=== PATIENT | female | born 1950 | race Caucasian/White ===

== ENCOUNTER 2021-12-11 11:32 | Emergency (ER) | payer MEDICARE, MEDICAID, SELFPAY ==
--- NOTE | ~2021-12-11 | CT_ITS ---
EXAMINATION: CT abdomen pelvis wo con DATE: 12/11/2021 12:40 INDICATION: Lower abdominal pain TECHNIQUE: Computed tomography (CT) of the abdomen and pelvis was performed without intravenous contr ast. Automated exposure control and iterative reconstruction technique were employed. The dose-length product was 558.42 mGy-cm. COMPARISON: 02/03/2015 FINDINGS: Small fat-containing diaphragmatic hernia arising along the posterior dome of the right hemidiaphragm . Lung bases are clear. Heart size is normal. No pericardial or pleural effusion. Small sliding-type hiatal hernia. Cholecystectomy clips the gallbladder fossa. Liver, spleen, pancreas, bilateral adrena l glands and kidneys are normal. Bladder, uterus and bilateral adnexa are unremarkable. Moderate dive rticulosis along the descending and sigmoid colon without adjacent from 3 change to suggest diverticu litis. Small bowel and appendix are normal. No free intraperitoneal gas or fluid. No pathologically e nlarged abdominal or pelvic lymphadenopathy. Chronic appearing superior endplate compression fracture s at T12 and L1 with approximately 20% vertebral body height loss which are new since the prior study . Severe lower lumbar spondylosis. Tiny fat-containing umbilical hernia. IMPRESSION: 1. No acute intra-abdominal/pelvic process. 2. Diverticulosis. 3. Small sliding-type hiatal hernia. Reviewed, dictated and finalized at location A.
[2021-12-11 11:37] VITALS: BP 138/85; PULSE 86; RESP 16; TEMP 36.8; O2SAT 96
[2021-12-11 12:05] LABS: Basophils Absolute Auto 0.1 K/mm3 (0.0-0.1); Basophils Percent Auto 0.7 % (0.2-1.2); Eosinophils Absolute Auto 0.5 K/mm3 (0-0.3); Eosinophils Percent Auto 4.2 % (0-4.4); Hemoglobin 15.5 g/dL (12.0-15.0); Immature Granulocyte Absolute 0.02 K/mm3 (0.00-0.031); Immature Granulocyte Percent A 0.2 % (0-0.5); Lymphocytes Percent Auto 25.1 % (18.3-44.2); Mean Corpuscular Hemoglobin 30.6 pg (26-34); Mean Corpuscular Volume 92.7 fl (80-100); Mean Platelet Volume 9.3 fl (7.4-10.4); Monocytes Absolute Auto 0.7 K/mm3 (0.1-0.6); Monocytes Percent Auto 6.1 % (2.6-8.5); Neutrophils Absolute Auto 6.8 K/mm3 (1.3-6.7); Neutrophils Percent Auto 63.7 % (45.5-73.1); Platelet Count Result 318 k/mm3 (150-375); Red Blood Count 5.07 M/mm3 (4.2-5.4); Red Cell Distribution Width 13.3 % (11.5-14.5); White Blood Count 10.7 K/mm3 (4.5-10.0)
--- NOTE | 2021-12-11 12:18 | ED.GENADULT ---
HPI - General Adult General Chief complaint: Urogenital-Female Stated complaint: UTI Time Seen by Provider: 12/11/21 12:04 Source: RN notes reviewed History of Present Illness HPI narrative: Patient presents to emergency room from home for dysuria. Patient states that she been having dysuria for the past 1 week with urinary frequency as well as some blood in her urine. States associate with some pain in bilateral lower abdomen and some mild right flank pain she denies any fevers or chills chest pain shortness of breath or any other symptoms. States she does have a history of recurrent UTIs patient states she currently takes Percocet for pain last Percocet was at 4 AM this morning Related Data Home Medications Medication Instructions Recorded Confirmed albuterol sulfate 90 mcg/actuation 2 puff inhalation QID PRN Pain 06/22/19 aerosol inhaler (ProAir HFA) (Scale Score 4-6) fluticasone propionate 50 2 spray intranasal DAILY 06/22/19 mcg/actuation nasal spray,suspension (Flonase Allergy Relief) oxycodone-acetaminophen 10 mg-325 1 tablet PO Q6H PRN Pain 06/22/19 mg tablet Allergies Allergy/AdvReac Type Severity Reaction Status Date / Time erythromycin base Allergy Unknown Hives Verified 12/11/21 11:45 tramadol Allergy Unknown Hives Verified 12/11/21 11:45 Review of Systems Review of Systems: Gen.: Denies fevers or chills ENT: Denies congestion Respiratory: Denies shortness of breath or cough CV: Denies chest pain or palpitations GI: See HPI see HPI Musculoskeletal: Denies back pain or muscle pain Neuro: Denies numbness, tingling, weakness or focal weakness Skin: Denies rash Except as documented, all other systems reviewed and negative [facility] Past Medical History Medical History Anxiety Cataract Fibromyalgia Leukemia Social History Social History Smoking status: Former smoker Tobacco type: cigarettes Exam Narrative: APPEARANCE: No acute distress, nontoxic, resting in bed HEENT: Normocephalic, atraumatic, OMM RESPIRATORY: No respiratory distress, clear to auscultation bilaterally with no rhonchi wheezing or rales CARDIOVASCULAR: RRR s murmur ABDOMINAL: Soft nondistended tender palpation right lower quadrant and left lower quadrant no tenderness right upper quadrant left lower quadrant no rebound or guarding, right flank tenderness MUSCULOSKELETAl: Moves all extremities. No clubbing, cyanosis or edema. NEURO: Awake and alert. Following commands, speech normal, no focal deficits SKIN:: Warm, dry. Normal Color PSYCHIATRIC: Normal affect/mood Course Course Emergency Course: Discussed with patient results of workup and diagnosis. Discussed need for follow-up with primary care, proper use of medication, and reasons to return to the emergency department. Patient understands and agrees to current treatment plan Vital Signs Vital signs: Vital Signs Temperature 98.2 F 12/11/21 11:37 Pulse Rate 86 12/11/21 11:37 Respiratory Rate 16 12/11/21 11:37 Blood Pressure 138/85 12/11/21 11:37 Pulse Oximetry 96 12/11/21 11:37 Oxygen Delivery Room Air 12/11/21 11:37 Temperature 98.2 F 12/11/21 11:37 Pulse Rate 86 12/11/21 11:37 Respiratory Rate 16 12/11/21 11:37 Blood Pressure 138/85 12/11/21 11:37 Pulse Oximetry 96 12/11/21 11:37 Oxygen Delivery Room Air 12/11/21 11:37 Medical Decision Making MDM Narrative Medical decision making narrative: Patient's abdomen is soft without significant pain or signs of surgical abdomen on serial exams. Lab and x-ray evaluations are reviewed and patient is felt to be a reasonable candidate for outpatient management. Patient was instructed as to limitations of x-ray and laboratory evaluation and encouraged to return to ED or primary physician for repeat exam in 12 hours if continued or worsening pain Vital Signs
[2021-12-11 12:20] LABS: Add Urine Microscopic? YES; Appearance Urine Clear (Clear); Bilirubin Urine Negative (Negative); Blood Urine 1+ (Negative); Color Urine Yellow (Yellow); Glucose Urine UA Negative (Negative); Ketones Urine Negative (Negative); Leukocyte Esterase Ur 1+ LEU/UL (Negative); Nitrate Urine Negative (Negative); Protein Urine Negative (Negative); Urobilinogen Urine 0.2 mg/dL (<2.0)
[2021-12-11 12:32] LABS: Mucus Urine Rare /lpf; Squamous Epithelial Cell Urine Few /hpf (Few); Transitional Epi Cells Urine Rare /hpf (None Seen)
[2021-12-11] MEDS: SODIUM CHLORIDE 0.9% IV 1,000 ML 999 ML IV CONT (12:56)
[2021-12-11 13:13] LABS: Alanine Aminotransferase 17 U/L (6-35); Albumin Level 4.4 g/dL (3.5-5.1); Alkaline Phosphatase 96 U/L (38-126); Anion Gap 5 mmol/L (8-16); Aspartate Amino Transferase 30 U/L (14-36); Bilirubin,Total 0.3 mg/dL (0.2-1.3); Blood Urea Nitrogen 10 mg/dL (7-17); Calcium 8.9 mg/dL (8.4-10.2); Carbon Dioxide 25 mmol/L (22-30); Chloride 103 mmol/L (98-107); Estimated CRCL calculation 53 ml/min; Estimated Glomerular Filt Rate > 60; Glucose 108 mg/dL (65-110); Potassium 4.2 mmol/L (3.4-5.0); Sodium 133 mmol/L (137-145)
[2021-12-11] MEDS: oxyCODONE/ACETAMINOPHEN (*CRX) 5-325 MG TABLET 1 TABLET PO (13:19)
== END 2021-12-11 14:07 | disposition home or self-care (01) ==
PROVIDERS: Emergency Provider Emergency Medicine; PCP Internal Medicine
DX: N39.0 Urinary tract infection, site not specified (principal); M79.7 Fibromyalgia; Z85.6 Personal history of leukemia; H26.9 Unspecified cataract; Z87.891 Personal history of nicotine dependence; K57.90 Diverticulosis of intestine, part unspecified, without perforation or abscess without bleeding; K44.9 Diaphragmatic hernia without obstruction or gangrene
CPT/HCPCS: 36415; 74176; 80053; 81001; 85025; 87086; 96361; 96365; 99284; A9270; J0696; J7030

== ENCOUNTER 2021-12-29 04:32 | Observation (INO) | payer MEDICARE, MEDICAID, SELFPAY ==
[2021-12-29] VITALS (8 sets, daily range): BP systolic 123–147; BP diastolic 54–86; PULSE 80–110; RESP 16–22; TEMP 35.9–36.2; O2SAT 95–99; BMI 30.8
--- NOTE | ~2021-12-29 | US_ITS ---
US renal BI 12/30/2021 08:21 Procedure: Realtime transabdominal ultrasound of the kidneys and bladder. Indication: Hypercalcemia. Comparison: No prior studies for comparison. Findings: Renal echotexture is normal bilaterally without hydronephrosis, contour deforming mass or r enal calculus. The right kidney measures 11.2 cm and left kidney measures 12.6 cm. Bladder not well d istended for evaluation. Impression: 1: Unremarkable renal ultrasound. No stones, masses or hydronephrosis. Reviewed, dictated and finalized at location A. Impression: 1: Unremarkable renal ultrasound. No stones, masses or hydronephrosis.
--- NOTE | ~2021-12-29 | CT_ITS ---
EXAMINATION: CT brain wo con DATE: 12/29/2021 06:20 INDICATION: Transient alteration of awareness TECHNIQUE: Computed tomography (CT) of the head was performed without intravenous contrast. Sagittal and coronal reconstructions were performed. The mA was adjusted according to patient size. Iterative reconstruction technique was employed. The dose-length product was 1210.67 mGy-cm. COMPARISON: None FINDINGS: No acute intracranial hemorrhage, acute infarction or abnormal extra axial fluid collection. Ventricl es are normal and symmetric. No mass/mass effect. Small bilateral mastoid effusions. Mild mucoperiost eal thickening the bilateral maxillary sinuses. Changes of bilateral intraocular lens replacement. IMPRESSION: 1. No acute intracranial process. Reviewed, dictated and finalized at location A.
--- NOTE | ~2021-12-29 | XR_ITS ---
EXAMINATION: XR chest 1V portable DATE: 12/29/2021 06:20 INDICATION: Altered mental status TECHNIQUE: frontal view of the chest was obtained. COMPARISON: Chest radiograph dated 06/22/19 FINDINGS: The lungs remain clear with no focal airspace opacities, pulmonary edema, pleural effusion or pneumot horax. The cardiomediastinal silhouette is normal. Cholecystectomy clips in right upper quadrant. Mil d to moderate thoracic spondylosis. IMPRESSION: 1. No acute cardiopulmonary disease. Reviewed, dictated and finalized at location A.
--- NOTE | ~2021-12-29 | MR_ITS ---
EXAMINATION: MR brain/brain stem wo con DATE: 12/30/2021 15:54 INDICATION: Altered mental status. TECHNIQUE: Magnetic resonance imaging (MRI) of the brain and brainstem was performed without intraven ous contrast. Sequences included sagittal and axial T1-weighted SE, axial diffusion-weighted FS SE, a xial T2*-weighted GRE, axial 3D SWAN, axial T2-weighted FLAIR, and axial T2-weighted FSE. Apparent di ffusion coefficient (ADC) maps were created. COMPARISON: Head CT dated 12/29/2021 FINDINGS: There are no areas of restricted diffusion to suggest acute infarction. No intracranial hemorrhage or abnormal intracranial mass lesion. There are scattered areas of nonspecific increased T2-weighted si gnal intensity in the cerebral white matter, predominantly involving the deep and periventricular whi te matter which is within normal limits and likely represent sequela from. There are no intraparenchy mal signal abnormalities seen on the other pulse sequences. The ventricles are symmetric and normal i n size. There are no abnormal extra-axial fluid collections. Flow voids are seen in the cerebral bradly sona on the T2-weighted sequences consistent with their expected patency. Left vertebral artery is do minant. The callosal thickening in the bilateral ethmoid and maxillary sinuses. Changes of bilateral intraocular lens replacement. Visualized orbits and soft tissues are unremarkable. IMPRESSION: 1. No acute intracranial process. 2. A few scattered small foci of nonspecific white matter T2 hyperintensity which is within normal li mits for age and likely sequela of chronic small vessel ischemic disease. Reviewed, dictated and finalized at location A. IMPRESSION: 1. No acute intracranial process. 2. A few scattered small foci of nonspecific white matter T2 hyperintensity whi ch is within normal limits for age and likely sequela of chronic small vessel i schemic disease.
--- NOTE | ~2021-12-29 | XR_ITS ---
EXAM: XR foot LT min 3V, XR ankle LT 2V DATE: 12/29/2021 17:03 HISTORY: pain, fall . COMPARISON: None available. FINDINGS: Decreased mineralization. No fracture or dislocation. No lytic or blastic lesion. Mild deg enerative change at multiple midfoot joints and the first MTP. Prominent osteophyte at the cuboid/os cuboidium. No erosion or periosteal change. Mild lateral soft tissue swelling. IMPRESSION: No acute osseous finding in the left ankle or left foot. Reviewed, dictated and finalized at location K. IMPRESSION: No acute osseous finding in the left ankle or left foot.
--- NOTE | ~2021-12-29 | CT_ITS ---
EXAMINATION: CT wrist LT wo con DATE: 12/30/2021 12:41 INDICATION: Distal left radial lesion on radiographs. Left wrist pain post fall. TECHNIQUE: High resolution computed tomography (CT) of the left wrist was performed without intraveno us contrast. Additional sagittal and coronal reconstructions were performed. Automated exposure contr ol and iterative reconstruction technique were employed. The dose-length product was 294.46 mGy-cm. COMPARISON: Left wrist radiographs dated 12/29/2021 FINDINGS: Diffuse osteopenia. No acute fracture. Old healed distal left radial fracture which is healed in near -anatomic alignment. There is mild incongruity <1-2 mm step-off along a likely old healed intra-artic ular fracture plane. There are few lucent screw tracks with corticated margins at the distal left rad ius likely related to previous since removed internal fixation. Small irregular regions of increased attenuation within the distal radius either sclerosis related to changes of healing versus small amou nt of methylmethacrylate. Mild polyarticular osteoarthritis at the distal radioulnar, radiocarpal, tr iscaphe and at the carpometacarpal and metacarpophalangeal joints. Soft tissues are unremarkable. Per ipheral IV at the radial side of the distal forearm. IMPRESSION: 1. Old likely previously internally fixed distal left radial fracture which is healed in near-anatomi c alignment. No acute osseous abnormality. 2. 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 Reviewed, dictated and finalized at location A. IMPRESSION: 1. Old likely previously internally fixed distal left radial fracture which is healed in near-anatomic alignment. No acute osseous abnormality. 2. 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
--- NOTE | ~2021-12-29 | XR_ITS ---
EXAM: XR wrist LT min 3V DATE: 12/29/2021 17:03 HISTORY: pain, fall . COMPARISON: None available. FINDINGS: Decreased mineralization. No fracture or dislocation. Mixed lytic and sclerotic focus in t he distal radius, abutting the joint line, without erosion, periosteal change or endosteal scalloping . Joint spaces are maintained. No erosion or periosteal change. Soft tissues within normal limits. IMPRESSION: No definite fracture, however sensitivity is limited by osteopenia and a nonaggressive ap pearing mixed lytic and sclerotic distal left radial lesion. CT of the wrist may be helpful for furth er characterization and to exclude a subtle acute/pathologic fracture. Reviewed, dictated and finalized at location K. IMPRESSION: No definite fracture, however sensitivity is limited by osteopenia and a nonaggressive appearing mixed lytic and sclerotic distal left radial lesi on. CT of the wrist may be helpful for further characterization and to exclude a subtle acute/pathologic fracture.
--- NOTE | 2021-12-29 04:48 | ED.GENADULT ---
HPI - General Adult General Chief complaint: Altered Mental Status Stated complaint: AMS Time Seen by Provider: 12/29/21 04:34 History of Present Illness HPI narrative: 71-year-old female presented to the emergency department for evaluation of altered mental status. This evening the patient was screaming because she fell from bed. Neighbors called the police and police ultimately called EMS. Upon arrival to the scene by EMS patient was confused. Patient states that she did take her amitriptyline. Patient states she also took a sleeping pill. Patient does admit to marijuana use. Patient states that she did take her amitriptyline and a sleep medication but states she only took 1 of each. Patient knows she is in the hospital but was disorientated to the year. Does have psychomotor agitation. Patient did have a recent treatment in November for a urinary tract infection. Patient does have narcotics prescribed for her. Related Data Home Medications Medication Instructions Recorded Confirmed albuterol sulfate 90 mcg/actuation 2 puff inhalation QID PRN Pain 06/22/19 aerosol inhaler (ProAir HFA) (Scale Score 4-6) fluticasone propionate 50 2 spray intranasal DAILY 06/22/19 mcg/actuation nasal spray,suspension (Flonase Allergy Relief) oxycodone-acetaminophen 10 mg-325 1 tablet PO Q6H PRN Pain 06/22/19 mg tablet Allergies Allergy/AdvReac Type Severity Reaction Status Date / Time erythromycin base Allergy Unknown Hives Verified 12/11/21 11:45 tramadol Allergy Unknown Hives Verified 12/11/21 11:45 Review of Systems Review of Systems: Patient denies any complaint but patient is confused and disoriented ROS unobtainable: Yes unobtainable due to mental status PMFSH Past Medical History Medical History Anxiety Cataract Fibromyalgia Leukemia Social History Social History Smoking status: Former smoker Tobacco type: cigarettes Exam Narrative: APPEARANCE: Somnolent but responsive to voice HEAD: normocephalic, atraumatic. EYES: PERRLA/EOMI, conjunctivae clear. NOSE: Normal no drainage EARS:TMS clear with good light reflex. NECK: Supple. No adenopathy, no masses. RESPIRATORY: Airway patent, respirations nonlabored. Clear to auscultation bilaterally, no rales, rhonchi, wheezing. CARDIOVASCULAR: Regular rate and rhythm without murmurs rubs or gallops. ABDOMINAL: Soft, nontender, nondistended, normal bowel sounds MUSCULOSKELETAL: Moves all extremities. Strength/ROM intact, No edema, No calf tenderness. NEURO: Alert. Cranial nerves II through XII intact. Psychomotor agitation. Grossly intact. SKIN: Abrasions to right elbow and right knee PSYCHIATRIC: Patient disorientated and confabulating Course Course Emergency Course: Patient is afebrile. Patient does have a leukocytosis of 13.4. ABG had no significant abnormalities. Electrolytes are within normal limits. Lactic acid is not elevated. Ammonia is normal. UA shows no evidence of urinary tract infection. Salicylates acetaminophen and ethanol were negative. Patient did test positive for cannabinoids. COVID was negative. Suspect ingestion as the underlying cause of her altered mental status. Chest x-ray shows no acute cardiopulmonary abnormality. Case was discussed with the hospitalist and patient will be admitted to [facility] for altered mental status. Vital Signs Vital signs: Vital Signs Temperature 97.1 F L 12/29/21 05:20 Pulse Rate 92 12/29/21 05:20 Respiratory Rate 22 H 12/29/21 05:20 Blood Pressure 134/86 12/29/21 05:20 Pulse Oximetry 99 12/29/21 05:20 Oxygen Delivery Room Air 12/29/21 05:20 Temperature 97.1 F L 12/29/21 05:20 Pulse Rate 110 H 12/29/21 05:30 Respiratory Rate 20 12/29/21 05:30 Blood Pressure 134/86 12/29/21 05:20 Pulse Oximetry 99 12/29/21 05:20 Oxygen Delivery Room Air
[2021-12-29 05:04] LABS: Device ROOM AIR; Modified Allen's Test Pass; Site Drawn RIGHT RADIAL
[2021-12-29] MEDS: NALOXONE HCL 0.4 MG/ML VIAL IV PUSH (05:17)
[2021-12-29 05:27] LABS: Basophils Absolute Auto 0.1 K/mm3 (0.0-0.1); Basophils Percent Auto 0.5 % (0.2-1.2); Eosinophils Absolute Auto 0.1 K/mm3 (0-0.3); Eosinophils Percent Auto 0.6 % (0-4.4); Hematocrit 42.2 % (37.0-47.0); Hemoglobin 13.8 g/dL (12.0-15.0); Immature Granulocyte Absolute 0.06 K/mm3 (0.00-0.031); Immature Granulocyte Percent A 0.4 % (0-0.5); Lymphocytes Absolute Auto 1.94 K/mm3 (0.9-3.2); Lymphocytes Percent Auto 14.5 % (18.3-44.2); Mean Corpuscular HGB Conc 32.7 g/dl (32-36); Mean Corpuscular Hemoglobin 30.3 pg (26-34); Mean Corpuscular Volume 92.5 fl (80-100); Mean Platelet Volume 9.6 fl (7.4-10.4); Monocytes Absolute Auto 0.7 K/mm3 (0.1-0.6); Monocytes Percent Auto 5.1 % (2.6-8.5); Neutrophils Absolute Auto 10.6 K/mm3 (1.3-6.7); Neutrophils Percent Auto 78.9 % (45.5-73.1); Platelet Count Result 276 k/mm3 (150-375); Red Blood Count 4.56 M/mm3 (4.2-5.4); Red Cell Distribution Width 13.8 % (11.5-14.5); White Blood Count 13.4 K/mm3 (4.5-10.0)
[2021-12-29] MEDS: ALBUTEROL SULFATE NEB 2.5 MG/0.5 ML INH 5 MG (05:35)
[2021-12-29 05:38] LABS: Appearance Urine Clear (Clear); Bilirubin Urine Negative (Negative); Blood Urine Negative (Negative); Color Urine Yellow (Yellow); Glucose Urine UA Negative (Negative); Ketones Urine Negative (Negative); Leukocyte Esterase Ur Trace LEU/UL (Negative); Nitrate Urine Negative (Negative); Protein Urine Negative (Negative); Specific Grav Ur 1.015 (1.001-1.035); Urobilinogen Urine 0.2 mg/dL (<2.0)
[2021-12-29 05:39] LABS: Acetaminophen < 10 ug/mL (10-30); Ammonia < 9 umol/L (9-30); Ethanol < 10 mg/dL (<10); Salicylate < 1.0 mg/dL (2-20)
[2021-12-29 05:40] LABS: Alanine Aminotransferase 21 U/L (6-35); Albumin Level 4.7 g/dL (3.5-5.1); Alkaline Phosphatase 95 U/L (38-126); Anion Gap 5 mmol/L (8-16); Aspartate Amino Transferase 32 U/L (14-36); Bilirubin,Total 0.2 mg/dL (0.2-1.3); Blood Urea Nitrogen 10 mg/dL (7-17); Calcium 10.7 mg/dL (8.4-10.2); Carbon Dioxide 27 mmol/L (22-30); Chloride 105 mmol/L (98-107); Estimated CRCL calculation 48 ml/min; Estimated Glomerular Filt Rate > 60; Glucose 122 mg/dL (65-110); Sodium 137 mmol/L (137-145)
[2021-12-29 05:41] LABS: Lactic Acid Reflex 1.4 mmol/L (0.7-2.0)
[2021-12-29 05:42] LABS: RBC Urine 0-2 /hpf (0-2); Squamous Epithelial Cell Urine Rare /hpf (Few); WBC Urine 0-3 /hpf
[2021-12-29 05:46] LABS: Add Urine Microscopic? YES
[2021-12-29 05:55] LABS: Amphetamine Screen Urine Negative (Negative); Barbiturate Screen Urine Negative (Negative); Benzodiazepines Screen Urine Negative (Negative); Cannabinoid Screen Urine Positive (Negative); Cocaine Screen Urine Negative (Negative); Methadone Screen Urine Negative (Negative); Opiate Screen Urine Negative (Negative); Phencyclidine Screen Urine Negative (Negative)
[2021-12-29 06:17] LABS: Alveolar/Arterial O2 Gradient 29.5 mmHg; Base Excess ABG 2.1 mEq/l (+/-2.0); Fractional Inspired Oxygen 21 %; HCO3 ABG 26.5 mEq/l (22.0-26.0); Oxygen Content ABG 18.8 %vol (16.0-22.0); Oxygen Saturation ABG 94.9 % (95.0-100.0); Oxyhemoglobin 92.9 % THb (90.0-100.0); PCO2 ABG 40.5 mmHg (35.0-45.0); PO2 ABG 71.7 mmHg (80.0-100.0); PO2 FiO2 Ratio Arterial Blood 3.41 %; Total Hemoglobin 14.4 g/dL (12.0-18.0); pH ABG 7.433 (7.350-7.450)
[2021-12-29 06:20] LABS: SARS-CoV-2 RNA PCR Negative
--- NOTE | 2021-12-29 09:49 | PM.IMHP ---
H&P: HPI History of Present Illness Date/Time: 12/29/21 09:49 Chief Complaint: Altered mental status Narrative: Katey Santacruz is a 71 yo female with medical hhistory of anxiety, fibromyalgia and AML in remission. She presented to the ED, from home, via EMS. The patient is confused and does not know why she is in the hospital. Patient history was obtained from medical records. The patient reportedly was found by neighbors on the ground and screaming because she fell from the bed. She reportedly took amitriptyline, a sleeping pill and admits to nightly marijuana use for sleep. The patient states she did take these medications and then a few minutes later states that she did not take them for several days. She reports recently starting amitryptyline, but does endorse taking it in the past. The patient is oriented to self only and demonstrates psychomotor agitation. She is easily distracted. She lives alone and reports her left her in 2018, although her former [id number] reports the patient's in 2018. She does endorse sinus congestion and pain to left wrist and left foot. She denies changes in speech, unilateral extremity weakness, chest pain, SOB, vision changes, SHETTY, abdominal pain, N/V/D, dysuria or flank pain. In the ED, vitals were stable and she was afebrile. Lab work shows mildly elevated WBC 13.4, but otherwise normal CBC, CMP, ammonia, lactic acid, acetaminophen, ethanol, and salicylate levels. ABG was unremarkable. Tox screen was positive for annabinoids. Chest x-ray and CT head were negative for acute abnormalities. She was treated with Narcan IV x1 in the ED. Review of Systems Review of Systems: All systems reviewed & are unremarkable except as noted in HPI and below Gastrointestinal: Gastrointestinal: Reports constipation (chronic, last BM 2 days ago) [facility] Past Medical History Medical History (Updated 12/29/21 @ 16:48 by Marlee Moe APRN) Anxiety Cataract Fibromyalgia Leukemia Family History Family History Other Unknown family medical history Social History Social History (Updated 12/29/21 @ 16:31 by Marlee Moe APRN) Social History: Smoking packs per day: 0.4 Smoking cigarettes per day: 8.0 Years smoked: 10 Smoking pack-years: 4.00 Smoking status: Current every day smoker Tobacco type: cigarettes Alcohol intake: former Alcohol use details: denies recent alcohol use Substance use: current Substance use type: marijuana and painkillers Last use: 12/28/2021 Living arrangements: alone Gender identity (if verbalized by the patient): Female Spiritual care concerns: No Meds Home Medications and Allergies Home Medications Medication Instructions Recorded Confirmed Type albuterol sulfate 90 mcg/actuation 2 puff inhalation QID PRN Pain 06/22/19 12/29/21 History aerosol inhaler (ProAir HFA) (Scale Score 4-6) benzonatate 100 mg capsule 100 mg PO TID PRN cough #10 caps 06/22/19 12/29/21 Rx ([facility]ajardo) fluticasone propionate 50 2 spray intranasal DAILY 06/22/19 12/29/21 History mcg/actuation nasal spray,suspension (Flonase Allergy Relief) oxycodone-acetaminophen 10 mg-325 1 - 2 tablet PO Q4-6H PRN Pain 06/22/19 12/29/21 History mg tablet amitriptyline 75 mg tablet 75 mg PO HS 12/29/21 12/29/21 History Allergies Allergy/AdvReac Type Severity Reaction Status Date / Time erythromycin base Allergy Unknown Hives Verified 12/29/21 09:56 tramadol Allergy Unknown Hives Verified 12/29/21 09:56 Vital Signs Vital Signs - 24 hr 12/29/21 05:20 12/29/21 05:25 12/29/21 05:30 Temperature 97.1 F L Pulse Rate 92 110 H 110 H Respiratory Rate 22 H 20 20 Blood Pressure 134/86 Pulse Oximetry 99 Oxygen Delivery Room Air 12/29/21 07:29 Temperature Pulse Rate 97 Respiratory Rate 16 Blood Pressure 130/71 Pulse Oximetry 95 Oxygen Delivery
[2021-12-29 10:40] LABS: Thyroid Stimulating Hormone Reflex 0.726 uIU/mL (0.465-4.68)
[2021-12-29] MEDS: HALOPERIDOL 1 MG TABLET PO (13:40)
[2021-12-29] MEDS: FLUTICASONE PROPIONATE 0.05% NA SPR 16 GM BTL (*BKC) 2 SPRAY NASAL (14:26)
[2021-12-29] MEDS: oxyCODONE/ACETAMINOPHEN (*CRX) 10-325 MG TABLET 1 TAB PO ×2 (15:45→20:50)
--- NOTE | 2021-12-29 16:08 | ECG_ITS ---
Measurements Intervals [place] Rate: 84 P: 74 RI: 169 QRS: 71 QRSD: 94 T: 76 QT: 381 QTc: 451 Interpretive Statements SINUS RHYTHM INCOMPLETE RIGHT BUNDLE BRANCH BLOCK MINIMAL Q WAVES- INFERIOR LEADS BORDERLINE ECG Electronically Signed On 12-29-2021 20:37:33 CDT by Alexandro Mckeon D.O.
--- NOTE | 2021-12-29 17:18 | PC.NURSE ---
PATIENT DOES NOT HAVE A POWER OF DIRECTOR OF STUDENT FINANCIAL AID
[2021-12-29] MEDS: SODIUM CHLORIDE 0.9% IV 1,000 ML 75 ML IV CONT (17:34)
[2021-12-29] MEDS: MELATONIN 5 MG TABLET PO (20:37)
[2021-12-30] MEDS: oxyCODONE/ACETAMINOPHEN (*CRX) 10-325 MG TABLET 1 TAB PO ×4 (03:25→22:25)
[2021-12-30 05:41] VITALS: BP 132/70; PULSE 75; RESP 16; TEMP 36.1; O2SAT 95
[2021-12-30] MEDS: SODIUM CHLORIDE 0.9% IV 1,000 ML 75 ML IV CONT (06:51)
[2021-12-30 07:26] LABS: Basophils Absolute Auto 0.1 K/mm3 (0.0-0.1); Basophils Percent Auto 0.8 % (0.2-1.2); Eosinophils Absolute Auto 0.4 K/mm3 (0-0.3); Eosinophils Percent Auto 4.7 % (0-4.4); Hematocrit 37.1 % (37.0-47.0); Hemoglobin 12.2 g/dL (12.0-15.0); Immature Granulocyte Absolute 0.02 K/mm3 (0.00-0.031); Immature Granulocyte Percent A 0.3 % (0-0.5); Lymphocytes Absolute Auto 2.76 K/mm3 (0.9-3.2); Mean Corpuscular HGB Conc 32.9 g/dl (32-36); Mean Corpuscular Hemoglobin 30.3 pg (26-34); Mean Corpuscular Volume 92.3 fl (80-100); Mean Platelet Volume 9.8 fl (7.4-10.4); Monocytes Absolute Auto 0.6 K/mm3 (0.1-0.6); Monocytes Percent Auto 7.5 % (2.6-8.5); Neutrophils Absolute Auto 4.1 K/mm3 (1.3-6.7); Neutrophils Percent Auto 51.7 % (45.5-73.1); Platelet Count Result 239 k/mm3 (150-375); Red Blood Count 4.02 M/mm3 (4.2-5.4); Red Cell Distribution Width 13.6 % (11.5-14.5); White Blood Count 7.9 K/mm3 (4.5-10.0)
[2021-12-30 07:34] LABS: Alanine Aminotransferase 15 U/L (6-35); Albumin Level 3.3 g/dL (3.5-5.1); Alkaline Phosphatase 72 U/L (38-126); Anion Gap 3 mmol/L (8-16); Aspartate Amino Transferase 23 U/L (14-36); Bilirubin,Total 0.2 mg/dL (0.2-1.3); Blood Urea Nitrogen 8 mg/dL (7-17); Carbon Dioxide 27 mmol/L (22-30); Chloride 107 mmol/L (98-107); Estimated CRCL calculation 54 ml/min; Estimated Glomerular Filt Rate > 60; Glucose 97 mg/dL (65-110); Potassium 3.4 mmol/L (3.4-5.0); Sodium 137 mmol/L (137-145)
[2021-12-30] MEDS: ENOXAPARIN 40 MG/0.4 ML SYRINGE SUB-Q (08:30)
[2021-12-30] MEDS: FLUTICASONE PROPIONATE 0.05% NA SPR 16 GM BTL (*BKC) 2 SPRAY NASAL (08:30)
[2021-12-30] MEDS: ALBUTEROL SULFATE (*SP) AEROSOL 1 PUFF 2 PUFF INHALATION ×2 (09:05→20:03)
[2021-12-30 09:08] VITALS: O2SAT 96
--- NOTE | 2021-12-30 13:03 | PM.IMPN ---
Progress Note: A&P Assessment and Plan (1) Altered mental status: Code(s): R41.82 - Altered mental status, unspecified Status: Acute Assessment and Plan: ABG, CMP, ammonia, lactic acid, CT head within normal limits on admission. Mildly elevated WBC on admission, but within normal limits today. No s/s acute infection. ?polypharmacy versus adverse drug response to amitriptyline or drug ingestion. Hold amitriptyline. Confusion waxing and waning. Patient more alert and appropriate today, however, still with episodes of confusion. Haldol 2 mg PO Q6 PRN for acute agitation. TSH normal, B12 pending. Calcium 10.7 with normal albumin on admission. Calcium improved with IV hydration. Saline lock IV fluids. Rule out multiple myeloma given AMS, hypercalcemia and h/o leukemia: Renal US within normal limits. Upep & Spep pending. Check MRI brain given persistent confusion. (2) Arthralgia of left wrist: Code(s): M25.532 - Pain in left wrist Status: Acute Assessment and Plan: X-ray left wrist with distal radial lytic lesion. CT wrist shows old healed ORIF. rest, ice pack and elevate PRN. PRN pain medications. Continue PT/OT (3) Left foot pain: Code(s): M79.672 - Pain in left foot Status: Acute Assessment and Plan: X-ray left foot and ankle without fracture or dislocation rest, ice pack and elevate PRN. PRN pain medications. Consult PT/OT (4) Fibromyalgia: Code(s): M79.7 - Fibromyalgia Status: Chronic Assessment and Plan: Hold amitriptyline. Continue percocet 10/325 mg PRN. Plan Diet: Regular diet Activity: Up with assistance, PT/OT consult Disposition: Patient plans to stay with a friend at discharge, she may need home health at discharge. Estimated LOS: 2 days CODE STATUS: FULL CODE Time Spent With Patient Time with patient: 15 - 25 minutes Subjective Date/time seen: 12/30/21 13:03 Exam Narrative: Constitutional:? Moderate distress. Well-developed and well-nourished older adult female. Mental status/Neuro: Restless. Alert. Oriented to self only. Follows intermittent commands. Speech clear, unpressured, easily distracted. Moderately agitated. Full strength all extremities 5/5. No focal deficits. No facial droop. Tongue midline. Does not cooperate with EOM. CN 2, 5, 7, 8, 9-12 grossly intact. HEENT:? Normocephalic. Atraumatic. Pupils equal and round, 2 mm bilaterally. Moist mucous membranes.? No scleral icterus.? No lymphadenopathy. Neck:?Supple. No carotid bruits or JVD noted Lungs:? Lung sounds clear to auscultation bilaterally. RR regular and unlabored.? No accessory muscle use.?Speaking in full sentences Cardiovascular:? Normal S1-S2 regular rate and rhythm. No murmurs, gallops or rubs. Abdomen:? Soft, obese, and nontender.? No palpable masses. Normoactive bowel sounds. Extremities:? Moves all 4 extremities bilaterally with equal strength. Tenderness to palpation left wrist & left ankle. No erythema, edema or ecchymosis. Radial and dorsalis pedis pulses +2 bilaterally. Skin:? Fair, warm & dry, scattered ecchymosis BUE. No open wounds or rashes. Objective Data Vital Signs Vital Signs: Vital Signs - 24 hr 12/29/21 14:00 12/29/21 20:00 12/29/21 21:05 Temperature 96.8 F L 97.0 F L Pulse Rate 80 83 Respiratory Rate 20 16 Blood Pressure 123/54 L 147/66 H Pulse Oximetry 98 95 Oxygen Delivery Room Air 12/30/21 05:41 12/30/21 09:08 Temperature 96.9 F L Pulse Rate 75 Respiratory Rate 16 Blood Pressure 132/70 Pulse Oximetry 95 96 Oxygen Delivery Room Air Intake/Output Intake/Output: Intake & Output 12/27/21 12/28/21 12/29/21 12/30/21 23:59 23:59 23:59 23:59 Intake Total 567 1740 Output Total 525 Balance 567 1215 Meds/Results Medications: Active Medications Generic Name Dose Route Start Last Admin Trade Name Freq PRN Reason Stop Dose Admin Acetaminophen 650 mg 07/0
[2021-12-30] MEDS: HALOPERIDOL 1 MG TABLET 2 MG PO (13:18)
[2021-12-30 14:00] VITALS: BP 124/39; PULSE 74; RESP 20; TEMP 36.1; O2SAT 97
[2021-12-30 20:08] VITALS: O2SAT 97
[2021-12-30] MEDS: MELATONIN 5 MG TABLET PO (20:12)
[2021-12-30 22:00] VITALS: BP 100/85; PULSE 89; RESP 16; TEMP 36.5; O2SAT 98
[2021-12-31] MEDS: MAG HYDROX/AL HYDROX/SIMETH 30 ML UDC PO (00:40)
[2021-12-31] MEDS: oxyCODONE/ACETAMINOPHEN (*CRX) 10-325 MG TABLET 1 TAB PO ×2 (03:36→08:48)
[2021-12-31 06:00] VITALS: BP 119/60; PULSE 81; RESP 16; TEMP 36.3; O2SAT 97
[2021-12-31 08:00] VITALS: O2SAT 97
[2021-12-31] MEDS: ENOXAPARIN 40 MG/0.4 ML SYRINGE SUB-Q (09:24)
[2021-12-31 11:41] VITALS: O2SAT 97
[2021-12-31] MEDS: ALBUTEROL SULFATE (*SP) AEROSOL 1 PUFF 2 PUFF INHALATION (11:41)
--- NOTE | 2021-12-31 12:20 | PM.DS ---
DS: Admitting Diagnosis Discharge Date 12/31/2021 1220 Admitting Diagnosis Altered mental status Arthralgia of left wrist Arthralgia of left foot DS: Discharge Diagnosis Discharge Diagnosis (1) Encephalopathy acute: Code(s): G93.40 - Encephalopathy, unspecified Status: Acute DS: Summary Hospital Course Reason for hospitalization: Altered mental status Hospital Course: Katey Santacruz is a 71 yo female with medical history of anxiety, fibromyalgia and AML in remission. She presented to the ED, from home, via EMS. The patient was confused and does not know why she is in the hospital. Patient history was obtained from medical records. The patient reportedly was found by neighbors on the ground and screaming because she fell from the bed. She reportedly took amitriptyline, a sleeping pill and admits to nightly marijuana use for sleep. The patient states she did take these medications and then a few minutes later states that she did not take them for several days. She reports recently starting amitryptyline, but does endorse taking it in the past. The patient was oriented to self only and demonstrated psychomotor agitation. She was easily distracted. She lives alone and reports her left her in 2018, although her former [id number] reported the patient's in 2018. She endorsed sinus congestion and pain to left wrist and left foot. She denied changes in speech, unilateral extremity weakness, chest pain, SOB, vision changes, SHETTY, abdominal pain, N/V/D, dysuria or flank pain. In the ED, vitals were stable and she was afebrile. Lab work showed mildly elevated WBC 13.4, but otherwise normal CBC, CMP, ammonia, lactic acid, acetaminophen, ethanol, and salicylate levels. ABG was unremarkable. Tox screen was positive for cannabinoids. Chest x-ray and CT head were negative for acute abnormalities. She was treated with Narcan IV x1 in the ED. She was referred for observation and further evaluation of altered mental status. CT head was negative. MRI was obtained and was negative for acute intracranial process. B12 and TSH were normal. MMSE was 23/30 and Geriatric depression scale was 2. She was treated with 2 doses of PO Haldol for acute agitation, initially. Her mental status improved with hydration. Acute encephalopathy was thought to be secondary to ingestion of multiple medications, including sleeping medication, amtriptyline and marijuana. Left wrist was imaged secondary to pain and recent fall. possible subacute fracture was identified and CT wrist was recommended. CT wrist was obtained and showed old healed prior fracture with repair. Left foot and ankle were negative for fracture or dislocation. She was noted to have mildly elevated calcium level. She was treated with IV hydration and her calcium level improved. Given her history of leukemia and concurrent altered mental status with high calcium level, Renal US which was negative. Upep and Spep testing was completed but pending at the time of discharge. PT/OT was consulted and the patient did not need home health services. She was discharged home with a friend in stable condition with baseline cognitive status. She was counseled on medications and not combining sedative medications with recreational drugs. Additionally, she was instructed to hold her amitriptyline until evaluated by her PCP. As stated above her MMSE score was 23/30 and should monitored by her PCP. Status at Discharge Cognitive/behavioral status at discharge: AAOx3, forgetful, pleasant, impulsive. Functional status at discharge: uses cane/walker Overall status at discharge: patient is progressing back to baseline Time Spent with Patient Time attestation: Total time spent providing and/or coordinating discharge services: Time spent: Greater than 30 minutes Exam Narrative: Constitutional:? No distress. Well-developed and well-nourished older adult female. Mental status/Neuro: AAOx3, follows commands
[2021-12-31 19:03] LABS: Albumin 3.8 g/dL (3.8-4.8); Alpha 1 Globulin 0.3 g/dL (0.2-0.3); Alpha 2 Globulin 0.7 g/dL (0.5-0.9); Beta 1 Globulin 0.4 g/dL (0.4-0.6); Gamma Globulin 0.6 g/dL (0.8-1.7); Interpretation Consistent with
== END 2021-12-31 13:40 | disposition home or self-care (01) ==
LOC: ANHED 06:48 → ANH3MEDSUR 09:57
PROVIDERS: Admitting Provider Internal Medicine; Emergency Provider Emergency Medicine; PCP Internal Medicine; Visit Provider Nurse Practitioner Family
DX: G93.40 Encephalopathy, unspecified (principal); M25.532 Pain in left wrist; M79.672 Pain in left foot; R09.81 Nasal congestion; W06.XXXA Fall from bed, initial encounter; M79.7 Fibromyalgia; F41.9 Anxiety disorder, unspecified; C92.01 Acute myeloblastic leukemia, in remission; F12.90 Cannabis use, unspecified, uncomplicated; F17.210 Nicotine dependence, cigarettes, uncomplicated; Z79.51 Long term (current) use of inhaled steroids; Z79.891 Long term (current) use of opiate analgesic; Z20.822 Contact with and (suspected) exposure to COVID-19
CPT/HCPCS: 36415; 36600; 70450; 70551; 71045; 73110; 73200; 73600; 73630; 76775; 80053; 80307; 81001; 82140; 82570; 82607; 82805; 83605; 83735; 84155; 84156; 84165; 84166; 84443; 85025; 93005; 94640; 96361; 96372; 96374; 97161; 97165; 99285; A9270; C9803; G0378; J1650; J2310; J7030; U0003; U0005

== ENCOUNTER 2022-02-20 21:04 | Emergency (ER) | payer MEDICARE, MEDICAID, SELFPAY ==
[2022-02-20 21:11] VITALS: BP 119/59; PULSE 97; RESP 17; TEMP 36.4; O2SAT 99
--- NOTE | 2022-02-20 22:15 | ED.ANIMALBIT ---
HPI - Animal Bite General Chief Complaint: Animal Bite Stated Complaint: Spider Bite with Swelling Time Seen by Provider: 02/20/22 21:21 Source: patient Mode of arrival: ambulatory Limitations: no limitations History of Present Illness HPI narrative: This is a 71 year old female that presents to the ER for a possible insect bite sustained a couple of days ago. Reports some swelling around the area on her hand. Reports she was concerned it may be infected which prompted her to be seen. Denies fever or erythema. Related Data Home Medications Medication Instructions Recorded Confirmed albuterol sulfate 90 mcg/actuation 2 puff inhalation QID PRN Pain 06/22/19 12/29/21 aerosol inhaler (ProAir HFA) (Scale Score 4-6) fluticasone propionate 50 2 spray intranasal DAILY 06/22/19 12/29/21 mcg/actuation nasal spray,suspension (Flonase Allergy Relief) oxycodone-acetaminophen 10 mg-325 1 - 2 tablet PO Q4-6H PRN Pain 06/22/19 12/29/21 mg tablet amitriptyline 75 mg tablet 75 mg PO HS 12/29/21 12/29/21 Allergies Allergy/AdvReac Type Severity Reaction Status Date / Time erythromycin base Allergy Unknown Hives Verified 02/20/22 21:20 tramadol Allergy Unknown Hives Verified 02/20/22 21:20 Review of Systems Review of Systems: CONSTITUTIONAL: Denies fever SKIN: Reports itching. All systems reviewed & are unremarkable except as noted in HPI and below PMFSH Past Medical History Medical History (Updated 02/20/22 @ 22:21 by Martha Hurley PA-C) Anxiety Cataract Fibromyalgia Leukemia Family History Family History Other Unknown family medical history Social History Social History (Updated 12/29/21 @ 16:31 by Marlee Moe APRN) Social History: Smoking packs per day: 0.4 Smoking cigarettes per day: 8.0 Years smoked: 10 Smoking pack-years: 4.00 Smoking status: Current every day smoker Tobacco type: cigarettes Alcohol intake: former Alcohol use details: denies recent alcohol use Substance use: current Substance use type: marijuana and painkillers Last use: 12/28/2021 Gender identity (if verbalized by the patient): Female Spiritual care concerns: No Exam Narrative: GENERAL: Well-appearing, well-nourished, and in no acute distress. HEAD: Normocephalic, atraumatic. EYES: EOMI. EXTREMITIES: Normal range of motion. Small scabbed lesion noted to the right hand dorsal surface with very mild swelling of the fingers. No erythema or warmth SKIN: Warm, dry, no rash. NEURO: No focal deficits. Alert and oriented x3. PSYCH: Normal mood and affect Course Vital Signs Vital signs: Vital Signs Temperature 97.5 F L 02/20/22 21:11 Pulse Rate 97 02/20/22 21:11 Respiratory Rate 17 02/20/22 21:11 Blood Pressure 119/59 L 02/20/22 21:11 Pulse Oximetry 99 02/20/22 21:11 Oxygen Delivery Room Air 02/20/22 21:11 Temperature 97.5 F L 02/20/22 21:11 Pulse Rate 97 02/20/22 21:11 Respiratory Rate 17 02/20/22 21:11 Blood Pressure 119/59 L 02/20/22 21:11 Pulse Oximetry 99 02/20/22 21:11 Oxygen Delivery Room Air 02/20/22 21:11 MDM - Animal Bite MDM Narrative Medical decision making narrative: Patient presents to the emergency department after a possible insect bite a couple of days prior. Reports she is up-to-date on tetanus. She is afebrile and nontoxic-appearing. There is no erythema or warmth of the area. No signs of infection currently. She does have some mild swelling around the area. Was instructed on use of antihistamines. She is to follow-up with primary care doctor. She was given warnings to return to the ER Critical Care Time Critical Care Time Critical Care Time: No Discharge Plan Discharge Clinical Impression: Insect bite Qualifiers: Encounter type: initial encounter Site of insect bite: hand Laterality: right Qualified Code(s): S60.561A - Insect bite (nonvenomous
--- NOTE | 2022-02-20 22:24 | PC.NURSE ---
Pt seen ambulating out of ED with steady gait, in no obvious distress.
== END 2022-02-20 22:26 | disposition home or self-care (01) ==
PROVIDERS: Emergency Provider Emergency Medicine; PCP Internal Medicine
DX: S60.561A Insect bite (nonvenomous) of right hand, initial encounter (principal); M79.7 Fibromyalgia; F41.9 Anxiety disorder, unspecified; F17.210 Nicotine dependence, cigarettes, uncomplicated; H26.9 Unspecified cataract; Z85.6 Personal history of leukemia; W57.XXXA Bitten or stung by nonvenomous insect and other nonvenomous arthropods, initial encounter
CPT/HCPCS: 99282

== ENCOUNTER 2022-10-05 15:22 | Emergency (ER) | payer MEDICARE, MEDICAID, SELFPAY ==
[2022-10-05 15:24] VITALS: BP 101/84; PULSE 99; RESP 17; TEMP 36.7; O2SAT 97
[2022-10-05 16:26] LABS: Basophils Absolute Auto 0.1 K/mm3 (0.0-0.1); Basophils Percent Auto 0.9 % (0.2-1.2); Eosinophils Absolute Auto 0.3 K/mm3 (0-0.3); Eosinophils Percent Auto 3.9 % (0-4.4); Hematocrit 48.3 % (37.0-47.0); Hemoglobin 15.7 g/dL (12.0-15.0); Immature Granulocyte Absolute 0.02 K/mm3 (0.00-0.031); Immature Granulocyte Percent A 0.2 % (0-0.5); Lymphocytes Absolute Auto 2.73 K/mm3 (0.9-3.2); Lymphocytes Percent Auto 30.9 % (18.3-44.2); Mean Corpuscular HGB Conc 32.5 g/dl (32-36); Mean Corpuscular Hemoglobin 31.2 pg (26-34); Mean Platelet Volume 9.5 fl (7.4-10.4); Monocytes Absolute Auto 0.6 K/mm3 (0.1-0.6); Monocytes Percent Auto 6.2 % (2.6-8.5); Neutrophils Absolute Auto 5.1 K/mm3 (1.3-6.7); Neutrophils Percent Auto 57.9 % (45.5-73.1); Platelet Count Result 276 k/mm3 (150-375); Red Blood Count 5.03 M/mm3 (4.2-5.4); Red Cell Distribution Width 13.9 % (11.5-14.5); White Blood Count 8.8 K/mm3 (4.5-10.0)
[2022-10-05 16:33] LABS: Appearance Urine Clear (Clear); Bacteria Urine None Seen /hpf; Bilirubin Urine Negative (Negative); Blood Urine Trace (Negative); Color Urine Yellow (Yellow); Glucose Urine UA Negative (Negative); Ketones Urine Negative (Negative); Leukocyte Esterase Ur Trace LEU/UL (Negative); Nitrate Urine Negative (Negative); Non Pathogenic Casts 0-2; Protein Urine Negative (Negative); RBC Urine 0-2 /hpf (0-2); Specific Grav Ur 1.012 (1.001-1.035); Squamous Epithelial Cell Urine Occasional /hpf (Few); Urobilinogen Urine 0.2 mg/dL (<2.0); WBC Urine 0-5 /hpf; pH Urine 5.5 (5.0-9.0)
[2022-10-05 16:37] LABS: Alanine Aminotransferase 29 U/L (6-35); Albumin Level 4.9 g/dL (3.5-5.1); Alkaline Phosphatase 94 U/L (38-126); Anion Gap 9 mmol/L (8-16); Aspartate Amino Transferase 26 U/L (14-36); Bilirubin,Total 0.4 mg/dL (0.2-1.3); Blood Urea Nitrogen 12 mg/dL (7-17); Calcium 9.6 mg/dL (8.4-10.2); Carbon Dioxide 24 mmol/L (22-30); Chloride 101 mmol/L (98-107); Estimated CRCL calculation 46 ml/min; Estimated Glomerular Filt Rate 54; Glucose 142 mg/dL (65-110); Potassium 4.4 mmol/L (3.4-5.0); Sodium 134 mmol/L (137-145)
[2022-10-05 16:51] LABS: Add Urine Microscopic? YES
--- NOTE | 2022-10-05 17:12 | ED.FEMALEGU ---
HPI - Female Genitourinary General Chief complaint: Urogenital-Female Stated complaint: UTI Time Seen by Provider: 10/05/22 15:51 Source: patient Mode of arrival: ambulatory Limitations: no limitations History of Present Illness HPI Narrative: 71-year-old with a history of anxiety, recurrent UTI here with complaints of urinary symptoms for past few weeks. Patient states that she went to urgent care twice first she was given Macrobid which made her vomit and now she is placed on Bactrim. She denies any fever or chills. She states that she has seen a urologist in the past several years ago and had cystoscopy several years ago. She presently denies any nausea or vomiting fever or chills. No flank pain. MD elicited complaint: dysuria Pertinent past history: recurrent UTIs Onset (ago): week(s) Severity: mild Related Data Home Medications Medication Instructions Recorded Confirmed albuterol sulfate 90 mcg/actuation 2 puff inhalation QID PRN Pain 06/22/19 12/29/21 aerosol inhaler (ProAir HFA) (Scale Score 4-6) fluticasone propionate 50 2 spray intranasal DAILY 06/22/19 12/29/21 mcg/actuation nasal spray,suspension (Flonase Allergy Relief) oxycodone-acetaminophen 10 mg-325 1 - 2 tablet PO Q4-6H PRN Pain 06/22/19 12/29/21 mg tablet amitriptyline 75 mg tablet 75 mg PO HS 12/29/21 12/29/21 Allergies Allergy/AdvReac Type Severity Reaction Status Date / Time erythromycin base Allergy Unknown Hives Verified 02/20/22 21:20 tramadol Allergy Unknown Hives Verified 02/20/22 21:20 Review of Systems Review of Systems: All systems reviewed & are unremarkable except as noted in HPI and below Constitutional: Constitutional: Reports no additional constitutional complaints Eyes: Eyes: Reports no additional eye complaints ENT: Reports system reviewed and no additional complaints, except as documented Cardiovascular: Cardiovascular: Reports no additional cardiovascular complaints Respiratory: Respiratory: Reports no additional respiratory complaints Gastrointestinal: Gastrointestinal: Reports no additional gastrointestinal complaints Genitourinary: Genitourinary: Reports as per HPI Musculoskeletal: Musculoskeletal: Reports no additional musculoskeletal complaints Integumentary/Breasts: Skin/Breast: Reports system reviewed and no additional complaints, except as docu PMFSH Past Medical History Medical History (Updated 10/05/22 @ 17:18 by Dony Borrero MD) Anxiety Cataract Fibromyalgia Leukemia Family History Family History Other Unknown family medical history Social History Social History (Updated 12/29/21 @ 16:31 by Marlee Moe APRN) Social History: Smoking packs per day: 0.4 Smoking cigarettes per day: 8.0 Years smoked: 10 Smoking pack-years: 4.00 Smoking status: Current every day smoker Tobacco type: cigarettes Alcohol intake: former Alcohol use details: denies recent alcohol use Substance use: current Substance use type: marijuana and painkillers Last use: 12/28/2021 Living arrangements: alone Gender identity (if verbalized by the patient): Female Spiritual care concerns: No Exam Narrative: GENERAL: Well-appearing, well-nourished, and in no acute distress. HEAD: Normocephalic, atraumatic. EYES: PERRLA and EOMI. NECK: Supple. CHEST: Clear to auscultation. No respiratory distress. HEART: Regular rate and rhythm. No murmur heard. Normal peripheral pulses. ABDOMEN: Soft, nontender, nondistended, normal active bowel sounds. EXTREMITIES: Normal range of motion. No edema. SKIN: Warm, dry, no rash. NEURO: No focal deficits. Alert and oriented x3. PSYCH: Normal mood and affect. Course Course Emergency Course: Recommended patient to follow-up with urology for repeated urinary tract infections. At this time she does not require any antibiotic Vital Signs Vital signs: Vital Signs T
== END 2022-10-05 17:26 | disposition home or self-care (01) ==
PROVIDERS: Emergency Medicine; Emergency Provider Family Medicine
DX: R30.0 Dysuria (principal); M79.7 Fibromyalgia; F41.9 Anxiety disorder, unspecified; Z85.6 Personal history of leukemia; F17.210 Nicotine dependence, cigarettes, uncomplicated; Z87.442 Personal history of urinary calculi
CPT/HCPCS: 36415; 80053; 81001; 85025; 99283

== ENCOUNTER 2022-12-02 14:44 | Emergency (ER) | payer MEDICARE, MEDICAID, SELFPAY ==
[2022-12-02 14:50] VITALS: BP 133/76; PULSE 87; RESP 16; TEMP 36.1; O2SAT 97
--- NOTE | 2022-12-02 15:51 | ED.NAVMDI ---
HPI - Nausea/Vomiting/Diarrhea General Chief complaint: Nausea/Vomiting/Diarrhea Stated complaint: vomiting Time Seen by Provider: 12/02/22 15:30 History of Present Illness HPI Narrative: 71-year-old female with a history of leukemia reports for evaluation of nausea and vomiting since yesterday. Patient states she went to her PCP yesterday due to having difficulties sleeping, she was given a prescription for tranquilizers . The prescriptions were hydroxyzine 50 mg and paroxetine 20 mg. Patient states after she took 1 dose of each medications, she began projectile vomiting throughout the night. Reports multiple episodes of vomiting, is unable to tell me how many times. Patient endorses feeling lightheaded when she goes from sitting to standing, which she attributes to dehydration she also states she is being treated outpatient for urinary tract infection. She was given a prescription for Bactrim yesterday, however has not taking a dose secondary to nausea. She also is requesting a pain pill. She normally takes oxycodone 10 mg and has been unable to take her pain medication secondary to nausea and vomiting. She states she takes pain for cracks and breaks of her body. She denies chest pain, shortness of breath, fever, body aches or chills, abdominal pain, diarrhea, focal numbness or weakness, vision changes. Related Data Home Medications Medication Instructions Recorded Confirmed albuterol sulfate 90 mcg/actuation 2 puff inhalation QID PRN Pain 06/22/19 12/29/21 aerosol inhaler (ProAir HFA) (Scale Score 4-6) fluticasone propionate 50 2 spray intranasal DAILY 06/22/19 12/29/21 mcg/actuation nasal spray,suspension (Flonase Allergy Relief) oxycodone-acetaminophen 10 mg-325 1 - 2 tablet PO Q4-6H PRN Pain 06/22/19 12/29/21 mg tablet amitriptyline 75 mg tablet 75 mg PO HS 12/29/21 12/29/21 Allergies Allergy/AdvReac Type Severity Reaction Status Date / Time erythromycin base Allergy Unknown Hives Verified 12/02/22 15:49 tramadol Allergy Unknown Hives Verified 12/02/22 15:49 Review of Systems Review of Systems: CONSTITUTIONAL: Denies fever, chills EYES: Denies visual changes, redness, or discharge. ENT: Denies rhinorrhea, congestion, sore throat, or otalgia. CARDIOVASCULAR: Denies chest pain, palpitations, or edema. RESPIRATORY: Denies cough or dyspnea. GASTROINTESTINAL: See HPI GENITOURINARY: Denies dysuria or hematuria. SKIN: Denies rash or itching. MUSCULOSKELETAL: Denies back pain, joint pain, or myalgia. NEUROLOGIC: Denies headache, numbness, dizziness, or weakness. PSYCHIATRIC: Denies anxiety or depression. [facility] Past Medical History Medical History Anxiety Cataract Fibromyalgia Leukemia Family History Family History Other Unknown family medical history Social History Social History Social History: Smoking packs per day: 0.4 Smoking cigarettes per day: 8.0 Years smoked: 10 Smoking pack-years: 4.00 Smoking status: Current every day smoker Tobacco type: cigarettes Alcohol intake: former Alcohol use details: denies recent alcohol use Substance use: current Substance use type: marijuana and painkillers Last use: 12/28/2021 Living arrangements: alone Gender identity (if verbalized by the patient): Female Spiritual care concerns: No Exam Narrative: GENERAL: Well-appearing, in no acute distress. HEAD: Normocephalic EYES: PERRLA ENT: Nares clear. Mucous membranes moist. Oropharynx without tonsillar hypertrophy exudate or other lesions. NECK: Supple. CHEST: No respiratory distress. Clear to auscultation, no adventitious breath sounds. HEART: Regular rate and rhythm. No murmur heard. Normal peripheral pulses. ABDOMEN: Soft, nontender, normal active bowel sounds. EXTREMITIES: Nor
--- NOTE | 2022-12-02 16:10 | PC.NURSE ---
Juany RN attempted IV access on pt and was unsuccessful. pt states that's it Im leaving this is taking too long Reassured pt that this RN can attempt. pt agreed and states just hurry up and shove it in there it shouldn't take this long. successfully started IV access in the R. wrist and began to draw labs. pt states what the hell are you doing? Educated pt. the the provider ordered a lab work due to symptoms she was experiencing. Pt screams at this RN and states Oh hell no! I just had labs done yesterday this is fucking ridiculous and a waste of my time! Take that IV out now, I'm leaving! All I wanted was IV fluids! This RN removed IV with catheter intact and placed gauze over site. bleeding controlled. GLADIS Holguin made aware of situation. pt standing in hallway with walker. GLADIS Holguin and this RN educating pt on the importance of staying in the ED to further investigate why pt is feeling this way. pt refusing and states she just wants IV fluids. GLADIS Holguin states she is willing to do that for pt. Pt states just forget it this is taking too damn long I'm leaving! pt signed AMA paperwork and made aware of benefits of staying in the ED and the risks of leaving. pt verbalized understanding and still wanting to leave. pt ambulated out of ED with walker without difficulty.
== END 2022-12-02 16:15 | disposition left against medical advice (07) ==
PROVIDERS: Emergency Provider Physician Assistant
DX: R11.2 Nausea with vomiting, unspecified (principal); M79.7 Fibromyalgia; F41.9 Anxiety disorder, unspecified; H26.9 Unspecified cataract; F17.210 Nicotine dependence, cigarettes, uncomplicated; Z85.6 Personal history of leukemia
CPT/HCPCS: 99281

== ENCOUNTER 2023-03-22 18:10 | Emergency (ER) | payer MEDICARE, MEDICAID, SELFPAY ==
--- NOTE | ~2023-03-22 | XR_ITS ---
EXAMINATION: XR chest 1V Exam Date/Time: 03/22/2023 18:30 CDT HISTORY: weakness Comparison: 12/29/2021. RESULT: Lines, tubes, and devices: None. Lungs and pleura: Senescent changes. Focal subsegmental airspace opacity in the left lower lung. Cardiomediastinal silhouette: Stable. Other: No acute osseous or upper abdominal finding. IMPRESSION: Focal subsegmental left lower lung airspace disease may represent atelectasis or pneumonia. Reviewed, dictated and finalized at location K. IMPRESSION: Focal subsegmental left lower lung airspace disease may represent atelectasis o r pneumonia.
--- NOTE | ~2023-03-22 | CT_ITS ---
EXAMINATION: CT brain wo con DATE: 03/22/2023 18:33 INDICATION: DIFF SPEAKING, DIZZINESS, HX OF TIA . TECHNIQUE: Computed tomography (CT) of the head was performed without intravenous contrast. The mA wa s adjusted according to patient size. Iterative reconstruction technique was employed. The dose-lengt h product was 605.33 mGy-cm. COMPARISON: None. FINDINGS: No acute intracranial hemorrhage or extra-axial fluid collection. No hydrocephalus, mass, or herniation. No acute ischemic infarct. Unremarkable dural venous sinus attenuation. No acute osseous abnormality. The aerated spaces are clear. Atherosclerotic intracranial calcification. Bilateral lens replacements. IMPRESSION: No acute intracranial process. Reviewed, dictated and finalized at location K.
[2023-03-22 18:15] VITALS: BP 135/66; PULSE 92; RESP 18; TEMP 36.9; O2SAT 96
== END 2023-03-22 22:34 | disposition left against medical advice (07) ==
LOC: ANHED 22:32
PROVIDERS: Emergency Provider General Practice
DX: R42 Dizziness and giddiness (principal); R53.1 Weakness; Z86.73 Personal history of transient ischemic attack (TIA), and cerebral infarction without residual deficits; Z53.21 Procedure and treatment not carried out due to patient leaving prior to being seen by health care provider
CPT/HCPCS: 70450; 71045; 99199

== ENCOUNTER 2023-11-15 12:44 | Inpatient (IN) | payer MEDICARE, MEDICAID, SELFPAY ==
[2023-11-15] VITALS (7 sets, daily range): BP systolic 109–135; BP diastolic 58–108; PULSE 74–96; RESP 16; TEMP 36.1–36.8; O2SAT 94–100; BMI 29.9
--- NOTE | ~2023-11-15 | US_ITS ---
US breast LT limited 11/15/2023 15:02 Indication: History of left breast cancer. Left breast pain and tenderness. Procedure: High-resolution Limited ultrasound of the left breast Comparison: No prior studies for comparison. Findings: The retroareolar tissue of the left breast is heterogeneous with interstitial edema and inc reased vascularity. No discrete drainable fluid collection is identified. No discrete mass. Impression: 1: Heterogeneous hypervascular subareolar soft tissue with interstitial edema, suspicious for phlegmo nous change. No discrete drainable abscess identified. Recommend correlation with diagnostic bilatera l mammogram. Recommend follow-up left breast ultrasound in 3 months following appropriate therapy if there is concern for infection. BI-RADS CATEGORY 0 - INCOMPLETE STUDY, NEED ADDITIONAL IMAGING EVALUATION. Reviewed, dictated and finalized at location A. Impression: 1: Heterogeneous hypervascular subareolar soft tissue with interstitial edema, suspicious for phlegmonous change. No discrete drainable abscess identified. Re commend correlation with diagnostic bilateral mammogram. Recommend follow-up le ft breast ultrasound in 3 months following appropriate therapy if there is conc amanda for infection. BI-RADS CATEGORY 0 - INCOMPLETE STUDY, NEED ADDITIONAL IMAGING EVALUATION.
--- NOTE | 2023-11-15 13:07 | ED.SKABFB ---
HPI - Skin/Abscess/Foreign Bdy General Chief complaint: Skin/Abscess/Foreign Body <Chelsie Fletcher PA-C - Last Filed: 11/15/23 16:53> Stated complaint: breast infection <Chelsie Fletcher PA-C - Last Filed: 11/15/23 16:53> Time Seen by Provider: 11/15/23 12:48 <Chelsie Fletcher PA-C - Last Filed: 11/15/23 16:53> History of Present Illness HPI narrative: 72-year-old female presents emergency department for redness and pain to her left breasts for 2 days. Patient states she went to urgent care yesterday was advised to come to the ED but did not present ill today because it was too late yesterday. She states she has been using some dark blood from her nipple. She endorses a history of breast cancer greater than 10 years ago and prior lumpectomy. States she did not have her undergo chemo or radiation for this. She also has a history of AML states she has been in remission for 6 years. Her oncologist are at [facility]. Denies fever, nausea or vomiting. States many years ago she also had a ?chocolate cyst? to her left breast and had to undergo a surgery to get removed, which presented with bloody nipple discharge at that time. She is not currently on any immunosuppressants. <Chelsie Fletcher PA-C - Last Filed: 11/15/23 16:53> Related Data Home medications: Home Medications Medication Instructions Recorded Confirmed albuterol sulfate 90 mcg/actuation 2 puff inhalation QID PRN 06/22/19 11/15/23 aerosol inhaler (ProAir HFA) Shortness of breath oxycodone-acetaminophen 10 mg-325 1 - 2 tablet PO Q4-6H PRN Pain, 06/22/19 11/15/23 mg tablet Moderate amitriptyline 75 mg tablet 75 mg PO HS 12/29/21 11/15/23 <Chelsie Fletcher PA-C - Last Filed: 11/15/23 16:53> Allergies/Adverse reactions: Allergies Allergy/AdvReac Type Severity Reaction Status Date / Time erythromycin base Allergy Unknown Hives Verified 03/22/23 18:12 tramadol Allergy Unknown Hives Verified 03/22/23 18:12 <Chelsie Fletcher PA-C - Last Filed: 11/15/23 16:53> Review of Systems Review of Systems: CONSTITUTIONAL: Denies fever, chills, or sweats. EYES: Denies visual changes, redness, or discharge. ENT: Denies rhinorrhea, congestion, sore throat, or otalgia. CARDIOVASCULAR: Denies chest pain, palpitations, or edema. RESPIRATORY: Denies cough or dyspnea. GASTROINTESTINAL: Denies abdominal pain, nausea, vomiting, or diarrhea. GENITOURINARY: Denies dysuria or hematuria. SKIN: See HPI MUSCULOSKELETAL: Denies back pain, joint pain, or myalgia. NEUROLOGIC: Denies headache, numbness, or weakness. PSYCHIATRIC: Denies anxiety or depression. <Chelsie Fletcher PA-C - Last Filed: 11/15/23 16:53> PMF Past Medical History Medical History: Medical History (Updated 11/15/23 @ 18:38 by Urszula Lam MD) Acute myeloid leukemia Anxiety Cancer of left breast Chronic obstructive pulmonary disease Chronic pain syndrome On long-term opioid therapy. Dyslipidemia Fibromyalgia Transient ischemic attack (2019) <Chelsie Fletcher PA-C - Last Filed: 11/15/23 16:53> Surgical History Surgical History: Surgical History (Updated 11/15/23 @ 17:07 by Linda Ren PA-C) History of cataract extraction History of cholecystectomy History of tonsillectomy <Chelsie Fletcher PA-C - Last Filed: 11/15/23 16:53> Family History Family History: Family History Other Unknown family medical history <Chelsie Fletcher PA-C - Last Filed: 11/15/23 16:53> Social History Social History: Social History Social History: Surrogate medical decision maker: Code status: Smoking packs per day: 0.4 Smoking cigarettes per day: 8.0 Years smoked: 10 Smoking pack-years: 4.00 Smoking status: Current every day smoker Alcohol intake: former Alcohol use details: denies recent alco
[2023-11-15 13:24] LABS: Basophils Absolute Auto 0.1 K/mm3 (0.0-0.1); Basophils Percent Auto 0.4 % (0.2-1.2); Eosinophils Absolute Auto 0.2 K/mm3 (0-0.3); Eosinophils Percent Auto 1.2 % (0-4.4); Hematocrit 44.9 % (37.0-47.0); Hemoglobin 14.7 g/dL (12.0-15.0); Immature Granulocyte Absolute 0.04 K/mm3 (0.00-0.031); Immature Granulocyte Percent A 0.3 % (0-0.5); Lymphocytes Absolute Auto 1.76 K/mm3 (0.9-3.2); Lymphocytes Percent Auto 12.2 % (18.3-44.2); Mean Corpuscular HGB Conc 32.7 g/dl (32-36); Mean Corpuscular Hemoglobin 30.2 pg (26-34); Mean Corpuscular Volume 92.2 fl (80-100); Mean Platelet Volume 9.8 fl (7.4-10.4); Monocytes Percent Auto 6.6 % (2.6-8.5); Neutrophils Absolute Auto 11.5 K/mm3 (1.3-6.7); Neutrophils Percent Auto 79.3 % (45.5-73.1); Platelet Count Result 195 k/mm3 (150-375); Red Blood Count 4.87 M/mm3 (4.2-5.4); Red Cell Distribution Width 14.3 % (11.5-14.5); White Blood Count 14.5 K/mm3 (4.5-10.0)
[2023-11-15 13:36] LABS: Alanine Aminotransferase 19 U/L (6-35); Albumin Level 4.4 g/dL (3.5-5.1); Alkaline Phosphatase 77 U/L (38-126); Anion Gap 6 mmol/L (4-12); Aspartate Amino Transferase 22 U/L (14-36); Bilirubin,Total 0.6 mg/dL (0.2-1.3); Blood Urea Nitrogen 14 mg/dL (7-17); Calcium 9.3 mg/dL (8.4-10.2); Carbon Dioxide 25 mmol/L (22-30); Chloride 102 mmol/L (98-107); Estimated CRCL calculation 44 ml/min; Estimated Glomerular Filt Rate 54; Glucose 133 mg/dL (65-110); Potassium 4.2 mmol/L (3.4-5.0); Sodium 133 mmol/L (137-145)
[2023-11-15] MEDS: MORPHINE SULFATE (*CRX) 2 MG/ML INJ IV PUSH ×4 (13:48→22:44)
[2023-11-15 14:44] LABS: Erythrocyte Sedimentation Rate 6 mm/hr (0-20)
[2023-11-15] MEDS: VANCOMYCIN 1,500 MG/NS 500 ML 1,500 MG/500 ML BAG 250 MG IVPB (16:43)
--- NOTE | 2023-11-15 16:54 | PM.IMHP ---
H&P: HPI History of Present Illness Date/Time: 11/15/23 16:54 Chief Complaint: Left breast pain and redness. Narrative: This is a 72-year-old female with history of left breast cancer status post lumpectomy, acute myeloid leukemia in remission for over 6 years, dyslipidemia, chronic obstructive pulmonary disease, and chronic pain syndrome on long-term opioid therapy was into the emergency department for evaluation of left breast pain and redness. The patient provides the following history. A couple of days ago she developed pain and swelling of the left breast with small amounts of dark red discharge coming from the nipple. Many years ago she had a cyst in her breast with similar nipple discharge at which time this is was reportedly excised. She denies fever, chills, sweats, nausea, and vomiting. There has been no trauma to the area. In the ED: She was afebrile on arrival with stable vital signs. Labs were significant for a WBC count of 14.5, sodium 133, glucose 133, CRP 5.0. Ultrasound of breath showed heterogeneous hypervascular subareolar soft tissue with interstitial edema suspicious for phlegmonous change though no discrete drainable abscess was noted. She was started on vancomycin is being admitted in this setting for further antibiotics and surgery consultation. Review of Systems Review of Systems: 12 systems were reviewed and are negative except for as per HPI. FORMERLY [facility] Past Medical History Medical History (Updated 11/15/23 @ 22:03 by Linda Ren PA-C) Acute myeloid leukemia Anxiety Cancer of left breast Status post lumpectomy. Chronic obstructive pulmonary disease Chronic pain syndrome On long-term opioid therapy. Dyslipidemia Fibromyalgia Transient ischemic attack (2019) Surgical History Surgical History History of cataract extraction History of cholecystectomy History of tonsillectomy Family History Family History Other Unknown family medical history Social History Social History (Updated 11/16/23 @ 00:06 by Linda Ren PA-C) Social History: Surrogate medical decision maker: Lisa Alvarado, friend. Code status: Full code. Smoking packs per day: 0.4 Smoking cigarettes per day: 8.0 Years smoked: 10 Smoking pack-years: 4.00 Smoking status: Current every day smoker Alcohol intake: former Alcohol use details: No recent alcohol use. Substance use: current Substance use type: marijuana and painkillers Do You Feel Safe in your Home?: Yes Lack of Transportation: No Lack of Food: Never True Current Housing: I Have Housing Concerned About Future Housing: No Difficulty Paying Gas/Electric Bills: No Difficulty Paying for Meds: No Currently Unemployed: No Education: Decline to Answer Difficulty w/ Childcare or Family Care: No Living arrangements: alone Additional living arrangements comments: . Lives in her own apartment in [place] with her Fijian lidya cat who is aptly named Lidya. Spiritual care concerns: No Meds Home Medications and Allergies Home Medications Medication Instructions Recorded Confirmed Type albuterol sulfate 90 mcg/actuation 2 puff inhalation QID PRN 06/22/19 11/15/23 History aerosol inhaler (ProAir HFA) Shortness of breath oxycodone-acetaminophen 10 mg-325 1 - 2 tablet PO Q4-6H PRN Pain, 06/22/19 11/15/23 History mg tablet Moderate amitriptyline 75 mg tablet 75 mg PO HS 12/29/21 11/15/23 History Allergies Allergy/AdvReac Type Severity Reaction Status Date / Time erythromycin base Allergy Unknown Hives Verified 03/22/23 18:12 tramadol Allergy Unknown Hives Verified 03/22/23 18:12 Vital Signs Vital Signs - 24 hr 11/15/23 13:07 11/15/23 13:06 11/15/23 13:47 Temperature 98.3 F 98.3 F Pulse Rate 80 78 80 Respiratory Rate 16 16 16 Blood Pressure 135/98 H 135/108 H 110/80 Pulse Ox
--- NOTE | 2023-11-15 18:23 | ADMGEN ---
This patient, Katey John, was admitted to [facility] Surg Room 328-01. Patient/family oriented to hospital policies and general routines including ID bracelet, bed and alarms, visiting hours, pain management, procedures, bathroom and other care routines, personal items, smoking policy, room service/diet, and visiting hours. Information on how to activate the Rapid Response Team has been discussed. Patient/Family are encouraged to report perceived risks to care and to ask questions if they do not understand what they are told or what they should do.
[2023-11-15] MEDS: SODIUM CHLORIDE 0.9% IV 1,000 ML 100 ML IV CONT (22:43)
[2023-11-15] MEDS: AMITRIPTYLINE HCL 25 MG TABLET 75 MG PO (22:44)
[2023-11-15] MEDS: HYDROmorphone HCL INJ (*CRX) 1 MG/ML SYR IV PUSH (23:44)
[2023-11-16] VITALS (15 sets, daily range): BP systolic 92–138; BP diastolic 44–81; PULSE 70–97; RESP 16–19; TEMP 35.8–37.1; O2SAT 88–100
[2023-11-16] MEDS: ONDANSETRON INJ 4 MG/2 ML VIAL IV PUSH ×3 (00:06→17:32)
[2023-11-16] MEDS: CALCIUM CARBONATE (TUMS) 500 MG (200 MG ELEMENTAL) PO (00:06)
[2023-11-16] MEDS: HYDROmorphone HCL INJ (*CRX) 1 MG/ML SYR IV PUSH ×8 (02:32→23:34)
[2023-11-16 06:27] LABS: Hematocrit 41.4 % (37.0-47.0); Hemoglobin 12.9 g/dL (12.0-15.0); Mean Corpuscular HGB Conc 31.2 g/dl (32-36); Mean Corpuscular Hemoglobin 29.9 pg (26-34); Mean Corpuscular Volume 95.8 fl (80-100); Mean Platelet Volume 9.8 fl (7.4-10.4); Platelet Count Result 170 k/mm3 (150-375); Red Blood Count 4.32 M/mm3 (4.2-5.4); Red Cell Distribution Width 14.3 % (11.5-14.5)
[2023-11-16 06:41] LABS: Anion Gap 2 mmol/L (4-12); Blood Urea Nitrogen 15 mg/dL (7-17); Calcium 8.6 mg/dL (8.4-10.2); Carbon Dioxide 28 mmol/L (22-30); Chloride 105 mmol/L (98-107); Estimated CRCL calculation 50 ml/min; Estimated Glomerular Filt Rate > 60; Glucose 105 mg/dL (65-110); Potassium 4.4 mmol/L (3.4-5.0); Sodium 135 mmol/L (137-145)
[2023-11-16 07:43] LABS: Glucose Point of Care 98 mg/dl (65-105)
--- NOTE | 2023-11-16 09:08 | PM.CNGS ---
Assessment and Plan Assessment and plan (1) Left breast abscess: Code(s): N61.1 - Abscess of the breast and nipple Status: Acute Assessment and Plan: US showed possible left breast phlegmon but no definitive abscess. Clinical suspicion for abscess and her exam appears consistent with a breast abscess. We would recommend continuing IV antibiotics and analgesics for pain control. Discussed the option of proceeding with incision and drainage of left breast abscess in the OR with sedation. Description of the procedure, risks, benefits, alternatives, and postop wound care were discussed with the patient in detail. She agrees with proceeding. Discussed the case with Dr. Bales, who will evaluate the patient separately and plan surgery accordingly. Given her reported history of left-sided breast cancer, she will eventually need further outpatient workup once this acute infection resolves, which we also discussed. (2) Chronic obstructive pulmonary disease: Code(s): J44.9 - Chronic obstructive pulmonary disease, unspecified Status: Acute (3) Chronic pain syndrome: Code(s): G89.4 - Chronic pain syndrome Status: Acute (4) Fibromyalgia: Code(s): M79.7 - Fibromyalgia Status: Chronic (5) Tobacco abuse: Code(s): Z72.0 - Tobacco use Status: Acute Assessment and Plan: Recommended cessation and discussed the impact smoking can have in relation to breast abscesses and healing. Plan I have discussed the patient's case and plan of care with Dr. Bales. Thank you for allowing us to see the patient in consultation and we will continue to follow along with you. History of Present Illness Consult details Consult date: 11/16/23 Reason for consult: other (Breast abscess) Requesting physician: Chelsie Fletcher PA-C Narrative: This is a 72-year-old woman with past medical history significant for tobacco abuse, left breast cancer status post lumpectomy, acute myeloid leukemia in remission for over 6 years, COPD, and chronic pain syndrome with fibromyalgia on long-term opioid therapy. We have been asked to see the patient in surgical consultation for a left breast abscess. Three days ago, she noticed some tenderness to her left breast. Later that evening, she noticed dark bloody nipple discharge discharge. She has not had any more nipple discharge, but her symptoms have continued to worsen over the next few days. She has developed more swelling, redness, and pain in the left breast. This ultimately brought her into the ER for evaluation. In the ED, she was afebrile with vital signs stable. [place] [id number]. Breast ultrasound showed heterogeneous hypervascular subareolar soft tissue with interstitial edema suspicious for phlegmonous change though no discrete drainable abscess was noted. She was admitted and started on IV antibiotics. She is now seen on the medical floor. She denies having any issues with the left breast since her left breast surgery in 2005. She has since had mammograms, but not in the past several years. Review of Systems Review of Systems: All systems reviewed & are unremarkable except as noted in HPI and below PMFSH Past Medical History Medical History (Updated 11/16/23 @ 10:01 by ANIA Castellanos) Acute myeloid leukemia Anxiety Cancer of left breast Status post lumpectomy. Chronic obstructive pulmonary disease Chronic pain syndrome On long-term opioid therapy. Dyslipidemia Fibromyalgia Tobacco abuse Transient ischemic attack (2020) Surgical History Surgical History History of cataract extraction History of cholecystectomy History of lumpectomy of left breast History of tonsillectomy Family History Family History Other Unknown family medical history Social History Social History (Reviewed 11/16/23
[2023-11-16] MEDS: HYDROcodone/acetaminophen (*CRX) 7.5-325 MG TABLET 1 TAB PO (10:09)
[2023-11-16] MEDS: LACTATED RINGERS 1,000 ML 30 ML IV CONT (12:00)
--- NOTE | 2023-11-16 12:08 | WPDHPUPDATE1 ---
History and Physical Update Update Date/Time: 11/16/23 12:08 History and Physical has been reviewed, including an updated exam of the patient. There are NO changes in the patient's condition. Risks, benefits, and alternatives have been discussed and questions answered. Patient agrees to proceed with procedure.
--- NOTE | 2023-11-16 12:26 | WPDANESEPPF ---
Anes - Initial Pre Proc Eval Procedure: Operation Date: 11/16/23 12:30 Proposed Procedures p Incision and Drainage Left Breast - Kevin Bales DO Date/Time: 11/16/23 12:26 Surgeon: Jessy Charles MD Pre Op Diagnosis: Breast Cellulitis Patient Data Age: 72 Gender: F Height: 1.63 m Weight: 81.4 kg Last Vital Signs Temp 36.1 C L 11/16/23 06:00 Pulse 97 11/16/23 08:00 Resp 16 11/16/23 08:00 BP 138/81 11/16/23 06:00 Pulse Ox 92 11/16/23 08:00 O2 Del Method Room Air 11/16/23 08:00 O2 Flow Rate 2 11/15/23 13:07 Allergies Allergy/AdvReac Type Severity Reaction Status Date / Time erythromycin base Allergy Unknown Hives Verified 03/22/23 18:12 tramadol Allergy Unknown Hives Verified 03/22/23 18:12 Home Medications Medication Instructions Recorded Confirmed Type albuterol sulfate 90 mcg/actuation 2 puff inhalation QID PRN 06/22/19 11/15/23 History aerosol inhaler (ProAir HFA) Shortness of breath oxycodone-acetaminophen 10 mg-325 1 - 2 tablet PO Q4-6H PRN Pain, 06/22/19 11/15/23 History mg tablet Moderate amitriptyline 75 mg tablet 75 mg PO HS 12/29/21 11/15/23 History Laboratory Tests 11/15/23 11/16/23 11/16/23 13:18 06:18 07:40 WBC 14.5 H K/mm3 14.0 H K/mm3 (4.5-10.0) (4.5-10.0) RBC 4.87 M/mm3 4.32 M/mm3 (4.2-5.4) (4.2-5.4) Hgb 14.7 g/dL 12.9 g/dL (12.0-15.0) (12.0-15.0) Hct 44.9 % 41.4 % (37.0-47.0) (37.0-47.0) MCV 92.2 fl 95.8 fl (80-100) (80-100) MCH 30.2 pg 29.9 pg (26-34) (26-34) MCHC 32.7 g/dl 31.2 L g/dl (32-36) (32-36) RDW 14.3 % 14.3 % (11.5-14.5) (11.5-14.5) Plt Count 195 k/mm3 170 k/mm3 (150-375) (150-375) MPV 9.8 fl 9.8 fl (7.4-10.4) (7.4-10.4) Immature Gran % (Auto) 0.3 % (0-0.5) Neut % (Auto) 79.3 H % (45.5-73.1) Lymph % (Auto) 12.2 L % (18.3-44.2) [place] % (Auto) 6.6 % (2.6-8.5) Eos % (Auto) 1.2 % (0-4.4) Baso % (Auto) 0.4 % (0.2-1.2) Lymph # (Auto) 1.76 K/mm3 (0.9-3.2) [place] # (Auto) 1.0 H K/mm3 (0.1-0.6) Eos # (Auto) 0.2 K/mm3 (0-0.3) Baso # (Auto) 0.1 K/mm3 (0.0-0.1) Abs Immat Gran (auto) 0.04 H K/mm3 (0.00-0.031) Absolute Neuts (auto) 11.5 H K/mm3 (1.3-6.7) Absolute Nucleated RBC 0.000 K/mm3 (0.0-0.012) Nucleated RBC % 0.0 % (0.0-0.2) ESR 6 mm/hr (0-20) Sodium 133 L mmol/L 135 L mmol/L (137-145) (137-145) Potassium 4.2 mmol/L 4.4 mmol/L (3.4-5.0) (3.4-5.0) Chloride 102 mmol/L 105 mmol/L (98-107) (98-107) Carbon Dioxide 25 mmol/L 28 mmol/L (22-30) (22-30) Anion Gap 6 mmol/L 2 L mmol/L (4-12) (4-12) BUN 14 mg/dL 15 mg/dL (7-17) (7-17) Creatinine 1.00 mg/dL 0.90 mg/dL (0.7-1.0) (0.7-1.0) Estim Creat Clear Calc 44 ml/min 50 ml/min Estimated GFR 54 L > 60 (59 - ) (59 - ) Glucose 133 H mg/dL 105 mg/dL (65-110) (65-110) POC Capillary Glucose 98 mg/dl (65-105) Calcium 9.3 mg/dL 8.6 mg/dL (8.4-10.2) (8.4-10.2) Magnesium 2.0 mg/dL (1.6-2.3) Total Bilirubin 0.6 mg/dL (0.2-1.3) AST 22 U/L (14-36) ALT 19 U/L (6-35) Alkaline Phosphatase 77 U/L (38-126) C-Reactive Protein 5.0 H mg/dL (<1.0) Total Protein 7.0 g/dL (6.3-8.2) Albumin 4.4 g/dL (3.5-5.1) Patient hx anesthesia problems: none Family hx anesthesia problems: none Results Review: All pre-operative results and documents have been reviewed as part of the pre-operative evaluation. FORMERLY [facility] Past Medical History Medical History (Updated 11/16/23 @ 12:27 by Juvencio Garces DO) Acute myeloid leukemia Anxiety Asthma Cancer of left breast Status post lumpectomy. Chronic obs
[2023-11-16] MEDS: BUPivacaine HCL 0.5% 10 ML AMP INFILTRATE (13:09)
--- NOTE | 2023-11-16 13:23 | P.OP_ITS ---
Procedure Note - Detailed Date of Procedure 11/16/23 Pre-op Diagnosis Left breast abscess Post-op Diagnosis Same Procedure Performed Incision and drainage of complex left breast abscess Surgeon Kevin Bales, DO Anesthesia General and Local ( 0.5% bupivacaine) Indications this is 72-year-old woman who presented to the emergency department with left breast swelling, redness, and tenderness. She was also having some occasional nipple discharge. She was found have severe inflammation of the left breast w ith induration and some purulence drainage from the nipple. An ultrasound showed phlegmonous changes but no discrete fluid collection. Discussions were made with the patient about treatment options and decision was made to proceed with incision and drainage of left breast abscess. Findings Incision and drainage of left breast abscess was performed. The patient had some purulence at discharge from her nipple and the lower outer quadrant of the left nipple. An inferior curvilinear incision was made at the edge of the nipple areola complex. There was some significant induration in the area deep to this but no large pockets of purulence fluid. I dissected under the nipple areola complex to the size of the areola region and also dissected deep into the breast tissue where more of the induration was. Loculations were broken up but again no significant purulence drainage was noted. The wound was then packed with half-inch iodoform gauze. Description of Procedure Procedure as well as risks, benefits, and alternatives were discussed with the patient. Written consent was obtained and placed in chart prior to procedure. Patient was brought back to surgical suite. She was placed supine on operating table. Time-out was done to confirm patient and procedure. She was then intu bated by the anesthesia department. Her left breast area was prepped and draped in sterile fashion using chlorhexidine prep. 0.5% bupivacaine was infiltrated locally around the nipple areola complex and the inferior region. A 3 cm curvilinear incision was then made at the edge of the nipple areola complex using a 15 blade scalpel. Electrocautery was used for hemostasis. I then bluntly dissected with a curved hemostat deeper into the breast tissue and within the subareolar region. I expressed the breast trying to release any further areas of fluctuance. I then finger dissected within this space to break up any further loculations. No other significant abnormalities were noted. The wound was then packed with half-inch iodoform gauze. 4 x 4 gauze, ABD pads, and Medipore tape were applied. The patient was then awakened from anesthesia, extubated, and transferred to recovery. Estimated Blood Loss 5 Packing Yes ( Half-inch iodoform gauze) Complications No immediate complications Condition Stable Disposition Floor [facility] Billing Surgery - Charge Forward: Surgery Billing
[2023-11-16] MEDS: LACTATED RINGERS 1,000 ML 100 ML IV CONT (14:44)
--- NOTE | 2023-11-16 15:30 | PM.IMPN ---
Progress Note: A&P Assessment and Plan (1) Infection of left breast: Code(s): N61.0 - Mastitis without abscess Status: Acute Assessment and Plan: Patient presents with left breast pain and redness. There is a small amount of dark red discharge charge coming from the nipple. Imaging showed possible phlegmon but no specific abscess. General surgery consulted and patient went for I and D earlier today was found to have complex left breast abscess. Vancomycin started. No blood cultures collected. No wound cultures. Continue IV antibiotics Monitor white count. (2) Hyponatremia: Code(s): E87.1 - Hypo-osmolality and hyponatremia Status: Acute Assessment and Plan: Sodium mildly low at 133. Better on repeat. Monitor (3) Chronic obstructive pulmonary disease: Code(s): J44.9 - Chronic obstructive pulmonary disease, unspecified Status: Acute Assessment and Plan: Stable. Few scattered rhonchi but no wheezing. She states use albuterol twice a day scheduled which will resume. (4) Chronic pain syndrome: Code(s): G89.4 - Chronic pain syndrome Status: Acute Assessment and Plan: Stable. Pain medications available as needed. Continue Elavil Plan DVT prophylax -Lovenox Code status -full Subjective Date/time seen: 11/16/23 15:30 Interval history: 72yo female with history of left breast cancer status post lumpectomy, AML in remission, COPD and chronic pain here for left breast pain and redness. Assuming care. Chart reviewed. Patient is back from surgery. She denies any left breast pain. She has a good appetite and is tolerating oral intake. No nausea or vomiting. No chest pain or shortness of breath. She does not wear oxygen at home Exam Narrative: AF 97.2 118/60 80 16 96% ra Gen - NARD Chest -scattered rhonchi. Left breast dressing is clean, dry and intact. CV - RRR S1/S2 Abd - Soft, NT/ND, Positive BS Ext - No pedal edema Psych - Nml mood and affect Skin - Warm and dry Objective Data Vital Signs Vital Signs: Vital Signs - 24 hr 11/15/23 15:53 11/15/23 16:31 11/15/23 17:00 Temperature 97.9 F 97.7 F 98.0 F Pulse Rate 78 80 74 Respiratory Rate 16 16 16 Blood Pressure 110/99 H 112/92 H 118/68 Pulse Oximetry 96 100 97 Oxygen Delivery Oxygen Flow Rate 11/15/23 18:42 11/15/23 21:05 11/16/23 06:00 Temperature 97 F L 97 F L Pulse Rate 96 97 Respiratory Rate 16 16 Blood Pressure 109/58 L 138/81 Pulse Oximetry 94 92 Oxygen Delivery Room Air Oxygen Flow Rate 11/16/23 08:00 11/16/23 13:06 11/16/23 13:20 Temperature 98.8 F Pulse Rate 97 70 73 Respiratory Rate 16 16 16 Blood Pressure 111/59 L 92/53 L Pulse Oximetry 92 100 100 Oxygen Delivery Room Air Simple Face Mask Simple Face Mask Oxygen Flow Rate 6 6 11/16/23 13:25 11/16/23 13:35 11/16/23 13:50 Temperature Pulse Rate 76 77 Respiratory Rate 18 16 Blood Pressure 114/57 L 115/52 L Pulse Oximetry 93 92 Oxygen Delivery Room Air Room Air Room Air Oxygen Flow Rate 11/16/23 14:07 11/16/23 14:22 11/16/23 14:52 Temperature 97.1 F L 97.2 F L 97.2 F L Pulse Rate 82 76 80 Respiratory Rate 16 16 16 Blood Pressure 101/44 L 103/49 L 118/61 Pulse Oximetry 88 L 99 96 Oxygen Delivery Oxygen Flow Rate Intake/Output Intake/Output: Intake & Output 11/13/23 11/14/23 11/15/23 11/16/23 23:59 23:59 23:59 23:59 Intake Total 620 1233 Balance 620 1233 Meds/Results Medications: Active Medications Generic Name Dose Route Start Last Admin Trade Name Freq PRN Reason Stop Dose Admin Acetaminophen 650 mg 11/15/23 22:07 Acetaminophen 325 Mg Tablet PO Q6H PRN Mild Pain (1-3) or Fever Albuterol 2 puff 11/15/23 22:08 Albuterol Sulfate (*Sp) Aerosol 1 Puff INHALATION QID PRN Shortness of breath Amitriptyline HCl 75 mg 11/15/23 22:15 11/15/23 22:44 Amitriptyline Hcl
[2023-11-16] MEDS: VANCOMYCIN 1,500 MG/NS 500 ML 1,500 MG/500 ML BAG 250 MG IVPB (16:48)
[2023-11-16] MEDS: oxyCODONE/ACETAMINOPHEN (*CRX) 10-325 MG TABLET 1 TAB PO ×2 (16:50→22:35)
[2023-11-16] MEDS: ALBUTEROL SULFATE (*SP) AEROSOL 1 PUFF 2 PUFF INHALATION (20:23)
[2023-11-16] MEDS: AMITRIPTYLINE HCL 25 MG TABLET 75 MG PO (20:49)
[2023-11-17] VITALS (8 sets, daily range): BP systolic 105–128; BP diastolic 51–65; PULSE 78–86; RESP 16–18; TEMP 35.7–36.7; O2SAT 91–98
[2023-11-17 06:14] LABS: Hematocrit 38.4 % (37.0-47.0); Hemoglobin 12.1 g/dL (12.0-15.0); Mean Corpuscular HGB Conc 31.5 g/dl (32-36); Mean Corpuscular Hemoglobin 30.5 pg (26-34); Mean Corpuscular Volume 96.7 fl (80-100); Mean Platelet Volume 10.2 fl (7.4-10.4); Platelet Count Result 168 k/mm3 (150-375); Red Blood Count 3.97 M/mm3 (4.2-5.4); White Blood Count 16.4 K/mm3 (4.5-10.0)
[2023-11-17 06:29] LABS: Anion Gap 3 mmol/L (4-12); Blood Urea Nitrogen 21 mg/dL (7-17); Calcium 8.4 mg/dL (8.4-10.2); Carbon Dioxide 30 mmol/L (22-30); Chloride 104 mmol/L (98-107); Estimated CRCL calculation 45 ml/min; Estimated Glomerular Filt Rate 54; Glucose 122 mg/dL (65-110); Potassium 4.3 mmol/L (3.4-5.0); Sodium 137 mmol/L (137-145)
[2023-11-17] MEDS: ENOXAPARIN 40 MG/0.4 ML SYRINGE SUB-Q (07:36)
[2023-11-17] MEDS: oxyCODONE/ACETAMINOPHEN (*CRX) 10-325 MG TABLET 1 TAB PO (07:36)
[2023-11-17] MEDS: ALBUTEROL SULFATE (*SP) AEROSOL 1 PUFF 2 PUFF INHALATION ×2 (08:36→20:11)
[2023-11-17] MEDS: HYDROmorphone HCL INJ (*CRX) 1 MG/ML SYR IV PUSH ×2 (12:00→19:42)
--- NOTE | 2023-11-17 12:03 | PM.PNGS ---
Progress Note: A&P Assessment and Plan (1) Left breast abscess: Code(s): N61.1 - Abscess of the breast and nipple Status: Acute Assessment and Plan: Continue IV antibiotics. Continue packing changes. Will reassess wound tomorrow. Possibly home tomorrow if continuing to improve. (2) Tobacco abuse: Code(s): Z72.0 - Tobacco use Status: Acute (3) Chronic obstructive pulmonary disease: Code(s): J44.9 - Chronic obstructive pulmonary disease, unspecified Status: Acute Subjective Subjective Date/Time Seen: 11/17/23 12:03 Interval history: Doing well on POD#1. No fevers. Pain controlled. Exam Chest: Other: Left breast abscess incision healing well. Minimal bloody drainage. Erythema and induration already improved. Objective Data Vital Signs Vital Signs: Vital Signs - 24 hr 11/16/23 13:06 11/16/23 13:20 11/16/23 13:25 Temperature 37.1 C Pulse Rate 70 73 Respiratory Rate 16 16 Blood Pressure 111/59 L 92/53 L Pulse Oximetry 100 100 Oxygen Delivery Simple Face Mask Simple Face Mask Room Air Oxygen Flow Rate 6 6 11/16/23 13:35 11/16/23 13:50 11/16/23 14:07 Temperature 36.2 C L Pulse Rate 76 77 82 Respiratory Rate 18 16 16 Blood Pressure 114/57 L 115/52 L 101/44 L Pulse Oximetry 93 92 88 L Oxygen Delivery Room Air Room Air Oxygen Flow Rate 11/16/23 14:22 11/16/23 14:52 11/16/23 15:52 Temperature 36.2 C L 36.2 C L 36.1 C L Pulse Rate 76 80 95 Respiratory Rate 16 16 18 Blood Pressure 103/49 L 118/61 117/74 Pulse Oximetry 99 96 91 Oxygen Delivery Oxygen Flow Rate 11/16/23 20:34 11/16/23 20:38 11/16/23 19:37 Temperature 35.8 C L Pulse Rate 75 89 Respiratory Rate 19 16 Blood Pressure 118/53 L Pulse Oximetry 91 91 Oxygen Delivery Room Air Oxygen Flow Rate 11/16/23 20:00 11/16/23 23:37 11/17/23 03:37 Temperature 36.3 C L 36.4 C Pulse Rate 75 82 79 Respiratory Rate 19 18 18 Blood Pressure 101/51 L 105/52 L Pulse Oximetry 91 93 91 Oxygen Delivery Room Air Oxygen Flow Rate 11/17/23 07:37 11/17/23 08:36 11/17/23 08:00 Temperature 36.7 C Pulse Rate 86 84 84 Respiratory Rate 18 18 18 Blood Pressure 128/58 L Pulse Oximetry 94 94 Oxygen Delivery Room Air Oxygen Flow Rate Intake/Output Intake/Output: Intake & Output 11/14/23 11/15/23 11/16/23 11/17/23 23:59 23:59 23:59 23:59 Intake Total 878 4713 1979 Balance 620 1542 1979 Meds/Results Medications: Active Medications Generic Name Dose Route Start Last Admin Trade Name Freq PRN Reason Stop Dose Admin Acetaminophen 650 mg 11/15/23 22:07 Acetaminophen 325 Mg Tablet PO Q6H PRN Mild Pain (1-3) or Fever Albuterol 2 puff 11/15/23 22:08 Albuterol Sulfate (*Sp) Aerosol 1 Puff INHALATION QID PRN Shortness of breath Albuterol 2 puff 11/16/23 20:00 11/17/23 08:36 Albuterol Sulfate (*Sp) Aerosol 1 Puff INHALATION 2 puff Q12HRT YOGI Administration Amitriptyline HCl 75 mg 11/15/23 22:15 11/16/23 20:49 Amitriptyline Hcl 25 Mg Tablet PO 75 mg HS YOGI Administration Calcium Carbonate 200 mg 11/15/23 23:54 11/16/23 00:06 Calcium Carbonate (Tums) 500 Mg (200 Mg Elemental) PO 200 mg Q6H PRN Administration Indigestion Enoxaparin Sodium 40 mg 11/17/23 09:00 11/17/23 07:36 Enoxaparin 40 Mg/0.4 Ml Syringe SUB-Q 40 mg DAILY YOGI Administration Hydromorphone HCl 1 mg 11/16/23 13:52 11/16/23 23:34 Hydromorphone Hcl Inj (*Crx) 1 Mg/Ml Syr IV PUSH 1 mg Q2H PRN Administration Breakthrough Pain Rated 7-10 or NPO Hydromorphone HCl 0.5 mg 11/16/23 13:52 Hydromorphone Hcl Inj (*Crx) 1 Mg/Ml Syr IV PUSH Q2H PRN Breakthrough Pain Rated 4-6 or NPO Vancomycin HCl 1,500 mg in 500 mls @ 250 mls/hr 11/15/23 17:00 11/16/23 18:50 Vancomycin 1,500 Mg/Ns 500 Ml IVPB Infused Q24H YOGI Infusion Ibuprofen 800 mg in 200 mls @ 400 mls/hr
[2023-11-17] MEDS: oxyCODONE/ACETAMINOPHEN (*CRX) 10-325 MG TABLET 1.5 TAB PO ×2 (13:30→17:09)
--- NOTE | 2023-11-17 14:07 | PM.IMPN ---
Progress Note: A&P Assessment and Plan (1) Left breast abscess: Code(s): N61.1 - Abscess of the breast and nipple Status: Acute Assessment and Plan: Patient presents with left breast pain and redness. There was a small amount of dark red discharge charge coming from the nipple. Imaging showed possible phlegmon but no specific abscess. General surgery consulted and patient went for I&D 11/15 was found to have complex left breast abscess. Vancomycin started. No blood cultures collected. No wound cultures. WBC higher today felt related to surgery. Continue IV antibiotics Monitor white count. (2) Hyponatremia: Code(s): E87.1 - Hypo-osmolality and hyponatremia Status: Acute Assessment and Plan: Sodium mildly low at 133. Normal on repeat Monitor (3) Chronic obstructive pulmonary disease: Code(s): J44.9 - Chronic obstructive pulmonary disease, unspecified Status: Acute Assessment and Plan: Stable. Few scattered rhonchi but no wheezing. She states use albuterol twice a day scheduled which was resumed (4) Chronic pain syndrome: Code(s): G89.4 - Chronic pain syndrome Status: Acute Assessment and Plan: Stable. Pain medications available as needed. Continue Elavil Plan DVT prophylax -Lovenox Code status -full Subjective Date/time seen: 11/17/23 14:07 Interval history: 72yo female with history of left breast cancer status post lumpectomy, AML in remission, COPD and chronic pain here for left breast pain and redness. Increased pain last night but better today. Increased swelling to the left breast and still feels firm. She was confused last night and wandered into an empty room. Exam Narrative: AF 96.2 116/61 86 18 98% ra Gen - NARD Chest -scattered rhonchi. Left breast dressing is clean, dry and intact. Left breast mildly edematous and firm centrally CV - RRR S1/S2 Abd - Soft, NT/ND, Positive BS Ext - No pedal edema Neuro - AOx4. Psych - Nml mood and affect Skin - Warm and dry Objective Data Vital Signs Vital Signs: Vital Signs - 24 hr 11/16/23 14:22 11/16/23 14:52 11/16/23 15:52 Temperature 97.2 F L 97.2 F L 97.0 F L Pulse Rate 76 80 95 Respiratory Rate 16 16 18 Blood Pressure 103/49 L 118/61 117/74 Pulse Oximetry 99 96 91 Oxygen Delivery 11/16/23 20:34 11/16/23 20:38 11/16/23 19:37 Temperature 96.5 F L Pulse Rate 75 89 Respiratory Rate 19 16 Blood Pressure 118/53 L Pulse Oximetry 91 91 Oxygen Delivery Room Air 11/16/23 20:00 11/16/23 23:37 11/17/23 03:37 Temperature 97.4 F L 97.6 F Pulse Rate 75 82 79 Respiratory Rate 19 18 18 Blood Pressure 101/51 L 105/52 L Pulse Oximetry 91 93 91 Oxygen Delivery Room Air 11/17/23 07:37 11/17/23 08:36 11/17/23 08:00 Temperature 98.0 F Pulse Rate 86 84 84 Respiratory Rate 18 18 18 Blood Pressure 128/58 L Pulse Oximetry 94 94 Oxygen Delivery Room Air 11/17/23 11:37 Temperature 96.2 F L Pulse Rate 86 Respiratory Rate 18 Blood Pressure 116/61 Pulse Oximetry 98 Oxygen Delivery Intake/Output Intake/Output: Intake & Output 11/14/23 11/15/23 11/16/23 11/17/23 23:59 23:59 23:59 23:59 Intake Total 620 2523 2220 Balance 620 2523 2220 Meds/Results Medications: Active Medications Generic Name Dose Route Start Last Admin Trade Name Freq PRN Reason Stop Dose Admin Acetaminophen 650 mg 11/15/23 22:07 Acetaminophen 325 Mg Tablet PO Q6H PRN Mild Pain (1-3) or Fever Albuterol 2 puff 11/15/23 22:08 Albuterol Sulfate (*Sp) Aerosol 1 Puff INHALATION QID PRN Shortness of breath Albuterol 2 puff 11/16/23 20:00 11/17/23 08:36 Albuterol Sulfate (*Sp) Aerosol 1 Puff INHALATION 2 puff Q12HRT YOGI Administration Amitriptyline HCl 75 mg 11/15/23 22:15 11/16/23 20:49 Amitriptyline Hcl 25 Mg Tablet PO 75 mg HS YOGI Administration Calcium Carbonate 200 mg
[2023-11-17] MEDS: VANCOMYCIN 1,500 MG/NS 500 ML 1,500 MG/500 ML BAG 250 MG IVPB (17:09)
[2023-11-17] MEDS: AMITRIPTYLINE HCL 25 MG TABLET 75 MG PO (20:45)
[2023-11-17] MEDS: CALCIUM CARBONATE (TUMS) 500 MG (200 MG ELEMENTAL) PO (22:01)
[2023-11-18] MEDS: HYDROmorphone HCL INJ (*CRX) 1 MG/ML SYR IV PUSH ×2 (01:10→16:50)
[2023-11-18 06:00] VITALS: BP 129/53; PULSE 100; RESP 18; TEMP 35.9; O2SAT 96
[2023-11-18] MEDS: oxyCODONE/ACETAMINOPHEN (*CRX) 10-325 MG TABLET 1 TAB PO ×2 (06:08→20:33)
[2023-11-18 06:14] LABS: Basophils Absolute Auto 0.1 K/mm3 (0.0-0.1); Basophils Percent Auto 0.6 % (0.2-1.2); Eosinophils Absolute Auto 0.4 K/mm3 (0-0.3); Eosinophils Percent Auto 2.8 % (0-4.4); Hematocrit 38.4 % (37.0-47.0); Immature Granulocyte Absolute 0.06 K/mm3 (0.00-0.031); Immature Granulocyte Percent A 0.5 % (0-0.5); Lymphocytes Absolute Auto 3.15 K/mm3 (0.9-3.2); Lymphocytes Percent Auto 24.9 % (18.3-44.2); Mean Corpuscular HGB Conc 31.3 g/dl (32-36); Mean Corpuscular Hemoglobin 30.2 pg (26-34); Mean Corpuscular Volume 96.5 fl (80-100); Mean Platelet Volume 10.5 fl (7.4-10.4); Monocytes Absolute Auto 0.8 K/mm3 (0.1-0.6); Monocytes Percent Auto 6.2 % (2.6-8.5); Neutrophils Absolute Auto 8.2 K/mm3 (1.3-6.7); Platelet Count Result 188 k/mm3 (150-375); Red Blood Count 3.98 M/mm3 (4.2-5.4); Red Cell Distribution Width 14.2 % (11.5-14.5); White Blood Count 12.6 K/mm3 (4.5-10.0)
[2023-11-18 06:20] LABS: Estimated CRCL calculation 50 ml/min; Estimated Glomerular Filt Rate > 60
[2023-11-18] MEDS: ALBUTEROL SULFATE (*SP) AEROSOL 1 PUFF 2 PUFF INHALATION ×2 (08:17→20:56)
[2023-11-18 08:18] VITALS: PULSE 85; RESP 20; O2SAT 92
--- NOTE | 2023-11-18 12:22 | PM.PNGS ---
Progress Note: A&P Assessment and Plan (1) Left breast abscess: Code(s): N61.1 - Abscess of the breast and nipple Status: Acute Assessment and Plan: Patient still having pain control issues and not sure she can tolerate going home today. Surgically stable for discharge. Will have to perform daily packing changes at home. Recommend 7-10 more days or oral antibiotics. Follow up in office in 2 weeks. (2) Tobacco abuse: Code(s): Z72.0 - Tobacco use Status: Acute (3) Chronic obstructive pulmonary disease: Code(s): J44.9 - Chronic obstructive pulmonary disease, unspecified Status: Acute Subjective Subjective Date/Time Seen: 11/18/23 12:22 Interval history: Patient still having a lot of pain, especially with dressing changes. No fevers. Exam Chest: Other: No purulent drainage. Erythema nearly resolved. Residual induration but slowly improving. Objective Data Vital Signs Vital Signs: Vital Signs - 24 hr 11/17/23 15:37 11/17/23 20:12 11/17/23 20:00 Temperature 36.2 C L 36.7 C Pulse Rate 78 79 78 Respiratory Rate 16 18 16 Blood Pressure 120/51 L 119/65 Pulse Oximetry 95 93 Oxygen Delivery 11/17/23 20:45 11/18/23 06:00 11/18/23 08:18 Temperature 35.9 C L Pulse Rate 100 Respiratory Rate 18 Blood Pressure 129/53 L Pulse Oximetry 96 92 Oxygen Delivery Room Air Room Air 11/18/23 08:18 Temperature Pulse Rate 85 Respiratory Rate 20 Blood Pressure Pulse Oximetry Oxygen Delivery Intake/Output Intake/Output: Intake & Output 11/15/23 11/16/23 11/17/23 11/18/23 23:59 23:59 23:59 23:59 Intake Total 025 5963 2580 680 Balance 243 1252 2585 680 Meds/Results Medications: Active Medications Generic Name Dose Route Start Last Admin Trade Name Freq PRN Reason Stop Dose Admin Acetaminophen 650 mg 11/15/23 22:07 Acetaminophen 325 Mg Tablet PO Q6H PRN Mild Pain (1-3) or Fever Albuterol 2 puff 11/15/23 22:08 Albuterol Sulfate (*Sp) Aerosol 1 Puff INHALATION QID PRN Shortness of breath Albuterol 2 puff 11/16/23 20:00 11/18/23 08:17 Albuterol Sulfate (*Sp) Aerosol 1 Puff INHALATION 2 puff Q12HRT YOGI Administration Amitriptyline HCl 75 mg 11/15/23 22:15 11/17/23 20:45 Amitriptyline Hcl 25 Mg Tablet PO 75 mg HS YOGI Administration Calcium Carbonate 200 mg 11/15/23 23:54 11/17/23 22:01 Calcium Carbonate (Tums) 500 Mg (200 Mg Elemental) PO 200 mg Q6H PRN Administration Indigestion Doxycycline Hyclate 100 mg 11/18/23 12:00 Doxycycline Hyclate 100 Mg Tablet PO Q12HR YOGI Enoxaparin Sodium 40 mg 11/17/23 09:00 11/17/23 07:36 Enoxaparin 40 Mg/0.4 Ml Syringe SUB-Q 40 mg DAILY YOGI Administration Hydromorphone HCl 1 mg 11/16/23 13:52 11/18/23 01:10 Hydromorphone Hcl Inj (*Crx) 1 Mg/Ml Syr IV PUSH 1 mg Q2H PRN Administration Breakthrough Pain Rated 7-10 or NPO Hydromorphone HCl 0.5 mg 11/16/23 13:52 Hydromorphone Hcl Inj (*Crx) 1 Mg/Ml Syr IV PUSH Q2H PRN Breakthrough Pain Rated 4-6 or NPO Ibuprofen 800 mg in 200 mls @ 400 mls/hr 11/16/23 13:52 Caldolor 800 Mg/200 Ml IVPB Q6H PRN Breakthrough Pain Rated 1-3 or NPO Naloxone HCl 0.1 mg 11/16/23 13:52 Naloxone Hcl 0.4 Mg/Ml Vial IV PUSH Q2M PRN Opiate Reversal Ondansetron HCl 4 mg 11/15/23 16:53 11/16/23 17:32 Ondansetron Inj 4 Mg/2 Ml Vial IV PUSH 4 mg Q4H PRN Administration Nausea Oxycodone/Acetaminophen 1 tab 11/16/23 13:52 11/18/23 06:08 Oxycodone/Acetaminophen (*Crx) 10-325 Mg Tablet PO 1 tab Q6H PRN Administration Pain Rated 4-6 Oxycodone/Acetaminophen 1.5 tab 11/16/23 13:52 11/17/23 17:09 Oxycodone/Acetaminophen (*Crx) 10-325 Mg Tablet PO 1.5 tab Q4H PRN Administration Pain Rated 7-10 Radiology Results: ITS Impressions Breast Ultrasound 11/15/23 15:10 Impression:
[2023-11-18] MEDS: DOXYCYCLINE HYCLATE 100 MG TABLET PO ×2 (12:47→20:34)
[2023-11-18] MEDS: oxyCODONE/ACETAMINOPHEN (*CRX) 10-325 MG TABLET 1.5 TAB PO (12:52)
[2023-11-18] MEDS: IBUPROFEN IV 800 MG/200 ML 800 MG/200 ML BAG 400 MG IVPB (15:03)
[2023-11-18] MEDS: DOCUSATE SODIUM 100 MG CAPSULE PO ×2 (15:04→20:34)
--- NOTE | 2023-11-18 15:23 | PM.IMPN ---
Progress Note: A&P Assessment and Plan (1) Left breast abscess: Code(s): N61.1 - Abscess of the breast and nipple Status: Acute Assessment and Plan: Patient presents with left breast pain and redness. There was a small amount of dark red discharge charge coming from the nipple. Imaging showed possible phlegmon but no specific abscess. General surgery consulted and patient went for I&D 11/15 was found to have complex left breast abscess. Vancomycin started. No blood cultures collected. No wound cultures. WBC better today. Per surgery: patietn still having pain issues and does not feel she could go home today Continue antibiotics Monitor white count. (2) Hyponatremia: Code(s): E87.1 - Hypo-osmolality and hyponatremia Status: Acute Assessment and Plan: Sodium mildly low at 133. Normal on repeat Monitor (3) Chronic obstructive pulmonary disease: Code(s): J44.9 - Chronic obstructive pulmonary disease, unspecified Status: Acute Assessment and Plan: Stable. Few scattered rhonchi but no wheezing. She states use albuterol twice a day scheduled which was resumed (4) Chronic pain syndrome: Code(s): G89.4 - Chronic pain syndrome Status: Acute Assessment and Plan: Stable. Pain medications available as needed. Continue Elavil Plan DVT prophylax -Lovenox Code status -full Subjective Date/time seen: 11/18/23 15:23 Interval history: 72yo female with history of left breast cancer status post lumpectomy, AML in remission, COPD and chronic pain here for left breast pain and redness. Eating well. Slept well. No change in the breast edema. Pain persistent but tolerable.No flatus or BMs Exam Narrative: AF 96.7 129/53 85 20 92% ra Gen - NARD Chest -scattered rhonchi. Left breast dressing is clean, dry and intact. CV - RRR S1/S2 Abd - Soft, NT/ND, Positive BS Ext - No pedal edema Psych - Nml mood and affect Skin - Warm and dry Objective Data Vital Signs Vital Signs: Vital Signs - 24 hr 11/17/23 15:37 11/17/23 20:12 11/17/23 20:00 Temperature 97.2 F L 98.1 F Pulse Rate 78 79 78 Respiratory Rate 16 18 16 Blood Pressure 120/51 L 119/65 Pulse Oximetry 95 93 Oxygen Delivery 11/17/23 20:45 11/18/23 06:00 11/18/23 08:18 Temperature 96.7 F L Pulse Rate 100 Respiratory Rate 18 Blood Pressure 129/53 L Pulse Oximetry 96 92 Oxygen Delivery Room Air Room Air 11/18/23 08:18 Temperature Pulse Rate 85 Respiratory Rate 20 Blood Pressure Pulse Oximetry Oxygen Delivery Intake/Output Intake/Output: Intake & Output 11/15/23 11/16/23 11/17/23 11/18/23 23:59 23:59 23:59 23:59 Intake Total 620 0493 2580 680 Balance 620 0653 2580 680 Meds/Results Medications: Active Medications Generic Name Dose Route Start Last Admin Trade Name Freq PRN Reason Stop Dose Admin Acetaminophen 650 mg 11/15/23 22:07 Acetaminophen 325 Mg Tablet PO Q6H PRN Mild Pain (1-3) or Fever Albuterol 2 puff 11/15/23 22:08 Albuterol Sulfate (*Sp) Aerosol 1 Puff INHALATION QID PRN Shortness of breath Albuterol 2 puff 11/16/23 20:00 11/18/23 08:17 Albuterol Sulfate (*Sp) Aerosol 1 Puff INHALATION 2 puff Q12HRT YOGI Administration Amitriptyline HCl 75 mg 11/15/23 22:15 11/17/23 20:45 Amitriptyline Hcl 25 Mg Tablet PO 75 mg HS YOGI Administration Calcium Carbonate 200 mg 11/15/23 23:54 11/17/23 22:01 Calcium Carbonate (Tums) 500 Mg (200 Mg Elemental) PO 200 mg Q6H PRN Administration Indigestion Docusate Sodium 100 mg 11/18/23 13:05 11/18/23 15:04 Docusate Sodium 100 Mg Capsule PO 100 mg Q12HR YOGI Administration Doxycycline Hyclate 100 mg 11/18/23 12:00 11/18/23 12:47 Doxycycline Hyclate 100 Mg Tablet PO 100 mg Q12HR YOGI Administration Enoxaparin Sodium 40 mg 11/17/23 09:00 11/18/23 12:52 Enoxaparin 40 Mg/0.4 Ml S
[2023-11-18] MEDS: AMITRIPTYLINE HCL 25 MG TABLET 75 MG PO (20:34)
[2023-11-18 20:56] VITALS: PULSE 86; RESP 20
[2023-11-18 21:40] VITALS: BP 144/72; PULSE 83; RESP 14; TEMP 36.4; O2SAT 94
[2023-11-19] MEDS: HYDROmorphone HCL INJ (*CRX) 1 MG/ML SYR IV PUSH ×3 (00:21→15:40)
[2023-11-19] MEDS: oxyCODONE/ACETAMINOPHEN (*CRX) 10-325 MG TABLET 1.5 TAB PO ×3 (03:47→19:58)
[2023-11-19 05:27] VITALS: BP 122/47; PULSE 75; RESP 12; TEMP 36.4; O2SAT 93
[2023-11-19] MEDS: ALBUTEROL SULFATE (*SP) AEROSOL 1 PUFF 2 PUFF INHALATION ×2 (08:56→20:41)
[2023-11-19 08:57] VITALS: O2SAT 95
[2023-11-19] MEDS: ENOXAPARIN 40 MG/0.4 ML SYRINGE SUB-Q (09:24)
[2023-11-19] MEDS: DOXYCYCLINE HYCLATE 100 MG TABLET PO ×2 (09:24→19:59)
[2023-11-19 15:29] VITALS: BP 158/74; PULSE 77; RESP 13; TEMP 36.1; O2SAT 98
--- NOTE | 2023-11-19 15:34 | PM.IMPN ---
Progress Note: A&P Assessment and Plan (1) Left breast abscess: Code(s): N61.1 - Abscess of the breast and nipple Status: Acute Assessment and Plan: Patient presents with left breast pain and redness. There was a small amount of dark red discharge from the nipple. Imaging showed possible phlegmon but no specific abscess. General surgery consulted and patient went for I&D 11/15 was found to have complex left breast abscess. Vancomycin started. No blood cultures collected. No wound cultures. WBC better. Patient does not feel she can do the dressing changes Vanco changed to Doxycycline. Continue antibiotics. Adjust pain medications. Home healthy to help with dressing changes (2) Hyponatremia: Code(s): E87.1 - Hypo-osmolality and hyponatremia Status: Acute Assessment and Plan: Sodium mildly low at 133. Normal on repeat Monitor periodically (3) Chronic obstructive pulmonary disease: Code(s): J44.9 - Chronic obstructive pulmonary disease, unspecified Status: Acute Assessment and Plan: Stable. Few scattered rhonchi but no wheezing. She states use albuterol twice a day scheduled which was resumed (4) Chronic pain syndrome: Code(s): G89.4 - Chronic pain syndrome Status: Acute Assessment and Plan: Stable. Pain medications available as needed. Continue Elavil Plan DVT prophylax -Lovenox Code status -full Subjective Date/time seen: 11/19/23 15:34 Interval history: 72yo female with history of left breast cancer status post lumpectomy, AML in remission, COPD and chronic pain here for left breast pain and redness. Slept well. She feels she can not do the dressing changes at home by herself. Pain increased with dressing changes. Exam Narrative: AF 97.0 158/74 77 13 98% ra Gen - NARD Chest -scattered rhonchi. Left breast dressing is clean, dry and intact. CV - RRR S1/S2 Abd - Soft, NT/ND, Positive BS Ext - No pedal edema Psych - Nml mood and affect Skin - Warm and dry Objective Data Vital Signs Vital Signs: Vital Signs - 24 hr 11/18/23 20:56 11/18/23 21:40 11/18/23 20:00 Temperature 97.6 F Pulse Rate 86 83 Respiratory Rate 20 14 Blood Pressure 144/72 H Pulse Oximetry 94 Oxygen Delivery Room Air 11/19/23 05:27 11/19/23 08:57 11/19/23 15:29 Temperature 97.5 F L 97 F L Pulse Rate 75 77 Respiratory Rate 12 13 Blood Pressure 122/47 L 158/74 H Pulse Oximetry 93 95 98 Oxygen Delivery Room Air Intake/Output Intake/Output: Intake & Output 11/16/23 11/17/23 11/18/23 11/19/23 23:59 23:59 23:59 23:59 Intake Total 2523 2580 2330 1640 Balance 2523 2580 2330 1640 Meds/Results Medications: Active Medications Generic Name Dose Route Start Last Admin Trade Name Freq PRN Reason Stop Dose Admin Acetaminophen 650 mg 11/15/23 22:07 Acetaminophen 325 Mg Tablet PO Q6H PRN Mild Pain (1-3) or Fever Albuterol 2 puff 11/15/23 22:08 Albuterol Sulfate (*Sp) Aerosol 1 Puff INHALATION QID PRN Shortness of breath Albuterol 2 puff 11/16/23 20:00 11/19/23 08:56 Albuterol Sulfate (*Sp) Aerosol 1 Puff INHALATION 2 puff Q12HRT YOGI Administration Amitriptyline HCl 75 mg 11/15/23 22:15 11/18/23 20:34 Amitriptyline Hcl 25 Mg Tablet PO 75 mg HS YOGI Administration Calcium Carbonate 200 mg 11/15/23 23:54 11/17/23 22:01 Calcium Carbonate (Tums) 500 Mg (200 Mg Elemental) PO 200 mg Q6H PRN Administration Indigestion Docusate Sodium 100 mg 11/18/23 13:05 11/19/23 09:27 Docusate Sodium 100 Mg Capsule PO Not Given Q12HR YOGI Doxycycline Hyclate 100 mg 11/18/23 12:00 11/19/23 09:24 Doxycycline Hyclate 100 Mg Tablet PO 100 mg Q12HR YOGI Administration Enoxaparin Sodium 40 mg 11/17/23 09:00 11/19/23 09:24 Enoxaparin 40 Mg/0.4 Ml Syringe SUB-Q 40 mg DAILY YOGI Administration Hydromorphone HCl 1 mg 0
[2023-11-19] MEDS: AMITRIPTYLINE HCL 25 MG TABLET 75 MG PO (19:58)
[2023-11-19 20:42] VITALS: PULSE 82; RESP 20
[2023-11-19 21:48] VITALS: BP 156/65; PULSE 84; RESP 13; TEMP 36.3; O2SAT 95
[2023-11-20] MEDS: oxyCODONE/ACETAMINOPHEN (*CRX) 10-325 MG TABLET 1.5 TAB PO ×3 (04:40→20:52)
[2023-11-20 05:46] VITALS: BP 141/60; PULSE 77; RESP 14; TEMP 36.7; O2SAT 98
[2023-11-20 07:15] VITALS: PULSE 82; RESP 18; O2SAT 95
[2023-11-20] MEDS: ALBUTEROL SULFATE (*SP) AEROSOL 1 PUFF 2 PUFF INHALATION ×2 (07:16→20:30)
[2023-11-20] MEDS: DOXYCYCLINE HYCLATE 100 MG TABLET PO ×2 (09:16→20:44)
[2023-11-20] MEDS: DOCUSATE SODIUM 100 MG CAPSULE PO ×2 (09:16→20:44)
[2023-11-20] MEDS: ENOXAPARIN 40 MG/0.4 ML SYRINGE SUB-Q (09:23)
--- NOTE | 2023-11-20 14:01 | PC.NURSE ---
RN worked with pt regarding packing the wound under her L breast. Pt was having a hard time getting it packed and cleaned up. Pt was suppose to be discharged today but was not discharged due to having a hard time doing the packing. Pt start home health on Tuesday to get help with wound packing.
[2023-11-20 15:31] VITALS: BP 142/97; PULSE 82; RESP 14; TEMP 36.5; O2SAT 97
--- NOTE | 2023-11-20 16:34 | PM.IMPN ---
Progress Note: A&P Assessment and Plan (1) Left breast abscess: Code(s): N61.1 - Abscess of the breast and nipple Status: Acute Assessment and Plan: Patient presents with left breast pain and redness. There was a small amount of dark red discharge from the nipple. Imaging showed possible phlegmon but no specific abscess. General surgery consulted and patient went for I&D 11/15 was found to have complex left breast abscess. Vancomycin started. No blood cultures collected. No wound cultures. WBC better. Vanco changed to Doxycycline. Continue antibiotics. Adjust pain medications. Patient does not feel she can do the dressing changes despite staff teaching. Home healthy to help with dressing changes but may not be able to get to her house until Tuesday. Home tomorrow after dressing change with plans for dresing change late Tuesday or Tuesday by HH (2) Hyponatremia: Code(s): E87.1 - Hypo-osmolality and hyponatremia Status: Acute Assessment and Plan: Sodium mildly low at 133. Normal on repeat Monitor periodically (3) Chronic obstructive pulmonary disease: Code(s): J44.9 - Chronic obstructive pulmonary disease, unspecified Status: Acute Assessment and Plan: Stable. Few scattered rhonchi but no wheezing. She states use albuterol twice a day scheduled which was resumed (4) Chronic pain syndrome: Code(s): G89.4 - Chronic pain syndrome Status: Acute Assessment and Plan: Stable. Pain medications available as needed. Continue Elavil Plan DVT prophylax -Lovenox Code status -full Subjective Date/time seen: 11/20/23 16:34 Interval history: 72yo female with history of left breast cancer status post lumpectomy, AML in remission, COPD and chronic pain here for left breast pain and redness. No issues overnight. Staff attempting to help patient learn how to change out dressing but she is very anxious about this. Exam Narrative: AF 97.7 142/97 82 14 97% ra Gen - NARD Chest -Cleari. Left breast shallow wound with clean base at the 5 oclock position without surrounding erythema CV - RRR S1/S2 Abd - Soft, NT/ND, Positive BS Ext - No pedal edema Psych - Nml mood and affect Skin - Warm and dry Objective Data Vital Signs Vital Signs: Vital Signs - 24 hr 11/19/23 20:42 11/19/23 21:48 11/19/23 20:00 Temperature 97.4 F L Pulse Rate 82 84 Respiratory Rate 20 13 Blood Pressure 156/65 H Pulse Oximetry 95 Oxygen Delivery Room Air 11/20/23 05:46 11/20/23 07:15 11/20/23 07:15 Temperature 98.1 F Pulse Rate 77 82 82 Respiratory Rate 14 18 18 Blood Pressure 141/60 H Pulse Oximetry 98 95 Oxygen Delivery Room Air 11/20/23 08:00 11/20/23 15:31 Temperature 97.7 F Pulse Rate 82 Respiratory Rate 14 Blood Pressure 142/97 H Pulse Oximetry 97 Oxygen Delivery Room Air Intake/Output Intake/Output: Intake & Output 11/17/23 11/18/23 11/19/23 11/20/23 23:59 23:59 23:59 23:59 Intake Total 2580 2330 1880 1740 Balance 2580 2330 1880 1740 Meds/Results Medications: Active Medications Generic Name Dose Route Start Last Admin Trade Name Freq PRN Reason Stop Dose Admin Acetaminophen 650 mg 11/15/23 22:07 Acetaminophen 325 Mg Tablet PO Q6H PRN Mild Pain (1-3) or Fever Hydrocodone Bitart/Acetaminophen 1 tab 11/19/23 15:43 Hydrocodone/Acetaminophen (*Crx) 5-325 Mg Tablet PO Q6H PRN Pain Rated 4-6 Albuterol 2 puff 11/15/23 22:08 Albuterol Sulfate (*Sp) Aerosol 1 Puff INHALATION QID PRN Shortness of breath Albuterol 2 puff 11/16/23 20:00 11/20/23 07:16 Albuterol Sulfate (*Sp) Aerosol 1 Puff INHALATION 2 puff Q12HRT YOGI Administration Amitriptyline HCl 75 mg 11/15/23 22:15 11/19/23 19:58 Amitriptyline Hcl 25 Mg Tablet PO 75 mg HS YOGI Administration Calcium Carbonate 200 mg 11/15/23 23:54 11/17/23 22:01 Calcium C
[2023-11-20] MEDS: HYDROcodone/acetaminophen (*CRX) 5-325 MG TABLET 1 TAB PO (17:36)
[2023-11-20 20:31] VITALS: PULSE 84; RESP 18
[2023-11-20] MEDS: AMITRIPTYLINE HCL 25 MG TABLET 75 MG PO (20:44)
[2023-11-20 21:45] VITALS: BP 143/74; PULSE 81; RESP 20; TEMP 37.1; O2SAT 96
[2023-11-21] MEDS: HYDROcodone/acetaminophen (*CRX) 5-325 MG TABLET 1 TAB PO (00:54)
[2023-11-21] MEDS: oxyCODONE/ACETAMINOPHEN (*CRX) 10-325 MG TABLET 1.5 TAB PO ×2 (05:32→12:21)
[2023-11-21 05:39] VITALS: BP 134/99; PULSE 74; RESP 18; TEMP 36.5; O2SAT 98
[2023-11-21] MEDS: ALBUTEROL SULFATE (*SP) AEROSOL 1 PUFF 2 PUFF INHALATION (08:24)
[2023-11-21 08:26] VITALS: O2SAT 91
[2023-11-21] MEDS: DOXYCYCLINE HYCLATE 100 MG TABLET PO (08:36)
[2023-11-21] MEDS: ENOXAPARIN 40 MG/0.4 ML SYRINGE SUB-Q (08:36)
[2023-11-21] MEDS: DOCUSATE SODIUM 100 MG CAPSULE PO (08:36)
[2023-11-21 14:00] VITALS: BP 144/85; PULSE 78; RESP 18; TEMP 36.4; O2SAT 95
--- NOTE | 2023-11-21 15:53 | PM.DS ---
DS: Admitting Diagnosis Discharge Date 11/21/23 Admitting Diagnosis left breast pain and swelling DS: Discharge Diagnosis Discharge Diagnosis (1) Left breast abscess: Code(s): N61.1 - Abscess of the breast and nipple Status: Acute (2) Hyponatremia: Code(s): E87.1 - Hypo-osmolality and hyponatremia Status: Acute (3) Chronic obstructive pulmonary disease: Code(s): J44.9 - Chronic obstructive pulmonary disease, unspecified Status: Acute (4) Chronic pain syndrome: Code(s): G89.4 - Chronic pain syndrome Status: Acute DS: Summary Hospital Course Reason for hospitalization: 72yo female with history of left breast cancer status post lumpectomy, AML in remission, COPD and chronic pain here for left breast pain and redness. Please see H&P for details. Hospital Course: Patient presents with left breast pain and redness.? There was a small amount of dark red discharge from the nipple.? Imaging showed possible phlegmon but no specific abscess. General surgery consulted and patient went for I&D 11/15 was found to have complex left breast abscess. Vancomycin started.? No blood cultures collected.? No wound cultures. WBC better. Vanco changed to Doxycycline.? Discharge was delayed due to patient's inability to do dressing changes despite staff teaching. Home healthy to help with dressing changes but she understands that she will need to do dressing changes on the days home health is not available. She overall did well and was able to be discharged home with dressing change material on 11/21/23. Status at Discharge Cognitive/behavioral status at discharge: stable Time Spent with Patient Time attestation: Total time spent providing and/or coordinating discharge services: 35 minutes Time spent: Greater than 30 minutes Exam Narrative: AF 97.5 144/85 78 18 95% ra Gen - NARD Chest -clear bilaterally. Left breast dressing clean and dry CV - RRR S1/S2 Abd - Soft, NT/ND, Positive BS Ext - No pedal edema Psych - Nml mood and affect Skin - Warm and dry Discharge Plan Discharge Attending physician on discharge: Brian Underwood Consulting providers: Chelsie Fletcher; Kevin Bales Discharging Clinician: Brian Underwood Anticipated Discharge Date/Time: 11/21/23 15:58 Patient Disposition: Home Health Service Activity: as tolerated Diet: regular Wound Care Instructions: other - see discharge instructions Discharge Instructions: Wound Care Instructions: May shower daily. Remove bandage and packing prior to showering. Soap and water around wound. Pat dry after showers. Change packing daily with 1/2 iodoform gauze until only 2-3 inches fit in wound. Then may discontinue packing and just apply 4x4 gauze and tape over wound. Call office for increasing redness, fevers, or other problems with wound. Care Coordination: Home Health referral has been faxed to [facility]. Referral remains pending at time of discharge. Care Coordination will contact [facility] on TuesdayNovember 21, due to the holiday on TuesdayNovember 20. Please complete your antibiotic course even if you are starting to feel well. Take precautions to avoid falls. Rise slowly from a lying or sitting position. Pause before standing or walking. Contact your doctor or call 911 and come to the Emergency Room if you have any fever, lightheadedness with standing or other worrisome symptoms. Avoid NSAIDs (ibuprofen, naproxen, Aleve). Tylenol is safe to take. Follow-up with your primary care provider in 1-2 weeks. Please call for appointment. Follow-up with General Surgery in 2 weeks. Please call for an appointment. Thank you for using [facility] for your health care needs. Patient Instructions: Antibiotic Form, How to Stop Smoking (DC) Stand Alone Forms: General Discharge Information Follow-up/Referrals: UNKNOWN,DOCTOR [Primary Care Pro
== END 2023-11-21 17:40 | disposition home health service (06) | DRG 584 ==
LOC: ANHED 13:33 → ANH3MEDSUR 17:13
PROVIDERS: Physician Assistant; Surgery; Admitting Provider General Practice; Emergency Provider Physician Assistant; Visit Provider Internal Medicine
PROC: 0H9 Skin and Breast, Drainage (ICD-10-PCS; principal; 2023-11-16 12:30)
DX: N61.1 Abscess of the breast and nipple (principal); C92.01 Acute myeloblastic leukemia, in remission; E87.1 Hypo-osmolality and hyponatremia; Z85.3 Personal history of malignant neoplasm of breast; E78.5 Hyperlipidemia, unspecified; F41.9 Anxiety disorder, unspecified; F17.210 Nicotine dependence, cigarettes, uncomplicated; G89.4 Chronic pain syndrome; J44.9 Chronic obstructive pulmonary disease, unspecified; Z79.891 Long term (current) use of opiate analgesic; Z86.73 Personal history of transient ischemic attack (TIA), and cerebral infarction without residual deficits; Z90.49 Acquired absence of other specified parts of digestive tract
CPT/HCPCS: 36415; 76642; 80048; 80053; 82565; 82948; 83735; 85025; 85027; 85652; 86140; 94640; 96365; 96366; 96375; 99285; A9270; G0378; J1100; J1170; J1200; J1650; J1741; J2270; J2371; J2405; J2704; J3010; J3370; J7030; J7120

== ENCOUNTER 2024-07-20 01:50 | Emergency (ER) | payer MEDICARE, MEDICAID, SELFPAY ==
--- NOTE | ~2024-07-20 | XR_ITS ---
Left Shoulder Technique: AP and scapular Y views were obtained. Clinical History: Pain Findings: No fracture or dislocation is seen. Osseous alignment is anatomic. The glenohumeral and acr omioclavicular joints demonstrate moderate degenerative change.. Probable small focus of calcific ten dinitis of the distal rotator cuff insertion. Impression: Degenerative changes, as above. Probable small focus of calcific tendinitis at the distal rotator cuff insertion. Reviewed, dictated and finalized at location M. ENTIONAL MACHINIST Impression: Degenerative changes, as above. Probable small focus of calcific tendinitis at the distal rotator cuff insertio n.
--- NOTE | ~2024-07-20 | XR_ITS ---
Left foot Technique: AP, oblique, and lateral views were obtained. Clinical History: Pain Findings: Small acute avulsion fracture present from the dorsal aspect of the talar head. Probable ad ditional chronic avulsion fracture from the dorsal aspect of the navicular. Osseous alignment is marquez omic. Joint spaces are preserved without erosive or degenerative change. Soft tissues are unremarkabl e. Impression: Small acute avulsion fracture from the dorsal aspect of the talar head. Probable chronic avulsion fracture at the dorsal aspect of the navicular, similar to prior exam from 12/29/2021. Reviewed, dictated and finalized at location . GEMENT PROFESSOR Impression: Small acute avulsion fracture from the dorsal aspect of the talar head. Probable chronic avulsion fracture at the dorsal aspect of the navicular, roxi ar to prior exam from 12/29/2021.
[2024-07-20 01:54] VITALS: BP 110/74; PULSE 79; RESP 20; TEMP 36.6; O2SAT 98
--- NOTE | 2024-07-20 04:09 | PC.NURSE ---
patient in waiting room yelling at this nurse with multiple requests such as socks, blankets etc. patient screamed at this nurse that she wanted to be moved to a chair from the wheel chair. This nurse explained to patient that she stated she is not able to bear weight ant it took 2 medics to get her into the wheelchair and this nurse is not able to lift her. Patient called this nurse a lazy bitch
[2024-07-20] MEDS: HYDROcodone/acetaminophen (*CRX) 5-325 MG TABLET 1 TAB PO (05:56)
--- NOTE | 2024-07-20 06:06 | ED_ITS ---
HPI - Fall General Chief Complaint: Fall Stated Complaint: fall Time Seen by Provider: 07/20/24 05:45 History of Present Illness HPI Narrative: Patient is 73-year-old female who presents to the emergency department this morning complaining of left foot and left shoulder pain. Patient states that she slipped on ice this evening at home. Denies hitting her head. No obvious deformity noted to left shoulder and left foot. Denies any additional injuries or symptoms at this time. Related Data Home Medications ?Medication ?Instructions ?Recorded ?Confirmed ?Last Taken ?Type albuterol sulfate 90 mcg/actuation 2 puff inhalation QID PRN 06/22/19 01/06/24 Unknown History aerosol inhaler (ProAir HFA) Shortness of breath oxycodone-acetaminophen 10 mg-325 1 - 2 tablet PO Q4-6H PRN Pain, 06/22/19 01/06/24 11/15/23 06:00 History mg tablet Moderate amitriptyline 75 mg tablet 75 mg PO HS 12/29/21 01/06/24 11/14/23 19:00 History Allergies Allergy/AdvReac Type Severity Reaction Status Date / Time erythromycin base Allergy Unknown Hives Verified 01/06/24 10:31 tramadol Allergy Unknown Hives Verified 01/06/24 10:31 Review of Systems Review of Systems: All systems are reviewed and are negative unless stated otherwise in the HPI. FORMERLY [facility], [facility] Past Medical History Medical History Asthma Tobacco abuse Chronic pain syndrome On long-term opioid therapy. Dyslipidemia Chronic obstructive pulmonary disease Transient ischemic attack (2020) Cancer of left breast Status post lumpectomy. Acute myeloid leukemia Fibromyalgia Anxiety Surgical History Surgical History History of incision and drainage Incision and drainage of complex left breast abscess 11/16/23 History of lumpectomy of left breast History of tonsillectomy History of cholecystectomy History of cataract extraction Family History Family History Other Unknown family medical history Social History Social History Social History: Surrogate medical decision maker: Lisa Alvarado, friend. Code status: Full code. Smoking packs per day: 0.4 Smoking cigarettes per day: 8.0 Years smoked: 10 Smoking pack-years: 4.00 Smoking status: Current every day smoker Alcohol intake: former Alcohol use details: No recent alcohol use. Substance use: current Substance use type: marijuana and painkillers Do You Feel Safe in your Home?: Yes Lack of Transportation: No Lack of Food: Never True Current Housing: I Have Housing Concerned About Future Housing: No Difficulty Paying Gas/Electric Bills: No Difficulty Paying for Meds: No Currently Unemployed: No Education: Decline to Answer Difficulty w/ Childcare or Family Care: No Living arrangements: alone Additional living arrangements comments: . Lives in her own apartment in [place] with her [place] lidya cat who is aptly named Lidya. Spiritual care concerns: No Exam Narrative: General: Alert, awake, afebrile, in no acute distress. HEENT: PERRL, no rhinorrhea, no post nasal drip, oropharynx clear. Neck: Trachea midline, no JVD, no lymphadenopathy. Cardiovascular: Regular rate and rhythm, no murmurs, rubs or gallops, no peripheral edema. Respiratory: Clear to auscultation bilaterally, no tachypnea, no wheezing, no rhonchi, no rubs, no respiratory distress. Abdomen: Soft, nontender, nondistended, no rebound, no guarding, no peritoneal signs. Musculoskeletal: No swelling or deformity noted to the left foot, no tenderness to palpation over the base of the 5th metatarsal or the midfoot, no bruising or ecchymosis noted, left shoulder joint held in adduction, decreased range of motion secondary to pain, however, patient is able to move her left shoulder joint. Skin: No rashes or petechia, no signs of infection. Psychiatric: Alert and oriented, normal behavior and judgment for situation. Neurological: Alert and oriented to person, place, and time. Follows all commands. No focal deficits, speech is clear and fluent. Course Vital Signs Vital signs: Vital Signs Temperature 97.9 F 07/20/24 01:54 Pulse Rate 79 07/20/24 01:54 Respiratory Rate 20 07/20/24 01:54 Blood Pressure 110/74 07/20/24 01:54 Pulse Oximetry 98 07/20/24 01:54 Temperature 97.9 F 07/20/24 01:54 Pulse Rate 79 07/20/24 01:54 Respiratory Rate 20 07/20/24 01:54 Blood Pressure 110/74 07/20/24 01:54 Pulse Oximetry 98 07/20/24 01:54 MDM - Fall MDM Narrative Medical decision making narrative: The patient was evaluated by myself in the emergency department. History is obtained from patient who is an independent historian and physical exam was performed. External medical records were reviewed at this time. Patient was administered 15 mg of IM Toradol and oral Vandemere 5-325 mg. Imaging studies obtained included left shoulder and foot x-rays which was independently interpreted by me revealin. Probable small focus of calcific tendinitis at the distal rotator cuff insertion. 2. Small acute avulsion fracture from the dorsal aspect of the talar head. Patient was informed of these findings at bedside. Placed in a postop shoe. Instructed that she will need to follow up with Podiatry and patient is agreeable. Also instructed to rest, ice and elevate her left foot. Differential diagnosis considerations include fractures, dislocations, musculoskeletal strain. Comorbidities impacting this visit include none. I have evaluated and discussed social determinants of health with the patient that could potentially impact subsequent diagnosis and treatment plans. On repeat assessment of the patient, reevaluation revealed that the patient is doing well and is in no acute distress. Patient symptoms have improved since she arrived to our emergency department. Repeat vital signs were all reviewed and noted to be stable. Differential diagnosis and treatment plan were discussed with the patient at bedside. Patient agrees with discussion and after shared medical decision making agrees with discharge. All questions were answered to the patient's satisfaction. Patient will follow up with Podiatry in 5-7 days. Patient was provided with strict return precautions and instructed to return to the emergency department if any new or worsening symptoms develop. The patient was discharged in stable condition. Discharge Plan Discharge Clinical Impression: Avulsion fracture of left talus Patient Disposition: Home, Self-Care Condition: Improved Instructions: Antibiotic Form, Foot Fracture in Adults (ED), Avulsion Fracture (ED) Additional Instructions: Please follow-up with the inspector cold working/foot surgeon you were provided with today, call and set up a follow-up appointment to be seen within the next 5-7 days. Return to the emergency department if any new or worsening symptoms develop. You will need to rest, ice and elevate her left foot in the meantime, use ibuprofen and Tylenol as needed for pain. Patient Language: Syriac Prescriptions: No Action oxycodone-acetaminophen 10-325 mg Tablet 1 - 2 tablet PO Q4-6H PRN (Reason: Pain, Moderate) Patient Comments: Patient states she took her oxycodone 7/ unknown time albuterol sulfate [ProAir HFA] 90 mcg/actuation Hfa Aerosol Inhaler 2 puff INHALATION QID PRN (Reason: Shortness of breath) doxycycline hyclate 100 mg Tablet 100 mg PO Q12HR Qty: 7 0RF amitriptyline 75 mg Tablet 75 mg PO HS Patient Comments: Patient states she took it this morning. AMS. Patient has had problems with this medication in the past. Follow-up/Referrals: UNKNOWN,DOCTOR [Primary Care Provider] - [place] DPM [Physician] - 1 Week Time of Disposition: 06:00
[2024-07-20] MEDS: KETOROLAC 15 MG/ML VIAL (*BKC) IM (06:11)
[2024-07-20 06:22] VITALS: BP 115/73; PULSE 73; RESP 16; O2SAT 99
[2024-07-20 07:04] VITALS: BP 115/73; PULSE 73; RESP 16; O2SAT 99
== END 2024-07-20 07:06 | disposition home or self-care (01) ==
LOC: ANHED 06:09
PROVIDERS: Emergency Provider Emergency Medicine
DX: S92.152A Displaced avulsion fracture (chip fracture) of left talus, initial encounter for closed fracture (principal); J44.9 Chronic obstructive pulmonary disease, unspecified; E78.5 Hyperlipidemia, unspecified; G89.4 Chronic pain syndrome; M79.7 Fibromyalgia; F41.9 Anxiety disorder, unspecified; F17.210 Nicotine dependence, cigarettes, uncomplicated; Z85.6 Personal history of leukemia; Z86.73 Personal history of transient ischemic attack (TIA), and cerebral infarction without residual deficits; Z85.3 Personal history of malignant neoplasm of breast; Z98.49 Cataract extraction status, unspecified eye; Z90.49 Acquired absence of other specified parts of digestive tract; Z79.899 Other long term (current) drug therapy; W00.0XXA Fall on same level due to ice and snow, initial encounter
CPT/HCPCS: 73030; 73630; 96372; 99284; A9270; J1885

== ENCOUNTER 2024-10-23 16:28 | Emergency (ER) | payer MEDICARE, MEDICAID, SELFPAY ==
[2024-10-23 16:29] VITALS: PULSE 94; RESP 20; O2SAT 95
[2024-10-23 16:33] VITALS: O2SAT 95
--- NOTE | 2024-10-23 16:33 | ECG_ITS ---
Test Date: 2024-10-23 16:40:08 Measurements Intervals Stryker Rate: 87 P: 78 MS: 147 QRS: 60 QRSD: 72 T: 67 QT: 345 QTc: 415 Interpretive Statements SINUS RHYTHM POSSIBLE LEFT ATRIAL ENLARGEMENT MINIMAL Q WAVES- INFERIOR LEADS BASELINE ARTIFACT- I, III, AVR, AVL, AVF, V1-V6 BORDERLINE ECG No previous ECG available for comparison Electronically Signed On 10-23-2024 17:10:26 CDT by Alexandro Mckeon D.O.
[2024-10-23 16:50] LABS: Basophils Absolute Auto 0.1 K/mm3 (0.0-0.1); Basophils Percent Auto 0.7 % (0.2-1.2); Eosinophils Absolute Auto 0.3 K/mm3 (0-0.3); Eosinophils Percent Auto 3.4 % (0-4.4); Hematocrit 45.3 % (37.0-47.0); Hemoglobin 14.9 g/dL (12.0-15.0); Immature Granulocyte Absolute 0.02 K/mm3 (0.00-0.031); Immature Granulocyte Percent A 0.2 % (0-0.5); Immature Platelet Fraction Pct 3.9 % (0.9-11.2); Lymphocytes Absolute Auto 1.49 K/mm3 (0.9-3.2); Lymphocytes Percent Auto 16.8 % (18.3-44.2); Mean Corpuscular HGB Conc 32.9 g/dl (32-36); Mean Corpuscular Hemoglobin 30.2 pg (26-34); Mean Corpuscular Volume 91.7 fl (80-100); Mean Platelet Volume 10.1 fl (7.4-10.4); Monocytes Absolute Auto 0.7 K/mm3 (0.1-0.6); Monocytes Percent Auto 7.4 % (2.6-8.5); Neutrophils Absolute Auto 6.3 K/mm3 (1.3-6.7); Neutrophils Percent Auto 71.5 % (45.5-73.1); Platelet Count Result 184 k/mm3 (150-375); Red Blood Count 4.94 M/mm3 (4.2-5.4); Red Cell Distribution Width 13.6 % (11.5-14.5); White Blood Count 8.9 K/mm3 (4.5-10.0)
--- NOTE | 2024-10-23 17:05 | ED_ITS ---
HPI - SOB/Dyspnea General Chief Complaint: Shortness of Breath/Dyspnea Stated Complaint: SOB Time Seen by Provider: 10/23/24 16:58 Source: patient Mode of arrival: EMS Limitations: no limitations History of Present Illness HPI Narrative: Patient is a 73 y/o female who presents to the ED via EMS with report of SOB. Patient has history of COPD. She has recently been on antibiotics for a sinus infection. She was also recently prescribed an inhaler, but states it was the wrong inhaler. She states her oxygen level was down to 90% at home which prompted her to contact EMS. Upon arrival to the ED, patient declining further workup. Related Data Home Medications ?Medication ?Instructions ?Recorded ?Confirmed ?Last Taken ?Type albuterol sulfate 90 mcg/actuation 2 puff inhalation QID PRN 06/22/19 01/06/24 Unknown History aerosol inhaler (ProAir HFA) Shortness of breath oxycodone-acetaminophen 10 mg-325 1 - 2 tablet PO Q4-6H PRN Pain, 06/22/19 01/06/24 11/15/23 06:00 History mg tablet Moderate amitriptyline 75 mg tablet 75 mg PO HS 12/29/21 01/06/24 11/14/23 19:00 History Allergies Allergy/AdvReac Type Severity Reaction Status Date / Time erythromycin base Allergy Unknown Hives Verified 01/06/24 10:31 tramadol Allergy Unknown Hives Verified 01/06/24 10:31 Review of Systems 2 Review of Systems: All systems reviewed & are unremarkable except as noted in HPI. All systems reviewed & are unremarkable except as noted in HPI and below PMFSH Past Medical History Medical History Asthma Tobacco abuse Chronic pain syndrome On long-term opioid therapy. Dyslipidemia Chronic obstructive pulmonary disease Transient ischemic attack (2020) Cancer of left breast Status post lumpectomy. Acute myeloid leukemia Fibromyalgia Anxiety Surgical History Surgical History History of incision and drainage Incision and drainage of complex left breast abscess 11/16/23 History of lumpectomy of left breast History of tonsillectomy History of cholecystectomy History of cataract extraction Family History Family History Other Unknown family medical history Social History Social History Social History: Surrogate medical decision maker: Lisa Barronak, friend. Code status: Full code. Smoking packs per day: 0.4 Smoking cigarettes per day: 8.0 Years smoked: 10 Smoking pack-years: 4.00 Smoking status: Current every day smoker Alcohol intake: former Alcohol use details: No recent alcohol use. Substance use: current Substance use type: marijuana and painkillers Do You Feel Safe in your Home?: Yes Lack of Transportation: No Lack of Food: Never True Current Housing: I Have Housing Concerned About Future Housing: No Difficulty Paying Gas/Electric Bills: No Difficulty Paying for Meds: No Currently Unemployed: No Education: Decline to Answer Difficulty w/ Childcare or Family Care: No Living arrangements: alone Additional living arrangements comments: . Lives in her own apartment in [place] with her [place] blue cat who is aptly named Ortiz. Spiritual care concerns: No Exam 2 Narrative: GENERAL: Well appearing, obese with BMI of 30.8, non-toxic, in no acute distress. HEAD: Normocephalic, atraumatic. RESPIRATORY: Airway patent, respirations nonlabored. CARDIOVASCULAR: Regular rate and rhythm on telemetry MUSCULOSKELETAL: Moves all extremities. No gross deformities. SKIN: Warm, dry, normal color. NEURO: A&O X3. Speech clear. Steady gait. No ataxic movements. PSYCHIATRIC: Appropriate mood and affect. Normal interaction. Course Vital Signs Vital signs: Vital Signs Pulse Rate 94 10/23/24 16:29 Respiratory Rate 20 10/23/24 16:29 Pulse Oximetry 95 10/23/24 16:29 Oxygen Delivery Room Air 10/23/24 16:29 Pulse Rate 94 10/23/24 16:29 Respiratory Rate 20 10/23/24 16:29 Pulse Oximetry 95 10/23/24 16:33 Oxygen Delivery Room Air 10/23/24 16:33 MDM - SOB/Dyspnea MDM Narrative Medical decision making narrative: Patient presented to ED from home via EMS for shortness of breath. Upon initial arrival to the ED, most of patient's vital signs were stable. Patient refused blood pressure cuff. EKG was obtained which showed sinus rhythm, nonspecific ST changes. No acute STEMI. Patient received an IV by EMS personnel, and initially allowed ED staff here to draw her blood, however 1 of her specimen was hemolyzed and required a redraw. Patient then refused further blood work. States she cannot handle the pain from the tourniquet being placed on her arm. States she wants to go home. I was called to the patient's bedside. Patient declining any further workup by myself, states she does not want me to perform any further testing or work up. States she would like to go home. I advised that she will need to sign out against medical advice if she decided to leave as I cannot rule out life threatening cardiopulmonary abnormalities. Discussed possibility of , disability, hypoxia, pneumonia, cardiac arrest, sepsis, etc. Patient voiced understanding of risks of leaving AMA and is still adamant that she would like to leave the hospital w/o any further w/u. Patient is A&OX4, of sound mind, capable of making her own decisions. She states she will return if her symptoms worsen. AMA paperwork was signed. Patient ambulated out of the facility with a steady gait. Medical Records Attestation: I reviewed the patient's medical records. Lab Data Attestation: I reviewed the patient's lab results. 10/23/24 16:44 10/23/24 16:44 Labs: Lab Results 10/23/24 Range/Units 16:44 WBC 8.9 (4.5-10.0) K/mm3 RBC 4.94 (4.2-5.4) M/mm3 Hgb 14.9 (12.0-15.0) g/dL Hct 45.3 (37.0-47.0) % MCV 91.7 (80-100) fl MCH 30.2 (26-34) pg MCHC 32.9 (32-36) g/dl RDW 13.6 (11.5-14.5) % Plt Count 184 (150-375) k/mm3 MPV 10.1 (7.4-10.4) fl Immature Gran % (Auto) 0.2 (0-0.5) % Neut % (Auto) 71.5 (45.5-73.1) % Lymph % (Auto) 16.8 L (18.3-44.2) % [place] % (Auto) 7.4 (2.6-8.5) % Eos % (Auto) 3.4 (0-4.4) % Baso % (Auto) 0.7 (0.2-1.2) % Lymph # (Auto) 1.49 (0.9-3.2) K/mm3 [place] # (Auto) 0.7 H (0.1-0.6) K/mm3 Eos # (Auto) 0.3 (0-0.3) K/mm3 Baso # (Auto) 0.1 (0.0-0.1) K/mm3 Abs Immat Gran (auto) 0.02 (0.00-0.031) K/mm3 Absolute Neuts (auto) 6.3 (1.3-6.7) K/mm3 Absolute Nucleated RBC 0.000 (0.0-0.012) K/mm3 Nucleated RBC % 0.0 (0.0-0.2) % % Immature Plt Fraction 3.9 (0.9-11.2) % Sodium Cancelled Potassium Cancelled Chloride Cancelled Carbon Dioxide Cancelled Anion Gap Cancelled BUN Cancelled Creatinine Cancelled Estim Creat Clear Calc Cancelled Estimated GFR Cancelled Glucose Cancelled Calcium Cancelled Total Bilirubin Cancelled AST Cancelled ALT Cancelled Alkaline Phosphatase Cancelled Total Protein Cancelled Albumin Cancelled ECG Data EKG #1: Attestation: I personally reviewed and interpreted this ECG as follows: ECG completion date: 10/23/24 ECG completion time: 16:40 EKG Interpretation: normal rate (87), sinus rhythm and no ST changes Discharge Plan Discharge Clinical Impression: Shortness of breath Patient Disposition: Left Against Medical Advice Condition: Guarded Prognosis Patient Language: Setswana Prescriptions: No Action oxycodone-acetaminophen 10-325 mg Tablet 1 - 2 tablet PO Q4-6H PRN (Reason: Pain, Moderate) Patient Comments: Patient states she took her oxycodone 7/4 unknown time albuterol sulfate [ProAir HFA] 90 mcg/actuation Hfa Aerosol Inhaler 2 puff INHALATION QID PRN (Reason: Shortness of breath) doxycycline hyclate 100 mg Tablet 100 mg PO Q12HR Qty: 7 0RF amitriptyline 75 mg Tablet 75 mg PO HS Patient Comments: Patient states she took it this morning. AMS. Patient has had problems with this medication in the past. Follow-up/Referrals: UNKNOWN,DOCTOR [Primary Care Provider] - Time of Disposition: 17:07
--- OUTSIDE RECORDS SUMMARY | 2024-10-23 17:43 | XMS_ITS | Encounter Summary ---
Author Organization [facility] Address [address] [place] [address] Phone Care Team Providers Care Automation Engineer Name Role Phone Marvin Shaikh MD Unavailable [phone] John Paul Sharif MD Unavailable [phone] Joni Manning MD Unavailable Mark Bettencourt DO Unavailable [phone] Joni Ortega MD Primary Care Provider [phone] Gabrielle Jones MD Unavailable Reason for Visit * Reason Comments Medication Refill Encounter Details Date Type Department Care Team (Late st Contact Info) Description 05/20/2023 Refill [facility] - Family Medicine [facility] [address] [place] [address] Joni Ortega MD [address] [address] Medication Refill Social History Tobacco Use Types Packs/Day Years Used Date Smoking Tobacco: Never Smokeless Tobacco: Never Alcohol Use Standard Drinks/Week Comments No 0 (1 standard drink = 0.6 oz pur e alcohol) PHQ-2 Answer Date Recorded Total Score - Questions 1-9 14 12/2022 Sexually Active Control Partners Comments Never Comments No Sex and Gender Information Value Date Recorded Sex Assigned at Not on file Legal Sex Female 9:14 PM CDT Gender Identity Not on file Sexual Orientation Not on file Occupation Industry Job Start Date Job End Date 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 Requested Prescriptions Pending Prescriptions Disp Refills albuterol 108 (90 Base) MCG/ACT Aerosol Solution [Pharmacy Med Name: ALBUTEROL HFA INH (200 PUFFS) 8.5GM] 8.5 g 0 Sig: INHALE 2 PUFFS BY MOUTH EVERY 6 HOURS NEEDED FOR WHEEZING Short Acting Inhaled Beta-Agonists Protocol Passed - 05/20/2023 11:14 AM Passed - Visit with relevant provider in past 12 months or upcoming 90 days Recent Visits Date Type Provider Dept 12/01/22 Office Visit Heather Sosa APRN, [facility] 08/24/22 [facility] Showing recent visits within past 365 days and meeting all other requirements Future Appointments No visits were found meeting these conditions. Showing future appointments within next 90 days and meeting all other requirements ERCIAL LOAN REVIEWER documented in this encounter Plan of Treatment Upcoming Encounters Date Type Department Care Team (Late st Contact Info) Description 10/29/2024 1:30 PM CDT Office Visit [facility] - [facility] - [place] [address] [place] [address] Gabrielle Jones MD [address] [address] documented as of this encounter Visit Diagnoses Not on filedocumented in this encounter Additional Health Concerns Assessment Noted Time PHQ-9 Depression Total Score: 14 023 10:00 AM CDT documented as of this encounter Care Teams Automation Engineer Relationship Specialty Start Date End Date Joni Ortega MD [address] [facility] [address] [place] [address] PCP - General Family Medicine 12/26/20 Marvin Shaikh MD [address] [place] [address] Consulting Physician Oncology 07/22/17 John Paul Sharif MD [address] [facility] [address] [place] [address] Consulting Physician Orthopaedic Surgery 07/22/17 Joni Manning MD 4 [facility] [address] [place] [address] Consulting Physician Neurology 02/15/18 Mark Bettencourt DO 4 [facility] [address] [place] [address] Gastroenterology 06/07/18 Gabrielle Jones MD [address] [facility] [address] [place] [address] Consulting Physician Orthopaedic Surgery 09/17/24 documented as of this encounter
--- OUTSIDE RECORDS SUMMARY | 2024-10-23 17:43 | XMS_ITS | Encounter Summary ---
Author Organization [facility] Address [address] [place] [address] Phone Care Team Providers Care Property Master Name Role Phone Marvin Shaikh MD Unavailable [phone] John Paul Sharif MD Unavailable [phone] Joni Manning MD Unavailable [phone] Mark Bettencourt DO Unavailable [phone] Joni Ortega MD Primary Care Provider [phone] Gabrielle Jones MD Unavailable Reason for Visit * Reason Onset Date Comments Breathing Problem 10/23/2024 Encounter Details Date Type Department Care Team (Late st Contact Info) Description 10/23/2024 [facility] [address] [place] [address] Joni Ortega MD #[address] [address] Breathing Problem Social History Tobacco Use Types Packs/Day Years Used Date Smoking Tobacco: Never Smokeless Tobacco: Never Alcohol Use Standard Drinks/Week Comments No 0 (1 standard drink = 0.6 oz pur e alcohol) PHQ-2 Answer Date Recorded Total Score - Questions 1-9 0 08/26 Sexually Active Control Partners Comments Never Comments [...] encounter Miscellaneous Notes * Telephone Encounter - Haley Bullock RN - 10/23/2024 3:36 PM CDT Situation: short of breath, wheezing Background: Patient contacting PCP office. Assessment: Patient calling relaying she needs a change in her inhaler. Albuterol worked that she was using and it was changed to something else that isnt working at all. She states she is short of breath, coughing, wheezing, having midline chest pain that has been more than 5 minutes now, She coughs and she is worse with feeling short of breath. Used inhaler last 10 minutes ago and doesn't help at all.She doesn't know the name of it Requests albuterol inhaler to be refilled instead of what she has been using. Feels like she is worse than she was after using the current inhaler she has on hand, she is havingdifficulty breathing now. Patient verbalizes she has a friend there with her now. Recommendation: Advised to call 911 to get to ED immediately . Rn able to hear shortness of breath worsen with conversation. Patient verbalize understanding and is agreeable. Patient states she will call to 911. Patient states she will be going to [facility]. Message routed to provider regarding inhaler concerns per patient. Reason for Disposition Chest pain Chest pain lasting longer than 5 minutes and over 44 years old Protocols used: Breathing Vpyfhkaeny-E-RL, Chest Pain-A-OH documented in this encounter Plan of Treatment Upcoming Encounters Date Type Department Care Team (Late st Contact Info) Description 10/29/2024 1:30 PM CDT Office Visit [facility] [address] [place] [address] Gabrielle Jones MD [address] [address] documented as of this encounter Visit Diagnoses Not on filedocumented in this encounter Additional Health Concerns Assessment Noted Time PHQ-9 Depression Total Score: 0 09/14/19 25 2:00 PM CDT documented as of this encounter Care Teams Property Master Relationship Specialty Start Date End Date Joni Ortega MD [address] [facility] [address] [place] [address] PCP - General Family Medicine 12/26/20 Marvin Shaikh MD [address] [place] [address] Consulting Physician Oncology 07/22/17 John Paul Sharif MD [address] [place] [address] Consulting Physician Orthopaedic Surgery 07/22/17 Joni Manning MD [address] [facility] [address] [place] [address] Consulting Physician Neurology 02/15/18 Mark Bettencourt DO [address] [facility] [address] [place] [address] Gastroenterology 06/07/18 Gabrielle Jones MD [address] [facility] [address] [place] [address] Consulting Physician Orthopaedic Surgery 09/17/24 documented as of this encounter
--- OUTSIDE RECORDS SUMMARY | 2024-10-23 17:43 | XMS_ITS | Clinical Summary ---
Author Organization [facility] Address [address], [facility] [address] [place] [address] Phone Care Team Providers Care Funeral Home Makeup Artist Name Role Phone Marvin Shaikh MD Unavailable [phone] John Paul Sharif MD Unavailable [phone] Joni Manning MD Unavailable [phone] Mark Bettencourt DO Unavailable [phone] Joni Ortega MD Primary Care Provider [phone] Gabrielle Jones MD Unavailable Allergies Active Allergy Reactions Criticality Noted Date Comments Bee Venom Anaphylaxis High 03/22/2017 BEE STINGS Duloxetine Hcl Hives,Diarrhea,Vomiting 05/09/20 20 Erythromycin Nausea 05/08/2015 Pregabalin Other (see Comments) 03/24/2018 Per patient suicidal Nitrofurantoin Unknown 08/24/2022 Tramadol Nausea 05/08/2015 Medications oxyCODONE-Acet aminophen (PERCOCET) 10-325 MG Tablet Take 1 Tablet by mouth 4 times daily as needed. 1 Active Albuterol Sulfate (ProAir RespiClick) 108 (90 Base) MCG/ACT AEROSOL POWDER, BREATH ACTIVATED take 2 Puffs by inhalation 4 times daily as needed for Wheezing. 1 Each 12 3 Active amitriptyline (ELAVIL) 10 MG TabletIndicati ons:Fibromyalg ia Take 1 Tablet by mouth nightly. 90 Tablet 3 Active Additional Information Patient not taking.Reported on 09/17/2024 albuterol 108 (90 Base) MCG/ACT Aerosol Solution INHALE 2 PUFFS BY MOUTH EVERY 6 HOURS NEEDED FOR WHEEZING 8.5 g 3 Active tiZANidine (ZANAFLEX) 2 MG TabletIndicati ons:Humeral head fracture, left, closed, initial encounter Take 1 Tablet by mouth 3 times daily. 90 Tablet 5 Active fluticasone-sa lmeterol (ADVAIR) 250-50 MCG/ACT AEROSOL POWDER, BREATH ACTIVATED take 1 Puff by inhalation 2 times daily. 60 Each 6 5 Active Amoxicillin 500 MG Tablet Take 1 Tablet by mouth 3 times daily for 7 days. 21 Tablet 5 025 Active tiZANidine (ZANAFLEX) 2 MG TabletIndicati ons:Humeral head fracture, left, closed, initial encounter Take 1 Tablet by mouth 3 times daily. 90 Tablet 5 025 Discontinu ed(Reorder ) Cholecalcifero l (Vitamin D3) 25 mcg Capsule Take 1 Capsule by mouth daily for 30 days. 90 Capsule 3 5 025 fluticasone-sa lmeterol (ADVAIR) 250-50 MCG/ACT AEROSOL POWDER, BREATH ACTIVATED take 1 Puff by inhalation 2 times daily. 60 Each 6 5 025 Discontinu ed(Reorder ) Active Problems Problem Noted Date Diagnosed Date Hyperglycemia 09/22/2024 Hematuria 09/13/2024 Humeral head fracture, left, closed, initial enc ounter 09/13/2024 Obesity (BMI 30-39.9) 09/13/2024 Diet-controlled diabetes mellitus 09/13/2024 History of colon polyps 09/13/2024 Hemorrhoids 09/13/2024 Dysuria 09/13/2024 Acute foot pain, left 09/13/2024 Pain of left lower extremity 09/13/2024 Drug-induced polyneuropathy 10/04/2018 Acute non-recurrent maxillary sinusitis 06/07/20 18 Screening for cervical cancer 06/06/2018 Chronic midline low back pain without sciatica 1 07/24/2017 Hyponatremia 01/18/2018 Mastoiditis of both sides 01/18/2018 Overview (02/20/2018): Last Assessment & Plan: CT of the head was consistent with bilateral mastoiditis. Also noted to have elevated white cell count. Associated tinnitus and vertigo could be secondary to vestibulitis associated with mastoiditis. The patient also complains of some allergy symptoms with scratchy throat. Will start on Benadryl at bedtime should help with insomnia as well as allergies. 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 07/22/2017 Diverticula of colon 05/08/2015 018 Mastitis 05/08/2015 07/22/2017 Encounters Date Type Department Care Team Description 10/23/2024 Nurse Triage [facility] [address] [place] [address] [phone] Joni Ortega MD Breathing Problem 10/22/2024 [facility] [address] [place] [phone] Joni Ortega MD Sinus Problem 10/18/2024 [facility] [place] [facility] [place] [address] Joni Ortega MD 10/17/2024 Telephone [facility] [address] [place] [phone] Joni Ortega MD Advice Only 10/16/2024 [facility] [place] [facility] [place] [phone] Joni Ortega MD 10/15/2024 [facility] [address] [place] [address] [phone] Joni Ortega MD Follow-up 10/09/2024 [facility] [place] [facility] [place] [phone] Nawaf Mancilla MD Medication Refill 10/09/2024 [facility] [address] [place] [phone] Joni Ortega MD Medication Management 10/02/2024 [facility] [address] [place] [phone] Joni Ortega MD Advice Only 09/28/2024 [facility] [address] [place] [phone] Joni Ortega MD Advice Only; Appointment 09/22/2024 Results Follow-Up [facility] [address] [place] [phone] Nawaf Mancilla MD CULTURE, URINE, HEMOGLOBIN A1C W/ ESTIMATED GLUCOSE, CMP (COMPREHENSIVE METABOLIC PANEL), Additional followed-up results: 5 09/22/2024 Results Follow-Up [facility] [address] [place] [phone] Nawaf Mancilla MD XR FOOT 3 OR MORE VIEWS LEFT 09/21/2024 Results Follow-Up [facility] [address] [place] [phone] Katina Valle RN MRI LEFT SHOULDER WO CONTRAST 09/20/2024 [facility] [place] [facility] [place] [phone] Joni Ortega MD Results; Follow-up 09/18/2024 [facility] [address] [place] [phone] Joni Ortega MD Results 09/17/2024 11:20 AM CDT - 09/17/2024 11:59 PM CDT [facility] [address] [place] [phone] Gabrielle Jones MD Discharge Disposition: Discharged to home or Selfcare 09/17/2024 11:00 AM CDT Office Visit [facility] - Orth[facility] [address] [place] [phone] Gabrielle Jones MD Humeral head fracture, left, closed, initial encounter (Primary Dx) Discharge Disposition: Discharged to home or Selfcare 09/17/2024 [facility] [address] [place] [phone] Joni Ortega MD High Blood Pressure 09/17/2024 Travel 09/17/2024 [facility] [address] [place] [phone] Joni Ortega MD Appointment 09/14/2024 Telephone [facility] [address] [place] [phone] Joni Ortega MD 09/13/2024 3:00 PM CDT - 09/13/2024 11:59 PM CDT [facility] [address] [place] [phone] Nawaf Mancilla MD Discharge Disposition: Discharged to home or Selfcare 09/13/2024 2:15 PM CDT Office Visit [facility] [place] [address] [place] [phone] Nawaf Mancilla MD Humeral head fracture, left, closed, initial encounter (Primary Dx); Dysuria; Hematuria, unspecified type; Obesity (BMI 30-39.9); Diet-controlled diabetes mellitus (HCC); Vitamin D deficiency; History of colon polyps; Hemorrhoids, unspecified hemorrhoid type; Pain of left lower extremity; Acute foot pain, left Discharge Disposition: Discharged to home or Selfcare 09/13/2024 Travel 09/12/2024 Refill [facility] [address] [place] [phone] Joni Ortega MD Medication Refill 08/28/2024 [facility] [address] [place] [phone] Joni Ortega MD Referral 08/24/2024 [facility] [address] [place] [phone] Joni Ortega MD Follow-up; Advice Only 08/13/2024 Telephone [facility] [address] [place] [phone] Joni Ortega MD 08/13/2024 Nurse Triage [facility] [address] [place] [phone] Joni Ortega MD Vaginal Discharge 08/06/2024 [facility] [address] [place] [phone] Joni Ortega MD Care Management 07/25/2024 Telephone [facility] [address] [place] [phone] Joni Ortega MD Advice Only from Last 3 Months Immunizations Immunization Administration Dates Next Due TDAP Vaccine 03/30/2015 Td, Unspecified Formulation 06/27/2010 Tetanus Toxoid, Unspecified Formulation 06/27/19 11 Family History Medical History Relation Name Comments Diabetes Father Cancer Mother LYMPHOMA Cancer Sister paraneoplastic syndrome Relation Name Status Comments Father Mother Sister Social History Tobacco Use Types Packs/Day Years [...] file Not on file Not on file Last Filed Vital Signs Vital Sign Reading Time Taken Comments Blood Pressure 152/82 09/17/2024 10:43 AM CDT Pulse 91 09/17/2024 10:43 AM CDT Temperature 35.9 C (96.6 F) 09/13/2024 1:58 PM CDT Respiratory Rate 14 09/17/2024 10:43 AM CDT Oxygen Saturation 94% 09/17/2024 10:43 AM CDT Inhaled Oxygen Concentration - - Weight 83 kg (183 lb) 09/17/2024 10:43 AM CDT Height 162.6 cm (5' 4 ) 09/17/2024 10:43 AM CDT Body Mass Index 31.41 09/17/2024 10:43 AM CDT Plan of Treatment Upcoming Encounters Date Type Department Care Team (Late st Contact Info) Description 10/29/2024 1:30 PM CDT [facility] [address] [place] [phone] Gabrielle Jones MD [address] [address] Health Maintenance Due Date Last Done Comments DEXA Bone Density 1948 Diabetes: Eye Exam 1948 Diabetes: Foot Exam 1948 SARS-COV-2 Immunization (#1) 1953 Pneumococcal Immunization (50+ years) (1 of 2 - PCV) 12/08/1967 Zoster Immunization (1 of 2) 12/08/1967 Cologuard 1998 Colonoscopy 03/22/2018 03/22/2017, 06/27/2003 Colorectal Cancer Screening 10/05/2018 Immunochemical Fecal Occult Blood 10/05/2019 10/04/2018, 07/24/2015 Discussion re Stopping Mammograms 12/08/2023 Respiratory Syncytial Virus (RSV) Immunization (Adult) (1 - 1-dose 75+ series) 12/08/2023 Influenza Immunization (Season Ended) 2025 Diabetes: Hemoglobin A1c 03/16/2025 09/13/2024 Td Immunization Every 10 Years (Adults With 1 Tdap) 03/30/2025 03/30/2015, 06/27/2010 Mammogram 05/07/2025 11/29/2017 Postponed from 11/29/2018 (Patient Temporarily Declines) Diabetes: Nephropathy Screening 09/13/2025 09/13/2024, 12/01/2022, 10/05/2022, Additional history exists 03/22/2017 Hepatitis C Virus (HCV) Screening Completed 02/23/2022 Hepatitis B Immunization Aged Out No longer eligible based on patient's age to complete this topic Meningococcal Immunization (ACWY) Aged Out No longer eligible b ased on patient's age to complete this topic Rotavirus Immunization Aged Out No lo nger eligible based on patient's age to complete this topic Procedures Procedure Name Priority Date/Time Associated Diagnosis Comments XR SHOULDER COMPLETE LEFT Routine 09/17/2024 11:36 AM CDT Humeral head fracture, left, closed, initial encounter CULTURE, URINE Today 09/14/2024 11:34 AM CDT Dysuria XR FOOT 3 OR MORE VIEWS LEFT Routine 09/13/2024 3:28 PM CDT Pain of left lower extremity Acute foot pain, left CBC WITH AUTO DIFFERENTIAL Routine 09/13/2024 3:06 PM CDT Hematuria, unspecified type LIPID PANEL Routine 09/13/2024 3:06 PM CDT Obesity (BMI 30-39.9) VITAMIN D, 25 HYDROXY TOTAL Routine 09/13/2024 3:06 PM CDT Vitamin D deficiency VITAMIN B12 Routine 09/13/2024 3:06 PM CDT Hematuria, unspecified type THYROID STIMULATING HORMONE (TSH) Routine 09/13/2024 3:06 PM CDT Dysuria Humeral head fracture, left, closed, initial encounter Hematuria, unspecified type Obesity (BMI 30-39.9) Diet-controlled diabetes mellitus (HCC) Vitamin D deficiency History of colon polyps Hemorrhoids, unspecified hemorrhoid type CMP (COMPREHENSIVE METABOLIC PANEL) Routine 09/13/2024 3:06 PM CDT Dysuria Humeral head fracture, left, closed, initial encounter Hematuria, unspecified type Obesity (BMI 30-39.9) Diet-controlled diabetes mellitus (HCC) Vitamin D deficiency COMPLETE BLOOD COUNT (CBC) WITH DIFF Routine 09/13/2024 3:06 PM CDT Hematuria, unspecified type HEMOGLOBIN A1C W/ ESTIMATED GLUCOSE Routine 09/13/2024 3:06 PM CDT Diet-controlled diabetes mellitus (HCC) POCT UA AUTOMATED W/O MICRO Routine 09/13/2024 2:09 PM CDT Dysuria MRI LEFT SHOULDER WO CONTRAST Routine 09/11/2024 12:00 AM CDT Left shoulder pain, unspecified chronicity HEPATITIS PANEL ACUTE (AHP) Routine 02/23/2022 2:36 PM CDT Sweating profusely POCT STOOL, OCCULT BLOOD, DIAGNOSTIC Routine 10/04/2018 8:50 AM CDT Diarrhea in adult patient Bright red stool LIZZETH DIAG BILATERAL DIGITAL W CAD W ARTSI Routine 11/29/2017 10:24 AM CDT Bilateral nipple discharge Breast pain, left from Last 3 Months or Most Recently Relevant to Health Maintenance Results * XR SHOULDER COMPLETE LEFT (09/17/2024 11:36 AM CDT) Anatomical Region Laterality Modality UPPER EXTREMITY, shoulder Left Digita l Radiography 09/21/2024 11:4 9 AM CDT Impressions 09/21/2024 11:52 AM CDT IMPRESSION: 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 Narrative 09/21/2024 11:52 AM CDT EXAM DESCRIPTION: XR SHOULDER COMPLETE LEFT REASON FOR STUDY: 1 month Follow up for humeral head fracture- continued severe pain with numness in hand and limited range of motion since fall 1 month ago FINDINGS: Four views submitted with comparison 12/01/2022. No acute fracture. Alignment is normal. Mild glenohumeral and moderate acromioclavicular joint osteoarthritis. THIS IS AN ELECTRONICALLY VERIFIED FINAL REPORT 09/21/2024 11:49 AM - Electronically signed by Joni Cade M.D. MF: [email or web address] Report ID: [id number] Reading Location: [id number] Procedure Note Joni Cade MD - 09/21/2024 EXAM DESCRIPTION: XR SHOULDER COMPLETE LEFT REASON FOR STUDY: 1 month Follow up for humeral head fracture- continued severe pain with numness in hand and limited range of motion since fall 1 month ago FINDINGS: Four views submitted with comparison 12/01/2022. No acute fracture. Alignment is normal. Mild glenohumeral and moderate acromioclavicular joint osteoarthritis. THIS IS AN ELECTRONICALLY VERIFIED FINAL REPORT 09/21/2024 11:49 AM - Electronically signed by Joni Cade M.D. MF: [email or web address] Report ID: [id number] Reading Location: [id number] IMPRESSION: 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 Gabrielle Jones MD [facility] DIAGNOSTIC ORDERABLES Final Result * CULTURE, URINE (09/14/2024 11:34 AM CDT) CULTURE RESULTS Mixed Growth of One or More Distal Urethral Contaminants 09/15/2024 4:04 PM CDT [facility] Culture URINE SPECIMEN OBTAINED BY CLEAN CATCH PROCEDURE / Unknown Non-Phlebotomy Collection / Unknown 09/14/2024 11:34 AM CDT 09/14/2024 11:34 AM CDT Nawaf Mancilla MD MICROBIOLOGY - GENERAL OR DERABLES Final Result [facility] [address] [place] [address], [place] * XR FOOT 3 OR MORE VIEWS LEFT (09/13/2024 3:28 PM CDT) Anatomical Region Laterality Modality LOWER EXTREMITY, foot Left Digital Ra diography 09/13/2024 4:25 PM CDT Impressions 09/13/2024 4:27 PM CDT IMPRESSION: No acute osseous abnormality. Narrative 09/13/2024 4:27 PM CDT EXAM DESCRIPTION: XR FOOT 3 OR MORE VIEWS LEFT REASON FOR STUDY: Fall 1 month ago, Pain, bruising, swelling to dorsal foot/metatarsals, worse at 4th and 5th metatarsals. Hx previous fracture - unknown location. Hx previous surgery - unknown specific surgery TECHNIQUE: 3 radiographic view(s) of the left foot . COMPARISON: None FINDINGS: No acute fracture is seen. There is osteoarthritis in the midfoot. There is an Achilles calcaneal enthesophyte. THIS IS AN ELECTRONICALLY VERIFIED FINAL REPORT 09/13/2024 4:25 PM - Electronically signed by Eulogio Baugh M.D. JR: Report ID: [id number] Reading Location: [id number] Procedure Note Eulogio Baugh MD - 09/13/2024 EXAM DESCRIPTION: XR FOOT 3 OR MORE VIEWS LEFT REASON FOR STUDY: Fall 1 month ago, Pain, bruising, swelling to dorsal foot/metatarsals, worse at 4th and 5th metatarsals. Hx previous fracture - unknown location. Hx previous surgery - unknown specific surgery TECHNIQUE: 3 radiographic view(s) of the left foot . COMPARISON: None FINDINGS: No acute fracture is seen. There is osteoarthritis in the midfoot. There is an Achilles calcaneal enthesophyte. THIS IS AN ELECTRONICALLY VERIFIED FINAL REPORT 09/13/2024 4:25 PM - Electronically signed by Eulogio Baugh M.D. JR: Report ID: [id number] Reading Location: [place] [address] IMPRESSION: No acute osseous abnormality. Nawaf Mancilla MD [facility] DIAGNOSTIC ORDERABLES Final Result * VITAMIN D, 25 HYDROXY TOTAL (09/13/2024 3:06 PM CDT) VITAMIN D, 25 HYDROX 28.5 ng/mL 09/13/2024 4:35 PM CDT [facility] Blood Venipuncture / Unknown 09/13/2024 3:06 PM CDT 09/13/2024 3:46 PM CDT Narrative [facility] - 09/13/2024 4:35 PM CDT Published reference ranges for Vitamin D vary depending on time and place and method of testing, and on patient's age, sex, ethnicity and levels of other measured analytes such as parathormone, calcium and phosphorus. The result should be evaluated in conjunction with clinical findings and suspicions. [facility] [employer] [facility] Clinical Practice Guidelines: Status Vitamin D levels (ng/mL) Deficient <=20 At risk of inadequacy 21-29 Sufficient 30-100 Centers of Disease Control and Prevention Guidelines: Status Vitamin D levels (ng/mL) Deficient <13 At risk of inadequacy 13-19 Sufficient 20-50 Possibly harmful >50 References: [employer], 2010 Dietary reference intakes for calcium and vitamin D. [place]: The National Academies Press. Peyton M, Tomy N, Aliya-Gaurav SHETTY, et al., Evaluation, treatment, and prevention of Vitamin D deficiency: an Endocrinology Clinical Practice Guideline. JCEM 2011 96: 7 0811-7649. Mc Guzman, Kian C, Ernestina D, et al., Vitamin D Status: [place], 3585-7983, [facility] data brief, no. 59, MD [place]: National Center for Health Statistics. 2011. Nawaf Mancilla MD CHEMISTRY ORDERABLES Amalia l Result Performing Organization Address City/[facility]/ZIP Co de Phone Number [facility] [address] [place] [address] * (ABNORMAL) HEMOGLOBIN A1C W/ ESTIMATED GLUCOSE (09/13/2024 3:06 PM CDT) HGB-A1C 6.4(H) 4.0 - 6.0 % 09/13/2024 4:03 PM CDT [facility] Est Average Glucose 137.0 mg/dL 09/13/2024 4:03 PM CDT [facility] Blood Venipuncture / Unknown 09/13/2024 3:06 PM CDT 09/13/2024 3:46 PM CDT Narrative [facility] - 09/13/2024 4:03 PM CDT HEMOGLOBIN A1C: DIABETIC PATIENTS: WELL-CONTROLLED: 6.2 - 7.0 INTERMEDIATE WELL-CONTROLLED: 7.0 - 9.0 POORLY-CONTROLLED: >9.0 Specimens containing greater than 5% of Hemoglobin F may result in lower than expected % HbA1C results. Nawaf Mancilla MD CHEMISTRY ORDERABLES Amalia l Result Performing Organization Address City/[facility] Co de Phone Number [facility] [address] [place] [address] * (ABNORMAL) CBC WITH AUTO DIFFERENTIAL (09/13/2024 3:06 PM CDT) WBC 9.90 4.00 - 12.00 10(3)/mcL 09/13/2024 3:48 PM CDT [facility] RBC 4.99 3.80 - 5.30 10(6)/mcL 09/13/2024 3:48 PM CDT [facility] HEMOGLOBIN (HGB) 15.4 12.0 - 15.8 g/dL 09/13/2024 3:48 PM CDT [facility] HEMATOCRIT (HCT) 46.8 36.0 - 47.0 % 09/13/2024 3:48 PM CDT [facility] MCV 93.8 82.0 - 96.0 fL 09/13/2024 3:48 PM CDT [facility] MCH 30.9 26.0 - 34.0 pg 09/13/2024 3:48 PM CDT [facility] MCHC 32.9 31.0 - 36.0 g/dL 09/13/2024 3:48 PM CDT [facility] PLATELET COUNT 272 140 - 440 10(3)/mcL 09/13/2024 3:48 PM CDT [facility] RDW 13.8 11.8 - 15.5 % 09/13/2024 3:48 PM CDT [facility] MPV 10.3 9.7 - 12.4 fL 09/13/2024 3:48 PM CDT [facility] NEUTROPHILS 56.2 47.0 - 73.0 % 09/13/2024 3:48 PM CDT [facility] LYMPHOCYTES 33.4 18.0 - 42.0 % 09/13/2024 3:48 PM CDT [facility] MONOCYTES 5.8 4.0 - 12.0 % 09/13/2024 3:48 PM CDT [facility] EOSINOPHILS 3.5 0.0 - 5.0 % 09/13/2024 3:48 PM CDT [facility] BASOPHILS 1.1(H) 0.0 - 1.0 % 09/13/2024 3:48 PM CDT [facility] ABSOLUTE NEUTROPHILS 5.56 1.60 - 7.70 10(3)/mcL 09/13/2024 3:48 PM CDT [facility] ABSOLUTE LYMPHOCYTES 3.31(H) 1.30 - 3.20 10(3)/mcL 09/13/2024 3:48 PM CDT [facility] ABSOLUTE MONOCYTES 0.57 0.20 - 1.00 10(3)/mcL 09/13/2024 3:48 PM CDT [facility] ABSOLUTE EOSINOPHIL 0.35 0.00 - 0.40 10(3)/mcL 09/13/2024 3:48 PM CDT [facility] ABSOLUTE BASOPHILS 0.11(H) 0.00 - 0.10 10(3)/mcL 09/13/2024 3:48 PM CDT [facility] NRBC PER 100 WBC 0 09/14/19 3:48 PM CDT [facility] Blood Venipuncture / Unknown 09/13/2024 3:06 PM CDT 09/13/2024 3:46 PM CDT Nawaf Mancilla MD HEMATOLOGY ORDERABLES Fin al Result Performing Organization Address City/[facility]/ZIP Co de Phone Number [facility] [address] [place] [address] * VITAMIN B12 (09/13/2024 3:06 PM CDT) VITAMIN B12 424 213 - 816 pg/mL 09/13/2024 4:35 PM CDT [facility] Blood Venipuncture / Unknown 09/13/2024 3:06 PM CDT 09/13/2024 3:46 PM CDT Nawaf Mancilla MD CHEMISTRY ORDERABLES Amalia l Result [facility] [address] [place] [address] * THYROID STIMULATING HORMONE (TSH) (09/13/2024 3:06 PM CDT) TSH 1.339 0.300 - 5.000 mIU/L 09/13/2024 4:29 PM CDT [facility] Blood Venipuncture / Unknown 09/13/2024 3:06 PM CDT 09/13/2024 3:46 PM CDT Nawaf Mancilla MD CHEMISTRY ORDERABLES Amalia l Result [facility] [address] [place] [address] * LIPID PANEL (09/13/2024 3:06 PM CDT) CHOLESTEROL 191 <200 mg/dL 09/13/2024 4:12 PM CDT [facility] TRIGLYCERIDES 127 <150 mg/dL 09/13/2024 4:12 PM CDT [facility] HDL CHOLESTEROL 76 >40 mg/dL 4:12 PM CDT [facility] LDL 90 <130 mg/dL 09/13/2024 4:12 PM CDT [facility] VLDL 25 10 - 50 mg/dL 09/13/2024 4:12 PM CDT [facility] CHOL/HDL RATIO 2.5 0.0 - 4.4 09/13/2024 4:12 PM CDT [facility] NON-HDL CHOLESTEROL 115 <130 mg/dL 09/13/2024 4:12 PM CDT [facility] IS THE PATIENT REQUIRED TO BE FASTING? Yes 09/13/2024 4:12 PM CDT [facility] HAS THE PATIENT BEEN FASTING? Yes 09/13/2024 4:12 PM CDT [facility] Blood Venipuncture / Unknown 09/13/2024 3:06 PM CDT 09/13/2024 3:46 PM CDT Nawaf Mancilla MD CHEMISTRY ORDERABLES Amalia l Result Performing Organization Address City/[facility]/ZIP Co de Phone Number [facility] [address] [place] [address] * (ABNORMAL) CMP (COMPREHENSIVE METABOLIC PANEL) (09/13/2024 3:06 PM CDT) SODIUM 133(L) 136 - 145 mmol/L 09/13/2024 4:12 PM CDT [facility] POTASSIUM 4.0 3.5 - 5.1 mmol/L 09/13/2024 4:12 PM CDT [facility] CHLORIDE 101 98 - 107 mmol/L 09/13/2024 4:12 PM CDT [facility] CO2, VENOUS 22 22 - 30 mmol/L 09/13/2024 4:12 PM CDT [facility] ANION GAP 14.0 <18.0 mmol/L 09/13/2024 4:12 PM CDT [facility] GLUCOSE 140(H) 70 - 99 mg/dL 09/13/2024 4:12 PM CDT [facility] BUN 9(L) 10 - 20 mg/dL 09/13/2024 4:12 PM CDT [facility] CREATININE, BLOOD 0.82 0.60 - 1.00 mg/dL 09/13/2024 4:12 PM CDT [facility] BUN/CREATININE RATIO 11(L) 12 - 20 ratio 09/13/2024 4:12 PM CDT [facility] TOTAL PROTEIN 7.2 6.0 - 8.0 g/dL 09/13/2024 4:12 PM CDT [facility] ALBUMIN 4.4 3.5 - 5.0 g/dL 09/13/2024 4:12 PM CDT [facility] A/G RATIO 1.6 1.0 - 2.2 09/13/2024 4:12 PM CDT [facility] CALCIUM 9.6 8.7 - 10.5 mg/dL 09/13/2024 4:12 PM CDT [facility] T BILI 0.2 0.2 - 1.2 mg/dL 09/13/2024 4:12 PM CDT [facility] SGOT (AST) 27 <43 U/L 09/13/2024 4:12 PM CDT [facility] SGPT (ALT) 25 <56 U/L 09/13/2024 4:12 PM CDT [facility] ALKALINE PHOSPHATASE 97 40 - 150 U/L 09/13/2024 4:12 PM CDT [facility] IS THE PATIENT REQUIRED TO BE FASTING? No 09/13/2024 4:12 PM CDT [facility] GFR, ESTIMATED >60 >=60 09/13/2024 4:12 PM CDT [facility] Comment: Creatinine Clearance is the preferred criteria for selecting drug dose adjustments in renally impaired patients. The GFR is provided as additional pertinent clinical information. GFR is reported in mL/min/1.73 sq m. Calculation based on the Chronic Kidney Disease Epidemiology Collaboration (CKD- EPI) equation refit without adjustment for race. GFR, EST. >60 >=60 025 4:12 PM CDT [facility] GFR, EST. NONAFRICAN >60 >=60 09/13/2024 4:12 PM CDT [facility] Blood Venipuncture / Unknown 09/13/2024 3:06 PM CDT 09/13/2024 3:46 PM CDT Nawaf Mancilla MD CHEMISTRY ORDERABLES Amalia l Result [facility] [address] [place] [address] * (ABNORMAL) POCT UA AUTOMATED W/O MICRO (09/13/2024 2:09 PM CDT) POC UA SPECIFIC GRAVITY 1.020 URINE PH 5.0 5.0 - 9.0 POC URINE LEUKOCYTES Negative Negative Raquel/uL POC URINE NITRITE Negative Negative POC URINE PROTEIN Negative Negative mg/dL POC URINE GLUCOSE Norm Negative, Norm mg/dL POC URINE KETONE Negative Negative mg/dL POC URINE UROBILINOGEN Norm Norm, 0.2 E.U./dL (mg/dL), 1 E.U./dL (mg/dL) POC URINE BILIRUBIN Negative Negative mg/dL POC URINE BLOOD INSTRUMENT TR(A) Negative Adithya/uL POC URINE COLOR Yellow POC URINE CLARITY Clear Urine 09/13/2024 2:09 PM CDT Nawaf Mancilla MD POINT OF CARE TESTING (ANTOINETTE BROWN) Final Result * MRI LEFT SHOULDER WO CONTRAST (09/11/2024 12:00 AM CDT) Anatomical Region Laterality Modality UPPER EXTREMITY, shoulder Left Other 09/11/2024 Joni Ortega MD IMG MR ORDERABLES Final Resul t * HEPATITIS PANEL ACUTE (AHP) (02/23/2022 2:36 PM CDT) HEPATITIS A IGM ANTIBODY NON DETECTED NON DETECTED [address] B 02/23/2022 10:26 PM CDT [facility] Comment: IGM Antibodies to HAV not detected. Does not exclude early acute or recovered HAV infection. HEP B CORE AB (IGM) NON DETECTED NON DETECTED [address] B 02/23/2022 10:26 PM CDT [facility] Comment:IGM anti-HBC not det ected. Does not exclude the possibility of exposure to or infection with HBV. HEPATITIS B SURFACE ANTIGEN NON DETECTED NON DETECTED [address] B 02/23/2022 10:26 PM CDT [facility] Comment:A nonreactive test r esult does not exclude the possibility of exposure to or infection with Hepatitis B virus. A nonreactive test result in individuals with prior exposure to hepatitis B may be due to antigen levels below the detection limit of this assay or lack of antigen reactivity to the antibodies in this assay. hepatitis C antibody 0.08 <1 S/CO [facility] ARCH [id number] 02/23/2022 10:26 PM CDT [facility] Comment: Signal/Cutoff ratio < 0.79 is Nondetected Signal/Cutoff ratio 0.80-0.99 is Grayzone Signal/Cutoff ratio > 0.99 is Detected Supplemental assays are recommended if signal/cutoff ratio is >/=1.00. Signal/cutoff ratio result >/= 5.00 is 97% predictive of positivity for recombinant immunoblot assay (RIBA) and will be reported to the [place] Department of Public Health as required. Blood Venipuncture / Unknown 02/23/2022 2:36 PM CDT 02/23/2022 2:36 PM CDT us Joni Ortega MD HEMATOLOGY ORDERABLES Final R esult [facility] [address] [place] [address], * POCT STOOL, OCCULT BLOOD, DIAGNOSTIC (10/04/2018 8:50 AM CDT) OCCULT BLOOD, STOOL Negative Negative, Other POC HEMOCULT CONTROL Pulp Plant Supervisor Pass 10/04/2018 8:50 AM CDT Chantal Case CREW TRUCK DRIVER, WATERMELON INSPECTOR POINT OF CARE TESTIN G (MANUAL) Final Result * LIZZETH DIAG BILATERAL DIGITAL W CAD W ARTIS (11/29/2017 10:24 AM CDT) Anatomical Region Laterality Modality breast Bilateral Mammography 11/29/2017 9:49 AM CDT Narrative 11/29/2017 12:20 PM CDT - LIZZETH DIAG BILATERAL DIGITAL W CAD W ARTIS BILATERAL DIGITAL DIAGNOSTIC MAMMOGRAM 3D/2D WITH CAD WITH MEDIOLATERAL OBLIQUE CRANIOCAUDAL: 11/29/2017 The study was acquired using digital technology and interpreted from soft copy. Current study was also evaluated with ICAD version 7.2. CLINICAL: Diagnostic study. Palpable lumps bilaterally with pain upper outer quadrant. No family history of breast cancer. Patient has history of leukemia diagnosed 2010. Exam performed in chair. Patient unsteady. Chronic green in color bilateral nipple discharge. COMPARISONS: Comparison is made to exams dated: 12/25/2008, 05/29/2013, and 05/01/2008 [facility]. BREAST TISSUE: The tissue of both breasts is heterogeneously dense. This may lower the sensitivity of mammography. FINDINGS: There is no abnormality seen in either breast to correspond with the palpable lump indicated by a triangular marker in each upper outer quadrant. There is stable benign nodulularity in both breasts. There also are benign calcifications in both breasts. No significant masses, calcifications, or other findings are seen in either breast. IMPRESSION: BI-RAD 0 ADDITIONAL IMAGING EVALUATION NEEDED There is no abnormality seen in either breast to correspond with the palpable lump. Ultrasound is performed. Electronically signed by: Chrissy Carter M.D. pw/:11/29/2017 10:52:53 School Boat Driver: Padma Rodriguez(Gil), [facility] Reading location: [facility] BI-RADS: 0 Additional Imaging Evaluation Needed Procedure Note Chrissy Carter MD - 11/29/2017 - LIZZETH DIAG BILATERAL DIGITAL W CAD W ARTIS BILATERAL DIGITAL DIAGNOSTIC MAMMOGRAM 3D/2D WITH CAD WITH MEDIOLATERAL OBLIQUE CRANIOCAUDAL: 11/29/2017 The study was acquired using digital technology and interpreted from soft copy. Current study was also evaluated with ICAD version 7.2. CLINICAL: Diagnostic study. Palpable lumps bilaterally with pain upper outer quadrant. No family history of breast cancer. Patient has history of leukemia diagnosed 2010. Exam performed in chair. Patient unsteady. Chronic green in color bilateral nipple discharge. COMPARISONS: Comparison is made to exams dated: 12/25/2008, 05/29/2013, and 05/01/2008 [facility]. BREAST TISSUE: The tissue of both breasts is heterogeneously dense. This may lower the sensitivity of mammography. FINDINGS: There is no abnormality seen in either breast to correspond with the palpable lump indicated by a triangular marker in each upper outer quadrant. There is stable benign nodulularity in both breasts. There also are benign calcifications in both breasts. No significant masses, calcifications, or other findings are seen in either breast. IMPRESSION: BI-RAD 0 ADDITIONAL IMAGING EVALUATION NEEDED There is no abnormality seen in either breast to correspond with the palpable lump. Ultrasound is performed. Electronically signed by: Chrissy Carter M.D. pw/:11/29/2017 10:52:53 School Boat Driver: Padma Rodriguez(Gil), [facility] Reading location: [facility] BI-RADS: 0 Additional Imaging Evaluation Needed us Hill Montano MD IMG MAMMO ORDERABLES Amalia l Result from Last 3 Months or Most Recently Relevant to Health Maintenance Insurance MEDICARE C [facility] MEDICAID [facility] Advance Directives * Full Code (Latest Code Status on File) Date Activated Date Inactivated Comments 07/04/2016 4:32 PM 07/04/2016 11:21 PM CPR-Full Moriah tment: FULL ARREST: Attempt Resuscitation/CPR wit intubation and mechanical ventilation. PRE-ARREST: Use entire range of life support measures to stabilize the patient. Care Teams Funeral Home Makeup Artist Relationship Specialty Start Date End Date Joni Ortega MD #[address] [address] PCP - General Family Medicine 12/26/20 Marvin Shaikh MD [address] [place] [address] Consulting Physician Oncology 07/22/17 John Paul Sharif MD [address] [place] [address] Consulting Physician Orthopaedic Surgery 07/22/17 Joni Manning MD [address] [facility] [address] [place] [address] Consulting Physician Neurology 02/15/18 Mark Bettencourt DO [address] [facility] [address] [place] [address] Gastroenterology 06/07/18 Gabrielle Jones MD #2 [facility] [address] [place] [address] Consulting Physician Orthopaedic Surgery 09/17/24
--- OUTSIDE RECORDS SUMMARY | 2024-10-23 17:43 | XMS_ITS | Encounter Summary ---
Author Organization [facility] Address [address] [place] [address] Phone Care Team Providers Care Web Site Specialist Name Role Phone Marvin Shaikh MD Unavailable [phone] John Paul Sharif MD Unavailable [phone] Joni Manning MD Unavailable [phone] Mark Bettencourt DO Unavailable [phone] Joni Ortega MD Primary Care Provider [phone] Gabrielle Jones MD Unavailable Reason for Visit * Reason Onset Date Comments Sinus Problem 10/22/2024 Encounter Details Date Type Department Care Team (Late st Contact Info) Description 10/22/2024 [facility] [address] [place] [address] Joni Ortega MD #[address] [address] Sinus Problem Social History Tobacco Use Types Packs/Day [...] encounter Miscellaneous Notes * Telephone Encounter - Shonna Walsh RN - 10/23/2024 9:46 AM CDT Situation: Patient calling back Background: Patient contacting PCP office. Assessment: Patient calling office back. Recommendation: Notified of notes, verbalized understanding. * Telephone Encounter - Katina Valle RN - 10/23/2024 9:39 AM CDT LVM for patient to call back. * Telephone Encounter - Joni Ortega MD - 10/22/2024 4:20 PM CDT Please call. Will call in. If no better in next 1-2 weeks, call or make ov. Call sooner if gets worse. * Telephone Encounter - Jennifer Agee RN - 10/22/2024 3:13 PM CDT SITUATION: sinus pressure BACKGROUND: Patient calling PCP office. Patient states symptoms started 3 days ago. Patient states she gets bad sinus infections, but has not had one for quite a while. ASSESSMENT: Symptom Description / Location as patient states below: Sinus pain around her nose and forehead. Runny nose with clear nasal drainage A lot of snot Back of her throat is sore from drainage Denies any other symptoms at this time. Pain: 7/10, constant, feels miserable and it's a sinus infection Fever: Denies fever. Treatment / Response: sudafed with no relief. RECOMMENDATION: Caller agreeable to disposition: home care, but is requesting antibiotic to be prescribed [place]. Please advise. Patient would like call back with provider response. Care advice provided per triage guideline. Caller verbalized understanding. Discussed utilizing [employer] to: discuss if they would prefer a Chooslyhart message or phone call response - See care advice and disposition for Guideline. First positive answer recorded, all responses to prior questions were negative. If symptoms increase, change or if new symptoms develop, call your health care provider or call back. Recommendations were based on caller information and is not a diagnosis. Verified and reviewed all triage information with caller. Reason for Disposition Sinus congestion as part of a cold, present < 10 days Protocols used: Sinus Pain or [id number] documented in this encounter Plan of Treatment Upcoming Encounters Date Type Department Care Team (Late st Contact Info) Description 10/29/2024 1:30 PM CDT Office [facility] - [place] [address] [place] [address] Gabrilele Jones MD #2 [facility] [address] [place] [address] documented as of this encounter Visit Diagnoses Not on filedocumented in this encounter Additional Health Concerns Assessment Noted Time PHQ-9 Depression Total Score: 0 09/14/19 25 2:00 PM CDT documented as of this encounter Care Teams Web Site Specialist Relationship Specialty Start Date End Date Joni Ortega MD #2 [facility] [address] [place] [address] PCP - General Family Medicine 12/26/20 Marvin Shaikh MD [address] [place] [address] Consulting Physician Oncology 07/22/17 John Paul Sharif MD [address] [place] [address] Consulting Physician Orthopaedic Surgery 07/22/17 Joni Manning MD 4 [facility] [address] [place] [address] Consulting Physician Neurology 02/15/18 Mark Bettencourt DO 4 [facility] [address] [place] [address] Gastroenterology 06/07/18 Gabrielle Jones MD #2 [facility] [address] [address] [place] [address] Consulting Physician Orthopaedic Surgery 09/17/24 documented as of this encounter
--- OUTSIDE RECORDS SUMMARY | 2024-10-23 17:43 | XMS_ITS | Encounter Summary ---
Author Organization [facility] Address [address] [place] [address] Phone Care Team Providers Care Telecommunication Systems Designer Name Role Phone Marvin Shaikh MD Unavailable [phone] John Paul Sharif MD Unavailable [phone] Joni Manning MD Unavailable Mark Bettencourt DO Unavailable [phone] Joni Ortega MD Primary Care Provider Gabrielle Jones MD Unavailable Reason for Visit * Reason Comments Medication Refill Encounter Details Date Type Department Care Team (Late st Contact Info) Description 2021 Refill [facility] - Family Medicine [facility] #[address] [place] [address] Joni Ortega MD #[address] [address] Medication Refill Social History Tobacco Use Types Packs/Day Years Used Date Smoking Tobacco: Never Smokeless Tobacco: Never Alcohol Use Standard Drinks/Week Comments No 0 (1 standard drink = 0.6 oz pur e alcohol) PHQ-2 Answer Date Recorded Total Score - Questions 1-9 0 10/25 Sexually Active Control Partners Comments Never Comments No Sex and Gender Information Value Date Recorded Sex Assigned at Not on file Legal Sex Female 9:14 PM CDT Gender Identity Not on file Sexual Orientation Not on file 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 No / Unsure 11/11/2021 11:57 AM CDT documented as of this encounter Miscellaneous Notes * Telephone Encounter - Alyse Herbert RN - 12/08/2021 2:52 PM CDT Name from pharmacy: AMITRIPTYLINE 25MG TABLETS Will file in chart as: amitriptyline (ELAVIL) 25 MG Tablet The original prescription was discontinued on 11/11/2021 by Joni Ortega MD documented in this encounter Plan of Treatment Upcoming Encounters Date Type Department Care Team (Late st Contact Info) Description 10/29/2024 1:30 PM CDT Office Visit [facility] - Orthopedic Surgery [facility] [address] [place] [address] Gabrielle Jones MD #2 [facility] [address] [place] [address] documented as of this encounter Visit Diagnoses Diagnosis Anxiety Anxiety state, unspecified documented in this encounter Additional Health Concerns Assessment Noted Time PHQ-9 Depression Total Score: 0 11/12/19 22 12:00 PM CDT documented as of this encounter Care Teams Telecommunication Systems Designer Relationship Specialty Start Date End Date Joni Ortega MD #2 [facility] [address] [place] [address] PCP - General Family Medicine 12/26/20 Marvin Shaikh MD [address] [place] [address] Consulting Physician Oncology 07/22/17 John Paul Sahrif MD [address] [place] [address] Consulting Physician Orthopaedic Surgery 07/22/17 Joni Manning MD [address] [facility] [address] [place] [address] Consulting Physician Neurology 02/15/18 Mark Bettencourt DO [address] [facility] [address] [place] [address] Gastroenterology 06/07/18 Gabrielle Jones MD #2 [facility] [address] [place] [address] Consulting Physician Orthopaedic Surgery 09/17/24 documented as of this encounter
--- OUTSIDE RECORDS SUMMARY | 2024-10-23 17:43 | XMS_ITS | Encounter Summary ---
Author Organization [facility] Address [address] [place] [address] Phone Care Team Providers Care Belt And Link Shop Supervisor Name Role Phone Marvin Shaikh MD Unavailable [phone] John Paul Sharif MD Unavailable [phone] Joni Manning MD Unavailable [phone] Mark Bettencourt DO Unavailable [phone] Joni Ortega MD Primary Care Provider [phone] Gabrielle Jones MD Unavailable Reason for Visit * Reason Onset Date Comments Referral 02/11/2021 Encounter Details Date Type Department Care Team (Late st Contact Info) Description 02/11/2021 Telephone [facility] [place] #[address] [place] [address] Joni Ortega MD #[address] [address] Referral Social History Tobacco Use Types Packs/Day Years Used Date Smoking Tobacco: Never Smokeless Tobacco: Never Alcohol Use Standard Drinks/Week Comments No 0 (1 standard drink = 0.6 oz pur e alcohol) PHQ-2 Answer Date Recorded Total Score - Questions 1-9 0 11/2019 Sexually Active Control Partners Comments Never Comments [...] Exposure Response Date Recorded In the last month, have you been in contact with someone who was confirmed or suspected to have Coronavirus / COVID-19? No / Unsure 02/11/2021 11:16 AM CDT documented as of this encounter Miscellaneous Notes * Telephone Encounter - Hill Olson APN, CNP - 02/11/2021 1:10 PM CDT The referral was entered. The referral center will call her. * Telephone Encounter - Albina Brown - 02/11/2021 11:51 AM CDT Patient states that she saw Hill Olson today and she needs a referral to psychiatry but he walked out of the room and she did not get her the referral. Please call patient. [phone] documented in this encounter Plan of Treatment Upcoming Encounters Date Type Department Care Team (Late st Contact Info) Description 10/29/2024 1:30 PM CDT Office Visit [facility] #2 [place] [address] Gabrielle Jones MD #2 [facility] [address] [place] [address] documented as of this encounter Visit Diagnoses Not on filedocumented in this encounter Additional Health Concerns Assessment Noted Time PHQ-9 Depression Total Score: 0 05/02/20 20 10:00 AM GUEST ROOM ATTENDANT documented as of this encounter Care Teams Belt And Link Shop Supervisor Relationship Specialty Start Date End Date Joni Ortega MD #2 [facility] [address] [place] [address] PCP - General Family Medicine 12/26/20 Marvin Shaikh MD [address] [place] [address] Consulting Physician Oncology 07/22/17 John Paul Sharif MD [address] [place] [address] Consulting Physician Orthopaedic Surgery 07/22/17 Joni Manning MD 4 [facility] [address] [place] [address] Consulting Physician Neurology 02/15/18 Mark Bettencourt DO 4 [facility] [address] [place] [address] Gastroenterology 06/07/18 Gabrielle Jones MD #2 [facility] [address] [place] [address] Consulting Physician Orthopaedic Surgery 09/17/24 documented as of this encounter
--- OUTSIDE RECORDS SUMMARY | 2024-10-23 17:43 | XMS_ITS | Encounter Summary ---
Author Organization [facility] Address [address] [place] [address] Phone Care Team Providers Care Contact Center Representative Name Role Phone Marvin Shaikh MD Unavailable [phone] John Paul Sharif MD Unavailable [phone] Joni Manning MD Unavailable [phone] Joni Ortega MD Primary Care Provider [phone] Mark Bettencourt DO Unavailable [phone] Garrison Martinez MD Primary Care Provider [phone] Joni Ortega MD Primary Care Provider [phone] Gabrielle Jones MD Unavailable Reason for Visit * Reason Onset Date Comments Other 07/10/2020 Encounter Details Date Type Department Care Team (Late st Contact Info) Description 07/10/2020 Telephone [facility] [address] [place] [address] Joni Ortega MD #[address] [address] Other Social History Tobacco Use Types Packs/Day Years Used Date Smoking Tobacco: Never Smokeless Tobacco: Never Alcohol Use Standard Drinks/Week Comments No 0 (1 standard drink = 0.6 oz pur e alcohol) PHQ-2 Answer Date Recorded Total Score - Questions 1-9 0 1111/2019 Sexually Active Control Partners Comments Never Comments [...] encounter Miscellaneous Notes * Telephone Encounter - Anna Andres RN - 07/10/2020 11:21 AM BUTTER PRINTER Patient calling stating that she has sinus infections every year and wants to know what medication she normally gets. Per review of chart last year she received Amoxicillin. Gave patient this information. Patient did not want to be triaged just wanted the information. She ended call. ER PRINTER documented in this encounter Plan of Treatment Upcoming Encounters Date Type Department Care Team (Late st Contact Info) Description 10/29/2024 1:30 PM CDT Office Visit [facility] - [facility] #[address] [place] [address] Gabrielle Jones MD #2 [facility] [address] [place] [address] documented as of this encounter Visit Diagnoses Not on filedocumented in this encounter Additional Health Concerns Assessment Noted Time PHQ-9 Depression Total Score: 0 05/02/20 20 10:00 AM BUTTER PRINTER documented as of this encounter Care Teams Contact Center Representative Relationship Specialty Start Date End Date Joni Ortega MD #2 [facility] [address] [place] [address] PCP - General Family Medicine 03/07/18 12/23/20 Garrison Martinez MD #2 [facility] [address] [place] [address] PCP - General Family Medicine 12/24/20 12/25/20 Joni Ortega MD #[address] [facility] [address] [place] [address] PCP - General Family Medicine 12/26/20 Marvin Shaikh MD [address] [place] [address] Consulting Physician Oncology 07/22/17 John Paul Sharif MD [address] [facility] [address] [place] [address] Consulting Physician Orthopaedic Surgery 07/22/17 Joni Manning MD 4 [facility] [address] [place] [address] Consulting Physician Neurology 02/15/18 Mark Bettencourt DO #[address] [facility] [address] [place] [address] Gastroenterology 06/07/18 Gabrielle Jones MD #[address] [facility] [address] [place] [address] Consulting Physician Orthopaedic Surgery 09/17/24 documented as of this encounter
--- OUTSIDE RECORDS SUMMARY | 2024-10-23 17:43 | XMS_ITS | Encounter Summary ---
Author Organization [facility] Address [address] [place] [address] Phone Care Team Providers Care Rack Loader Name Role Phone Marvin Shaikh MD Unavailable [phone] John Paul Sharif MD Unavailable [phone] Joni Manning MD Unavailable [phone] Mark Bettencourt DO Unavailable [phone] Joni Ortega MD Primary Care Provider [phone] Gabrielle Jones MD Unavailable Encounter Details Date Type Department Care Team (Late st Contact Info) Description 09/21/2024 Results Follow-Up [facility] - Family [facility] [address] [place] [id number] Katina Valle RN CO MRI LEFT SHOULDER WO CONTRAST Social History Tobacco Use Types Packs/Day Years [...] encounter Miscellaneous Notes * Telephone Encounter - Katina Valle RN - 09/21/2024 4:04 PM CDT ----- Message from Vonda Ortega sent at 09/13/2024 8:41 AM CDT ----- Okay topend ----- Message ----- From: Elliot, Scan Result Sent: 09/13/2024 8:24 AM CDT To: Joni Ortega MD documented in this encounter Plan of Treatment Upcoming Encounters Date Type Department Care Team (Late st Contact Info) Description 10/29/2024 1:30 PM CDT Office Visit [facility] - Orthopedic Surgery - [place] [address] [place] [address] Gabrielle Jones MD #[address] [address] documented as of this encounter Visit Diagnoses Not on filedocumented in this encounter Additional Health Concerns Assessment Noted Time PHQ-9 Depression Total Score: 0 09/14/19 25 2:00 PM CDT documented as of this encounter Care Teams Rack Loader Relationship Specialty Start Date End Date Joni Ortega MD #2 [facility] [address] [place] [address] PCP - General Family Medicine 12/26/20 Marvin Shaikh MD [address] [place] [address] Consulting Physician Oncology 07/22/17 John Paul Sharif MD [address] [place] [address] [place] [address] Consulting Physician Orthopaedic Surgery 07/22/17 Joni Manning MD [address] [place] [address] Consulting Physician Neurology 02/15/18 Mark Bettencourt DO [address] [place] [address] Gastroenterology 06/07/18 Gabrielle Jones MD #[address] [address] Consulting Physician Orthopaedic Surgery 09/17/24 documented as of this encounter
--- OUTSIDE RECORDS SUMMARY | 2024-10-23 17:43 | XMS_ITS | Encounter Summary ---
Author Organization [facility] Address [address] [place] [address] Phone Care Team Providers Care Strip Mine Supervisor Name Role Phone Marvin Shaikh MD Unavailable John Paul Sharif MD Unavailable [phone] Joni Manning MD Unavailable [phone] Mark Bettencourt DO Unavailable [phone] Joni Ortega MD Primary Care Provider [phone] Gabrielle Jones MD Unavailable Reason for Visit * Reason Onset Date Comments Referral 01/12/2023 External Orthope dic Referral Encounter Details Date Type Department Care Team (Late st Contact Info) Description 01/12/2023 Telephone [facility] [address] [place] [address] Joni Ortega MD #[address] [address] Referral (External Orthopedic Referral) Social History Tobacco Use Types Packs/Day Years [...] encounter Miscellaneous Notes * Telephone Encounter - Nupur Ward - 01/12/2023 8:45 AM CDT SITUATION: [facility] Referral Services is requesting provider review for External Orthopedic Referral. BACKGROUND: Referral unable to be processed. ASSESSMENT: Request for provider review due to the following reason(s): Patient refusal or unable to contact patient. RECOMMENDATION: Based on the above information the provider has the following option(s): Multiple attempts have been made to contact patient about referral with no response. No further attempts will be made. Referral closed. documented in this encounter Plan of Treatment Upcoming Encounters Date Type Department Care Team (Late st Contact Info) Description 10/29/2024 1:30 PM CDT Office Visit [facility] - Orthopedic Surgery [facility] [address] [place] [address] Gabrielle Jones MD #2 [facility] [address] [place] [address] documented as of this encounter Visit Diagnoses Not on filedocumented in this encounter Additional Health Concerns Assessment Noted Time PHQ-9 Depression Total Score: 14 023 10:00 AM CDT documented as of this encounter Care Teams Strip Mine Supervisor Relationship Specialty Start Date End Date Joni Ortega MD #2 [facility] [address] [place] [address] PCP - General Family Medicine 12/26/20 Marvin Shaikh MD [address] [place] [address] Consulting Physician Oncology 07/22/17 John Paul Sharif MD [address] [place] [address] Consulting Physician Orthopaedic Surgery 07/22/17 Joni Manning MD 4 [facility] [address] [place] [address] Consulting Physician Neurology 02/15/18 Mark Bettencourt DO 4 [facility] [address] [place] [address] Gastroenterology 06/07/18 Gabrielle Jones MD #2 [facility] [address] [place] [address] Consulting Physician Orthopaedic Surgery 09/17/24 documented as of this encounter
--- OUTSIDE RECORDS SUMMARY | 2024-10-23 17:43 | XMS_ITS | Encounter Summary ---
Author Organization [facility] Address [address] [place] [address] Phone Care Team Providers Care Painter Decorator Name Role Phone Marvin Shaikh MD Unavailable [phone] John Paul Sharif MD Unavailable [phone] Joni Manning MD Unavailable [phone] Joni Ortega MD Primary Care Provider [phone] Mark Bettencourt DO Unavailable [phone] Garrison Martinez MD Primary Care Provider [phone] Joni Ortega MD Primary Care Provider [phone] Gabrielle Jones MD Unavailable Reason for Visit * Reason Onset Date Comments ED Follow-up 11/03/2020 [place] for right knee pain Results 11/03/2020 knee xray Encounter Details Date Type Department Care Team (Late st Contact Info) Description 11/03/2020 Telephone [facility] - [facility] [place] [address] [place] [address] Joni Ortega MD #[address] [address] ED Follow-up ([place] 11/01/20 for right knee pain); Results (knee xray) Social History Tobacco Use Types Packs/Day Years [...] Miscellaneous Notes * Telephone Encounter - Alyse Hernandes RN - 11/03/2020 1:54 PM CDT Patient calling. Was at [facility] ER on 11/01/20 for right knee pain. Thinks maybe she twisted it. She had an xray done and was told it would be sent to her PCP. Patient was hard to understand as she kept changing the date she was at ED and which xray she was asking about. Very distracted. She is asking for the results and if MRI is going to be ordered. Advised will ask office if they received the right knee xray. Will need f/up in office and patient refused at first, but then agreed, but will only come at certain times. Only time that worked for her is with Ch[facility]al 11/07/20 at 1115. documented in this encounter Plan of Treatment Upcoming Encounters Date Type Department Care Team (Late st Contact Info) Description 10/29/2024 1:30 PM CDT Office Visit [facility] - Orthopedic Surgery - [place] #[address] [place] [address] Gabrielle Jones MD #[address] [address] documented as of this encounter Visit Diagnoses Not on filedocumented in this encounter Additional Health Concerns Assessment Noted Time PHQ-9 Depression Total Score: 0 05/02/20 20 10:00 AM [facility] GIRL documented as of this encounter Care Teams Painter Decorator Relationship Specialty Start Date End Date Joni Ortega MD #[address] [address] PCP - General Family Medicine 03/07/18 12/23/20 Garrison Martinez MD #[address] [address] PCP - General Family Medicine 12/24/20 12/25/20 Joni Ortega MD #[address] [address] PCP - General Family Medicine 12/26/20 Marvin Shaikh MD [address] [place] [address] Consulting Physician Oncology 07/22/17 John Paul Sharif MD [address] [facility] [address] [place] [address] Consulting Physician Orthopaedic Surgery 07/22/17 Joni Manning MD 4 [facility] [address] [place] [address] Consulting Physician Neurology 02/15/18 Mark Bettencourt DO #[address] [address] Gastroenterology 06/07/18 Gabrielle Jones MD #[address] [address] Consulting Physician Orthopaedic Surgery 09/17/24 documented as of this encounter
--- OUTSIDE RECORDS SUMMARY | 2024-10-23 17:43 | XMS_ITS | Data Portability ---
Author Organization [facility], [facility] Address [address] [place] [id number] Assessment Encounter Date Assessment Date Assessment LastModified by Organization Details LastModified Time 12/28/2019 12/28/2019 On 12/28/19 this patient was evaluated via teleconference visit for follow-up on her chronic pain conditions, as well as for medication management and renewal. Osteoporosis: Patient has suffered from multiple fragility fractures with multiple revisions in both hands and feet, which has left her with difficulty in utilizing both hands and as well as ambulating properly. Around 09/2019 patient sustained a fall and a compression fracture of her T12. Thoracic spine MRI (11/08/19) which reports: 20% compression of the superior endplate of T12 with bony edema. Mild degenerative changes throughout the thoracic spine. Osteophyte formation along the anterior right side of the vertebral body and plates. Minimal central or foraminal stenosis. Lumbar spine MRI (11/08/19), which reports: L1-2: compression fracture of the superior endplate of L2. 20% loss of height. Slide retropulsion of the posterior corner. L2-3: mild posterior element hypertrophy. L3-4: slight loss of disc height. Circumferential disc bulging. L4-5: severe loss of disc height. Moderate central canal and foraminal stenosis. Bulging disc. Disc bulging. Moderate facet hypertrophy. L5-S1: mild disc height loss. Lower Back Pain: Patient reports chronic, constant, moderate, radiating right-sided lower back pain to her hip area. She describes the pain as aching and stabbing at times. Provoking factors include any type of physical activity, as well as sitting in one position too long. Relieving factors include pain medication regimen and resting. She utilizes a walker for ambulation assistance. Fibromyalgia: She is currently noticing more generalized muscle aches and pains. She has failed treatment on pregabalin, gabapentin, amitriptyline, and cymbalta. Medication Management: In terms of medication management, the patient continues to utilize oxycodone 10/325 mg up to four times per day which is providing her with tremendous pain relief at this time and no side effects. Plan: 1. Renew oxycodone. 2. Complete DEXA scan as ordered. 3. Continue to monitor her condition. The pain control continues to be fairly good, the activities of daily living are easier and improved, and is not exhibiting any side effects and not showing any aberrant behavior. Based on the above I will renew the pain medication the patient is receiving and I will continue to monitor the patient's condition. Patient continues to manage their pain with prescription opiates/controlled substances and understands the risks and precautions associated. Discussed issues of addiction, tolerance and dependency. PDMP was checked prior to prescribing. Due to the current Coronavirus (COVID-19) epidemic, an emergency order for health care providers to conduct telemedicine services has been approved. [place] law authorizes licensed health care providers to practice telehealth, as long as such methods are used in a manner that is consistent with their profession's acceptable practices and standards of care. Telehealth practice standards can be found in section 456.47(2) of the [place] Statutes. The use of telehealth can be a vital tool to remotely assess a patient's current chronic pain condition, prescribe appropriate medications, discuss procedural interventions and imaging results, and develop a mutual plan of care. This effort is in place to reduce the patient and healthcare provider's risk of harish the COVID-19 virus. The patient was given this option and agreed to complete today's visit using the [employer] telemedicine ok that allows audio and video real-time direct interaction with the healthcare provider. The patient understands that a physical exam will be omitted due to the virtual nature of this interaction. On 11/30/19 this patient was referred to my office for evaluation and treatment of thoracolumbar pain. 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 She is still under oncological care and close surveillance. She continues to be under remission. Along with such condition of years later she developed osteoporosis, all arthritic changes and this provoked the patient to undergo several surgical interventions due to what appeared to be fragility fractures with multiple revisions in both hands and feet, this has left her with difficulty in utilizing both hands and ambulate properly. 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 About 5 years ago she was diagnosed with fibromyalgia syndrome. This patient is originally from [place] and moved to [place] on 06/2019 (sadly she lost her during the transition). Around 09/2019 patient sustained a a provoking her to fall as a consequence she had a compression fracture of her T12 and L2 her. Due to difficulties with her insurance she was never able to get proper treatment in terms of medication or interventions to alleviate her pain. The patient has been in the past under the care of a pain management physician in [place] who did conservative treatment only but help her control her pain in a fair way. She recalls utilizing hydrocodone and oxycodone at some point apparently 10/325 mg strength of this can help control her pain about 60% I can manage it . The patient has tried gabapentin, Lyrica, interview, Cymbalta none of which has help her pain and she has had poor tolerance due to side effects. Currently obtain is was in the lower thoracic and lumbar, is affected vertebrates of the and had a very poor [id number] due to pain. I was able to review the results of recent diagnostic studies. Thoracic spine MRI (11/08/19) which reports: 1. 20% compression of the superior endplate of T12 with bony edema. 2. Mild degenerative changes throughout the thoracic spine. Osteophyte formation along the anterior right side of the vertebral body and plates. Minimal central or foraminal stenosis. Lumbar spine MRI (11/08/19), which reports: L1-2: compression fracture of the superior endplate of L2. 20% loss of height. Slide retropulsion of the posterior corner. L2-3: mild posterior element hypertrophy. L3-4: slight loss of disc height. Circumferential disc bulging. L4-5: severe loss of disc height. Moderate central canal and foraminal stenosis. Bulging disc. Disc bulging. Moderate facet hypertrophy. L5-S1: mild disc height loss. Her physical exam shows some degree of tenderness upon palpation over the spinous processes from L 2-5. There is some tenderness in the lumbar paraspinal muscles at the same levels. Lumbar facet provocative maneuvers are positive. There are no motor or sensory deficits. Reflexes are present bilaterally in both lower extremities yet patellar are less brisk than Achilles. Based on her clinical and radiological findings I believe that the pain the patient is having his more musculoskeletal rather than a neuropathic in origin. The patient has sustained acute thoracolumbar vertebral fractures and she has not been treated to decrease her pain initially nor the patient is receiving any prophylactic treatment through prevent for osteoporosis to progress. I believe the patient ideally should receive and anabolic compound like Forteo or Tymlos in an effort to accomplish this. In addition I will prescribe oxycodone 10/for 35 mg up to 4 times per day as needed in order to try to control the pain as the fractures continue 2 heal. I have explained in detail to the patient the pathophysiology of her condition, potential therapeutic options is needed in the future according to how her clinical condition evolves. This could include thoracolumbar facet diagnostic nerve block can radiofrequency ablation, epidural injections, etc. The patient is contemplating returning to [place], yet she is uncertain on base. Plan: 1. Oxycodone 10/325 mg up to 4 times per day. 2. Potential for the lumbar facet diagnostic nerve blocks. 3. Bloodwork in preparation for potential anabolic treatment for osteoporosis prevention. 4. Recommend DEXA scan as a baseline. 5. Continue to monitor her condition. This patient was notified of non-opioid treatment (physical therapy, massage therapy, chiropractic manipulations, behavioral interventions as well as non-opioid topical and oral medications) availability, as a sole or adjuvant mode of therapy. Advantages and disadvantages of the above approach were discussed with the patient. An educational pamphlet is available in our office at the patient's request. The appropriate use of opioid/controlled medications was explained to the patient. Relevant questioning of the patient revealed nothing to suggest past or potential aberrant behavior or medication abuse or diversion. Emphasis was placed on tolerance, abuse and dependence. The patient was educated on proper storage and safe keeping of controlled medications. The opioid medication use contract was reviewed and signed by the patient. The patient agrees to comply in full. The patient is aware that if there is any evidence of illicit substance or diversion opioid prescriptions will immediately be canceled. This patient has intractable pain with the diagnosis listed above. In view of such, this patient is in need of chronic opioid therapy with supply of controlled substances for more than 72 hours. The patient has failed conservative measures including but not limited to interventional pain management and conservative measures including physical therapy. The patient reports the medication helps reduce the pain intensity. There is no evidence of significant side effects like cognitive impairment, somnolence, dizziness or abnormal behavior. Does not have suicidal thoughts or worrisome depression. No personality red flags are apparent. Doesn't feel addicted and is in control of taking the medication and has no worries. The [place] drug monitoring program was reviewed and shows compliance with schedule substances the patient is being prescribed or previously taking. Urine drug testing will be ordered at 3-6 month intervals. Urine drug screen and/or quantitative testing is required to validate efficacy of current medication regimen versus noncompliance with dosing versus evaluation of adjuvant analgesic's based on unsatisfactory analgesia despite medication usage. It is also required to monitor the use of non-prescribed medications and/or illegal drugs. Pill count will be done PRN in at random intervals. Urine drug tests are indicated to validate efficacy of current medication regimen versus noncompliance with dosing versus need for adjuvant medications based on continued unsatisfactory levels of pain despite medications. Control substance prescriptions still have an inherently risk for abuse, although still patients can be stratified as low, medium or elevated risk. All new patients will undergo an extensive new patient toxicology panel. The ORT score was 2 These categories will be assigned to each patient based on their medical history, compliance with medical therapy, history of aberrant behavior (includes but is not limited to the followin) misusing, abusing and/or developing an addiction to opioids, control substances or illicit drugs; 2) noncompliance with medical therapy; 3) obtaining pain medications from other medical providers or individuals and/or using outdated prescriptions; 4) divergent off prescribed medications), toxicology screen results, prescription drug monitoring program database results, as well as the this creation of their treating physician; the opioid risk category will dictate how compliance monitoring each patient will require, the elements of screening tests and approximately how often they will undergo toxicology testing although additional or less frequent testing may be justified and performed under this creation of the treating provider when unforeseen circumstances arise. A patient's opioid risk category maybe change in the future at the discretion of the treating provider based on improvement or deterioration in the variables described above that are used to determine the risk category. LOW LEVEL RISK This are patients that have been compliant with medical therapy, not having aberrant behavior and their opioid risk test (ORT) score is low (0-3) or SOAPP-R (<10). Urine drug tests we be done at random intervals 1-2 times every 12 months. MEDIUM LEVEL RISK There opioid risk test (ORT) score is medium (4-7)or SOAPP-R (10-21), hence predicted to have a moderate risk for aberrant behavior, and will have more detailed, more frequent urine toxicology tests. HIGH LEVEL RISK There opioid risk test (ORT) score is high (>7)or SOAPP-R (>21), hence predicted to have a higher risk for aberrant behavior, and will have more detailed, more frequent urine toxicology tests. This will be done to try to ensure they are not using non-prescribed scheduled or illicit drugs that could impede the pain management treatments, motor skills or cognition, other side effects of drug interactions as well as non-adherence to the prescribed drug regimen as documented in the patient's medical record. [employer] voice-recognition was used to prepare this written note. Although each note is personally scanned for syntactic or grammatical errors, unintended but conspicuous translation errors can occur. Please contact our office if there are any questions about the contents of this note. Not available 12/28/2019 11:41:17 01/24/2020 01/24/2020 On 01/24/20 I evaluated this patient via teleconference (audio) due to her chronic pain condition as well as for medication management and renewal. Osteoporosis. This patient has suffered multiple/fragility fractures, including most recently a T12 20% endplate fracture. Today I reviewed with the patient the results of her most recent bloodwork in preparation for starting anabolic therapy, unfortunately there has been a mistake in the laboratory, the order for PTH was interpreted as PT so we'll have the value of this hormone which we need to have in order to start her treatment. Low back pain. The patient continues to express low back pain, for which she is scheduled to have a bilateral transforaminal epidural steroid injection at L4-5. She does have disc degeneration and moderate central and foraminal stenosis at L4-5 according to her most recent lumbar spine MRI from 10/2019. Her pain seems to be worse in the right side of her back. Fibromyalgia. She continues to experience generalized muscle achiness and pain. She has failed treatment with Lyrica, gabapentin, amitriptyline and Cymbalta. In terms of medication management she continues to utilize oxycodone 10/325 mg up to 4 times per day and it is helping her condition. Plan: 1. Renew oxycodone. 2. Repeat PTH level. 3. Start process of approval for Forteo or Tymlos. 4. Continue to monitor her condition. Due to the current Coronavirus (COVID-19) epidemic, an emergency order for health care providers to conduct telemedicine services has been approved. [place] law authorizes licensed health care providers to practice telehealth, as long as such methods are used in a manner that is consistent with their profession's acceptable practices and standards of care. Telehealth practice standards can be found in section 456.47(2) of the [place] Statutes. The use of telehealth can be a vital tool to remotely assess a patient's current chronic pain condition, prescribe appropriate medications (non-scheduled), discuss procedural interventions and imaging results, and develop a mutual plan of care. This effort is in place to reduce the patient and healthcare provider's risk of harish the COVID-19 virus. The patient was given this option and agreed to complete today's visit using the telephone that allows audio real-time direct interaction with the healthcare provider. The patient understands that a physical exam will be omitted due to the virtual nature of this interaction. Patient continues to manage their pain with prescription opiates/controlled substances and understands the risks and precautions associated. Discussed issues of addiction, tolerance and dependency. PDMP was checked prior to prescribing. The pain control continues to be fairly good, the activities of daily living are easier and improved, and is not exhibiting any side effects and not showing any aberrant behavior. Based on the above I will renew the pain medication the patient is receiving and I will continue to monitor the patient's condition. [employer] voice-recognition was used to prepare this written note. Although each note is personally scanned for syntactic or grammatical errors, unintended but conspicuous translation errors can occur. Please contact our office if there are any questions about the contents of this note. On 12/28/19 this patient was evaluated via teleconference visit for follow-up on her chronic pain conditions, as well as for medication management and renewal. Osteoporosis: Patient has suffered from multiple fragility fractures with multiple revisions in both hands and feet, which has left her with difficulty in utilizing both hands and as well as ambulating properly. Around 09/2019 patient sustained a fall and a compression fracture of her T12. Thoracic spine MRI (11/08/19) which reports: 20% compression of the superior endplate of T12 with bony edema. Mild degenerative changes throughout the thoracic spine. Osteophyte formation along the anterior right side of the vertebral body and plates. Minimal central or foraminal stenosis. Lumbar spine MRI (11/08/19), which reports: L1-2: compression fracture of the superior endplate of L2. 20% loss of height. Slide retropulsion of the posterior corner. L2-3: mild posterior element hypertrophy. L3-4: slight loss of disc height. Circumferential disc bulging. L4-5: severe loss of disc height. Moderate central canal and foraminal stenosis. Bulging disc. Disc bulging. Moderate facet hypertrophy. L5-S1: mild disc height loss. Lower Back Pain: Patient reports chronic, constant, moderate, radiating right-sided lower back pain to her hip area. She describes the pain as aching and stabbing at times. Provoking factors include any type of physical activity, as well as sitting in one position too long. Relieving factors include pain medication regimen and resting. She utilizes a walker for ambulation assistance. Fibromyalgia: She is currently noticing more generalized muscle aches and pains. She has failed treatment on pregabalin, gabapentin, amitripyline, and cymbalta. Medication Management: In terms of medication management, the patient continues to utilize oxycodone 10/325 mg up to four times per day which is providing her with tremendous pain relief at this time and no side effects. Plan: 1. Renew oxycodone. 2. Complete DEXA scan as ordered. 3. Continue to monitor her condition. The pain control continues to be fairly good, the activities of daily living are easier and improved, and is not exhibiting any side effects and not showing any aberrant behavior. Based on the above I will renew the pain medication the patient is receiving and I will continue to monitor the patient's condition. Patient continues to manage their pain with prescription opiates/controlled substances and understands the risks and precautions associated. Discussed issues of addiction, tolerance and dependency. PDMP was checked prior to prescribing. Due to the current Coronavirus (COVID-19) epidemic, an emergency order for health care providers to conduct telemedicine services has been approved. [place] law authorizes licensed health care providers to practice telehealth, as long as such methods are used in a manner that is consistent with their profession's acceptable practices and standards of care. Telehealth practice standards can be found in section 456.47(2) of the [place] Statutes. The use of telehealth can be a vital tool to remotely assess a patient's current chronic pain condition, prescribe appropriate medications, discuss procedural interventions and imaging results, and develop a mutual plan of care. This effort is in place to reduce the patient and healthcare provider's risk of harish the COVID-19 virus. The patient was given this option and agreed to complete today's visit using the [employer] telemedicine ok that allows audio and video real-time direct interaction with the healthcare provider. The patient understands that a physical exam will be omitted due to the virtual nature of this interaction. On 11/30/19 this patient was referred to my office for evaluation and treatment of thoracolumbar pain. 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 She is still under oncological care and close surveillance. She continues to be under remission. Along with such condition of years later she developed osteoporosis, all arthritic changes and this provoked the patient to undergo several surgical interventions due to what appeared to be fragility fractures with multiple revisions in both hands and feet, this has left her with difficulty in utilizing both hands and ambulate properly. 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 About 5 years ago she was diagnosed with fibromyalgia syndrome. This patient is originally from [place] and moved to [place] on 06/2019 (sadly she lost her during the transition). Around 09/2019 patient sustained a a provoking her to fall as a consequence she had a compression fracture of her T12 and L2 her. Due to difficulties with her insurance she was never able to get proper treatment in terms of medication or interventions to alleviate her pain. The patient has been in the past under the care of a pain management physician in [place] who did conservative treatment only but help her control her pain in a fair way. She recalls utilizing hydrocodone and oxycodone at some point apparently 10/325 mg strength of this can help control her pain about 60% I can manage it . The patient has tried gabapentin, Lyrica, interview, Cymbalta none of which has help her pain and she has had poor tolerance due to side effects. Currently obtain is was in the lower thoracic and lumbar, is affected vertebrates of the and had a very poor [id number] due to pain. I was able to review the results of recent diagnostic studies. Thoracic spine MRI (11/08/19) which reports: 1. 20% compression of the superior endplate of T12 with bony edema. 2. Mild degenerative changes throughout the thoracic spine. Osteophyte formation along the anterior right side of the vertebral body and plates. Minimal central or foraminal stenosis. Lumbar spine MRI (11/08/19), which reports: L1-2: compression fracture of the superior endplate of L2. 20% loss of height. Slide retropulsion of the posterior corner. L2-3: mild posterior element hypertrophy. L3-4: slight loss of disc height. Circumferential disc bulging. L4-5: severe loss of disc height. Moderate central canal and foraminal stenosis. Bulging disc. Disc bulging. Moderate facet hypertrophy. L5-S1: mild disc height loss. Her physical exam shows some degree of tenderness upon palpation over the spinous processes from L 2-5. There is some tenderness in the lumbar paraspinal muscles at the same levels. Lumbar facet provocative maneuvers are positive. There are no motor or sensory deficits. Reflexes are present bilaterally in both lower extremities yet patellar are less brisk than Achilles. Based on her clinical and radiological findings I believe that the pain the patient is having his more musculoskeletal rather than a neuropathic in origin. The patient has sustained acute thoracolumbar vertebral fractures and she has not been treated to decrease her pain initially nor the patient is receiving any prophylactic treatment through prevent for osteoporosis to progress. I believe the patient ideally should receive and anabolic compound like Forteo or Tymlos in an effort to accomplish this. In addition I will prescribe oxycodone 10/for 35 mg up to 4 times per day as needed in order to try to control the pain as the fractures continue 2 heal. I have explained in detail to the patient the pathophysiology of her condition, potential therapeutic options is needed in the future according to how her clinical condition evolves. This could include thoracolumbar facet diagnostic nerve block can radiofrequency ablation, epidural injections, etc. The patient is contemplating returning to [place], yet she is uncertain on base. Plan: 1. Oxycodone 10/325 mg up to 4 times per day. 2. Potential for the lumbar facet diagnostic nerve blocks. 3. Bloodwork in preparation for potential anabolic treatment for osteoporosis prevention. 4. Recommend DEXA scan as a baseline. 5. Continue to monitor her condition. This patient was notified of non-opioid treatment (physical therapy, massage therapy, chiropractic manipulations, behavioral interventions as well as non-opioid topical and oral medications) availability, as a sole or adjuvant mode of therapy. Advantages and disadvantages of the above approach were discussed with the patient. An educational pamphlet is available in our office at the patient's request. The appropriate use of opioid/controlled medications was explained to the patient. Relevant questioning of the patient revealed nothing to suggest past or potential aberrant behavior or medication abuse or diversion. Emphasis was placed on tolerance, abuse and dependence. The patient was educated on proper storage and safe keeping of controlled medications. The opioid medication use contract was reviewed and signed by the patient. The patient agrees to comply in full. The patient is aware that if there is any evidence of illicit substance or diversion opioid prescriptions will immediately be canceled. This patient has intractable pain with the diagnosis listed above. In view of such, this patient is in need of chronic opioid therapy with supply of controlled substances for more than 72 hours. The patient has failed conservative measures including but not limited to interventional pain management and conservative measures including physical therapy. The patient reports the medication helps reduce the pain intensity. There is no evidence of significant side effects like cognitive impairment, somnolence, dizziness or abnormal behavior. Does not have suicidal thoughts or worrisome depression. No personality red flags are apparent. Doesn't feel addicted and is in control of taking the medication and has no worries. The [place] drug monitoring program was reviewed and shows compliance with schedule substances the patient is being prescribed or previously taking. Urine drug testing will be ordered at 3-6 month intervals. Urine drug screen and/or quantitative testing is required to validate efficacy of current medication regimen versus noncompliance with dosing versus evaluation of adjuvant analgesic's based on unsatisfactory analgesia despite medication usage. It is also required to monitor the use of non-prescribed medications and/or illegal drugs. Pill count will be done PRN in at random intervals. Urine drug tests are indicated to validate efficacy of current medication regimen versus noncompliance with dosing versus need for adjuvant medications based on continued unsatisfactory levels of pain despite medications. Control substance prescriptions still have an inherently risk for abuse, although still patients can be stratified as low, medium or elevated risk. All new patients will undergo an extensive new patient toxicology panel. The ORT score was 2 These categories will be assigned to each patient based on their medical history, compliance with medical therapy, history of aberrant behavior (includes but is not limited to the followin) misusing, abusing and/or developing an addiction to opioids, control substances or illicit drugs; 2) noncompliance with medical therapy; 3) obtaining pain medications from other medical providers or individuals and/or using outdated prescriptions; 4) divergent off prescribed medications), toxicology screen results, prescription drug monitoring program database results, as well as the this creation of their treating physician; the opioid risk category will dictate how compliance monitoring each patient will require, the elements of screening tests and approximately how often they will undergo toxicology testing although additional or less frequent testing may be justified and performed under this creation of the treating provider when unforeseen circumstances arise. A patient's opioid risk category maybe change in the future at the discretion of the treating provider based on improvement or deterioration in the variables described above that are used to determine the risk category. LOW LEVEL RISK This are patients that have been compliant with medical therapy, not having aberrant behavior and their opioid risk test (ORT) score is low (0-3) or SOAPP-R (<10). Urine drug tests we be done at random intervals 1-2 times every 12 months. MEDIUM LEVEL RISK There opioid risk test (ORT) score is medium (4-7)or SOAPP-R (10-21), hence predicted to have a moderate risk for aberrant behavior, and will have more detailed, more frequent urine toxicology tests. HIGH LEVEL RISK There opioid risk test (ORT) score is high (>7)or SOAPP-R (>21), hence predicted to have a higher risk for aberrant behavior, and will have more detailed, more frequent urine toxicology tests. This will be done to try to ensure they are not using non-prescribed scheduled or illicit drugs that could impede the pain management treatments, motor skills or cognition, other side effects of drug interactions as well as non-adherence to the prescribed drug regimen as documented in the patient's medical record. [employer] voice-recognition was used to prepare this written note. Although each note is personally scanned for syntactic or grammatical errors, unintended but conspicuous translation errors can occur. Please contact our office if there are any questions about the contents of this note. [email or web address] Not available 01/24/2020 13:55:44 02/21/2020 02/21/2020 On 02/21/20 this patient was evaluated via teleconference (audio) for follow-up on her chronic pain conditions, as well as for medication management and renewal and review of her most recent procedure. Osteoporosis: She has suffered multiple/fragility fractures, including most recently a T12 20% endplate fracture. Today, I reviewed with the patient the results of her most recent bloodwork in preparation for starting anabolic therapy, unfortunately there has been a mistake in the laboratory, the order for PTH was interpreted as PT. Therefore, we will order the PTH. Lower Back Pain: The patient continues to have chronic, moderate to severe, almost constant, lower back pain, for which she had a bilateral transforaminal epidural steroid injection at L4-5 #1 on 01/29/2020. She reports a slight improvement in her pain since having the procedure. Provoking factors include any type of physical activity. Facet loading maneuvers are positive during today's visit. She denies recent falls and injuries, as well as BLE weakness. Imaging: She does have disc degeneration and moderate central and foraminal stenosis at L4-5 according to her most recent lumbar spine MRI from 10/2019. Fibromyalgia: She continues to experience generalized muscle achiness and pain. She has failed treatment with Lyrica, gabapentin, amitriptyline and Cymbalta. She reports that her pain is worsened due to increased stress and inclement weather. Acute Leukemia: She continues to be under the care of Dr. Shaikh. She has completed treatment. Medication Management: In terms of medication management, she continues to utilize oxycodone 10/325 mg up to 4 times per day. PDMP shows last filled 01/28/2020. Plan: 1. Renew oxycodone. 2. Repeat PTH level. 3. Consider Forteo or Tymlos. 4. Continue to monitor her condition. 5. Continue to follow-up with multiple specialists. The pain control continues to be fairly good, the activities of daily living are easier and improved, and is not exhibiting any side effects and not showing any aberrant behavior. Based on the above we will renew the pain medication the patient is receiving and we will continue to monitor the patient's condition. Patient continues to manage their pain with prescription opiates/controlled substances and understands the risks and precautions associated. Discussed issues of addiction, tolerance and dependency. PDMP was checked prior to prescribing. Due to the current Coronavirus (COVID-19) epidemic, an emergency order for health care providers to conduct telemedicine services has been approved. [place] law authorizes licensed health care providers to practice telehealth, as long as such methods are used in a manner that is consistent with their profession's acceptable practices and standards of care. Telehealth practice standards can be found in section 456.47(2) of the [place] Statutes. The use of telehealth can be a vital tool to remotely assess a patient's current chronic pain condition, prescribe appropriate medications, discuss procedural interventions and imaging results, and develop a mutual plan of care. This effort is in place to reduce the patient and healthcare provider's risk of harish the COVID-19 virus. The patient was given this option and agreed to complete today's visit using the [employer] telemedicine ok that allows audio and video real-time direct interaction with the healthcare provider. The patient and we understand the limitations of a telemedicine visit including inability to check reflexes, possibly missing subtle findings on a physical exam. Alternative options were presented to the patient and the patient elected to proceed with the visit. On 01/24/20 this patient was evaluated via teleconference (audio) for follow-up on her chronic pain conditions, as well as for medication management and renewal and review of her most recent procedure. Osteoporosis. This patient has suffered multiple/fragility fractures, including most recently a T12 20% endplate fracture. Today I reviewed with the patient the results of her most recent bloodwork in preparation for starting anabolic therapy, unfortunately there has been a mistake in the laboratory, the order for PTH was interpreted as PT so we'll have the value of this hormone which we need to have in order to start her treatment. Low back pain. The patient continues to express low back pain, for which she had a bilateral transforaminal epidural steroid injection at L4-5 #1 on 01/29/2020. She does have disc degeneration and moderate central and foraminal stenosis at L4-5 according to her most recent lumbar spine MRI from 10/2019. Her pain seems to be worse in the right side of her back. Fibromyalgia. She continues to experience generalized muscle achiness and pain. She has failed treatment with Lyrica, gabapentin, amitriptyline and Cymbalta. In terms of medication management she continues to utilize oxycodone 10/325 mg up to 4 times per day and it is helping her condition. Plan: 1. Renew oxycodone. 2. Repeat PTH level. 3. Start process of approval for Forteo or Tymlos. 4. Continue to monitor her condition. Due to the current Coronavirus (COVID-19) epidemic, an emergency order for health care providers to conduct telemedicine services has been approved. [place] law authorizes licensed health care providers to practice telehealth, as long as such methods are used in a manner that is consistent with their profession's acceptable practices and standards of care. Telehealth practice standards can be found in section 456.47(2) of the [place] Statutes. The use of telehealth can be a vital tool to remotely assess a patient's current chronic pain condition, prescribe appropriate medications (non-scheduled), discuss procedural interventions and imaging results, and develop a mutual plan of care. This effort is in place to reduce the patient and healthcare provider's risk of harish the COVID-19 virus. The patient was given this option and agreed to complete today's visit using the telephone that allows audio real-time direct interaction with the healthcare provider. The patient understands that a physical exam will be omitted due to the virtual nature of this interaction. Patient continues to manage their pain with prescription opiates/controlled substances and understands the risks and precautions associated. Discussed issues of addiction, tolerance and dependency. PDMP was checked prior to prescribing. The pain control continues to be fairly good, the activities of daily living are easier and improved, and is not exhibiting any side effects and not showing any aberrant behavior. Based on the above I will renew the pain medication the patient is receiving and I will continue to monitor the patient's condition. [employer] voice-recognition was used to prepare this written note. Although each note is personally scanned for syntactic or grammatical errors, unintended but conspicuous translation errors can occur. Please contact our office if there are any questions about the contents of this note. On 12/28/19 this patient was evaluated via teleconference visit for follow-up on her chronic pain conditions, as well as for medication management and renewal. Osteoporosis: Patient has suffered from multiple fragility fractures with multiple revisions in both hands and feet, which has left her with difficulty in utilizing both hands and as well as ambulating properly. Around 09/2019 patient sustained a fall and a compression fracture of her T12. Thoracic spine MRI (11/08/19) which reports: 20% compression of the superior endplate of T12 with bony edema. Mild degenerative changes throughout the thoracic spine. Osteophyte formation along the anterior right side of the vertebral body and plates. Minimal central or foraminal stenosis. Lumbar spine MRI (11/08/19), which reports: L1-2: compression fracture of the superior endplate of L2. 20% loss of height. Slide retropulsion of the posterior corner. L2-3: mild posterior element hypertrophy. L3-4: slight loss of disc height. Circumferential disc bulging. L4-5: severe loss of disc height. Moderate central canal and foraminal stenosis. Bulging disc. Disc bulging. Moderate facet hypertrophy. L5-S1: mild disc height loss. Lower Back Pain: Patient reports chronic, constant, moderate, radiating right-sided lower back pain to her hip area. She describes the pain as aching and stabbing at times. Provoking factors include any type of physical activity, as well as sitting in one position too long. Relieving factors include pain medication regimen and resting. She utilizes a walker for ambulation assistance. Fibromyalgia: She is currently noticing more generalized muscle aches and pains. She has failed treatment on pregabalin, gabapentin, amitripyline, and cymbalta. Medication Management: In terms of medication management, the patient continues to utilize oxycodone 10/325 mg up to four times per day which is providing her with tremendous pain relief at this time and no side effects. Plan: 1. Renew oxycodone. 2. Complete DEXA scan as ordered. 3. Continue to monitor her condition. The pain control continues to be fairly good, the activities of daily living are easier and improved, and is not exhibiting any side effects and not showing any aberrant behavior. Based on the above I will renew the pain medication the patient is receiving and I will continue to monitor the patient's condition. Patient continues to manage their pain with prescription opiates/controlled substances and understands the risks and precautions associated. Discussed issues of addiction, tolerance and dependency. PDMP was checked prior to prescribing. Due to the current Coronavirus (COVID-19) epidemic, an emergency order for health care providers to conduct telemedicine services has been approved. [place] law authorizes licensed health care providers to practice telehealth, as long as such methods are used in a manner that is consistent with their profession's acceptable practices and standards of care. Telehealth practice standards can be found in section 456.47(2) of the [place] Statutes. The use of telehealth can be a vital tool to remotely assess a patient's current chronic pain condition, prescribe appropriate medications, discuss procedural interventions and imaging results, and develop a mutual plan of care. This effort is in place to reduce the patient and healthcare provider's risk of harish the COVID-19 virus. The patient was given this option and agreed to complete today's visit using the [employer] telemedicine ok that allows audio and video real-time direct interaction with the healthcare provider. The patient understands that a physical exam will be omitted due to the virtual nature of this interaction. On 11/30/19 this patient was referred to my office for evaluation and treatment of thoracolumbar pain. 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 She is still under oncological care and close surveillance. She continues to be under remission. Along with such condition of years later she developed osteoporosis, all arthritic changes and this provoked the patient to undergo several surgical interventions due to what appeared to be fragility fractures with multiple revisions in both hands and feet, this has left her with difficulty in utilizing both hands and ambulate properly. 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 About 5 years ago she was diagnosed with fibromyalgia syndrome. This patient is originally from [place] and moved to [place] on 06/2019 (sadly she lost her during the transition). Around 09/2019 patient sustained a a provoking her to fall as a consequence she had a compression fracture of her T12 and L2 her. Due to difficulties with her insurance she was never able to get proper treatment in terms of medication or interventions to alleviate her pain. The patient has been in the past under the care of a pain management physician in [place] who did conservative treatment only but help her control her pain in a fair way. She recalls utilizing hydrocodone and oxycodone at some point apparently 10/325 mg strength of this can help control her pain about 60% I can manage it . The patient has tried gabapentin, Lyrica, interview, Cymbalta none of which has help her pain and she has had poor tolerance due to side effects. Currently obtain is was in the lower thoracic and lumbar, is affected vertebrates of the and had a very poor [id number] due to pain. I was able to review the results of recent diagnostic studies. Thoracic spine MRI (11/08/19) which reports: 1. 20% compression of the superior endplate of T12 with bony edema. 2. Mild degenerative changes throughout the thoracic spine. Osteophyte formation along the anterior right side of the vertebral body and plates. Minimal central or foraminal stenosis. Lumbar spine MRI (11/08/19), which reports: L1-2: compression fracture of the superior endplate of L2. 20% loss of height. Slide retropulsion of the posterior corner. L2-3: mild posterior element hypertrophy. L3-4: slight loss of disc height. Circumferential disc bulging. L4-5: severe loss of disc height. Moderate central canal and foraminal stenosis. Bulging disc. Disc bulging. Moderate facet hypertrophy. L5-S1: mild disc height loss. Her physical exam shows some degree of tenderness upon palpation over the spinous processes from L 2-5. There is some tenderness in the lumbar paraspinal muscles at the same levels. Lumbar facet provocative maneuvers are positive. There are no motor or sensory deficits. Reflexes are present bilaterally in both lower extremities yet patellar are less brisk than Achilles. Based on her clinical and radiological findings I believe that the pain the patient is having his more musculoskeletal rather than a neuropathic in origin. The patient has sustained acute thoracolumbar vertebral fractures and she has not been treated to decrease her pain initially nor the patient is receiving any prophylactic treatment through prevent for osteoporosis to progress. I believe the patient ideally should receive and anabolic compound like Forteo or Tymlos in an effort to accomplish this. In addition I will prescribe oxycodone 10/for 35 mg up to 4 times per day as needed in order to try to control the pain as the fractures continue 2 heal. I have explained in detail to the patient the pathophysiology of her condition, potential therapeutic options is needed in the future according to how her clinical condition evolves. This could include thoracolumbar facet diagnostic nerve block can radiofrequency ablation, epidural injections, etc. The patient is contemplating returning to [place], yet she is uncertain on base. Plan: 1. Oxycodone 10/325 mg up to 4 times per day. 2. Potential for the lumbar facet diagnostic nerve blocks. 3. Bloodwork in preparation for potential anabolic treatment for osteoporosis prevention. 4. Recommend DEXA scan as a baseline. 5. Continue to monitor her condition. This patient was notified of non-opioid treatment (physical therapy, massage therapy, chiropractic manipulations, behavioral interventions as well as non-opioid topical and oral medications) availability, as a sole or adjuvant mode of therapy. Advantages and disadvantages of the above approach were discussed with the patient. An educational pamphlet is available in our office at the patient's request. The appropriate use of opioid/controlled medications was explained to the patient. Relevant questioning of the patient revealed nothing to suggest past or potential aberrant behavior or medication abuse or diversion. Emphasis was placed on tolerance, abuse and dependence. The patient was educated on proper storage and safe keeping of controlled medications. The opioid medication use contract was reviewed and signed by the patient. The patient agrees to comply in full. The patient is aware that if there is any evidence of illicit substance or diversion opioid prescriptions will immediately be canceled. This patient has intractable pain with the diagnosis listed above. In view of such, this patient is in need of chronic opioid therapy with supply of controlled substances for more than 72 hours. The patient has failed conservative measures including but not limited to interventional pain management and conservative measures including physical therapy. The patient reports the medication helps reduce the pain intensity. There is no evidence of significant side effects like cognitive impairment, somnolence, dizziness or abnormal behavior. Does not have suicidal thoughts or worrisome depression. No personality red flags are apparent. Doesn't feel addicted and is in control of taking the medication and has no worries. The [place] drug monitoring program was reviewed and shows compliance with schedule substances the patient is being prescribed or previously taking. Urine drug testing will be ordered at 3-6 month intervals. Urine drug screen and/or quantitative testing is required to validate efficacy of current medication regimen versus noncompliance with dosing versus evaluation of adjuvant analgesic's based on unsatisfactory analgesia despite medication usage. It is also required to monitor the use of non-prescribed medications and/or illegal drugs. Pill count will be done PRN in at random intervals. Urine drug tests are indicated to validate efficacy of current medication regimen versus noncompliance with dosing versus need for adjuvant medications based on continued unsatisfactory levels of pain despite medications. Control substance prescriptions still have an inherently risk for abuse, although still patients can be stratified as low, medium or elevated risk. All new patients will undergo an extensive new patient toxicology panel. The ORT score was 2 These categories will be assigned to each patient based on their medical history, compliance with medical therapy, history of aberrant behavior (includes but is not limited to the followin) misusing, abusing and/or developing an addiction to opioids, control substances or illicit drugs; 2) noncompliance with medical therapy; 3) obtaining pain medications from other medical providers or individuals and/or using outdated prescriptions; 4) divergent off prescribed medications), toxicology screen results, prescription drug monitoring program database results, as well as the this creation of their treating physician; the opioid risk category will dictate how compliance monitoring each patient will require, the elements of screening tests and approximately how often they will undergo toxicology testing although additional or less frequent testing may be justified and performed under this creation of the treating provider when unforeseen circumstances arise. A patient's opioid risk category maybe change in the future at the discretion of the treating provider based on improvement or deterioration in the variables described above that are used to determine the risk category. LOW LEVEL RISK This are patients that have been compliant with medical therapy, not having aberrant behavior and their opioid risk test (ORT) score is low (0-3) or SOAPP-R (<10). Urine drug tests we be done at random intervals 1-2 times every 12 months. MEDIUM LEVEL RISK There opioid risk test (ORT) score is medium (4-7)or SOAPP-R (10-21), hence predicted to have a moderate risk for aberrant behavior, and will have more detailed, more frequent urine toxicology tests. HIGH LEVEL RISK There opioid risk test (ORT) score is high (>7)or SOAPP-R (>21), hence predicted to have a higher risk for aberrant behavior, and will have more detailed, more frequent urine toxicology tests. This will be done to try to ensure they are not using non-prescribed scheduled or illicit drugs that could impede the pain management treatments, motor skills or cognition, other side effects of drug interactions as well as non-adherence to the prescribed drug regimen as documented in the patient's medical record. [employer] voice-recognition was used to prepare this written note. Although each note is personally scanned for syntactic or grammatical errors, unintended but conspicuous translation errors can occur. Please contact our office if there are any questions about the contents of this note. [email or web address] Not available 02/21/2020 14:43:29 03/20/2020 03/20/2020 On 03/20/20 this patient was evaluated via teleconference (audio) for follow-up on her chronic pain conditions, as well as for medication management and renewal and review of her most recent procedure. She is currently driving to [place], [place] from [place]. Her [id number] just so she is going to visit her brother. Osteoporosis: She has suffered multiple/fragility fractures, including most recently a T12 20% endplate fracture. Today, I reviewed with the patient the results of her most recent bloodwork in preparation for starting anabolic therapy. Therefore, we can consider it appropriate to start her on Tymlos. Lower Back Pain: The patient continues to have chronic, moderate to severe, almost constant, lower back pain, for which she had a bilateral transforaminal epidural steroid injection at L4-5 #1 on 01/29/2020. Provoking factors include any type of physical activity, as well as prolonged sitting/positions/ riding in a car. Facet loading maneuvers are positive during today's visit. She denies recent falls and injuries, as well as BLE weakness. She ambulates independently. Imaging: She does have disc degeneration and moderate central and foraminal stenosis at L4-5 according to her most recent lumbar spine MRI from 10/2019. Fibromyalgia: She continues to experience generalized muscle achiness and pain that has increased over the last several days due to driving in a car for 6+ hours per day. She has failed treatment with Lyrica, gabapentin, amitriptyline and Cymbalta. She reports that her pain is worsened due to increased stress and inclement weather. Medication Management: In terms of medication management, she continues to utilize oxycodone 10/325 mg up to 4 times per day. PDMP shows last filled 02/27/2020. Patient is currently utilizing the medication regimen as prescribed and has reached a stable therapeutic dose, which helps their overall daily functioning, reduces their pain level, and improves their quality of life. Plan: 1. Do not renew oxycodone per patient. 2. Start Tymlos. 3. Continue to monitor her condition. 4. Continue to follow-up with multiple specialists. 5. No interventions at this time as she is currently out of state. The pain control continues to be fairly good, the activities of daily living are easier and improved, and is not exhibiting any side effects and not showing any aberrant behavior. Based on the above we will renew the pain medication the patient is receiving and we will continue to monitor the patient's condition. Patient continues to manage their pain with prescription opiates/controlled substances and understands the risks and precautions associated. Discussed issues of addiction, tolerance and dependency. PDMP was checked prior to prescribing. Due to the current Coronavirus (COVID-19) epidemic, an emergency order for health care providers to conduct telemedicine services has been approved. [place] law authorizes licensed health care providers to practice telehealth, as long as such methods are used in a manner that is consistent with their profession's acceptable practices and standards of care. Telehealth practice standards can be found in section 456.47(2) of the [place] Statutes. The use of telehealth can be a vital tool to remotely assess a patient's current chronic pain condition, prescribe appropriate medications, discuss procedural interventions and imaging results, and develop a mutual plan of care. This effort is in place to reduce the patient and healthcare provider's risk of harish the COVID-19 virus. The patient was given this option and agreed to complete today's visit using the [employer] telemedicine ok that allows audio and video real-time direct interaction with the healthcare provider. The patient and we understand the limitations of a telemedicine visit including inability to check reflexes, possibly missing subtle findings on a physical exam. Alternative options were presented to the patient and the patient elected to proceed with the visit. On 02/21/20 this patient was evaluated via teleconference (audio) for follow-up on her chronic pain conditions, as well as for medication management and renewal and review of her most recent procedure. Osteoporosis: She has suffered multiple/fragility fractures, including most recently a T12 20% endplate fracture. Today, I reviewed with the patient the results of her most recent bloodwork in preparation for starting anabolic therapy, unfortunately there has been a mistake in the laboratory, the order for PTH was interpreted as PT. Therefore, we will order the PTH. Lower Back Pain: The patient continues to have chronic, moderate to severe, almost constant, lower back pain, for which she had a bilateral transforaminal epidural steroid injection at L4-5 #1 on 01/29/2020. She reports a slight improvement in her pain since having the procedure. Provoking factors include any type of physical activity. Facet loading maneuvers are positive during today's visit. She denies recent falls and injuries, as well as BLE weakness. Imaging: She does have disc degeneration and moderate central and foraminal stenosis at L4-5 according to her most recent lumbar spine MRI from 10/2019. Fibromyalgia: She continues to experience generalized muscle achiness and pain. She has failed treatment with Lyrica, gabapentin, amitriptyline and Cymbalta. She reports that her pain is worsened due to increased stress and inclement weather. Acute Leukemia: She continues to be under the care of Dr. Shaikh. She has completed treatment. Medication Management: In terms of medication management, she continues to utilize oxycodone 10/325 mg up to 4 times per day. PDMP shows last filled 01/28/2020. Plan: 1. Renew oxycodone. 2. Repeat PTH level. 3. Consider Forteo or Tymlos. 4. Continue to monitor her condition. 5. Continue to follow-up with multiple specialists. The pain control continues to be fairly good, the activities of daily living are easier and improved, and is not exhibiting any side effects and not showing any aberrant behavior. Based on the above we will renew the pain medication the patient is receiving and we will continue to monitor the patient's condition. Patient continues to manage their pain with prescription opiates/controlled substances and understands the risks and precautions associated. Discussed issues of addiction, tolerance and dependency. PDMP was checked prior to prescribing. Due to the current Coronavirus (COVID-19) epidemic, an emergency order for health care providers to conduct telemedicine services has been approved. [place] law authorizes licensed health care providers to practice telehealth, as long as such methods are used in a manner that is consistent with their profession's acceptable practices and standards of care. Telehealth practice standards can be found in section 456.47(2) of the [place] Statutes. The use of telehealth can be a vital tool to remotely assess a patient's current chronic pain condition, prescribe appropriate medications, discuss procedural interventions and imaging results, and develop a mutual plan of care. This effort is in place to reduce the patient and healthcare provider's risk of harish the COVID-19 virus. The patient was given this option and agreed to complete today's visit using the [employer] telemedicine ok that allows audio and video real-time direct interaction with the healthcare provider. The patient and we understand the limitations of a telemedicine visit including inability to check reflexes, possibly missing subtle findings on a physical exam. Alternative options were presented to the patient and the patient elected to proceed with the visit. On 01/24/20 this patient was evaluated via teleconference (audio) for follow-up on her chronic pain conditions, as well as for medication management and renewal and review of her most recent procedure. Osteoporosis. This patient has suffered multiple/fragility fractures, including most recently a T12 20% endplate fracture. Today I reviewed with the patient the results of her most recent bloodwork in preparation for starting anabolic therapy, unfortunately there has been a mistake in the laboratory, the order for PTH was interpreted as PT so we'll have the value of this hormone which we need to have in order to start her treatment. Low back pain. The patient continues to express low back pain, for which she had a bilateral transforaminal epidural steroid injection at L4-5 #1 on 01/29/2020. She does have disc degeneration and moderate central and foraminal stenosis at L4-5 according to her most recent lumbar spine MRI from 10/2019. Her pain seems to be worse in the right side of her back. Fibromyalgia. She continues to experience generalized muscle achiness and pain. She has failed treatment with Lyrica, gabapentin, amitriptyline and Cymbalta. In terms of medication management she continues to utilize oxycodone 10/325 mg up to 4 times per day and it is helping her condition. Plan: 1. Renew oxycodone. 2. Repeat PTH level. 3. Start process of approval for Forteo or Tymlos. 4. Continue to monitor her condition. Due to the current Coronavirus (COVID-19) epidemic, an emergency order for health care providers to conduct telemedicine services has been approved. [place] law authorizes licensed health care providers to practice telehealth, as long as such methods are used in a manner that is consistent with their profession's acceptable practices and standards of care. Telehealth practice standards can be found in section 456.47(2) of the [place] Statutes. The use of telehealth can be a vital tool to remotely assess a patient's current chronic pain condition, prescribe appropriate medications (non-scheduled), discuss procedural interventions and imaging results, and develop a mutual plan of care. This effort is in place to reduce the patient and healthcare provider's risk of harish the COVID-19 virus. The patient was given this option and agreed to complete today's visit using the telephone that allows audio real-time direct interaction with the healthcare provider. The patient understands that a physical exam will be omitted due to the virtual nature of this interaction. Patient continues to manage their pain with prescription opiates/controlled substances and understands the risks and precautions associated. Discussed issues of addiction, tolerance and dependency. PDMP was checked prior to prescribing. The pain control continues to be fairly good, the activities of daily living are easier and improved, and is not exhibiting any side effects and not showing any aberrant behavior. Based on the above I will renew the pain medication the patient is receiving and I will continue to monitor the patient's condition. [employer] voice-recognition was used to prepare this written note. Although each note is personally scanned for syntactic or grammatical errors, unintended but conspicuous translation errors can occur. Please contact our office if there are any questions about the contents of this note. On 12/28/19 this patient was evaluated via teleconference visit for follow-up on her chronic pain conditions, as well as for medication management and renewal. Osteoporosis: Patient has suffered from multiple fragility fractures with multiple revisions in both hands and feet, which has left her with difficulty in utilizing both hands and as well as ambulating properly. Around 09/2019 patient sustained a fall and a compression fracture of her T12. Thoracic spine MRI (11/08/19) which reports: 20% compression of the superior endplate of T12 with bony edema. Mild degenerative changes throughout the thoracic spine. Osteophyte formation along the anterior right side of the vertebral body and plates. Minimal central or foraminal stenosis. Lumbar spine MRI (11/08/19), which reports: L1-2: compression fracture of the superior endplate of L2. 20% loss of height. Slide retropulsion of the posterior corner. L2-3: mild posterior element hypertrophy. L3-4: slight loss of disc height. Circumferential disc bulging. L4-5: severe loss of disc height. Moderate central canal and foraminal stenosis. Bulging disc. Disc bulging. Moderate facet hypertrophy. L5-S1: mild disc height loss. Lower Back Pain: Patient reports chronic, constant, moderate, radiating right-sided lower back pain to her hip area. She describes the pain as aching and stabbing at times. Provoking factors include any type of physical activity, as well as sitting in one position too long. Relieving factors include pain medication regimen and resting. She utilizes a walker for ambulation assistance. Fibromyalgia: She is currently noticing more generalized muscle aches and pains. She has failed treatment on pregabalin, gabapentin, amitripyline, and cymbalta. Medication Management: In terms of medication management, the patient continues to utilize oxycodone 10/325 mg up to four times per day which is providing her with tremendous pain relief at this time and no side effects. Plan: 1. Renew oxycodone. 2. Complete DEXA scan as ordered. 3. Continue to monitor her condition. The pain control continues to be fairly good, the activities of daily living are easier and improved, and is not exhibiting any side effects and not showing any aberrant behavior. Based on the above I will renew the pain medication the patient is receiving and I will continue to monitor the patient's condition. Patient continues to manage their pain with prescription opiates/controlled substances and understands the risks and precautions associated. Discussed issues of addiction, tolerance and dependency. PDMP was checked prior to prescribing. Due to the current Coronavirus (COVID-19) epidemic, an emergency order for health care providers to conduct telemedicine services has been approved. [place] law authorizes licensed health care providers to practice telehealth, as long as such methods are used in a manner that is consistent with their profession's acceptable practices and standards of care. Telehealth practice standards can be found in section 456.47(2) of the [place] Statutes. The use of telehealth can be a vital tool to remotely assess a patient's current chronic pain condition, prescribe appropriate medications, discuss procedural interventions and imaging results, and develop a mutual plan of care. This effort is in place to reduce the patient and healthcare provider's risk of harish the COVID-19 virus. The patient was given this option and agreed to complete today's visit using the [employer] telemedicine ok that allows audio and video real-time direct interaction with the healthcare provider. The patient understands that a physical exam will be omitted due to the virtual nature of this interaction. On 11/30/19 this patient was referred to my office for evaluation and treatment of thoracolumbar pain. 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 She is still under oncological care and close surveillance. She continues to be under remission. Along with such condition of years later she developed osteoporosis, all arthritic changes and this provoked the patient to undergo several surgical interventions due to what appeared to be fragility fractures with multiple revisions in both hands and feet, this has left her with difficulty in utilizing both hands and ambulate properly. 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 About 5 years ago she was diagnosed with fibromyalgia syndrome. This patient is originally from [place] and moved to [place] on 06/2019 (sadly she lost her during the transition). Around 09/2019 patient sustained a a provoking her to fall as a consequence she had a compression fracture of her T12 and L2 her. Due to difficulties with her insurance she was never able to get proper treatment in terms of medication or interventions to alleviate her pain. The patient has been in the past under the care of a pain management physician in [place] who did conservative treatment only but help her control her pain in a fair way. She recalls utilizing hydrocodone and oxycodone at some point apparently 10/325 mg strength of this can help control her pain about 60% I can manage it . The patient has tried gabapentin, Lyrica, interview, Cymbalta none of which has help her pain and she has had poor tolerance due to side effects. Currently obtain is was in the lower thoracic and lumbar, is affected vertebrates of the and had a very poor [id number] due to pain. I was able to review the results of recent diagnostic studies. Thoracic spine MRI (11/08/19) which reports: 1. 20% compression of the superior endplate of T12 with bony edema. 2. Mild degenerative changes throughout the thoracic spine. Osteophyte formation along the anterior right side of the vertebral body and plates. Minimal central or foraminal stenosis. Lumbar spine MRI (11/08/19), which reports: L1-2: compression fracture of the superior endplate of L2. 20% loss of height. Slide retropulsion of the posterior corner. L2-3: mild posterior element hypertrophy. L3-4: slight loss of disc height. Circumferential disc bulging. L4-5: severe loss of disc height. Moderate central canal and foraminal stenosis. Bulging disc. Disc bulging. Moderate facet hypertrophy. L5-S1: mild disc height loss. Her physical exam shows some degree of tenderness upon palpation over the spinous processes from L 2-5. There is some tenderness in the lumbar paraspinal muscles at the same levels. Lumbar facet provocative maneuvers are positive. There are no motor or sensory deficits. Reflexes are present bilaterally in both lower extremities yet patellar are less brisk than Achilles. Based on her clinical and radiological findings I believe that the pain the patient is having his more musculoskeletal rather than a neuropathic in origin. The patient has sustained acute thoracolumbar vertebral fractures and she has not been treated to decrease her pain initially nor the patient is receiving any prophylactic treatment through prevent for osteoporosis to progress. I believe the patient ideally should receive and anabolic compound like Forteo or Tymlos in an effort to accomplish this. In addition I will prescribe oxycodone 10/for 35 mg up to 4 times per day as needed in order to try to control the pain as the fractures continue 2 heal. I have explained in detail to the patient the pathophysiology of her condition, potential therapeutic options is needed in the future according to how her clinical condition evolves. This could include thoracolumbar facet diagnostic nerve block can radiofrequency ablation, epidural injections, etc. The patient is contemplating returning to [place], yet she is uncertain on base. Plan: 1. Oxycodone 10/325 mg up to 4 times per day. 2. Potential for the lumbar facet diagnostic nerve blocks. 3. Bloodwork in preparation for potential anabolic treatment for osteoporosis prevention. 4. Recommend DEXA scan as a baseline. 5. Continue to monitor her condition. This patient was notified of non-opioid treatment (physical therapy, massage therapy, chiropractic manipulations, behavioral interventions as well as non-opioid topical and oral medications) availability, as a sole or adjuvant mode of therapy. Advantages and disadvantages of the above approach were discussed with the patient. An educational pamphlet is available in our office at the patient's request. The appropriate use of opioid/controlled medications was explained to the patient. Relevant questioning of the patient revealed nothing to suggest past or potential aberrant behavior or medication abuse or diversion. Emphasis was placed on tolerance, abuse and dependence. The patient was educated on proper storage and safe keeping of controlled medications. The opioid medication use contract was reviewed and signed by the patient. The patient agrees to comply in full. The patient is aware that if there is any evidence of illicit substance or diversion opioid prescriptions will immediately be canceled. This patient has intractable pain with the diagnosis listed above. In view of such, this patient is in need of chronic opioid therapy with supply of controlled substances for more than 72 hours. The patient has failed conservative measures including but not limited to interventional pain management and conservative measures including physical therapy. The patient reports the medication helps reduce the pain intensity. There is no evidence of significant side effects like cognitive impairment, somnolence, dizziness or abnormal behavior. Does not have suicidal thoughts or worrisome depression. No personality red flags are apparent. Doesn't feel addicted and is in control of taking the medication and has no worries. The [place] drug monitoring program was reviewed and shows compliance with schedule substances the patient is being prescribed or previously taking. Urine drug testing will be ordered at 3-6 month intervals. Urine drug screen and/or quantitative testing is required to validate efficacy of current medication regimen versus noncompliance with dosing versus evaluation of adjuvant analgesic's based on unsatisfactory analgesia despite medication usage. It is also required to monitor the use of non-prescribed medications and/or illegal drugs. Pill count will be done PRN in at random intervals. Urine drug tests are indicated to validate efficacy of current medication regimen versus noncompliance with dosing versus need for adjuvant medications based on continued unsatisfactory levels of pain despite medications. Control substance prescriptions still have an inherently risk for abuse, although still patients can be stratified as low, medium or elevated risk. All new patients will undergo an extensive new patient toxicology panel. The ORT score was 2 These categories will be assigned to each patient based on their medical history, compliance with medical therapy, history of aberrant behavior (includes but is not limited to the followin) misusing, abusing and/or developing an addiction to opioids, control substances or illicit drugs; 2) noncompliance with medical therapy; 3) obtaining pain medications from other medical providers or individuals and/or using outdated prescriptions; 4) divergent off prescribed medications), toxicology screen results, prescription drug monitoring program database results, as well as the this creation of their treating physician; the opioid risk category will dictate how compliance monitoring each patient will require, the elements of screening tests and approximately how often they will undergo toxicology testing although additional or less frequent testing may be justified and performed under this creation of the treating provider when unforeseen circumstances arise. A patient's opioid risk category maybe change in the future at the discretion of the treating provider based on improvement or deterioration in the variables described above that are used to determine the risk category. LOW LEVEL RISK This are patients that have been compliant with medical therapy, not having aberrant behavior and their opioid risk test (ORT) score is low (0-3) or SOAPP-R (<10). Urine drug tests we be done at random intervals 1-2 times every 12 months. MEDIUM LEVEL RISK There opioid risk test (ORT) score is medium (4-7)or SOAPP-R (10-21), hence predicted to have a moderate risk for aberrant behavior, and will have more detailed, more frequent urine toxicology tests. HIGH LEVEL RISK There opioid risk test (ORT) score is high (>7)or SOAPP-R (>21), hence predicted to have a higher risk for aberrant behavior, and will have more detailed, more frequent urine toxicology tests. This will be done to try to ensure they are not using non-prescribed scheduled or illicit drugs that could impede the pain management treatments, motor skills or cognition, other side effects of drug interactions as well as non-adherence to the prescribed drug regimen as documented in the patient's medical record. [employer] voice-recognition was used to prepare this written note. Although each note is personally scanned for syntactic or grammatical errors, unintended but conspicuous translation errors can occur. Please contact our office if there are any questions about the contents of this note. Not available 03/20/2020 17:28:54 Plan of Treatment Reminders Order Date Submit Date Provider Last Modified By Organization Details Last Modified Time Details Appointments None recorded. Lab PTH (parathyro id hormone), intact, serum or plasma [facility], [address], [place], [address], 0 20:05:05 Referral None recorded. Procedures None recorded. Surgeries None recorded. Imaging None recorded. Medication Orders Tymlos 80 mcg/dose (3,120 mcg/1.56 mL) subcutaneo us pen injector 2019 INTERFACE [facility] #[id number], [address], [place], [place], [id number], 0 17:29:00 oxycodone- acetaminop hen 10 mg-325 mg tablet 2019 INTERFACE [facility] #[id number], [address], [place], [place], [id number], 0 20:01:49 oxycodone- acetaminop hen 10 mg-325 mg tablet 2019 020 INTERFACE [facility] #[id number], [address], [place], [place], [id number], 0 13:57:53 oxycodone- acetaminop hen 10 mg-325 mg tablet 2019 020 INTERFACE [facility] #[id number], [address], [place], [place], [id number], 0 00:48:09 Patient TargetsNo targets recorded. Patient Instructions Encounter Date Encounter Id Patient Instructions Last Modified By Organization Details Last Modified Time 12/28/2019 [id number] lumbar spinal stenosis: care instructions Not available 12/29/2019 00:48:02 The pain conditi on that this patient suffers from it is best treated with a multidisciplinary approach that involves increasing physical activity to combat deconditioning and worsening of the pain cycle, in psychological counseling to address the psychological effects of pain. This frequently includes the judicious use of pain medications and interventional pain procedures to decrease the pain so that they may participate in physical activities that will produce long lasting pain relief and functional improvements. The goal of our multidisciplinary pain medicine approach is to return the patient to a higher level function and to restore the ability to perform activities of daily living. E/M Code 54703: This follow up visit is a Level 3 Established Office Visit. The patient presents with problem of vos-jf-hpydimel severity. I spent 15 minutes in afti-hk-xiul time with the patient in counseling on their diagnosis, prognosis and treatment options. There is an Expanded Problem Focused History (CC, brief HPI with 1 to 3 HPI elements, plus 1 system ROS) and Expanded Problem Focused Physical Exam (6-11 bullets), and Low Complexity Medical Decision-Making (MDM). Low Complexity MDM requires 2 of 3: 2 Problem points, 2 Data points, and/or Low Risk. In this case there are 2+ Problem points for chronic established problems and Low Risk for stable presenting problems and management options, OTC drugs and therapy. Not available 12/28/2019 11:41:34 01/24/2020 [id number] lumbar spinal stenosis: care instructions Not available 01/24/2020 13:57:44 learning about r reneaef for back pain Not available 01/24/2020 13:57:44 The pain conditi on that this patient suffers from it is best treated with a multidisciplinary approach that involves increasing physical activity to combat deconditioning and worsening of the pain cycle, in psychological counseling to address the psychological effects of pain. This frequently includes the judicious use of pain medications and interventional pain procedures to decrease the pain so that they may participate in physical activities that will produce long lasting pain relief and functional improvements. The goal of our multidisciplinary pain medicine approach is to return the patient to a higher level function and to restore the ability to perform activities of daily living. PDMP shows filled on 12/30/2019 Oxycodone-Acetaminoph en 10-325 #120 Twenty-five minutes was spent with the patient. More than half of this was in direct ynel-cb-ddds discussion of their diagnoses, prognosis, and treatment options. Based on the time spent in counseling, this visit was coded as CPT# 58989. Not available 01/24/2020 13:56:37 01/29/2020 [id number] lumbar spinal stenosis: care instructions Not available 01/29/2020 10:24:22 02/21/2020 [id number] lumbar spinal stenosis: care instructions Not available 02/21/2020 20:01:41 learning about r elief for back pain Not available 02/21/2020 20:01:41 The pain conditi on that this patient suffers from it is best treated with a multidisciplinary approach that involves increasing physical activity to combat deconditioning and worsening of the pain cycle, in psychological counseling to address the psychological effects of pain. This frequently includes the judicious use of pain medications and interventional pain procedures to decrease the pain so that they may participate in physical activities that will produce long lasting pain relief and functional improvements. The goal of our multidisciplinary pain medicine approach is to return the patient to a higher level function and to restore the ability to perform activities of daily living. Twenty-five minutes was spent with the patient. More than half of this was in direct odvo-fr-qert discussion of their chronic pain and other diagnoses, long-term prognosis, and treatment options, including long-term opioid treatment. The patient continues to have chronic pain, found previously to be refractory to a reasonable course of conservative care. The patient continues to need long-term opioid therapy for their non-acute pain. Today we discussed 1) analgesia (pain relief), 2) activities of daily living (psychosocial functioning), 3) adverse effects (side effects), and looked for any 4) aberrant drug taking behavior(addiction-re lated outcomes). Based on the time spent in counseling, this visit was coded as CPT# 03250. [email or web address] Not available 02/21/2020 14:48:48 03/20/2020 [id number] lumbar spinal stenosis: care instructions Not available 03/20/2020 17:28:55 learning about r elief for back pain Not available 03/20/2020 17:28:55 The pain conditi on that this patient suffers from it is best treated with a multidisciplinary approach that involves increasing physical activity to combat deconditioning and worsening of the pain cycle, in psychological counseling to address the psychological effects of pain. This frequently includes the judicious use of pain medications and interventional pain procedures to decrease the pain so that they may participate in physical activities that will produce long lasting pain relief and functional improvements. The goal of our multidisciplinary pain medicine approach is to return the patient to a higher level function and to restore the ability to perform activities of daily living. Twenty-five minutes was spent with the patient. More than half of this was in direct vwjk-ub-luao discussion of their chronic pain and other diagnoses, long-term prognosis, and treatment options, including long-term opioid treatment. The patient continues to have chronic pain, found previously to be refractory to a reasonable course of conservative care. The patient continues to need long-term opioid therapy for their non-acute pain. Today we discussed 1) analgesia (pain relief), 2) activities of daily living (psychosocial functioning), 3) adverse effects (side effects), and looked for any 4) aberrant drug taking behavior(addiction-re lated outcomes). Based on the time spent in counseling, this visit was coded as CPT# 44005. [email or web address] Not available 03/20/2020 12:04:33 Reason for Referral None Reported. Results Created Date Observation Date Name Description Value Unit Range Abnormal Flag Note LastModifiedBy Organization Detail LastModifiedTime 12/14/19 20 12/20/2019 CMP, serum or plasm a glucose 106 mg/dL 65-99 high Fasti ng refer ence inter emeka For someo ne witho ut known diabe ariana, a gluco se value betwe en 100 and 125 mg/dL is consi stent with predi abete s and shoul d be confi rmed with a follo w-up test. Not Available [facility] [address], [place], [address], 12/20/2019 15:44:27 12/14/1912/20/2019 CMP, serum or plasm a urea nitrogen (BUN) 9 mg/dL 7-25 normal Not Available [facility] [address], [place], [address], 12/20/2019 15:44:27 12/14/1912/20/2019 CMP, serum or plasm a creatinine 0.93 mg/dL 0.60-0 .93 normal For patie nts >49 years of age, the refer ence limit for Creat inine is appro ximat sandi 13% highe r for peopl e ident ified as Afric an-Am lynne n. Not Available [facility] [address], [place], [address], 12/20/2019 15:44:27 12/14/19 20 12/20/2019 CMP, serum or plasm a eGFR non-afr. zambian 62 mL/mi n/1.7 3m2 > or = 60 normal Not Available [facility] [address], [place], [address], 12/20/2019 15:44:27 12/14/19 20 12/20/2019 CMP, serum or plasm a eGFR 72 mL/mi n/1.7 3m2 > or = 60 normal Not Available [facility] [address], [place], [address], 12/20/2019 15:44:27 12/14/19 20 12/20/2019 CMP, serum or plasm a BUN/creatini ne ratio NOT APPLIC ABLE (calc ) 6-22 Not Available [facility] [address], [place], [address], 12/20/2019 15:44:27 12/14/19 20 12/20/2019 CMP, serum or plasm a sodium 139 mmol/ L 135-14 6 normal Not Available [facility] [address], [place], [address], 12/20/2019 15:44:27 12/14/19 20 12/20/2019 CMP, serum or plasm a potassium 4.7 mmol/ L 3.5-5. 3 normal Not Available [facility] [address], [place], [address], 12/20/2019 15:44:27 12/14/19 20 12/20/2019 CMP, serum or plasm a chloride 102 mmol/ L 98-110 normal Not Available [facility] [address], [place], [address], 12/20/2019 15:44:27 12/14/19 20 12/20/2019 CMP, serum or plasm a carbon dioxide 29 mmol/ L 20-[address] [facility] [address], [place], [address], 12/20/2019 15:44:27 12/14/19 20 12/20/2019 CMP, serum or plasm a calcium 9.8 mg/dL 8.6-10 .4 normal Not Available [facility] [address], [place], [address], 12/20/2019 15:44:27 12/14/19 20 12/20/2019 CMP, serum or plasm a protein, total 6.7 g/dL 6.1-8. [address] [facility] [address], [place], [address], 12/20/2019 15:44:27 12/14/19 20 12/20/2019 CMP, serum or plasm a albumin 4.3 g/dL 3.6-5. [address] [facility] [address], [place], [address], 12/20/2019 15:44:27 12/14/19 20 12/20/2019 CMP, serum or plasm a globulin 2.4 g/dL_ (calc ) 1.9-3. 7 normal Not Available [facility] [address], [place], [address], 12/20/2019 15:44:27 12/14/19 20 12/20/2019 CMP, serum or plasm a albumin/glob ulin ratio 1.8 (calc ) 1.0-2. 5 normal Not Available [facility] [address], [place], [address], 12/20/2019 15:44:27 12/14/19 20 12/20/2019 CMP, serum or plasm a bilirubin, total 0.3 mg/dL 0.2-1. [address] [facility] [address], [place], [address], 12/20/2019 15:44:27 12/14/19 20 12/20/2019 CMP, serum or plasm a alkaline phosphatase 134 U/L 37-153 normal Not Available [facility] [employer] [facility] [address], [place], [address], 12/20/2019 15:44:27 12/14/19 20 12/20/2019 CMP, serum or plasm a AST 15 U/L 10-35 normal Not Available [facility] [address], [place], [address], 12/20/2019 15:44:27 12/14/19 20 12/20/2019 CMP, serum or plasm a ALT 14 U/L 6-[address] [facility] [address], [place], [address], 12/20/2019 15:44:27 12/14/19 20 12/20/2019 vitam in D, 1,25- dihyd angel luis, serum vitamin D, 1,25 (oh)2, total 45 pg/mL 18-72 Not Available [facility] [address], [place], [address], 12/20/2019 15:44:28 12/14/19 20 12/20/2019 vitam in D, 1,25- dihyd angel luis, serum vitamin D3, 1,25 (oh)2 45 pg/mL Not Available [facility] [employer] [facility] [address], [place], [address], 12/20/2019 15:44:28 12/14/19 20 12/20/2019 vitam in D, 1,25- dihyd angel luis, serum vitamin D2, 1,25 (oh)2 <8 pg/mL Vitam in D3, 1,25( OH)2 indic ates both endog enous produ ction and suppl ement ation . Vitam in D2, 1,25( OH)2 is an indic ator of exoge nous sourc es, such as diet or suppl ement ation . Inter preta tion and thera py are based on measu remen t of Vitam in D,1,2 5(OH) 2, Total . This test was devel oposwaldo and its gregory tical perfo rmanc e brea cteri stics have been deter mined by [facility] Curtisi charanjit, [facility], [place]. It has not been clear ed or appro myron by the FDA. This assay has been valid ated pursu ant to the CLIA regul ation s and is used for clini dipesh purpo ses. Not Available [facility] [address], [place], [address], 12/20/2019 15:44:28 12/14/19 20 12/20/2019 prote in elect ropho resis panel , serum or plasm a protein, total 6.7 g/dL 6.1-8. 1 normal Not Available [facility] [address], [place], [address], 12/20/2019 15:44:28 12/14/19 20 12/20/2019 prote in elect ropho resis panel , serum or plasm a albumin 4.1 g/dL 3.8-4. 8 normal Not Available [facility] [address], [place], [address], 12/20/2019 15:44:28 12/14/19 20 12/20/2019 prote in elect ropho resis panel , serum or plasm a alpha 1 globulin 0.4 g/dL 0.2-0. 3 high Not Available [facility] [address], [place], [address], 12/20/2019 15:44:28 12/14/19 20 12/20/2019 prote in elect ropho resis panel , serum or plasm a alpha 2 globulin 0.8 g/dL 0.5-0. 9 normal Not Available [facility] [address], [place], [address], 12/20/2019 15:44:28 12/14/19 20 12/20/2019 prote in elect ropho resis panel , serum or plasm a beta 1 globulin 0.5 g/dL 0.4-0. 6 normal Not Available [facility] [address], [place], [address], 12/20/2019 15:44:28 12/14/19 20 12/20/2019 prote in elect ropho resis panel , serum or plasm a beta 2 globulin 0.3 g/dL 0.2-0. 5 normal Not Available [facility] [address], [place], [address], 12/20/2019 15:44:28 12/14/19 20 12/20/2019 prote in elect ropho resis panel , serum or plasm a gamma globulin 0.7 g/dL 0.8-1. 7 low Not Available [facility] [address], [place], [address], 12/20/2019 15:44:28 12/14/19 20 12/20/2019 prote in elect ropho resis panel , serum or plasm a interpretati on Alpha -1 globu navya incre ase noted . Consi stent with hypog ammag lobul inemi a. Serum free light chain s or urine immun ofixa tion shoul d be consi dered if plasm a cell dyscr asias are a possi ble clini dipesh diagn osis. Not Available [facility] [address], [place], [address], 12/20/2019 15:44:28 12/14/19 20 12/20/2019 TSH, serum or plasm a TSH w/reflex to FT4 0.55 mIU/L 0.40-4 .50 normal Not Available [facility] [address], [place], [address], 12/20/2019 15:44:29 12/14/19 20 12/20/2019 PT/IN R INR 1.0 normal Refer ence Range 0.9-1 .1 Moder ate-i ntens ity Warfa rin Thera py 2.0-3 .0 Highe r-int ensit y Warfa rin Thera py 3.0-4 .0 Not Available [facility] [address], [place], [address], 12/20/2019 15:44:29 12/14/19 20 12/20/2019 PT/IN R PT 10.1 sec 9.0-11 .5 normal For more infor idalia veliz on this test, go to: http: //[facility] edith veliz.que stdia gnost ics.c om/fa q/FAQ 104 Not Available [facility] [address], [place], [address], 12/20/2019 15:44:29 12/14/19 20 12/20/2019 eryth rocyt e sedim entat ion rate by westjuanito finneyren metho d sed rate by modified westcliffordren 2 mm/h < or = 30 normal Not Available [facility] [address], [place], [address], 12/20/2019 15:44:29 11/30/19 20 11/08/2019 MRI, thora cic spine , w/o contr ast No observ ation record ed. [email or web address] [facility] [address], [place], [address], 11/30/2019 14:53:58 11/30/19 20 11/08/2019 MRI, lumba r spine , w/o contr ast No observ ation record ed. [email or web address] [facility] [address], [place], [address], 11/30/2019 14:54:24 12/28/19 20 12/14/2019 MRI, lumba r spine , w/o contr ast No observ ation record ed. [address], [place], [address], 01/24/2020 13:27:06 01/03/20 20 12/14/2019 MRI, lumba r spine , w/o contr ast No observ ation record ed. [address] [facility] [address], [place], [address], 01/24/2020 13:27:06 Result Notes None recorded. Problems Name Problem SNOMED Code Status Onset Date Resolution Date Notes Provider Name and Address Organization Details Recorded Time Chronic pain 60035857 Active 2019 Lizette Childress [facility] 0 13:51:58 Low back pain 136173592 Active 2019 Finesse Maza MD [address], [place], [address], [facility] [place] 0 16:33:35 History of vertebral fracture 181359597 Active 2019 Finesse Maza MD [address], [place], [address], [facility] [place] 0 16:33:37 History of pathologica l vertebral fracture 3854456637463 05 Active 2019 Finesse Maza MD [address], [place], [address], [facility] [place] 0 16:33:38 Spinal stenosis of lumbar region 74041771 Active 2019 Finesse Maza MD [address], [place], [address], [facility] [place] 0 16:36:28 Arthropathy of lumbar facet joint 307338898 Active 2019 Finesse Maza MD [address], [place], [address], [facility] [place] [facility] 0 16:36:34 Arthropathy of spinal facet joint 871146851 Active 2019 Finesse Maza MD [address], [place], [address], [facility] 0 16:36:36 Lumbar facet joint pain 194496965 Active 2019 Finesse Maza MD [address], [place], [address], [facility] 0 16:36:38 Screening for osteoporosi s Active 2019 Fineses Maza MD [address], [place], [address], [facility] 0 16:36:42 Thoracic spondylosis without myelopathy 930272728 Active 2019 Finesse Maza MD [address], [place], [address], [facility] 0 16:36:43 Problem Notes None recorded. Procedures Surgical History Date Name Laterality Status Provider Name and Address Organization Details Recorded Time 01/29/20 20 ASC Bilateral Transforaminal completed Finesse Maza MD [address], [place], [address], [facility] 01/29/2020 10:24:10 06/27/18 90 Cholecystectomy [facility] [place] 11/30/2019 13:52:35 bilateral extraction of cataracts completed Finesse Maza MD [address], [place], [address], [facility] 11/30/2019 15:10:57 excision of cyst of breast completed Finesse Maza MD [address], [place], [address], [facility] 11/30/2019 15:11:55 Tonsillectomy completed Finesse Maza MD [address], [place], [address], [facility] 11/30/2019 15:20:53 Imaging Results Imaging Date Name Status LastModified by Organiz ation Details LastModified Time 11/08/2019 MRI, thoracic spine, w/o contrast completed [address] [facility] [address], [place], [address], 11/30/2019 14:53:58 11/08/2019 MRI, lumbar spine, w/o contrast completed [id number] [facility] [address], [place], [address], 11/30/2019 14:54:24 12/14/2019 MRI, lumbar spine, w/o contrast completed [address] [facility] [address], [place], [address], 01/24/2020 13:27:06 12/14/2019 MRI, lumbar spine, w/o contrast completed [address] [facility] [address], [place], [address], 01/24/2020 13:27:06 Procedure Notes None recorded. Medical Equipment None Reported. Allergies Allergen ID Allergen Name Allergen Category Reaction Reaction Severity Criticality Documentation Date Start Date Code Code System Note Provider Name and Address Organization Details Recorded Time 6884 erythromy roro medicatio n hives Not available Not available 11/30/2019 4053 RxNorm Finesse Maza MD [address], [place], [address], [facility] 0 13:57:34 Medications Name Sig Start Date Stop Date Status Note LastModified by Organization Details LastModified Time escitalopra m oxalate 10 mg tabs active Not Available Not Available N ot Available diazepam 5 mg tabs 01/06 completed Not Available Not Available Not Available oxycod/apap tab 10-325mg 01/23 completed Not Available Not Available Not Available smz/tmp ds tab 800-160 active Not Available Not Available Not Available hydroco/apa p tab 5-325mg 01/06 completed Not Available Not Available Not Available betamethaso ne dipropionat e 0.05 % lotn 01/06 completed Not Available Not Available Not Available Prescriptio n - Prior Authorizati on Request active Not Available Not Available N ot Available proair hfa 108 mcg/act aers active Not Available Not Available Not Available hydrocodone 5 mg-acetamin ophen 325 mg tablet active Not Available Not Available No t Available prednisone 20 mg tablet TAKE 3 TABLETS BY MOUTH EVERY DAY FOR 5 DAYS 01/06 completed Not Available Not Available Not Available sulfamethox azole 800 mg-trimetho prim 160 mg tablet active Not Available Not Available Not Available oxycodone-a cetaminophe n 10 mg-325 mg tablet Take 1 tablet every 6 hours by oral route for 30 days. active Not Available Not Available No t Available cephalexin 500 mg capsule active Not Available Not Available Not Available albuterol sulfate HFA 90 mcg/actuati on aerosol inhaler active Not Available Not Available Not Available betamethaso ne dipropionat e 0.05 % lotion APPLY A FEW DROPS TO THE AFFECTED AREA(S) BY TOPICAL ROUTE 2 TIMES PER DAY IN THE MORNING AND AT BEDTIME ; RUB IN GENTLY AND COMPLETEL Y active Not Available Not Available No t Available diazepam 5 mg tablet active Not Available Not Available No t Available escitalopra m 10 mg tablet Take 1 tablet every day by oral route. active Not Available Not Available No t Available Tymlos 80 mcg/dose (3,120 mcg/1.56 mL) subcutaneou s pen injector ADMINISTE R 1.56 ML UNDER THE SKIN EVERY NIGHT AT BEDTIME active Not Available Not Available No t Available Vitals Date Recorded Body height Body mass index (BMI) Body weight Provider Name and Address Organization Details Last Updated DateTime 12/28/2019 162.56 cm 29.2 kg/m2 59843.7 g Katie Moeller [facility] 12/28/2019 10:34:50 Date Recorded Body height Body mass index (BMI) Body weight Provider Name and Address Organization Details Last Updated DateTime 01/24/2020 162.56 cm 30.4 kg/m2 16585.85 g Katie Sajan [facility] 01/24/2020 13:12:58 Date Recorded Body height Provider Name an d Address Organization Details Last Updated DateTime 01/29/2020 162.56 cm Tameka Martinez [facility] 01/29/2020 07:43:22 Date Recorded Body height Body mass index (BMI) Body weight Provider Name and Address Organization Details Last Updated DateTime 02/21/2020 162.56 cm 28 kg/m2 93861.56 g Tameka Martinez [facility] 02/21/2020 14:23:16 Date Recorded Body height Body mass index (BMI) Body weight Provider Name and Address Organization Details Last Updated DateTime 03/20/2020 162.56 cm 27.5 kg/m2 69796.78 g Tameka Martinez [facility] 03/20/2020 11:48:51 Social History Question Answer Notes LastModified by Organizat ion Details LastModified Time Tobacco Smoking Status Current Every [facility] 13:54:20 Auto Related Injury? No [email or web address] Information not available 11/30/2019 Are You Currently Employed? No [email or web address] Information not available 11/30/2019 Which Illicit Or Recreational Drugs Have You Used? Denies Any Illicit Drug Use Information not available 11/30/2019 What Is Your Occupation? Disabled Information not available 11/30/2019 Live Alone Or With Others? Alone [email or web address] Information not available 11/30/2019 How Much Tobacco Do You Smoke? 1 PPD Information not available 11/30/2019 How Many Years Have You Smoked Tobacco? 5 Information not available 11/30/2019 Sex: Unknown Functional Status None recorded. Mental Status None recorded. Family History Nothing Reported. Medical History Condition Response Coronary Artery Disease N Gout N Atrial Fibrillation N Hernia N Depression N COPD N Peripheral Arterial Disease N Congestive Heart Failure N Peripheral Neuropathy N Varicose Veins N Anxiety Disorder Y Deep Vein Thrombosis/Blood Clots N Restless Leg Syndrome N Arthritis Y Acid Reflux (GERD) N Cancer Y Stroke N Nephrolithiasis N Vertebral Fracture Y Rheumatoid Arthritis N Fibromyalgia Y Headaches N Irritable Bowel Syndrome N Kidney Disease N Thyroid Problems N Osteoporosis/Osteopenia Y Anemia N Multiple Sclerosis N Chron's disease N Heart Attack (CT) N Diabetes N Gastric Ulcer N Blood Disorder N MIgraines N AIDS/HIV N Asthma N Transitory Ischemic Attack (TIA) Y Lupus N Psoriasis N Epilepsy/Seizures N Bipolar Disorder N Sleep Apnea N Hepatitis N Cirrhosis N Sjogren's Disease N Hypertension N Gynecological HistoryNo gynecological history recorded. Obstetrics History GPAL:G 0 P 0 0 0 0 Past Encounters Encounter ID Performer Location Encounter Start Date Encounter Closed Date Diagnosis/Indication Diagnosis SNOMED-CT Code Diagnosis ICD10 Code Diagnosis Note [id number] Finesse Maza MD [facility]ly [facility] [address] [facility] [address] [place] [address] 11/30/2019 13:14:03 11/30/2019 16:45:37 Low back pain 262356276 M54.5 History of vertebral fracture 621649003 Z87.311 T12 and L2 History of pathological vertebral fracture 4598498656 98945 Z87.311 Spinal neal nosis of lumbar region 46578676 M48.061 Arthropath y of lumbar facet joint 410852527 M46.96 Arthropath y of spinal facet joint 295695275 M12.88 Lumbar fac et joint pain 421925164 M54.5 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 415548485 M47.814 Screening for osteoporosis 497680437 Z13.820 [id number] Finesse Maza MD [facility] [address] [facility] [address] [place] [address] 12/28/2019 10:28:48 12/28/2019 11:46:56 History of pathological vertebral fracture 2836457624 12532 Z87.311 Spinal neal nosis of lumbar region 70192984 M48.061 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 679882266 M47.814 Low back pain 766881904 M54.5 History of vertebral fracture 743628231 Z87.311 T12 and L2 Arthropath y of lumbar facet joint 713710379 M46.96 Arthropath y of spinal facet joint 120795458 M12.88 Lumbar fac et joint pain 010991187 M54.5 Screening for osteoporosis 820488197 Z13.820 [id number] Finesse Maza MD [facility]ly [facility] [address] [facility] [address] [place] [address] 01/24/2020 13:02:09 01/24/2020 14:00:29 History of pathological vertebral fracture 5337204782 60180 Z87.311 Spinal neal nosis of lumbar region 56360159 M48.061 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 920626741 M47.814 Low back pain 280708416 M54.5 History of vertebral fracture 308804703 Z87.311 T12 and L2 Arthropath y of lumbar facet joint 947725992 M46.96 Arthropath y of spinal facet joint 307770957 M12.88 Lumbar fac et joint pain 679305663 M54.5 Screening for osteoporosis 144178912 Z13.820 [id number] Finesse Maza MD [facility] [address] [place] [address] 01/29/2020 00:04:26 01/29/2020 00:04:26 Spinal stenosis of lumbar region 62037167 M48.061 [id number] Finesse Maza MD [facility] [address] [facility] [address] [place] [address] 02/21/2020 14:19:42 02/21/2020 15:19:01 History of pathological vertebral fracture 1837518559 73334 Z87.311 Spinal neal nosis of lumbar region 56572455 M48.061 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 115818599 M47.814 Low back pain 069856836 M54.5 History of vertebral fracture 772975801 Z87.311 T12 and L2 Arthropath y of lumbar facet joint 864169455 M46.96 Arthropath y of spinal facet joint 200191101 M12.88 Lumbar fac et joint pain 464032844 M54.5 Screening for osteoporosis 607944856 Z13.820 [id number] Finesse Maza MD [facility] [address] [facility] [address] [place] [address] 03/20/2020 11:47:24 03/20/2020 12:07:03 History of pathological vertebral fracture 8619844264 45044 Z87.311 Spinal neal nosis of lumbar region 98632935 M48.061 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 769994764 M47.814 Low back pain 470132358 M54.5 History of vertebral fracture 079613128 Z87.311 T12 and L2 Arthropath y of lumbar facet joint 188819164 M46.96 Arthropath y of spinal facet joint 950588978 M12.88 Lumbar fac et joint pain 935574694 M54.5 Screening for osteoporosis 821042030 Z13.820 Health Concerns Section Related Observation LastModified by Organization Detai ls LastModified Time None Recorded Concern Status LastModified by Organization Details LastModified Time None Recorded Advance Directives Directive None Recorded Payers Encounter Date Sequence Insurance Name Policy Number Policy [place] Covered Member ID [place] Member ID Guarantor Name 12/28/2019 1 [facility] [id number] Katey Bernard Edna Alvaro [id number] Katey Gustafsony Alvaro 12/28/2019 2 [place] [employer] Katey Joana Alvaro [id number] Katey Joana Alvaro 01/24/2020 1 [facility] [id number] Katey Bernard Edna Alvaro [id number] Katey Joana Alvaro 01/24/2020 2 [place] [employer] Katey Joana Alvaro [id number] Katey Joana Alvaro 01/29/2020 1 [facility] [id number] Katey Bernard Edna Alvaro [id number] Katey Joana Alvaro 01/29/2020 2 [place] [employer] Katey Joana Alvaro [id number] Katey Joana Alvaro 02/21/2020 1 [facility] [id number] Katey Bernard Edna Alvaro [id number] Katey Gustafsony Alvaro 02/21/2020 2 [place] [employer] Katey Joana Alvaro [id number] Katey Gustafsony Alvaro 03/20/2020 1 [facility] [id number] Katey Bernard Edna Alvaro [id number] Katey John 03/20/2020 2 [place] [facility] [employer] Katey John [id number] Katey John Notes Date Note Type Note Provider Name and Address Organization Details Recorded Time 12/28/2019 text/html Pain Management L-spineReported bypatient.Location :bilateral LE radiation; LBP; left buttock pain; left hip pain; left groin pain; right buttock pain; right hip pain; right groin pain; bone spurs in coccyx Severity:current pain level 10/10;worsening Duration:constant Onset/Timing:chron ic Context:fall Alleviating Factors:medication Aggravating Factors:carrying; twisting; lifting; going from sit to stand; sitting; standing; walking Associated Symptoms:weakness; numbness Radiation:bilatera l LE Prior Imaging:MRI Prior EMG:none Previous Surgery:none Previous Injections:none Previous PT:none Previous Laser Machine Operator:none Finesse Maza MD [address] [place], [address], [facility] 12/29/2019 00:48:14 01/24/2020 text/html Pain Management L-spineReported bypatient.Location :bilateral LE radiation; LBP; left buttock pain; left hip pain; left groin pain; right buttock pain; right hip pain; right groin pain; bone spurs in coccyx Quality:numbness;a blanco Severity:current pain level 10/10;worsening Duration:constant Onset/Timing:chron ic Context:fall Alleviating Factors:medication Aggravating Factors:carrying; twisting; lifting; going from sit to stand; sitting; standing; walking Associated Symptoms:weakness; numbness Radiation:bilatera l LE Prior Imaging:MRI Prior EMG:none Previous Surgery:none Previous Injections:none Previous PT:none Previous Laser Machine Operator:none Finesse Maza MD [address] [place], [address], [facility] 01/24/2020 13:57:49 02/21/2020 text/html Pain Management L-spineReported bypatient.Location :bilateral LE radiation; LBP; left buttock pain; left hip pain; left groin pain; right buttock pain; right hip pain; right groin pain; bone spurs in coccyx Quality:numbness;a blanco Severity:current pain level 9/10;worsening Duration:constant Onset/Timing:chron ic Context:fall Alleviating Factors:medication Aggravating Factors:carrying; twisting; lifting; going from sit to stand; sitting; standing; walking Associated Symptoms:weakness; numbness Radiation:bilatera l LE Prior Imaging:MRI Prior EMG:none Previous Surgery:none Previous Injections:none Previous PT:none Previous Laser Machine Operator:none Finesse Maza MD [address] [place], [address], [facility] 02/21/2020 20:01:45 03/20/2020 text/html Pain Management L-spineReported bypatient.Location :bilateral LE radiation; LBP; left buttock pain; left hip pain; left groin pain; right buttock pain; right hip pain; right groin pain; bone spurs in coccyx Quality:numbness;a blanco Severity:current pain level 9/10;worsening Duration:constant Onset/Timing:chron ic Context:fall Alleviating Factors:medication Aggravating Factors:carrying; twisting; lifting; going from sit to stand; sitting; standing; walking Associated Symptoms:weakness; numbness Radiation:bilatera l LE Prior Imaging:MRI Prior EMG:none Previous Surgery:none Previous Injections:none Previous PT:none Previous Laser Machine Operator:none Finesse Maza MD [address] [place], [address], [facility] 03/21/2020 16:33:11 OBGyn Episode No OBEpisode recorded.
--- OUTSIDE RECORDS SUMMARY | 2024-10-23 17:43 | XMS_ITS | Encounter Summary ---
Author Organization [facility] Address [address] [place] [address] Phone Care Team Providers Care Nuclear Technologist Name Role Phone Marvin Shaikh MD Unavailable [phone] John Paul Sharif MD Unavailable [phone] Joni Manning MD Unavailable [phone] Mark Bettencourt DO Unavailable [phone] Joni Ortega MD Primary Care Provider [phone] Gabrielle Jones MD Unavailable Encounter Details Date Type Department Care Team (Late st Contact Info) Description 08/23/2022 Telephone [facility] [address] [place] [address] Joni Ortega MD #[address] [address] Social History Tobacco Use Types Packs/Day Years [...] Recorded In the last 10 days, have yo u been in contact with someone who was confirmed or suspected to have Coronavirus/COVID-19? No / Unsure 08/24/2022 12:21 PM CLIENT PROFESSIONAL documented as of this encounter Plan of Treatment Upcoming Encounters Date Type Department Care Team (Late st Contact Info) Description 10/29/2024 1:30 PM CDT Office Visit [facility] - [facility] [address] [place] [address] Gabrielle Jones MD #2 [facility] [address] [place] [address] documented as of this encounter Visit Diagnoses Not on filedocumented in this encounter Additional Health Concerns Assessment Noted Time PHQ-9 Depression Total Score: 0 11/12/19 12:00 PM CDT documented as of this encounter Care Teams Nuclear Technologist Relationship Specialty Start Date End Date Joni Ortega MD #2 [facility] [address] [place] [address] PCP - General Family Medicine 12/26/20 Marvin Shaikh MD [address] [place] [address] Consulting Physician Oncology 07/22/17 John Paul Sharif MD [address] [place] [address] Consulting Physician Orthopaedic Surgery 07/22/17 Joni Manning MD [address] [facility] [address] [place] [address] Consulting Physician Neurology 02/15/18 Mark Bettencourt DO [address] [facility] [address] [place] [address] Gastroenterology 06/07/18 Gabrielle Jones MD #[address] [facility] [address] [place] [address] Consulting Physician Orthopaedic Surgery 09/17/24 documented as of this encounter
--- OUTSIDE RECORDS SUMMARY | 2024-10-23 17:43 | XMS_ITS | Encounter Summary ---
Author Organization [facility] Address [address] [place] [address] Phone Care Team Providers Care Abrasive Water Jet Cutter Operator Name Role Phone Marvin Shaikh MD Unavailable [phone] John Paul Sharif MD Unavailable [phone] Joni Manning MD Unavailable [phone] Mark Bettencourt DO Unavailable [phone] Joni Ortega MD Primary Care Provider [phone] Gabrielle Jones MD Unavailable Reason for Visit * Reason Comments Medication Refill Encounter Details Date Type Department Care Team (Late st Contact Info) Description 10/09/2024 Refill [facility] - Family Medicine [facility] #2 [place] [address] Nawaf Mancilla MD #[address] [address] Medication Refill Social History Tobacco Use Types [...] on file documented as of this encounter Plan of Treatment Upcoming Encounters Date Type Department Care Team (Late st Contact Info) Description 10/29/2024 1:30 PM CDT Office Visit [facility] - Orthopedic Surgery [facility]3] [address] [place] [address] Gabrielle Jones MD [address] [facility] [address] [place] [address] documented as of this encounter Visit Diagnoses Diagnosis Humeral head fracture, left, closed, initial encounter documented in this encounter Additional Health Concerns Assessment Noted Time PHQ-9 Depression Total Score: 0 09/14/19 25 2:00 PM CDT documented as of this encounter Care Teams Abrasive Water Jet Cutter Operator Relationship Specialty Start Date End Date Joni Ortega MD [facility] [address] [place] [address] PCP - General Family Medicine 12/26/20 Marvin Shaikh MD [address] [place] [address] Consulting Physician Oncology 07/22/17 John Paul Sharif MD [address] [place] [address] Consulting Physician Orthopaedic Surgery 07/22/17 Joni Manning MD 4 [facility] [address] [place] [address] Consulting Physician Neurology 02/15/18 Mark Bettencourt DO 4 [facility] [address] [place] [address] Gastroenterology 06/07/18 Gabrielle Jones MD #2 [place] [address] Consulting Physician Orthopaedic Surgery 09/17/24 documented as of this encounter
== END 2024-10-23 17:13 | disposition left against medical advice (07) ==
LOC: ANHED 17:10
PROVIDERS: Emergency Medicine; Emergency Provider Physician Assistant
DX: R06.02 Shortness of breath (principal); F17.210 Nicotine dependence, cigarettes, uncomplicated; J45.909 Unspecified asthma, uncomplicated; G89.29 Other chronic pain; E78.5 Hyperlipidemia, unspecified; J44.9 Chronic obstructive pulmonary disease, unspecified; Z86.73 Personal history of transient ischemic attack (TIA), and cerebral infarction without residual deficits; Z85.3 Personal history of malignant neoplasm of breast; M79.7 Fibromyalgia; F41.9 Anxiety disorder, unspecified
CPT/HCPCS: 36415; 85025; 85055; 93005; 99284

== ENCOUNTER 2024-11-14 15:31 | Emergency (ER) | payer MEDICARE, MEDICAID, SELFPAY ==
--- OUTSIDE RECORDS SUMMARY | 2024-11-14 15:35 | XMS_ITS | Encounter Summary ---
Author Organization [facility] Address [address] [place] [address] Phone Care Team Providers Care Chief Medical Officer Name Role Phone Marvin Shaikh MD Unavailable [phone] John Paul Sharif MD Unavailable [phone] Joni Manning MD Unavailable [phone] Joni Ortega MD Primary Care Provider [phone] Mark Bettencourt DO Unavailable [phone] Garrison Martinez MD Primary Care Provider [phone] Joni Ortega MD Primary Care Provider [phone] Gabrielle Jones MD Unavailable Reason for Visit * Reason Onset Date Comments Other 07/10/2020 Encounter Details Date Type Department Care Team (Late st Contact Info) Description 07/10/2020 Telephone [facility] [address] [place] [address] Joni Ortega MD #[address] [address] Other Social History Tobacco Use Types Packs/Day Years Used Date Smoking Tobacco: Never Smokeless Tobacco: Never Alcohol Use Standard Drinks/Week Comments No 0 (1 standard drink = 0.6 oz pur e alcohol) PHQ-2 Answer Date Recorded Total Score - Questions 1-9 0 11/0 11/2019 Sexually Active Control Partners Comments Never [...] Anna Andres RN - 07/10/2020 11:21 AM 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 Per review of chart last year she received Amoxicillin. Gave patient this information. Patient did not want to be triaged just wanted the information. She ended call. SILICON PREPARATION WORKER documented in this encounter Plan of Treatment Not on file documented as of this encounter Visit Diagnoses Not on filedocumented in this encounter Additional Health Concerns Assessment Noted Time PHQ-9 Depression Total Score: 0 05/02/20 20 10:00 AM POLYSILICON PREPARATION WORKER documented as of this encounter Care Teams Chief Medical Officer Relationship Specialty Start Date End Date Joni Ortega MD #[address] [address] PCP - General Family Medicine 03/07/18 12/23/20 Garrison Martinez MD #[address] [address] PCP - General Family Medicine 12/24/20 12/25/20 Joni Ortega MD #[address] [address] PCP - General Family Medicine 12/26/20 Marvin Shaikh MD [address] [place] [address] Consulting Physician Oncology 07/22/17 John Paul Sharif MD [address] [place] [address] Consulting Physician Orthopaedic Surgery 07/22/17 Joni Manning MD [address] [facility] [address] [place] [address] Consulting Physician Neurology 02/15/18 Mark Bettencourt DO #[address] [facility] [address] [place] [address] Gastroenterology 06/07/18 Gabrielle Jones MD #[address] [facility] [address] [place] [address] Consulting Physician Orthopaedic Surgery 09/17/24 documented as of this encounter
--- OUTSIDE RECORDS SUMMARY | 2024-11-14 15:35 | XMS_ITS | Data Portability ---
Author Organization [facility], [facility] Address [address] [place] [id number] Assessment Encounter Date Assessment Date Assessment LastModified [...] to conduct telemedicine services has been approved. [place] law authorizes licensed health care providers to practice telehealth, as long as such methods are used in a manner that is consistent with their profession's acceptable practices and standards of care. Telehealth practice standards can be found in section 456.47(2) of the [place] Statutes. The use of telehealth can be [...] agreed to complete today's visit using the [email or web address] telemedicine ok that allows audio and video [...] fibromyalgia syndrome. This patient is originally from [place] and moved to [place] on 06/2019 (sadly she lost her during [...] care of a pain management physician in [place] who did conservative treatment only but help [...] of the and had a very poor wlgotio-ye-fkmw due to pain. I was able to [...] etc. 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 Plan: [...] as documented in the patient's medical record. [employer] voice-recognition was used to prepare this written [...] to conduct telemedicine services has been approved. [place] law authorizes licensed health care providers to practice telehealth, as long as such methods are used in a manner that is consistent with their profession's acceptable practices and standards of care. Telehealth practice standards can be found in section 456.47(2) of the [place] Statutes. The use of telehealth can be [...] will continue to monitor the patient's condition. [employer] voice-recognition was used to prepare this written [...] to conduct telemedicine services has been approved. [place] law authorizes licensed health care providers to practice telehealth, as long as such methods are used in a manner that is consistent with their profession's acceptable practices and standards of care. Telehealth practice standards can be found in section 456.47(2) of the [place] Statutes. The use of telehealth can be [...] agreed to complete today's visit using the [email or web address] telemedicine ok that allows audio and video [...] fibromyalgia syndrome. This patient is originally from [place] and moved to [place] on 06/2019 (sadly she lost her during [...] care of a pain management physician in [place] who did conservative treatment only but help [...] of the and had a very poor fopzwqy-ir-yczb due to pain. I was able to [...] etc. 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 Plan: [...] as documented in the patient's medical record. [employer] voice-recognition was used to prepare this written [...] to conduct telemedicine services has been approved. [place] law authorizes licensed health care providers to practice telehealth, as long as such methods are used in a manner that is consistent with their profession's acceptable practices and standards of care. Telehealth practice standards can be found in section 456.47(2) of the [place] Statutes. The use of telehealth can be [...] agreed to complete today's visit using the [email or web address] telemedicine ok that allows audio and video [...] to conduct telemedicine services has been approved. [place] law authorizes licensed health care providers to practice telehealth, as long as such methods are used in a manner that is consistent with their profession's acceptable practices and standards of care. Telehealth practice standards can be found in section 456.47(2) of the [place] Statutes. The use of telehealth can be [...] will continue to monitor the patient's condition. [employer] voice-recognition was used to prepare this written [...] to conduct telemedicine services has been approved. [place] law authorizes licensed health care providers to practice telehealth, as long as such methods are used in a manner that is consistent with their profession's acceptable practices and standards of care. Telehealth practice standards can be found in section 456.47(2) of the [place] Statutes. The use of telehealth can be [...] agreed to complete today's visit using the [email or web address] telemedicine ok that allows audio and video [...] fibromyalgia syndrome. This patient is originally from [place] and moved to [place] on 06/2019 (sadly she lost her during [...] care of a pain management physician in [place] who did conservative treatment only but help [...] of the and had a very poor oksjpko-fq-pppk due to pain. I was able to [...] etc. 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 Plan: [...] as documented in the patient's medical record. [employer] voice-recognition was used to prepare this written [...] recent procedure. She is currently driving to [place], [place] from [place]. Her qilzax-sb-jzy just so she is going to visit [...] to conduct telemedicine services has been approved. [place] law authorizes licensed health care providers to practice telehealth, as long as such methods are used in a manner that is consistent with their profession's acceptable practices and standards of care. Telehealth practice standards can be found in section 456.47(2) of the [place]. The use of telehealth can be [...] agreed to complete today's visit using the [email or web address] telemedicine ok that allows audio and video [...] to conduct telemedicine services has been approved. [place] law authorizes licensed health care providers to practice telehealth, as long as such methods are used in a manner that is consistent with their profession's acceptable practices and standards of care. Telehealth practice standards can be found in section 456.47(2) of the [place]. The use of telehealth can be [...] agreed to complete today's visit using the [email or web address] telemedicine ok that allows audio and video [...] to conduct telemedicine services has been approved. [place] law authorizes licensed health care providers to practice telehealth, as long as such methods are used in a manner that is consistent with their profession's acceptable practices and standards of care. Telehealth practice standards can be found in section 456.47(2) of the [place] Statutes. The use of telehealth can be [...] will continue to monitor the patient's condition. [employer] voice-recognition was used to prepare this written [...] to conduct telemedicine services has been approved. [place] law authorizes licensed health care providers to [...] agreed to complete today's visit using the [email or web address] telemedicine ok that allows audio and video [...] fibromyalgia syndrome. This patient is originally from [place] and moved to [place] on 06/2019 (sadly she lost her during [...] care of a pain management physician in [place] who did conservative treatment only but help [...] of the and had a very poor bzshnij-nh-xkrq due to pain. I was able to [...] etc. 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 Plan: [...] as documented in the patient's medical record. [employer] voice-recognition was used to prepare this written [...] id hormone), intact, serum or plasma 2019 [employer] [facility], [address], [place], [address], 0 20:05:05 Referral None recorded. Procedures None recorded. Surgeries None recorded. Imaging None recorded. Medication Orders Tymlos 80 mcg/dose (3,120 mcg/1.56 mL) subcutaneo us pen injector 2019 INTERFACE [id number], [address], [place], [place], [id number], 0 17:29:00 oxycodone- acetaminop hen 10 mg-325 mg tablet 2019 [id number], [address], [place], [place], [id number], 0 20:01:49 oxycodone- acetaminop hen 10 mg-325 mg tablet 2019 020 INTERFACE [facility][id number], [address], [place], [place], [id number], 0 13:57:53 oxycodone- acetaminop hen 10 mg-325 mg tablet 2019 020 INTERFACE [facility] #[id number], [address], [place], [place], [id number], 0 00:48:09 Patient TargetsNo targets recorded. Patient Instructions Encounter Date Encounter Id Patient Instructions Last Modified By Organization Details Last Modified Time 12/28/2019 [id number] lumbar spinal stenosis: care instructions Not available [...] perform activities of daily living. E/M Code 48322: This follow up visit is a Level 3 Established Office Visit. The patient presents with problem of hos-oc-ocfjlamy severity. I spent 15 minutes in nmqp-ao-znnb time with the patient in counseling on [...] and therapy. Not available 12/28/2019 11:41:34 01/24/2020 [id number] lumbar spinal stenosis: care instructions Not available [...] than half of this was in direct gnzl-mc-fcum discussion of their diagnoses, prognosis, and treatment options. Based on the time spent in counseling, this visit was coded as CPT# 48225. Not available 01/24/2020 13:56:37 01/29/2020 [id number] lumbar spinal stenosis: care instructions Not available 01/29/2020 10:24:22 02/21/2020 [id number] lumbar spinal stenosis: care instructions Not available [...] than half of this was in direct papa-im-vwhr discussion of their chronic pain and other [...] counseling, this visit was coded as CPT# 93998. [email or web address] Not available 02/21/2020 14:48:48 03/20/2020 [id number] lumbar spinal stenosis: care instructions Not available [...] than half of this was in direct wxwv-ze-vxbm discussion of their chronic pain and other [...] counseling, this visit was coded as CPT# 85348. [email or web address] Not available 03/20/2020 12:04:33 Reason for [...] with a follo w-up test. Not Available [facility] [address], [place], [address], 12/20/2019 15:44:27 12/14/1912/20/2019 CMP, serum or plasm a urea nitrogen (BUN) 9 mg/dL 7-25 normal Not Available [facility] [address], [place], [address], 12/20/2019 15:44:27 12/14/1912/20/2019 CMP, serum or plasm a creatinine 0.93 mg/dL 0.60-0 .93 normal For patie nts >49 years of age, the refer ence limit for Creat inine is appro ximat sandi 13% highe r for peopl e ident ified as Afric an-Am lynne n. Not Available [facility] [address], [place], [address], 12/20/2019 15:44:27 12/14/19 20 12/20/2019 CMP, serum or plasm a eGFR non-afr. gibraltarian 62 mL/mi n/1.7 3m2 > or = 60 normal Not Available [facility] [address], [place], [address], 12/20/2019 15:44:27 12/14/19 20 12/20/2019 CMP, serum or plasm a eGFR 72 mL/mi n/1.7 3m2 > or = 60 normal Not Available [facility] [address], [place], [address], 12/20/2019 15:44:27 12/14/19 20 12/20/2019 CMP, serum or plasm a BUN/creatini ne ratio NOT APPLIC ABLE (calc ) 6-22 Not Available [facility] [address], [place], [address], 12/20/2019 15:44:27 12/14/19 20 12/20/2019 CMP, serum or plasm a sodium 139 mmol/ L 135-14 6 normal Not Available [facility] [address], [place], [address], 12/20/2019 15:44:27 12/14/19 20 12/20/2019 CMP, serum or plasm a potassium 4.7 mmol/ L 3.5-5. 3 normal Not Available [facility] [address], [place], [address], 12/20/2019 15:44:27 12/14/19 20 12/20/2019 CMP, serum or plasm a chloride 102 mmol/ L 98-110 normal Not Available [facility] [address], [place], [address], 12/20/2019 15:44:27 12/14/19 20 12/20/2019 CMP, serum or plasm a carbon dioxide 29 mmol/ L 20-[address] [facility] [address], [place], [address], 12/20/2019 15:44:27 12/14/19 20 12/20/2019 CMP, serum or plasm a calcium 9.8 mg/dL 8.6-10 .4 normal Not Available [facility] [address], [place], [address], 12/20/2019 15:44:27 12/14/19 20 12/20/2019 CMP, serum or plasm a protein, total 6.7 g/dL 6.1-8. [address] [facility] [address], [place], [address], 12/20/2019 15:44:27 12/14/19 20 12/20/2019 CMP, serum or plasm a albumin 4.3 g/dL 3.6-5. [address] [facility] [address], [place], [address], 12/20/2019 15:44:27 12/14/19 20 12/20/2019 CMP, serum or plasm a globulin 2.4 g/dL_ (calc ) 1.9-3. 7 normal Not Available [facility] [address], [place], [address], 12/20/2019 15:44:27 12/14/19 20 12/20/2019 CMP, serum or plasm a albumin/glob ulin ratio 1.8 (calc ) 1.0-2. 5 normal Not Available [facility] [address], [place], [address], 12/20/2019 15:44:27 12/14/19 20 12/20/2019 CMP, serum or plasm a bilirubin, total 0.3 mg/dL 0.2-1. [address] [facility] [address], [place], [address], 12/20/2019 15:44:27 12/14/19 20 12/20/2019 CMP, serum or plasm a alkaline phosphatase 134 U/L 37-153 normal Not Available [facility] [address], [place], [address], 12/20/2019 15:44:27 12/14/19 20 12/20/2019 CMP, serum or plasm a AST 15 U/L 10-35 normal Not Available [facility] [address], [place], [address], 12/20/2019 15:44:27 12/14/19 20 12/20/2019 CMP, serum or plasm a ALT 14 U/L 6-[address] [facility] [address], [place], [address], 12/20/2019 15:44:27 12/14/19 20 12/20/2019 vitam in D, 1,25- dihyd angel luis, serum vitamin D, 1,25 (oh)2, total 45 pg/mL 18-72 Not Available [facility] [address], [place], [address], 12/20/2019 15:44:28 12/14/19 20 12/20/2019 vitam in D, 1,25- dihyd angel luis, serum vitamin D3, 1,25 (oh)2 45 pg/mL Not Available [facility] [address], [place], [address], 12/20/2019 15:44:28 12/14/19 20 12/20/2019 vitam in [...] mined by [facility] Curtisi charanjit, [facility], [place]. It has not been clear ed or appro myron by the FDA. This assay has been valid ated pursu ant to the CLIA regul ation s and is used for clini dipesh purpo ses. Not Available [facility] [address], [place], [address], 12/20/2019 15:44:28 12/14/19 20 12/20/2019 prote in elect ropho resis panel , serum or plasm a protein, total 6.7 g/dL 6.1-8. 1 normal Not Available [facility] [address], [place], [address], 12/20/2019 15:44:28 12/14/19 20 12/20/2019 prote in elect ropho resis panel , serum or plasm a albumin 4.1 g/dL 3.8-4. 8 normal Not Available [facility] [address], [place], [address], 12/20/2019 15:44:28 12/14/19 20 12/20/2019 prote in elect ropho resis panel , serum or plasm a alpha 1 globulin 0.4 g/dL 0.2-0. 3 high Not Available [facility] [address], [place], [address], 12/20/2019 15:44:28 12/14/19 20 12/20/2019 prote in elect ropho resis panel , serum or plasm a alpha 2 globulin 0.8 g/dL 0.5-0. 9 normal Not Available [facility] [address], [place], [address], 12/20/2019 15:44:28 12/14/19 20 12/20/2019 prote in elect ropho resis panel , serum or plasm a beta 1 globulin 0.5 g/dL 0.4-0. 6 normal Not Available [facility] [address], [place], [address], 12/20/2019 15:44:28 12/14/19 20 12/20/2019 prote in elect ropho resis panel , serum or plasm a beta 2 globulin 0.3 g/dL 0.2-0. 5 normal Not Available [facility] [address], [place], [address], 12/20/2019 15:44:28 12/14/19 20 12/20/2019 prote in elect ropho resis panel , serum or plasm a gamma globulin 0.7 g/dL 0.8-1. 7 low Not Available [facility] [address], [place], [address], 12/20/2019 15:44:28 12/14/19 20 12/20/2019 prote in [...] diagn osis. Not Available [facility] [address], [place], [address], 12/20/2019 15:44:28 12/14/19 20 12/20/2019 TSH, serum or plasm a TSH w/reflex to FT4 0.55 mIU/L 0.40-4 .50 normal Not Available [facility] [address], [place], [address], 12/20/2019 15:44:29 12/14/19 20 12/20/2019 PT/IN R INR 1.0 normal Refer ence Range 0.9-1 .1 Moder ate-i ntens ity Warfa rin Thera py 2.0-3 .0 Highe r-int ensit y Warfa rin Thera py 3.0-4 .0 Not Available [facility] [address], [place], [address], 12/20/2019 15:44:29 12/14/19 20 12/20/2019 PT/IN R PT 10.1 sec 9.0-11 .5 normal For more infor idalia veliz on this test, go to: http: //[facility] edith veliz.que stdia gnost [employer].c om/fa q/FAQ 104 Not Available [facility] [address], [place], [address], 12/20/2019 15:44:29 12/14/19 20 12/20/2019 eryth rocyt e sedim entat ion rate by westjuanito finneyren metho d sed rate by modified westcliffordren 2 mm/h < or = 30 normal Not Available [facility] [address], [place], [address], 12/20/2019 15:44:29 11/30/19 20 11/08/2019 MRI, thora cic spine , w/o contr ast No observ ation record ed. [facility] [address], [place], [address], 11/30/2019 14:53:58 11/30/19 20 11/08/2019 MRI, lumba r spine , w/o contr ast No observ ation record ed. [email or web address] [facility] [address], [place], [address], 11/30/2019 14:54:24 12/28/19 20 12/14/2019 MRI, lumba r spine , w/o contr ast No observ ation record ed. [address], [place], [address], 01/24/2020 13:27:06 01/03/20 20 12/14/2019 MRI, lumba r spine , w/o contr ast No observ ation record ed. [address] [facility] [address], [place], [address], 01/24/2020 13:27:06 Result Notes None recorded. Problems Name Problem SNOMED Code Status Onset Date Resolution Date Notes Provider Name and Address Organization Details Recorded Time Chronic pain 19254639 Active 2019 Lizette Childress [facility] 0 13:51:58 Low back pain 306658920 Active 2019 Finesse Maza MD [address], [place], [address], [facility] 0 16:33:35 History of vertebral fracture 849663993 Active 2019 Finesse Maza MD [address], [place], [address], [facility] 0 16:33:37 History of pathologica l vertebral fracture 8275439032410 05 Active 2019 Finesse Maza MD [address], [place], [address], [facility] 0 16:33:38 Spinal stenosis of lumbar region 30990891 Active 2019 Finesse Maza MD [address], [place], [address], [facility] 0 16:36:28 Arthropathy of lumbar facet joint 541910593 Active 2019 Finesse Maza MD [address], [place], [address], [facility] [place] [facility] 0 16:36:34 Arthropathy of spinal facet joint 334176283 Active 2019 Finesse Maza MD [address], [place], [address], [facility] 0 16:36:36 Lumbar facet joint pain 073738949 Active 2019 Finesse Maza MD [address], [place], [address], [facility] 0 16:36:38 Screening for osteoporosi s Active 2019 Finesse Maza MD [address], [place], [address], [facility] 0 16:36:42 Thoracic spondylosis without myelopathy 930147917 Active 2019 Finesse Maza MD [address], [place], [address], [facility] 0 16:36:43 Problem Notes None recorded. Procedures Surgical History Date Name Laterality Status Provider Name and Address Organization Details Recorded Time 01/29/20 20 ASC Bilateral Transforaminal completed Finesse Maza MD [address], [place], [address], [facility] 01/29/2020 10:24:10 06/27/18 90 Cholecystectomy [facility]ress [facility] 11/30/2019 13:52:35 bilateral extraction of cataracts completed Finesse Maza MD [address], [place], [address], [facility] 11/30/2019 15:10:57 excision of cyst of breast completed Finesse Maza MD [address], [place], [address], [facility] 11/30/2019 15:11:55 Tonsillectomy completed Finesse Maza MD [address], [place], [address], [facility] 11/30/2019 15:20:53 Imaging Results Imaging Date Name Status LastModified by Organiz ation Details LastModified Time 11/08/2019 MRI, thoracic spine, w/o contrast completed [address] [facility] [address], [place], [address], 11/30/2019 14:53:58 11/08/2019 MRI, lumbar spine, w/o contrast completed [email or web address] [facility] [address], [place], [address], 11/30/2019 14:54:24 12/14/2019 MRI, lumbar spine, w/o contrast completed [address] [facility] [address], [place], [address], 01/24/2020 13:27:06 12/14/2019 MRI, lumbar spine, w/o contrast completed [address] [facility] [address], [place], [address], 01/24/2020 13:27:06 Procedure Notes None recorded. Medical Equipment None Reported. Allergies Allergen ID Allergen Name Allergen Category Reaction Reaction Severity Criticality Documentation Date Start Date Code Code System Note Provider Name and Address Organization Details Recorded Time 6884 erythromy roro medicatio n hives Not available Not available 11/30/2019 4053 RxNorm Finesse Maza MD [address], [place], [address], [facility] 0 13:57:34 Medications Name Sig Start Date Stop Date Status Note LastModified by Organization Details LastModified Time oxycod/apap tab 10-325mg 01/23 completed Not Available Not Available Not Available escitalopra m oxalate 10 mg tabs active [...] Updated DateTime 12/28/2019 162.56 cm 29.2 kg/m2 59594.7 g Katie Moeller [facility] 12/28/2019 10:34:50 Date Recorded Body height Body mass index (BMI) Body weight Provider Name and Address Organization Details Last Updated DateTime 01/24/2020 162.56 cm 30.4 kg/m2 51458.85 g Katie Sajan [facility] 01/24/2020 13:12:58 Date Recorded Body height Provider Name an d Address Organization Details Last Updated DateTime 01/29/2020 162.56 cm Tameka Martinez [facility] 01/29/2020 07:43:22 Date Recorded Body height Body mass index (BMI) Body weight Provider Name and Address Organization Details Last Updated DateTime 02/21/2020 162.56 cm 28 kg/m2 87193.56 g Tameka Martinez [facility] 02/21/2020 14:23:16 Date Recorded Body height Body mass index (BMI) Body weight Provider Name and Address Organization Details Last Updated DateTime 03/20/2020 162.56 cm 27.5 kg/m2 14508.78 g Tameka Martinez [facility] 03/20/2020 11:48:51 Social History Question Answer Notes LastModified by Organizat ion Details LastModified Time Tobacco Smoking Status Current Every Day [facility]/30/2019 13:54:20 Auto Related Injury? No [email or web address] Information not available 11/30/2019 Which Illicit Or Recreational Drugs Have You Used? Denies Any Illicit Drug Use Information not available 11/30/2019 Live Alone Or With Others? Alone Information not available 11/30/2019 How Much Tobacco Do You Smoke? 1 PPD [email or web address] Information not available 11/30/2019 How Many Years Have You Smoked Tobacco? 5 [email or web address] Information not available 11/30/2019 Sex: Unknown Functional Status Question Answer Note LastModified by Organization D etails LastModified Time Are you currently employed? No [email or web address] Information not available 11/30/2019 What is your occupation? Disabled Information not available 11/30/2019 Mental Status None recorded. Family History Nothing [...] Sclerosis N Chron's disease N Heart Attack ([place]) N Diabetes N Gastric Ulcer N Blood [...] SNOMED-CT Code Diagnosis ICD10 Code Diagnosis Note [id number] Finesse Maza MD [facility] [address] [employer] [facility] [place] [address] 11/30/2019 13:14:03 11/30/2019 16:45:37 Low back pain 773192519 M54.5 History of vertebral fracture 629864751 Z87.311 T12 and L2 History of pathological vertebral fracture [id number] 81254 Z87.311 Spinal neal nosis of lumbar region 48065334 M48.061 Arthropath y of lumbar facet joint 034891683 M46.96 Arthropath y of spinal facet joint 159407635 M12.88 Lumbar fac et joint pain 798414843 M54.5 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 403217030 M47.814 Screening for osteoporosis 114024290 Z13.820 [id number] SARAH RESENDIZ NP [facility] [address] [facility],[address] [place] [address] 12/28/2019 10:28:48 12/28/2019 11:46:56 History of pathological vertebral fracture [id number] 96675 Z87.311 Spinal neal nosis of lumbar region 59368861 M48.061 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 985542610 M47.814 Low back pain 745546949 M54.5 History of vertebral fracture 437139873 Z87.311 T12 and L2 Arthropath y of lumbar facet joint 419728204 M46.96 Arthropath y of spinal facet joint 171435374 M12.88 Lumbar fac et joint pain 409555651 M54.5 Screening for osteoporosis 086633036 Z13.820 [id number] Finesse Maza MD [facility] [address] [facility] [address] [place] [address] 01/24/2020 13:02:09 01/24/2020 14:00:29 History of pathological vertebral fracture 5623600788 12820 Z87.311 Spinal neal nosis of lumbar region 59471212 M48.061 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 356377637 M47.814 Low back pain 953312040 M54.5 History of vertebral fracture 697995703 Z87.311 T12 and L2 Arthropath y of lumbar facet joint 731233549 M46.96 Arthropath y of spinal facet joint 032501695 M12.88 Lumbar fac et joint pain 100613598 M54.5 Screening for osteoporosis 714389804 Z13.820 [id number] Finesse Maza MD [facility] [address] [place] [address] 01/29/2020 00:04:26 01/29/2020 00:04:26 Spinal stenosis of lumbar region 21674452 M48.061 27351 ANTHONY PRADO 2000 [facility] [address] [place] [address] 02/21/2020 14:19:42 02/21/2020 15:19:01 History of pathological vertebral fracture 2149644094 23157 Z87.311 Spinal neal nosis of lumbar region 57417240 M48.061 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 558081878 M47.814 Low back pain 999845598 M54.5 History of vertebral fracture 886042238 Z87.311 T12 and L2 Arthropath y of lumbar facet joint 527279004 M46.96 Arthropath y of spinal facet joint 090288612 M12.88 Lumbar fac et joint pain 808792360 M54.5 Screening for osteoporosis 441046324 Z13.820 [id number] [facility]ONY [facility] [address] [place] [address] 03/20/2020 11:47:24 03/20/2020 12:07:03 History of pathological vertebral fracture 7489088822 39957 Z87.311 Spinal neal nosis of lumbar region 32649933 M48.061 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 873028701 M47.814 Low back pain 966857522 M54.5 History of vertebral fracture 432702078 Z87.311 T12 and L2 Arthropath y of lumbar facet joint 473730317 M46.96 Arthropath y of spinal facet joint 058264216 M12.88 Lumbar fac et joint pain 228587513 M54.5 Screening for osteoporosis 879412420 Z13.820 Health Concerns Section Related Observation LastModified by Organization Detai ls LastModified Time None Recorded Concern Status LastModified by Organization Details LastModified Time None Recorded Advance Directives Directive None Recorded Payers Encounter Date Sequence Insurance Name Policy Number Policy L[place] Covered Member ID Latham Member ID Guarantor Name 12/28/2019 1 [facility] [id number] Katey Bernard Edna Alvaro [id number] Katey Bernard Alvaro 12/28/2019 2 [place] [employer] Katey Joana Alvaro [id number] Katey Gustafsony Alvaro 01/24/2020 1 [facility] [id number] Katey Bernard Edna Alvaro [id number] Aktey Joana Alvaro 01/24/2020 2 [place] [employer] Katey Joana Alvaro [id number] Katey Gustafsony Alvaro 01/29/2020 1 [facility] [id number] Katey Bernard Edna Alvaro [id number] Katey Joana Alvaro 01/29/2020 2 [place] [employer] Katey Joana Alvaro [id number] Katey Gustafsony Alvaro 02/21/2020 1 [facility] [id number] Katey Bernard Edna Alvaro [id number] Katey Gustafsony Alvaro 02/21/2020 2 [place] [employer] Katey Joana Alvaro [id number] Katey Gustafsony Alvaro 03/20/2020 1 [facility] [id number] Katey Bernard Edna Alvaro [id number] Katey John 03/20/2020 2 [place] [facility] [employer] Katey John [id number] Katey John Notes Date Note Type Note [...] Previous Surgery:none Previous Injections:none Previous PT:none Previous Business Executive:none Finesse Maza MD [address] [place], [address], [facility] 12/29/2019 00:48:14 01/24/2020 text/html Pain Management L-spineReported [...] Previous Surgery:none Previous Injections:none Previous PT:none Previous Business Executive:none Finesse Maza MD [address] [place], [address], [facility] 01/24/2020 13:57:49 02/21/2020 text/html Pain Management L-spineReported [...] Previous Surgery:none Previous Injections:none Previous PT:none Previous Business Executive:none Finesse Maza MD [address] [place], [address], [facility] [place] 02/21/2020 20:01:45 03/20/2020 text/html Pain Management L-spineReported [...] Previous Surgery:none Previous Injections:none Previous PT:none Previous Business Executive:none Finesse Maza MD [address] [place], [address], [facility] 03/21/2020 16:33:11 OBGyn Episode No OBEpisode recorded.
--- OUTSIDE RECORDS SUMMARY | 2024-11-14 15:35 | XMS_ITS | Encounter Summary ---
Author Organization [facility] Address [address] [place] [address] Phone Care Team Providers Care Machine Joiner Cementer Name Role Phone Marvin Shaikh MD Unavailable [phone] John Paul Sharif MD Unavailable [phone] Joni Manning MD Unavailable [phone] Mark Bettencourt DO Unavailable [phone] Joni Ortega MD Primary Care Provider [phone] Gabrielle Jones MD Unavailable Encounter Details Date Type Department Care Team (Late st Contact Info) Description 09/21/2024 Results Follow-Up [facility] - Family [facility] [address] [place] [id number] Katina Valle RN [place] MRI LEFT SHOULDER WO CONTRAST Social History [...] Job Start Date Job End Date retired maria elen[employer] Not on file Not on file Not [...] documented as of this encounter Care Teams Machine Joiner Cementer Relationship Specialty Start Date End Date Joni Ortega MD [address] [facility] [address] [place] [address] PCP - General Family Medicine 12/26/20 Marvin Shaikh MD [address] [place] [address] Consulting Physician Oncology 07/22/17 Joh nPaul Sharif MD [address] [place] [address] Consulting Physician Orthopaedic Surgery 07/22/17 Joni Manning MD 4 [facility] [address] [place] [address] Consulting Physician Neurology 02/15/18 Mark Bettencourt DO 4 [facility] [address] [place] [address] Gastroenterology 06/07/18 Gabrielle Jones MD [address] [address] Consulting Physician Orthopaedic Surgery 09/17/24 documented as of this encounter
--- OUTSIDE RECORDS SUMMARY | 2024-11-14 15:35 | XMS_ITS | Patient Health Record ---
Author Organization [facility] Billing Info Address [address] [place], [place] [address] [place] [address] Care Team Providers Care Exhaust Tender Name Role Phone URI HA [phone] Allergies Allergen (clinical drug ingredient) Drug/Non Drug Allergy documented on EMR Reaction Allergy Type Onset Date Status tramadol Tramadol HCl Unknown Drug Allergy Acti ve BEE Unknown Drug Allergy Active Reason For Referral No Information Medications Medication SIG (Take, Route, Frequency, Duration) Notes Start Date End Date Status Betamethasone Dipropionate Aug 0.05 % 1 application Externally BID for 14 day(s) 08/20/2019 Not-Taking Hydrocodone-Acetaminophen Active Levaquin 750 MG 1 tablet Orally Once a day for 5 day(s) 08/20/2019 Not-Taking MethylPREDNISolone 4 MG as directed Orally 020 Not-Taking Albuterol Sulfate HFA 108 (90 Base) MCG/ACT 1 puff as needed Inhalation every 6 hrs for 10 day(s) 07/12/2019 Not-Taking Amoxicillin-Pot Clavulanate 875-125 MG 1 tablet Orally every 12 hrs for 7 day(s) 07/07/2019 Not-Taking Oxycodone-Acetaminophen 10-325 MG 1 tablet as needed Orally every 6 hrs Not-Taking Fluticasone Propionate 50 MCG/ACT 1 spray in each nostril Nasally Once a day for 30 day(s) Not-Taking ProAir HFA 108 (90 Base) MCG/ACT Inhalation for 32 Not-Taking Social History Tobacco Status: Question Answer Notes Patient is a non tobacco user Plan Of Treatment Pending Test Test Name Order Date URINALYSIS, DIP STICK/TABLET REAGENT; AU TOMATED, W/O MICROSCOPY (83741) IH 08/20/2019 Insurance Providers Payer Name Payer Address Payer Phone Subscriber Number Group Number Insured Name Patient Relationship to Insured Coverage Start Date Coverage End Date A[employer] MEDICARE COMPLETE [facility] [address] [address] [facility] [place] [place] [id number] Katey Kim Self - patient is the insured 0 0 Medical (General) History Medical History History ICD Code breast cancer Arthritis fibromyalgia nerve damage Surgical History Surgery Date(Month/Year) gall bladder surgery wrist surgery foot surgery
--- OUTSIDE RECORDS SUMMARY | 2024-11-14 15:35 | XMS_ITS | Referral Summary ---
Author Organization [facility] Address [address] [place] [address] Care Team Providers Care Second Time Worker Name Role Phone Joni Ortega MD Primary Care Provider [phone] Encounters Date Type Department Care Team Description 09/11/2024 8:12 AM CDT - 09/11/2024 11:59 PM CDT Hospital Encounter [facility] [address] [place] [address] Left shoulder pain, unspecified chronicity Discharge Disposition: Discharge to home or self care 09/06/2024 ACO Quality [facility] Accountable Care Organization [address] [place] [id number] [place] Perez [place] 08/27/2024 Telephone [facility] [address] [place] [address] Palak Mcdonnell PA from Last 3 Months Allergies Active Allergy Reactions Criticality Noted Date Comments Aspirin Stomach upset Low 05/09/2023 ulcers Hydromorphone Hallucinations Medium 12/22/2023 Duloxetine Hcl Diarrhea,Hives,Vomiting Medium 05/09/20 20 Erythromycin Nausea only,Hives Medium 05/08/2015 Pregabalin Other (See comments) Low 03/24/2018 Per patient suicidal Nitrofurantoin Unknown 08/24/2022 No Known Allergies Other (See comments) Low 019 Reaction: Other Anaphylaxis High 03/22/2017 BEE STINGS Paroxetine Vomiting Low 01/20/2023 Rosuvastatin Other (See comments) Low 06/30/2023 Leg cramping Tramadol Nausea only Low 05/08/2015 Unclassified Drug Unknown 03/02/2019 Venom-Honey Bee Anaphylaxis High 03/22/2017 BEE STINGS Medications oxyCODONE-acetam inophen (PERCOCET) 10-325 mg per tabletIndication s:Pain Take 1 tablet by mouth every 8 (eight) hours as needed for pain. 30 tablet 8 Active Additional Information Patient not taking.Reported on 05/23/2024 ezetimibe (ZETIA) 10 mg tabletIndication s:Cerebral atherosclerosis, High cholesterol,Athe rosclerosis of abdominal aorta Take 1 tablet (10 mg total) by mouth daily 90 tablet 4 4 Active amitriptyline (ELAVIL) 50 mg tabletIndication s:Fibromyalgia,I nsomnia Take 1-2 tablets at bedtime as needed for sleep 180 tablet 3 4 Active albuterol HFA (PROVENTIL HFA,VENTOLIN HFA,PROAIR HFA) 90 mcg/actuation inhalerIndicatio ns:Pulmonary emphysema, unspecified emphysema type (HCC) Inhale 2 puffs every 6 (six) hours as needed for wheezing 3 each 4 4 Active budesonide-glyco pyr-formoterol (Breztri Aerosphere) 160-9-4.8 mcg/actuation inhalerIndicatio ns:Pulmonary emphysema, unspecified emphysema type (HCC) Inhale 2 puffs 2 (two) times a day 3 each 3 4 Active rosuvastatin (CRESTOR) 10 mg tabletIndication s:Cerebral atherosclerosis, High cholesterol,Athe rosclerosis of abdominal aorta Take 1 tablet (10 mg total) by mouth daily 90 tablet 3 4 Active Additional Information Patient not taking.Reported on 05/23/2024 triamcinolone (KENALOG) 0.1 % lotion APPLY TO AFFECTED AREAS OF LEGS ONE TO TWO TIMES DAILY FOR UP TO TWO WEEKS AT A TIME. 4 Active Jardiance 10 mg tablet TAKE 1 TABLET BY MOUTH EVERY DAY 90 tablet 1 4 Active Active Problems Problem Noted Date Diagnosed Date Primary osteoarthritis of left shoulder 12/22/19 24 Assessment & Plan (12/22/2023 4:47 PM CDT): Does not tolerate NSAIDs, refer back to orthopedics. Was seen in 2022, but pain and ROM is worsening. Elevated blood-pressure read ing, without diagnosis of hypertension 12/22/2023 Assessment & Plan (12/22/2023 4:48 PM CDT): Blood pressure was elevated upon 1st arriving to office and was repeated manually and was still elevated at 213/80. Patient denied smoking a cigarette prior to arrival although we did smell cigarette smoke.. At end of office visit we did recheck blood pressure and had considerably dropped to near normal at 132/78. High cholesterol 06/30/2023 Assessment & Plan (12/22/2023 4:47 PM CDT): Lipid abnormalities are stable, reviewed previous lipid levels in the medical center. Patient has stain intolerance. Crestor (rosuvastatin)- she has not currently taking this medication Order for lipid panel was given today to be obtained. Pt voiced understanding of lab drawn and continuation of current medication regimen. Assessment & Plan (09/29/2023 5:34 PM CDT): Chronic. Well-controlled. Continue ezetimibe and rosuvastatin given signs of cerebrovascular disease on prior imaging. Assessment & Plan (06/30/2023 7:52 PM TRIMMER OPERATOR): Chronic. Was intolerant of rosuvastatin 10 mg daily. Discussed option to try 5 mg dose or try Zetia. Also discussed option to consider a PCSK9 inhibitor like Repatha. Patient after discussion agree to trial of Zetia. Discussed side effects and use. We counseled her in length on dietary modifications, exercise and weight loss to help decrease cholesterol levels. We also discussed recommendation to stop smoking given the significantly increases the risk of cardiovascular events due to cholesterol Atherosclerosis of abdominal aorta 06/30/2023 Assessment & Plan (09/29/2023 5:34 PM CDT): Chronic. Asymptomatic. Continue risk factor modification with Zetia and rosuvastatin. LDL is at goal of less than 55. Continue aspirin Assessment & Plan (06/30/2023 7:52 PM TRIMMER OPERATOR): Chronic. Continue to work on risk factor modification. Intolerant of rosuvastatin 10 mg dose. Will try Zetia. Could benefit from PCSK9 inhibitor but patient is refusing. Counseled on importance of patient to stop smoking. Cerebral atherosclerosis 06/30/2023 Assessment & Plan (09/29/2023 5:35 PM CDT): Chronic. Continue with risk factor modification with Zetia and rosuvastatin. Continue aspirin. Assessment & Plan (06/30/2023 7:53 PM TRIMMER OPERATOR): Previously noted on imaging. Continue risk factor modification. Encouraged to stop smoking. Trial of Zetia given statin intolerance Fatty liver disease, nonalcoholic 06/30/2023 Assessment & Plan (09/29/2023 5:37 PM CDT): Liver ultrasound was previously ordered to assess. Still needs to be completed. Her upper abdominal symptoms have improved some. Monitor. Encouraged healthy diet and exercise Assessment & Plan (06/30/2023 7:53 PM TRIMMER OPERATOR): Patient reported diagnosis. Counseled on healthy diet, exercise and weight loss. Needs to obtain previously ordered labs. Will obtain liver ultrasound per patient request Pulmonary emphysema 01/21/2023 Assessment & Plan (12/08/2023 6:04 PM CDT): Chronic. Controlled. Continue breast tree and p.r.n. albuterol. Monitor Assessment & Plan (09/29/2023 5:34 PM CDT): Chronic. Was improving with Advair but does not like how it it feels when she takes it. Will try changing to Breztri. Continue p.r.n. albuterol. Strongly encouraged patient to stop smoking Assessment & Plan (06/30/2023 7:51 PM TRIMMER OPERATOR): Chronic. Breathing has improved since we started her on a controller medication previously. She reports fair compliance. Discussed use of medication. Continue Advair. If struggles long-term then could always consider changing to something like Trelegy or Breztri Assessment & Plan (01/21/2023 3:18 PM CDT): Chronic COPD. Refuses PFTs to assess degree of lung disease. Patient currently with signs of exacerbation. Five day course of prednisone. Continue p.r.n. albuterol. Likely will need daily controller inhalers. Monitor Tobacco use 01/21/2023 Assessment & Plan (09/29/2023 5:38 PM CDT): Chronic. Uncontrolled. Needs to quit smoking. Brief supportive counseling was provided. Patient is not interested. Assessment & Plan (06/30/2023 7:50 PM TRIMMER OPERATOR): Patient is currently smoking. This is posing significant health risk to her. She strongly advised to quit. Greater than 3 minutes were spent on smoking cessation counseling Assessment & Plan (01/21/2023 3:19 PM CDT): Reviewed health risks. Counseled patient to quit Rotator cuff syndrome of left shoulder Assessment & Plan (12/22/2023 4:46 PM CDT): Worsening. Refer to orthopedics Assessment & Plan (01/21/2023 3:21 PM CDT): Recent onset of left shoulder pain. Has intact shoulder range of motion relatively intact rotator cuff testing on examination. It is doubtful that there is a large rotator cuff tear. She may be dealing with a degree of shoulder arthritis flare versus mild rotator cuff tendinosis. Recommended physical therapy to treat her shoulder but she refuses. Given exam findings there is no current indication for MRI given patient is unlikely to warrant surgical intervention until fails potential course of physical therapy Bilateral chronic knee pain 01/21/2023 Assessment & Plan (01/21/2023 3:42 PM CDT): Chronic. Working with Orthopedics, Dr. Velazquez. Defer care to them Primary osteoarthritis of right knee 01/21/2023 Assessment & Plan (01/21/2023 3:41 PM CDT): Chronic. Working with Orthopedics, Dr. Velazquez. Defer care to them Arthropathy of lumbar facet joint 11/30/2019 Spinal stenosis of lumbar region 11/30/2019 Thoracic spondylosis without myelopathy 11/30/19 20 Chronic pain 01/18/2018 Assessment & Plan (06/30/2023 7:51 PM TRIMMER OPERATOR): Chronic. Medication care per pain management Assessment & Plan (01/21/2023 3:15 PM CDT): Chronic. Patient has some limited insight. Continue care per pain management Assessment & Plan (01/18/2018 2:51 AM CDT): Patient with history of chronic pain syndrome, reportedly pain involving bilateral knees ankles and hips back and neck Patient states that also has been diagnosed with fibromyalgia. Currently on Percocet 10 mg twice a day. I had extensive discussion regarding indications of opiate treatment, explained to her in extent that opiate medications are not indicated for chronic treatment of fibromyalgia. Advised slow tapering of the opiate medications. Will decrease the dose of Percocet to 5 mg/325 mg 1 tablet 3 times a day as needed. Patient already started on amitriptyline by Neurology for dizziness, should also help with the fibromyalgia and neuropathic pain. Generalized anxiety disorder 01/18/2018 Assessment & Plan (09/29/2023 5:35 PM CDT): Patient has a degree of hypochondriasis. Only mild anxiety. Monitor. Prior intolerance to duloxetine and Paxil. Encouraged to work on stress reduction and coping strategies. On amitriptyline to help with sleep and fibromyalgia Assessment & Plan (01/21/2023 3:16 PM CDT): Patient has a degree of hypochondriasis. Only mild anxiety. Monitor. Prior intolerance to duloxetine and Paxil. Encouraged to work on stress reduction and coping strategies. Continue p.r.n. hydroxyzine Assessment & Plan (01/18/2018 2:53 AM CDT): Patient had been taking Xanax 1 mg tablet p.o. b.i.d. as needed for severe anxiety episodes. Discussed with the patient potential side effects including dizziness and potential dependency. Patient verbalized understand Mild recurrent major depression 07/04/2016 Assessment & Plan (06/30/2023 7:50 PM TRIMMER OPERATOR): Currently denies significant mental health symptoms. Patient does have possible component of hypochondriasis however noted on repetitive interactions in office Assessment & Plan (01/21/2023 3:17 PM CDT): Chronic. Doing okay. Denies significant depression today Fibromyalgia 05/08/2015 Assessment & Plan (09/29/2023 5:36 PM CDT): Chronic. Continue pain meds per pain management. Patient is aware that we will not provide the narcotics. We will continue on the amitriptyline Assessment & Plan (06/30/2023 7:51 PM TRIMMER OPERATOR): Chronic. Continue pain meds per pain management. Patient is aware that we will not provide the narcotics. We will manage the amitriptyline Assessment & Plan (01/21/2023 3:15 PM CDT): Chronic. Continue care per pain management. Needs to do regular physical activity and stretch. Will restart amitriptyline Chronic pain of left wrist 09/03/2014 Overview (01/21/2023): History of prior fracture with ORIF. Has chronic pain in this area. She is not interested in any additional therapy or surgery on this Assessment & Plan (01/21/2023 3:13 PM CDT): History of prior fracture with ORIF. Has chronic pain in this area. She is not interested in any additional therapy or surgery on this. Patient was requesting an MRI. Discussed with patient that MRIs are going to typically be done for surgical planning. Before considering evaluation for potential surgical pathology I would have her do another course of occupational therapy. Patient defers any of this after discussion Acute myeloid leukemia in remission 07/16/2013 Overview (01/21/2023): Diagnosed in 2010. Treated at [facility]. Patient had prior bone marrow transplant. Last saw her oncologist in 2016 and has been released from care. Remains in remission Assessment & Plan (09/29/2023 5:33 PM CDT): History of AML. Remains in remission. No signs of recurrence. Monitor blood counts yearly Assessment & Plan (06/30/2023 7:50 PM TRIMMER OPERATOR): Remote history of leukemia. Has been in remission for over a decade. Denies symptoms Assessment & Plan (01/21/2023 3:15 PM CDT): Tightness and 2011 status post bone marrow transplant. [place] to be in sustained remission. No longer sees Oncology Assessment & Plan (01/18/2018 2:45 AM CDT): Per patient's report had been in remission for several years. Last office visit with Hematology Oncology was 3 years ago Resolved Problems Problem Noted Date Diagnosed Date Resolved Date Trigger middle finger of right hand 09/29/2023 12/22/2023 Assessment & Plan (09/29/2023 5:37 PM CDT): New diagnosis. Discussed diagnosis and treatment. Discussed option for a period of relative rest and possible bracing. Discussed option to consider a corticosteroid injection or seek more definitive evaluation from hand surgery for possible released. Patient will consider option but is not currently interested in surgery or injection Dysuria 01/21/2023 05/09/2023 Assessment & Plan (01/21/2023 3:46 PM CDT): May have a degree of interstitial cystitis given chronic nature. UA borderline for UTI. Urine culture sent. If positive we will start antibiotics. Otherwise plan to monitor for now. Likely would benefit from seeing Urology for further evaluation given chronic nature History of hematuria 01/21/2023 024 Assessment & Plan (01/21/2023 3:20 PM CDT): Patient reports history of chronic microscopic hematuria on urinalysis. Reports remote urology evaluation but not in over 5 years. Discussed with patient risk for a diagnosis bladder or renal cancer. If persistent on labs then really does need to see Urology for repeat assessment Excessive sweating 01/21/2023 Assessment & Plan (01/21/2023 3:23 PM CDT): Prior evaluation with lab work by her previous physician was negative. Could be side effect of her chronic opioid use. Patient notes symptoms have persisted despite being off amitriptyline recently so less likely related to TCA. Will monitor. Lumbar facet joint pain 11/30/2019 04/0 09/2023 Low back pain 05/24/2018 12/22/2023 Assessment & Plan (06/30/2023 7:51 PM TRIMMER OPERATOR): Care per pain management. Medications per specialist. Chronic Assessment & Plan (01/21/2023 3:15 PM CDT): Chronic. Struggles with pain. Continue medication and care per pain management. Back pain issues are deferred her managing specialists Dizziness 01/18/2018 01/21/2023 Assessment & Plan (01/18/2018 2:55 AM CDT): Neuro exam exam is pretty reassuring. Dr. Manning consulted for dizziness MRI of brain is pending -will follow up with Neurology recommendations. Patient started on amitriptyline per Neurology. Mastoiditis of both sides 01/18/2018 Assessment & Plan (01/18/2018 2:57 AM CDT): CT of the head was consistent with bilateral mastoiditis. Also noted to have elevated white cell count. Associated tinnitus and vertigo could be secondary to vestibulitis associated with mastoiditis. The patient also complains of some allergy symptoms with scratchy throat. Will start on Benadryl at bedtime should help with insomnia as well as allergies. Start on Rocephin, trend CBC Hyponatremia 01/18/2018 01/21/2023 Arthralgia of wrist 11/13/2013 01/22/20 23 Immunizations Immunization Administration Dates Next Due Influenza, Unspecified 06/27/2023(Deferr ed: Patient Refused),06/27/2022(Deferred: Patient Refused) Td, Unspecified 06/27/2010 Tdap 03/30/2015 Social History Tobacco Use Types Packs/Day Years Used Date Smoking Tobacco: Every Day Cigarettes Smokeless Tobacco: Never Tobacco Cessation:Ready to Q uit: Not Asked; Counseling Given: Not Answered Alcohol Use Standard Drinks/Week Comments No 0 (1 standard drink = 0.6 oz pur e alcohol) AUDIT-C Answer Date Recorded Q1: How often do you have a drink containing alcohol? Never 12/08/2023 Q2: How many drinks containi ng alcohol do you have on a typical day when you are drinking? Patient does not drink Q3: How often do you have si x or more drinks on one occasion? Never 12/08/2023 PHQ-2 Answer Date Recorded PHQ-2 Total Score (If total score is 3 or more points, staff should administer the PHQ-9) 0 12/22/2023 Comments No Sex and Gender Information Value Date Recorded Sex Assigned at Not on file Legal Sex Female 11:53 PM TRIMMER OPERATOR Gender Identity Not on file Sexual Orientation Not on file Last Filed Vital Signs Vital Sign Reading Time Taken Comments Blood Pressure 123/77 05/23/2024 11:43 AM TRIMMER OPERATOR Pulse 80 05/23/2024 11:43 AM TRIMMER OPERATOR Temperature 36.6 C (97.8 F) 05/23/2024 11:43 AM TRIMMER OPERATOR Respiratory Rate 12 05/23/2024 11:43 AM TRIMMER OPERATOR Oxygen Saturation 97% 05/23/2024 11:43 AM TRIMMER OPERATOR Inhaled Oxygen Concentration - - Weight 84.8 kg (187 lb) 05/23/2024 11:43 AM TRIMMER OPERATOR Height 162.6 cm (5' 4 ) 05/23/2024 11:43 AM TRIMMER OPERATOR Body Mass Index 32.1 05/23/2024 11:43 AM TRIMMER OPERATOR Plan of Treatment Not on file Procedures Procedure Name Priority Date/Time Associated Diagnosis Comments MRI SHOULDER LEFT WO CONTRAST Schedule Routine, Read Routine (OP Routine) 09/11/2024 9:05 AM CDT Left shoulder pain, unspecified chronicity HEPATITIS C SCREENING Routine 02/23/2022 from Last 3 Months or Most Recently Relevant to Health Maintenance Results * MRI Shoulder Left WO Contrast (09/11/2024 9:05 AM CDT) Anatomical Region Laterality Modality Upper Extremities Left Magnetic Reson ance 09/11/2024 10:4 8 AM CDT Narrative 09/11/2024 5:39 PM CDT EXAM DESCRIPTION: MRI SHOULDER LEFT WO CONTRAST REASON FOR STUDY: Left shoulder pain Shoulder pain after fall about 1 month ago TECHNIQUE: Multiplanar, multisequence MRI of the left shoulder was performed without contrast. COMPARISON: X-rays 03/06/2024. Older MRI 09/30/2020. FINDINGS: Bones: There is a mildly comminuted and displaced impacted fracture along the anteromedial aspect of the humeral head involving the lesser tuberosity. There is prominent surrounding contusion/reactive marrow change extending from this area well into the humeral neck. The subscapularis demonstrates moderate tendinosis of the superolateral aspect extending toward the humeral attachments. Tendon appears to attach to a portion of the involved fracture fragments without displacement/retraction of the tendon. The long head of the biceps tendon is poorly seen in this area and is not well seen at the level of the more proximal bicipital groove. Tear is favored. Rotator Cuff: The remainder of the rotator cuff demonstrates mild to moderate tendinosis of the lateral supraspinatus with mild interstitial tearing. There is mild tendinosis of the anterior infraspinatus. Teres minor demonstrates normal signal. Overall, there is normal muscle bulk and signal of rotator musculature itself. Labrum: No discrete tear is seen of the labrum. Acromion and AC Joint: The coracoacromial and coracoclavicular ligaments are intact. Moderate to severe osteoarthritis AC joint. Mild type 2 acromion. Glenohumeral Articulation: Mild chondrosis. Joint and bursae: Mild joint effusion of the glenohumeral joint. No significant fluid of the subacromial subdeltoid bursa. Soft Tissues: The scapular notch, and quadrilateral space are unremarkable. There is no axillary lymphadenopathy. IMPRESSION: There is a mildly comminuted and displaced impacted fracture along the anteromedial aspect of the humeral head involving the lesser tuberosity. Prominent surrounding contusion/reactive marrow change extending from this area well into the humeral neck. Recommend plain films at this time for baseline to follow healing. The subscapularis demonstrates moderate tendinosis of the superolateral aspect extending toward the humeral attachments. Tendon appears to attach to a portion of the involved fracture fragments without displacement/retraction of the tendon. Long head biceps tendon is poorly seen in this area and is not well seen at the level of the more proximal bicipital groove. Tear is favored. [id number] tendinosis lateral supraspinatus with mild interstitial tearing. Mild tendinosis anterior infraspinatus. Moderate to severe osteoarthritis AC joint. Mild chondrosis glenohumeral joint. Mild joint effusion. THIS IS AN ELECTRONICALLY VERIFIED FINAL REPORT 09/11/2024 5:39 PM - Electronically signed by Joni Munoz M.D. MJ: MIKE Report ID: [id number] Reading Location: [id number] Procedure Note Joni Munoz MD - 09/11/2024 EXAM DESCRIPTION: MRI SHOULDER LEFT WO CONTRAST REASON FOR STUDY: Left shoulder pain Shoulder pain after fall about 1 month ago TECHNIQUE: Multiplanar, multisequence MRI of the left shoulder wasperformed without contrast. COMPARISON: X-rays 03/06/2024. Older MRI 09/30/2020. FINDINGS: Bones: There is a mildly comminuted and displaced impacted fracture alongthe anteromedial aspect of the humeral head involving the lesser tuberosity. There is prominent surrounding contusion/reactive marrow change extendingfrom this area well into the humeral neck. The subscapularis demonstrates moderate tendinosis of the superolateralaspect extending toward the humeral attachments. Tendon appears to attach to a portion of the involved fracture fragments without displacement/retractionof the tendon. The long head of the biceps tendon is poorly seen in this area and is notwell seen at the level of the more proximal bicipital groove. Tear is favored. Rotator Cuff: The remainder of the rotator cuff demonstrates mild tomoderate tendinosis of the lateral supraspinatus with mild interstitial tearing.There is mild tendinosis of the anterior infraspinatus. Teres minordemonstrates normal signal. Overall, there is normal muscle bulk and signal of rotator musculatureitself. Labrum: No discrete tear is seen of the labrum. Acromion and AC Joint: The coracoacromial and coracoclavicular ligamentsare intact. Moderate to severe osteoarthritis AC joint. Mild type 2acromion. Glenohumeral Articulation: Mild chondrosis. Joint and bursae: Mild joint effusion of the glenohumeral joint. No significant fluid of the subacromial subdeltoid bursa. Soft Tissues: The scapular notch, and quadrilateral space areunremarkable. There is no axillary lymphadenopathy. IMPRESSION: There is a mildly comminuted and displaced impacted fracture along the anteromedial aspect of the humeral head involving the lesser tuberosity. Prominent surrounding contusion/reactive marrow change extending from this area well into the humeral neck. Recommend plain films at this time for baseline to follow healing. The subscapularis demonstrates moderate tendinosis of the superolateral aspect extending toward the humeral attachments. Tendon appears to attachto a portion of the involved fracture fragments without displacement/retractionof the tendon. Long head biceps tendon is poorly seen in this area and is not well seenat the level of the more proximal bicipital groove. Tear is favored. [id number] tendinosis lateral supraspinatus with mild interstitial tearing. Mild tendinosis anterior infraspinatus. Moderate to severe osteoarthritis AC joint. Mild chondrosis glenohumeral joint. Mild joint effusion. THIS IS AN ELECTRONICALLY VERIFIED FINAL REPORT 09/11/2024 5:39 PM - Electronically signed by Joni Munoz M.D. MJ: MIKE Report ID: [id number] Reading Location: [place] [address] Joni Ortega MD IMG MRI PROCEDURES Final Res ult * HEPATITIS C SCREENING (02/23/2022) SCRIBED HCV ab negative Comment:care everywhere [facility] Historical Provider HEALTH MAINTENANCE Final Result from Last 3 Months or Most Recently Relevant to Health Maintenance Insurance [id number] [facility] IDPA Advance Directives For more information, please contact: [phone] * Full Code (Latest Code Status on File) Date Activated Date Inactivated Comments 01/17/2018 8:25 PM 01/18/2018 6:25 PM * Full Code Date Activated Date Inactivated Comments 01/17/2018 11:55 AM 01/17/2018 8:25 PM Care Teams Second Time Worker Relationship Specialty Start Date End Date Joni Ortega MD [address] [address] PCP - General Family Medicine 08/28/24
--- OUTSIDE RECORDS SUMMARY | 2024-11-14 15:35 | XMS_ITS | Clinical Summary ---
Author Organization [facility] Address [address] [place] [address] Care Team Providers Care Automotive Warranty Administrator Name Role Phone Joni Ortega MD Primary Care Provider Allergies Active Allergy Reactions Criticality Noted Date [...] UP TO TWO WEEKS AT A TIME. Active Jardiance 10 mg tablet TAKE 1 [...] are stable, reviewed previous lipid levels in [facility]. Patient has stain intolerance. Crestor (rosuvastatin)- she has not currently taking this medication Order for lipid panel was given today to be obtained. Pt voiced understanding of lab drawn and continuation of current medication regimen. Assessment & Plan (09/29/2023 5:34 PM CDT): Chronic. Well-controlled. Continue ezetimibe and rosuvastatin given signs of cerebrovascular disease on prior imaging. Assessment & Plan (06/30/2023 7:52 PM RADIO STATION OPERATOR): Chronic. Was intolerant of rosuvastatin 10 [...] aspirin Assessment & Plan (06/30/2023 7:52 PM RADIO STATION OPERATOR): Chronic. Continue to work on risk factor modification. Intolerant of rosuvastatin 10 mg dose. Will try Zetia. Could benefit from PCSK9 inhibitor but patient is refusing. Counseled on importance of patient to stop smoking. Cerebral atherosclerosis 06/30/2023 Assessment & Plan (09/29/2023 5:35 PM CDT): Chronic. Continue with risk factor modification with Zetia and rosuvastatin. Continue aspirin. Assessment & Plan (06/30/2023 7:53 PM RADIO STATION OPERATOR): Previously noted on imaging. Continue risk factor modification. Encouraged to stop smoking. Trial of Zetia given statin intolerance Fatty liver disease, nonalcoholic 06/30/2023 Assessment & Plan (09/29/2023 5:37 PM CDT): Liver ultrasound was previously ordered to assess. Still needs to be completed. Her upper abdominal symptoms have improved some. Monitor. Encouraged healthy diet and exercise Assessment & Plan (06/30/2023 7:53 PM RADIO STATION OPERATOR): Patient reported diagnosis. Counseled on healthy [...] smoking Assessment & Plan (06/30/2023 7:51 PM RADIO STATION OPERATOR): Chronic. Breathing has improved since we [...] interested. Assessment & Plan (06/30/2023 7:50 PM RADIO STATION OPERATOR): Patient is currently smoking. This is [...] 01/18/2018 Assessment & Plan (06/30/2023 7:51 PM RADIO STATION OPERATOR): Chronic. Medication care per pain management [...] 07/04/2016 Assessment & Plan (06/30/2023 7:50 PM RADIO STATION OPERATOR): Currently denies significant mental health symptoms. [...] amitriptyline Assessment & Plan (06/30/2023 7:51 PM RADIO STATION OPERATOR): Chronic. Continue pain meds per pain [...] Overview (01/21/2023): Diagnosed in 2010. Treated at [facility]. Patient had prior bone marrow transplant. Last saw her oncologist in 2016 and has been released from care. Remains in remission Assessment & Plan (09/29/2023 5:33 PM CDT): History of AML. Remains in remission. No signs of recurrence. Monitor blood counts yearly Assessment & Plan (06/30/2023 7:50 PM RADIO STATION OPERATOR): Remote history of leukemia. Has been in remission for over a decade. Denies symptoms Assessment & Plan (01/21/2023 3:15 PM CDT): Tightness and 2011 status post bone marrow transplant. Tendoy to be in sustained remission. No longer [...] 12/22/2023 Assessment & Plan (06/30/2023 7:51 PM RADIO STATION OPERATOR): Care per pain management. Medications per [...] 01/21/2023 Arthralgia of wrist 11/13/2013 01/22/20 23 Encounters Date Type Department Care Team Description 09/11/2024 8:12 AM CDT - 09/11/2024 11:59 PM CDT Hospital Encounter [facility] [address] [place] [address] Left shoulder pain, unspecified chronicity Discharge Disposition: Discharge to home or self care 09/06/[address] [facility] Accountable Care Organization [address] [place] [address] Soco Perez MA 08/27/[address] [facility] Orthopedics and Sports Medicine [address] [facility] [address] [place] [address] Palak Mcdonnell PA from Last 3 Months Immunizations Immunization Administration Dates Next Due Influenza, Unspecified 06/27/2023(Deferr ed: Patient Refused),06/27/2022(Deferred: Patient Refused) Td, Unspecified 06/27/2010 Tdap 03/30/2015 Surgical History Surgery Date Site/Laterality Comments CATARACT EXTRACTION Cataract surgery OTHER SURGICAL HISTORY left breast surgery FOOT SURGERY left foot surgery FINGER SURGERY finger surgery TOE SURGERY toe surgery CHOLECYSTECTOMY Cholecystectomy WRIST SURGERY Left x2 Medical History Medical History Date Comments Hx Other Medical back pain; Comm ents: APO 05/03/2014 - Leukemia (HCC) Cancer, leukemia ; Comments: APO 05/03/2014 - Osteoporosis Osteoporosis Hx Other Medical Left wrist surg steve x 2; Comments: APO 05/03/2014 - Hx Other Medical Left foot surge ry x 2; Comments: APO 05/03/2014 - Hx Other Medical Eye surgery x 4 ; Comments: APO 05/03/2014 - Hx Other Medical Breast biopsy- x 2; Comments: APO 05/03/2014 - Hx Other Medical Removal of hard johnson left dorsal radius.10-02-14.; Comments: NICOLASA 10/14/2014 - COPD (chronic obstructive pu lmonary disease) (HCC) Fibromyalgia Mastoiditis of both sides 01/18/2018 Chickenpox Family History Medical History Relation Name Comments Other Father diabetes cause of ; Lymphoma Mother Cancer; Cause o f : Cancer Cancer Other 1 Family history of Cancer, unknown; Diabetes type II Other 2 Family hist ory of Diabetes mellitus type 2; Arthritis Other 3 Family history of Arthritis; Alcohol abuse Other 4 Family history of Alcoholism; Relation Name Status Comments Father Mother Other 1 Other 2 Other 3 Other 4 Social History Tobacco Use Types Packs/Day Years [...] on file Legal Sex Female 11:53 PM RADIO STATION OPERATOR Gender Identity Not on file Sexual Orientation Not on file Obstetrics History Para Term AB IAB SAB Ectopic Multiple Livin g Live Births 2 2 Date Outcome GA Total Labor Labor/2nd/3rd Weight Sex Type Anes PTL Nargis A1 A5 Name Clin Para Para Last Filed Vital Signs Vital Sign Reading Time Taken Comments Blood Pressure 123/77 05/23/2024 11:43 AM RADIO STATION OPERATOR Pulse 80 05/23/2024 11:43 AM RADIO STATION OPERATOR Temperature 36.6 C (97.8 F) 05/23/2024 11:43 AM RADIO STATION OPERATOR Respiratory Rate 12 05/23/2024 11:43 AM RADIO STATION OPERATOR Oxygen Saturation 97% 05/23/2024 11:43 AM RADIO STATION OPERATOR Inhaled Oxygen Concentration - - Weight 84.8 kg (187 lb) 05/23/2024 11:43 AM RADIO STATION OPERATOR Height 162.6 cm (5' 4 ) 05/23/2024 11:43 AM RADIO STATION OPERATOR Body Mass Index 32.1 05/23/2024 11:43 AM RADIO STATION OPERATOR Plan of Treatment Health Maintenance Due Date Last Done Comments Osteoporosis Screening-Bone Density Scan 1948 Hepatitis B Screening 1966 Pneumococcal vaccine 65+ (1 of 2 - PCV) 12/08/1967 Zoster Vaccine (1 of 2) 12/08/1967 Well Visit 65+ 2013 Colon Cancer Screening-Colonoscopy 03/22/20222016 Depression Screening 12/21/2024 12/22/2023, 01/21/20 23 Fall Risk Assessment 12/21/2024 12/22/2023, 01/21/20 23 Influenza Vaccine (Season Ended) 2025 DTaP/Tdap/Td Vaccine (2 - Td or Tdap) 03/30/202509/2014, 06/27/2010 Breast Cancer Screening-Mammogram Discontinued 018, 11/29/2017 Hepatitis C Screening Completed 02/23/2022 Procedures Procedure Name Priority Date/Time Associated Diagnosis [...] more proximal bicipital groove. Tear is favored. Bglv-ks-tdweomis tendinosis lateral supraspinatus with mild interstitial tearing. Mild tendinosis anterior infraspinatus. Moderate to severe osteoarthritis AC joint. Mild chondrosis glenohumeral joint. Mild joint effusion. THIS IS AN ELECTRONICALLY VERIFIED FINAL REPORT 09/11/2024 5:39 PM - Electronically signed by Joni Munoz M.D. MJ: [email or web address] Report ID: [id number] Reading Location: [id number] Procedure Note Joni Munoz MD - 09/11/2024 [...] more proximal bicipital groove. Tear is favored. Aebv-ks-xahccvgx tendinosis lateral supraspinatus with mild interstitial tearing. Mild tendinosis anterior infraspinatus. Moderate to severe osteoarthritis AC joint. Mild chondrosis glenohumeral joint. Mild joint effusion. THIS IS AN ELECTRONICALLY VERIFIED FINAL REPORT 09/11/2024 5:39 PM - Electronically signed by Joni Munoz M.D. MJ: MIKE Report ID: [id number] Reading Location: [place] [address] Joni Ortega MD IMG MRI PROCEDURES Final Res ult * HM HEPATITIS C SCREENING (02/23/2022) SCRIBED HCV ab negative Comment:care everywhere [facility] Historical Provider HEALTH MAINTENANCE Final Result from Last 3 Months or Most Recently Relevant to Health Maintenance Insurance [id number] [place] [id number] [facility] MEDICARE ADVANTAGE IDPA [id number] [place] [id number] [facility] MEDICARE ADVANTAGE [facility] MEDICARE ADVANTAGE [facility] MEDICARE Address: [facility] [address] [place] [address] IDPA Advance Directives For more information, please contact: [phone] * Full Code (Latest Code Status on File) Date Activated Date Inactivated Comments 01/17/2018 8:25 PM 01/18/2018 6:25 PM * Full Code Date Activated Date Inactivated Comments 01/17/2018 11:55 AM 01/17/2018 8:25 PM Care Teams Automotive Warranty Administrator Relationship Specialty Start Date End Date Joni Ortega MD 2 [place] [address] PCP - General Family Medicine 08/28/24
--- OUTSIDE RECORDS SUMMARY | 2024-11-14 15:35 | XMS_ITS | Encounter Summary ---
Author Organization [facility] Address [address] [place] [address] Phone Care Team Providers Care Process Artist Name Role Phone Marvin Shaikh MD Unavailable [phone] John Paul Sharif MD Unavailable [phone] Joni Manning MD Unavailable [phone] Mark Bettencourt DO Unavailable [phone] Joni Ortega MD Primary Care Provider [phone] Gabrielle Jones MD Unavailable Reason for Visit * Reason Onset Date Comments Referral 01/12/2023 External Orthope dic Referral Encounter Details Date Type Department Care Team (Late st Contact Info) Description 01/12/2023 Telephone [facility] [address] [place] [address] Joni Ortega MD #[address] [address] Referral (External Orthopedic Referral) Social History Tobacco [...] Ward - 01/12/2023 8:45 AM CDT SITUATION: [facility] Referral Services is requesting provider review for [...] documented as of this encounter Care Teams Process Artist Relationship Specialty Start Date End Date Joni Ortega MD #2 [facility] [address] [place] [address] PCP - General Family Medicine 12/26/20 Marvin Shaikh MD [address] [place] [address] Consulting Physician Oncology 07/22/17 John Paul Sharif MD [address] [place] [address] Consulting Physician Orthopaedic Surgery 07/22/17 Joni Manning MD [address] [facility] [address] [place] [address] Consulting Physician Neurology 02/15/18 Mark Bettencourt DO [address] [facility] [address] [place] [address] Gastroenterology 06/07/18 Gabrielle Jones MD #2 [facility] [address] [place] [address] Consulting Physician Orthopaedic Surgery 09/17/24 documented as of this encounter
--- OUTSIDE RECORDS SUMMARY | 2024-11-14 15:35 | XMS_ITS | Encounter Summary ---
Author Organization [facility] Address [address] [place] [address] Phone Care Team Providers Care Records Section Supervisor Name Role Phone Marvin Shaikh MD Unavailable [phone] John Paul Sharif MD Unavailable [phone] Joni Manning MD Unavailable Mark Bettencourt DO Unavailable [phone] Joni Ortega MD Primary Care Provider [phone] Gabrielle Jones MD Unavailable Encounter Details Date Type Department Care Team (Late st Contact Info) Description 08/23/2022 Telephone [facility] [address] [place] [id number] Joni Ortega MD #[address] [address] Social History Tobacco Use Types Packs/Day Years [...] Coronavirus/COVID-19? No / Unsure 08/24/2022 12:21 PM BOARD DESIGN ENGINEER documented as of this encounter Plan of Treatment Not on file documented as of this encounter Visit Diagnoses Not on filedocumented in this encounter Additional Health Concerns Assessment Noted Time PHQ-9 Depression Total Score: 0 11/12/19 22 12:00 PM CDT documented as of this encounter Care Teams Records Section Supervisor Relationship Specialty Start Date End Date Joni Ortega MD #[address] [place] [address] [place] [address] PCP - General Family Medicine 12/26/20 Marvin Shaikh MD [address] [place] [address] Consulting Physician Oncology 07/22/17 John Paul Sharif MD [address] [place] [address] Consulting Physician Orthopaedic Surgery 07/22/17 Joni Manning MD 4 [facility] [address] [place] [address] Consulting Physician Neurology 02/15/18 Mark Bettencourt DO 4 [facility] [address] [place] [address] Gastroenterology 06/07/18 Gabrielle Jones MD #2 [facility] [address] [place] [address] Consulting Physician Orthopaedic Surgery 09/17/24 documented as of this encounter
--- OUTSIDE RECORDS SUMMARY | 2024-11-14 15:35 | XMS_ITS | Encounter Summary ---
Author Organization [facility] Address [address] [place] [address] Phone Care Team Providers Care Cream Beater Name Role Phone Marvin Shaikh MD Unavailable [phone] John Paul Sharif MD Unavailable [phone] Joni Manning MD Unavailable [phone] Mark Bettencourt DO Unavailable [phone] Joni Ortega MD Primary Care Provider [phone] Gabrielle Jones MD Unavailable Reason for Visit * Reason Onset Date Comments Abdominal Pain 11/14/2024 Encounter Details Date Type Department Care Team (Late st Contact Info) Description 11/14/[address] [facility] - [facility] [address] [place] [address] Joni Ortega MD #[address] [address] Abdominal Pain Social History Tobacco Use Types Packs/Day Years Used Date Smoking Tobacco: Never Smokeless Tobacco: Never Alcohol Use Standard Drinks/Week Comments No 0 (1 standard drink = 0.6 oz pur e alcohol) PHQ-2 Answer Date Recorded Total Score - Questions 1-9 0 10/26 Sexually Active Control Partners Comments Never Comments [...] encounter Miscellaneous Notes * Telephone Encounter - Joni Ortega MD - 11/14/2024 3:18 PM CDT Go to ed * Telephone Encounter - Zayra Gallego RN - 11/14/2024 2:55 PM CDT Situation: returning phone call Background: Patient contacting PCP office. Per chart review patient triaged today 11/14/24 at 2:37pm. Assessment: Patient returning phone call and states that she had called earlier. She states that she is now agreeable to going to the ED and is going to be on her way and wanted to notify provider. Recommendation: No further needs. Encounter routed to provider to notify. * Telephone Encounter - Dorothy Jimenez RN - 11/14/2024 2:20 PM CDT SITUATION: abdominal pain BACKGROUND: Patient contacting PCP office. Complains of worsened LLQ abdominal; seeking order for ultrasound. Patient seen 11/13/24 for follow up. States she forgot to mention abdominal pain. Being treated for UTI; picked up new antibiotic ASSESSMENT: Symptom Description / Location: Below belly button to left Hurts to palpate Constant pain Nauseated Slightly bloated Soft abdomen Feels like something is in there a tight ball Questions if it is her ovary Feeling cold/clammy Initially felt symptoms were from Denies: diarrhea, vomiting, constipation, blood in stool, hematuria, hernia, flank pain Pain: 8/10 Fever: Chills. Treatment / Response: No reported treatment. RECOMMENDATION: Patient/caller refuses disposition of: GO to ED now Reiterated the importance of following recommendation as symptoms could indicate a serious or life-threatening situation Patient response:Caller verbalized understanding of recommendations, but continues to refuse emergent disposition and requests provider recommendations. Caller notified that provider will review encounter for further recommendations Unable to provide care advice as caller disconnected. States ask Dr. Ortega for an ultrasound and call me back. Encounter routed to provider high priority to notify. See care advice and disposition for Guideline. First positive answer recorded, all responses to prior questions were negative. If symptoms increase, change or if new symptoms develop, call your health care provider or call back. Recommendations were based on caller information and is not a diagnosis. Verified and reviewed all triage information with caller. Reason for Disposition MILD TO MODERATE constant pain lasting > 2 hours Protocols used: Abdominal Pain - Female-A-[place] * Telephone Encounter - Joni Ortega MD - 11/14/2024 9:54 AM CDT Please call. Different abx called in documented in this encounter Plan of Treatment Not on file documented as of this encounter Visit Diagnoses Not on filedocumented in this encounter Additional Health Concerns Assessment Noted Time PHQ-9 Depression Total Score: 0 11/14/19 25 6:12 PM CDT documented as of this encounter Care Teams Cream Beater Relationship Specialty Start Date End Date Joni Ortega MD #[address] [address] PCP - General Family Medicine 12/26/20 Marvin Shaikh MD [address] [place] [address] Consulting Physician Oncology 07/22/17 John Paul Sharif MD [address] [place] [address] Consulting Physician Orthopaedic Surgery 07/22/17 Joni Manning MD 4 [facility] [address] [place] [address] Consulting Physician Neurology 02/15/18 Mark Bettencourt DO 4 [facility] [address] [place] [address] Gastroenterology 06/07/18 Gabrielle Jones MD #2 [facility] [address] [place] [address] Consulting Physician Orthopaedic Surgery 09/17/24 documented as of this encounter
--- OUTSIDE RECORDS SUMMARY | 2024-11-14 15:35 | XMS_ITS | Encounter Summary ---
Author Organization [facility] Address [address] [place] [address] Phone Care Team Providers Care Environmental Technician Name Role Phone Marvin Shaikh MD Unavailable [phone] John Paul Sharif MD Unavailable [phone] Joni Manning MD Unavailable [phone] Joni Ortega MD Primary Care Provider [phone] Mark Bettencourt DO Unavailable [phone] Garrison Martinez MD Primary Care Provider [phone] Joni Ortega MD Primary Care Provider [phone] Gabrielle Jones MD Unavailable Reason for Visit * Reason Onset Date Comments ED Follow-up 11/03/2020 [facility] for right knee pain Results 11/03/2020 knee xray Encounter Details Date Type Department Care Team (Late st Contact Info) Description 11/03/2020 Telephone [facility] #[address] [place] [address] Joni Ortega MD #[address] [address] ED Follow-up ([facility] 11/01/20 for right knee pain); Results (knee [...] 1:54 PM CDT Patient calling. Was at [facility] ER on 11/01/20 for right knee pain. [...] Total Score: 0 05/02/20 20 10:00 AM ENVIRONMENTAL SPECIALIST documented as of this encounter Care Teams Environmental Technician Relationship Specialty Start Date End Date Joni Ortega MD #[address] [facility] [place] [address] PCP - General Family Medicine 03/07/18 12/23/20 Garrison Martinez MD #[address] [facility] [place] [address] PCP - General Family Medicine 12/24/20 12/25/20 Joni Ortega MD #[address] [facility] [address] [place] [address] PCP - General Family Medicine 12/26/20 Marvin Shaikh MD [address] [place] [address] Consulting Physician Oncology 07/22/17 John Paul Sharif MD [address] [facility] [address] [place] [address] Consulting Physician Orthopaedic Surgery 07/22/17 Joni Manning MD 4 [facility] [address] [place] [address] Consulting Physician Neurology 02/15/18 Mark Bettencourt DO #[address] [address] Gastroenterology 06/07/18 Gabrielle Jones MD [address] [address] Consulting Physician Orthopaedic Surgery 09/17/24 documented as of this encounter
--- OUTSIDE RECORDS SUMMARY | 2024-11-14 15:35 | XMS_ITS | Encounter Summary ---
Author Organization [facility] Address [address] [place] [address] Phone Care Team Providers Care Health Promotion Manager Name Role Phone Marvin Shaikh MD Unavailable [phone] John Paul Sharif MD Unavailable [phone] Joni Manning MD Unavailable Mark Bettencourt DO Unavailable [phone] Joni Ortega MD Primary Care Provider [phone] Gabrielle Jones MD Unavailable Reason for Referral * Radiology Services (Routine) - Closed Specialty Diagnoses / Procedures Referred By Briseida meier Referred To Contact Radiology Diagnoses Chronic cough Weight loss Procedures XR CHEST 2 VIEWS Joni Ortega MD #[address] [address] Phone: tel: fax: Referral ID Status Reason Start Date Expiration Date Visits Re quested Visits Authorized [id number] Closed 11/13/2024 1 1 Reason for Visit * Radiology Services (Routine) - Closed Specialty Diagnoses / Procedures Referred By Briseida meier Referred To Contact Radiology Diagnoses Chronic cough Weight loss Procedures XR CHEST 2 VIEWS Joni Ortega MD #2 [facility] [place] [address] Phone: tel: fax: Referral ID Status Reason Start Date Expiration Date Visits Re quested Visits Authorized [id number] Closed 11/13/2024 1 1 Encounter Details Date Type Department Care Team (Latest Contact Info) Description 11/13/2024 3:59 PM CDT - 11/13/2024 11:59 PM CDT Hospital Encounter [facility] Diagnostic Radiology [address] [place] [address] Joni Ortega MD [address] [address] Arrived Discharge Disposition: Discharged to home or Selfcare Social History Tobacco Use Types Packs/Day Years [...] on file documented as of this encounter Functional Status * Question Answer Date of Assessment Author Little interest or pleasure in doing things Not at all 11/13/2024 6:12 PM CDT Maricruz Chamorro RMA Feeling down, depressed, or hopeless Not at all 11/13/2024 6:12 PM CDT Maricruz Chamorro RMA * Over the past 2 weeks, how often have you been bothered by any of the following problems? Question Answer Date of Assessment Author Patient Health Questionnaire -2 Score 0 11/13/2024 6:12 PM CDT Maricruz Chamorro RMA documented as of this encounter Medications at Time of Discharge albuterol 108 (90 Base) MCG/ACT Aerosol Solution take 2 Puffs by inhalation every 6 hours as needed for Wheezing. 8.5 g 10/30/2024 Albuterol Sulfate (ProAir RespiClick) 108 (90 Base) MCG/ACT AEROSOL POWDER, BREATH ACTIVATED take 2 Puffs by inhalation 4 times daily as needed for Wheezing. 1 Each 12 11/18/2022 tiZANidine (ZANAFLEX) 2 MG TabletIndication s:Humeral head fracture, left, closed, initial encounter Take 1 Tablet by mouth 3 times daily. 90 Tablet 10/30/2024 zolpidem (AMBIEN) 5 MG TabletIndication s:Primary insomnia Take 1 Tablet by mouth nightly as needed for Sleep. 30 Tablet 11/13/2024 ciprofloxacin (CIPRO) 500 MG Tablet Take 1 Tablet by mouth 2 times daily for 5 days. 10 Tablet 11/13/2024 documented as of this encounter Plan of Treatment Pending Results Name Type Priority Associated Diagnoses Date /Time XR CHEST 2 VIEWS Imaging Routine Chronic cough Weight loss 11/13/2024 4:13 PM CDT Scheduled Orders Name Type Priority Associated Diagnoses Orde r Schedule XR CHEST 2 VIEWS Imaging Routine Chronic cough Weight loss 1 Occurrences starting 11/13/2024 until 11/13/2024 documented as of this encounter Visit Diagnoses Diagnosis Chronic cough Cough Weight loss Loss of weight documented in this encounter Additional Health Concerns Assessment Noted Time PHQ-9 Depression Total Score: 0 11/14/19 6:12 PM CDT documented as of this encounter Care Teams Health Promotion Manager Relationship Specialty Start Date End Date Joni Ortega MD #2 [facility] [address] [place] [address] PCP - General Family Medicine 12/26/20 Marvin Shaikh MD [address] [place] [address] Consulting Physician Oncology 07/22/17 John Paul Sharif MD [address] [place] [address] Consulting Physician Orthopaedic Surgery 07/22/17 Joni Manning MD 4 [facility] [address] [place] [address] Consulting Physician Neurology 02/15/18 Mark Bettencourt DO [address] [place] [address] [address] [place] [address] Gastroenterology 06/07/18 Gabrielle Jones MD #2 [facility] [address] [place] [address] Consulting Physician Orthopaedic Surgery 09/17/24 documented as of this encounter
--- OUTSIDE RECORDS SUMMARY | 2024-11-14 15:35 | XMS_ITS | Encounter Summary ---
Author Organization [facility] Address [address] [place] [address] Phone Care Team Providers Care Hemodialysis Lab Technician Name Role Phone Marvin Shaikh MD Unavailable John Paul Sharif MD Unavailable [phone] Joni Manning MD Unavailable [phone] Mark Bettencourt DO Unavailable [phone] Joni Ortega MD Primary Care Provider [phone] Gabrielle Jones MD Unavailable Reason for Visit * Reason Comments Medication Refill Encounter Details Date Type Department Care Team (Late st Contact Info) Description 05/20/2023 Refill [facility] [address] [place] [address] Joni Ortega MD #[address] [address] Medication Refill Social History Tobacco Use Types [...] Saadia Lan RN - 05/20/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 documented in this encounter Plan of Treatment Not on file documented as of this encounter Visit Diagnoses Not on filedocumented in this encounter Additional Health Concerns Assessment Noted Time PHQ-9 Depression Total Score: 14 023 10:00 AM CDT documented as of this encounter Care Teams Hemodialysis Lab Technician Relationship Specialty Start Date End Date Joni Ortega MD #[address] [address] PCP - General Family Medicine 12/26/20 Marvin Shaikh MD [address] [place] [address] Consulting Physician Oncology 07/22/17 John Paul Sharif MD [address] [place] [address] Consulting Physician Orthopaedic Surgery 07/22/17 Joni Manning MD [address] [facility] [address] [place] [address] Consulting Physician Neurology 02/15/18 Mark Bettencourt DO [address] [facility] [address] [place] [address] Gastroenterology 06/07/18 Gabrielle Jones MD #2 [facility] [address] [place] [address] Consulting Physician Orthopaedic Surgery 09/17/24 documented as of this encounter
--- OUTSIDE RECORDS SUMMARY | 2024-11-14 15:35 | XMS_ITS | Encounter Summary ---
Author Organization [facility] Address [address] [place] [address] Phone Care Team Providers Care Language Teacher Name Role Phone Marvin Shaikh MD Unavailable [phone] John Paul Sharif MD Unavailable [phone] Joni Manning MD Unavailable Mark Bettencourt DO Unavailable [phone] Joni Ortega MD Primary Care Provider [phone] Gabrielle Jones MD Unavailable Reason for Visit * Reason Onset Date Comments Medication Management 11/14/2024 Encounter Details Date Type Department Care Team (Late st Contact Info) Description 11/14/2024 Telephone [facility] [address] [place] [address] Joni Ortega MD #[address] [address] Medication Management Social History Tobacco Use Types Packs/Day Years [...] encounter Miscellaneous Notes * Telephone Encounter - Thao Fields MA - 11/14/2024 8:35 AM CDT Patient can not corn picker her antibiotic because she takes muscle relaxer's pharmacy needs pcp approval to dispense antibiotic. * Telephone Encounter - Tanika Blair RN - 11/14/2024 8:28 AM CDT Situation: Medication management Background: Patient contacting PCP office. Assessment: Calling to request assistance with medication corn picker. Pharmacy won't release ciprofloxacin to patient due to interaction with tizanidine. Recommendation: Transferred to medication management line. documented in this encounter Plan of Treatment Not on file documented as of this encounter Visit Diagnoses Not on filedocumented in this encounter Additional Health Concerns Assessment Noted Time PHQ-9 Depression Total Score: 0 11/14/19 25 6:12 PM CDT documented as of this encounter Care Teams Language Teacher Relationship Specialty Start Date End Date Joni Ortega MD #[address] [address] PCP - General Family Medicine 12/26/20 Marvin Shaikh MD [address] [place] [address] Consulting Physician Oncology 07/22/17 John Paul Sharif MD [address] [place] [address] Consulting Physician Orthopaedic Surgery 07/22/17 Joni Manning MD [address] [facility] [address] [place] [address] Consulting Physician Neurology 02/15/18 Mark Bettencourt DO 4 [facility] [address] [place] [address] Gastroenterology 06/07/18 Gabrielle Jones MD #[address] [address] Consulting Physician Orthopaedic Surgery 09/17/24 documented as of this encounter
--- OUTSIDE RECORDS SUMMARY | 2024-11-14 15:35 | XMS_ITS | Clinical Summary ---
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 Phone Marvin Shaikh MD Unavailable [phone] John Paul Sharif MD Unavailable [phone] Joni Manning MD Unavailable [phone] Mark Bettencourt DO Unavailable [phone] Joni Ortega MD Primary Care Provider [phone] Gabrielle Jones MD Unavailable Allergies Active Allergy Reactions Criticality Noted Date Comments Bee Venom Anaphylaxis High 03/22/2017 BEE STINGS Duloxetine Hcl Hives,Diarrhea,Vomiting 05/09/20 20 Erythromycin Nausea 05/08/2015 Pregabalin Other (see Comments) 03/24/2018 Per patient suicidal Nitrofurantoin Unknown 08/24/2022 Sulfa Antibiotics Nausea 11/13/2024 Tramadol Nausea 05/08/2015 Medications Albuterol Sulfate (ProAir RespiClick) 108 (90 Base) MCG/ACT AEROSOL POWDER, BREATH ACTIVATED take 2 Puffs by inhalation 4 times daily as needed for Wheezing. 1 Each 12 3 Active albuterol 108 (90 Base) MCG/ACT Aerosol Solution take 2 Puffs by inhalation every 6 hours as needed for Wheezing. 8.5 g 5 Active tiZANidine (ZANAFLEX) 2 MG TabletIndicati ons:Humeral head fracture, left, closed, initial encounter Take 1 Tablet by mouth 3 times daily. 90 Tablet 5 Active zolpidem (AMBIEN) 5 MG TabletIndicati ons:Primary insomnia Take 1 Tablet by mouth nightly as needed for Sleep. 30 Tablet 5 Active cephALEXin (KEFLEX) 500 MG Capsule Take 1 Capsule by mouth 3 times daily for 7 days. 21 Capsule 5 11/22/19 25 Active oxyCODONE-Acet aminophen (PERCOCET) 10-325 MG Tablet Take 1 Tablet by mouth 4 times daily as needed. 1 11/08/19 25 Discontinu ed(Error) amitriptyline (ELAVIL) 10 MG TabletIndicati ons:Fibromyalg ia Take 1 Tablet by mouth nightly. 90 Tablet 3 11/08/19 25 Discontinu ed(Error) albuterol 108 (90 Base) MCG/ACT Aerosol Solution INHALE 2 PUFFS BY MOUTH EVERY 6 HOURS NEEDED FOR WHEEZING 8.5 g 3 10/25/19 25 Discontinu ed(Reorder ) Cholecalcifero l (Vitamin D3) 25 mcg Capsule Take 1 Capsule by mouth daily for 30 days. 90 Capsule 3 5 10/23/19 25 tiZANidine (ZANAFLEX) 2 MG TabletIndicati ons:Humeral head fracture, left, closed, initial encounter Take 1 Tablet by mouth 3 times daily. 90 Tablet 5 10/30/19 25 Discontinu ed(Reorder ) fluticasone-sa lmeterol (ADVAIR) 250-50 MCG/ACT AEROSOL POWDER, BREATH ACTIVATED take 1 Puff by inhalation 2 times daily. 60 Each 6 5 10/19/19 25 Discontinu ed(Reorder ) fluticasone-sa lmeterol (ADVAIR) 250-50 MCG/ACT AEROSOL POWDER, BREATH ACTIVATED take 1 Puff by inhalation 2 times daily. 60 Each 6 5 11/08/19 25 Discontinu ed(Error) Amoxicillin 500 MG Tablet Take 1 Tablet by mouth 3 times daily for 7 days. 21 Tablet 5 10/30/19 25 albuterol 108 (90 Base) MCG/ACT Aerosol Solution take 2 Puffs by inhalation every 6 hours as needed for Wheezing. 8.5 g 5 10/30/19 Discontinu ed(Reorder ) amitriptyline (ELAVIL) 25 MG Tablet Take 1 Tablet by mouth nightly. 90 Tablet 5 11/14/19 Discontinu ed(Error) sulfamethoxazo le-trimethopri m DS (BACTRIM DS, SEPTRA DS) 800-160 MG Tablet Take 1 Tablet by mouth 2 times daily for 5 days. 10 Tablet 5 11/14/19 Discontinu ed(Error) ciprofloxacin (CIPRO) 500 MG Tablet Take 1 Tablet by mouth 2 times daily for 5 days. 10 Tablet 5 11/15/19 Discontinu ed(Error) Active Problems Problem Noted Date Diagnosed Date [...] Encounters Date Type Department Care Team Description 11/14/2024 Nurse Triage [facility] [place] [address] Joni Ortega MD Abdominal Pain 11/14/2024 Telephone [facility] [address] [place] [address] [phone] Joni Ortega MD Medication Management 11/13/2024 3:59 PM CDT - 11/13/2024 11:59 PM CDT [facility] [address] [place] [phone] Joni Ortega MD Arrived Discharge Disposition: Discharged to home or Selfcare 11/13/2024 3:30 PM CDT Office Visit [facility] [place] [address] Joni Ortega MD Dysuria (Primary Dx); Chronic cough; Weight loss; Chronic fatigue; Primary insomnia Discharge Disposition: Discharged to home or Selfcare 11/12/2024 11:15 AM CDT Office Visit [facility] [place] [phone] Gabrielle Jones MD Primary osteoarthritis of left shoulder (Primary Dx); Nondisplaced fracture of lesser tuberosity of left humerus, subsequent encounter for fracture with routine healing Discharge Disposition: Discharged to home or Selfcare 11/12/2024 10:15 AM CDT - 11/12/2024 11:59 PM CDT Hospital Encounter [facility] [address] [place] [address] Gabrielle Jones MD Discharge Disposition: Discharged to home or Selfcare 11/12/2024 Travel 11/08/2024 Telephone [facility] [address] [place] [address] [phone] Joni Ortega MD Results 11/08/2024 [facility] [place] [address] Joni Ortega MD Results 11/07/2024 [facility] [place] [address] Joni Ortega MD 11/06/2024 Nurse Triage [facility] [address] [place] [address] [phone] Joni Ortega MD Insomnia 11/06/2024 [facility] [place] [address] Joni Ortega MD Medication Refill 11/05/2024 Nurse Triage [facility] [address] [place] [address] [phone] Joni Ortega MD Urinary Problem 10/29/2024 [facility] [place] [phone] Joni Ortega MD Medication Refill 10/29/2024 Nurse Triage [facility] [address] [place] [address] [phone] Joni Ortega MD Anxiety 10/28/2024 Telephone [facility] [place] [address] Joni Ortega MD Need Order 10/26/2024 Telephone [facility] [address] [place] [phone] Joni Ortega MD Need Order 10/26/2024 Telephone [facility] [phone] Gabrielle Jones MD 10/24/2024 Refill [facility] [address] [place] [phone] Joni Ortega MD Medication Refill 10/24/2024 Telephone [facility] [address] [place] [address] [phone] Joni Ortega MD Advice Only 10/24/2024 Telephone [facility] [place] [phone] Joni Ortega MD Medication Management 10/23/2024 Nurse Triage [facility] [address] [place] [phone] Joni Ortega MD Breathing Problem; Medication Management 10/22/2024 Nurse Triage [facility] [address] [place] [phone] Joni Ortega MD Sinus Problem 10/18/2024 Telephone [facility] [place] [phone] Joni Ortega MD 10/17/2024 Telephone [facility] [address] [place] [address] [phone] Joni Ortega MD Advice Only 10/16/2024 Telephone [facility] [place] [phone] Joni Ortega MD 10/15/2024 Telephone [facility] [address] [place] [phone] Joni Ortega MD Follow-up 10/09/2024 Refill [facility] [place] [phone] Nawaf Mancilla MD Medication Refill 10/09/2024 Refill [facility] [address] [place] [address] [phone] Joni Ortega MD Medication Management 10/02/2024 Telephone [facility] [address] [place] [phone] Joni Ortega MD Advice Only 09/28/2024 Telephone [facility] [address] [place] [phone] Joni Ortega MD Advice Only; Appointment 09/22/2024 Results Follow-Up [facility] [place] [phone] Nawaf Mancilla MD CULTURE, URINE, HEMOGLOBIN A1C W/ ESTIMATED GLUCOSE, CMP (COMPREHENSIVE METABOLIC PANEL), Additional followed-up results: 5 09/22/2024 Results Follow-Up [facility] [place] [phone] Nawaf Mancilla MD XR FOOT 3 OR MORE VIEWS LEFT 09/21/2024 Results Follow-Up [facility] [place] [phone] Katina Valle RN MRI LEFT SHOULDER WO CONTRAST 09/20/2024 Telephone [facility] [place] [phone] Joni Ortega MD Results; Follow-up 09/18/2024 Telephone [facility] [address] [place] [phone] Joni Ortega MD Results 09/17/2024 11:20 AM CDT - 09/17/2024 11:59 PM CDT Hospital [facility] [address] [place] [phone] Gabrielle Jones MD Discharge Disposition: Discharged to home or Selfcare 09/17/2024 11:00 AM CDT Office Visit [facility] [place] [phone] Gabrielle Jones MD Humeral head fracture, left, closed, initial encounter (Primary Dx); Dysuria Discharge Disposition: Discharged to home or Selfcare 09/17/2024 Nurse Triage [facility] [address] [place] [phone] Joni Ortega MD High Blood Pressure 09/17/2024 Travel 09/17/2024 Telephone [facility] [address] [place] [phone] Joni Ortega MD Appointment 09/14/2024 Telephone [facility] [address] [place] [phone] Joni Ortega MD 09/13/2024 3:00 PM CDT - 09/13/2024 11:59 PM CDT Hospital [facility] [address] [place] [phone] Nawaf Mancilla MD Discharge Disposition: Discharged to home or Selfcare 09/13/2024 2:15 PM CDT Office Visit [facility] [address] [place] [phone] Nawaf Mancilla MD Humeral head fracture, left, closed, initial encounter (Primary Dx); Dysuria; Hematuria, unspecified type; Obesity (BMI 30-39.9); Diet-controlled diabetes mellitus (HCC); Vitamin D deficiency; History of colon polyps; Hemorrhoids, unspecified hemorrhoid type; Pain of left lower extremity; Acute foot pain, left Discharge Disposition: Discharged to home or Selfcare 09/13/2024 Travel 09/12/2024 Refill [facility] [address] [place] [phone] Joni Ortega MD Medication Refill 08/28/2024 Telephone [facility] [address] [place] [address] [phone] Joni Ortega MD Referral 08/24/2024 Telephone [facility] [address] [place] [phone] Joni Ortega MD Follow-up; Advice Only from Last 3 Months Immunizations Immunization Administration Dates Next Due TDAP Vaccine 03/30/2015 Td, Unspecified Formulation 06/27/2010 Tetanus Toxoid, Unspecified Formulation 06/27/19 11 Family History Medical History Relation Name Comments Diabetes Father Cancer Mother LYMPHOMA Cancer Sister paraneoplastic syndrome Relation Name Status Comments Father Mother Sister Social History Tobacco Use Types Packs/Day Years Used Date Smoking Tobacco: Never Smokeless Tobacco: Never Tobacco Cessation:Counseling Given: No Alcohol Use Standard Drinks/Week Comments No 0 [...] Sign Reading Time Taken Comments Blood Pressure 128/62 11/13/2024 3:06 PM CDT Pulse 93 11/13/2024 3:06 PM CDT Temperature 36.2 C (97.2 F) 11/13/2024 3:06 PM CDT Respiratory Rate 20 11/13/2024 3:06 PM CDT Oxygen Saturation 96% 11/13/2024 3:06 PM CDT Inhaled Oxygen Concentration - - Weight 76.4 kg (168 lb 8 oz) 11/13/2024 3:06 PM CDT Height 162.6 cm (5' 4 ) 11/13/2024 3:06 PM CDT Body Mass Index 28.92 11/13/2024 3:06 PM CDT Plan of Treatment Health Maintenance Due Date [...] 11/29/2018 (Patient Temporarily Declines) Diabetes: Nephropathy Screening 11/13/2025 11/13/2024, 09/13/2024, 12/01/2022, Additional history exists 03/22/2017 Hepatitis C Virus (HCV) Screening Completed 02/23/2022 Hepatitis B Immunization Aged Out No longer eligible based on patient's age to complete this topic Human Papillomavirus (HPV) Immunization Aged Out No longer eligible b ased on patient's age to complete this topic Meningococcal Immunization (ACWY) Aged Out No longer eligible b ased on patient's age to complete this topic Rotavirus Immunization Aged Out No lo nger eligible based on patient's age to complete this topic Procedures Procedure Name Priority Date/Time Associated Diagnosis Comments CBC WITH AUTO DIFFERENTIAL Today 11/13/2024 3:59 PM CDT Chronic cough Weight loss THYROID STIMULATING HORMONE (TSH) Today 11/13/2024 3:59 PM CDT Dysuria Chronic cough Weight loss Chronic fatigue CMP (COMPREHENSIVE METABOLIC PANEL) Today 11/13/2024 3:59 PM CDT Chronic cough Weight loss COMPLETE BLOOD COUNT (CBC) WITH DIFF Today 11/13/2024 3:59 PM CDT Chronic cough Weight loss URINALYSIS REFLEX IF INDICATED BY ABNORMAL RESULTS Routine 11/08/2024 11:12 AM CDT Dysuria CULTURE, URINE Routine 11/08/2024 11:12 AM CDT Dysuria XR SHOULDER COMPLETE LEFT Routine 09/17/2024 11:36 [...] DIAG BILATERAL DIGITAL W CAD W ARTIS Routine 11/29/2017 10:24 AM CDT Bilateral nipple discharge Breast pain, left from Last 3 Months or Most Recently Relevant to Health Maintenance Results * CBC WITH AUTO DIFFERENTIAL (11/13/2024 3:59 PM CDT) Only the most recent of2 resultswithin the time period is included. WBC 7.76 4.00 - 12.00 10(3)/mcL 11/13/2024 4:18 PM CDT [facility] RBC 4.96 3.80 - 5.30 10(6)/mcL 11/13/2024 4:18 PM CDT [facility] HEMOGLOBIN (HGB) 15.1 12.0 - 15.8 g/dL 11/13/2024 4:18 PM CDT [facility] HEMATOCRIT (HCT) 45.6 36.0 - 47.0 % 11/13/2024 4:18 PM CDT [facility] MCV 91.9 82.0 - 96.0 fL 11/13/2024 4:18 PM CDT [facility] MCH 30.4 26.0 - 34.0 pg 11/13/2024 4:18 PM CDT [facility] MCHC 33.1 31.0 - 36.0 g/dL 11/13/2024 4:18 PM CDT [facility] PLATELET COUNT 279 140 - 440 10(3)/mcL 11/13/2024 4:18 PM CDT [facility] RDW 13.4 11.8 - 15.5 % 11/13/2024 4:18 PM CDT [facility] MPV 10.1 9.7 - 12.4 fL 11/13/2024 4:18 PM CDT [facility] NEUTROPHILS 58.4 47.0 - 73.0 % 11/13/2024 4:18 PM CDT [facility] LYMPHOCYTES 29.9 18.0 - 42.0 % 11/13/2024 4:18 PM CDT [facility] MONOCYTES 8.0 4.0 - 12.0 % 11/13/2024 4:18 PM CDT [facility] EOSINOPHILS 2.7 0.0 - 5.0 % 11/13/2024 4:18 PM CDT [facility] BASOPHILS 1.0 0.0 - 1.0 % 11/13/2024 4:18 PM CDT [facility] ABSOLUTE NEUTROPHILS 4.53 1.60 - 7.70 10(3)/mcL 11/13/2024 4:18 PM CDT [facility] ABSOLUTE LYMPHOCYTES 2.32 1.30 - 3.20 10(3)/mcL 11/13/2024 4:18 PM CDT [facility] ABSOLUTE MONOCYTES 0.62 0.20 - 1.00 10(3)/mcL 11/13/2024 4:18 PM CDT [facility] ABSOLUTE EOSINOPHIL 0.21 0.00 - 0.40 10(3)/mcL 11/13/2024 4:18 PM CDT [facility] ABSOLUTE BASOPHILS 0.08 0.00 - 0.10 10(3)/mcL 11/13/2024 4:18 PM CDT [facility] NRBC PER 100 WBC 0 11/14/19 4:18 PM CDT [facility] Blood Venipuncture / Unknown 11/13/2024 3:59 PM CDT 11/13/2024 4:15 PM CDT Joni Ortega MD HEMATOLOGY ORDERABLES Final R esult Performing Organization Address City/[facility]/ZIP Co de Phone Number [facility] [place] [address] * THYROID STIMULATING HORMONE (TSH) (11/13/2024 3:59 PM CDT) Only the most recent of2 resultswithin the time period is included. TSH 0.512 0.300 - 5.000 mIU/L 11/13/2024 4:53 PM CDT [facility] Blood Venipuncture / Unknown 11/13/2024 3:59 PM CDT 11/13/2024 4:15 PM CDT us Joni Ortega MD CHEMISTRY ORDERABLES Final Re sult Performing Organization Address City/[facility]/ZIP Co de Phone Number [facility] [place] [address] * (ABNORMAL) CMP (COMPREHENSIVE METABOLIC PANEL) (11/13/2024 3:59 PM CDT) Only the most recent of2 resultswithin the time period is included. SODIUM 136 136 - 145 mmol/L 11/13/2024 4:35 PM CDT [facility] POTASSIUM 4.1 3.5 - 5.1 mmol/L 11/13/2024 4:35 PM CDT [facility] CHLORIDE 103 98 - 107 mmol/L 11/13/2024 4:35 PM CDT [facility] CO2, VENOUS 24 22 - 30 mmol/L 11/13/2024 4:35 PM CDT [facility] ANION GAP 13.1 <18.0 mmol/L 11/13/2024 4:35 PM CDT [facility] GLUCOSE 121(H) 70 - 99 mg/dL 11/13/2024 4:35 PM CDT [facility] BUN 9(L) 10 - 20 mg/dL 11/13/2024 4:35 PM CDT [facility] CREATININE, BLOOD 1.00 0.60 - 1.00 mg/dL 11/13/2024 4:35 PM CDT [facility] BUN/CREATININE RATIO 9(L) 12 - 20 ratio 11/13/2024 4:35 PM CDT [facility] TOTAL PROTEIN 7.3 6.0 - 8.0 g/dL 11/13/2024 4:35 PM CDT [facility] ALBUMIN 4.6 3.5 - 5.0 g/dL 11/13/2024 4:35 PM CDT [facility] A/G RATIO 1.7 1.0 - 2.2 11/13/2024 4:35 PM CDT [facility] CALCIUM 9.9 8.7 - 10.5 mg/dL 11/13/2024 4:35 PM CDT [facility] T BILI 0.3 0.2 - 1.2 mg/dL 11/13/2024 4:35 PM CDT [facility] SGOT (AST) 22 <43 U/L 11/13/2024 4:35 PM CDT [facility] SGPT (ALT) 24 <56 U/L 11/13/2024 4:35 PM CDT [facility] ALKALINE PHOSPHATASE 99 40 - 150 U/L 11/13/2024 4:35 PM CDT [facility] IS THE PATIENT REQUIRED TO BE FASTING? No 11/13/2024 4:35 PM CDT [facility] GFR, ESTIMATED 59(L) >=60 11/13/2024 4:35 PM CDT [facility] Comment: Creatinine Clearance is the preferred criteria for selecting drug dose adjustments in renally impaired patients. The GFR is provided as additional pertinent clinical information. GFR is reported in mL/min/1.73 sq m. Calculation based on the Chronic Kidney Disease Epidemiology Collaboration (CKD- EPI) equation refit without adjustment for race. GFR, EST. >60 >=60 025 4:35 PM CDT [facility] GFR, EST. NONAFRICAN 54(L) >=60 11/13/2024 4:35 PM CDT [facility] Blood Venipuncture / Unknown 11/13/2024 3:59 PM CDT 11/13/2024 4:15 PM CDT Joni Ortega MD CHEMISTRY ORDERABLES Final Re sult [facility] [place] [address] * (ABNORMAL) URINALYSIS REFLEX IF INDICATED BY ABNORMAL RESULTS (11/08/2024 11:12 AM CDT) SPECIFIC GRAVITY 1.030 1.003 - 1.030 11/08/2024 12:42 PM CDT [facility] URINE PH 5.0 5.0 - 9.0 11/08/2024 12:42 PM CDT [facility] WBC ESTERASE 100 /uL(A) Negative 11/08/2024 12:42 PM CDT [facility] NITRITE Negative Negative 11/08/2024 12:42 PM CDT [facility] PROTEIN, RANDOM URINE 30 mg/dL(A) Negative 11/08/2024 12:42 PM CDT [facility] URINE GLUCOSE, QUAL 50 mg/dL(A) Negative 11/08/2024 12:42 PM CDT [facility] URINE KETONES Negative Negative 11/08/2024 12:42 PM CDT [facility] UROBILINOGEN Normal Normal mg/dL 11/08/2024 12:42 PM CDT [facility] URINE BLOOD 10 /uL(A) Negative adithya/ul 11/08/2024 12:42 PM CDT [facility] URINALYSIS COLOR Yellow 11/09/19 12:42 PM CDT [facility] URINALYSIS CLARITY Very Cloudy 11/08/2024 12:42 PM CDT [facility] WBC (Urine) 6-10(A) Negative, 0-5 /hpf 11/08/2024 12:42 PM CDT [facility] URINE RBC'S 0-2 Negative, 0-2 /hpf 11/08/2024 12:42 PM CDT [facility] EPITHELIAL CELLS Moderate amount /lpf 11/08/2024 12:42 PM CDT [facility] BACTERIA, URINE Moderate(A) Negative /hpf 11/08/2024 12:42 PM CDT [facility] CRYSTALS Calcium oxalate 11/08/2024 12:42 PM CDT [facility] Urine URINE SPECIMEN OBTAINED BY CLEAN CATCH PROCEDURE / Unknown Non-Phlebotomy Collection / Unknown 11/08/2024 11:12 AM CDT 11/08/2024 11:12 AM CDT Narrative [facility] - 11/08/2024 12:42 PM CDT Amorphous sediment present Joni Ortega MD URINE ORDERABLES Final Result [facility] [place] [address] * CULTURE, URINE (11/08/2024 11:12 AM CDT) Only the most recent of2 resultswithin the time period is included. CULTURE RESULTS Mixed Growth of One or More Distal Urethral Contaminants 11/09/2024 10:47 PM CDT [facility] Urine URINE SPECIMEN OBTAINED BY CLEAN CATCH PROCEDURE / Unknown Non-Phlebotomy Collection / Unknown 11/08/2024 11:12 AM CDT 11/08/2024 11:12 AM CDT us Joni Ortega MD MICROBIOLOGY - GENERAL ORDERA BLES Final Result [facility] [address] [place] [address], [place] * XR SHOULDER COMPLETE LEFT (09/17/2024 11:36 [...] Joni Cade M.D. MF: LORI Report ID: [id number] Reading Location: [id number] Procedure Note Joni Cade MD - 09/21/2024 [...] Joni Cade M.D. MF: LORI Report ID: [id number] Reading Location: [id number] IMPRESSION: 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 Gabrielle Jones MD IMG DIAGNOSTIC ORDERABLES Final Result * XR FOOT 3 OR MORE VIEWS [...] by Eulogio Baugh M.D. JR: Report ID: [id number] Reading Location: [id number] Procedure Note Eulogio Baugh MD - 09/13/2024 [...] by Eulogio Baugh M.D. JR: Report ID: [id number] Reading Location: [place] [address] IMPRESSION: No acute osseous abnormality. Nawaf Mancilla MD IM DIAGNOSTIC ORDERABLES Final Result * VITAMIN D, 25 HYDROXY TOTAL (09/13/2024 3:06 PM CDT) VITAMIN D, 25 HYDROX 28.5 ng/mL 09/13/2024 4:35 PM CDT [facility] Blood Venipuncture / Unknown 09/13/2024 3:06 PM CDT 09/13/2024 3:46 PM CDT Narrative [facility] - 09/13/2024 4:35 PM CDT Published reference ranges for Vitamin D vary depending on time and place and method of testing, and on patient's age, sex, ethnicity and levels of other measured analytes such as parathormone, calcium and phosphorus. The result should be evaluated in conjunction with clinical findings and suspicions. [employer] and Endocrine Clinical Practice Guidelines: Status Vitamin D levels (ng/mL) Deficient <=20 At risk of inadequacy 21-29 Sufficient 30-100 Centers of Disease Control and Prevention Guidelines: Status Vitamin D levels (ng/mL) Deficient <13 At risk of inadequacy 13-19 Sufficient 20-50 Possibly harmful >50 References: [employer], 2010 Dietary reference intakes for calcium and vitamin D. [place]: The National Academies Press. Peyton M, Tomy N, Adilene SHETTY, et al., Evaluation, treatment, and prevention of Vitamin D deficiency: an Endocrinology Clinical Practice Guideline. JCEM 2011 96: 7 9436-5718. Mc A, Kian C, Ernestina D, et al., Vitamin D Status: [place], , [facility] data brief, no. 59, MD Kellee: [facility] for [facility] Statistics. 2011. Nawaf Mancilla MD CHEMISTRY ORDERABLES Amalia l Result Performing Organization Address City/[facility]/ZIP Co de Phone Number [facility] [place] [address] * (ABNORMAL) HEMOGLOBIN A1C W/ ESTIMATED GLUCOSE (09/13/2024 3:06 PM CDT) HGB-A1C 6.4(H) 4.0 - 6.0 % 09/13/2024 4:03 PM CDT [facility] Est Average Glucose 137.0 mg/dL 09/13/2024 4:03 PM CDT [facility] Blood Venipuncture / Unknown 09/13/2024 3:06 PM CDT 09/13/2024 3:46 PM CDT Narrative [facility] - 09/13/2024 4:03 PM CDT HEMOGLOBIN A1C: DIABETIC PATIENTS: WELL-CONTROLLED: 6.2 - 7.0 INTERMEDIATE WELL-CONTROLLED: 7.0 - 9.0 POORLY-CONTROLLED: >9.0 Specimens containing greater than 5% of Hemoglobin F may result in lower than expected % HbA1C results. Result [facility] Nawaf Mancilla MD CHEMISTRY ORDERABLES Amalia l Result Performing Organization Address [facility] Co de Phone Number [facility] [address] [place] [address] * VITAMIN [id number] (09/13/2024 3:06 PM CDT) VITAMIN B12 424 213 - 816 pg/mL 09/13/2024 4:35 PM CDT [facility] Blood Venipuncture / Unknown 09/13/2024 3:06 PM CDT 09/13/2024 3:46 PM CDT Nawaf Mancilla MD CHEMISTRY ORDERABLES Amalia l Result [facility] [address] [place] [address] * LIPID PANEL (09/13/2024 3:06 PM CDT) [facility] CHOLESTEROL 191 <200 mg/dL 09/13/2024 4:12 PM CDT [facility] TRIGLYCERIDES 127 <150 mg/dL 09/13/2024 4:12 PM CDT [facility] HDL CHOLESTEROL 76 >40 mg/dL 4:12 PM CDT [facility] LDL 90 <130 mg/dL 09/13/2024 4:12 PM CDT [facility] VLDL 25 10 - 50 mg/dL 09/13/2024 4:12 PM CDT [facility] CHOL/HDL RATIO 2.5 0.0 - 4.4 09/13/2024 4:12 PM CDT [facility] NON-HDL CHOLESTEROL 115 <130 mg/dL 09/13/2024 4:12 PM CDT [facility] IS THE PATIENT REQUIRED TO BE FASTING? Yes 09/13/2024 4:12 PM CDT [facility] HAS THE PATIENT BEEN FASTING? Yes 09/13/2024 4:12 PM CDT [facility] Blood Venipuncture / Unknown 09/13/2024 3:06 PM CDT 09/13/2024 3:46 PM CDT Nawaf Mancilla MD CHEMISTRY ORDERABLES Amalia l Result [facility] [address] [place] [address] * (ABNORMAL) POCT UA AUTOMATED W/O MICRO (09/13/2024 2:09 PM CDT) [facility] POC UA SPECIFIC GRAVITY 1.020 URINE PH [...] Nawaf Mancilla MD POINT OF CARE TESTING ([facility]) Final Result * MRI LEFT SHOULDER WO CONTRAST (09/11/2024 12:00 AM CDT) Anatomical Region Laterality Modality UPPER EXTREMITY, shoulder Left Other 09/11/2024 Joni Ortega MD IMG MR ORDERABLES Final Resul t * HEPATITIS PANEL ACUTE (AHP) (02/23/2022 2:36 PM CDT) HEPATITIS A IGM ANTIBODY NON DETECTED NON DETECTED [address] B 02/23/2022 10:26 PM CDT [facility] Comment: IGM Antibodies to HAV not detected. Does not exclude early acute or recovered HAV infection. HEP B CORE AB (IGM) NON DETECTED NON DETECTED [address] B 02/23/2022 10:26 PM CDT [facility] Comment:IGM anti-HBC not det ected. Does not exclude the possibility of exposure to or infection with HBV. HEPATITIS B SURFACE ANTIGEN NON DETECTED NON DETECTED [place] [id number] B 02/23/2022 10:26 PM CDT [facility] Comment:A nonreactive test r esult does not exclude the possibility of exposure to or infection with Hepatitis B virus. A nonreactive test result in individuals with prior exposure to hepatitis B may be due to antigen levels below the detection limit of this assay or lack of antigen reactivity to the antibodies in this assay. hepatitis C antibody 0.08 <1 S/CO [facility] ARCH [id number] 02/23/2022 10:26 PM CDT [facility] Comment: Signal/Cutoff ratio < 0.79 is Nondetected Signal/Cutoff ratio 0.80-0.99 is Grayzone Signal/Cutoff ratio > 0.99 is Detected Supplemental assays are recommended if signal/cutoff ratio is >/=1.00. Signal/cutoff ratio result >/= 5.00 is 97% predictive of positivity for recombinant immunoblot assay (RIBA) and will be reported to the [place] Department of Public Health as required. Blood Venipuncture / Unknown 02/23/2022 2:36 PM CDT 02/23/2022 2:36 PM CDT us Joni Ortega MD HEMATOLOGY ORDERABLES Final R esult [facility] [address] [place] [address], * POCT STOOL, OCCULT BLOOD, DIAGNOSTIC (10/04/2018 8:50 AM CDT) OCCULT BLOOD, STOOL Negative Negative, Other POC HEMOCULT CONTROL [place] 10/04/2018 8:50 AM CDT Chantal Case APRN, JAYE POINT OF CARE TESTIN G (MANUAL) Final [...] to exams dated: 12/25/2008, 05/29/2013, and 05/01/2008 [facility]. BREAST TISSUE: The tissue of both breasts [...] lump. Ultrasound is performed. Electronically signed by: Chrisys Carter M.D. pw/:11/29/2017 10:52:53 Relocation Manager: Padma Rodriguez(Gil), [facility] Reading location: [facility] BI-RADS: 0 Additional Imaging Evaluation Needed [...] to exams dated: 12/25/2008, 05/29/2013, and 05/01/2008 [facility]. BREAST TISSUE: The tissue of both breasts [...] signed by: Chrissy Carter M.D. pw/:11/29/2017 10:52:53 Relocation Manager: Padma Rodriguez(R), [facility] Reading location: [facility] BI-RADS: 0 Additional Imaging Evaluation Needed us Hill Montano MD IMG MAMMO ORDERABLES Amalia l Result from Last 3 Months or Most Recently Relevant to Health Maintenance Insurance MEDICAID [place] MEDICARE C [facility] Advance Directives * Full Code (Latest Code Status on File) Date Activated Date Inactivated Comments 07/04/2016 4:32 PM 07/04/2016 11:21 PM CPR-Full Moriah tment: FULL ARREST: Attempt Resuscitation/CPR wit intubation and mechanical ventilation. PRE-ARREST: Use entire range of life support measures to stabilize the patient. Care Teams Dry Mill Operator Relationship Specialty Start Date End Date Joni Ortega MD [address] [place] [address] PCP - General Family Medicine 12/26/20 Marvin Shaikh MD [address] [place] [address] Consulting Physician Oncology 07/22/17 John Paul Sharif MD [address] [place] [address] Consulting Physician Orthopaedic Surgery 07/22/17 Joni Manning MD [address] [facility] [address] [place] [address] Consulting Physician Neurology 02/15/18 Mark Bettencourt DO [address] [facility] [address] [place] [address] Gastroenterology 06/07/18 Gabrielle Jones MD [address] [facility] [address] [place] [address] Consulting Physician Orthopaedic Surgery 09/17/24
--- OUTSIDE RECORDS SUMMARY | 2024-11-14 15:36 | XMS_ITS | Encounter Summary ---
Author Organization [facility] Address [address] [place] [address] Phone Care Team Providers Care Tafe Teacher Name Role Phone Marvin Shaikh MD Unavailable [phone] John Paul Sharif MD Unavailable [phone] Joni Manning MD Unavailable [phone] Mark Bettencourt DO Unavailable [phone] Joni Ortega MD Primary Care Provider Gabrielle Jones MD Unavailable Reason for Visit * Reason Comments Medication Refill Encounter Details Date Type Department Care Team (Late st Contact Info) Description 10/09/2024 Refill [facility] - [facility] [address] [place] [address] Nawaf Mancilla MD #[address] [address] Medication Refill Social History Tobacco Use Types [...] documented as of this encounter Care Teams Tafe Teacher Relationship Specialty Start Date End Date Joni Ortega MD [address] [facility] [address] [place] [address] PCP - General Family Medicine 12/26/20 Marvin Shaikh MD [address] [place] [address] Consulting Physician Oncology 07/22/17 John Paul Sharif MD [address] [place] [address] Consulting Physician Orthopaedic Surgery 07/22/17 Joni Manning MD 4 [facility] [address] [place] [address] Consulting Physician Neurology 02/15/18 Mark Bettencourt DO 4 [facility] [address] [place] [address] Gastroenterology 06/07/18 Gabrielle Jones MD [address] [facility] [address] [place] [address] Consulting Physician Orthopaedic Surgery 09/17/24 documented as of this encounter
--- OUTSIDE RECORDS SUMMARY | 2024-11-14 15:36 | XMS_ITS | Encounter Summary ---
Author Organization [facility] Address [address] [place] [address] Phone Care Team Providers Care Hospital Aides And Assistants Teacher Name Role Phone Marvin Shaikh MD Unavailable [phone] John Paul Sharif MD Unavailable Joni Manning MD Unavailable [phone] Mark Bettencourt DO Unavailable [phone] Joni Ortega MD Primary Care Provider [phone] Gabrielle Jones MD Unavailable Reason for Visit * Reason Onset Date Comments Referral 02/11/2021 Encounter Details Date Type Department Care Team (Late st Contact Info) Description 02/11/2021 Telephone [facility] [address] [place] [address] Joni Ortega MD #[address] [address] Referral Social History Tobacco Use Types Packs/Day [...] get her the referral. Please call patient. [phone] documented in this encounter Plan of Treatment Not on file documented as of this encounter Visit Diagnoses Not on filedocumented in this encounter Additional Health Concerns Assessment Noted Time PHQ-9 Depression Total Score: 0 05/02/20 20 10:00 AM GED INSTRUCTOR documented as of this encounter Care Teams Hospital Aides And Assistants Teacher Relationship Specialty Start Date End Date Joni Ortega MD [address]2 [facility] [address] [place] [address] PCP - General Family Medicine 12/26/20 Marvin Shaikh MD [address] [place] [address] Consulting Physician Oncology 07/22/17 John Paul Sharif MD [address] [place] [address] Consulting Physician Orthopaedic Surgery 07/22/17 Joni Manning MD [address] [facility] [address] [place] [id number] Consulting Physician Neurology 02/15/18 Mark Bettencourt DO 4 [facility] [address] [place] [id number] Gastroenterology 06/07/18 Gabrielle Jones MD [address] [place] [address] [place] [id number] Consulting Physician Orthopaedic Surgery 09/17/24 documented as of this encounter
--- OUTSIDE RECORDS SUMMARY | 2024-11-14 15:36 | XMS_ITS | Encounter Summary ---
Author Organization [facility] Address [address] [place] [address] Phone Care Team Providers Care Gender Studies Professor Name Role Phone Marvin Shaikh MD Unavailable John Paul Sharif MD Unavailable [phone] Joni Manning MD Unavailable Mark Bettencourt DO Unavailable [phone] Joni Ortega MD Primary Care Provider Gabrielle Jones MD Unavailable Reason for Visit * Reason Comments Medication Refill Encounter Details Date Type Department Care Team (Late st Contact Info) Description 2021 Refill [facility] - [facility] [address] [place] [address] Joni Ortega MD #[address] [address] Medication Refill Social History Tobacco Use Types [...] In the last 10 days, have keshawn viveros been in contact with someone who was [...] documented as of this encounter Care Teams Gender Studies Professor Relationship Specialty Start Date End Date Joni Ortega MD #2 [facility] [address] [place] [address] PCP - General Family Medicine 12/26/20 Marvin Shaikh MD [address] [place] [address] Consulting Physician Oncology 07/22/17 John Paul Sharif MD [address] [place] [address] Consulting Physician Orthopaedic Surgery 07/22/17 Joni Manning MD 4 [facility] [address] [place] [address] Consulting Physician Neurology 02/15/18 Mark Bettencourt DO 4 [facility] [address] [place] [address] Gastroenterology 06/07/18 Gabrielle Jones MD #2 [facility] [address] [place] [address] Consulting Physician Orthopaedic Surgery 09/17/24 documented as of this encounter
--- OUTSIDE RECORDS SUMMARY | 2024-11-14 15:36 | XMS_ITS | Encounter Summary ---
Author Organization [facility] Address [address] [place] [address] Phone Care Team Providers Care Printing Estimator Name Role Phone Marvin Shaikh MD Unavailable [phone] John Paul Sharif MD Unavailable [phone] Joni Manning MD Unavailable Mark Bettencourt DO Unavailable [phone] Joni Ortega MD Primary Care Provider [phone] Gabrielle Jones MD Unavailable Reason for Referral * Radiology Services (Routine) - Closed Specialty Diagnoses / Procedures Referred By Contac t Referred To Contact Radiology Diagnoses Humeral head fracture, left, closed, initial encounter Procedures XR SHOULDER COMPLETE LEFT Gabrielle Jones MD [address] [address] Phone: tel: fax: Referral ID Status Reason Start Date Expiration Date Visits Re quested Visits Authorized [id number] Closed 10/26/2024 1 1 Reason for Visit * Radiology Services (Routine) - Closed Specialty Diagnoses / Procedures Referred By Contac t Referred To Contact Radiology Diagnoses Humeral head fracture, left, closed, initial encounter Procedures XR SHOULDER COMPLETE LEFT Gabrielle Jones MD #2 [facility] [address] [place] [address] Phone: tel: fax: Referral ID Status Reason Start Date Expiration Date Visits Re quested Visits Authorized [id number] Closed 10/26/2024 1 1 Encounter Details Date Type Department Care Team (Latest Contact Info) Description 11/12/2024 10:15 AM CDT - 11/12/2024 11:59 PM CDT Hospital Encounter [facility] [address] [place] [address] Gabrielle Jones MD #[address] [address] Discharge Disposition: Discharged to home or Selfcare [...] on file documented as of this encounter Medications at [...] mouth 3 times daily. 90 Tablet 10/30/2024 amitriptyline (ELAVIL) 25 MG Tablet Take 1 Tablet by mouth nightly. 90 Tablet 11/07/2024 sulfamethoxazole -trimethoprim DS (BACTRIM DS, SEPTRA DS) 800-160 MG Tablet Take 1 Tablet by mouth 2 times daily for 5 days. 10 Tablet 11/08/2024 documented as of this encounter Plan of Treatment Pending Results Name Type Priority Associated Diagnoses Date /Time XR SHOULDER COMPLETE LEFT Imaging Routine Humeral head fracture, left, closed, initial encounter 11/12/2024 10:32 AM CDT Scheduled Orders Name Type Priority Associated Diagnoses Orde r Schedule XR SHOULDER COMPLETE LEFT Imaging Routine Humeral head fracture, left, closed, initial encounter 1 Occurrences starting 11/12/2024 until 11/12/2024 documented as of this encounter Visit Diagnoses Diagnosis Humeral head fracture, left, closed, initial encounter documented in this encounter Additional Health Concerns Assessment Noted Time PHQ-9 Depression Total Score: 0 09/14/19 25 2:00 PM CDT documented as of this encounter Care Teams Printing Estimator Relationship Specialty Start Date End Date Joni Ortega MD #2 [facility] [address] [place] [address] PCP - General Family Medicine 12/26/20 Marvin Shaikh MD [address] [place] [address] Consulting Physician Oncology 07/22/17 John Paul Sharif MD [address] [place] [address] Consulting Physician Orthopaedic Surgery 07/22/17 Joni Manning MD 4 [facility] [address] [place] [address] Consulting Physician Neurology 02/15/18 Mark Bettencourt DO 4 [facility] [address] [place] [address] Gastroenterology 06/07/18 Gabrielle Jones MD [address] [address] Consulting Physician Orthopaedic Surgery 09/17/24 documented as of this encounter
--- OUTSIDE RECORDS SUMMARY | 2024-11-14 15:36 | XMS_ITS | Encounter Summary ---
Author Organization [facility] Address [address] [place] [address] Phone Care Team Providers Care Battery Starter Name Role Phone Marvin Shaikh MD Unavailable John Paul Sharif MD Unavailable [phone] Joni Manning MD Unavailable [phone] Mark Bettencourt DO Unavailable Joni Ortega MD Primary Care Provider [phone] Gabrielle Jones MD Unavailable Reason for Referral * Radiology Services (Routine) - Closed Specialty Diagnoses / Procedures Referred By Briseida meier Referred To Contact Radiology Diagnoses Chronic cough Weight loss Procedures XR CHEST 2 VIEWS Joni Ortega MD #[address] [address] Phone: tel: fax: Referral ID Status Reason Start Date Expiration Date Visits Re quested Visits Authorized [id number] Closed 11/13/2024 1 1 Reason for Visit * Reason Comments Weight Loss Encounter Details Date Type Department Care Team (Late st Contact Info) Description 11/13/2024 3:30 PM CDT Office Visit [facility] - [facility] [address] [place] [id number] Joni Ortega MD #[address] [address] Dysuria (Primary Dx); Chronic cough; Weight loss; [...] on file documented as of this encounter Last Filed Vital Signs Vital Sign Reading [...] Mass Index 28.92 11/13/2024 3:06 PM CDT documented in this encounter Functional Status * Question Answer [...] Chamorro RMA documented as of this encounter Progress Notes * Maricruz Chamorro RMA - 11/13/2024 3:30 PM CDT Katey John, 73 y.o., female is here for Weight Loss Medication Refills: Patient reports/denies need for medication refills. Orders Pended: no Requested Prescriptions No prescriptions requested or ordered in this encounter Home Medications Medication Sig Start Date End Date Taking? Authorizing Provider albuterol 108 (90 Base) MCG/ACT Aerosol Solution take 2 Puffs by inhalation every 6 hours as neededfor Wheezing. 10/30/24 Yes Joni Ortega MD Albuterol Sulfate (ProAir RespiClick) 108 (90 Base) MCG/ACT AEROSOL POWDER, BREATH ACTIVATED take 2Puffs by inhalation 4 times daily as needed for Wheezing. 11/18/22 Yes Joni Ortega MD amitriptyline (ELAVIL) 25 MG Tablet Take 1 Tablet by mouth nightly. 11/07/24 Yes Joni Ortega MD sulfamethoxazole-trimethoprim DS (BACTRIM DS, SEPTRA DS) 800-160 MG Tablet Take 1 Tablet by mouth 2times daily for 5 days. 11/08/24 11/13/24 Yes Joni Ortega MD tiZANidine (ZANAFLEX) 2 MG Tablet Take 1 Tablet by mouth 3 times daily. 10/30/24 Yes Joni Ortega MD There are no discontinued medications. I have reviewed the home medication list with the patient and have reconciled discrepancies. The list is accurate to the best of my knowledge. Smoking Status: Social History Tobacco Use Smoking status: Never Smokeless tobacco: Never Vaping Use Vaping status: Never Used Substance Use Topics Alcohol use: No Alcohol/week: 0.0 oz Drug use: Yes Types: Marijuana Smoking Cessation Counseling Given: no Health Care Maintenance: Health Maintenance Due Topic Date Due Diabetes: Eye Exam Never done DEXA Bone Density Never done Diabetes: Foot Exam Never done SARS-COV-2 Immunization (1) Never done Zoster Immunization (1 of 2) Never done Pneumococcal Immunization (50+ years) (1 of 2 - PCV) Never done Colorectal Cancer Screening 10/05/2018 Discussion re Stopping Mammograms Never done Respiratory Syncytial Virus (RSV) Immunization (Adult) (1 - 1-dose 75+ series) Never done Td Immunization Every 10 Years (Adults With 1 Tdap) 03/30/2025 Orders Pended: no The following BPA's have been addressed with the patient today: Depression and Advanced Care Planning * Joni Ortega MD - 11/13/2024 3:30 PM CDT SUBJECTIVE: Katey John is here to follow-up/ evaluation on her 1. Dysuria 2. Chronic cough 3. Weight loss 4. Chronic fatigue 5. Primary insomnia Past Medical History Positives Diagnosis Date Adenomatous colon polyp Breast cancer (HCC) 2006 Chronic pain neuropathy CML (chronic myelocytic leukemia) (HCC) [facility] Concussion 2018 Diverticula, colon Fibromyalgia Mastitis Neuropathy, arm, left LEFT SIDE, STATES FROM FALL 2012 ERIC (obstructive sleep apnea) Personal history of chemotherapy Scoliosis Scoliosis of thoracic spine 10/29/2016 Past Surgical History: Procedure Laterality Date BREAST LUMPECTOMY Left 2007 X2 CHOLECYSTECTOMY COLONOSCOPY Left 03/22/2017 Procedure: COLONOSCOPY, DISTAL ASCENDING COLON POLYPS X 2, MULTIPLE RECTAL POLYPS, DIVERTICULOSIS, HEMORRHOIDS; Surgeon: Mark Bettencourt DO; Location: [facility]; Service: Gastroenterology CYST REMOVAL left foot FINGER AMPUTATION FINGER SURGERY Left FOOT SURGERY FOREARM SURGERY Left X3 HAND/WRIST TOE AMPUTATION Right TONSILLECTOMY Social History Tobacco Use Smoking status: Never Smokeless tobacco: Never Substance Use Topics Alcohol use: No Alcohol/week: 0.0 oz Exercise: no ROS: She denies chest pain, dyspnea, claudication, visual symptoms. She denies symptoms of transient ischemic attacks. No lightheadedness, palpitations, or syncope. No edema. She is compliant in taking her medication and denies medication side effects. Still having bladder issues Dysuria yes Has odd smell No f/c Reports poor energy Has lost 23 lbs since 10/19 per patient Fell 08/20/2024 No new diets Broke humerus. Seeing ortho dr jones Poor sleep Amitriptyline no help with sleep Cough. 6 weeks Had productive cough. Green phlegm Got abx. They helped but came back Cough got better with abx but never went away Not coughing up green phelgm Reports sweats. Few months Appetite: not there per patient over a month Outpatient Medications Marked as Taking for the 11/13/24 encounter (Office Visit) with Joni Ortega MD Medication Sig Dispense Refill albuterol 108 (90 Base) MCG/ACT Aerosol Solution take 2 Puffs by inhalation every 6 hours as neededfor Wheezing. 8.5 g 0 Albuterol Sulfate (ProAir RespiClick) 108 (90 Base) MCG/ACT AEROSOL POWDER, BREATH ACTIVATED take 2Puffs by inhalation 4 times daily as needed for Wheezing. 1 Each 12 tiZANidine (ZANAFLEX) 2 MG Tablet Take 1 Tablet by mouth 3 times daily. 90 Tablet 0 Allergies Allergen Reactions Bee Venom Anaphylaxis BEE STINGS Cymbalta [Duloxetine Hcl] Hives, Diarrhea and Vomiting Erythromycin Nausea Lyrica [Pregabalin] Other (see Comments) Per patient suicidal Macrobid [Nitrofurantoin] Unknown Sulfa Antibiotics Nausea Tramadol Nausea LABS Lab Results Component Value Date WBC 9.90 09/13/2024 HEMOGLOBIN 15.4 09/13/2024 PLATELETCNT 272 09/13/2024 CHOLESTEROL 191 09/13/2024 TRIGLYCRIDES 127 09/13/2024 TRIGLYCRIDES 122 12/01/2022 HDLCHOLESTE 76 09/13/2024 HDLCHOLESTE 77.4 12/01/2022 LDL 90 09/13/2024 LDL 124 12/01/2022 INR 1.0 08/29/2018 HGBA1C 6.4 (H) 09/13/2024 [id number] 424 09/13/2024 Lab Results Component Value Date SODIUM 133 (L) 09/13/2024 POTASSIUM 4.0 09/13/2024 CHLORIDE 101 09/13/2024 CO2VEN 22 09/13/2024 ANIONGAP 14.0 09/13/2024 GLUCOSE 140 (H) 09/13/2024 BUN 9 (L) 09/13/2024 CREATININE 0.82 09/13/2024 BCRATIO8 11 (L) 09/13/2024 TOTALPROTEIN 7.2 09/13/2024 ALBUMIN 4.4 09/13/2024 CALCIUM 9.6 09/13/2024 TBIL 0.2 09/13/2024 SGOTAST 27 09/13/2024 SGPTALT 25 09/13/2024 ALKALINEPHO 97 09/13/2024 GFRNA >60 09/13/2024 GFRA >60 09/13/2024 VTMD 28.5 09/13/2024 TSH 1.339 09/13/2024 T4FREE 1.4 12/01/2022 OBJECTIVE Well-nourished, well-developed, pleasant, cooperative 73 y.o. female in no acute distress. Vitals: 11/13/24 1506 BP: 128/62 Pulse: 93 Resp: 20 Temp: 97.2 ??F (36.2 ??C) TempSrc: Temporal SpO2: 96% Weight: 168 lb 8 oz (76.4 kg) Height: 5' 4 (1.626 m) Body mass index is 28.92 kg/m??. BP Readings from Last 3 Encounters: 11/13/24 128/62 11/12/24 130/80 09/17/24 152/82 Wt Readings from Last 3 Encounters: 11/13/24 168 lb 8 oz (76.4 kg) 11/12/24 168 lb 12.8 oz (76.6 kg) 09/17/24 183 lb (83 kg) SKIN: Warm and dry. EYES: Sclerae are clear. NECK: Supple. No thyromegaly or adenopathy, no bruits.BACK: No spine or costovertebral angle tenderness. LUNGS: not Clear to auscultation and percussion.HEART:normal rate, regular rhythm, normal S1, S2, no murmurs, rubs, clicks or gallops. ABDOMEN: Bowel sounds are active. No masses. No organomegaly, no tenderness. No bruits. EXTREMITIES: No edema. Coarse bs with inspiration. Bilaterally ASSESSMENT AND PLAN Diagnoses and all orders for this visit: Dysuria - THYROID STIMULATING HORMONE (TSH); Future - CULTURE, URINE; Future Chronic cough - XR CHEST 2 VIEWS; Future - COMPLETE BLOOD COUNT (CBC) WITH DIFF; Future - CMP (COMPREHENSIVE METABOLIC PANEL); Future - THYROID STIMULATING HORMONE (TSH); Future - ELECTROPHORESIS W/ TOTAL PROTEIN SERUM; Future Weight loss - XR CHEST 2 VIEWS; Future - COMPLETE BLOOD COUNT (CBC) WITH DIFF; Future - CMP (COMPREHENSIVE METABOLIC PANEL); Future - THYROID STIMULATING HORMONE (TSH); Future - ELECTROPHORESIS W/ TOTAL PROTEIN SERUM; Future Chronic fatigue - THYROID STIMULATING HORMONE (TSH); Future - ELECTROPHORESIS W/ TOTAL PROTEIN SERUM; Future Primary insomnia - zolpidem (AMBIEN) 5 MG Tablet; Take 1 Tablet by mouth nightly as needed for Sleep. Other orders - ciprofloxacin (CIPRO) 500 MG Tablet; Take 1 Tablet by mouth 2 times daily for 5 days. Medications Discontinued During This Encounter Medication Reason sulfamethoxazole-trimethoprim DS (BACTRIM DS, SEPTRA DS) 800-160 MG Tablet Error amitriptyline (ELAVIL) 25 MG Tablet Error No follow-ups on file. After visit summary discussed with patient. Documentation for this visit on 11/13/2024 was completed using a template. I have seen and examined the patient. Everything documented was personally performed at this visit with the necessary additions, deletions and changes made as appropriate. Left humerus fracture; seeing ortho. No surgery needed. Defer to ortho Cough/weight loss/sweats: broad diffenrential. Cbc, cmp. Chest x ray. Vitals look good afebrile. Tsh. Oxygen sats okay ;labs done two months ago looks okay overall. Dysuria: can't tolerate sufla abx. Took ost of the sugfa. I guess will give few more days of different antibiotic. Still has some dysuria and odor to urine. Ua shows trace blood. Will send urine culture Insomnia; can't fall asleep. Can't stay asleep. Chronic issue. Has tried tricyclic. Try melatonin, and other otc meds. Says in past xanax worked well. Will do ambien low dose documented in this encounter Plan of Treatment Pending Results Name Type Priority Associated Diagnoses Date /Time XR CHEST 2 VIEWS Imaging Routine Chronic cough Weight loss 11/13/2024 4:13 PM CDT ELECTROPHORESIS W/ TOTAL PROTEIN SERUM Lab Routine Chronic cough Weight loss Chronic fatigue 11/13/2024 3:59 PM CDT CULTURE, URINE Microbiology Routine Dysuria 11/13/2024 3:59 PM CDT Scheduled Orders Name Type Priority Associated Diagnoses Orde r Schedule XR CHEST 2 VIEWS Imaging Routine Chronic cough Weight loss Expected: 11/13/2024, Expires: 11/20/2024 ELECTROPHORESIS W/ TOTAL PROTEIN SERUM Lab Routine Chronic cough Weight loss Chronic fatigue Expected: 11/13/2024, Expires: 03/16/2025 CULTURE, URINE Microbiology Routine Dysuria Expected: 11/13/2024, Expires: 03/16/2025 documented as of this encounter Results * THYROID STIMULATING HORMONE (TSH) (11/13/2024 3:59 PM CDT) TSH 0.512 0.300 - 5.000 mIU/L 11/13/2024 4:53 PM CDT [facility] Blood Venipuncture / Unknown 11/13/2024 3:59 PM CDT 11/13/2024 4:15 PM CDT Joni Ortega MD CHEMISTRY ORDERABLES Final Re sult [facility] [address] [place] [address] * (ABNORMAL) CMP (COMPREHENSIVE METABOLIC PANEL) (11/13/2024 3:59 PM CDT) Pathologist [facility] SODIUM 136 136 - 145 mmol/L 11/13/2024 4:35 PM CDT [facility] POTASSIUM 4.1 3.5 - 5.1 mmol/L 11/13/2024 4:35 PM CDT [facility] CHLORIDE 103 98 - 107 mmol/L 11/13/2024 4:35 PM CDT [facility] CO2, VENOUS 24 22 - 30 mmol/L 11/13/2024 4:35 PM CDT [facility] ANION GAP 13.1 <18.0 mmol/L 11/13/2024 4:35 PM CDT [facility] GLUCOSE 121(H) 70 - 99 mg/dL 11/13/2024 4:35 PM CDT [facility] BUN 9(L) 10 - 20 mg/dL 11/13/2024 4:35 PM CDT [facility] CREATININE, BLOOD 1.00 0.60 - 1.00 mg/dL 11/13/2024 4:35 PM CDT [facility] BUN/CREATININE RATIO 9(L) 12 - 20 ratio 11/13/2024 4:35 PM CDT [facility] TOTAL PROTEIN 7.3 6.0 - 8.0 g/dL 11/13/2024 4:35 PM T [facility] ALBUMIN 4.6 3.5 - 5.0 g/dL 11/13/2024 4:35 PM [facility] A/G RATIO 1.7 1.0 - 2.2 11/13/2024 4:35 PM T [facility] CALCIUM 9.9 8.7 - 10.5 mg/dL 11/13/2024 4:35 PM [facility] T BILI 0.3 0.2 - 1.2 mg/dL 11/13/2024 4:35 PM [facility] SGOT (AST) 22 <43 U/L 11/13/2024 4:35 PM [facility] SGPT (ALT) 24 <56 U/L 11/13/2024 4:35 PM [facility] ALKALINE PHOSPHATASE 99 40 - 150 U/L 11/13/2024 4:35 PM [facility] IS THE PATIENT REQUIRED TO BE FASTING? No 11/13/2024 4:35 PM [facility] GFR, ESTIMATED 59(L) >=60 11/13/2024 4:35 PM [facility] Comment: Creatinine Clearance is the preferred criteria for selecting drug dose adjustments in renally impaired patients. The GFR is provided as additional pertinent clinical information. GFR is reported in mL/min/1.73 sq m. Calculation based on the Chronic Kidney Disease Epidemiology Collaboration (CKD- EPI) equation refit without adjustment for race. GFR, EST. >60 >=60 025 4:35 PM [facility] GFR, EST. NONAFRICAN 54(L) >=60 11/13/2024 4:35 PM [facility] Blood Venipuncture / Unknown 11/13/2024 3:59 PM CDT 11/13/2024 4:15 PM CDT Joni Ortega MD CHEMISTRY ORDERABLES Final Re sult [facility] [address] [place] [address] documented in this encounter Visit Diagnoses Diagnosis Dysuria- Primary Chronic cough Cough Weight loss Loss of weight Chronic fatigue Other malaise and fatigue Primary insomnia Persistent disorder of initiating or maintaining sleep documented in this encounter Additional Health Concerns Assessment Noted Time PHQ-9 Depression Total Score: 0 11/14/19 25 6:12 PM CDT documented as of this encounter Care Teams Battery Starter Relationship Specialty Start Date End Date Joni Ortega MD [address]2 [facility] [address] [place] [address] PCP - General Family Medicine 12/26/20 Marvin Shaikh MD [address] [facility] [address] [place] [address] Consulting Physician Oncology 07/22/17 John Paul Sharif MD [address] [facility] [address] [place] [address] Consulting Physician Orthopaedic Surgery 07/22/17 Joni Manning MD 4 [facility] [address] [place] [address] Consulting Physician Neurology 02/15/18 Mark Bettencourt DO 4 [facility] [address] [place] [address] Gastroenterology 06/07/18 Gabrielle Jones MD #2 [facility] [address] [place] [address] Consulting Physician Orthopaedic Surgery 09/17/24 documented as of this encounter
--- NOTE | 2024-11-14 16:10 | PC.NURSE ---
PT ASKED ABOUT THE WAIT AND WAS INFORMED THAT WE WOULD GET HER BACK TO A ROOM SOON POSSIBLE. PT THEN GOT UP FROM THE WHEELCHAIR AND WALKED OUT OF THE ED WITH A STEADY GAIT.
--- OUTSIDE RECORDS SUMMARY | 2024-11-14 16:17 | XMS_ITS | Encounter Summary ---
Author Organization [facility] Address [address] [place] [address] Phone Care Team Providers Care Accounts Collector Name Role Phone Marvin Shaikh MD Unavailable [phone] John Paul Sharif MD Unavailable [phone] Joni Manning MD Unavailable Mark Bettencourt DO Unavailable [phone] Joni Ortega MD Primary Care Provider Gabrielle Jones MD Unavailable Reason for Visit * Reason Comments Medication Refill Encounter Details Date Type Department Care Team (Late st Contact Info) Description 05/20/2023 Refill [facility] Medical [facility] - Family [facility] [address] [place] [address] Joni Ortega MD #[address] [address] Medication Refill Social History Tobacco Use Types [...] Saadia Lan RN - 05/20/2023 1:34 PM CLINIC ADMINISTRATOR Override warning for duplicate therapy Per nursing [...] 08/24/22 Office Visit [facility] Showing recent visits within past 365 days and meeting all other requirements Future Appointments No visits were found meeting these conditions. Showing future appointments within next 90 days and meeting all other requirements IC ADMINISTRATOR documented in this encounter Plan of Treatment Not on file documented as of this encounter Visit Diagnoses Not on filedocumented in this encounter Additional Health Concerns Assessment Noted Time PHQ-9 Depression Total Score: 14 023 10:00 AM CDT documented as of this encounter Care Teams Accounts Collector Relationship Specialty Start Date End Date Joni Ortega MD #[address] [address] PCP - General Family Medicine 12/26/20 Marvin Shaikh MD [address] [place] [address] Consulting Physician Oncology 07/22/17 John Paul Sharif MD [address] [place] [address] Consulting Physician Orthopaedic Surgery 07/22/17 Joni Manning MD [address] [facility] [address] [place] [address] Consulting Physician Neurology 02/15/18 Mark Bettencourt DO [address] [facility] [address] [place] [address] Gastroenterology 06/07/18 Gabrielle Jones MD #2 [facility] [address] [place] [address] Consulting Physician Orthopaedic Surgery 09/17/24 documented as of this encounter
--- OUTSIDE RECORDS SUMMARY | 2024-11-14 16:17 | XMS_ITS | Clinical Summary ---
Author Organization [facility] Address [address], [address] [address] Phone Care Team Providers Care Clinical Services Director Name Role Phone Marvin Shaikh MD Unavailable [phone] John Paul Sharif MD Unavailable [phone] Joni Manning MD Unavailable [phone] Mark Bettencourt DO Unavailable [phone] Joni Ortega MD Primary Care Provider [phone] Gabrielle Jones MD Unavailable Allergies Active Allergy [...] Department Care Team Description 11/14/2024 Nurse Triage [facility] [place] [address] Joni Ortega MD Abdominal Pain 11/14/2024 [facility]phone [facility] [address] [place] [address] [phone] Joni Ortega MD Medication Management 11/13/2024 3:59 PM CDT - 11/13/2024 11:59 PM CDT [facility] [address] [place] [phone] Joni Ortega MD Arrived Discharge Disposition: Discharged to home or Selfcare 11/13/2024 3:30 PM CDT Office Visit [facility] [place] [address] Joni Ortega MD Dysuria (Primary Dx); Chronic cough; Weight loss; Chronic fatigue; Primary insomnia Discharge Disposition: Discharged to home or Selfcare 11/12/2024 11:15 AM CDT Office Visit [facility] Orthopedic [facility] [address] [place] [phone] Gabrielle Jones MD Primary osteoarthritis of left shoulder (Primary Dx); Nondisplaced fracture of lesser tuberosity of left humerus, subsequent encounter for fracture with routine healing Discharge Disposition: Discharged to home or Selfcare 11/12/2024 10:15 AM CDT - 11/12/2024 11:59 PM CDT Hospital Encounter [facility] Diagnostic Radiology [address] [place] [address] Gabrielle Jones MD Discharge Disposition: Discharged to home or Selfcare 11/12/2024 Travel 11/08/2024 [facility]phone [facility] [address] [place] [address] [phone] Joni Ortega MD Results 11/08/2024 [facility] [place] [address] Joni Ortega MD Results 11/07/2024 [facility] [place] [address] Joni Ortega MD 11/06/2024 [facility] [address] [place] [address] [phone] Joni Ortega MD Insomnia 11/06/2024 [facility] [place] [address] Joni Ortega MD Medication Refill 11/05/2024 [facility] [address] [place] [address] [phone] Joni Ortega MD Urinary Problem 10/29/2024 [facility] [place] [phone] Joni Ortega MD Medication Refill 10/29/2024 Nurse [facility] [address] [place] [address] [phone] Joni Ortega MD Anxiety 10/28/2024 [facility] [place] [address] Joni Ortega MD Need Order 10/26/2024 Telephone [facility] [address] [place] [phone] Joni Ortega MD Need Order 10/26/2024 Telephone [facility] [address] [phone] Gabrielle Jones MD 10/24/2024 Refill [facility] [address] [place] [phone] Joni Ortega MD Medication Refill 10/24/2024 Telephone [facility] [address] [place] [phone] Joni Ortega MD Advice Only 10/24/2024 [facility]phone [facility] [place] [phone] Joni Ortega MD Medication Management 10/23/2024 Nurse [facility] [address] [place] [phone] Joni Ortega MD Breathing Problem; Medication Management 10/22/2024 Nurse Triage [facility] [address] [place] [phone] Joni Ortega MD Sinus Problem 10/18/2024 [facility] [place] [phone] Joni Ortega MD 10/17/2024 Telephone [facility] [address] [place] [phone] Joni Ortega MD Advice Only 10/16/2024 [facility] [place] [address] Joni Ortega MD 10/15/2024 Telephone [facility] [address] [place] [address] [phone] Joni Ortega MD Follow-up 10/09/2024 Refill [facility] [place] [phone] Nawaf Mancilla MD Medication Refill 10/09/2024 Refill [facility] [address] [place] [address] [phone] Joni Ortega MD Medication Management 10/02/2024 Telephone [facility] [address] [place] [phone] Joni Ortega MD Advice Only 09/28/2024 Telephone [facility] [address] [place] [phone] Joni Ortega MD Advice Only; Appointment 09/22/2024 Results Follow-Up [facility] [place] [phone] Nawaf Mancilla MD CULTURE, URINE, HEMOGLOBIN A1C W/ ESTIMATED GLUCOSE, CMP (COMPREHENSIVE METABOLIC PANEL), Additional followed-up results: 5 09/22/2024 Results Follow-Up [facility] [place] [phone] Nawaf Mancilla MD XR FOOT 3 OR MORE VIEWS LEFT 09/21/2024 Results Follow-Up [facility] [place] [phone] Katina Valle RN MRI LEFT SHOULDER WO CONTRAST 09/20/2024 Telephone [facility] [place] [phone] Joni Ortega MD Results; Follow-up 09/18/2024 Telephone [facility] [address] [place] [phone] Joni Ortega MD Results 09/17/2024 11:20 AM CDT - 09/17/2024 11:59 PM CDT [facility] [address] [place] [address] Gabrielle Jones MD Discharge Disposition: Discharged to home or Selfcare 09/17/2024 11:00 AM CDT [facility] [address] [place] [address] Gabrielle Jones MD Humeral head fracture, left, closed, initial encounter (Primary Dx); Dysuria Discharge Disposition: Discharged to home or Selfcare 09/17/2024 Nurse [facility]riage [facility] [address] [place] [phone] Joni Ortega MD High Blood Pressure 09/17/2024 Travel 09/17/2024 Telephone [facility] [address] [place] [phone] Joni Ortega MD Appointment 09/14/2024 Telephone [facility] [address] [place] [phone] Joni Ortega MD 09/13/2024 3:00 PM CDT - 09/13/2024 11:59 PM CDT [facility] [address] [place] [address] Nawaf Mancilla MD Discharge Disposition: Discharged to home or Selfcare 09/13/2024 2:15 PM CDT [facility] [address] [place] [address] Nawaf Mancilla MD Humeral head fracture, left, closed, initial encounter (Primary Dx); Dysuria; Hematuria, unspecified type; Obesity (BMI 30-39.9); Diet-controlled diabetes mellitus (HCC); Vitamin D deficiency; History of colon polyps; Hemorrhoids, unspecified hemorrhoid type; Pain of left lower extremity; Acute foot pain, left Discharge Disposition: Discharged to home or Selfcare 09/13/2024 Travel 09/12/2024 Refill [facility] [address] [place] [phone] Joni Ortega MD Medication Refill 08/28/2024 Telephone [facility] [address] [place] [address] [phone] Joni Ortega MD Referral 08/24/2024 Telephone [facility] [address] [place] [phone] Joni Ortega MD Follow-up; Advice Only [...] 12.00 10(3)/mcL 11/13/2024 4:[address] [facility] RBC 4.96 3.80 - 5.30 10(6)/mcL 11/13/2024 4:[address] [facility] HEMOGLOBIN (HGB) 15.1 12.0 - 15.8 g/dL 11/13/2024 4:[address] [facility] HEMATOCRIT (HCT) 45.6 36.0 - 47.0 % 11/13/2024 4:18 PM CDT [facility] MCV 91.9 82.0 - 96.0 fL 11/13/2024 4:18 PM CDT [facility] MCH 30.4 26.0 - 34.0 pg 11/13/2024 4:18 PM CDT [facility] MCHC 33.1 31.0 - 36.0 g/dL 11/13/2024 4:18 PM CDT [facility] PLATELET COUNT 279 140 - 440 10(3)/mcL 11/13/2024 4:18 PM CDT [facility] RDW 13.4 11.8 - 15.5 % 11/13/2024 4:18 PM CDT [facility] MPV 10.1 9.7 - 12.4 fL 11/13/2024 4:18 PM CDT [facility] NEUTROPHILS 58.4 47.0 - 73.0 % 11/13/2024 4:18 PM CDT [facility] LYMPHOCYTES 29.9 18.0 - 42.0 % 11/13/2024 4:18 PM CDT [facility] MONOCYTES 8.0 4.0 - 12.0 % 11/13/2024 4:18 PM CDT [facility] EOSINOPHILS 2.7 0.0 - 5.0 % 11/13/2024 4:18 PM CDT [facility] BASOPHILS 1.0 0.0 - 1.0 % 11/13/2024 4:18 PM CDT [facility] ABSOLUTE NEUTROPHILS 4.53 1.60 - 7.70 10(3)/mcL 11/13/2024 4:18 PM CDT [facility] ABSOLUTE LYMPHOCYTES 2.32 1.30 - 3.20 10(3)/mcL 11/13/2024 4:18 PM CDT [facility] ABSOLUTE MONOCYTES 0.62 0.20 - 1.00 10(3)/mcL 11/13/2024 4:18 PM CDT [facility] ABSOLUTE EOSINOPHIL 0.21 0.00 - 0.40 10(3)/mcL 11/13/2024 4:18 PM CDT [facility] ABSOLUTE BASOPHILS 0.08 0.00 - 0.10 10(3)/mcL 11/13/2024 4:18 PM CDT [facility] NRBC PER 100 WBC 0 11/14/19 4:18 PM CDT [facility] Blood Venipuncture / Unknown 11/13/2024 3:59 PM CDT 11/13/2024 4:15 PM CDT Joni Ortega MD HEMATOLOGY ORDERABLES Final R esult Performing Organization Address City/[facility]/ZIP Co de Phone Number [facility] [address] [place] [address] * THYROID STIMULATING HORMONE (TSH) (11/13/2024 3:59 PM CDT) Only the most recent of2 resultswithin the time period is included. TSH 0.512 0.300 - 5.000 mIU/L 11/13/2024 4:53 PM CDT [facility] Blood Venipuncture / Unknown 11/13/2024 3:59 PM CDT 11/13/2024 4:15 PM CDT us Joni Ortgea MD CHEMISTRY ORDERABLES Final Re sult Performing Organization Address City/[facility]/ZIP Co de Phone Number [facility] [address] [place] [address] * (ABNORMAL) CMP (COMPREHENSIVE METABOLIC PANEL) (11/13/2024 3:59 PM CDT) Only the most recent of2 resultswithin the time period is included. SODIUM 136 136 - 145 mmol/L 11/13/2024 4:35 PM CDT [facility] POTASSIUM 4.1 3.5 - 5.1 mmol/L 11/13/2024 4:35 PM CDT [facility] CHLORIDE 103 98 - 107 mmol/L 11/13/2024 4:35 PM CDT [facility] CO2, VENOUS 24 22 - 30 mmol/L 11/13/2024 4:35 PM CDT [facility] ANION GAP 13.1 <18.0 mmol/L 11/13/2024 4:35 PM CDT [facility] GLUCOSE 121(H) 70 - 99 mg/dL 11/13/2024 4:35 PM CDT [facility] BUN 9(L) 10 - 20 mg/dL 11/13/2024 4:35 PM CDT [facility] CREATININE, BLOOD 1.00 0.60 - 1.00 mg/dL 11/13/2024 4:35 PM CDT [facility] BUN/CREATININE RATIO 9(L) 12 - 20 ratio 11/13/2024 4:35 PM CDT [facility] TOTAL PROTEIN 7.3 6.0 - 8.0 g/dL 11/13/2024 4:35 PM CDT [facility] ALBUMIN 4.6 3.5 - 5.0 g/dL 11/13/2024 4:35 PM CDT [facility] A/G RATIO 1.7 1.0 - 2.2 11/13/2024 4:35 PM CDT [facility] CALCIUM 9.9 8.7 - 10.5 mg/dL 11/13/2024 4:35 PM CDT [facility] T BILI 0.3 0.2 - 1.2 mg/dL 11/13/2024 4:35 PM CDT [facility] SGOT (AST) 22 <43 U/L 11/13/2024 4:35 PM CDT [facility] SGPT (ALT) 24 <56 U/L 11/13/2024 4:35 PM CDT [facility] ALKALINE PHOSPHATASE 99 40 - 150 U/L 11/13/2024 4:35 PM CDT [facility] IS THE PATIENT REQUIRED TO BE FASTING? No 11/13/2024 4:35 PM CDT [facility] GFR, ESTIMATED 59(L) >=60 11/13/2024 4:35 PM CDT [facility] Comment: Creatinine Clearance is the preferred criteria for selecting drug dose adjustments in renally impaired patients. The GFR is provided as additional pertinent clinical information. GFR is reported in mL/min/1.73 sq m. Calculation based on the Chronic Kidney Disease Epidemiology Collaboration (CKD- EPI) equation refit without adjustment for race. GFR, EST. >60 >=60 025 4:35 PM CDT [facility] GFR, EST. NONAFRICAN 54(L) >=60 11/13/2024 4:35 PM CDT [facility] Blood Venipuncture / Unknown 11/13/2024 3:59 PM CDT 11/13/2024 4:15 PM CDT Joni Ortega MD CHEMISTRY ORDERABLES Final Re sult [facility] [address] [place] [address] * (ABNORMAL) URINALYSIS REFLEX IF INDICATED BY ABNORMAL RESULTS (11/08/2024 11:12 AM CDT) SPECIFIC GRAVITY 1.030 1.003 - 1.030 11/08/2024 12:42 PM CDT [facility] URINE PH 5.0 5.0 - 9.0 11/08/2024 12:42 PM CDT [facility] WBC ESTERASE 100 /uL(A) Negative 11/08/2024 12:42 PM CDT [facility] NITRITE Negative Negative 11/08/2024 12:42 PM CDT [facility] PROTEIN, RANDOM URINE 30 mg/dL(A) Negative 11/08/2024 12:42 PM CDT [facility] URINE GLUCOSE, QUAL 50 mg/dL(A) Negative 11/08/2024 12:42 PM CDT [facility] URINE KETONES Negative Negative 11/08/2024 12:42 PM CDT [facility] UROBILINOGEN Normal Normal mg/dL 11/08/2024 12:42 PM CDT [facility] URINE BLOOD 10 /uL(A) Negative adithya/ul 11/08/2024 12:42 PM CDT [facility] URINALYSIS COLOR Yellow 11/09/19 12:42 PM CDT [facility] URINALYSIS CLARITY Very Cloudy 11/08/2024 12:42 PM CDT [facility] WBC (Urine) 6-10(A) Negative, 0-5 /hpf 11/08/2024 12:42 PM CDT [facility] URINE RBC'S 0-2 Negative, 0-2 /hpf 11/08/2024 12:42 PM CDT [facility] EPITHELIAL CELLS Moderate amount /lpf 11/08/2024 12:42 PM CDT [facility] BACTERIA, URINE Moderate(A) Negative /hpf 11/08/2024 12:42 PM CDT [facility] CRYSTALS Calcium oxalate 11/08/2024 12:42 PM CDT [facility] Urine URINE SPECIMEN OBTAINED BY CLEAN CATCH PROCEDURE / Unknown Non-Phlebotomy Collection / Unknown 11/08/2024 11:12 AM CDT 11/08/2024 11:12 AM CDT Narrative [facility] - 11/08/2024 12:42 PM CDT Amorphous sediment present Joni Ortega MD URINE ORDERABLES Final Result [facility] [address] [place] [address] * CULTURE, URINE (11/08/2024 11:12 AM CDT) Only the most recent of2 resultswithin the time period is included. CULTURE RESULTS Mixed Growth of One or More Distal Urethral Contaminants 11/09/2024 10:47 PM CDT [facility] Urine URINE SPECIMEN OBTAINED BY CLEAN CATCH PROCEDURE / Unknown Non-Phlebotomy Collection / Unknown 11/08/2024 11:12 AM CDT 11/08/2024 11:12 AM CDT us Joni Ortega MD MICROBIOLOGY - GENERAL ORDERA BLES Final Result [facility] [address] [place] [address], [place] * XR SHOULDER COMPLETE LEFT (09/17/2024 [...] Joni Cade M.D. MF: [id number] Report ID: [id number] Reading Location: [id number] Procedure Note Joni Cade MD - 09/21/2024 [...] Joni Cade M.D. MF: [email or web address] Report ID: [id number] Reading Location: [id number] IMPRESSION: Mild left glenohumeral and moderate acromioclavicular [...] by Eulogio Baugh M.D. JR: Report ID: [id number] Reading Location: [id number] Procedure Note Eulogio Buagh MD - 09/13/2024 EXAM DESCRIPTION: XR FOOT [...] by Eulogio Baugh M.D. JR: Report ID: [id number] Reading Location: [place] [address] IMPRESSION: No acute osseous abnormality. Nawaf Mancilla MD IM DIAGNOSTIC ORDERABLES Final Result * VITAMIN D, 25 HYDROXY TOTAL (09/13/2024 3:06 PM CDT) VITAMIN D, 25 HYDROX 28.5 ng/mL 09/13/2024 4:35 PM CDT [facility] Blood Venipuncture / Unknown 09/13/2024 3:06 PM CDT 09/13/2024 3:46 PM CDT Narrative [facility] - 09/13/2024 4:35 PM CDT Published reference ranges for Vitamin D vary depending on time and place and method of testing, and on patient's age, sex, ethnicity and levels of other measured analytes such as parathormone, calcium and phosphorus. The result should be evaluated in conjunction with clinical findings and suspicions. [employer] [facility] [employer] Clinical Practice Guidelines: Status Vitamin D levels (ng/mL) Deficient <=20 At risk of inadequacy 21-29 Sufficient 30-100 Centers of Disease Control and Prevention Guidelines: Status Vitamin D levels (ng/mL) Deficient <13 At risk of inadequacy 13-19 Sufficient 20-50 Possibly harmful >50 References: [employer], 2010 Dietary reference intakes for calcium and vitamin D. [place]: The National Academies Press. Peyton M, Tomy N, Adilene SHETTY, et al., Evaluation, treatment, and prevention of Vitamin D deficiency: an Endocrinology Clinical Practice Guideline. JCEM 2011 96: 7 4805-5329. Mc A, Kian C, Ernestina D, et al., Vitamin D Status: [place], , [facility] data brief, no. 59, MD Kellee: [facility] Ed for [facility] Statistics. 2011. Nawaf Mancilla MD CHEMISTRY ORDERABLES Amalia l Result Performing Organization Address City/[facility]/ZIP Co de Phone Number [facility] [address] [place] [address] * (ABNORMAL) HEMOGLOBIN A1C W/ ESTIMATED GLUCOSE (09/13/2024 3:06 PM CDT) HGB-A1C 6.4(H) 4.0 - 6.0 % 09/13/2024 4:03 PM CDT [facility] Est Average Glucose 137.0 mg/dL 09/13/2024 4:03 PM CDT [facility] Blood Venipuncture / Unknown 09/13/2024 3:06 PM CDT 09/13/2024 3:46 PM CDT Narrative [facility] - 09/13/2024 4:03 PM CDT HEMOGLOBIN A1C: DIABETIC PATIENTS: WELL-CONTROLLED: 6.2 - 7.0 INTERMEDIATE WELL-CONTROLLED: 7.0 - 9.0 POORLY-CONTROLLED: >9.0 Specimens containing greater than 5% of Hemoglobin F may result in lower than expected % HbA1C results. Result [facility] Nawaf Mancilla MD CHEMISTRY ORDERABLES Amalia l Result Performing Organization Address [facility] Co de Phone Number [facility] [address] [place] [address] * VITAMIN B12 (09/13/2024 3:06 PM CDT) VITAMIN B12 424 213 - 816 pg/mL 09/13/2024 4:35 PM CDT [facility] Blood Venipuncture / Unknown 09/13/2024 3:06 PM CDT 09/13/2024 3:46 PM CDT Nawaf Mancilla MD CHEMISTRY ORDERABLES Amalia l Result [facility] [address] [place] [address] * LIPID PANEL (09/13/2024 3:06 PM CDT) [facility] CHOLESTEROL 191 <200 mg/dL 09/13/2024 4:12 PM CDT [facility] TRIGLYCERIDES 127 <150 mg/dL 09/13/2024 4:12 PM CDT [facility] HDL CHOLESTEROL 76 >40 mg/dL 4:12 PM CDT [facility] LDL 90 <130 mg/dL 09/13/2024 4:12 PM CDT [facility] VLDL 25 10 - 50 mg/dL 09/13/2024 4:12 PM CDT [facility] CHOL/HDL RATIO 2.5 0.0 - 4.4 09/13/2024 4:12 PM CDT [facility] NON-HDL CHOLESTEROL 115 <130 mg/dL 09/13/2024 4:12 PM CDT [facility] IS THE PATIENT REQUIRED TO BE FASTING? Yes 09/13/2024 4:12 PM CDT [facility] HAS THE PATIENT BEEN FASTING? Yes 09/13/2024 4:12 PM CDT [facility] Blood Venipuncture / Unknown 09/13/2024 3:06 PM CDT 09/13/2024 3:46 PM CDT Nawaf Mancilla MD CHEMISTRY ORDERABLES Amalia l Result [facility] [address] [place] [address] * (ABNORMAL) POCT UA AUTOMATED W/O MICRO (09/13/2024 2:09 PM CDT) [facility] POC UA SPECIFIC GRAVITY 1.020 URINE [...] Nawaf Mancilla MD POINT OF CARE TESTING ([facility]) Final Result * MRI LEFT SHOULDER WO CONTRAST (09/11/2024 12:00 AM CDT) Anatomical Region Laterality Modality UPPER EXTREMITY, shoulder Left Other 09/11/2024 Joni Ortega MD IMG MR ORDERABLES Final Resul t * HEPATITIS PANEL ACUTE (AHP) (02/23/2022 2:36 PM CDT) HEPATITIS A IGM ANTIBODY NON DETECTED NON DETECTED [address] B 02/23/2022 10:26 PM CDT [facility] Comment: IGM Antibodies to HAV not detected. Does not exclude early acute or recovered HAV infection. HEP B CORE AB (IGM) NON DETECTED NON DETECTED [address] B 02/23/2022 10:26 PM CDT [facility] Comment:IGM anti-HBC not det ected. Does not exclude the possibility of exposure to or infection with HBV. HEPATITIS B SURFACE ANTIGEN NON DETECTED NON DETECTED [place] [id number] B 02/23/2022 10:26 PM CDT [facility] Comment:A nonreactive test r esult does not exclude the possibility of exposure to or infection with Hepatitis B virus. A nonreactive test result in individuals with prior exposure to hepatitis B may be due to antigen levels below the detection limit of this assay or lack of antigen reactivity to the antibodies in this assay. hepatitis C antibody 0.08 <1 S/CO [facility] ARCH [id number] B 02/23/2022 10:26 PM CDT [facility] Comment: Signal/Cutoff ratio < 0.79 is Nondetected Signal/Cutoff ratio 0.80-0.99 is Grayzone Signal/Cutoff ratio > 0.99 is Detected Supplemental assays are recommended if signal/cutoff ratio is >/=1.00. Signal/cutoff ratio result >/= 5.00 is 97% predictive of positivity for recombinant immunoblot assay (RIBA) and will be reported to the [place] Department of Public Health as required. Blood Venipuncture / Unknown 02/23/2022 2:36 PM CDT 02/23/2022 2:36 PM CDT us Joni Ortega MD HEMATOLOGY ORDERABLES Final R esult [facility] [address] [place] [address], * POCT STOOL, OCCULT BLOOD, DIAGNOSTIC (10/04/2018 8:50 AM CDT) OCCULT BLOOD, STOOL Negative Negative, Other POC HEMOCULT CONTROL [employer] Pass 10/04/2018 8:50 AM CDT Chantal Case [...] to exams dated: 12/25/2008, 05/29/2013, and 05/01/2008 [facility]. BREAST TISSUE: The tissue of both [...] signed by: Chrissy Carter M.D. pw/:11/29/2017 10:52:53 Sulfur Chloride Operator: Padma Rodriguez(Gil), [facility] Reading location: [facility] BI-RADS: 0 Additional Imaging Evaluation Needed [...] to exams dated: 12/25/2008, 05/29/2013, and 05/01/2008 [facility]. BREAST TISSUE: The tissue of both [...] signed by: Chrissy Carter M.D. pw/:11/29/2017 10:52:53 Sulfur Chloride Operator: Padma Rodriguez(R), [facility] Reading location: [facility] BI-RADS: 0 Additional Imaging Evaluation Needed us iHll Montano MD IMG MAMMO ORDERABLES Amalia l Result from Last 3 Months or Most Recently Relevant to Health Maintenance Insurance MEDICAID [place] MEDICARE C [facility] Advance Directives * Full Code (Latest Code Status on File) Date Activated Date Inactivated Comments 07/04/2016 4:32 PM 07/04/2016 11:21 PM CPR-Full [place] tment: FULL ARREST: Attempt Resuscitation/CPR wit intubation and mechanical ventilation. PRE-ARREST: Use entire range of life support measures to stabilize the patient. Care Teams Clinical Services Director Relationship Specialty Start Date End Date Joni Ortega MD #2 [place] [address] PCP - General Family Medicine 12/26/20 Marvin Shaikh MD [address] [place] [address] Consulting Physician Oncology 07/22/17 John Paul Sharif MD [address] [place] [address] Consulting Physician Orthopaedic Surgery 07/22/17 oJni Manning MD 4 [facility] [address] [place] [address] Consulting Physician Neurology 02/15/18 Mark Bettencourt DO 4 [facility] [address] [place] [address] Gastroenterology 06/07/18 Gabrielle Jones MD [address] [facility] [address] [place] [address] Consulting Physician Orthopaedic Surgery 09/17/24
--- OUTSIDE RECORDS SUMMARY | 2024-11-14 16:17 | XMS_ITS | Encounter Summary ---
Author Organization [facility] Address [address] [place] [address] Phone Care Team Providers Care Coding Coordinator Name Role Phone Marvin Shaikh MD Unavailable [phone] John Paul Sharif MD Unavailable [phone] Joni Manning MD Unavailable [phone] Joni Ortega MD Primary Care Provider [phone] Mark Bettencourt DO Unavailable [phone] Garrison Martinez MD Primary Care Provider [phone] Joni Ortega MD Primary Care Provider [phone] Gabrielle Jones MD Unavailable Reason for Visit * Reason Onset Date Comments ED Follow-up 11/03/2020 [facility] right knee pain Results 11/03/2020 knee xray Encounter Details Date Type Department Care Team (Late st Contact Info) Description 11/03/2020 Telephone [facility] #[address] [place] [address] Joni Ortega MD #[address] [address] ED Follow-up ([facility] 11/01[facility]20 for right knee pain); Results (knee [...] 1:54 PM CDT Patient calling. Was at [facility] ER on 11/01/20 for right [...] Total Score: 0 05/02/20 20 10:00 AM WEIGHING STATION OPERATOR documented as of this encounter Care Teams Coding Coordinator Relationship Specialty Start Date End Date Joni Ortega MD #[address] [facility] [place] [address] PCP - General Family Medicine 03/07/18 12/23/20 Garrison Martinez MD #[address] [facility] [place] [address] PCP - General Family Medicine 12/24/20 12/25/20 Joni Ortega MD #[address] [facility] [address] [place] [address] PCP - General Family Medicine 12/26/20 Marvin Shaikh MD [address] [place] [address] Consulting Physician Oncology 07/22/17 John Paul Sharif MD [address] [facility] [address] [place] [address] Consulting Physician Orthopaedic Surgery 07/22/17 Joni Manning MD 4 [facility] [address] [place] [address] Consulting Physician Neurology 02/15/18 Mark Bettencourt DO #[address] [address] Gastroenterology 06/07/18 Gabrielle Jones MD [address] [address] Consulting Physician Orthopaedic Surgery 09/17/24 documented as of this encounter
--- OUTSIDE RECORDS SUMMARY | 2024-11-14 16:17 | XMS_ITS | Encounter Summary ---
Author Organization [facility] Address [address] [place] [address] Phone Care Team Providers Care Interlibrary Loan Services Librarian Name Role Phone Marvin Shaikh MD Unavailable [phone] John Paul Sharif MD Unavailable [phone] Joni Manning MD Unavailable [phone] Joni Ortega MD Primary Care Provider [phone] Mark Bettencourt DO Unavailable [phone] Garrison Martinez MD Primary Care Provider [phone] Joni Ortega MD Primary Care Provider [phone] Gabrielle Jones MD Unavailable Reason for Visit * Reason Onset Date Comments Other 07/10/2020 Encounter Details Date Type Department Care Team (Late st Contact Info) Description 07/10/2020 Telephone [facility] [address] [place] [address] Joni Ortega MD #[address] [address] Other Social History Tobacco Use [...] Anna Andres RN - 07/10/2020 11:21 AM STATISTICIAN Patient calling stating that she has sinus infections every year and wants to know what medication she normally gets. Per review of chart last year she received Amoxicillin. Gave patient this information. Patient did not want to be triaged just wanted the information. She ended call. ISTICIAN documented in this encounter Plan of Treatment Not on file documented as of this encounter Visit Diagnoses Not on filedocumented in this encounter Additional Health Concerns Assessment Noted Time PHQ-9 Depression Total Score: 0 05/02/20 20 10:00 AM STATISTICIAN documented as of this encounter Care Teams Interlibrary Loan Services Librarian Relationship Specialty Start Date End Date Joni Ortega MD #[address] [address] PCP - General Family Medicine 03/07/18 12/23/20 Garrison Martinez MD #[address] [address] PCP - General Family Medicine 12/24/20 12/25/20 Joni Ortega MD #[address] [address] PCP - General Family Medicine 12/26/20 Marvin Shaikh MD [address] [place] [address] Consulting Physician Oncology 07/22/17 John Paul Sharif MD [address] [place] [address] Consulting Physician Orthopaedic Surgery 07/22/17 Joni Manning MD 4 [facility] [address] [place] [address] Consulting Physician Neurology 02/15/18 Mark Bettencourt DO #[address] [facility] [address] [place] [address] Gastroenterology 06/07/18 Gabrielle Jones MD #[address] [facility] [address] [place] [address] Consulting Physician Orthopaedic Surgery 09/17/24 documented as of this encounter
--- OUTSIDE RECORDS SUMMARY | 2024-11-14 16:17 | XMS_ITS | Encounter Summary ---
Author Organization [facility] Address [address] [place] [address] Phone Care Team Providers Care Nut Threader Name Role Phone Marvin Shaikh MD Unavailable [phone] John Paul Sharif MD Unavailable [phone] Joni Manning MD Unavailable [phone] Mark Bettencourt DO Unavailable [phone] Joni Ortega MD Primary Care Provider [phone] Gabrielle Jones MD Unavailable Reason for Visit * Reason Onset Date Comments Referral 01/12/2023 External Orthope dic Referral Encounter Details Date Type Department Care Team (Late st Contact Info) Description 01/12/2023 Telephone [facility] [address] [place] [address] Joni Ortega MD #[address] [address] Referral (External Orthopedic Referral) Social History Tobacco [...] - 01/12/2023 8:45 AM CDT SITUATION: [facility] Referral Services is requesting provider review for [...] documented as of this encounter Care Teams Nut Threader Relationship Specialty Start Date End Date Joni Ortega MD #2 [facility] [address] [place] [address] PCP - General Family Medicine 12/26/20 Marvin Shaikh MD [address] [place] [address] Consulting Physician Oncology 07/22/17 John Paul Sharif MD [address] [place] [address] Consulting Physician Orthopaedic Surgery 07/22/17 Joni Manning MD 4 [facility] [address] [place] [address] Consulting Physician Neurology 02/15/18 Mark Bettencourt DO [address] [facility] [address] [place] [address] Gastroenterology 06/07/18 Gabrielle Jones MD #2 [facility] [address] [place] [address] Consulting Physician Orthopaedic Surgery 09/17/24 documented as of this encounter
--- OUTSIDE RECORDS SUMMARY | 2024-11-14 16:18 | XMS_ITS | Encounter Summary ---
Author Organization [facility] Address [address] [place] [address] Phone Care Team Providers Care Anesthesiology Physician Assistant Name Role Phone Marvin Shaikh MD Unavailable John Paul Sharif MD Unavailable [phone] Joni Manning MD Unavailable [phone] Mark Bettencourt DO Unavailable [phone] Joni Ortega MD Primary Care Provider [phone] Gabrielle Jones MD Unavailable Encounter Details Date Type Department Care Team (Late st Contact Info) Description 09/21/2024 Results Follow-Up [facility] - Family [facility] #2 [place] [id number] Katina Valle RN [place] MRI LEFT SHOULDER WO CONTRAST Social History [...] documented as of this encounter Care Teams Anesthesiology Physician Assistant Relationship Specialty Start Date End Date Joni Ortega MD #2 [facility] [address] [place] [address] PCP - General Family Medicine 12/26/20 Marvin Shaikh MD [address] [place] [address] Consulting Physician Oncology 07/22/17 John Paul Sharif MD [address] [place] [address] Consulting Physician Orthopaedic Surgery 07/22/17 Joni Manning MD 4 [facility] # [address] [place] [address] Consulting Physician Neurology 02/15/18 Mark Bettencourt DO 4 [facility] # [address] [place] [address] Gastroenterology 06/07/18 Gabrielle Jones MD #[address] [address] Consulting Physician Orthopaedic Surgery 09/17/24 documented as of this encounter
--- OUTSIDE RECORDS SUMMARY | 2024-11-14 16:18 | XMS_ITS | Referral Summary ---
Author Organization [facility] Address [address] [place] [address] Care Team Providers Care Brood Hatchery Manager Name Role Phone Joni Ortega MD Primary Care Provider Encounters Date Type Department Care Team Description 09/11/2024 8:12 AM CDT - 09/11/2024 11:59 PM CDT Hospital Encounter [facility] 1 [place] [address] Left shoulder pain, unspecified chronicity Discharge Disposition: Discharge to home or self care 09/06/2024 ACO Quality [facility] Accountable Care Organization [address] [place] [address] Soco Perez MA 08/27/2024 Telephone [facility] Medical Group Orthopedics and Sports Medicine [address] [facility] [address] [place] [address] Palak Mcdonnell PA from Last [...] are stable, reviewed previous lipid levels in [facility]. Patient has stain intolerance. Crestor (rosuvastatin)- she has not currently taking this medication Order for lipid panel was given today to be obtained. Pt voiced understanding of lab drawn and continuation of current medication regimen. Assessment & Plan (09/29/2023 5:34 PM CDT): Chronic. Well-controlled. Continue ezetimibe and rosuvastatin given signs of cerebrovascular disease on prior imaging. Assessment & Plan (06/30/2023 7:52 PM RELATIONSHIP MANAGEMENT LEAD): Chronic. Was intolerant of rosuvastatin 10 mg [...] aspirin Assessment & Plan (06/30/2023 7:52 PM RELATIONSHIP MANAGEMENT LEAD): Chronic. Continue to work on risk factor modification. Intolerant of rosuvastatin 10 mg dose. Will try Zetia. Could benefit from PCSK9 inhibitor but patient is refusing. Counseled on importance of patient to stop smoking. Cerebral atherosclerosis 06/30/2023 Assessment & Plan (09/29/2023 5:35 PM CDT): Chronic. Continue with risk factor modification with Zetia and rosuvastatin. Continue aspirin. Assessment & Plan (06/30/2023 7:53 PM RELATIONSHIP MANAGEMENT LEAD): Previously noted on imaging. Continue risk factor modification. Encouraged to stop smoking. Trial of Zetia given statin intolerance Fatty liver disease, nonalcoholic 06/30/2023 Assessment & Plan (09/29/2023 5:37 PM CDT): Liver ultrasound was previously ordered to assess. Still needs to be completed. Her upper abdominal symptoms have improved some. Monitor. Encouraged healthy diet and exercise Assessment & Plan (06/30/2023 7:53 PM RELATIONSHIP MANAGEMENT LEAD): Patient reported diagnosis. Counseled on healthy diet, [...] smoking Assessment & Plan (06/30/2023 7:51 PM RELATIONSHIP MANAGEMENT LEAD): Chronic. Breathing has improved since we started [...] interested. Assessment & Plan (06/30/2023 7:50 PM RELATIONSHIP MANAGEMENT LEAD): Patient is currently smoking. This is posing [...] 01/18/2018 Assessment & Plan (06/30/2023 7:51 PM RELATIONSHIP MANAGEMENT LEAD): Chronic. Medication care per pain management Assessment [...] 07/04/2016 Assessment & Plan (06/30/2023 7:50 PM RELATIONSHIP MANAGEMENT LEAD): Currently denies significant mental health symptoms. Patient [...] amitriptyline Assessment & Plan (06/30/2023 7:51 PM RELATIONSHIP MANAGEMENT LEAD): Chronic. Continue pain meds per pain management. [...] Overview (01/21/2023): Diagnosed in 2010. Treated at [facility]. Patient had prior bone marrow transplant. Last saw her oncologist in 2016 and has been released from care. Remains in remission Assessment & Plan (09/29/2023 5:33 PM CDT): History of AML. Remains in remission. No signs of recurrence. Monitor blood counts yearly Assessment & Plan (06/30/2023 7:50 PM RELATIONSHIP MANAGEMENT LEAD): Remote history of leukemia. Has been in remission for over a decade. Denies symptoms Assessment & Plan (01/21/2023 3:15 PM CDT): Tightness and 2011 status post bone marrow transplant. [place] to be in sustained remission. No longer [...] 12/22/2023 Assessment & Plan (06/30/2023 7:51 PM RELATIONSHIP MANAGEMENT LEAD): Care per pain management. Medications per specialist. [...] on file Legal Sex Female 11:53 PM RELATIONSHIP MANAGEMENT LEAD Gender Identity Not on file Sexual Orientation Not on file Last Filed Vital Signs Vital Sign Reading Time Taken Comments Blood Pressure 123/77 05/23/2024 11:43 AM RELATIONSHIP MANAGEMENT LEAD Pulse 80 05/23/2024 11:43 AM RELATIONSHIP MANAGEMENT LEAD Temperature 36.6 C (97.8 F) 05/23/2024 11:43 AM RELATIONSHIP MANAGEMENT LEAD Respiratory Rate 12 05/23/2024 11:43 AM RELATIONSHIP MANAGEMENT LEAD Oxygen Saturation 97% 05/23/2024 11:43 AM RELATIONSHIP MANAGEMENT LEAD Inhaled Oxygen Concentration - - Weight 84.8 kg (187 lb) 05/23/2024 11:43 AM RELATIONSHIP MANAGEMENT LEAD Height 162.6 cm (5' 4 ) 05/23/2024 11:43 AM RELATIONSHIP MANAGEMENT LEAD Body Mass Index 32.1 05/23/2024 11:43 AM RELATIONSHIP MANAGEMENT LEAD Plan of Treatment Not on file Procedures [...] more proximal bicipital groove. Tear is favored. Zidg-gx-ddghabaq tendinosis lateral supraspinatus with mild interstitial tearing. Mild tendinosis anterior infraspinatus. Moderate to severe osteoarthritis AC joint. Mild chondrosis glenohumeral joint. Mild joint effusion. THIS IS AN ELECTRONICALLY VERIFIED FINAL REPORT 09/11/2024 5:39 PM - Electronically signed by Joni Munoz M.D. MJ: MIKE Report ID: [id number] Reading Location: [id number] Procedure Note Joni Munoz MD - 09/11/2024 [...] more proximal bicipital groove. Tear is favored. Ixjj-dv-[id number] tendinosis lateral supraspinatus with mild interstitial tearing. Mild tendinosis anterior infraspinatus. Moderate to severe osteoarthritis AC joint. Mild chondrosis glenohumeral joint. Mild joint effusion. THIS IS AN ELECTRONICALLY VERIFIED FINAL REPORT 09/11/2024 5:39 PM - Electronically signed by Joni Munoz M.D. MJ: MIKE Report ID: [id number] Reading Location: [place] [address] Joni Ortega MD IMG MRI PROCEDURES Final Res ult * HEPATITIS C SCREENING (02/23/2022) SCRIBED HCV ab negative Comment:care everywhere [facility] Historical Provider HEALTH MAINTENANCE Final Result from Last 3 Months or Most Recently Relevant to Health Maintenance Insurance IDPA [facility] MEDICARE ADVANTAGE IDPA Advance Directives For more information, please contact: [phone] * Full Code (Latest Code Status on File) Date Activated Date Inactivated Comments 01/17/2018 8:25 PM 01/18/2018 6:25 PM * Full Code Date Activated Date Inactivated Comments 01/17/2018 11:55 AM 01/17/2018 8:25 PM Care Teams Brood Hatchery Manager Relationship Specialty Start Date End Date Joni Ortega MD [address] [address] PCP - General Family Medicine 08/28/24
--- OUTSIDE RECORDS SUMMARY | 2024-11-14 16:18 | XMS_ITS | Clinical Summary ---
Author Organization [facility] Address 1 [place] [address] Care Team Providers Care Furniture Designer Name Role Phone Joni Ortega MD Primary [...] are stable, reviewed previous lipid levels in [facility]. Patient has stain intolerance. Crestor [...] imaging. Assessment & Plan (06/30/2023 7:52 PM LAN SUPPORT SPECIALIST): Chronic. Was intolerant of rosuvastatin 10 mg [...] aspirin Assessment & Plan (06/30/2023 7:52 PM LAN SUPPORT SPECIALIST): Chronic. Continue to work on risk factor modification. Intolerant of rosuvastatin 10 mg dose. Will try Zetia. Could benefit from PCSK9 inhibitor but patient is refusing. Counseled on importance of patient to stop smoking. Cerebral atherosclerosis 06/30/2023 Assessment & Plan (09/29/2023 5:35 PM CDT): Chronic. Continue with risk factor modification with Zetia and rosuvastatin. Continue aspirin. Assessment & Plan (06/30/2023 7:53 PM LAN SUPPORT SPECIALIST): Previously noted on imaging. Continue risk factor modification. Encouraged to stop smoking. Trial of Zetia given statin intolerance Fatty liver disease, nonalcoholic 06/30/2023 Assessment & Plan (09/29/2023 5:37 PM CDT): Liver ultrasound was previously ordered to assess. Still needs to be completed. Her upper abdominal symptoms have improved some. Monitor. Encouraged healthy diet and exercise Assessment & Plan (06/30/2023 7:53 PM LAN SUPPORT SPECIALIST): Patient reported diagnosis. Counseled on healthy diet, [...] smoking Assessment & Plan (06/30/2023 7:51 PM LAN SUPPORT SPECIALIST): Chronic. Breathing has improved since we started [...] interested. Assessment & Plan (06/30/2023 7:50 PM LAN SUPPORT SPECIALIST): Patient is currently smoking. This is posing [...] 01/18/2018 Assessment & Plan (06/30/2023 7:51 PM LAN SUPPORT SPECIALIST): Chronic. Medication care per pain management Assessment [...] 07/04/2016 Assessment & Plan (06/30/2023 7:50 PM LAN SUPPORT SPECIALIST): Currently denies significant mental health symptoms. Patient [...] amitriptyline Assessment & Plan (06/30/2023 7:51 PM LAN SUPPORT SPECIALIST): Chronic. Continue pain meds per pain management. [...] Overview (01/21/2023): Diagnosed in 2010. Treated at [facility]. Patient had prior bone marrow transplant. Last saw her oncologist in 2016 and has been released from care. Remains in remission Assessment & Plan (09/29/2023 5:33 PM CDT): History of AML. Remains in remission. No signs of recurrence. Monitor blood counts yearly Assessment & Plan (06/30/2023 7:50 PM LAN SUPPORT SPECIALIST): Remote history of leukemia. Has been in remission for over a decade. Denies symptoms Assessment & Plan (01/21/2023 3:15 PM CDT): Tightness and 2011 status post bone marrow transplant. [place] to be in sustained remission. No longer [...] 12/22/2023 Assessment & Plan (06/30/2023 7:51 PM LAN SUPPORT SPECIALIST): Care per pain management. Medications per specialist. [...] - 09/11/2024 11:59 PM CDT Hospital Encounter [facility] 1 [place] [address] Left shoulder pain, unspecified chronicity Discharge Disposition: Discharge to home or self care 09/06/2024 ACO Quality [facility] Accountable Care Organization [address] [place] [address] Soco Perez MA 08/27/2024 Telephone [facility] Medical Group Orthopedics and Sports Medicine 4 [facility] [address] [place] [address] Palak Mcdonnell PA from Last [...] on file Legal Sex Female 11:53 PM LAN SUPPORT SPECIALIST Gender Identity Not on file Sexual Orientation Not on file Obstetrics History Para Term AB IAB SAB Ectopic Multiple Livin g Live Births 2 2 Date Outcome GA Total Labor Labor/2nd/3rd Weight Sex Type Anes PTL Nargis A1 A5 Name Clin Para Para Last Filed Vital Signs Vital Sign Reading Time Taken Comments Blood Pressure 123/77 05/23/2024 11:43 AM LAN SUPPORT SPECIALIST Pulse 80 05/23/2024 11:43 AM LAN SUPPORT SPECIALIST Temperature 36.6 C (97.8 F) 05/23/2024 11:43 AM LAN SUPPORT SPECIALIST Respiratory Rate 12 05/23/2024 11:43 AM LAN SUPPORT SPECIALIST Oxygen Saturation 97% 05/23/2024 11:43 AM LAN SUPPORT SPECIALIST Inhaled Oxygen Concentration - - Weight 84.8 kg (187 lb) 05/23/2024 11:43 AM LAN SUPPORT SPECIALIST Height 162.6 cm (5' 4 ) 05/23/2024 11:43 AM LAN SUPPORT SPECIALIST Body Mass Index 32.1 05/23/2024 11:43 AM LAN SUPPORT SPECIALIST Plan of Treatment Health Maintenance Due Date [...] more proximal bicipital groove. Tear is favored. Fqhl-ih-kkqvymck tendinosis lateral supraspinatus with mild interstitial tearing. Mild tendinosis anterior infraspinatus. Moderate to severe osteoarthritis AC joint. Mild chondrosis glenohumeral joint. Mild joint effusion. THIS IS AN ELECTRONICALLY VERIFIED FINAL REPORT 09/11/2024 5:39 PM - Electronically signed by Joni Munoz M.D. MJ: MIKE Report ID: [id number] Reading Location: [id number] Procedure Note Joni Munoz MD - 09/11/2024 [...] more proximal bicipital groove. Tear is favored. Pfsh-gc-efunceie tendinosis lateral supraspinatus with mild interstitial tearing. Mild tendinosis anterior infraspinatus. Moderate to severe osteoarthritis AC joint. Mild chondrosis glenohumeral joint. Mild joint effusion. THIS IS AN ELECTRONICALLY VERIFIED FINAL REPORT 09/11/2024 5:39 PM - Electronically signed by Joni Munoz M.D. MJ: MIKE Report ID: [id number] Reading Location: [place] [address] Joni Ortega MD IMG MRI PROCEDURES Final Res ult * HM HEPATITIS C SCREENING (02/23/2022) SCRIBED HCV ab negative Comment:care everywhere [facility] Historical Provider HEALTH MAINTENANCE Final Result from Last 3 Months or Most Recently Relevant to Health Maintenance Insurance IDPA [facility] [place] [address] [place] [address] Advance Directives For more information, please contact: [phone] * Full Code (Latest Code Status on File) Date Activated Date Inactivated Comments 01/17/2018 8:25 PM 01/18/2018 6:25 PM * Full Code Date Activated Date Inactivated Comments 01/17/2018 11:55 AM 01/17/2018 8:25 PM Care Teams Furniture Designer Relationship Specialty Start Date End Date Joni Ortega MD 2 [place] [address] PCP - General Family Medicine 08/28/24
--- OUTSIDE RECORDS SUMMARY | 2024-11-14 16:18 | XMS_ITS | Encounter Summary ---
Author Organization [facility] Address [address] [place] [address] Phone Care Team Providers Care Operations Specialists Name Role Phone Marvin Shaikh MD Unavailable [phone] John Paul Sharif MD Unavailable [phone] Joni Manning MD Unavailable [phone] Mark Bettencourt DO Unavailable [phone] Joni Ortega MD Primary Care Provider [phone] Gabrielle Jones MD Unavailable Reason for Visit * Reason Onset Date Comments Abdominal Pain 11/14/2024 Encounter Details Date Type Department Care Team (Late st Contact Info) Description 11/14/2024 Nurse Triage [facility] [place] [address] Joni Ortega MD #[address] [address] Abdominal Pain Social History Tobacco Use Types [...] documented as of this encounter Care Teams Operations Specialists Relationship Specialty Start Date End Date Joni Ortega MD #[address] [address] PCP - General Family Medicine 12/26/20 Marvin Shaikh MD [address] [place] [address] Consulting Physician Oncology 07/22/17 John Paul Sharif MD [address] [place] [address] Consulting Physician Orthopaedic Surgery 07/22/17 Joni Manning MD 4 [facility] # [address] [place] [address] Consulting Physician Neurology 02/15/18 Mark Bettencourt DO 4 [facility] # [address] [place] [address] Gastroenterology 06/07/18 Gabrielle Jones MD #2 [facility] [address] [place] [address] Consulting Physician Orthopaedic Surgery 09/17/24 documented as of this encounter
--- OUTSIDE RECORDS SUMMARY | 2024-11-14 16:18 | XMS_ITS | Encounter Summary ---
Author Organization [facility] Address [address] [place] [address] Phone Care Team Providers Care Straddle Truck Operator Name Role Phone Marvin Shaikh MD Unavailable [phone] John Paul Sharif MD Unavailable Joni Manning MD Unavailable Mark Bettencourt DO Unavailable [phone] Joni Ortega MD Primary Care Provider Gabrielle Jones MD Unavailable Reason for Visit * Reason Comments Medication Refill Encounter Details Date Type Department Care Team (Late st Contact Info) Description 10/09/2024 Refill [facility] #2 [place] [address] Nawaf Mancilla MD #[address] [address] Medication Refill Social History Tobacco Use Types [...] documented as of this encounter Care Teams Straddle Truck Operator Relationship Specialty Start Date End Date Joni Ortega MD [facility] [place] [address] PCP - General Family Medicine 12/26/20 Marvin Shaikh MD [address] [place] [address] Consulting Physician Oncology 07/22/17 John Paul Sharif MD [address] [place] [address] Consulting Physician Orthopaedic Surgery 07/22/17 Joni Manning MD 4 [facility] # [address] [place] [address] Consulting Physician Neurology 02/15/18 Mark Bettencourt DO 4 [facility] [address] [place] [address] Gastroenterology 06/07/18 Gabrielle Jones MD #2 [facility] [address] [place] [address] Consulting Physician Orthopaedic Surgery 09/17/24 documented as of this encounter
--- OUTSIDE RECORDS SUMMARY | 2024-11-14 16:18 | XMS_ITS | Encounter Summary ---
Author Organization [facility] Address [address] [place] [address] Phone Care Team Providers Care Camp Program Director Name Role Phone Marvin Shaikh MD Unavailable [phone] John Paul Sharif MD Unavailable Joni Manning MD Unavailable Mark Bettencourt DO Unavailable [phone] Joni Ortega MD Primary Care Provider [phone] Gabrielle Jones MD Unavailable Reason for Visit * Reason Onset Date Comments Referral 02/11/2021 Encounter Details Date Type Department Care Team (Late st Contact Info) Description 02/11/2021 Telephone [facility] - [facility] #2 [place] [address] Joni Ortega MD #[address] [address] Referral Social History Tobacco Use Types Packs/Day [...] get her the referral. Please call patient. [phone] documented in this encounter Plan of Treatment Not on file documented as of this encounter Visit Diagnoses Not on filedocumented in this encounter Additional Health Concerns Assessment Noted Time PHQ-9 Depression Total Score: 0 05/02/20 20 10:00 AM GLUED WOOD TESTER documented as of this encounter Care Teams Camp Program Director Relationship Specialty Start Date End Date Joni Ortega MD #2 [facility] [address] [place] [address] PCP - General Family Medicine 12/26/20 Marvin Shaikh MD [address] [place] [address] Consulting Physician Oncology 07/22/17 John Paul Sharif MD [address] [place] [address] Consulting Physician Orthopaedic Surgery 07/22/17 Joni Manning MD [address] [facility] [address] [place] [address] Consulting Physician Neurology 02/15/18 Mark Bettencourt DO 4 [facility] [address] [place] [address] Gastroenterology 06/07/18 Gabrielle Jones MD #2 [place] [address] [place] [address] Consulting Physician Orthopaedic Surgery 09/17/24 documented as of this encounter
--- OUTSIDE RECORDS SUMMARY | 2024-11-14 16:18 | XMS_ITS | Encounter Summary ---
Author Organization [facility] Address [address] [place] [address] Phone Care Team Providers Care Civil Engineer'S Aide Name Role Phone Marvin Shaikh MD Unavailable John Paul Sharif MD Unavailable [phone] Joni Manning MD Unavailable Mark Bettencourt DO Unavailable [phone] Joni Ortega MD Primary Care Provider [phone] Gabrielle Jones MD Unavailable Reason for Visit * Reason Comments Medication Refill Encounter Details Date Type Department Care Team (Late st Contact Info) Description 2021 Refill [facility] - Family [facility] #2 [place] [address] Joni Ortega MD #[address] [address] Medication Refill Social History Tobacco Use Types [...] documented as of this encounter Care Teams Civil Engineer'S Aide Relationship Specialty Start Date End Date Joni Ortega MD #2 [facility] [address] [place] [address] PCP - General Family Medicine 12/26/20 Marvin Shaikh MD [address] [place] [address] Consulting Physician Oncology 07/22/17 John Paul Sharif MD [address] [place] [address] Consulting Physician Orthopaedic Surgery 07/22/17 Joni Manning MD 4 [facility] # [address] [place] [address] Consulting Physician Neurology 02/15/18 Mark Bettencourt DO 4 [facility] # [address] [place] [address] Gastroenterology 06/07/18 Gabrielle Jones MD #[address] [facility] [address] [place] [address] Consulting Physician Orthopaedic Surgery 09/17/24 documented as of this encounter
--- OUTSIDE RECORDS SUMMARY | 2024-11-14 16:18 | XMS_ITS | Encounter Summary ---
Author Organization [facility] Address [address] [place] [address] Phone Care Team Providers Care Trampoline Team Coach Name Role Phone Marvin Shaikh MD Unavailable [phone] John Paul Sharif MD Unavailable [phone] Joni Manning MD Unavailable [phone] Mark Bettencourt DO Unavailable [phone] Joni Ortega MD Primary Care Provider [phone] Gabrielle Jones MD Unavailable Reason for Referral * Radiology Services (Routine) - Closed Specialty Diagnoses / Procedures Referred By Briseida meier Referred To Contact Radiology Diagnoses Chronic cough Weight loss Procedures XR CHEST 2 VIEWS Joni Ortega MD #[address] [address] Phone: tel: fax: Referral ID Status Reason Start Date Expiration Date Visits Re quested Visits Authorized [id number] Closed 11/13/2024 1 1 Reason for Visit * Reason Comments Weight Loss Encounter Details Date Type Department Care Team (Late st Contact Info) Description 11/13/2024 3:30 PM CDT Office Visit [facility] - [facility] #2 [place] [address] Joni Ortega MD #[address] [address] Dysuria (Primary Dx); Chronic cough; Weight loss; [...] pain neuropathy CML (chronic myelocytic leukemia) (HCC) [facility] Concussion 2018 Diverticula, colon Fibromyalgia Mastitis Neuropathy, arm, left LEFT SIDE, STATES FROM FALL 2012 ERIC (obstructive sleep apnea) Personal history of chemotherapy Scoliosis Scoliosis of thoracic spine 10/29/2016 Past Surgical History: Procedure Laterality Date BREAST LUMPECTOMY Left 2007 X2 CHOLECYSTECTOMY COLONOSCOPY Left 03/22/2017 Procedure: COLONOSCOPY, DISTAL ASCENDING COLON POLYPS X 2, MULTIPLE RECTAL POLYPS, DIVERTICULOSIS, HEMORRHOIDS; Surgeon: Mark Bettencourt DO; Location: [facility]; Service: Gastroenterology CYST REMOVAL left [...] INR 1.0 08/29/2018 HGBA1C 6.4 (H) 09/13/2024 [id number] 09/13/2024 Lab Results Component Value Date [...] - 5.000 mIU/L 11/13/2024 4:53 PM CDT [facility] Blood Venipuncture / Unknown 11/13/2024 3:59 PM CDT 11/13/2024 4:15 PM CDT Joni Ortega MD CHEMISTRY ORDERABLES Final Re sult [facility] #1 [place] [address] * (ABNORMAL) CMP (COMPREHENSIVE METABOLIC PANEL) (11/13/2024 3:59 PM CDT) Pathologist [facility] SODIUM 136 136 - 145 mmol/L 11/13/2024 4:35 PM CDT [facility] POTASSIUM 4.1 3.5 - 5.1 mmol/L 11/13/2024 4:35 PM CDT [facility] CHLORIDE 103 98 - 107 mmol/L 11/13/2024 4:35 PM CDT [facility] CO2, VENOUS 24 22 - 30 mmol/L 11/13/2024 4:35 PM CDT [facility] ANION GAP 13.1 <18.0 mmol/L 11/13/2024 4:35 PM CDT [facility] GLUCOSE 121(H) 70 - 99 mg/dL 11/13/2024 4:35 PM CDT [facility] BUN 9(L) 10 - 20 mg/dL 11/13/2024 4:35 PM CDT [facility] CREATININE, BLOOD 1.00 0.60 - 1.00 mg/dL 11/13/2024 4:35 PM CDT [facility] BUN/CREATININE RATIO 9(L) 12 - 20 ratio 11/13/2024 4:35 PM CDT [facility] TOTAL PROTEIN 7.3 6.0 - 8.0 g/dL 11/13/2024 4:35 PM T [facility] ALBUMIN 4.6 3.5 - 5.0 g/dL 11/13/2024 4:35 PM [facility] A/G RATIO 1.7 1.0 - 2.2 11/13/2024 4:35 PM T [facility] CALCIUM 9.9 8.7 - 10.5 mg/dL 11/13/2024 4:35 PM [facility] T BILI 0.3 0.2 - 1.2 mg/dL 11/13/2024 4:35 PM [facility] SGOT (AST) 22 <43 U/L 11/13/2024 4:35 PM [facility] SGPT (ALT) 24 <56 U/L 11/13/2024 4:35 PM [facility] ALKALINE PHOSPHATASE 99 40 - 150 U/L 11/13/2024 4:35 PM [facility] IS THE PATIENT REQUIRED TO BE FASTING? No 11/13/2024 4:35 PM [facility] GFR, ESTIMATED 59(L) >=60 11/13/2024 4:35 PM [facility] Comment: Creatinine Clearance is the preferred criteria for selecting drug dose adjustments in renally impaired patients. The GFR is provided as additional pertinent clinical information. GFR is reported in mL/min/1.73 sq m. Calculation based on the Chronic Kidney Disease Epidemiology Collaboration (CKD- EPI) equation refit without adjustment for race. GFR, EST. >60 >=60 025 4:35 PM [facility] GFR, EST. NONAFRICAN 54(L) >=60 11/13/2024 4:35 PM [facility] Blood Venipuncture / Unknown 11/13/2024 3:59 PM CDT 11/13/2024 4:15 PM CDT Joni Ortega MD CHEMISTRY ORDERABLES Final Re sult [facility]1 [place] [address] documented in this encounter Visit Diagnoses Diagnosis Dysuria- Primary Chronic cough Cough Weight loss Loss of weight Chronic fatigue Other malaise and fatigue Primary insomnia Persistent disorder of initiating or maintaining sleep documented in this encounter Additional Health Concerns Assessment Noted Time PHQ-9 Depression Total Score: 0 11/14/19 25 6:12 PM CDT documented as of this encounter Care Teams Trampoline Team Coach Relationship Specialty Start Date End Date Joni Ortega MD #2 [facility] [address] [place] [address] PCP - General Family Medicine 12/26/20 Marvin Shaikh MD [address] [facility] [address] [place] [address] Consulting Physician Oncology 07/22/17 John Paul Sharif MD 1 [address] [facility] [address] [place] [address] Consulting Physician Orthopaedic Surgery 07/22/17 Joni Manning MD 4 [facility] # [address] [place] [address] Consulting Physician Neurology 02/15/18 Mark Bettencourt DO 4 [facility] # [address] [place] [address] Gastroenterology 06/07/18 Gabrielle Jones MD #2 [facility] [address] [place] [address] Consulting Physician Orthopaedic Surgery 09/17/24 documented as of this encounter
--- OUTSIDE RECORDS SUMMARY | 2024-11-14 16:18 | XMS_ITS | Encounter Summary ---
Author Organization [facility] Address [address] [place] [address] Phone Care Team Providers Care Code And Test Clerk Name Role Phone Marvin Shaikh MD Unavailable [phone] John Paul Sharif MD Unavailable [phone] Joni Manning MD Unavailable Mark Bettencourt DO Unavailable [phone] Joni Ortega MD Primary Care Provider Gabrielle Jones MD Unavailable Encounter Details Date Type Department Care Team (Late st Contact Info) Description 08/23/2022 Telephone [facility] [address] [place] [address] Joni Ortega MD #[address] [address] Social History Tobacco Use Types Packs/Day Years [...] Coronavirus/COVID-19? No / Unsure 08/24/2022 12:21 PM CAR WASH MANAGER documented as of this encounter Plan of Treatment Not on file documented as of this encounter Visit Diagnoses Not on filedocumented in this encounter Additional Health Concerns Assessment Noted Time PHQ-9 Depression Total Score: 0 11/12/19 22 12:00 PM CDT documented as of this encounter Care Teams Code And Test Clerk Relationship Specialty Start Date End Date Joni Ortega MD #2 [facility] 205 [place] [address] PCP - General Family Medicine 12/26/20 Marvin Shaikh MD [address] [place] [address] Consulting Physician Oncology 07/22/17 John Paul Sharif MD [address] [place] [address] Consulting Physician Orthopaedic Surgery 07/22/17 Joni Manning MD [address] [facility] [address] [place] [address] Consulting Physician Neurology 02/15/18 Mark Bettencourt DO 4 [facility] # [address] [place] [address] Gastroenterology 06/07/18 Gabrielle Jones MD #2 [facility] [address] [place] [address] Consulting Physician Orthopaedic Surgery 09/17/24 documented as of this encounter
--- OUTSIDE RECORDS SUMMARY | 2024-11-14 16:18 | XMS_ITS | Encounter Summary ---
Author Organization [facility] Address [address] [place] [address] Phone Care Team Providers Care Enrober Name Role Phone Marvin Shaikh MD Unavailable [phone] John Paul Sharif MD Unavailable [phone] Joni Manning MD Unavailable [phone] Mark Bettencourt DO Unavailable [phone] Joni Ortega MD Primary Care Provider [phone] Gabrielle Jones MD Unavailable Reason for Referral * Radiology Services (Routine) - Closed Specialty Diagnoses / Procedures Referred By Contac t Referred To Contact Radiology Diagnoses Humeral head fracture, left, closed, initial encounter Procedures XR SHOULDER COMPLETE LEFT Gabrielle Jones MD #[address] [address] Phone: tel: fax: Referral ID Status Reason Start Date Expiration Date Visits Re quested Visits Authorized [id number] Closed 10/26/2024 1 1 Reason for Visit * Radiology Services (Routine) - Closed Specialty Diagnoses / Procedures Referred By Contac t Referred To Contact Radiology Diagnoses Humeral head fracture, left, closed, initial encounter Procedures XR SHOULDER COMPLETE LEFT Gabrielle Jones MD #2 [facility] [address] [place] [address] Phone: tel: fax: Referral ID Status Reason Start Date Expiration Date Visits Re quested Visits Authorized [id number] Closed 10/26/2024 1 1 Encounter Details Date Type Department Care Team (Latest Contact Info) Description 11/12/2024 10:15 AM CDT - 11/12/2024 11:59 PM CDT Hospital Encounter [facility] Diagnostic Radiology 1 [place] [address] Gabrielle Jones MD #[address] [address] Discharge Disposition: Discharged to home or Selfcare [...] documented as of this encounter Care Teams Enrober Relationship Specialty Start Date End Date Joni Ortega MD #2 [facility] [address] [place] [address] PCP - General Family Medicine 12/26/20 Marvin Shaikh MD [address] [place] [address] Consulting Physician Oncology 07/22/17 John Paul Sharif MD [address] [place] [address] Consulting Physician Orthopaedic Surgery 07/22/17 Joni Manning MD 4 [facility] # [address] [place] [address] Consulting Physician Neurology 02/15/18 Mark Bettencourt DO 4 [facility] # [address] [place] [address] Gastroenterology 06/07/18 Gabrielle Jones MD #[address] [address] Consulting Physician Orthopaedic Surgery 09/17/24 documented as of this encounter
--- OUTSIDE RECORDS SUMMARY | 2024-11-14 16:18 | XMS_ITS | Encounter Summary ---
Author Organization [facility] Address [address] [place] [address] Phone Care Team Providers Care Patrol Judge Name Role Phone Marvin Shaikh MD Unavailable [phone] John Paul Sharif MD Unavailable Joni Manning MD Unavailable [phone] Mark Bettencourt DO Unavailable [phone] Joni Ortega MD Primary Care Provider [phone] Gabrielle Jones MD Unavailable Reason for Referral * Radiology Services (Routine) - Closed Specialty Diagnoses / Procedures Referred By Briseida meier Referred To Contact Radiology Diagnoses Chronic cough Weight loss Procedures XR CHEST 2 VIEWS Joni Ortega MD #[address] [address] Phone: tel: fax: Referral ID Status Reason Start Date Expiration Date Visits Re quested Visits Authorized [id number] Closed 11/13/2024 1 1 Reason for Visit * Radiology Services (Routine) - Closed Specialty Diagnoses / Procedures Referred By Briseida meier Referred To Contact Radiology Diagnoses Chronic cough Weight loss Procedures XR CHEST 2 VIEWS Joni Ortega MD #2 [facility] [place] [address] Phone: tel: fax: Referral ID Status Reason Start Date Expiration Date Visits Re quested Visits Authorized [id number] Closed 11/13/2024 1 1 Encounter Details Date Type Department Care Team (Latest Contact Info) Description 11/13/2024 3:59 PM CDT - 11/13/2024 11:59 PM CDT Hospital Encounter [facility] Diagnostic Radiology 1 [place] [address] Joni Ortega MD #[address] [address] Arrived Discharge Disposition: Discharged to home or [...] documented as of this encounter Care Teams Patrol Judge Relationship Specialty Start Date End Date Joni Ortega MD #2 [facility] [address] [place] [address] PCP - General Family Medicine 12/26/20 Marvin Shaikh MD [address] [place] [address] Consulting Physician Oncology 07/22/17 John Paul Sharif MD [address] [place] [address] Consulting Physician Orthopaedic Surgery 07/22/17 Joni Manning MD 4 [facility] # [address] [place] [address] Consulting Physician Neurology 02/15/18 Mark Bettencourt DO [address] [place] [address] # [address] [place] [address] Gastroenterology 06/07/18 Gabrielle Jones MD #2 [facility] [address] [place] [address] Consulting Physician Orthopaedic Surgery 09/17/24 documented as of this encounter
--- OUTSIDE RECORDS SUMMARY | 2024-11-14 16:18 | XMS_ITS | Encounter Summary ---
Author Organization [facility] Address [address] [place] [address] Phone Care Team Providers Care Medical Insurance Clerk Name Role Phone Marvin Shaikh MD Unavailable [phone] John Paul Sharif MD Unavailable [phone] Joni Manning MD Unavailable Mark Bettencourt DO Unavailable [phone] Joni Ortega MD Primary Care Provider [phone] Gabrielle Jones MD Unavailable Reason for Visit * Reason Onset Date Comments Medication Management 11/14/2024 Encounter Details Date Type Department Care Team (Late st Contact Info) Description 11/14/2024 Telephone [facility] [address] [place] [address] Joni Ortega MD #[address] [address] Medication Management Social History Tobacco Use Types [...] 11/14/2024 8:35 AM CDT Patient can not citrus picker her antibiotic because she takes muscle relaxer's pharmacy needs pcp approval to dispense antibiotic. * Telephone Encounter - Tanika Blair RN - 11/14/2024 8:28 AM CDT Situation: Medication management Background: Patient contacting PCP office. Assessment: Calling to request assistance with medication citrus picker. Pharmacy won't release ciprofloxacin to patient [...] documented as of this encounter Care Teams Medical Insurance Clerk Relationship Specialty Start Date End Date Joni Ortega MD #[address] [address] PCP - General Family Medicine 12/26/20 Marvin Shaikh MD [address] [place] [address] Consulting Physician Oncology 07/22/17 John Paul Sharif MD [address] [place] [address] Consulting Physician Orthopaedic Surgery 07/22/17 Joni Manning MD [address] [facility] [address] [place] [address] Consulting Physician Neurology 02/15/18 Mark Bettencourt DO 4 [facility] [address] [place] [address] Gastroenterology 06/07/18 Gabrielle Jones MD #[address] [address] Consulting Physician Orthopaedic Surgery 09/17/24 documented as of this encounter
== END 2024-11-14 16:58 | disposition left against medical advice (07) ==
LOC: ANHED 16:16
PROVIDERS: PCP Internal Medicine
DX: R19.04 Left lower quadrant abdominal swelling, mass and lump (principal)
CPT/HCPCS: 99199

== ENCOUNTER 2025-01-24 08:15 | Emergency (ER) | payer MEDICARE, MEDICAID, SELFPAY ==
--- OUTSIDE RECORDS SUMMARY | 2025-01-24 08:17 | XMS_ITS | Encounter Summary ---
Author Organization [facility] Address [address] [place] [address] Phone Care Team Providers Care Note Keeper Name Role Phone Marvin Shaikh MD Unavailable John Paul Sharif MD Unavailable [phone] Joni Manning MD Unavailable [phone] Mark Bettencourt DO Unavailable [phone] Joni Ortega MD Primary Care Provider Gabrielle Jones MD Unavailable Reason for Visit * Reason Comments Medication Refill Encounter Details Date Type Department Care Team (Late st Contact Info) Description 10/09/2024 Refill [facility] #2 [place] [address] Nawaf Mancilla MD #[address] [address] Medication Refill Social History Tobacco Use Types [...] Care Team (Late st Contact Info) Description 01/30/2025 10:30 AM CDT Office Visit [facility] - General Surgery [facility] #2 [facility] [address] [place] [address] Joni Ortega MD #2 [facility] [address] [place] [address] Toni Wood MD #2 [facility] [address] [place] [address] documented as of this encounter Visit Diagnoses Diagnosis Humeral head fracture, left, closed, initial encounter documented in this encounter Additional Health Concerns Assessment Noted Time PHQ-9 Depression Total Score: 0 09/14/19 25 2:00 PM CDT documented as of this encounter Care Teams Note Keeper Relationship Specialty Start Date End Date Joni Ortega MD #2 [facility] 205 [place] [address] PCP - General Family Medicine 12/26/20 Marvin Shaikh MD [facility] [address] [place] [address] Consulting Physician Oncology 07/22/17 John Paul Sharif MD [address] [place] [address] Consulting Physician Orthopaedic Surgery 07/22/17 Joni Manning MD 4 [facility] # [address] [place] [address] Consulting Physician Neurology 02/15/18 Mark Bettencourt DO 4 [facility] # [address] [place] [address] Gastroenterology 06/07/18 Gabrielle Jones MD #2 [facility] [address] [place] [address] Consulting Physician Orthopaedic Surgery 09/17/24 documented as of this encounter
--- OUTSIDE RECORDS SUMMARY | 2025-01-24 08:18 | XMS_ITS | Encounter Summary ---
Author Organization [facility] Address [address] [place] [address] Phone Care Team Providers Care Cocoa Mill Operator Name Role Phone Marvin Shaikh MD Unavailable John Paul Sharif MD Unavailable [phone] Joni Manning MD Unavailable [phone] Mark Bettencourt DO Unavailable [phone] Joni Ortega MD Primary Care Provider Gabrielle Jones MD Unavailable Reason for Visit * Reason Comments Medication Refill Encounter Details Date Type Department Care Team (Late st Contact Info) Description 05/20/2023 Refill [facility] - [facility] [address] [place] [address] Joni Ortega MD [address] [address] Medication Refill Social History Tobacco Use Types [...] Saadia Lan RN - 05/20/2023 1:34 PM FLEET MAINTENANCE MANAGER Override warning for duplicate therapy Per nursing [...] Dept 12/01/22 Office Visit Heather Sosa APRN, [facility] 08/24/22 Office Visit Heather Sosa APRN, [facility] Showing recent visits within past 365 days and meeting all other requirements Future Appointments No visits were found meeting these conditions. Showing future appointments within next 90 days and meeting all other requirements T MAINTENANCE MANAGER documented in this encounter Plan of Treatment Upcoming Encounters Date Type Department Care Team (Late st Contact Info) Description 01/30/2025 10:30 AM CDT Office Visit [facility] - General [facility] - [place] [address] [facility] [address] [place] [address] Joni Ortega MD #2 [facility] [address] [place] [address] Toni Wodo MD #2 [facility] [address] [place] [address] documented as of this encounter Visit Diagnoses Not on filedocumented in this encounter Additional Health Concerns Assessment Noted Time PHQ-9 Depression Total Score: 14 023 10:00 AM CDT documented as of this encounter Care Teams Cocoa Mill Operator Relationship Specialty Start Date End Date Joni Ortega MD [address] [facility] [address] [place] [address] PCP - General Family Medicine 12/26/20 Marvin Shaikh MD [address] [place] [address] Consulting Physician Oncology 07/22/17 John Paul Sharif MD 1 [facility] [address] [place] [address] Consulting Physician Orthopaedic Surgery 07/22/17 Joni Manning MD 4 [facility] [address] [place] [address] Consulting Physician Neurology 02/15/18 Mark Bettencourt DO [address] [place] [address] [address] [place] [address] Gastroenterology 06/07/18 Gabrielle Jones MD [address] [facility] [address] [place] [address] Consulting Physician Orthopaedic Surgery 09/17/24 documented as of this encounter
--- OUTSIDE RECORDS SUMMARY | 2025-01-24 08:18 | XMS_ITS | Clinical Summary ---
Author Organization [facility] Address [address], [address] [address] Phone Care Team Providers Care Ict Development Manager Name Role Phone Marvin Shaikh MD Unavailable [phone] John Paul Sharif MD Unavailable [phone] Joni Manning MD Unavailable [phone] Mark Bettencourt DO Unavailable [phone] Joni Ortega MD Primary Care Provider [phone] Gabrielle Jones MD Unavailable Allergies Active Allergy [...] as needed for Wheezing. 1 Each 12 11/19/19 23 Active Additional Information Patient not taking.Reported on 12/24/2024 albuterol 108 (90 Base) MCG/ACT Aerosol Solution take 2 Puffs by inhalation every 6 hours as needed for Wheezing. 8.5 g 10/31/19 25 Active tiZANidine (ZANAFLEX) 2 MG TabletIndicat ions:Humeral head fracture, left, closed, initial encounter Take 1 Tablet by mouth 3 times daily. 90 Tablet 11/28/19 25 Active Additional Information Patient not taking.Reported on 12/24/2024 oxyCODONE-Dhaval taminophen (PERCOCET) 10-325 MG Tablet TAKE 1 TO 2 TABLETS BY MOUTH EVERY 4 TO 6 HOURS NEEDED FOR PAIN, MAX DAILY DOSE: 4 12/06/19 25 Active amoxicillin (AMOXIL) 875 MG Tablet Take 875 mg by mouth 2 times daily. Active Multiple Vitamin (MULTIVITAMIN S PO) Take by mouth. Activ e zolpidem (AMBIEN) 10 MG TabletIndicat ions:Primary insomnia Take 1 Tablet by mouth nightly as needed for Sleep. 30 Tablet 01/10/20 25 Active ipratropium-a lbuterol (DUO-NEB) 0.5-2.5 (3) MG/3ML Solution INHALE 3 ML BY NEBULIZATION ROUTE 4 TIMES DAILY 360 mL 01/18/20 25 Active zolpidem (AMBIEN) 10 MG TabletIndicat ions:Primary insomnia Take 1 Tablet by mouth nightly as needed for Sleep. 30 Tablet 12/08/19 25 025 Discontinued(R caner) ipratropium-a lbuterol (DUO-NEB) 0.5-2.5 (3) MG/3ML Solution 3 mL by Nebulization route 4 times daily for 30 days. 360 mL 12/12/19 25 025 Discontinued predniSONE (DELTASONE) 20 MG Tablet Take 1 Tablet by mouth 2 times daily for 5 days. 10 Tablet 01/09/20 25 025 cyclobenzapri ne (FLEXERIL) 5 MG TabletIndicat ions:Muscle Spasm Take 1 Tablet by mouth 3 times daily as needed for Muscle spasms for up to 5 days. Indications: Muscle Spasm 15 Tablet 01/09/20 25 025 cephALEXin (KEFLEX) 500 MG Capsule Take 1 Capsule by mouth 4 times daily for 5 days. 20 Capsule 01/09/20 25 025 Active Problems Problem Noted Date Diagnosed Date [...] Encounters Date Type Department Care Team Description 01/23/2025 Telephone [facility] [place] [address] [place] [address] Joni Ortega MD 01/23/2025 Telephone [facility] [place] [address] [place] [address] Joni Ortega MD Follow-up 01/18/2025 Telephone [facility] [address] [place] [phone] Joni Ortega MD Referral 01/17/2025 [facility] [place] [facility] [place] [address] Joni Ortega MD Medication Refill 01/14/2025 [facility] [address] [place] [phone] Joni Ortega MD Medication Management 01/11/2025 [facility]phone [facility] [address] [place] [phone] Joni Ortega MD Need Order 01/09/2025 Nurse T[facility] [address] [place] [phone] Joni Ortega MD Medication Problem 01/08/2025 10:30 AM CDT - 01/08/2025 1:05 PM CDT Emergency [facility] [address] [place] [address] Gavin Sims PAC Chronic low back pain Discharge Disposition: Discharged to home or Selfcare 01/08/2025 Travel 01/08/2025 [facility] [address] [place] [phone] Joni Ortega MD Back Pain; Need Order 01/07/2025 Refill [facility] [place] [address] [place] [address] Joni Ortega MD Medication Refill 01/03/2025 [facility] [address] [place] [phone] Joni Ortega MD Advice Only; Nasal Congestion 01/02/2025 Telephone [facility] [address] [place] [phone] Joni Ortega MD Referral; Follow-up 01/01/2025 [facility]riage [facility] [address] [place] [phone] Joni Ortega MD Yeast Infection; Follow-up 12/31/2024 Refill [facility] [address] [place] [phone] Joni Ortega MD Medication Refill 12/25/2024 Telephone [facility] [address] [place] [phone] Joni Ortega MD Referral (ortho) 12/24/2024 [facility] [address] [place] [phone] Joni Ortega MD Yeast Infection 12/24/2024 Telephone [facility] [address] [place] [phone] Joni Ortega MD Advice Only 12/20/2024 Telephone [facility] [address] [place] [phone] Joni Ortega MD Post-Hospital Follow-up 12/13/2024 Nurse Triage [facility] [place] [address] [place] [address] Joni Ortega MD Advice Only 12/11/2024 1:15 PM CDT Office Visit [facility] [place] [address] [place] [address] Joni Ortega MD Uncomplicated opioid dependence (HCC) (Primary Dx); Chronic cough; Chronic midline thoracic back pain; Mild intermittent asthma without complication Discharge Disposition: Discharged to home or Selfcare 12/11/2024 Travel 12/10/2024 Telephone [facility] [address] [place] [phone] Joni Ortega MD Advice Only 12/10/2024 [facility]phone [facility] [address] [place] [phone] Joni Ortega MD Care Management; Appointment 2024 [facility]ill [facility] [address] [place] [phone] Joni Ortega MD Medication Refill 11/27/2024 [facility] [place] [phone] Joni Ortega MD Medication Refill 11/27/2024 Telephone [facility] [address] [place] [phone] Joni Ortega MD Discuss Test Result 11/27/2024 Telephone [facility] [address] [place] [phone] Joni Ortega MD Follow-up 11/23/2024 Telephone [facility] [address] [place] [phone] Joni Ortega MD Follow-up; Referral 11/22/2024 Telephone [facility] [address] [place] [phone] Joni Ortega MD Advice Only 11/16/2024 Telephone [facility] [place] [address] [place] [phone] Joni Ortega MD 11/16/2024 Results Follow-Up [facility] [place] [address] [place] [phone] Joni Ortega MD CMP (COMPREHENSIVE METABOLIC PANEL), THYROID STIMULATING HORMONE (TSH), ELECTROPHORESIS W/ TOTAL PROTEIN SERUM, Additional followed-up results: 2 11/15/2024 Telephone [facility] [place] [address] [place] [address] Joni Ortega MD Results 11/15/2024 Telephone [facility] [address] [place] [phone] Joni Ortega MD Results 11/14/2024 Nurse Triage [facility] [place] [address] [place] [address] Joni Ortega MD Abdominal Pain 11/14/2024 [facility]phone [facility] [address] [place] [address] Joni Ortega MD Medication Management 11/13/2024 3:59 PM CDT - 11/13/2024 11:59 PM CDT [facility] [address] [place] [address] Joni Ortega MD Discharge Disposition: Discharged to home or Selfcare 11/13/2024 3:30 PM CDT Office Visit [facility] [place] [address] [place] [address] Joni Ortega MD Dysuria (Primary Dx); Chronic cough; Weight loss; Chronic fatigue; Primary insomnia Discharge Disposition: Discharged to home or Selfcare 11/12/2024 11:15 AM CDT Office Visit [facility] [address] [place] [address] Gabrielle Jones MD Primary osteoarthritis of left shoulder (Primary Dx); Nondisplaced fracture of lesser tuberosity of left humerus, subsequent encounter for fracture with routine healing Discharge Disposition: Discharged to home or Selfcare 11/12/2024 10:15 AM CDT - 11/12/2024 11:59 PM CDT [facility] [address] [place] [address] Gabrielle Jones MD Discharge Disposition: Discharged to home or Selfcare 11/12/2024 Travel 11/08/2024 Telephone [facility] [address] [place] [phone] Joni Ortega MD Results 11/08/2024 Telephone [facility] [place] [facility] [place] [phone] Joni Ortega MD Results 11/07/2024 Telephone [facility] [place] [place] [phone] Joni Ortega MD 11/06/2024 Nurse [facility] [address] [place] [phone] Joni Ortega MD Insomnia 11/06/2024 [facility]ill [facility] [place] [phone] Joni Ortega MD Medication Refill 11/05/2024 Nurse [facility] [address] [place] [phone] Joni Ortega MD Urinary Problem 10/29/2024 [facility] [place] [phone] Joni Ortega MD Medication Refill 10/29/2024 Nurse Triage [facility] [address] [place] [phone] Joni Ortega MD Anxiety 10/28/2024 Telephone [facility] [place] [phone] Joni Ortega MD Need Order 10/26/2024 [facility]phone [facility] [address] [place] [phone] Joni Ortega MD Need Order 10/26/2024 [facility] [place] [address] [phone] Gabrielle Jones MD 10/24/2024 Refill [facility] [address] [place] [phone] Joni Ortega MD Medication Refill 10/24/2024 Telephone [facility] [address] [place] [phone] Joni Ortega MD Advice Only 10/24/2024 Telephone [facility] [place] [address] [phone] Joni Ortega MD Medication Management from Last 3 Months Immunizations Immunization Administration [...] Sign Reading Time Taken Comments Blood Pressure 146/74 01/08/2025 10:33 AM CDT Pulse 94 01/08/2025 10:33 AM CDT Temperature 36.2 C (97.1 F) 01/08/2025 10:33 AM CDT Respiratory Rate 16 01/08/2025 10:33 AM CDT Oxygen Saturation 96% 01/08/2025 10:33 AM CDT Inhaled Oxygen Concentration - - Weight 72.2 kg (159 lb 2.8 oz) 01/08/2025 10:33 AM CDT Height 162.6 cm (5' 4) 01/08/2025 10:33 AM CDT Body Mass Index 27.32 01/08/2025 10:33 AM CDT Plan of Treatment Upcoming Encounters Date Type Department Care Team (Late st Contact Info) Description 01/30/2025 10:30 AM CDT [facility] Visit [facility] - [place] [address] [facility] [address] [place] [phone] Joni Ortega MD [address] [facility] [address] [place] [address] Toni Wood MD [facility] [address] [place] [address] Health Maintenance Due Date Last Done Comments DEXA Bone Density 1948 Diabetes: Eye Exam 1948 Diabetes: Foot Exam 1948 SARS-COV-2 Immunization (#1) 1953 Pneumococcal Immunization (50+ years) (1 of 2 - PCV) 12/08/1967 Zoster Immunization (1 of 2) 12/08/1967 Discussion re Stopping Mammograms 12/08/2023 Respiratory Syncytial Virus (RSV) Immunization (Adult) (1 - 1-dose 75+ series) 12/08/2023 Influenza Immunization (#1) 2025 Td Immunization Every 10 Years (Adults With 1 Tdap) 03/30/2025 03/30/2015, 06/27/2010 Mammogram 05/07/2025 11/29/2017 Postponed from 11/29/2018 (Patient Temporarily Declines) Diabetes: Hemoglobin A1c 06/16/2025 12/15/2024, 03/ Diabetes: Nephropathy Screening 11/13/2025 11/13/2024, 09/13/2024, 12/01/2022, Additional history exists Colonoscopy Discontinued 03/22/2017, 06/27/2003 Colorectal Cancer Screening Discontinued Immunochemical Fecal Occult Blood Discontinued 10/04/2018, 07/24/2015 Hepatitis C Virus (HCV) Screening Completed 02/23/2022 Cologuard Discontinued Hepatitis B Immunization Aged Out No longer eligible based on patient's age to complete this topic Human Papillomavirus (HPV) Immunization Aged Out No longer eligible based on patient's age to complete this topic Meningococcal Immunization (ACWY) Aged Out No longer eligible based on patient's age to complete this topic Rotavirus Immunization Aged Out No lo nger eligible based on patient's age to complete this topic Procedures Procedure Name Priority Date/Time Associated Diagnosis Comments URINALYSIS REFLEX IF INDICATED BY ABNORMAL RESULTS STAT 01/08/2025 11:[address] LUMBAR SPINE WO CONTRAST Stat with Interpretation 01/08/2025 11:13 AM CDT XR CHEST 2 VIEWS Routine 11/13/2024 4:13 PM CDT Chronic cough Weight loss CBC WITH AUTO DIFFERENTIAL Today 11/13/2024 3:59 PM CDT Chronic cough Weight loss ELECTROPHORESIS W/ TOTAL PROTEIN SERUM Routine 11/13/2024 3:59 PM CDT Chronic cough Weight loss Chronic fatigue THYROID STIMULATING HORMONE (TSH) Today 11/13/2024 3:59 PM CDT Dysuria Chronic cough Weight loss Chronic fatigue CMP (COMPREHENSIVE METABOLIC PANEL) Today 11/13/2024 3:59 PM CDT Chronic cough Weight loss COMPLETE BLOOD COUNT (CBC) WITH DIFF Today 11/13/2024 3:59 PM CDT Chronic cough Weight loss CULTURE, URINE Routine 11/13/2024 3:59 PM CDT Dysuria XR SHOULDER COMPLETE LEFT Routine 11/12/2024 10:32 AM CDT Humeral head fracture, left, closed, initial encounter URINALYSIS REFLEX IF INDICATED BY ABNORMAL RESULTS Routine 11/08/2024 11:12 AM CDT Dysuria CULTURE, URINE Routine 11/08/2024 11:12 AM CDT Dysuria HEMOGLOBIN A1C W/ ESTIMATED GLUCOSE Routine 09/13/2024 3:06 PM CDT Diet-controlled diabetes mellitus (HCC) HEPATITIS PANEL ACUTE (AHP) Routine 02/23/2022 2:36 PM CDT Sweating profusely POCT STOOL, OCCULT BLOOD, DIAGNOSTIC Routine 10/04/2018 8:50 AM CDT Diarrhea in adult patient Bright red stool LIZZETH DIAG BILATERAL DIGITAL W CAD W ARTIS Routine 11/29/2017 10:24 AM CDT Bilateral nipple discharge Breast pain, left from Last 3 Months or Most Recently Relevant to Health Maintenance Results * (ABNORMAL) Urinalysis w/ Reflex (01/08/2025 11:50 AM CDT) Only the most recent of2 resultswithin the time period is included. SPECIFIC GRAVITY 1.015 1.003 - 1.030 01/08/2025 12:54 PM CDT [facility] URINE PH 6.0 5.0 - 9.0 01/08/2025 12:54 PM CDT [facility] WBC ESTERASE 100 /uL(A) Negative 01/08/2025 12:54 PM CDT [facility] NITRITE Negative Negative 01/08/2025 12:54 PM CDT [facility] PROTEIN, RANDOM URINE 30 mg/dL(A) Negative 01/08/2025 12:54 PM CDT [facility] URINE GLUCOSE, QUAL Negative Negative 01/08/2025 12:54 PM CDT [facility] URINE KETONES Negative Negative 01/08/2025 12:54 PM CDT [facility] UROBILINOGEN Normal Normal mg/dL 01/08/2025 12:54 PM CDT [facility] URINE BLOOD 25 /uL(A) Negative steve/ul 01/08/2025 12:54 PM CDT [facility] URINALYSIS COLOR Yellow 01/09/20 12:54 PM CDT [facility] URINALYSIS CLARITY Slightly Cloudy 01/08/2025 12:54 PM CDT [facility] WBC (Urine) 0-5 Negative, 0-5 /hpf 01/08/2025 12:54 PM CDT [facility] URINE RBC'S 0-2 Negative, 0-2 /hpf 01/08/2025 12:54 PM CDT [facility] EPITHELIAL CELLS Large amount squamous /lpf 01/08/2025 12:54 PM CDT [facility] BACTERIA, URINE Moderate(A) Negative /hpf 01/08/2025 12:54 PM CDT [facility] Urine URINE SPECIMEN / Unknown Non-Phlebotomy Collection / Unknown 01/08/2025 11:50 AM CDT 01/08/2025 12:12 PM CDT Gavin Sims PAC URINE ORDERABLES Fin al Result [facility] [place] [address] * CT LUMBAR SPINE WO CONTRAST (01/08/2025 11:13 AM CDT) Anatomical Region Laterality Modality Spine N/A Computed Tomogra phy 01/08/2025 11:3 1 AM CDT Impressions 01/08/2025 11:34 AM CDT IMPRESSION: 1. Mild osteopenia with minimal to mild compression deformity involving T12 and mild compression deformity involving L2, which are technically age indeterminate, however favored to be likely chronic. The necessity of further evaluation with MRI can be determined clinically. 2. Multilevel lumbar spondylosis as described above. 3. Circumferential mucosal thickening of the urinary bladder, which may be related to underdistention versus cystitis. Clinical correlation with urinary analysis is recommended as clinically indicated. 4. Scattered colonic diverticula without definite evidence of diverticulitis involving the visualized colon. 5. Punctate bilateral nonobstructing renal calculi. Narrative 01/08/2025 11:34 AM CDT EXAM DESCRIPTION: CT LUMBAR SPINE WO CONTRAST REASON FOR STUDY: Acute on chronic low back/tailbone pain for 5 months after a fall in July. Hx of bone spurs and chronic pain. TECHNIQUE: Axial images acquired through the lumbar spine without intravenous contrast. Reconstructed coronal and sagittal MPR images reviewed. All images stored on PACS. Automated exposure control was used as a dose optimization technique for this examination. COMPARISON: 04/17/2019 FINDINGS: There is mild osteopenia. There is a minimal to mild compression deformity involving T12 and mild compression deformity involving L2, which are technically age indeterminate, however favored to be likely chronic. There is a mild levoscoliotic curvature of the thoracolumbar spine centered at L3. There are multilevel degenerative changes of the lumbar spine with disc space narrowing and endplate osteophytosis. There are degenerative changes bilateral sacroiliac joints with joint space narrowing and mild sclerosis. There are atherosclerotic changes of the aorta and vasculature. There are few punctate nonobstructing calculi in the bilateral kidneys with the largest measuring 0.2 cm on the right and 0.2 cm on the left. There are scattered colonic diverticula noted without definite evidence of diverticulitis involving the visualized colon. There is circumferential mucosal thickening of the urinary bladder. T11-T12: There is no significant disc bulge or spinal canal stenosis. There is mild ligamentum flavum hypertrophy. There is facet arthropathy with [id number] right neural foraminal narrowing and moderate to severe left neural foraminal narrowing. T12-L1: There is no significant disc bulge or spinal canal stenosis. There is facet arthropathy with moderate bilateral neural foraminal narrowing. L1-L2: There is a circumferential disc bulge with mild ligamentum flavum hypertrophy causing mass effect on thecal sac with minimal spinal canal stenosis. There is facet arthropathy with severe right neural foraminal narrowing and moderate left neural foraminal narrowing. L2-L3: There is small circumferential disc bulge with ligamentum flavum hypertrophy causing mass effect on thecal sac without significant spinal canal stenosis. There is facet arthropathy with ulig-[id number] bilateral neural foraminal narrowing. L3-L4: There is a circumferential disc bulge with shortened pedicles and ligamentum flavum hypertrophy causing mass effect on thecal sac with moderate spinal canal stenosis. There is facet arthropathy with moderate to severe right neural foraminal narrowing and moderate left neural foraminal narrowing. L4-L5: There is circumferential disc bulge with shortened pedicles and ligamentum flavum hypertrophy causing mass effect on thecal sac with severe spinal canal stenosis. There is facet arthropathy with moderate to severe right neural foraminal narrowing and severe left neural foraminal narrowing. L5-S1: There is circumferential disc bulge with shortened pedicles and ligamentum flavum hypertrophy causing mass effect on thecal sac with mild spinal canal stenosis. There is facet arthropathy with severe bilateral neural foraminal narrowing. THIS IS AN ELECTRONICALLY VERIFIED FINAL REPORT 01/08/2025 11:31 AM - Electronically signed by Daniel Bowen D.O. PS: PS Report ID: [id number] Reading Location: [id number] Procedure Note Daniel Bowen DO - 01/08/2025 EXAM DESCRIPTION: CT LUMBAR SPINE WO CONTRAST REASON FOR STUDY: Acute on chronic low back/tailbone pain for 5 months after a fall in July. Hx of bone spurs and chronic pain. TECHNIQUE: Axial images acquired through the lumbar spine without intravenous contrast. Reconstructed coronal and sagittal MPR images reviewed. All images stored on PACS. Automated exposure control was used as a dose optimization technique for this examination. COMPARISON: 04/17/2019 FINDINGS: There is mild osteopenia. There is a minimal to mild compression deformity involving T12 and mild compression deformity involving L2, which are technically age indeterminate, however favored to be likely chronic. There is a mild levoscoliotic curvature of the thoracolumbar spine centered at L3. There are multilevel degenerative changes of the lumbar spine with disc space narrowing and endplate osteophytosis. There are degenerative changes bilateral sacroiliac joints with joint space narrowing and mild sclerosis. There are atherosclerotic changes of the aorta and vasculature. There are few punctate nonobstructing calculi in the bilateral kidneys with the largest measuring 0.2 cm on the right and 0.2 cm on the left. There are scattered colonic diverticula noted without definite evidence of diverticulitis involving the visualized colon. There is circumferential mucosal thickening of the urinary bladder. T11-T12: There is no significant disc bulge or spinal canal stenosis. There is mild ligamentum flavum hypertrophy. There is facet arthropathy with udqs-[id number]-hkuxhsuz right neural foraminal narrowing and moderate to severe left neural foraminal narrowing. T12-L1: There is no significant disc bulge or spinal canal stenosis. There is facet arthropathy with moderate bilateral neural foraminal narrowing. L1-L2: There is a circumferential disc bulge with mild ligamentum flavum hypertrophy causing mass effect on thecal sac with minimal spinal canal stenosis. There is facet arthropathy with severe right neural foraminal narrowing and moderate left neural foraminal narrowing. L2-L3: There is small circumferential disc bulge with ligamentum flavum hypertrophy causing mass effect on thecal sac without significant spinal canal stenosis. There is facet arthropathy with fllx-bh-yyajaryy bilateral neural foraminal narrowing. L3-L4: There is a circumferential disc bulge with shortened pedicles and ligamentum flavum hypertrophy causing mass effect on thecal sac with moderate spinal canal stenosis. There is facet arthropathy with moderate to severe right neural foraminal narrowing and moderate left neural foraminal narrowing. L4-L5: There is circumferential disc bulge with shortened pedicles and ligamentum flavum hypertrophy causing mass effect on thecal sac with severe spinal canal stenosis. There is facet arthropathy with moderate to severe right neural foraminal narrowing and severe left neural foraminal narrowing. L5-S1: There is circumferential disc bulge with shortened pedicles and ligamentum flavum hypertrophy causing mass effect on thecal sac with mild spinal canal stenosis. There is facet arthropathy with severe bilateral neural foraminal narrowing. THIS IS AN ELECTRONICALLY VERIFIED FINAL REPORT 01/08/2025 11:31 AM - Electronically signed by Daniel Bowen D.O. PS: MAGDI Report ID: [id number] Reading Location: [id number] IMPRESSION: 1. Mild osteopenia with minimal to mild compression deformity involving T12 and mild compression deformity involving L2, which are technically age indeterminate, however favored to be likely chronic. The necessity of further evaluation with MRI can be determined clinically. 2. Multilevel lumbar spondylosis as described above. 3. Circumferential mucosal thickening of the urinary bladder, which may be related to underdistention versus cystitis. Clinical correlation with urinary analysis is recommended as clinically indicated. 4. Scattered colonic diverticula without definite evidence of diverticulitis involving the visualized colon. 5. Punctate bilateral nonobstructing renal calculi. Gavin Sims PAC IMG CT ORDERABLES Fi nal Result * XR CHEST 2 VIEWS (11/13/2024 4:13 PM CDT) Anatomical Region Laterality Modality Chest N/A Digital Radiogra phy 11/14/2024 9:30 PM CDT Impressions 11/14/2024 9:32 PM CDT IMPRESSION: No acute cardiopulmonary abnormality. Narrative 11/14/2024 9:32 PM CDT EXAM DESCRIPTION: XR CHEST 2 VIEWS REASON FOR STUDY: pt c/o chronic cough and unexplained weight loss. hx of breast cancer and pulmonary emphysema. TECHNIQUE: 2 radiographic view(s) of the chest. COMPARISON: 03/11/2019 FINDINGS: LUNGS: No focal opacity, pleural effusion, or pneumothorax. HEART/MEDIASTINUM: Cardiac silhouette normal in size. Mediastinal and hilar contours appear normal. LINES/TUBES: None. BONES: No acute osseous abnormality. THIS IS AN ELECTRONICALLY VERIFIED FINAL REPORT 11/14/2024 9:30 PM - Electronically signed by Елена Fernandez M.D. AB: AB Report ID: [id number] Reading Location: [id number] Procedure Note Елена Fernandez MD - 11/14/2024 EXAM DESCRIPTION: XR CHEST 2 VIEWS REASON FOR STUDY: pt c/o chronic cough and unexplained weight loss. hx of breast cancer and pulmonary emphysema. TECHNIQUE: 2 radiographic view(s) of the chest. COMPARISON: 03/11/2019 FINDINGS: LUNGS: No focal opacity, pleural effusion, or pneumothorax. HEART/MEDIASTINUM: Cardiac silhouette normal in size. Mediastinal and hilar contours appear normal. LINES/TUBES: None. BONES: No acute osseous abnormality. THIS IS AN ELECTRONICALLY VERIFIED FINAL REPORT 11/14/2024 9:30 PM - Electronically signed by Елена Fernandez M.D. AB: AB Report ID: [id number] Reading Location: [id number] IMPRESSION: No acute cardiopulmonary abnormality. Joni Ortega MD [facility] DIAGNOSTIC ORDERABLES Fin al Result * CBC WITH AUTO DIFFERENTIAL (11/13/2024 3:59 PM CDT) WBC 7.76 4.00 - 12.00 10(3)/mcL 11/13/2024 4:18 PM CDT [facility] RBC 4.96 3.80 - 5.30 10(6)/mcL 11/13/2024 4:18 PM CDT [facility] HEMOGLOBIN (HGB) 15.1 12.0 - 15.8 g/dL 11/13/2024 4:18 PM CDT [facility] HEMATOCRIT (HCT) 45.6 36.0 - 47.0 % 11/13/2024 4:18 PM CDT [facility] MCV 91.9 82.0 - 96.0 fL 11/13/2024 4:18 PM CDT [facility] MCH 30.4 26.0 - 34.0 pg 11/13/2024 4:18 PM CDT [facility] MCHC 33.1 31.0 - 36.0 g/dL 11/13/2024 4:18 PM CDT [facility] PLATELET COUNT 279 140 - 440 10(3)/mcL 11/13/2024 4:18 PM CDT [facility] RDW 13.4 11.8 - 15.5 % 11/13/2024 4:18 PM CDT [facility] MPV 10.1 9.7 - 12.4 fL 11/13/2024 4:18 PM CDT [facility] NEUTROPHILS 58.4 47.0 - 73.0 % 11/13/2024 4:18 PM CDT [facility] LYMPHOCYTES 29.9 18.0 - 42.0 % 11/13/2024 4:18 PM CDT [facility] MONOCYTES 8.0 4.0 - 12.0 % 11/13/2024 4:18 PM CDT [facility] EOSINOPHILS 2.7 0.0 - 5.0 % 11/13/2024 4:18 PM CDT [facility] BASOPHILS 1.0 0.0 - 1.0 % 11/13/2024 4:18 PM CDT [facility] ABSOLUTE NEUTROPHILS 4.53 1.60 - 7.70 10(3)/mcL 11/13/2024 4:18 PM CDT [facility] ABSOLUTE LYMPHOCYTES 2.32 1.30 - 3.20 10(3)/[facility] 11/13/2024 4:18 PM CDT [facility] ABSOLUTE MONOCYTES 0.62 0.20 - 1.00 10(3)/[facility] 11/13/2024 4:18 PM CDT [facility] ABSOLUTE EOSINOPHIL 0.21 0.00 - 0.40 10(3)/[facility] 11/13/2024 4:18 PM CDT [facility] ABSOLUTE BASOPHILS 0.08 0.00 - 0.10 10(3)/[facility] 11/13/2024 4:18 PM CDT [facility] NRBC PER 100 WBC 0 11/14/19 4:18 PM CDT [facility] Blood Venipuncture / Unknown 11/13/2024 3:59 PM CDT 11/13/2024 4:15 PM CDT Joni Ortega MD HEMATOLOGY ORDERABLES Final R esult [facility] [address] [place] [address] * THYROID STIMULATING HORMONE (TSH) (11/13/2024 3:59 PM CDT) TSH 0.512 0.300 - 5.000 mIU/L 11/13/2024 4:53 PM CDT [facility] Blood Venipuncture / Unknown 11/13/2024 3:59 PM CDT 11/13/2024 4:15 PM CDT us Joni Ortega MD CHEMISTRY ORDERABLES Final Re sult [facility] [address] [place] [address] * (ABNORMAL) ELECTROPHORESIS W/ TOTAL PROTEIN SERUM (11/13/2024 3:59 PM CDT) TOTAL PROTEIN 6.8 6.0 - 8.0 g/dL 11/15/2024 11:27 AM CDT [facility] % ALBUMIN 57.2 55.8 - 66.7 % 11/15/2024 11:27 AM CDT [facility] ALBUMIN SERUM 3.9 2.5 - 5.4 g/dL 11/15/2024 11:27 AM CDT [facility] % ALPHA 1 GLOBULIN 4.3 2.9 - 4.9 % 11/15/2024 11:27 AM CDT [facility] ALPHA 1 0.3 0.2 - 0.4 g/dL 11/15/2024 11:27 AM CDT [facility] % ALPHA 2 GLOBULIN 13.0(H) 7.1 - 11.8 % 11/15/2024 11:27 AM CDT [facility] ALPHA 2 0.9 0.5 - 1.0 g/dL 11/15/2024 11:27 AM CDT [facility] % BETA 14.3(H) 8.4 - 13.1 % 11/15/2024 11:27 AM CDT [facility] BETA-GLOBULIN 1.0 0.5 - 1.1 g/dL 11/15/2024 11:27 AM CDT [facility] % GAMMA GLOBULIN 11.2 11.1 - 18.8 % 11/15/2024 11:27 AM CDT [facility] GAMMA 0.8 0.7 - 1.5 g/dL 11/15/2024 11:27 AM CDT [facility] SPE INTERPRETATION No abnormal protein band is detected by serum protein electrophore sis. Reviewed by Stefani Perez, Ph.D. [facility] 11/15/2024 11:27 AM CDT [facility] A/G RATIO, SERUM 1.3 11/16/19 11:27 AM CDT [facility] Blood Venipuncture / Unknown 11/13/2024 3:59 PM CDT 11/13/2024 4:14 PM CDT Narrative [facility] - 11/15/2024 11:27 AM CDT Reviewed by Abel Robin M.D. Joni Ortega MD CHEMISTRY ORDERABLES Final Re sult Performing Organization Address City/[facility]/ZIP Co de Phone Number [facility] [address] [place] [address], [place] * CULTURE, URINE (11/13/2024 3:59 PM CDT) Only the most recent of2 resultswithin the time period is included. CULTURE RESULTS Mixed Growth of One or More Distal Urethral Contaminants 11/14/2024 10:11 PM CDT [facility] Culture URINE SPECIMEN OBTAINED BY CLEAN CATCH PROCEDURE / Unknown Non-Phlebotomy Collection / Unknown 11/13/2024 3:59 PM CDT 11/13/2024 4:15 PM CDT Joni Ortega MD MICROBIOLOGY - GENERAL ORDERA BLES Final Result Performing Organization Address City/[facility]/ZIP Co de Phone Number [facility] [address] [place] [address], [place] * (ABNORMAL) CMP (COMPREHENSIVE METABOLIC PANEL) (11/13/2024 3:59 PM CDT) SODIUM 136 136 - 145 mmol/L 11/13/2024 4:35 PM CDT [facility] POTASSIUM 4.1 3.5 - 5.1 mmol/L 11/13/2024 4:35 PM CDT [facility] CHLORIDE 103 98 - 107 mmol/L 11/13/2024 4:35 PM CDT [facility] CO2, VENOUS 24 22 - 30 mmol/L 11/13/2024 4:35 PM CDT [facility] ANION GAP 13.1 <18.0 mmol/L 11/13/2024 4:35 PM CDT [facility] GLUCOSE 121(H) 70 - 99 mg/dL 11/13/2024 4:35 PM CDT [facility] BUN 9(L) 10 - 20 mg/dL 11/13/2024 4:35 PM CDT [facility] CREATININE, BLOOD 1.00 0.60 - 1.00 mg/dL 11/13/2024 4:35 PM CDT [facility] BUN/CREATININE RATIO 9(L) 12 - 20 ratio 11/13/2024 4:35 PM CDT [facility] TOTAL PROTEIN 7.3 6.0 - 8.0 g/dL 11/13/2024 4:35 PM CDT [facility] ALBUMIN 4.6 3.5 - 5.0 g/dL 11/13/2024 4:35 PM CDT [facility] A/G RATIO 1.7 1.0 - 2.2 11/13/2024 4:35 PM CDT [facility] CALCIUM 9.9 8.7 - 10.5 mg/dL 11/13/2024 4:35 PM CDT [facility] T BILI 0.3 0.2 - 1.2 mg/dL 11/13/2024 4:35 PM CDT [facility] SGOT (AST) 22 <43 U/L 11/13/2024 4:35 PM CDT [facility] SGPT (ALT) 24 <56 U/L 11/13/2024 4:35 PM CDT [facility] ALKALINE PHOSPHATASE 99 40 - 150 U/L 11/13/2024 4:35 PM CDT [facility] IS THE PATIENT REQUIRED TO BE FASTING? No 11/13/2024 4:35 PM CDT [facility] GFR, ESTIMATED 59(L) >=60 11/13/2024 4:35 PM CDT [facility] Comment: Creatinine Clearance is the preferred criteria for selecting drug dose adjustments in renally impaired patients. The GFR is provided as additional pertinent clinical information. GFR is reported in mL/min/1.73 sq m. Calculation based on the Chronic Kidney Disease Epidemiology Collaboration (CKD- EPI) equation refit without adjustment for race. GFR, EST. >60 >=60 025 4:35 PM CDT [facility] GFR, EST. NONAFRICAN 54(L) >=60 11/13/2024 4:35 PM CDT [facility] Blood Venipuncture / Unknown 11/13/2024 3:59 PM CDT 11/13/2024 4:15 PM CDT us Joni Ortega MD CHEMISTRY ORDERABLES Final Re sult [facility] [address] [place] [address] * XR SHOULDER COMPLETE LEFT (11/12/2024 10:32 AM CDT) Anatomical Region Laterality Modality UPPER EXTREMITY, shoulder Left Digita l Radiography 11/14/2024 9:29 PM CDT Impressions 11/14/2024 9:31 PM CDT IMPRESSION: Degenerative changes without definite evidence of acute fracture. Narrative 11/14/2024 9:31 PM CDT EXAM DESCRIPTION: XR SHOULDER COMPLETE LEFT REASON FOR STUDY: Humeral head fracture, left, on jul TECHNIQUE: 3 view(s) of the left shoulder COMPARISON: 09/17/2024 FINDINGS: There is no definite evidence of acute fracture. There is glenohumeral joint space narrowing and osteophyte production identified. 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 Visualized ribs are intact. THIS IS AN ELECTRONICALLY VERIFIED FINAL REPORT 11/14/2024 9:29 PM - Electronically signed by Елена Fernandez M.D. AB: Report ID: [id number] Reading Location: [id number] Procedure Note Елена Fernandez MD - 11/14/2024 EXAM DESCRIPTION: XR SHOULDER COMPLETE LEFT REASON FOR STUDY: Humeral head fracture, left, on jul TECHNIQUE: 3 view(s) of the left shoulder COMPARISON: 09/17/2024 FINDINGS: There is no definite evidence of acute fracture. There is glenohumeral joint space narrowing and osteophyte production identified. 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 Visualized ribs are intact. THIS IS AN ELECTRONICALLY VERIFIED FINAL REPORT 11/14/2024 9:29 PM - Electronically signed by Елена Fernandez M.D. AB: Report ID: [id number] Reading Location: [id number] IMPRESSION: Degenerative changes without definite evidence of acute fracture. Gabrielle Jones MD IMG DIAGNOSTIC ORDERABLES Final Result * (ABNORMAL) HEMOGLOBIN A1C W/ ESTIMATED GLUCOSE (09/13/2024 3:06 PM CDT) HGB-A1C 6.4(H) 4.0 - 6.0 % 09/13/2024 4:03 PM CDT [facility] Est Average Glucose 137.0 mg/dL 09/13/2024 4:03 PM CDT [facility] Blood Venipuncture / Unknown 09/13/2024 3:06 PM CDT 09/13/2024 3:46 PM CDT Narrative [facility] - 09/13/2024 4:03 PM CDT HEMOGLOBIN A1C: DIABETIC PATIENTS: WELL-CONTROLLED: 6.2 - 7.0 INTERMEDIATE WELL-CONTROLLED: 7.0 - 9.0 POORLY-CONTROLLED: >9.0 Specimens containing greater than 5% of Hemoglobin F may result in lower than expected % HbA1C results. Nawaf Mancilla MD CHEMISTRY ORDERABLES Amalia l Result [facility] [address] [place] [address] * HEPATITIS PANEL ACUTE (AHP) (02/23/2022 2:36 PM CDT) HEPATITIS A IGM ANTIBODY NON DETECTED NON DETECTED [facility] [id number] B 02/23/2022 10:26 PM CDT [facility] Comment: IGM Antibodies to HAV not detected. Does not exclude early acute or recovered HAV infection. HEP B CORE AB (IGM) NON DETECTED NON DETECTED [place] [id number] B 02/23/2022 10:26 PM CDT [facility] Comment:IGM anti-HBC not det ected. Does not exclude the possibility of exposure to or infection with HBV. HEPATITIS B SURFACE ANTIGEN NON DETECTED NON DETECTED [address] 02/23/2022 10:26 PM CDT [facility] Comment:A nonreactive test r esult does not exclude the possibility of exposure to or infection with Hepatitis B virus. A nonreactive test result in individuals with prior exposure to hepatitis B may be due to antigen levels below the detection limit of this assay or lack of antigen reactivity to the antibodies in this assay. hepatitis C antibody 0.08 <1 S/CO [facility] [id number] B 02/23/2022 10:26 PM CDT [facility] Comment: Signal/Cutoff ratio < 0.79 is Nondetected Signal/Cutoff ratio 0.80-0.99 is Grayzone Signal/Cutoff ratio > 0.99 is Detected Supplemental assays are recommended if signal/cutoff ratio is >/=1.00. Signal/cutoff ratio result >/= 5.00 is 97% predictive of positivity for recombinant immunoblot assay (RIBA) and will be reported to the [place] Department of Public [facility] as required. Blood Venipuncture / Unknown 02/23/2022 2:36 PM CDT 02/23/2022 2:36 PM CDT us Joni Ortega MD HEMATOLOGY ORDERABLES Final R esult [facility] [address] [place] [address], [place] * POCT STOOL, OCCULT BLOOD, DIAGNOSTIC (10/04/2018 8:50 AM CDT) OCCULT BLOOD, STOOL Negative Negative, Other POC HEMOCULT CONTROL Ppap Coordinator Pass 10/04/2018 8:50 AM CDT us Chantal Rowellnikki ARTIST'S MANAGER, AUDIO VISUAL PRODUCTION SPECIALIST POINT OF CARE TESTIN G (MANUAL) Final [...] to exams dated: 12/25/2008, 05/29/2013, and 05/01/2008 [facility]. BREAST TISSUE: The tissue of both [...] signed by: Chrissy Carter M.D. pw/:11/29/2017 10:52:53 Development And Planning Engineer: Padma Rodriguez(R), [facility] Reading location: [facility] BI-RADS: 0 Additional Imaging Evaluation Needed Procedure [...] to exams dated: 12/25/2008, 05/29/2013, and 05/01/2008 [facility]. BREAST TISSUE: The tissue of both [...] signed by: Chrissy Carter M.D. pw/:11/29/2017 10:52:53 Development And Planning Engineer: Padma Rodriguez(R), [facility] Reading location: [facility] BI-RADS: 0 Additional Imaging Evaluation Needed us Hill Montano MD IMG MAMMO ORDERABLES Amalia l Result from Last 3 Months or Most Recently Relevant to Health Maintenance Insurance MEDICAID [place] MEDICARE C [facility] Advance Directives * Full Code (Latest Code Status on File) Date Activated Date Inactivated Comments 07/04/2016 4:32 PM 07/04/2016 11:21 PM CPR-Full Moriah tment: FULL ARREST: Attempt Resuscitation/CPR wit intubation and mechanical ventilation. PRE-ARREST: Use entire range of life support measures to stabilize the patient. Care Teams Ict Development Manager Relationship Specialty Start Date End Date Joni Ortega MD [address] [facility] [address] [place] [address] PCP - General Family Medicine 12/26/20 Marvin Shaikh MD [address] [place] [address] Consulting Physician Oncology 07/22/17 John Paul Sharif MD [address] [place] [address] Consulting Physician Orthopaedic Surgery 07/22/17 Joni Manning MD [address] [facility] [address] [place] [address] Consulting Physician Neurology 02/15/18 Mark Bettencourt DO 4 [facility] [address] [place] [address] Gastroenterology 06/07/18 Gabrielle Jones MD #2 [facility] [address] [place] [address] Consulting Physician Orthopaedic Surgery 09/17/24
--- OUTSIDE RECORDS SUMMARY | 2025-01-24 08:18 | XMS_ITS ---
Author Organization [facility] Address [address] [place] [address] Care Team Providers Care Drop Wire Hanger Name Role Phone Vel Parra Primary Care Provider REASON FOR VISIT Detox Encounters Encounter Location Date Provider Diagnosis [address] [place] [address] 12/18/2024 Vel Parra Plan Of Treatment No Information Progress Notes * Katey GOMESDOB: [birth year] (74 yo F)Acc No.[id number]:12/18/2024 UNLOCKED PROGRESS NOTE Patient: Katey MTZ Provider: Lily Prara, MSN, LIME PULLER, ONLINE ADVERTISING DIRECTOR-C :1950 A ge:74 Y S ex:Female Date:12/18/2024 Address:[address], [facility] Subjective: * Chief Complaints: * 1 . Detox. * Medical History: Objective: * Vitals: Assessment: Plan: * Treatment: * * Electronic signature of Cheryle Parra APRN, [id number] on 01/24/2025 at 08:17 AM CDT Sign off status: Pending * Provider: Lily Parra, MSN, LIME PULLER, ONLINE ADVERTISING DIRECTOR-C Date: 0 12/18/2024 Generated for Printi ng/Faxing/eTransmitting on: 0 01/24/2025 08:17 AM CDT
--- OUTSIDE RECORDS SUMMARY | 2025-01-24 08:18 | XMS_ITS | Encounter Summary ---
Author Organization [facility] Address [address] [place] [address] Phone Care Team Providers Care Riveting Machine Operator Tape Control Name Role Phone Marvin Shaikh MD Unavailable [phone] John Paul Sharif MD Unavailable [phone] Joni Manning MD Unavailable [phone] Joni Ortega MD Primary Care Provider [phone] Mark Bettencourt DO Unavailable [phone] Garrison Martinez MD Primary Care Provider [phone] Joni Ortega MD Primary Care Provider [phone] Gabrielle Jones MD Unavailable Reason for Visit * Reason Onset Date Comments ED Follow-up 11/03/2020 [facility] for right knee pain Results 11/03/2020 knee xray Encounter Details Date Type Department Care Team (Late st Contact Info) Description 11/03/2020 Telephone [facility] [place] [address] [place] [address] Joni Ortega MD [address] [address] ED Follow-up ([facility] 11/01/20 for right knee pain); Results (knee [...] 1:54 PM CDT Patient calling. Was at [facility] on 11/01/20 for right knee pain. [...] [facility] General [facility] - [place] #[address] [facility] [address] [place] [address] Joni Ortega MD [address] [facility] [address] [place] [address] Toni Wood MD #2 [facility] [address] [place] [address] documented as of this encounter Visit Diagnoses Not on filedocumented in this encounter Additional Health Concerns Assessment Noted Time PHQ-9 Depression Total Score: 0 05/02/20 20 10:00 AM GREY GOODS MARKER documented as of this encounter Care Teams Riveting Machine Operator Tape Control Relationship Specialty Start Date End Date Joni Ortega MD #[address] [address] PCP - General Family Medicine 03/07/18 12/23/20 Garrison Martinez MD #[address] [address] PCP - General Family Medicine 12/24/20 12/25/20 Joni Ortega MD #[address] [address] PCP - General Family Medicine 12/26/20 Marvin Shaikh MD [address] [place] [address] Consulting Physician Oncology 07/22/17 John Paul Sharif MD [address] [place] [address] Consulting Physician Orthopaedic Surgery 07/22/17 Joni Manning MD 4 [facility] [address] [place] [address] Consulting Physician Neurology 02/15/18 Mark Bettencourt DO #[address] [address] Gastroenterology 06/07/18 Gabrielle Jones MD #[address] [address] Consulting Physician Orthopaedic Surgery 09/17/24 documented as of this encounter
--- OUTSIDE RECORDS SUMMARY | 2025-01-24 08:18 | XMS_ITS | Encounter Summary ---
Author Organization [facility] Address [address] [place] [address] Phone Care Team Providers Care Stock Driver Name Role Phone Marvin Shaikh MD Unavailable [phone] John Paul Sharif MD Unavailable [phone] Joni Manning MD Unavailable [phone] Mark Bettencourt DO Unavailable [phone] Joni Ortega MD Primary Care Provider [phone] Gabrielle Jones MD Unavailable Reason for Visit * Reason Onset Date Comments Follow-up 01/23/2025 Encounter Details Date Type Department Care Team (Late st Contact Info) Description 01/23/2025 Telephone [facility] Medical Group - Family [facility] #2 [place] [address] Joni Ortega MD #[address] [address] Follow-up Social History Tobacco Use Types Packs/Day Years [...] Telephone Encounter - Katina Valle RN - 01/23/2025 12:46 PM CDT Lvm for patient to call back * Telephone Encounter - Deisy Brooks RN - 01/23/2025 10:16 AM CDT Patient is very upset and frustrated and only wants to speak to MAIKEL Cazares. Patient states she is supposed to come in for a UA today, 01/23/2025, but someone called and told her that the nurses are not available today for a nurse visit to do this and she has already had this set up for 2 days so isnot sure why they are telling her she can't come in. Patient states she is just going to come into the office today anyway because it was already set up with MAIKEL Cazares. RN saw below message from MAIKEL Zee and attempted to call patient back to let her know that she must got to hospital to have UA done. Patient did not answer. * Telephone Encounter - Saadia Lan RN - 01/23/2025 10:13 AM CDT LVM for patient informing her that UA has been ordered to be completed at hospital. Nurse clinic isclosed today. If pt returns call she can be routed to nurse line as pt got confrontational with Emileigh at front counter attendant. * Telephone Encounter - Zo Apple RN - 01/23/2025 9:36 AM CDT Images from the original note were not included. Situation: Returning call Background: Patient contacting PCP office. Assessment: Advised of note stating: Joni Ortega MD 01/23/25 8:23 AM Note Please call. Ua ordered Katey stating she previously had appointment at 1:00pm for today, planning to come for appointmentat same time now that testing has been ordered. Recommendation: Call placed to front counter attendant, spoke with Martha. Martha to reach out to patient for scheduling of testing * Telephone Encounter - Katina Valle RN - 01/23/2025 9:14 AM CDT LVM for to call back * Telephone Encounter - Joni Ortega MD - 01/23/2025 8:23 AM CDT Please call. Ua ordered * Telephone Encounter - Jennifer Duffy MA - 01/23/2025 7:25 AM CDT Contacted Katey to reschedule her nurse visit she had scheduled for UTI symptoms, our nurse clinicnurses have called off today. She is not happy that I let her know we would have to reschedule, and states she is just needing tested for a UTI which is simple and I tried explaining to her that Medical Assistants cannot order the test, and she stated Dr. Ortega would order it for her. Dr. Ortega will you order the Urine without seeing patient? documented in this encounter Plan of Treatment Upcoming Encounters Date Type Department Care Team (Late st Contact Info) Description 01/30/2025 10:30 AM CDT Office Visit [facility] - [place] #2 [facility] [address] [place] [address] Joni Ortega MD [facility]2 [facility] [address] [place] [address] Toni Wood MD #2 [facility] [address] [place] [address] Scheduled Orders Name Type Priority Associated Diagnoses Orde r Schedule URINALYSIS REFLEX IF INDICATED BY ABNORMAL RESULTS Lab Routine Dysuria Expected: 01/23/2025, Expires: 01/30/2025 documented as of this encounter Visit Diagnoses Diagnosis Dysuria- Primary documented in this encounter Additional Health Concerns Assessment Noted Time PHQ-9 Depression Total Score: 0 11/14/19 25 6:12 PM CDT documented as of this encounter Care Teams Stock Driver Relationship Specialty Start Date End Date Joni Ortega MD #2 [facility] [address] [place] [address] PCP - General Family Medicine 12/26/20 Marvin Shaikh MD [address] [place] [address] Consulting Physician Oncology 07/22/17 John Paul Sharif MD 1 [facility] [address] [place] [address] Consulting Physician Orthopaedic Surgery 07/22/17 Joni Manning MD 4 [facility] # [address] [place] [address] Consulting Physician Neurology 02/15/18 Mark Bettencourt DO 4 [facility] # [address] [place] [address] Gastroenterology 06/07/18 Gabrielle Jones MD #[address] [address] Consulting Physician Orthopaedic Surgery 09/17/24 documented as of this encounter
--- OUTSIDE RECORDS SUMMARY | 2025-01-24 08:18 | XMS_ITS | Encounter Summary ---
Author Organization [facility] Address [address] [place] [address] Phone Care Team Providers Care Web Press Operator Name Role Phone Marvin Shaikh MD Unavailable John Paul Sharif MD Unavailable [phone] Joni Manning MD Unavailable Mark Bettencourt DO Unavailable [phone] Joni Ortega MD Primary Care Provider Gabrielle Jones MD Unavailable Encounter Details Date Type Department Care Team (Late st Contact Info) Description 01/23/2025 Telephone [facility] #2 [place] [address] Joni Ortega MD #[address] [address] Social History Tobacco Use Types Packs/Day Years [...] encounter Miscellaneous Notes * Telephone Encounter - Afshan Naygiselle Nguyen - 01/23/2025 10:29 AM CDT Talked with pt to explain her appointment with the nurse clinic was cancelled.Pt became very agitated and began raising her voice. I explained to pt that we can schedule her for tomorrow and she got louder and yelled at me stating she would be here at 1:00 PM today 01/24 for her appt. I tried explaining once again that she did not have an appt today and that it was cancelled and she once again star joel to yell at me. I then hung up. documented in this encounter Plan of Treatment Upcoming Encounters Date Type Department Care Team (Late st Contact Info) Description 01/30/2025 10:30 AM CDT Office Visit [facility] - [facility] #[address] [address] Joni Ortega MD #[address] [address] Toni Wood MD #[address] [place] [address] documented as of this encounter Visit Diagnoses Not on filedocumented in this encounter Additional Health Concerns Assessment Noted Time PHQ-9 Depression Total Score: 0 11/14/19 25 6:12 PM CDT documented as of this encounter Care Teams Web Press Operator Relationship Specialty Start Date End Date Joni Ortega MD #2 [facility] 205 [place] [address] PCP - General Family Medicine 12/26/20 Marvin Shaikh MD [address] [place] [address] Consulting Physician Oncology 07/22/17 John Paul Sharif MD 1 [address] [place] [address] Consulting Physician Orthopaedic Surgery 07/22/17 Joni Manning MD [address] [facility] [address] [place] [address] Consulting Physician Neurology 02/15/18 Mark Bettencourt DO 4 [facility] # [address] [place] [address] Gastroenterology 06/07/18 Gabrielle Jones MD #2 [facility] [address] [place] [address] Consulting Physician Orthopaedic Surgery 09/17/24 documented as of this encounter
--- OUTSIDE RECORDS SUMMARY | 2025-01-24 08:18 | XMS_ITS | Encounter Summary ---
Author Organization [facility] Address [address] [place] [address] Phone Care Team Providers Care Diagrammer Name Role Phone Marvin Shaikh MD Unavailable [phone] John Paul Sharif MD Unavailable [phone] Joni Manning MD Unavailable [phone] Mark Bettencourt DO Unavailable [phone] Joni Ortega MD Primary Care Provider [phone] Gabrielle Jones MD Unavailable Reason for Visit * Reason Onset Date Comments Referral 01/12/2023 External Orthope dic Referral Encounter Details Date Type Department Care Team (Late st Contact Info) Description 01/12/2023 Telephone [facility] [address] [place] [address] Joni Ortega MD #[address] [address] Referral (External Orthopedic Referral) Social History Tobacco [...] Visit [facility] #[address] [address] Joni Ortega MD #[address] [address] Toni Wood MD #[address] [address] documented as of this encounter Visit Diagnoses Not on filedocumented in this encounter Additional Health Concerns Assessment Noted Time PHQ-9 Depression Total Score: 14 023 10:00 AM CDT documented as of this encounter Care Teams Diagrammer Relationship Specialty Start Date End Date Joni Ortega MD #[address] [address] PCP - General Family Medicine 12/26/20 Marvin Shaikh MD [address] [place] [address] Consulting Physician Oncology 07/22/17 John Paul Sharif MD [address] [place] [address] Consulting Physician Orthopaedic Surgery 07/22/17 Joni Manning MD 4 [facility] # [address] [place] [address] Consulting Physician Neurology 02/15/18 Mark Bettencourt DO 4 [facility] # [address] [place] [address] Gastroenterology 06/07/18 Gabrielle Jones MD #[address] [facility] [address] [place] [address] Consulting Physician Orthopaedic Surgery 09/17/24 documented as of this encounter
--- OUTSIDE RECORDS SUMMARY | 2025-01-24 08:18 | XMS_ITS | Encounter Summary ---
Author Organization [facility] Address [address] [place] [address] Phone Care Team Providers Care Military Lawyer Name Role Phone Marvin Shaikh MD Unavailable [phone] John Paul Sharif MD Unavailable Joni Manning MD Unavailable Mark Bettencourt DO Unavailable [phone] Joni Ortega MD Primary Care Provider Gabrielle Jones MD Unavailable Encounter Details Date Type Department Care Team (Late st Contact Info) Description 08/23/2022 Telephone [facility] [address] [place] [address] Joni Ortega MD #[address] [address] Social History Tobacco Use Types Packs/Day Years [...] Coronavirus/COVID-19? No / Unsure 08/24/2022 12:21 PM SITE CONTROLLER documented as of this encounter Plan of Treatment Upcoming Encounters Date Type Department Care Team (Late st Contact Info) Description 01/30/2025 10:30 AM CDT Office Visit [facility] #2 [facility] [address] [place] [address] Joni Ortega MD #2 [facility] [address] [place] [address] Toni Wood MD #2 [facility] [address] [place] [address] documented as of this encounter Visit Diagnoses Not on filedocumented in this encounter Additional Health Concerns Assessment Noted Time PHQ-9 Depression Total Score: 0 11/12/19 22 12:00 PM CDT documented as of this encounter Care Teams Military Lawyer Relationship Specialty Start Date End Date Joni Ortega MD #2 [facility] [address] [place] [address] PCP - General Family Medicine 12/26/20 Marvin Shaikh MD [address] [place] [address] Consulting Physician Oncology 07/22/17 John Paul Sharif MD [address] [place] [address] Consulting Physician Orthopaedic Surgery 07/22/17 Joni Manning MD 4 [facility] # [address] [place] [address] Consulting Physician Neurology 02/15/18 Mark Bettencourt DO [address] [place] [address] # [address] [place] [address] Gastroenterology 06/07/18 Gabrielle Jones MD #2 [facility] [address] [place] [address] Consulting Physician Orthopaedic Surgery 09/17/24 documented as of this encounter
--- OUTSIDE RECORDS SUMMARY | 2025-01-24 08:18 | XMS_ITS | Encounter Summary ---
Author Organization [facility] Address [address] [place] [address] Phone Care Team Providers Care Station Usher Name Role Phone Marvin Shaikh MD Unavailable [phone] John Paul Sharif MD Unavailable [phone] Joni Manning MD Unavailable [phone] Joni Ortega MD Primary Care Provider [phone] Mark Bettencourt DO Unavailable [phone] Garrison Martinez MD Primary Care Provider [phone] Joni Ortega MD Primary Care Provider [phone] Gabrielle Jones MD Unavailable Reason for Visit * Reason Onset Date Comments Other 07/10/2020 Encounter Details Date Type Department Care Team (Late st Contact Info) Description 07/10/2020 Telephone [facility] [address] [place] [address] Joni Ortega MD #[address] [address] Other Social History Tobacco Use [...] Anna Andres RN - 07/10/2020 11:21 AM BASTING PULLER Patient calling stating that she has sinus infections every year and wants to know what medication she normally gets. Per review of chart last year she received Amoxicillin. Gave patient this information. Patient did not want to be triaged just wanted the information. She ended call. ING PULLER documented in this encounter Plan of Treatment Upcoming Encounters Date Type Department Care Team (Late st Contact Info) Description 01/30/2025 10:30 AM CDT Office Visit [facility] #[address] [address] Joni Ortega MD #[address] [place] [address] Toni Wood MD #[address] [place] [address] documented as of this encounter Visit Diagnoses Not on filedocumented in this encounter Additional Health Concerns Assessment Noted Time PHQ-9 Depression Total Score: 0 05/02/20 20 10:00 AM BASTING PULLER documented as of this encounter Care Teams Station Usher Relationship Specialty Start Date End Date Joni Ortega MD #2 [facility] [address] [place] [address] PCP - General Family Medicine 03/07/18 12/23/20 Garrison Martinez MD #2 [facility] [address] [place] [address] PCP - General Family Medicine 12/24/20 12/25/20 Joni Ortega MD #2 [facility] [address] [place] [address] PCP - General Family Medicine 12/26/20 Marvin Shaikh MD [address] [place] [address] Consulting Physician Oncology 07/22/17 John Paul Sharif MD 1 [facility] [address] [place] [address] Consulting Physician Orthopaedic Surgery 07/22/17 Joni Manning MD 4 [facility] # [address] [place] [address] Consulting Physician Neurology 02/15/18 Mark Bettencourt DO #2 [facility] [address] [place] [address] Gastroenterology 06/07/18 Gabrielle Jones MD #2 [facility] [address] [place] [address] Consulting Physician Orthopaedic Surgery 09/17/24 documented as of this encounter
--- OUTSIDE RECORDS SUMMARY | 2025-01-24 08:18 | XMS_ITS | Patient Health Record ---
Author Organization [employer] Address [address] [place] [address] Care Team Providers Care Phonograph Needle Tip Maker Name Role Phone ARIANNEANDRESSA WORTHY Primary Care Provider Allergies Allergen (clinical drug ingredient) Drug/Non Drug Allergy documented on EMR Reaction Allergy Type Onset Date Status tramadol tramadol (uncoded) hives Allergy A ctive erythromycin erythromycin base Unknown Drug Allergy Active Reason For Referral No Information Medications Medication SIG (Take, Route, Frequency, Duration) Notes Start Date End Date Status Escitalopram Oxalate 10 MG TAKE 1 TABLET(10 MG) BY MOUTH EVERY DAY Oral escitalopram oxalate 10 mg oral tablet 12/10/2019 Not-Taking Albuterol Sulfate HFA 108 (90 Base) MCG/ACT 1 puff as needed Inhalation every 4 hrs; Duration: 30 days 01/24/2020 Active Betamethasone Dipropionate 0.05 % apply a few drops to the affected area(s) by topical route 2 times per day in the morning and at bedtime ; rub in gently and completely External betamethasone dipropionate 0.05 % Topical Lotion 11/20/2019 Active diazePAM 5 MG take 1 tablet (5 mg) by oral route 3 times per day as needed Oral Three times daily; Duration: 30 days diazePAM 5 mg oral tablet Active oxyCODONE-Acetamino phen 10-325 MG take 1 tablet by oral route every 4 hours as needed for pain Oral oxyCODONE-acetamino phen 10-325 mg oral tablet 12/06/2019 Active Social History Tobacco Use: Social History Observation Description Date Details (start date - stop date) Current Smoker NA - NA Alcohol Screen (Audit-C) Question Answer Notes Did you have a drink containing alcohol in the p ast year? No Points 0 Interpretation Negative Smoking Question Answer Notes Are you a: current smoker How often do you smoke cigarettes? every day How many cigarettes a day do you smoke? 6-10 Problems Problem Type SNOMED Code ICD Code Onset Dates Problem Status W/U Status Risk Notes Problem Major depressive disorder, recurrent, moderate (F33.1) Active confirmed Problem Chronic pain (23351921) Other chronic pain (G89.29) Active confirmed Problem Fibromyalgia (976559613) Fibromyalgia (M79.7) Active confirmed Plan Of Treatment Pending Test Test Name Order Date X ray : Knee, right 01/17/2020 Urinalysis, Routine 12/31/2019 Insurance Providers Payer Name Payer Address Payer Phone Subscriber Number Group Number Insured Name Patient Relationship to Insured Coverage Start Date Coverage End Date [facility] [address] [address] [place] [address] [id number] ROBIN DOSS Self - patient is the insured 0 Medical (General) History Medical History History ICD Code Sleep Apnea: presumptive kwesi gnosis based on symptoms; Diverticulosis Fibromyalgia: dx'd in 2009; Fracture(s): left wrist; Scoliosis,Bone spurs tail bone Kusum Vesicolor AML CURRENT MEDICAL PROVIDERS:Oncologist[facility] degenerative [facility] disease Surgical History Surgery Date(Month/Year) Cholecystectomy: laparoscopic; uncomplic ated;
--- OUTSIDE RECORDS SUMMARY | 2025-01-24 08:18 | XMS_ITS | Encounter Summary ---
Author Organization [facility] Address [address] [place] [address] Phone Care Team Providers Care Pickling Drum Operator Name Role Phone Marvin Shaikh MD Unavailable [phone] John Paul Sharif MD Unavailable Joni Manning MD Unavailable Mark Bettencourt DO Unavailable [phone] Joni Ortega MD Primary Care Provider [phone] Gabrielle Jones MD Unavailable Reason for Visit * Reason Onset Date Comments Referral 02/11/2021 Encounter Details Date Type Department Care Team (Late st Contact Info) Description 02/11/2021 Telephone [facility] - [facility] #2 [place] [address] Joni Ortega MD #[address] [address] Referral Social History Tobacco Use Types Packs/Day [...] get her the referral. Please call patient. [phone] documented in this encounter Plan of Treatment Upcoming Encounters Date Type Department Care Team (Late st Contact Info) Description 01/30/2025 10:30 AM CDT Office Visit [facility] General [facility] #2 [facility] [address] [place] [address] Joni Ortega MD #2 [facility] [address] [place] [address] Toni Wood MD #2 [facility] [address] [place] [address] documented as of this encounter Visit Diagnoses Not on filedocumented in this encounter Additional Health Concerns Assessment Noted Time PHQ-9 Depression Total Score: 0 05/02/20 20 10:00 AM MILLING MACHINE OPERATOR documented as of this encounter Care Teams Pickling Drum Operator Relationship Specialty Start Date End Date Joni Ortega MD #2 [facility] [address] [place] [address] PCP - General Family Medicine 12/26/20 Marvin Shaikh MD [address] [place] [address] Consulting Physician Oncology 07/22/17 John Paul Sharif MD 1 [facility] [address] [place] [address] Consulting Physician Orthopaedic Surgery 07/22/17 Joni Manning MD 4 [facility] [address] [place] [address] Consulting Physician Neurology 02/15/18 Mark Bettencourt DO 4 [facility] [address] [place] [address] Gastroenterology 06/07/18 Gabrielle Jones MD #2 [facility] [address] [place] [address] Consulting Physician Orthopaedic Surgery 09/17/24 documented as of this encounter
--- OUTSIDE RECORDS SUMMARY | 2025-01-24 08:18 | XMS_ITS | Patient Health Record ---
Author Organization [facility] Address [address] [place] [address] Care Team Providers Care Salesperson Automobiles Name Role Phone Vel Parra Primary Care Provider Reason For Referral No Information Encounters Encounter Location Date Provider Diagnosis [address] [place] [address] 12/13/2024 Vel Parra Plan Of Treatment No Information
--- OUTSIDE RECORDS SUMMARY | 2025-01-24 08:18 | XMS_ITS | Encounter Summary ---
Author Organization [facility] Address [address] [place] [address] Phone Care Team Providers Care Rn Unit Manager Name Role Phone Marvin Shaikh MD Unavailable John Paul Sharif MD Unavailable [phone] Joni Manning MD Unavailable [phone] Mark Bettencourt DO Unavailable [phone] Joni Ortega MD Primary Care Provider Gabrielle Jones MD Unavailable Reason for Visit * Reason Comments Medication Refill Encounter Details Date Type Department Care Team (Late st Contact Info) Description 2021 Refill [facility] - Family [facility] #2 [place] [address] Joni Ortega MD #[address] [address] Medication Refill Social History Tobacco Use Types [...] Visit [facility] #[address] [address] Joni Ortega MD #[address] [address] Toni Wood MD #[address] [place] [address] documented as of this encounter Visit Diagnoses Diagnosis Anxiety Anxiety state, unspecified documented in this encounter Additional Health Concerns Assessment Noted Time PHQ-9 Depression Total Score: 0 11/12/19 22 12:00 PM CDT documented as of this encounter Care Teams Rn Unit Manager Relationship Specialty Start Date End Date Joni Ortega MD #[address] [place] [address] PCP - General Family Medicine 12/26/20 Marvin Shaikh MD [address] [place] [address] Consulting Physician Oncology 07/22/17 John Paul Sharif MD [address] [place] [address] Consulting Physician Orthopaedic Surgery 07/22/17 Joni Manning MD [address] [facility] [address] [place] [address] Consulting Physician Neurology 02/15/18 Mark Bettencourt DO [address] [facility] [address] [place] [address] Gastroenterology 06/07/18 Gabrielle Jones MD #2 [facility] [address] [place] [address] Consulting Physician Orthopaedic Surgery 09/17/24 documented as of this encounter
--- OUTSIDE RECORDS SUMMARY | 2025-01-24 08:18 | XMS_ITS | Patient Health Record ---
Author Organization [facility] Farooq cunningham Billing Info Address [address] [place] [address] [place] [address] Care Team Providers Care Trim Operator Name Role Phone URI HA [phone] Allergies Allergen (clinical drug ingredient) Drug/Non Drug [...] DIP STICK/TABLET REAGENT; AU TOMATED, W/O MICROSCOPY ([id number]) IH 08/20/2019 Insurance Providers Payer Name Payer Address Payer Phone Subscriber Number Group Number Insured Name Patient Relationship to Insured Coverage Start Date Coverage End Date AARP MEDICARE COMPLETE [facility] [address] [address] [facility] [place] [id number] Katey Kim Self - patient is the insured 0 0 Medical (General) History Medical History History ICD Code breast cancer Arthritis fibromyalgia nerve damage Surgical History Surgery Date(Month/Year) gall bladder surgery wrist surgery foot surgery
--- OUTSIDE RECORDS SUMMARY | 2025-01-24 08:18 | XMS_ITS | Encounter Summary ---
Author Organization [facility] Address [address] [place] [address] Phone Care Team Providers Care Crystal Growing Technician Name Role Phone Marvin Shaikh MD Unavailable [phone] John Paul Sharif MD Unavailable [phone] Joni Manning MD Unavailable [phone] Mark Bettencourt DO Unavailable [phone] Joni Ortega MD Primary Care Provider [phone] Gabrielle Jones MD Unavailable Reason for Visit * Reason Onset Date Comments Referral 01/18/2025 Encounter Details Date Type Department Care Team (Late st Contact Info) Description 01/18/2025 Telephone [facility] [address] [place] [address] Joni Ortega MD #[address] [address] Referral Social History Tobacco Use Types Packs/Day [...] Encounter - Katina Valle RN - 01/23/2025 9:15 AM CDT Lvm for patient to call back * Telephone Encounter - Joni Ortega MD - 01/22/2025 1:50 PM CDT Please call. Ask pain doctor for back brace. I dont know anyone in the area that does backs * Telephone Encounter - Joni Ortega MD - 01/22/2025 12:00 PM CDT Please call. Try dr drake * Telephone Encounter - Katina Valle RN - 01/22/2025 10:31 AM CDT Patient called back and stated that she needs a new referral for her back. Dr. Robert Panchal does not do backs? Do you want her to see a neurosurgeon? * Telephone Encounter - Nilsa Jackson RN - 01/21/2025 2:48 PM CDT Situation: Patient call back Background: Patient contacting PCP office. Assessment: Patient calling stating she just missed a phone call. Recommendation: Advised unable to see update on recommendations. Please call patient back. * Telephone Encounter - Jennifer Agee RN - 01/21/2025 1:42 PM CDT Situation: Patient calling to check on previous messages sent below. Background: See notes below. Patient states she has seen a provider for back pain, but that was when she lived in [place]. Assessment: Patient notified of provider message below, but patient states that she already sees a pain specialist tomorrow. Patient has first appointment tomorrow with Dr. Karl Calzada at [facility]. Patient states she has been calling for this office for weeks to try to get names of back doctors, but that she has not heard back from the office. Patient states she is just trying to get a backbrace to help her back pain. Patient would like a name of orthopedic provider that she should call to schedule with. Patient states that her insurance does not require a referral and that she can go anywhere, but just does not know who to go to. Offered to see if Dr. Ortega has any recommendations, but she states she does not want provider recommendations, but is adamant that she just wants a name of provider to see in [place] or [facility] that can get her a brace. Recommendations: Please advise with list of orthopedic providers that will see her for back pain. Patient would like call back. * Telephone Encounter - Joni Ortega MD - 01/21/2025 9:12 AM CDT Please call. Can I send you to a pain specialist? Sounds liek you have a lot of issues * Telephone Encounter - Katina Valle RN - 01/18/2025 11:35 AM CDT Called and spoke with patient and she stated that she has pain all over, She stated that she wants to see a specialist about her back pain, shoulder and wrist. This has been going on for years. She stated that she has been constipated more lately. Does not really go down her legs. She has all kinds of pain and very tearful because of all the pain and anxiety. * Telephone Encounter - Joni Ortega MD - 01/18/2025 10:31 AM CDT Please call. I need to know more about your issues prior to sending you to a specialist How long have you had the pain? Where is the pain exactly? Does it shoot into your legs? Any issues with moving your bladder or bowels? * Telephone Encounter - Aileen Neff RN - 01/18/2025 10:04 AM CDT Situation: Patient calling about external orthopedic referral. Background: Patient states she does not want to go to Dr. Drake or Dr. Morris due to a previous issues. Would like new referral to a different orthopedic doctor. Assessment: N/A Recommendation: Please advise if new referral can be submitted. Thank you. Please call patient once referral has been submitted. documented in this encounter Plan of Treatment Upcoming Encounters Date Type Department Care Team (Late st Contact Info) Description 01/30/2025 10:30 AM CDT Office Visit [facility] - General Surgery [facility] #[address] [phone] Joni Ortega MD [address] [place] [address] Toni Wood MD #[address] [place] [phone] documented as of this encounter Visit Diagnoses Not on filedocumented in this encounter Additional Health Concerns Assessment Noted Time PHQ-9 Depression Total Score: 0 11/14/19 6:12 PM CDT documented as of this encounter Care Teams Crystal Growing Technician Relationship Specialty Start Date End Date Joni Ortega MD #[address] [facility] [address] [place] [address] PCP - General Family Medicine 12/26/20 Marvin Shaikh MD [address] [place] [address] Consulting Physician Oncology 07/22/17 John Paul Sharif MD [address] [facility] [address] [place] [address] Consulting Physician Orthopaedic Surgery 07/22/17 Joni Manning MD 4 [facility] [address] [place] [address] Consulting Physician Neurology 02/15/18 Mark Bettencourt DO 4 [facility] [address] [place] [address] Gastroenterology 06/07/18 Gabrielle Jones MD #[address] [facility] [address] [place] [address] Consulting Physician Orthopaedic Surgery 09/17/24 documented as of this encounter
[2025-01-24 08:25] VITALS: BP 155/87; PULSE 83; RESP 16; TEMP 36.9; O2SAT 98
[2025-01-24 08:49] LABS: Add Urine Microscopic? NO; Appearance Urine Clear (Clear); Glucose Urine UA Negative (Negative); Leukocyte Esterase Ur Negative LEU/UL (Negative); Nitrate Urine Negative (Negative); Specific Grav Ur 1.014 (1.001-1.035)
--- NOTE | 2025-01-24 08:50 | ED.GENADULT ---
HPI - General Adult General Chief complaint: Urogenital-Female Stated complaint: ?UTI Time Seen by Provider: 01/24/25 08:20 History of Present Illness HPI narrative: Patient is a 74-year-old female who presents ER with concerns for UTI. She is having discomfort in her suprapubic region. Had recently been treated for UTI in last month and finished antibiotics 2 weeks ago. No fevers or chills or sweats. No urinary frequency urgency or dysuria. No foul-smelling urine. No vaginal discharge. No diarrhea/nausea/vomiting. Related Data Home Medications ?Medication ?Instructions ?Recorded ?Confirmed ?Last Taken ?Type albuterol sulfate 90 mcg/actuation 2 puff inhalation QID PRN 06/22/19 01/06/24 Unknown History aerosol inhaler (ProAir HFA) Shortness of breath oxycodone-acetaminophen 10 mg-325 1 - 2 tablet PO Q4-6H PRN Pain, 06/22/19 01/06/24 11/15/23 06:00 History mg tablet Moderate amitriptyline 75 mg tablet 75 mg PO HS 12/29/21 01/06/24 11/14/23 19:00 History Allergies Allergy/AdvReac Type Severity Reaction Status Date / Time erythromycin base Allergy Unknown Hives Verified 01/24/25 08:16 tramadol Allergy Unknown Hives Verified 01/24/25 08:16 Sulfa (Sulfonamide AdvReac Nausea Verified 01/24/25 08:16 Antibiotics) Review of Systems Review of Systems: All systems reviewed & are unremarkable except as noted in HPI and below Constitutional: Constitutional: Reports no additional constitutional complaints Cardiovascular: Cardiovascular: Reports no additional cardiovascular complaints Respiratory: Respiratory: Reports no additional respiratory complaints Gastrointestinal: Gastrointestinal: Reports no additional gastrointestinal complaints [facility] Past Medical History Medical History Asthma Tobacco abuse Chronic pain syndrome On long-term opioid therapy. Dyslipidemia Chronic obstructive pulmonary disease Transient ischemic attack (2020) Cancer of left breast Status post lumpectomy. Acute myeloid leukemia Fibromyalgia Anxiety Surgical History Surgical History History of incision and drainage Incision and drainage of complex left breast abscess 11/16/23 History of lumpectomy of left breast History of tonsillectomy History of cholecystectomy History of cataract extraction Family History Family History Other Unknown family medical history Social History Social History Social History: Surrogate medical decision maker: Lisa Barronak, friend. Code status: Full code. Smoking packs per day: 0.4 Smoking cigarettes per day: 8.0 Years smoked: 10 Smoking pack-years: 4.00 Smoking status: Current every day smoker Alcohol intake: former Alcohol use details: No recent alcohol use. Substance use: current Substance use type: marijuana and painkillers Do You Feel Safe in your Home?: Yes Lack of Transportation: No Lack of Food: Never True Current Housing: I Have Housing Concerned About Future Housing: No Difficulty Paying Gas/Electric Bills: No Difficulty Paying for Meds: No Currently Unemployed: No Education: Decline to Answer Difficulty w/ Childcare or Family Care: No Living arrangements: alone Additional living arrangements comments: . Lives in her own apartment in [place] with her Burkinan blue cat who is aptly named Ortiz. Spiritual care concerns: No Exam Narrative: GENERAL: Well-appearing, well-nourished, and in no acute distress. HEAD: Normocephalic, atraumatic. ENT: Mucous membranes moist. CHEST: Clear to auscultation. No respiratory distress. HEART: Regular rate and rhythm. Normal peripheral pulses. ABDOMEN: Soft, nontender, nondistended. EXTREMITIES: Normal range of motion. No edema. SKIN: Warm, dry, no rash. NEURO: Alert and oriented x3. PSYCH: Normal mood and affect. Course Course Emergency Course: Patient resting comfortably. Urine clean. Patient not interested in blood work. Abdomen soft nontender. Patient reports she has been suffering from constipation uses Dulcolax regularly. Will provide some magnesium citrate issues still having trouble using the restroom. Likely causing her pressure. Vital Signs Vital signs: Vital Signs Temperature 98.4 F 01/24/25 08:25 Pulse Rate 83 01/24/25 08:25 Respiratory Rate 16 01/24/25 08:25 Blood Pressure 155/87 H 01/24/25 08:25 Pulse Oximetry 98 01/24/25 08:25 Oxygen Delivery Room Air 01/24/25 08:25 Temperature 98.4 F 01/24/25 08:25 Pulse Rate 83 01/24/25 08:25 Respiratory Rate 16 01/24/25 08:25 Blood Pressure 155/87 H 01/24/25 08:25 Pulse Oximetry 98 01/24/25 08:25 Oxygen Delivery Room Air 01/24/25 08:25 Medical Decision Making Vital Signs Vital Signs: Vital Signs Temperature 98.4 F 01/24/25 08:25 Pulse Rate 83 01/24/25 08:25 Respiratory Rate 16 01/24/25 08:25 Blood Pressure 155/87 H 01/24/25 08:25 Pulse Oximetry 98 01/24/25 08:25 Oxygen Delivery Room Air 01/24/25 08:25 Temperature 98.4 F 01/24/25 08:25 Pulse Rate 83 01/24/25 08:25 Respiratory Rate 16 01/24/25 08:25 Blood Pressure 155/87 H 01/24/25 08:25 Pulse Oximetry 98 01/24/25 08:25 Oxygen Delivery Room Air 01/24/25 08:25 Lab Data Labs: Lab Results 01/24/25 Range/Units 08:33 Urine Color Yellow (Yellow) Urine Appearance Clear (Clear) Urine pH 5.5 (5.0-9.0) Ur Specific [place] 1.014 (1.001-1.035) Urine Protein Negative (Negative) mg/dL Urine Glucose (UA) Negative (Negative) mg/dL Urine Ketones Negative (Negative) mg/dL Ur Blood (Man) Negative (Negative) Urine Nitrate Negative (Negative) Urine Bilirubin Negative (Negative) Urine Urobilinogen 0.2 (<2.0) mg/dL Leukocyte Esterase Rfl Negative (Negative) DIMAS/UL Discharge Plan Discharge Clinical Impression: Constipation Patient Disposition: Home Condition: Stable Instructions: Constipation (ED) Additional Instructions: Return to the emergency department if you develop severe abdominal pain, severe nausea and vomiting to the point where you are unable to keep down fluids, if you develop chest pain or difficulty breathing, blood in your stool, dizziness or fainting, or if you develop any other new or concerning symptoms as these could be signs of more serious medical illness. Try to stay well hydrated. Patient Language: South African Prescriptions: No Action oxycodone-acetaminophen 10-325 mg Tablet 1 - 2 tablet PO Q4-6H PRN (Reason: Pain, Moderate) Patient Comments: Patient states she took her oxycodone 7/4 unknown time albuterol sulfate [ProAir HFA] 90 mcg/actuation Hfa Aerosol Inhaler 2 puff INHALATION QID PRN (Reason: Shortness of breath) doxycycline hyclate 100 mg Tablet 100 mg PO Q12HR Qty: 7 0RF amitriptyline 75 mg Tablet 75 mg PO HS Patient Comments: Patient states she took it this morning. AMS. Patient has had problems with this medication in the past. Follow-up/Referrals: Shannon,Joni Stewart MD [Primary Care Provider] - 1 Week
[2025-01-24] MEDS: MAGNESIUM CITRATE 300 ML BTL PO (09:50)
[2025-01-24 09:55] VITALS: BP 134/90; PULSE 78; RESP 16; TEMP 36.6; O2SAT 99
== END 2025-01-24 09:58 | disposition home or self-care (01) ==
PROVIDERS: Emergency Provider Emergency Medicine; PCP Internal Medicine
DX: K59.00 Constipation, unspecified (principal); J44.9 Chronic obstructive pulmonary disease, unspecified; E78.5 Hyperlipidemia, unspecified; M79.7 Fibromyalgia; G89.4 Chronic pain syndrome; F41.9 Anxiety disorder, unspecified; F17.210 Nicotine dependence, cigarettes, uncomplicated; Z85.6 Personal history of leukemia; Z86.73 Personal history of transient ischemic attack (TIA), and cerebral infarction without residual deficits; Z85.3 Personal history of malignant neoplasm of breast; Z90.49 Acquired absence of other specified parts of digestive tract; Z98.49 Cataract extraction status, unspecified eye
CPT/HCPCS: 81003; 99282; A9270

== ENCOUNTER 2025-02-01 16:25 | Emergency (ER) | payer MEDICARE, MEDICAID, SELFPAY ==
--- NOTE | ~2025-02-01 | XR_ITS ---
HISTORY: lateral joint line pain COMPARISON: None TECHNIQUE: 3 views of the right knee were performed FINDINGS: No acute or subacute fracture. Medial and lateral tibiofemoral joint space narrowing with sclerosis is identified. 12 mm extra-articular osseous body detected adjacent to the lateral femoral condyle of the femur, wit h lateral collateral ligament thickening, possibly the source of pain. Suprapatellar joint effusion is identified. The infrapatellar joint space is clear. Osseous insertion of the quadriceps tendon IMPRESSION: . Significant degenerative disease, with tendinosis of the lateral collateral ligament, as detailed above. No acute fracture. Reviewed, dictated and finalized at location A.
--- OUTSIDE RECORDS SUMMARY | 2025-02-01 16:27 | XMS_ITS ---
Author Organization [facility] Address [address] [place] [address] Care Team Providers Care Cigar Head Holer Name Role Phone Vel Parra Primary Care Provider REASON FOR VISIT Detox Encounters Encounter Location Date Provider Diagnosis [address] [place] [address] 12/18/2024 Vel Parra Plan Of Treatment No Information Progress Notes * Katey GOMESDOB: [birth year] (74 yo F)Acc No.[id number]:12/18/2024 UNLOCKED PROGRESS NOTE Patient: Katey MTZ Provider: Lily Parra, MSN, COTTON BALL MACHINE TENDER, WEDGER MACHINE-C :1950 A ge:74 Y S ex:Female Date:12/18/2024 Address:[address], [id number] Subjective: * Chief Complaints: * 1 . Detox. * Medical History: Objective: * Vitals: Assessment: Plan: * Treatment: * * Electronic signature of Cheryle Parra APRN, [id number] on 02/01/2025 at 04:27 PM CDT Sign off status: Pending * Provider: Lily Parra, MSN, COTTON BALL MACHINE TENDER, WEDGER MACHINE-C Date: 12/18/2024 Generated for Printi ng/Faxing/eTransmitting on: 02/01/2025 04:27 PM CDT
--- OUTSIDE RECORDS SUMMARY | 2025-02-01 16:27 | XMS_ITS | Encounter Summary ---
Author Organization [facility] Address [address] [place] [address] Phone Care Team Providers Care Boat Canvas Maker And Installer Name Role Phone Marvin Shaikh MD Unavailable John Paul Sharif MD Unavailable Joni Manning MD Unavailable [phone] Mark Bettencourt DO Unavailable [phone] Joni Ortega MD Primary Care Provider [phone] Gabrielle Jones MD Unavailable Toni Wood MD Unavailable Reason for Visit * Reason Comments Medication Refill Encounter Details Date Type Department Care Team (Late st Contact Info) Description 10/09/2024 [facility]ill [facility] #2 [place] [address] Nawaf Mancilla MD #[address] [address] Medication Refill Social History Tobacco Use Types [...] Care Team (Late st Contact Info) Description 02/04/2025 1:00 PM CDT Office Visit [facility] - Family [facility] #[address] [address] Marlee Moe, COMPOUNDER [employer] [address] [place] [address] documented as of this encounter Visit Diagnoses Diagnosis Humeral head fracture, left, closed, initial encounter documented in this encounter Additional Health Concerns Assessment Noted Time PHQ-9 Depression Total Score: 0 09/14/19 25 2:00 PM CDT documented as of this encounter Care Teams Boat Canvas Maker And Installer Relationship Specialty Start Date End Date Joni Ortega MD #[address] [facility] [address] [place] [address] PCP - General Family Medicine 12/26/20 Marvin Shaikh MD [address] [place] [address] Consulting Physician Oncology 07/22/17 John Paul Sharif MD [address] [place] [address] Consulting Physician Orthopaedic Surgery 07/22/17 Joni Manning MD 4 [facility] [address] [place] [address] Consulting Physician Neurology 02/15/18 Mark Bettencourt DO 4 [facility] [address] [place] [address] Gastroenterology 06/07/18 Gabrielle Jones MD [address] [address] Consulting Physician Orthopaedic Surgery 09/17/24 Toni Wood MD #[address] [address] Consulting Physician General Surgery 01/25/25 documented as of this encounter
--- OUTSIDE RECORDS SUMMARY | 2025-02-01 16:28 | XMS_ITS | Clinical Summary ---
Author Organization [facility] Address [address], [address] [address] Phone Care Team Providers Care Landscape Contractor Name Role Phone Marvin Shaikh MD Unavailable [phone] John Paul Sharif MD Unavailable [phone] Joni Manning MD Unavailable Mark Bettencourt DO Unavailable [phone] Joni Ortega MD Primary Care Provider [phone] Gabrielle Jones MD Unavailable Toni Wood MD Unavailable Allergies Active Allergy Reactions Criticality [...] Sleep. 30 Tablet 12/08/19 25 025 Discontinued(R eorder) ipratropium-a lbuterol (DUO-NEB) 0.5-2.5 (3) MG/3ML Solution [...] Encounters Date Type Department Care Team Description 01/24/2025 Telephone [facility] [address] [place] [phone] Joni Ortega MD Appointment 01/23/2025 [facility] [place] [address] Joni Ortega MD 01/23/2025 [facility]phone [facility] [place] [address] Joni Ortega MD Follow-up 01/18/2025 [facility] [address] [place] [phone] Joni Ortega MD Referral 01/17/2025 [facility] [place] [address] Joni Ortega MD Medication Refill 01/14/2025 [facility] [address] [place] [phone] Joni Ortega MD Medication Management 01/11/2025 [facility]phone [facility] [address] [place] [phone] Joni Ortega MD Need Order 01/09/2025 Nurse Triage [facility] [address] [place] [phone] Joni Ortega MD Medication Problem 01/08/2025 10:30 AM CDT - 01/08/2025 1:05 PM CDT [facility] [address] [place] [address] Gavin Sims PAC Chronic low back pain Discharge Disposition: Discharged to home or Selfcare 01/08/2025 Travel 01/08/2025 Nurse Triage [facility] [address] [place] [phone] Joni Ortega MD Back Pain; Need Order 01/07/2025 [facility] [place] [phone] Joni Ortega MD Medication Refill 01/03/2025 [facility] [address] [place] [phone] Joni Ortega MD Advice Only; Nasal Congestion 01/02/2025 [facility]phone [facility] [address] [place] [phone] Joni Ortega MD Referral; Follow-up 01/01/2025 [facility] [address] [place] [phone] Joni Ortega MD Yeast Infection; Follow-up 12/31/2024 [facility]ill [facility] [address] [place] [phone] Joni Ortega MD Medication Refill 12/25/2024 [facility]phone [facility] [address] [place] [phone] Joni Ortega MD Referral (ortho) 12/24/2024 [facility] [address] [place] [phone] Joni Ortega MD Yeast Infection 12/24/2024 [facility]phone [facility] [address] [place] [phone] Joni Ortega MD Advice Only 12/20/2024 [facility]phone [facility] [address] [place] [phone] Joni Ortega MD Post-Hospital Follow-up 12/13/2024 [facility] [place] [phone] Joni Ortega MD Advice Only 12/11/2024 1:15 PM CDT [facility] [place] [phone] Joni Ortega MD Uncomplicated opioid dependence (HCC) (Primary Dx); Chronic cough; Chronic midline thoracic back pain; Mild intermittent asthma without complication Discharge Disposition: Discharged to home or Selfcare 12/11/2024 Travel 12/10/2024 [facility] [address] [place] [phone] Joni Ortega MD Advice Only 12/10/2024 [facility]phone [facility] [address] [place] [phone] Joni Ortega MD Care Management; Appointment 2024 [facility] [address] [place] [phone] Joni Ortega MD Medication Refill 11/27/2024 [facility] [place] [phone] Joni Ortega MD Medication Refill 11/27/2024 [facility]phone [facility] [address] [place] [phone] Joni Ortega MD Discuss Test Result 11/27/2024 Telephone [facility] [address] [place] [phone] Joni Ortega MD Follow-up 11/23/2024 [facility]phone [facility] [address] [place] [phone] Joni Ortega MD Follow-up; Referral 11/22/2024 [facility]phone [facility] [address] [place] [phone] Joni Ortega MD Advice Only 11/16/2024 Telephone [facility] [place] [phone] Joni Ortega MD 11/16/2024 Results Follow-Up [facility] [place] [phone] Joni Ortega MD CMP (COMPREHENSIVE METABOLIC PANEL), THYROID STIMULATING HORMONE (TSH), ELECTROPHORESIS W/ TOTAL PROTEIN SERUM, Additional followed-up results: 2 11/15/2024 Telephone [facility] [place] [address] Joni Ortega MD Results 11/15/2024 [facility] [address] [place] [address] Joni Ortega MD Results 11/14/2024 Nurse Triage [facility] [place] [address] Joni Ortega MD Abdominal Pain 11/14/2024 Telephone [facility] [address] [place] [phone] Joni Ortega MD Medication Management 11/13/2024 3:59 PM CDT - 11/13/2024 11:59 PM CDT [facility] [address] [place] [address] Joni Ortega MD Discharge Disposition: Discharged to home or Selfcare 11/13/2024 3:30 PM CDT [facility] [place] [address] Joni Ortega MD Dysuria (Primary Dx); Chronic cough; Weight loss; Chronic fatigue; Primary insomnia Discharge Disposition: Discharged to home or Selfcare 11/12/2024 11:15 AM CDT Office Visit [facility] [address] [place] [phone] Gabrielle Jones MD Primary osteoarthritis of left shoulder (Primary Dx); Nondisplaced fracture of lesser tuberosity of left humerus, subsequent encounter for fracture with routine healing Discharge Disposition: Discharged to home or Selfcare 11/12/2024 10:15 AM CDT - 11/12/2024 11:59 PM CDT Hospital Encounter [facility] [address] [place] [address] Gabrielle Jones MD Discharge Disposition: Discharged to home or Selfcare 11/12/2024 Travel 11/08/2024 [facility]phone [facility] [address] [place] [address] Joni Ortega MD Results 11/08/2024 Telephone [facility] [place] [phone] Joni Ortega MD Results 11/07/2024 Telephone [facility] [place] [phone] Joni Ortega MD 11/06/2024 [facility] [address] [place] [phone] Joni Ortega MD Insomnia 11/06/2024 [facility] [place] [phone] Joni Ortega MD Medication Refill 11/05/2024 [facility] [address] [place] [address] Joni Ortega MD Urinary Problem from Last 3 Months Immunizations Immunization Administration [...] Office Visit [facility] [address] [place] [phone] Marlee Moe, LUBE MAN, DATA ANALYTICS SPECIALIST [address] [place] [address] Health Maintenance Due Date Last Done Comments [...] Temporarily Declines) Diabetes: Hemoglobin A1c 06/16/2025 12/15/2024, 03 Diabetes: Nephropathy Screening 11/13/2025 11/13/2024, 09/13/2024, 12/01/2022, [...] 1.003 - 1.030 01/08/2025 12:54 PM CDT [facility] URINE PH 6.0 5.0 - 9.0 01/08/2025 12:54 PM CDT [facility] WBC ESTERASE 100 /uL(A) Negative 01/08/2025 12:54 PM CDT [facility] NITRITE Negative Negative 01/08/2025 12:54 PM CDT [facility] PROTEIN, RANDOM URINE 30 mg/dL(A) Negative 01/08/2025 12:54 PM CDT [facility] URINE GLUCOSE, QUAL Negative Negative 01/08/2025 12:54 PM CDT [facility] URINE KETONES Negative Negative 01/08/2025 12:54 PM CDT [facility] UROBILINOGEN Normal Normal mg/dL 01/08/2025 12:54 PM CDT [facility] URINE BLOOD 25 /uL(A) Negative steve/ul 01/08/2025 12:54 PM CDT [facility] URINALYSIS COLOR Yellow 01/09/20 12:54 PM CDT [facility] URINALYSIS CLARITY Slightly Cloudy 01/08/2025 12:54 PM CDT [facility] WBC (Urine) 0-5 Negative, 0-5 /hpf 01/08/2025 12:54 PM CDT [facility] URINE RBC'S 0-2 Negative, 0-2 /hpf 01/08/2025 12:54 PM CDT [facility] EPITHELIAL CELLS Large amount squamous /lpf 01/08/2025 12:54 PM CDT [facility] BACTERIA, URINE Moderate(A) Negative /hpf 01/08/2025 12:54 PM CDT [facility] Urine URINE SPECIMEN / Unknown Non-Phlebotomy Collection / Unknown 01/08/2025 11:50 AM CDT 01/08/2025 12:12 PM CDT us Gavin Sims PAC URINE ORDERABLES Fin al Result [facility] [place] [address] * CT LUMBAR SPINE WO CONTRAST (01/08/2025 [...] flavum hypertrophy. There is facet arthropathy with mawm-ff-onmhzdhr right neural foraminal narrowing and moderate to [...] canal stenosis. There is facet arthropathy with sglz-qh-tftdyhuo bilateral neural foraminal narrowing. L3-L4: There is [...] Daniel Bowen D.O. PS: MAGDI Report ID: [id number] Reading Location: [id number] Procedure Note Daniel Bowen DO - 01/08/2025 [...] flavum hypertrophy. There is facet arthropathy with lnbk-mu-vacfnlnh right neural foraminal narrowing and moderate to [...] canal stenosis. There is facet arthropathy with dmga-ie-ezzmfhfr bilateral neural foraminal narrowing. L3-L4: There is [...] Daniel Bowen D.O. PS: MAGDI Report ID: [id number] Reading Location: [id number] IMPRESSION: 1. Mild osteopenia with minimal to [...] 5. Punctate bilateral nonobstructing renal calculi. Gavin Chenn PAC IMG CT ORDERABLES Fi nal Result [...] by Елена Fernandez M.D. AB: Report ID: [id number] Reading Location: [id number] Procedure Note Елена Fernandez MD - 11/14/2024 [...] by Елена Fernandez M.D. AB: Report ID: [id number] Reading Location: [id number] IMPRESSION: No acute cardiopulmonary abnormality. Joni Ortega MD IMG DIAGNOSTIC ORDERABLES Fin al Result * CBC WITH AUTO DIFFERENTIAL (11/13/2024 3:59 PM CDT) WBC 7.76 4.00 - 12.00 10(3)/mcL 11/13/2024 4:18 PM CDT [facility] RBC 4.96 3.80 - 5.30 10(6)/mcL 11/13/2024 4:18 PM CDT [facility] HEMOGLOBIN (HGB) 15.1 12.0 - 15.8 g/dL 11/13/2024 4:18 PM CDT [facility] HEMATOCRIT (HCT) 45.6 36.0 - 47.0 % 11/13/2024 4:18 PM CDT [facility] MCV 91.9 82.0 - 96.0 fL 11/13/2024 4:18 PM CDT [facility] MCH 30.4 26.0 - 34.0 pg 11/13/2024 4:18 PM CDT [facility] MCHC 33.1 31.0 - 36.0 g/dL 11/13/2024 4:18 PM CDT [facility] PLATELET COUNT 279 140 - 440 10(3)/mcL 11/13/2024 4:18 PM CDT [facility] RDW 13.4 11.8 - 15.5 % 11/13/2024 4:18 PM CDT [facility] MPV 10.1 9.7 - 12.4 fL 11/13/2024 4:18 PM CDT [facility] NEUTROPHILS 58.4 47.0 - 73.0 % 11/13/2024 4:18 PM CDT [facility] LYMPHOCYTES 29.9 18.0 - 42.0 % 11/13/2024 4:18 PM CDT [facility] MONOCYTES 8.0 4.0 - 12.0 % 11/13/2024 4:18 PM CDT [facility] EOSINOPHILS 2.7 0.0 - 5.0 % 11/13/2024 4:18 PM CDT [facility] BASOPHILS 1.0 0.0 - 1.0 % 11/13/2024 4:18 PM CDT [facility] ABSOLUTE NEUTROPHILS 4.53 1.60 - 7.70 10(3)/mcL 11/13/2024 4:18 PM CDT [facility] ABSOLUTE LYMPHOCYTES 2.32 1.30 - 3.20 10(3)/mcL 11/13/2024 4:18 PM CDT [facility] ABSOLUTE MONOCYTES 0.62 0.20 - 1.00 10(3)/mcL 11/13/2024 4:18 PM CDT [facility] ABSOLUTE EOSINOPHIL 0.21 0.00 - 0.40 10(3)/[facility] 11/13/2024 4:18 PM CDT [facility] ABSOLUTE BASOPHILS 0.08 0.00 - 0.10 10(3)/[facility] 11/13/2024 4:18 PM CDT [facility] NRBC PER 100 WBC 0 11/14/19 4:18 PM CDT [facility] Blood Venipuncture / Unknown 11/13/2024 3:59 PM CDT 11/13/2024 4:15 PM CDT Joni Ortega MD HEMATOLOGY ORDERABLES Final R esult Performing Organization Address [facility]/ZIP Co de Phone Number [facility] [address] [place] [address] * THYROID STIMULATING HORMONE (TSH) (11/13/2024 3:59 PM CDT) Pathologist [facility] TSH 0.512 0.300 - 5.000 mIU/L 11/13/2024 4:53 PM CDT [facility] Blood Venipuncture / Unknown 11/13/2024 3:59 PM CDT 11/13/2024 4:15 PM CDT Joni Ortega MD CHEMISTRY ORDERABLES Final Re sult Performing Organization Address [facility] Co de Phone Number [facility] [address] [place] [address] * (ABNORMAL) ELECTROPHORESIS W/ TOTAL PROTEIN SERUM (11/13/2024 3:59 PM CDT) [facility] TOTAL PROTEIN 6.8 6.0 - 8.0 g/dL 11/15/2024 11:27 AM CDT [facility] % ALBUMIN 57.2 55.8 - 66.7 % 11/15/2024 11:27 AM CDT [facility] ALBUMIN SERUM 3.9 2.5 - 5.4 g/dL 11/15/2024 11:27 AM CDT [facility] % ALPHA 1 GLOBULIN 4.3 2.9 - 4.9 % 11/15/2024 11:27 AM CDT [facility] ALPHA 1 0.3 0.2 - 0.4 g/dL 11/15/2024 11:27 AM CDT [facility] % ALPHA 2 GLOBULIN 13.0(H) 7.1 - 11.8 % 11/15/2024 11:27 AM CDT [facility] ALPHA 2 0.9 0.5 - 1.0 g/dL 11/15/2024 11:27 AM CDT [facility] % BETA 14.3(H) 8.4 - 13.1 % 11/15/2024 11:27 AM CDT [facility] BETA-GLOBULIN 1.0 0.5 - 1.1 g/dL 11/15/2024 11:27 AM CDT [facility] % GAMMA GLOBULIN 11.2 11.1 - 18.8 % 11/15/2024 11:27 AM CDT [facility] GAMMA 0.8 0.7 - 1.5 g/dL 11/15/2024 11:27 AM CDT [facility] SPE INTERPRETATION No abnormal protein band is detected by serum protein electrophore sis. Reviewed by Stefani Perez, Ph.D. [facility] BRYAN TRACK 11/15/2024 11:27 AM CDT [facility] A/G RATIO, SERUM 1.3 11/16/19 11:27 AM CDT [facility] Blood Venipuncture / Unknown 11/13/2024 3:59 PM CDT 11/13/2024 4:14 PM CDT Narrative [facility] - 11/15/2024 11:27 AM CDT Reviewed by Abel Robin M.D. us Joni Ortega MD CHEMISTRY ORDERABLES Final Re sult Performing Organization Address [facility]/ZIP Co de Phone Number [facility] [address] [place] [address], [place] * CULTURE, URINE (11/13/2024 3:59 PM CDT) Only the most recent of2 resultswithin the time period is included. CULTURE RESULTS Mixed Growth of One or More Distal Urethral Contaminants 11/14/2024 10:11 PM CDT [facility] Culture URINE SPECIMEN OBTAINED BY CLEAN CATCH PROCEDURE / Unknown Non-Phlebotomy Collection / Unknown 11/13/2024 3:59 PM CDT 11/13/2024 4:15 PM CDT us Joni Ortega MD MICROBIOLOGY - GENERAL ORDERA BLES Final Result Performing Organization Address City/[facility]/ZIP Co de Phone Number [facility] [address] [place] [address], * (ABNORMAL) CMP (COMPREHENSIVE METABOLIC PANEL) (11/13/2024 3:59 PM CDT) SODIUM 136 136 - 145 mmol/L 11/13/2024 4:35 PM CDT [facility] POTASSIUM 4.1 3.5 - 5.1 mmol/L 11/13/2024 4:35 PM CDT [facility] CHLORIDE 103 98 - 107 mmol/L 11/13/2024 4:35 PM CDT [facility] CO2, VENOUS 24 22 - 30 mmol/L 11/13/2024 4:35 PM CDT [facility] ANION GAP 13.1 <18.0 mmol/L 11/13/2024 4:35 PM CDT [facility] GLUCOSE 121(H) 70 - 99 mg/dL 11/13/2024 4:35 PM CDT [facility] BUN 9(L) 10 - 20 mg/dL 11/13/2024 4:35 PM CDT [facility] CREATININE, BLOOD 1.00 0.60 - 1.00 mg/dL 11/13/2024 4:35 PM CDT [facility] BUN/CREATININE RATIO 9(L) 12 - 20 ratio 11/13/2024 4:35 PM CDT [facility] TOTAL PROTEIN 7.3 6.0 - 8.0 g/dL 11/13/2024 4:35 PM CDT [facility] ALBUMIN 4.6 3.5 - 5.0 g/dL 11/13/2024 4:35 PM CDT [facility] A/G RATIO 1.7 1.0 - 2.2 11/13/2024 4:35 PM CDT [facility] CALCIUM 9.9 8.7 - 10.5 mg/dL 11/13/2024 4:35 PM CDT [facility] T BILI 0.3 0.2 - 1.2 mg/dL 11/13/2024 4:35 PM CDT [facility] SGOT (AST) 22 <43 U/L 11/13/2024 4:35 PM CDT [facility] SGPT (ALT) 24 <56 U/L 11/13/2024 4:35 PM CDT [facility] ALKALINE PHOSPHATASE 99 40 - 150 U/L 11/13/2024 4:35 PM CDT [facility] IS THE PATIENT REQUIRED TO BE FASTING? No 11/13/2024 4:35 PM CDT [facility] GFR, ESTIMATED 59(L) >=60 11/13/2024 4:35 PM CDT [facility] Comment: Creatinine Clearance is the preferred criteria for selecting drug dose adjustments in renally impaired patients. The GFR is provided as additional pertinent clinical information. GFR is reported in mL/min/1.73 sq m. Calculation based on the Chronic Kidney Disease Epidemiology Collaboration (CKD- EPI) equation refit without adjustment for race. GFR, EST. >60 >=60 025 4:35 PM CDT [facility] GFR, EST. NONAFRICAN 54(L) >=60 11/13/2024 4:35 PM CDT [facility] Blood Venipuncture / Unknown 11/13/2024 3:59 PM CDT 11/13/2024 4:15 PM CDT Joni Ortega MD CHEMISTRY ORDERABLES Final Re sult [facility] [address] [place] [address] * XR SHOULDER COMPLETE LEFT (11/12/2024 10:32 [...] Елена Fernandez M.D. AB: AB Report ID: [id number] Reading Location: [id number] Procedure Note Елена Fernandez MD - 11/14/2024 [...] Елена Fernandez M.D. AB: AB Report ID: [id number] Reading Location: [id number] IMPRESSION: Degenerative changes without definite evidence of acute fracture. Gabrielle Jones MD IM DIAGNOSTIC ORDERABLES Final Result * (ABNORMAL) HEMOGLOBIN A1C W/ ESTIMATED GLUCOSE (09/13/2024 3:06 PM CDT) HGB-A1C 6.4(H) 4.0 - 6.0 % 09/13/2024 4:03 PM CDT [facility] Est Average Glucose 137.0 mg/dL 09/13/2024 4:03 PM CDT [facility] Blood Venipuncture / Unknown 09/13/2024 3:06 PM CDT 09/13/2024 3:46 PM CDT Narrative [facility] - 09/13/2024 4:03 PM CDT HEMOGLOBIN A1C: DIABETIC PATIENTS: WELL-CONTROLLED: 6.2 - 7.0 INTERMEDIATE WELL-CONTROLLED: 7.0 - 9.0 POORLY-CONTROLLED: >9.0 Specimens containing greater than 5% of Hemoglobin F may result in lower than expected % HbA1C results. Nawaf Mancilla MD CHEMISTRY ORDERABLES Amalia mccurdy Result [facility] [address] [place] [address] * HEPATITIS PANEL ACUTE (AHP) (02/23/2022 2:36 PM CDT) HEPATITIS A IGM ANTIBODY NON DETECTED NON DETECTED [facility] [id number] 02/23/2022 10:26 PM CDT [facility] Comment: IGM Antibodies to HAV not detected. Does not exclude early acute or recovered HAV infection. HEP B CORE AB (IGM) NON DETECTED NON DETECTED [place] [id number] B 02/23/2022 10:26 PM CDT [facility] Comment:IGM anti-HBC not det ected. Does not exclude the possibility of exposure to or infection with HBV. HEPATITIS B SURFACE ANTIGEN NON DETECTED NON DETECTED [place] [id number] B 02/23/2022 10:26 PM CDT [facility] Comment:A nonreactive test r esult does not exclude the possibility of exposure to or infection with Hepatitis B virus. A nonreactive test result in individuals with prior exposure to hepatitis B may be due to antigen levels below the detection limit of this assay or lack of antigen reactivity to the antibodies in this assay. hepatitis C antibody 0.08 <1 S/CO [facility] ARCH [id number] 02/23/2022 10:26 PM CDT [facility] Comment: Signal/Cutoff ratio < 0.79 is Nondetected Signal/Cutoff ratio 0.80-0.99 is Grayzone Signal/Cutoff ratio > 0.99 is Detected Supplemental assays are recommended if signal/cutoff ratio is >/=1.00. Signal/cutoff ratio result >/= 5.00 is 97% predictive of positivity for recombinant immunoblot assay (RIBA) and will be reported to the [place] Department of Public Health as required. Blood Venipuncture / Unknown 02/23/2022 2:36 PM CDT 02/23/2022 2:36 PM CDT Joni Ortega MD HEMATOLOGY ORDERABLES Final R esult [facility] [address] [place] [address], * POCT STOOL, OCCULT BLOOD, DIAGNOSTIC (10/04/2018 8:50 AM CDT) OCCULT BLOOD, STOOL Negative Negative, Other POC HEMOCULT CONTROL Supervisor [employer] Pass 10/04/2018 8:50 AM CDT Chantal Case APRN, DATA ANALYTICS SPECIALIST POINT OF CARE TESTIN G (MANUAL) [...] to exams dated: 12/25/2008, 05/29/2013, and 05/01/2008 [facility]. BREAST TISSUE: The tissue of both breasts [...] signed by: Chrissy Carter M.D. pw/:11/29/2017 10:52:53 Ug Designer: Padma Rodriguez(Gil), [facility] Reading location: [facility] BI-RADS: 0 Additional Imaging Evaluation Needed Procedure [...] to exams dated: 12/25/2008, 05/29/2013, and 05/01/2008 [facility]. BREAST TISSUE: The tissue of both breasts [...] signed by: Chrissy Carter M.D. pw/:11/29/2017 10:52:53 Ug Designer: Padma Rodriguez(Gil), [facility] Reading location: [facility] BI-RADS: 0 Additional Imaging Evaluation Needed us Hill Montano MD IMG MAMMO ORDERABLES Amalia l Result from Last 3 Months or Most Recently Relevant to Health Maintenance Insurance [place] MEDICARE C [facility] Advance Directives * Full Code (Latest Code Status on File) Date Activated Date Inactivated Comments 07/04/2016 4:32 PM 07/04/2016 11:21 PM CPR-Full Moriah tment: FULL ARREST: Attempt Resuscitation/CPR wit intubation and mechanical ventilation. PRE-ARREST: Use entire range of life support measures to stabilize the patient. Care Teams Landscape Contractor Relationship Specialty Start Date End Date Joni Ortega MD #[address] [id number] PCP - General Family Medicine 12/26/20 Marvin Shaikh MD [address] [place] [address] Consulting Physician Oncology 07/22/17 John Paul Sharif MD 1 [facility] [address] [place] [address] Consulting Physician Orthopaedic Surgery 07/22/17 Joni Manning MD 4 [facility] [address] [place] [address] Consulting Physician Neurology 02/15/18 Mark Bettencourt DO 4 [facility] [address] [place] [address] Gastroenterology 06/07/18 Gabrielle Jones MD #[address] [facility] [facility] [address] [place] [address] Consulting Physician Orthopaedic Surgery 09/17/24 Toni Wood MD #[address] [facility] [address] [place] [address] Consulting Physician General Surgery 01/25/25
--- OUTSIDE RECORDS SUMMARY | 2025-02-01 16:28 | XMS_ITS | Encounter Summary ---
Author Organization [facility] Address [address] [place] [address] Phone Care Team Providers Care Reference Data Expert Name Role Phone Marvin Shaikh MD Unavailable [phone] John Paul Sharif MD Unavailable Joni Manning MD Unavailable [phone] Mark Bettencourt DO Unavailable [phone] Joni Ortega MD Primary Care Provider Gabrielle Jones MD Unavailable Toni Wood MD Unavailable Encounter Details Date Type Department Care Team (Late st Contact Info) Description 08/23/2022 Telephone [facility] [address] [place] [address] Joni Ortega MD #[address] [address] Social History Tobacco Use Types Packs/Day Years [...] Coronavirus/COVID-19? No / Unsure 08/24/2022 12:21 PM DRAINMAN documented as of this encounter Plan of Treatment Upcoming Encounters Date Type Department Care Team (Late st Contact Info) Description 02/04/2025 1:00 PM CDT Office Visit [facility] - Family Medicine [facility] #[address] [place] [address] Marlee Moe, AGRONOMY ADVISOR, SPORTS CENTRE MANAGER 2 [place] [address] documented as of this encounter Visit Diagnoses Not on filedocumented in this encounter Additional Health Concerns Assessment Noted Time PHQ-9 Depression Total Score: 0 11/12/19 22 12:00 PM CDT documented as of this encounter Care Teams Reference Data Expert Relationship Specialty Start Date End Date Joni Ortega MD #2 [facility] [address] [place] [address] PCP - General Family Medicine 12/26/20 Marvin Shaikh MD [address] [place] [address] Consulting Physician Oncology 07/22/17 John Paul Sharif MD 1 [facility] [address] [place] [address] Consulting Physician Orthopaedic Surgery 07/22/17 Joni Manning MD 4 [facility] [address] [place] [address] Consulting Physician Neurology 02/15/18 Mark Bettencourt DO [address] [place] [address] # [address] [place] [address] Gastroenterology 06/07/18 Gabrielle Jones MD #[address] [address] Consulting Physician Orthopaedic Surgery 09/17/24 Toni Wood MD #[address] [address] Consulting Physician General Surgery 01/25/25 documented as of this encounter
--- OUTSIDE RECORDS SUMMARY | 2025-02-01 16:28 | XMS_ITS | Encounter Summary ---
Author Organization [facility] Address [address] [place] [address] Phone Care Team Providers Care Steel Floor Pan Placing Supervisor Name Role Phone Marvin Shaikh MD Unavailable John Paul Sharif MD Unavailable Joni Manning MD Unavailable [phone] Mark Bettencourt DO Unavailable [phone] Joni Ortega MD Primary Care Provider Gabrielle Jones MD Unavailable Toni Wood MD Unavailable [phone] Reason for Visit * Reason Comments Medication Refill Encounter Details Date Type Department Care Team (Late st Contact Info) Description 2021 Refill [facility] #[address] [place] [address] Joni Ortega MD #[address] [address] Medication Refill Social History Tobacco Use Types [...] Office Visit [facility] - Family [facility] #2 [place] [address] Marlee Moe, MERCHANDISING TEAM LEAD, MINE PRODUCTION ENGINEER 2 [place] [address] documented as of this encounter Visit Diagnoses Diagnosis Anxiety Anxiety state, unspecified documented in this encounter Additional Health Concerns Assessment Noted Time PHQ-9 Depression Total Score: 0 11/12/19 22 12:00 PM CDT documented as of this encounter Care Teams Steel Floor Pan Placing Supervisor Relationship Specialty Start Date End Date Joni Ortega MD #[address] [address] PCP - General Family Medicine 12/26/20 Marvin Shaikh MD [address] [place] [address] Consulting Physician Oncology 07/22/17 John Paul Sharif MD 1 [facility] [address] [place] [address] Consulting Physician Orthopaedic Surgery 07/22/17 Joni Manning MD 4 [facility] [address] [place] [address] Consulting Physician Neurology 02/15/18 Mark Bettencourt DO 4 [facility] # [address] [place] [address] Gastroenterology 06/07/18 Gabrielle Jones MD #2 [address] [facility] [address] [place] [address] Consulting Physician Orthopaedic Surgery 09/17/24 Toni Wood MD #[address] [facility] [address] [place] [address] Consulting Physician General Surgery 01/25/25 documented as of this encounter
--- OUTSIDE RECORDS SUMMARY | 2025-02-01 16:28 | XMS_ITS | Patient Health Record ---
Author Organization [employer] Address [address] [place] [address] Care Team Providers Care Dentistry Teacher Name Role Phone ARIANNEANDRESSA WORTHY Primary Care [...] moderate (F33.1) Active confirmed Problem Chronic pain (82147781) Other chronic pain (G89.29) Active confirmed Problem Fibromyalgia (041511249) Fibromyalgia (M79.7) Active confirmed Plan Of Treatment Pending Test Test Name Order Date X ray : Knee, right 01/17/2020 Urinalysis, Routine 12/31/2019 Insurance Providers Payer Name Payer Address Payer Phone Subscriber Number Group Number Insured Name Patient Relationship to Insured Coverage Start Date Coverage End Date [facility] [address] [address] [place] [address] [id number] ROBIN DOSS Self - patient is the [...]
--- OUTSIDE RECORDS SUMMARY | 2025-02-01 16:28 | XMS_ITS | Patient Health Record ---
Author Organization [facility] Farooq cunningham Billing Info Address [address] [place], [place] [address] [place] [address] Care Team Providers Care Substation Operator Automatic Name Role Phone URI HA [phone] Allergies Allergen (clinical drug ingredient) Drug/Non Drug [...] DIP STICK/TABLET REAGENT; AU TOMATED, W/O MICROSCOPY (34092) IH 08/20/2019 Insurance Providers Payer Name Payer Address Payer Phone Subscriber Number Group Number Insured Name Patient Relationship to Insured Coverage Start Date Coverage End Date A[employer] MEDICARE COMPLETE [facility] [address] [facility] [place] [phone] [id number] Katey Kim Self - patient is the insured 0 0 Medical (General) History Medical History History ICD Code breast cancer Arthritis fibromyalgia nerve damage Surgical History Surgery Date(Month/Year) gall bladder surgery wrist surgery foot surgery
--- OUTSIDE RECORDS SUMMARY | 2025-02-01 16:28 | XMS_ITS | Encounter Summary ---
Author Organization [facility] Address [address] [place] [address] Phone Care Team Providers Care Stone Sandblaster Name Role Phone Marvin Shaikh MD Unavailable John Paul Sharif MD Unavailable [phone] Joni Manning MD Unavailable Mark Bettencourt DO Unavailable [phone] Joni Ortega MD Primary Care Provider [phone] Gabrielle Jones MD Unavailable Toni Wood MD Unavailable Reason for Visit * Reason Comments Medication Refill Encounter Details Date Type Department Care Team (Late st Contact Info) Description 05/20/2023 Refill [facility] #[address] [place] [address] Joni Ortega MD #[address] [address] Medication Refill Social History Tobacco Use Types [...] Saadia Lan RN - 05/20/2023 1:34 PM NURSE EMERGENCY ROOM Override warning for duplicate therapy Per nursing [...] 12/01/22 Office Visit Heather Sosa APRN, JAYE [facility] 08/24/22 [facility] Showing recent visits within past 365 days and meeting all other requirements Future Appointments No visits were found meeting these conditions. Showing future appointments within next 90 days and meeting all other requirements E EMERGENCY ROOM documented in this encounter Plan of Treatment Upcoming Encounters Date Type Department Care Team (Late st Contact Info) Description 02/04/2025 1:00 PM CDT Office Visit [facility] Family Medicine - [place] #2 [place] [address] Marlee Moe APRN, BLOOD BANK SPECIALIST 2 [facility] [place] [address] documented as of this encounter Visit Diagnoses Not on filedocumented in this encounter Additional Health Concerns Assessment Noted Time PHQ-9 Depression Total Score: 14 023 10:00 AM CDT documented as of this encounter Care Teams Stone Sandblaster Relationship Specialty Start Date End Date Joni Ortega MD #[address] [facility] 205 [place] [address] PCP - General Family Medicine 12/26/20 Marvin Shaikh MD [address] [place] [address] Consulting Physician Oncology 07/22/17 John Paul Sharif MD 1 [facility] [address] [place] [address] Consulting Physician Orthopaedic Surgery 07/22/17 Joni Manning MD 4 [facility] [address] [place] [address] Consulting Physician Neurology 02/15/18 Mark Bettencourt DO 4 [facility] [address] [place] [address] Gastroenterology 06/07/18 Gabrielle Jones MD #[address] [facility] [address] [place] [address] Consulting Physician Orthopaedic Surgery 09/17/24 Toni Wood MD #2 [facility] [address] [place] [address] Consulting Physician General Surgery 01/25/25 documented as of this encounter
--- OUTSIDE RECORDS SUMMARY | 2025-02-01 16:28 | XMS_ITS | Encounter Summary ---
Author Organization [facility] Address [address] [place] [address] Phone Care Team Providers Care Novelty Twister Tender Name Role Phone Marvin Shaikh MD Unavailable John Paul Sharif MD Unavailable [phone] Joni Manning MD Unavailable Mark Bettencourt DO Unavailable [phone] Joni Ortega MD Primary Care Provider [phone] Gabrielle Jones MD Unavailable Toni Wood MD Unavailable Reason for Visit * Reason Onset Date Comments Referral 01/12/2023 External Orthope dic Referral Encounter Details Date Type Department Care Team (Late st Contact Info) Description 01/12/2023 Telephone [facility] [address] [place] [address] Joni Ortega MD #[address] [address] Referral (External Orthopedic Referral) Social History Tobacco [...] Ward - 01/12/2023 8:45 AM CDT SITUATION: [facility] Referral Services is requesting provider review [...] Visit [facility] Family Medicine [facility] #2 [place] [address] Marlee Moe, WELDING MACHINE OPERATOR HELPER [employer], GLEASON GEAR GENERATOR 2 [place] [address] documented as of this encounter Visit Diagnoses Not on filedocumented in this encounter Additional Health Concerns Assessment Noted Time PHQ-9 Depression Total Score: 14 023 10:00 AM CDT documented as of this encounter Care Teams Novelty Twister Tender Relationship Specialty Start Date End Date Joni Ortega MD #[address] [address] PCP - General Family Medicine 12/26/20 Marvin Shaikh MD [address] [place] [address] Consulting Physician Oncology 07/22/17 John Paul Sharif MD 1 [address] [place] [address] Consulting Physician Orthopaedic Surgery 07/22/17 Joni Manning MD 4 [facility] [address] [place] [address] Consulting Physician Neurology 02/15/18 Mark Bettencourt DO 4 [facility] [address] [place] [address] Gastroenterology 06/07/18 Gabrielle Jones MD #2 [address] [facility] [address] [place] [address] Consulting Physician Orthopaedic Surgery 09/17/24 Toni Wood MD #[address] [facility] [facility] [address] [place] [address] Consulting Physician General Surgery 01/25/25 documented as of this encounter
--- OUTSIDE RECORDS SUMMARY | 2025-02-01 16:28 | XMS_ITS | Encounter Summary ---
Author Organization [facility] Address [address] [place] [address] Phone Care Team Providers Care Diesel Inspector Name Role Phone Marvin Shaikh MD Unavailable John Paul Sharif MD Unavailable Joni Manning MD Unavailable Mark Bettencourt DO Unavailable [phone] Joni Ortega MD Primary Care Provider Gabrielle Jones MD Unavailable Toni Wood MD Unavailable Reason for Visit * Reason Onset Date Comments Referral 02/11/2021 Encounter Details Date Type Department Care Team (Late st Contact Info) Description 02/11/2021 Telephone [facility] [place] [facility] [place] [place] [address] Joni Ortega MD #[address] [address] Referral Social History Tobacco Use Types Packs/Day [...] get her the referral. Please call patient. [phone] documented in this encounter Plan of Treatment Upcoming Encounters Date Type Department Care Team (Late st Contact Info) Description 02/04/2025 1:00 PM CDT Office Visit [facility] - Family Medicine [facility] #2 [place] [address] Marlee Moe APRN, ASSISTANT ASSOCIATE FULL PROFESSOR 2 [place] [address] documented as of this encounter Visit Diagnoses Not on filedocumented in this encounter Additional Health Concerns Assessment Noted Time PHQ-9 Depression Total Score: 0 05/02/20 20 10:00 AM MAIL CENSOR documented as of this encounter Care Teams Diesel Inspector Relationship Specialty Start Date End Date Joni Ortega MD #2 [facility] 205 [place] [address] PCP - General Family Medicine 12/26/20 Marvin Shaikh MD [address] [place] [address] Consulting Physician Oncology 07/22/17 John Paul Sharif MD 1 [facility] 120 [place] [address] Consulting Physician Orthopaedic Surgery 07/22/17 Joni Manning MD [address] [facility] [address] [place] [address] Consulting Physician Neurology 02/15/18 Mark Bettencourt DO [address] [facility] [address] [place] [address] Gastroenterology 06/07/18 Gabrielle Jones MD #[address] [facility] [address] [place] [address] Consulting Physician Orthopaedic Surgery 09/17/24 Toni Wood MD #2 [facility] [address] [place] [address] Consulting Physician General Surgery 01/25/25 documented as of this encounter
--- OUTSIDE RECORDS SUMMARY | 2025-02-01 16:28 | XMS_ITS | Encounter Summary ---
Author Organization [facility] Address [address] [place] [address] Phone Care Team Providers Care Electronic Warfare Linguist Name Role Phone Marvin Shaikh MD Unavailable John Paul Sharif MD Unavailable [phone] Joni Manning MD Unavailable Joni Ortega MD Primary Care Provider Mark Bettencourt DO Unavailable [phone] Garrison Martinez MD Primary Care Provider Joni Ortega MD Primary Care Provider Gabrielle Jones MD Unavailable Toni Wood MD Unavailable Reason for Visit * Reason Onset Date Comments Other 07/10/2020 Encounter Details Date Type Department Care Team (Late st Contact Info) Description 07/10/2020 Telephone [facility] [address] [place] [address] Joni Ortega MD #[address] [address] Other Social History Tobacco Use Types Packs/Day [...] Anna Andres RN - 07/10/2020 11:21 AM HOG TRADER Patient calling stating that she has sinus infections every year and wants to know what medication she normally gets. Per review of chart last year she received Amoxicillin. Gave patient this information. Patient did not want to be triaged just wanted the information. She ended call. TRADER documented in this encounter Plan of Treatment Upcoming Encounters Date Type Department Care Team (Late st Contact Info) Description 02/04/2025 1:00 PM CDT Office Visit [facility] - Family [facility] #2 [place] [address] Marlee Moe, LABORATORY MECHANICAL TECHNICIAN, GROCERY STORE ASSOCIATE 2 [place] [address] documented as of this encounter Visit Diagnoses Not on filedocumented in this encounter Additional Health Concerns Assessment Noted Time PHQ-9 Depression Total Score: 0 05/02/20 20 10:00 AM HOG TRADER documented as of this encounter Care Teams Electronic Warfare Linguist Relationship Specialty Start Date End Date Joni Ortega MD #[address] [address] PCP - General Family Medicine 03/07/18 12/23/20 Garrison Martinez MD #[address] [address] PCP - General Family Medicine 12/24/20 12/25/20 Joni Ortega MD #[address] [facility] [address] [place] [address] PCP - General Family Medicine 12/26/20 Marvin Shaikh MD [address] [place] [address] Consulting Physician Oncology 07/22/17 John Paul Sharif MD 1 [facility] [address] [place] [address] Consulting Physician Orthopaedic Surgery 07/22/17 Joni Manning MD 4 [facility] # [address] [place] [address] Consulting Physician Neurology 02/15/18 Mark Bettencourt DO #[address] [address] Gastroenterology 06/07/18 Gabrielel Jones MD #2 [address] [address] Consulting Physician Orthopaedic Surgery 09/17/24 Toni Wood MD #[address] [address] Consulting Physician General Surgery 01/25/25 documented as of this encounter
--- OUTSIDE RECORDS SUMMARY | 2025-02-01 16:28 | XMS_ITS | Patient Health Record ---
Author Organization [facility] Address [address] [place] [address] Care Team Providers Care Wagon Driver Name Role Phone Vel Parra Primary Care Provider Reason For Referral No Information Encounters Encounter Location Date Provider Diagnosis [address] [place] [address] 12/13/2024 Vel Parra Plan Of Treatment No Information
--- OUTSIDE RECORDS SUMMARY | 2025-02-01 16:28 | XMS_ITS | Encounter Summary ---
Author Organization [facility] Address [address] [place] [address] Phone Care Team Providers Care Collections Rep Name Role Phone Marvin Shaikh MD Unavailable John Paul Sharif MD Unavailable Joni Manning MD Unavailable [phone] Joni Ortega MD Primary Care Provider Mark Bettencourt DO Unavailable [phone] Garrison Martinez MD Primary Care Provider Joni Ortega MD Primary Care Provider [phone] Gabrielle Jones MD Unavailable Toni Wood MD Unavailable Reason for Visit * Reason Onset Date Comments ED Follow-up 11/03/2020 [place] for right knee pain Results 11/03/2020 knee xray Encounter Details Date Type Department Care Team (Late st Contact Info) Description 11/03/2020 Telephone [facility] #[address] [address] Joni Ortega MD #[address] [address] ED Follow-up ([place] 11/01/20 for right knee pain); Results (knee [...] 1:54 PM CDT Patient calling. Was at [facility] ER on 11/01/20 for right [...] Visit [facility] - Family Medicine [facility] #2 [place] [address] Marlee Moe, CANCER GENETIC COUNSELOR, CEMETERY WARDEN 2 [place] [address] documented as of this encounter Visit Diagnoses Not on filedocumented in this encounter Additional Health Concerns Assessment Noted Time PHQ-9 Depression Total Score: 0 05/02/20 20 10:00 AM SHOVEL OPERATOR documented as of this encounter Care Teams Collections Rep Relationship Specialty Start Date End Date Joni Ortega MD #[address] [address] PCP - General Family Medicine 03/07/18 12/23/20 Garrison Martinez MD #[address] [address] PCP - General Family Medicine 12/24/20 12/25/20 Joni Ortega MD #[address] [address] PCP - General Family Medicine 12/26/20 Marvin Shaikh MD [address] [place] [address] Consulting Physician Oncology 07/22/17 John Paul Sharif MD 1 [address] [place] [address] Consulting Physician Orthopaedic Surgery 07/22/17 Joni Manning MD 4 [facility] # [address] [place] [address] Consulting Physician Neurology 02/15/18 Mark Bettencourt DO #[address] [address] Gastroenterology 06/07/18 Gabrielle Jones MD #[address] [address] Consulting Physician Orthopaedic Surgery 09/17/24 Toni Wood MD #[address] [facility] [address] [place] [address] Consulting Physician General Surgery 01/25/25 documented as of this encounter
[2025-02-01 16:31] VITALS: BP 147/79; PULSE 93; RESP 16; TEMP 36.6; O2SAT 98
--- OUTSIDE RECORDS SUMMARY | 2025-02-01 16:56 | XMS_ITS | Encounter Summary ---
Author Organization [facility] Address [address] [place] [address] Phone Care Team Providers Care Engineering Group Manager Name Role Phone Marvin Shaikh MD Unavailable John Paul Sharif MD Unavailable Joni Manning MD Unavailable [phone] Joni Ortega MD Primary Care Provider [phone] Mark Bettencourt DO Unavailable [phone] Garrison Martinez MD Primary Care Provider [phone] Joni Ortega MD Primary Care Provider Gabrielle Jnoes MD Unavailable Toni Wood MD Unavailable Reason for Visit * Reason Onset Date Comments Other 07/10/2020 Encounter Details Date Type Department Care Team (Late st Contact Info) Description 07/10/2020 Telephone [facility] [address] [place] [address] Joni Ortega MD #[address] [address] Other Social History Tobacco Use Types Packs/Day [...] Anna Andres RN - 07/10/2020 11:21 AM REMOTELY PILOTED VEHICLE CONTROLLER Patient calling stating that she has sinus infections every year and wants to know what medication she normally gets. Per review of chart last year she received Amoxicillin. Gave patient this information. Patient did not want to be triaged just wanted the information. She ended call. TELY PILOTED VEHICLE CONTROLLER documented in this encounter Plan of Treatment Upcoming Encounters Date Type Department Care Team (Late st Contact Info) Description 02/04/2025 1:00 PM CDT Office Visit [facility] - Family [facility] #2 [place] [address] Marlee Moe, OSTOMY RN, SENIOR INFORMATION DEVELOPER 2 [place] [address] documented as of this encounter Visit Diagnoses Not on filedocumented in this encounter Additional Health Concerns Assessment Noted Time PHQ-9 Depression Total Score: 0 05/02/20 20 10:00 AM REMOTELY PILOTED VEHICLE CONTROLLER documented as of this encounter Care Teams Engineering Group Manager Relationship Specialty Start Date End Date Joni Ortega MD #[address] [address] PCP - General Family Medicine 03/07/18 12/23/20 Garrison Martinez MD #[address] [address] PCP - General Family Medicine 12/24/20 12/25/20 Joni Ortega MD #[address] [facility] [address] [place] [address] PCP - General Family Medicine 12/26/20 Marvin Shaikh MD [address] [place] [address] Consulting Physician Oncology 07/22/17 John Paul Sharif MD 1 PROFESSIONAL [facility] [address] [place] [address] Consulting Physician Orthopaedic Surgery 07/22/17 Joni Manning MD 4 [facility] # [address] [place] [address] Consulting Physician Neurology 02/15/18 Mark Bettencourt DO #[address] [address] Gastroenterology 06/07/18 Gabrielle Jones MD #2 [address] [address] Consulting Physician Orthopaedic Surgery 09/17/24 Toni Wood MD #2 [address] [address] Consulting Physician General Surgery 01/25/25 documented as of this encounter
--- OUTSIDE RECORDS SUMMARY | 2025-02-01 16:56 | XMS_ITS | Encounter Summary ---
Author Organization [facility] Address [address] [place] [address] Phone Care Team Providers Care Paper Cutting Machine Operator Name Role Phone Marvin Shaikh MD Unavailable John Paul Sharif MD Unavailable Joni Manning MD Unavailable Mark Bettencourt DO Unavailable [phone] Joni Ortega MD Primary Care Provider [phone] Gabrielle Jones MD Unavailable Toni Wood MD Unavailable Reason for Visit * Reason Comments Medication Refill Encounter Details Date Type Department Care Team (Late st Contact Info) Description 2021 Refill [facility] [address] [place] [address] Joni Ortega MD #[address] [address] Medication Refill Social History Tobacco Use Types [...] Visit [facility] - Family [facility] [address] [place] [address] Marlee Moe, MANAGER REAL ESTATE, [employer]ODUCTION [employer] [address] [place] [address] documented as of this encounter Visit Diagnoses Diagnosis Anxiety Anxiety state, unspecified documented in this encounter Additional Health Concerns Assessment Noted Time PHQ-9 Depression Total Score: 0 11/12/19 22 12:00 PM CDT documented as of this encounter Care Teams Paper Cutting Machine Operator Relationship Specialty Start Date End Date Joni Ortega MD [address] [address] PCP - General Family Medicine 12/26/20 Marvin Shaikh MD [address] [place] [address] Consulting Physician Oncology 07/22/17 John Paul Sharif MD [address] [facility] [address] [place] [address] Consulting Physician Orthopaedic Surgery 07/22/17 Joni Manning MD [address] [facility] [address] [place] [address] Consulting Physician Neurology 02/15/18 Mark Bettencourt DO [address] [facility] [address] [place] [address] Gastroenterology 06/07/18 Gabrielle Jones MD #[address] [facility] [address] [place] [address] Consulting Physician Orthopaedic Surgery 09/17/24 Toni Wood MD #[address] [facility] [address] [place] [address] Consulting Physician General Surgery 01/25/25 documented as of this encounter
--- OUTSIDE RECORDS SUMMARY | 2025-02-01 16:56 | XMS_ITS | Encounter Summary ---
Author Organization [facility] Address [address] [place] [address] Phone Care Team Providers Care Utility Mechanic Supervisor Name Role Phone Marvin Shaikh MD Unavailable John Paul Sharif MD Unavailable Joni Manning MD Unavailable Mark Bettencourt DO Unavailable [phone] Joni Ortega MD Primary Care Provider Gabrielle Jones MD Unavailable Toni Wood MD Unavailable Encounter Details Date Type Department Care Team (Late st Contact Info) Description 08/23/2022 Telephone [facility] [address] [place] [address] Joni Ortega MD #[address] [address] Social History Tobacco Use Types Packs/Day Years [...] Coronavirus/COVID-19? No / Unsure 08/24/2022 12:21 PM AGRONOMY INSTRUCTOR documented as of this encounter Plan of Treatment Upcoming Encounters Date Type Department Care Team (Late st Contact Info) Description 02/04/2025 1:00 PM CDT Office Visit [facility] - Family Medicine [facility] [address] [place] [address] Marlee Moe, MARINE ENGINEERING TEACHER, CRUSHER SUPERVISOR [address] [facility] [place] [address] documented as of this encounter Visit Diagnoses Not on filedocumented in this encounter Additional Health Concerns Assessment Noted Time PHQ-9 Depression Total Score: 0 11/12/19 22 12:00 PM CDT documented as of this encounter Care Teams Utility Mechanic Supervisor Relationship Specialty Start Date End Date Joni Ortega MD [address] [facility] [address] [place] [address] PCP - General Family Medicine 12/26/20 Marvin Shaikh MD [address] [place] [address] Consulting Physician Oncology 07/22/17 John Paul Sharif MD [address] [place] [address] Consulting Physician Orthopaedic Surgery 07/22/17 Joni Manning MD 4 [facility] [address] [place] [address] Consulting Physician Neurology 02/15/18 Mark Bettencourt DO [address] [place] [address] [address] [place] [address] Gastroenterology 06/07/18 Gabrielle Jones MD #[address] [address] Consulting Physician Orthopaedic Surgery 09/17/24 Toni Wood MD #[address] [address] Consulting Physician General Surgery 01/25/25 documented as of this encounter
--- OUTSIDE RECORDS SUMMARY | 2025-02-01 16:56 | XMS_ITS | Clinical Summary ---
Author Organization [facility] Address [address], [address] [address] Phone Care Team Providers Care Senior Cost Estimator Name Role Phone Marvin Shaikh MD Unavailable [phone] John Paul Sharif MD Unavailable [phone] Joni Manning MD Unavailable Mark Bettencourt DO Unavailable [phone] Join Ortega MD Primary Care Provider [phone] Gabrielle Jones MD Unavailable Toni Wood MD Unavailable [phone] Allergies Active Allergy Reactions Criticality Noted Date [...] 01/24/2025 Telephone [facility] [address] [place] [phone] Joni Ortega MD Appointment 01/23/2025 Telephone [facility] [place] [address] Joni Ortega MD 01/23/2025 Telephone [facility] [place] [address] Joni Ortega MD Follow-up 01/18/2025 Telephone [facility] [address] [place] [phone] Joni Ortega MD Referral 01/17/2025 Refill [facility] [place] [address] Joni Ortega MD Medication Refill 01/14/2025 Telephone [facility] [address] [place] [phone] Joni Ortega MD Medication Management 01/11/2025 Telephone [facility] [address] [place] [phone] Joni Ortega MD Need Order 01/09/2025 Nurse Triage [facility] [address] [place] [phone] Joni Ortega MD Medication Problem 01/08/2025 10:30 AM CDT - 01/08/2025 1:05 PM CDT Emergency [facility] [address] [place] [address] Gavin Sims PAC Chronic low back pain Discharge Disposition: Discharged to home or Selfcare 01/08/2025 Travel 01/08/2025 Nurse Triage [facility] [address] [place] [phone] Joni Ortega MD Back Pain; Need Order 01/07/2025 Refill [facility] [place] [phone] Joni Ortega MD Medication Refill 01/03/2025 Nurse Triage [facility] [address] [place] [phone] Joni Ortega MD Advice Only; Nasal Congestion 01/02/2025 Telephone [facility] [address] [place] [phone] Joni Ortega MD Referral; Follow-up 01/01/2025 Nurse Triage [facility] [address] [place] [phone] Joni Ortega MD Yeast Infection; Follow-up 12/31/2024 Refill [facility] [address] [place] [phone] Joni Ortega MD Medication Refill 12/25/2024 Telephone [facility] [address] [place] [phone] Joni Ortega MD Referral (ortho) 12/24/2024 Nurse Triage [facility] [address] [place] [phone] Joni Ortega MD Yeast Infection 12/24/2024 Telephone [facility] [address] [place] [phone] Joni Ortega MD Advice Only 12/20/2024 Telephone [facility] [address] [place] [phone] Joni Ortega MD Post-Hospital Follow-up 12/13/2024 [facility] [place] [phone] Joni Ortega MD Advice Only 12/11/2024 1:15 PM CDT [facility] [place] [phone] Joni Ortega MD Uncomplicated opioid dependence (HCC) (Primary Dx); Chronic cough; Chronic midline thoracic back pain; Mild intermittent asthma without complication Discharge Disposition: Discharged to home or Selfcare 12/11/2024 Travel 12/10/2024 Telephone [facility] [address] [place] [phone] Joni Ortega MD Advice Only 12/10/2024 Telephone [facility] [address] [place] [phone] Joni Ortega MD Care Management; Appointment 2024 Refill [facility] [address] [place] [phone] Joni Ortega MD Medication Refill 11/27/2024 Refill [facility] [place] [phone] Joni Ortega MD Medication Refill 11/27/2024 Telephone [facility] [address] [place] [phone] Joni Ortega MD Discuss Test Result 11/27/2024 Telephone [facility] [address] [place] [phone] Joni Ortega MD Follow-up 11/23/2024 Telephone [facility] [address] [place] [phone] Joni Ortega MD Follow-up; Referral 11/22/2024 Telephone [facility] [address] [place] [phone] Joni Ortega MD Advice Only 11/16/2024 Telephone [facility] [place] [phone] Joni Ortega MD 11/16/2024 Results Follow-Up [facility] [place] [phone] Joni Ortega MD CMP (COMPREHENSIVE METABOLIC PANEL), THYROID STIMULATING HORMONE (TSH), ELECTROPHORESIS W/ TOTAL PROTEIN SERUM, Additional followed-up results: 2 11/15/2024 Telephone [facility] [place] [address] Joni Ortega MD Results 11/15/2024 Telephone [facility] [address] [place] [address] Joni Ortega MD Results 11/14/2024 Nurse Triage [facility] [place] [address] Joni Ortega MD Abdominal Pain 11/14/2024 Telephone [facility] [address] [place] [phone] Joni Ortega MD Medication Management 11/13/2024 3:59 PM CDT - 11/13/2024 11:59 PM CDT Hospital [facility] [address] [place] [address] Joni Ortega MD Discharge Disposition: Discharged to home or Selfcare 11/13/2024 3:30 PM CDT [facility] [place] [phone] Joni Ortega MD Dysuria (Primary Dx); Chronic cough; Weight loss; Chronic fatigue; Primary insomnia Discharge Disposition: Discharged to home or Selfcare 11/12/2024 11:15 AM CDT Office Visit [facility] Orthopedic Surgery [facility] [address] [place] [phone] Gabrielle Jones MD Primary osteoarthritis of left shoulder (Primary Dx); Nondisplaced fracture of lesser tuberosity of left humerus, subsequent encounter for fracture with routine healing Discharge Disposition: Discharged to home or Selfcare 11/12/2024 10:15 AM CDT - 11/12/2024 11:59 PM CDT Hospital Encounter [facility] Radiology [address] [place] [address] Gabrielle Jones MD Discharge Disposition: Discharged to home or Selfcare 11/12/2024 Travel 11/08/2024 Telephone [facility] [address] [place] [phone] Joni Ortega MD Results 11/08/2024 Telephone [facility] [place] [phone] Joni Ortega MD Results 11/07/2024 Telephone [facility] [place] [phone] Joni Ortega MD 11/06/2024 Nurse Triage [facility] [address] [place] [phone] Joni Ortega MD Insomnia 11/06/2024 Refill [facility] [place] [phone] Joni Ortega MD Medication Refill 11/05/2024 Nurse Triage [facility] [address] [place] [phone] Joni Ortega MD Urinary Problem from Last [...] Visit [facility] [address] [place] [phone] Marlee Moe, WATER TEAM LEADER, TRACK AND FIELD COACH [address] [place] [address] Health Maintenance Due Date Last Done Comments [...] - 1.030 01/08/2025 12:54 PM CDT [facility] URINE PH 6.0 5.0 - 9.0 01/08/2025 12:54 PM CDT [facility] WBC ESTERASE 100 /uL(A) Negative 01/08/2025 12:54 PM CDT [facility] NITRITE Negative Negative 01/08/2025 12:54 PM CDT [facility] PROTEIN, RANDOM URINE 30 mg/dL(A) Negative 01/08/2025 12:54 PM CDT [facility] URINE GLUCO[facility], QUAL Negative Negative 01/08/2025 12:54 PM CDT [facility] URINE KETONES Negative Negative 01/08/2025 12:54 PM CDT [facility] UROBILINOGEN Normal Normal mg/dL 01/08/2025 12:54 PM CDT [facility] URINE BLOOD 25 /uL(A) Negative steve/ul 01/08/2025 12:54 PM CDT [facility] URINALYSIS COLOR Yellow 01/09/20 12:54 PM CDT [facility] URINALYSIS CLARITY Slightly Cloudy 01/08/2025 12:54 PM CDT [facility] WBC (Urine) 0-5 Negative, 0-5 /hpf 01/08/2025 12:54 PM CDT [facility] URINE RBC'S 0-2 Negative, 0-2 /hpf 01/08/2025 12:54 PM CDT [facility] EPITHELIAL CELLS Large amount squamous /lpf 01/08/2025 12:54 PM CDT [facility] BACTERIA, URINE Moderate(A) Negative /hpf 01/08/2025 12:54 PM CDT [facility] Urine URINE SPECIMEN / Unknown Non-Phlebotomy Collection / Unknown 01/08/2025 11:50 AM CDT 01/08/2025 12:12 PM CDT us Gavin Sims PAC URINE ORDERABLES Fin al Result [facility] [place] [address] * CT LUMBAR SPINE WO CONTRAST (01/08/2025 [...] flavum hypertrophy. There is facet arthropathy with siux-aj-klrhomub right neural foraminal narrowing and moderate to [...] canal stenosis. There is facet arthropathy with mtkl-kv-pwxvsewy bilateral neural foraminal narrowing. L3-L4: There is [...] Daniel Bowen D.O. PS: MAGDI Report ID: [id number] Reading Location: [id number] Procedure Note Daniel Bowen DO - 01/08/2025 [...] flavum hypertrophy. There is facet arthropathy with wjyl-sm-osurutij right neural foraminal narrowing and moderate to [...] canal stenosis. There is facet arthropathy with oedb-sj-zgcwjjvx bilateral neural foraminal narrowing. L3-L4: There is [...] Daniel Bowen D.O. PS: MAGDI Report ID: [id number] Reading Location: [id number] IMPRESSION: 1. Mild osteopenia with minimal to [...] by Елена Fernandez M.D. AB: Report ID: [id number] Reading Location: [id number] Procedure Note Елена Fernandez MD - 11/14/2024 [...] by Елена Fernandez M.D. AB: Report ID: [id number] Reading Location: [id number] IMPRESSION: No acute cardiopulmonary abnormality. Joni Ortega MD IMG DIAGNOSTIC ORDERABLES Fin al Result * CBC WITH AUTO DIFFERENTIAL (11/13/2024 3:59 PM CDT) WBC 7.76 4.00 - 12.00 10(3)/mcL 11/13/2024 4:18 PM CDT [facility] RBC 4.96 3.80 - 5.30 10(6)/mcL 11/13/2024 4:18 PM CDT [facility] HEMOGLOBIN (HGB) 15.1 12.0 - 15.8 g/dL 11/13/2024 4:18 PM CDT [facility] HEMATOCRIT (HCT) 45.6 36.0 - 47.0 % 11/13/2024 4:18 PM CDT [facility] MCV 91.9 82.0 - 96.0 fL 11/13/2024 4:18 PM CDT [facility] MCH 30.4 26.0 - 34.0 pg 11/13/2024 4:18 PM CDT [facility] MCHC 33.1 31.0 - 36.0 g/dL 11/13/2024 4:18 PM CDT [facility] PLATELET COUNT 279 140 - 440 10(3)/mcL 11/13/2024 4:18 PM CDT [facility] RDW 13.4 11.8 - 15.5 % 11/13/2024 4:18 PM CDT [facility] MPV 10.1 9.7 - 12.4 fL 11/13/2024 4:18 PM CDT [facility] NEUTROPHILS 58.4 47.0 - 73.0 % 11/13/2024 4:18 PM CDT [facility] LYMPHOCYTES 29.9 18.0 - 42.0 % 11/13/2024 4:18 PM CDT [facility] MONOCYTES 8.0 4.0 - 12.0 % 11/13/2024 4:18 PM CDT [facility] EOSINOPHILS 2.7 0.0 - 5.0 % 11/13/2024 4:18 PM CDT [facility] BASOPHILS 1.0 0.0 - 1.0 % 11/13/2024 4:18 PM CDT [facility] ABSOLUTE NEUTROPHILS 4.53 1.60 - 7.70 10(3)/mcL 11/13/2024 4:18 PM CDT [facility] ABSOLUTE LYMPHOCYTES 2.32 1.30 - 3.20 10(3)/mcL 11/13/2024 4:18 PM CDT [facility] ABSOLUTE MONOCYTES 0.62 0.20 - 1.00 10(3)/mcL 11/13/2024 4:18 PM CDT [facility] ABSOLUTE EOSINOPHIL 0.21 0.00 - 0.40 10(3)/[facility] 11/13/2024 4:18 PM CDT [facility] ABSOLUTE BASOPHILS 0.08 0.00 - 0.10 10(3)/[facility] 11/13/2024 4:18 PM CDT [facility] NRBC PER 100 WBC 0 11/14/19 4:18 PM CDT [facility] Blood Venipuncture / Unknown 11/13/2024 3:59 PM CDT 11/13/2024 4:15 PM CDT Joni Ortega MD HEMATOLOGY ORDERABLES Final R esult Performing Organization Address [facility]/ZIP Co de Phone Number [facility] [address] [place] [address] * THYROID STIMULATING HORMONE (TSH) (11/13/2024 3:59 PM CDT) Pathologist [facility] TSH 0.512 0.300 - 5.000 mIU/L 11/13/2024 4:53 PM CDT [facility] Blood Venipuncture / Unknown 11/13/2024 3:59 PM CDT 11/13/2024 4:15 PM CDT Joni Ortega MD CHEMISTRY ORDERABLES Final Re sult Performing Organization Address [facility] Co de Phone Number [facility] [address] [place] [address] * (ABNORMAL) ELECTROPHORESIS W/ TOTAL PROTEIN SERUM (11/13/2024 3:59 PM CDT) [facility] TOTAL PROTEIN 6.8 6.0 - 8.0 g/dL 11/15/2024 11:[address] [facility] % ALBUMIN 57.2 55.8 - 66.7 % 11/15/2024 11:[address] [facility] ALBUMIN SERUM 3.9 2.5 - 5.4 g/dL 11/15/2024 11:[address] [facility] % ALPHA 1 GLOBULIN 4.3 2.9 - 4.9 % 11/15/2024 11:27 AM CDT [facility] ALPHA 1 0.3 0.2 - 0.4 g/dL 11/15/2024 11:[address] [facility] % ALPHA 2 GLOBULIN 13.0(H) 7.1 - 11.8 % 11/15/2024 11:27 AM CDT [facility] ALPHA 2 0.9 0.5 - 1.0 g/dL 11/15/2024 11:[address] [facility] % BETA 14.3(H) 8.4 - 13.1 % 11/15/2024 11:[address] [facility] BETA-GLOBULIN 1.0 0.5 - 1.1 g/dL 11/15/2024 11:[address] [facility] % GAMMA GLOBULIN 11.2 11.1 - 18.8 % 11/15/2024 11:[address] [facility] GAMMA 0.8 0.7 - 1.5 g/dL 11/15/2024 11:[address] [facility] SPE INTERPRETATION No abnormal protein band is detected by serum protein electrophore sis. Reviewed by Stefani Perez, Ph.D. [facility] 11/15/2024 11:[address] [facility] A/G RATIO, SERUM 1.3 11/16/19 11:[address] [facility] Blood Venipuncture / Unknown 11/13/2024 3:59 PM CDT 11/13/2024 4:[address] [facility] - 11/15/2024 11:27 AM CDT Reviewed by Abel Robin M.D. us Joni Ortega MD CHEMISTRY ORDERABLES Final Re sult Performing Organization Address [facility]/ZIP Co de Phone Number [facility] [address] [place] [address], [place] * CULTURE, URINE (11/13/2024 3:59 PM CDT) Only the most recent of2 resultswithin the time period is included. CULTURE RESULTS Mixed Growth of One or More Distal Urethral Contaminants 11/14/2024 10:[address] [facility] Culture URINE SPECIMEN OBTAINED BY CLEAN CATCH PROCEDURE / Unknown Non-Phlebotomy Collection / Unknown 11/13/2024 3:59 PM CDT 11/13/2024 4:15 PM CDT us Joni Ortega MD MICROBIOLOGY - GENERAL ORDERA BLES Final Result Performing Organization Address City/[facility]/ZIP Co de Phone Number [facility] [address] [place] [address], * (ABNORMAL) CMP (COMPREHENSIVE METABOLIC PANEL) (11/13/2024 3:59 PM CDT) SODIUM 136 136 - 145 mmol/L 11/13/2024 4:35 PM CDT [facility] POTASSIUM 4.1 3.5 - 5.1 mmol/L 11/13/2024 4:35 PM CDT [facility] CHLORIDE 103 98 - 107 mmol/L 11/13/2024 4:35 PM CDT [facility] CO2, VENOUS 24 22 - 30 mmol/L 11/13/2024 4:35 PM CDT [facility] ANION GAP 13.1 <18.0 mmol/L 11/13/2024 4:35 PM CDT [facility] GLUCOSE 121(H) 70 - 99 mg/dL 11/13/2024 4:35 PM CDT [facility] BUN 9(L) 10 - 20 mg/dL 11/13/2024 4:35 PM CDT [facility] CREATININE, BLOOD 1.00 0.60 - 1.00 mg/dL 11/13/2024 4:35 PM CDT [facility] BUN/CREATININE RATIO 9(L) 12 - 20 ratio 11/13/2024 4:35 PM CDT [facility] TOTAL PROTEIN 7.3 6.0 - 8.0 g/dL 11/13/2024 4:35 PM CDT [facility] ALBUMIN 4.6 3.5 - 5.0 g/dL 11/13/2024 4:35 PM CDT [facility] A/G RATIO 1.7 1.0 - 2.2 11/13/2024 4:35 PM CDT [facility] CALCIUM 9.9 8.7 - 10.5 mg/dL 11/13/2024 4:35 PM CDT [facility] T BILI 0.3 0.2 - 1.2 mg/dL 11/13/2024 4:35 PM CDT [facility] SGOT (AST) 22 <43 U/L 11/13/2024 4:35 PM CDT [facility] SGPT (ALT) 24 <56 U/L 11/13/2024 4:35 PM CDT [facility] ALKALINE PHOSPHATASE 99 40 - 150 U/L 11/13/2024 4:35 PM CDT [facility] IS THE PATIENT REQUIRED TO BE FASTING? No 11/13/2024 4:35 PM CDT [facility] GFR, ESTIMATED 59(L) >=60 11/13/2024 4:35 PM CDT [facility] Comment: Creatinine Clearance is the preferred criteria for selecting drug dose adjustments in renally impaired patients. The GFR is provided as additional pertinent clinical information. GFR is reported in mL/min/1.73 sq m. Calculation based on the Chronic Kidney Disease Epidemiology Collaboration (CKD- EPI) equation refit without adjustment for race. GFR, EST. >60 >=60 025 4:35 PM CDT [facility] GFR, EST. NONAFRICAN 54(L) >=60 11/13/2024 4:35 PM CDT [facility] Blood Venipuncture / Unknown 11/13/2024 3:59 PM CDT 11/13/2024 4:15 PM CDT Joni Ortega MD CHEMISTRY ORDERABLES Final Re sult [facility] [address] [place] [address] * XR SHOULDER COMPLETE LEFT (11/12/2024 10:32 [...] Елена Fernandez M.D. AB: AB Report ID: [id number] Reading Location: [id number] Procedure Note Елена Fernandez MD - 11/14/2024 [...] Елена Fernandez M.D. AB: AB Report ID: [id number] Reading Location: [id number] IMPRESSION: Degenerative changes without definite evidence of acute fracture. Gabrielle Jones MD IM DIAGNOSTIC ORDERABLES Final Result * (ABNORMAL) HEMOGLOBIN A1C W/ ESTIMATED GLUCOSE (09/13/2024 3:06 PM CDT) HGB-A1C 6.4(H) 4.0 - 6.0 % 09/13/2024 4:03 PM CDT [facility] Est Average Glucose 137.0 mg/dL 09/13/2024 4:03 PM CDT [facility] Blood Venipuncture / Unknown 09/13/2024 3:06 PM CDT 09/13/2024 3:46 PM CDT Narrative [facility] - 09/13/2024 4:03 PM CDT HEMOGLOBIN A1C: DIABETIC PATIENTS: WELL-CONTROLLED: 6.2 - 7.0 INTERMEDIATE WELL-CONTROLLED: 7.0 - 9.0 POORLY-CONTROLLED: >9.0 Specimens containing greater than 5% of Hemoglobin F may result in lower than expected % HbA1C results. Nawaf Mancilla MD CHEMISTRY ORDERABLES Amalia mccurdy Result [facility] [address] [place] [address] * HEPATITIS PANEL ACUTE (AHP) (02/23/2022 2:36 PM CDT) HEPATITIS A IGM ANTIBODY NON DETECTED NON DETECTED [facility] [id number] B 02/23/2022 10:[address] [facility] Comment: IGM Antibodies to HAV not detected. Does not exclude early acute or recovered HAV infection. HEP B CORE AB (IGM) NON DETECTED NON DETECTED [place] [id number] 02/23/2022 10:[address] [facility] Comment:IGM anti-HBC not det ected. Does not exclude the possibility of exposure to or infection with HBV. HEPATITIS B SURFACE ANTIGEN NON DETECTED NON DETECTED [place] [id number] 02/23/2022 10:[address] [facility] Comment:A nonreactive test r esult does not exclude the possibility of exposure to or infection with Hepatitis B virus. A nonreactive test result in individuals with prior exposure to hepatitis B may be due to antigen levels below the detection limit of this assay or lack of antigen reactivity to the antibodies in this assay. hepatitis C antibody 0.08 <1 S/CO [facility] [id number] 02/23/2022 10:[address] [facility] Comment: Signal/Cutoff ratio < 0.79 [...] Ortega MD HEMATOLOGY ORDERABLES Final R esult [facility] [address] [place] [address], * POCT STOOL, OCCULT BLOOD, DIAGNOSTIC (10/04/2018 8:50 AM CDT) OCCULT BLOOD, STOOL Negative Negative, Other POC HEMOCULT CONTROL Broach Operator Pass 10/04/2018 8:50 AM CDT Chantal Case APRN, TRACK AND FIELD COACH POINT OF CARE TESTIN G (MANUAL) Final [...] to exams dated: 12/25/2008, 05/29/2013, and 05/01/2008 [facility]. BREAST TISSUE: The tissue of both [...] signed by: Chrissy Carter M.D. pw/:11/29/2017 10:52:53 Mechanical Equipment Sales Engineer: Padma Rodriguez(Gil), [facility] Reading location: [facility] BI-RADS: 0 Additional Imaging Evaluation Needed [...] to exams dated: 12/25/2008, 05/29/2013, and 05/01/2008 [facility]. BREAST TISSUE: The tissue of both [...] signed by: Chrissy Carter M.D. pw/:11/29/2017 10:52:53 Mechanical Equipment Sales Engineer: Padma Rodriguez(Gil), [facility] Reading location: [facility] BI-RADS: 0 Additional Imaging Evaluation Needed us Hill Montano MD IMG MAMMO ORDERABLES Amalia l Result from Last 3 Months or Most Recently Relevant to Health Maintenance Insurance MEDICAID [place] MEDICARE C [facility] Advance Directives * Full Code (Latest Code Status on File) Date Activated Date Inactivated Comments 07/04/2016 4:32 PM 07/04/2016 11:21 PM CPR-Full Moriah tment: FULL ARREST: Attempt Resuscitation/CPR wit intubation and mechanical ventilation. PRE-ARREST: Use entire range of life support measures to stabilize the patient. Care Teams Senior Cost Estimator Relationship Specialty Start Date End Date Joni Ortega MD [address] [address] PCP - General Family Medicine 12/26/20 Marvin Shaikh MD [address] [place] [address] Consulting Physician Oncology 07/22/17 John Paul Sharif MD [address] [facility] [address] [place] [address] Consulting Physician Orthopaedic Surgery 07/22/17 Joni Manning MD [address] [facility] [address] [place] [address] Consulting Physician Neurology 02/15/18 Mark Bettencourt DO 4 [facility] [address] [place] [address] Gastroenterology 06/07/18 Gabrielle Jones MD [address] [facility] [address] [place] [address] Consulting Physician Orthopaedic Surgery 09/17/24 Toni Wood MD [address] [facility] [address] [place] [address] Consulting Physician General Surgery 01/25/25
--- OUTSIDE RECORDS SUMMARY | 2025-02-01 16:56 | XMS_ITS | Encounter Summary ---
Author Organization [facility] Address [address] [place] [address] Phone Care Team Providers Care Quality Control Director Name Role Phone Marvin Shaikh MD Unavailable [phone] John Paul Sharif MD Unavailable Joni Manning MD Unavailable [phone] Mark Bettencourt DO Unavailable [phone] Joni Ortega MD Primary Care Provider Gabrielle Jones MD Unavailable Toni Wood MD Unavailable [phone] Reason for Visit * Reason Comments Medication Refill Encounter Details Date Type Department Care Team (Late st Contact Info) Description 10/09/2024 Refill [facility] #2 [place] [address] Nawaf Mancilla MD #[address] [address] Medication Refill Social History Tobacco Use Types [...] Office Visit [facility] - Family [facility] [address] [address] Marlee Moe, ENDS BREAKAGE CLERK, COAL MINER [address] [place] [address] documented as of this encounter Visit Diagnoses Diagnosis Humeral head fracture, left, closed, initial encounter documented in this encounter Additional Health Concerns Assessment Noted Time PHQ-9 Depression Total Score: 0 09/14/19 25 2:00 PM CDT documented as of this encounter Care Teams Quality Control Director Relationship Specialty Start Date End Date Joni Ortega MD #[address] [facility] [address] [place] [address] PCP - General Family Medicine 12/26/20 Marvin Shaikh MD [address] [place] [address] Consulting Physician Oncology 07/22/17 John Paul Sharif MD [address] [place] [address] Consulting Physician Orthopaedic Surgery 07/22/17 Joni Manning MD 4 [facility] [address] [place] [address] Consulting Physician Neurology 02/15/18 Mark Bettencourt DO 4 [facility] [address] [place] [address] Gastroenterology 06/07/18 Gabrielle Jones MD [address] [address] Consulting Physician Orthopaedic Surgery 09/17/24 Toni Wood MD #[address] [address] Consulting Physician General Surgery 01/25/25 documented as of this encounter
--- OUTSIDE RECORDS SUMMARY | 2025-02-01 16:56 | XMS_ITS | Encounter Summary ---
Author Organization [facility] Address [address] [place] [address] Phone Care Team Providers Care Mobility Specialist Name Role Phone Marvin Shaikh MD Unavailable John Paul Sharif MD Unavailable Joni Manning MD Unavailable Mark Bettencourt DO Unavailable [phone] Joni Ortega MD Primary Care Provider Gabrielle Jones MD Unavailable Toni Wood MD Unavailable [phone] Reason for Visit * Reason Onset Date Comments Referral 02/11/2021 Encounter Details Date Type Department Care Team (Late st Contact Info) Description 02/11/2021 Telephone [facility] - [facility] [address] [place] [address] Joni Ortega MD [address] [address] Referral Social History Tobacco Use Types Packs/Day [...] get her the referral. Please call patient. [phone] documented in this encounter Plan of Treatment Upcoming Encounters Date Type Department Care Team (Late st Contact Info) Description 02/04/2025 1:00 PM CDT Office Visit [facility] - [facility] Medicine [facility] #2 [place] [address] Marlee Moe APRN, SUPERVISOR STAGE CARPENTRY 2 [place] [address] documented as of this encounter Visit Diagnoses Not on filedocumented in this encounter Additional Health Concerns Assessment Noted Time PHQ-9 Depression Total Score: 0 05/02/20 20 10:00 AM CHILD AND FAMILY THERAPIST documented as of this encounter Care Teams Mobility Specialist Relationship Specialty Start Date End Date Joni Ortega MD #2 [facility] [address] [place] [address] PCP - General Family Medicine 12/26/20 Marvin Shaikh MD [address] [place] [address] Consulting Physician Oncology 07/22/17 John Paul Sharif MD 1 [address] [facility] [address] [place] [address] Consulting Physician Orthopaedic Surgery 07/22/17 Joni Manning MD 4 [facility] [address] [place] [address] Consulting Physician Neurology 02/15/18 Mark Bettencourt DO 4 [facility] [address] [place] [address] Gastroenterology 06/07/18 Gabrielle Jones MD [address] [facility] [address] [place] [address] Consulting Physician Orthopaedic Surgery 09/17/24 Toni Wood MD [address] [facility] [address] [place] [address] Consulting Physician General Surgery 01/25/25 documented as of this encounter
--- OUTSIDE RECORDS SUMMARY | 2025-02-01 16:56 | XMS_ITS | Encounter Summary ---
Author Organization [facility] Address [address] [place] [address] Phone Care Team Providers Care Him Manager Name Role Phone Marvin Shaikh MD Unavailable John Paul Sharif MD Unavailable [phone] Joni Manning MD Unavailable [phone] Mark Bettencourt DO Unavailable [phone] Joni Ortega MD Primary Care Provider [phone] Gabrielle Jones MD Unavailable Toni Wood MD Unavailable Reason for Visit * Reason Comments Medication Refill Encounter Details Date Type Department Care Team (Late st Contact Info) Description 05/20/2023 Refill [facility] #[address] [place] [address] Joni Ortega MD #[address] [address] Medication Refill Social History Tobacco Use Types [...] Saadia Lan RN - 05/20/2023 1:34 PM LAMINATION OPERATOR Override warning for duplicate therapy Per [...] 08/24/22 Office Visit Heather Sosa APRN, [facility] Showing recent visits within past 365 days and meeting all other requirements Future Appointments No visits were found meeting these conditions. Showing future appointments within next 90 days and meeting all other requirements NATION OPERATOR documented in this encounter Plan of Treatment Upcoming Encounters Date Type Department Care Team (Late st Contact Info) Description 02/04/2025 1:00 PM CDT Office Visit [facility] - [place] #2 [place] [address] Marlee Moe APRN, ENGINEERING WRITER 2 [facility] [place] [address] documented as of this encounter Visit Diagnoses Not on filedocumented in this encounter Additional Health Concerns Assessment Noted Time PHQ-9 Depression Total Score: 14 023 10:00 AM CDT documented as of this encounter Care Teams Him Manager Relationship Specialty Start Date End Date Joni Ortega MD #[address] [facility] [address] [place] [address] PCP - General Family Medicine 12/26/20 Marvin Shaikh MD [address] [place] [address] Consulting Physician Oncology 07/22/17 John Paul Sharif MD [address] [facility] [address] [place] [address] Consulting Physician Orthopaedic Surgery 07/22/17 Joni Manning MD 4 [facility] [address] [place] [address] Consulting Physician Neurology 02/15/18 Mark Bettencourt DO 4 [facility] [address] [place] [address] Gastroenterology 06/07/18 Gabrielle Jones MD #[address] [facility] [address] [place] [address] Consulting Physician Orthopaedic Surgery 09/17/24 Toni Wood MD #[address] [facility] [address] [place] [address] Consulting Physician General Surgery 01/25/25 documented as of this encounter
--- OUTSIDE RECORDS SUMMARY | 2025-02-01 16:56 | XMS_ITS | Encounter Summary ---
Author Organization [facility] Address [address] [place] [address] Phone Care Team Providers Care Swing Driver Name Role Phone Marvin Shaikh MD Unavailable [phone] John Paul Sharif MD Unavailable Joni Manning MD Unavailable Joni Ortega MD Primary Care Provider Mark Bettencourt DO Unavailable [phone] Garrison Martinez MD Primary Care Provider Joni Ortega MD Primary Care Provider [phone] Gabrielle Jones MD Unavailable Toni Wood MD Unavailable Reason for Visit * Reason Onset Date Comments ED Follow-up 11/03/2020 inlet for right knee pain Results 11/03/2020 knee xray Encounter Details Date Type Department Care Team (Late st Contact Info) Description 11/03/2020 Telephone [facility] #[address] [address] Joni Ortega MD #[address] [address] ED Follow-up (inlet 11/01/20 for right knee pain); Results (knee [...] CDT Patient calling. Was at [facility] on 11/01/20 for right knee pain. [...] Visit [facility] - Family Medicine [facility] #2 [place] [address] Marlee Moe, CEMETERY WORKERS SUPERVISOR, GLASS FORMING ENGINEER 2 [place] [address] documented as of this encounter Visit Diagnoses Not on filedocumented in this encounter Additional Health Concerns Assessment Noted Time PHQ-9 Depression Total Score: 0 05/02/20 20 10:00 AM SALES ENABLEMENT LEAD documented as of this encounter Care Teams Swing Driver Relationship Specialty Start Date End Date Joni Ortega MD #[address] [address] PCP - General Family Medicine 03/07/18 12/23/20 Garrison Martinez MD #[address] [address] PCP - General Family Medicine 12/24/20 12/25/20 Joni Ortega MD #[address] [address] PCP - General Family Medicine 12/26/20 Marvin Shaikh MD [address] [place] [address] Consulting Physician Oncology 07/22/17 John Paul Sharif MD [address] [place] [address] Consulting Physician Orthopaedic Surgery 07/22/17 Joni Manning MD 4 [facility] [address] [place] [address] Consulting Physician Neurology 02/15/18 Mark Bettencourt DO #[address] [address] Gastroenterology 06/07/18 Gabrielle Jones MD #[address] [address] Consulting Physician Orthopaedic Surgery 09/17/24 Toni Wood MD #[address] [facility] [address] [place] [address] Consulting Physician General Surgery 01/25/25 documented as of this encounter
--- OUTSIDE RECORDS SUMMARY | 2025-02-01 16:56 | XMS_ITS | Encounter Summary ---
Author Organization [facility] Address [address] [place] [address] Phone Care Team Providers Care Tandem Mill Sticker Name Role Phone Marvin Shaikh MD Unavailable John Paul Sharif MD Unavailable [phone] Joni Manning MD Unavailable Mark Bettencourt DO Unavailable [phone] Joni Ortega MD Primary Care Provider Gabrielle Jones MD Unavailable Toni Wood MD Unavailable Reason for Visit * Reason Onset Date Comments Referral 01/12/2023 External Orthope dic Referral Encounter Details Date Type Department Care Team (Late st Contact Info) Description 01/12/2023 Telephone [facility] [address] [place] [address] Joni Ortega MD #[address] [address] Referral (External Orthopedic Referral) Social History Tobacco [...] Ward - 01/12/2023 8:45 AM CDT SITUATION: [facility] Referral Services is requesting provider review [...] Visit [facility] #2 [place] [address] Marlee Moe, SENIOR SVP, CABIN MAN 2 [place] [address] documented as of this encounter Visit Diagnoses Not on filedocumented in this encounter Additional Health Concerns Assessment Noted Time PHQ-9 Depression Total Score: 14 023 10:00 AM CDT documented as of this encounter Care Teams Tandem Mill Sticker Relationship Specialty Start Date End Date Joni Ortega MD #[address] [address] PCP - General Family Medicine 12/26/20 Marvin Shaikh MD [address] [place] [address] Consulting Physician Oncology 07/22/17 John Paul Sharif MD [address] [place] [address] Consulting Physician Orthopaedic Surgery 07/22/17 Joni Manning MD 4 [facility] [address] [place] [address] Consulting Physician Neurology 02/15/18 Mark Bettencourt DO 4 [facility] [address] [place] [address] Gastroenterology 06/07/18 Gabrielle Jones MD #[address] [facility] [address] [place] [address] Consulting Physician Orthopaedic Surgery 09/17/24 Toni Wood MD #[address] [facility] [address] [place] [address] Consulting Physician General Surgery 01/25/25 documented as of this encounter
--- NOTE | 2025-02-01 17:23 | ED_ITS ---
HPI - Extremity Injury (Lower) General Chief Complaint: Extremity Injury, Lower Stated Complaint: right knee pain Time Seen by Provider: 02/01/25 16:42 History of Present Illness HPI Narrative: Patient is a 74-year-old female who presents ER with right knee pain. She had a knee injection at orthopedics office couple months ago. She thinks they had her bone and she has developed infection. No swelling or fever redness. She continues to have pain or knee laterally. Related Data Home Medications ?Medication ?Instructions ?Recorded ?Confirmed ?Last Taken ?Type albuterol sulfate 90 mcg/actuation 2 puff inhalation QID PRN 06/22/19 01/06/24 Unknown History aerosol inhaler (ProAir HFA) Shortness of breath oxycodone-acetaminophen 10 mg-325 1 - 2 tablet PO Q4-6H PRN Pain, 06/22/19 01/06/24 11/15/23 06:00 History mg tablet Moderate amitriptyline 75 mg tablet 75 mg PO HS 12/29/21 01/06/24 11/14/23 19:00 History Allergies Allergy/AdvReac Type Severity Reaction Status Date / Time erythromycin base Allergy Unknown Hives Verified 02/01/25 16:35 tramadol Allergy Unknown Hives Verified 02/01/25 16:35 Sulfa (Sulfonamide AdvReac Nausea Verified 02/01/25 16:35 Antibiotics) Review of Systems Constitutional: Constitutional: Reports no additional constitutional comp laints Musculoskeletal: Musculoskeletal: Reports no additional musculoskeletal complaints PMFSH Past Medical History Medical History Asthma Tobacco abuse Chronic pain syndrome On long-term opioid therapy. Dyslipidemia Chronic obstructive pulmonary disease Transient ischemic attack (2020) Cancer of left breast Status post lumpectomy. Acute myeloid leukemia Fibromyalgia Anxiety Surgical History Surgical History History of incision and drainage Incision and drainage of complex left breast abscess 11/16/23 History of lumpectomy of left breast History of tonsillectomy History of cholecystectomy History of cataract extraction Family History Family History Other Unknown family medical history Social History Social History Social History: Surrogate medical decision maker: Lisa Barronak, friend. Code status: Full code. Smoking packs per day: 0.4 Smoking cigarettes per day: 8.0 Years smoked: 10 Smoking pack-years: 4.00 Smoking status: Current every day smoker Alcohol intake: former Alcohol use details: No recent alcohol use. Substance use: current Substance use type: marijuana and painkillers Do You Feel Safe in your Home?: Yes Lack of Transportation: No Lack of Food: Never True Current Housing: I Have Housing Concerned About Future Housing: No Difficulty Paying Gas/Electric Bills: No Difficulty Paying for Meds: No Currently Unemployed: No Education: Decline to Answer Difficulty w/ Childcare or Family Care: No Living arrangements: alone Additional living arrangements comments: . Lives in her own apartment in [place] with her [place] blue cat who is aptly named Blue. Spiritual care concerns: No Exam Narrative: GENERAL: Well-appearing, well-nourished, and in no acute distress. HEAD: Normocephalic, atraumatic. EXTREMITIES: Mild discomfort lateral joint line of the right knee but normal range of motion without effusion or erythema. Normal strength. SKIN: Warm, dry, no rash. NEURO: Alert and oriented x3. PSYCH: Normal mood and affect. Course Vital Signs Vital signs: Vital Signs Temperature 98 F 02/01/25 16:31 Pulse Rate 93 02/01/25 16:31 Respiratory Rate 16 02/01/25 16:31 Blood Pressure 147/79 H 02/01/25 16:31 Pulse Oximetry 98 02/01/25 16:31 Oxygen Delivery Room Air 02/01/25 16:31 Temperature 98 F 02/01/25 16:31 Pulse Rate 93 02/01/25 16:31 Respiratory Rate 16 02/01/25 16:31 Blood Pressure 147/79 H 02/01/25 16:31 Pulse Oximetry 98 02/01/25 16:31 Oxygen Delivery Room Air 02/01/25 16:31 MDM - Extremity Injury (Lower) Imaging Data Radiologist's impression: ITS Impressions Knee X-Ray 02/01/25 17:55 IMPRESSION: . Significant degenerative disease, with tendinosis of the lateral collateral ligament, as detailed above. No acute fracture. Discharge Plan Discharge Clinical Impression: Knee pain Patient Disposition: Home Condition: Stable Instructions: Antibiotic Form, Knee Pain (ED) Additional Instructions: Take Tylenol or ibuprofen as needed for pain. You may benefit from wearing a compressive knee brace for your discomfort. Follow-up with your orthopedic surgeon. Patient Language: German Prescriptions: No Action oxycodone-acetaminophen 10-325 mg Tablet 1 - 2 tablet PO Q4-6H PRN (Reason: Pain, Moderate) Patient Comments: Patient states she took her oxycodone / unknown time albuterol sulfate [ProAir HFA] 90 mcg/actuation Hfa Aerosol Inhaler 2 puff INHALATION QID PRN (Reason: Shortness of breath) doxycycline hyclate 100 mg Tablet 100 mg PO Q12HR Qty: 7 0RF amitriptyline 75 mg Tablet 75 mg PO HS Patient Comments: Patient states she took it this morning. AMS. Patient has had problems with this medication in the past. Follow-up/Referrals: Shannon,Joni Stewart MD [Primary Care Provider] - 1 Week
[2025-02-01] MEDS: HYDROcodone/acetaminophen (*CRX) 5-325 MG TABLET 1 TAB PO (18:06)
== END 2025-02-01 18:11 | disposition home or self-care (01) ==
PROVIDERS: Emergency Provider Emergency Medicine; PCP Internal Medicine
DX: M25.561 Pain in right knee (principal); E78.49 Other hyperlipidemia; J44.9 Chronic obstructive pulmonary disease, unspecified; Z86.73 Personal history of transient ischemic attack (TIA), and cerebral infarction without residual deficits; Z85.3 Personal history of malignant neoplasm of breast; Z85.6 Personal history of leukemia; F41.9 Anxiety disorder, unspecified; G89.29 Other chronic pain; Z79.891 Long term (current) use of opiate analgesic; F17.210 Nicotine dependence, cigarettes, uncomplicated
CPT/HCPCS: 73562; 99283; A9270

== ENCOUNTER 2025-02-14 10:05 | Emergency (ER) | payer MEDICARE, MEDICAID, SELFPAY ==
--- OUTSIDE RECORDS SUMMARY | 2024-12-18 04:00 | XMS_ITS ---
Author Organization [facility] Address [address] [place] [address] Care Team Providers Care Stump Blower Name Role Phone Vel Parra Primary Care Provider REASON FOR VISIT Detox Encounters Encounter Location Date Provider Diagnosis [address] [place] [address] 12/18/2024 Vel Parra Plan Of Treatment No Information Progress Notes * Katey GOMESDOB: [birth year] (74 yo F)Acc No.[id number]:12/18/2024 UNLOCKED PROGRESS NOTE Patient: Katey MTZ Provider: Lily Parra, MSN, SECURITY ESCORT, SENIOR LINUX ENGINEER-C :1950 A ge:74 Y S ex:Female Date:12/18/2024 Address:[address], [address], [facility] Subjective: * Chief Complaints: * 1 . Detox. * Medical History: Objective: * Vitals: Assessment: Plan: * Treatment: * * Electronic signature of Cheryle Parra APRN, [id number] on 02/14/2025 at 10:42 AM CDT Sign off status: Pending * Provider: Lily Parra, MSN, SECURITY ESCORT, SENIOR LINUX ENGINEER-C Date: 0 12/18/2024 Generated for Printi ng/Faxing/eTransmitting on: 0 02/14/2025 10:42 AM CDT
[2025-02-14 10:11] VITALS: BP 139/84; PULSE 82; RESP 17; TEMP 36.4; O2SAT 98
--- NOTE | 2025-02-14 10:20 | PC.NURSE ---
Pt declines wearing gown.
--- NOTE | 2025-02-14 10:37 | ED.ALLEREA ---
HPI - Allergic Reaction General Chief complaint: Allergic Reaction Stated complaint: bee sting not feeling well Time Seen by Provider: 02/14/25 10:36 Source: patient Mode of arrival: ambulatory Limitations: no limitations History of Present Illness HPI narrative: patient came to the ED complaining of her neck bite and sting to left breast and left neck prior to arrival more than 1 hour ago. Complaining of severe burning sensation and itching at the site of bites. She denies any trouble breathing or swallowing or hives or lightheadedness or headache. Related Data Home Medications ?Medication ?Instructions ?Recorded ?Confirmed ?Last Taken ?Type albuterol sulfate 90 mcg/actuation 2 puff inhalation QID PRN 06/22/19 01/06/24 Unknown History aerosol inhaler (ProAir HFA) Shortness of breath oxycodone-acetaminophen 10 mg-325 1 - 2 tablet PO Q4-6H PRN Pain, 06/22/19 01/06/24 11/15/23 06:00 History mg tablet Moderate amitriptyline 75 mg tablet 75 mg PO HS 12/29/21 01/06/24 11/14/23 19:00 History Allergies Allergy/AdvReac Type Severity Reaction Status Date / Time erythromycin base Allergy Unknown Hives Verified 02/14/25 10:18 tramadol Allergy Unknown Hives Verified 02/14/25 10:18 Sulfa (Sulfonamide AdvReac Nausea Verified 02/14/25 10:18 Antibiotics) Review of Systems Review of Systems: All systems reviewed & are unremarkable except as noted in HPI and below PMFSH Past Medical History Medical History Asthma Tobacco abuse Chronic pain syndrome On long-term opioid therapy. Dyslipidemia Chronic obstructive pulmonary disease Transient ischemic attack (2020) Cancer of left breast Status post lumpectomy. Acute myeloid leukemia Fibromyalgia Anxiety Surgical History Surgical History History of incision and drainage Incision and drainage of complex left breast abscess 11/16/23 History of lumpectomy of left breast History of tonsillectomy History of cholecystectomy History of cataract extraction Family History Family History Other Unknown family medical history Social History Social History Social History: Surrogate medical decision maker: Lisa Alvarado, friend. Code status: Full code. Smoking packs per day: 0.4 Smoking cigarettes per day: 8.0 Years smoked: 10 Smoking pack-years: 4.00 Smoking status: Current every day smoker Alcohol intake: former Alcohol use details: No recent alcohol use. Substance use: current Substance use type: marijuana and painkillers Do You Feel Safe in your Home?: Yes Lack of Transportation: No Lack of Food: Never True Current Housing: I Have Housing Concerned About Future Housing: No Difficulty Paying Gas/Electric Bills: No Difficulty Paying for Meds: No Currently Unemployed: No Education: Decline to Answer Difficulty w/ Childcare or Family Care: No Living arrangements: alone Additional living arrangements comments: . Lives in her own apartment in [place] with her Citizen Of [place] blue cat who is aptly named Blue. Spiritual care concerns: No Exam Narrative: General appearance: Well-developed, well-nourished Skin: Normal color , insect bite at left breast, no hives, no discharge, no blisters, no swelling Head: Normocephalic, nontraumatic Eyes: Clear conjunctiva ENT: Oropharynx normal, ears normal, nose normal Neck: Supple, nontender Chest and respiratory: Airway patent, no respiratory distress, no accessory muscle use Heart: Regular rate/rhythm Abdomen: Soft, nontender, no organomegaly, quiet bowel sounds Vascular: Normal peripheral pulses, normal capillary refill. Musculoskeletal: Normal range of motion, nontender back Neurologic: Alert and oriented ?3, PHYSICIAN ASSISTANT CERTIFIED is normal as tested, no gross motor deficit Course Vital Signs Vital signs: Vital Signs Temperature 36.4 C L 02/14/25 10:11 Pulse Rate 82 02/14/25 10:11 Respiratory Rate 17 02/14/25 10:11 Blood Pressure 139/84 02/14/25 10:11 Pulse Oximetry 98 02/14/25 10:11 Oxygen Delivery Room Air 02/14/25 10:11 Temperature 36.4 C L 02/14/25 10:11 Pulse Rate 82 02/14/25 10:11 Respiratory Rate 17 02/14/25 10:11 Blood Pressure 139/84 02/14/25 10:11 Pulse Oximetry 98 02/14/25 10:11 Oxygen Delivery Room Air 02/14/25 10:20 MDM - Allergic Reaction MDM Narrative Medical decision making narrative: insect bite with localized allergic reaction Patient received prednisone 60 mg p.o. and Zyrtec 10 mg p.o. prior to discharge Differential Diagnosis Differential diagnosis: Likely other ( as above) Critical Care Time Critical Care Time Critical Care Time: No Discharge Plan Discharge Clinical Impression: Insect bite Patient Disposition: Home Condition: Stable Instructions: Insect Bite or Sting (ED) Additional Instructions: Return if symptoms are worsening , call your family physician for appointment, take Tylenol as as needed for aches and pain, continue home medications. Patient Language: Cook Islander Prescriptions: New prednisone 20 mg tablet 40 mg PO BID Qty: 10 0RF cetirizine [Zyrtec] 10 mg tablet 10 mg PO DAILY PRN (Reason: allergy symptoms) Qty: 10 0RF No Action oxycodone-acetaminophen 10-325 mg Tablet 1 - 2 tablet PO Q4-6H PRN (Reason: Pain, Moderate) Patient Comments: Patient states she took her oxycodone 7/4 unknown time albuterol sulfate [ProAir HFA] 90 mcg/actuation Hfa Aerosol Inhaler 2 puff INHALATION QID PRN (Reason: Shortness of breath) doxycycline hyclate 100 mg Tablet 100 mg PO Q12HR Qty: 7 0RF amitriptyline 75 mg Tablet 75 mg PO HS Patient Comments: Patient states she took it this morning. AMS. Patient has had problems with this medication in the past. Follow-up/Referrals: Abdon Grant DO [Physician, Internal Medicine]
--- OUTSIDE RECORDS SUMMARY | 2025-02-14 10:43 | XMS_ITS | Patient Health Record ---
Author Organization [employer] Address [address] [place] [address] Care Team Providers Care Lead Slot Technician Name Role Phone ARIANNEANDRESSA WORTHY Primary Care [...] moderate (F33.1) Active confirmed Problem Chronic pain (01525863) Other chronic pain (G89.29) Active confirmed Problem Fibromyalgia (020534652) Fibromyalgia (M79.7) Active confirmed Plan Of Treatment Pending Test Test Name Order Date X ray : Knee, right 01/17/2020 Urinalysis, Routine 12/31/2019 Insurance Providers Payer Name Payer Address Payer Phone Subscriber Number Group Number Insured Name Patient Relationship to Insured Coverage Start Date Coverage End Date [facility] [address] [address] [place] [phone] [id number] ROBIN ODSS Self - patient is the insured 0 Medical (General) History Medical History History ICD Code Sleep Apnea: presumptive kwesi gnosis based on symptoms; Diverticulosis Fibromyalgia: dx'd in 2009; Fracture(s): left wrist; Scoliosis,Bone spurs tail bone Kusum Vesicolor AML CURRENT MEDICAL PROVIDERS:Onc[facility] degenerative [facility] disease Surgical History Surgery Date(Month/Year) Cholecystectomy: laparoscopic; uncomplic ated;
--- OUTSIDE RECORDS SUMMARY | 2025-02-14 10:43 | XMS_ITS | Patient Health Record ---
Author Organization [facility] Farooq cunningham Billing Info Address [address] [place], [place] [address] [place] [address] Care Team Providers Care Electric Meter Installer Name Role Phone URI HA [phone] Allergies Allergen (clinical drug ingredient) Drug/Non Drug [...] DIP STICK/TABLET REAGENT; AU TOMATED, W/O MICROSCOPY (04584) IH 08/20/2019 Insurance Providers Payer Name Payer Address Payer Phone Subscriber Number Group Number Insured Name Patient Relationship to Insured Coverage Start Date Coverage End Date A[employer] MEDICARE COMPLETE [facility] [address] [address] [facility] [place] [phone] [id number] Katey Kim Self - patient is the insured 0 0 Medical (General) History Medical History History ICD Code breast cancer Arthritis fibromyalgia nerve damage Surgical History Surgery Date(Month/Year) gall bladder surgery wrist surgery foot surgery
--- OUTSIDE RECORDS SUMMARY | 2025-02-14 10:43 | XMS_ITS | Encounter Summary ---
Author Organization [facility] Address [address] [place] [address] Phone Care Team Providers Care On Site Coordinator Name Role Phone Marvin Shaikh MD Unavailable [phone] John Paul Sharif MD Unavailable Joni Manning MD Unavailable [phone] Mark Bettencourt DO Unavailable [phone] Joni Ortega MD Primary Care Provider Gabrielle Jones MD Unavailable Toni Wood MD Unavailable Reason for Visit * Reason Comments Medication Refill Encounter Details Date Type Department Care Team (Late st Contact Info) Description 05/20/2023 Refill [facility] - Family Medicine [facility] [address] [place] [address] Joni Ortega MD #[address] [address] Medication Refill Social History Tobacco Use Types [...] Saadia Lan RN - 05/20/2023 1:34 PM DIRECTOR FINANCIAL PLANNING Override warning for duplicate therapy Per nursing [...] 12/01/22 Office Visit Heather Sosa APRN, JAYE Richardsoncristian Quintero 08/24/22 Office Visit [facility] Showing recent visits within past 365 days and meeting all other requirements Future Appointments No visits were found meeting these conditions. Showing future appointments within next 90 days and meeting all other requirements CTOR FINANCIAL PLANNING documented in this encounter Plan of Treatment Upcoming Encounters Date Type Department Care Team (Late st Contact Info) Description 05/15/2025 11:00 AM DIRECTOR FINANCIAL PLANNING [facility] Visit [facility] - [place] [address] [place] [address] Joni Ortega MD [address] [address] documented as of this encounter Visit Diagnoses Not on filedocumented in this encounter Additional Health Concerns Assessment Noted Time PHQ-9 Depression Total Score: 14 023 10:00 AM CDT documented as of this encounter Care Teams On Site Coordinator Relationship Specialty Start Date End Date Joni Ortega MD [address] [facility] [address] [place] [address] PCP - General Family Medicine 12/26/20 Marvin Shaikh MD [address] [place] [address] Consulting Physician Oncology 07/22/17 John Paul Sharif MD [address] [facility] [address] [place] [address] Consulting Physician Orthopaedic Surgery 07/22/17 Joni Manning MD [address] [facility] [address] [place] [address] Consulting Physician Neurology 02/15/18 Mark Bettencourt DO [address] [facility] [address] [place] [address] Gastroenterology 06/07/18 Gabrielle Jones MD #[address] [facility] [address] [place] [address] Consulting Physician Orthopaedic Surgery 09/17/24 Toni Wood MD #[address] [facility] [address] [place] [phone] Consulting Physician General Surgery 01/25/25 documented as of this encounter
--- OUTSIDE RECORDS SUMMARY | 2025-02-14 10:43 | XMS_ITS | Encounter Summary ---
Author Organization [facility] Address [address] [place] [address] Phone Care Team Providers Care Spring Coverer Name Role Phone Marvin Shaikh MD Unavailable John Paul Sharif MD Unavailable [phone] Joni Manning MD Unavailable Mark Bettencourt DO Unavailable [phone] Joni Ortega MD Primary Care Provider Gabrielle Jones MD Unavailable Toni Wodo MD Unavailable Encounter Details Date Type Department Care Team (Late st Contact Info) Description 08/23/2022 Telephone [facility] [address] [place] [address] Joni Ortega MD #[address] [address] Social History Tobacco Use Types Packs/Day Years [...] Coronavirus/COVID-19? 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 documented as of this encounter Plan of Treatment Upcoming Encounters Date Type Department Care Team (Late st Contact Info) Description 05/15/2025 11:00 AM POUNCING LATHE OPERATOR [facility] Visit [facility] [address] [place] [address] Joni Ortega MD #2 [facility] [place] [address] documented as of this encounter Visit Diagnoses Not on filedocumented in this encounter Additional Health Concerns Assessment Noted Time PHQ-9 Depression Total Score: 0 11/12/19 22 12:00 PM CDT documented as of this encounter Care Teams Spring Coverer Relationship Specialty Start Date End Date Joni Ortega MD #[address] [address] PCP - General Family Medicine 12/26/20 Marvin Shaikh MD [address] [place] [address] Consulting Physician Oncology 07/22/17 John Paul Sharif MD [address] [place] [address] Consulting Physician Orthopaedic Surgery 07/22/17 Joni Manning MD 4 [facility] [address] [place] [address] Consulting Physician Neurology 02/15/18 Mark Bettencourt DO [address] [place] [address] [address] [place] [address] Gastroenterology 06/07/18 Gabrielle Jones MD #[address] [address] Consulting Physician Orthopaedic Surgery 09/17/24 Toni Wood MD #[address] [id number] Consulting Physician General Surgery 01/25/25 documented as of this encounter
--- OUTSIDE RECORDS SUMMARY | 2025-02-14 10:43 | XMS_ITS | Encounter Summary ---
Author Organization [facility] Address [address] [place] [address] Phone Care Team Providers Care Youth Teacher Name Role Phone Marvin Shaikh MD Unavailable [phone] John Paul Sharif MD Unavailable Joni Manning MD Unavailable Mark Bettencourt DO Unavailable [phone] Joni Ortega MD Primary Care Provider [phone] Gabrielle Jones MD Unavailable Toni Wood MD Unavailable Reason for Visit * Reason Onset Date Comments Referral 02/11/2021 Encounter Details Date Type Department Care Team (Late st Contact Info) Description 02/11/2021 Telephone [facility] - [facility] #[address] [place] [address] Joni Ortega MD #[address] [address] Referral Social History Tobacco Use Types Packs/Day [...] get her the referral. Please call patient. [phone] documented in this encounter Plan of Treatment Upcoming Encounters Date Type Department Care Team (Late st Contact Info) Description 05/15/2025 11:00 AM LABEL DESIGNER Office Visit [facility] - Family Medicine [facility] [address] [place] [address] Joni Ortega MD [address] [address] documented as of this encounter Visit Diagnoses Not on filedocumented in this encounter Additional Health Concerns Assessment Noted Time PHQ-9 Depression Total Score: 0 05/02/20 20 10:00 AM LABEL DESIGNER documented as of this encounter Care Teams Youth Teacher Relationship Specialty Start Date End Date Joni Ortega MD #[address] [place] [address] PCP - General Family Medicine 12/26/20 Marvin Shaikh MD [address] [place] [address] Consulting Physician Oncology 07/22/17 John Paul Sharif MD [address] [facility] [address] [place] [address] Consulting Physician Orthopaedic Surgery 07/22/17 Joni Manning MD [address] [facility] [address] [place] [address] Consulting Physician Neurology 02/15/18 Mark Bettencourt DO 4 [facility] [address] [place] [address] Gastroenterology 06/07/18 Gabrielle Jones MD #[address] [facility] [address] [place] [address] Consulting Physician Orthopaedic Surgery 09/17/24 Toni Wood MD [address] [facility] [address] [place] [address] Consulting Physician General Surgery 01/25/25 documented as of this encounter
--- OUTSIDE RECORDS SUMMARY | 2025-02-14 10:43 | XMS_ITS | Encounter Summary ---
Author Organization [facility] Address [address] [place] [address] Phone Care Team Providers Care Valve Repairer Reclamation Name Role Phone Marvin Shaikh MD Unavailable John Paul Sharif MD Unavailable Joni Manning MD Unavailable Mark Bettencourt DO Unavailable [phone] Joni Ortega MD Primary Care Provider Gabrielle Jones MD Unavailable Toni Wood MD Unavailable [phone] Reason for Visit * Reason Comments Medication Refill Encounter Details Date Type Department Care Team (Late st Contact Info) Description 10/09/2024 Refill [facility] #2 [place] [address] Nawaf Mancilla MD #[address] [address] Medication Refill Social History Tobacco Use Types [...] st Contact Info) Description 05/15/2025 11:00 AM VOCATIONAL AIDE Office Visit [facility] - Family Medicine [facility] [address] [place] [address] Joni Ortega MD [facility]2 [facility] [place] [address] documented as of this encounter Visit Diagnoses Diagnosis Humeral head fracture, left, closed, initial encounter documented in this encounter Additional Health Concerns Assessment Noted Time PHQ-9 Depression Total Score: 0 09/14/19 25 2:00 PM CDT documented as of this encounter Care Teams Valve Repairer Reclamation Relationship Specialty Start Date End Date Joni Ortega MD [address] [facility] [place] [address] PCP - General Family Medicine 12/26/20 Marvin Shaikh MD [address] [place] [address] Consulting Physician Oncology 07/22/17 John Paul Sharif MD [address] [place] [address] Consulting Physician Orthopaedic Surgery 07/22/17 Joni Manning MD 4 [facility] [place] [address] [place] [address] Consulting Physician Neurology 02/15/18 Mark Bettencourt DO [address] [facility] [address] [place] [address] Gastroenterology 06/07/18 Gabrielle Jones MD [address] [address] Consulting Physician Orthopaedic Surgery 09/17/24 Toni Wood MD [address] [address] Consulting Physician General Surgery 01/25/25 documented as of this encounter
--- OUTSIDE RECORDS SUMMARY | 2025-02-14 10:43 | XMS_ITS | Clinical Summary ---
Author Organization [facility] Address [address], [address] [address] Phone Care Team Providers Care [employer] News Anchor Name Role Phone Marvin Shaikh MD Unavailable [phone] John Paul Sharif MD Unavailable [phone] Joni Manning MD Unavailable Mark Bettencourt DO Unavailable [phone] Joni Ortega MD Primary Care Provider [phone] Gabrielle Jones MD Unavailable Toni Wood MD Unavailable Allergies Active Allergy Reactions Criticality Noted Date Comments Bee Venom Anaphylaxis High 03/22/2017 BEE STINGS Duloxetine Hcl Hives,Diarrhea,Vomiting 05/09/20 20 Erythromycin Nausea 05/08/2015 Pregabalin Other (see Comments) 03/24/2018 Per patient suicidal Nitrofurantoin Unknown 08/24/2022 Sulfa Antibiotics Nausea 11/13/2024 Tramadol Nausea 05/08/2015 Medications albuterol 108 (90 Base) MCG/ACT Aerosol Solution take 2 Puffs by inhalation every 6 hours as needed for Wheezing. 8.5 g 10/31/19 25 Active Multiple Vitamin (MULTIVITAMIN S PO) Take by mouth. Activ e zolpidem (AMBIEN) 10 MG TabletIndicat ions:Primary insomnia Take 1 Tablet by mouth nightly as needed for Sleep. 30 Tablet 02/10/20 25 Active celecoxib (CeleBREX) 100 MG Capsule Take 100 mg by mouth 2 times daily. Active venlafaxine (EFFEXOR-XR) 37.5 MG CAPSULE SR 24 HRIndications :Anxiety,Survival Specialist srinath pain syndrome Take 1 Capsule by mouth daily. 90 Capsule 02/07/20 25 Active hydrOXYzine (ATARAX) 10 MG TabletIndicat ions:Anxiety Take 1 Tablet by mouth every 6 hours as needed for Anxiety for up to 30 days. 30 Tablet 02/07/20 25 025 Active Albuterol Sulfate (ProAir RespiClick) 108 (90 Base) MCG/ACT AEROSOL POWDER, BREATH ACTIVATED take 2 Puffs by inhalation 4 times daily as needed for Wheezing. 1 Each 12 11/19/19 23 025 Discontinued(M ed List Clean Up) tiZANidine (ZANAFLEX) 2 MG TabletIndicat ions:Humeral head fracture, left, closed, initial encounter Take 1 Tablet by mouth 3 times daily. 90 Tablet 11/28/19 025 Discontinued(M ed List Clean Up) oxyCODONE-Dhaval taminophen (PERCOCET) 10-325 MG Tablet TAKE 1 TO 2 TABLETS BY MOUTH EVERY 4 TO 6 HOURS NEEDED FOR PAIN, MAX DAILY DOSE: 4 12/06/19 25 025 Discontinued(M ed List Clean Up) ipratropium-a lbuterol (DUO-NEB) 0.5-2.5 (3) MG/3ML Solution 3 mL by Nebulization route 4 times daily for 30 days. 360 mL 12/12/19 25 025 Discontinued amoxicillin (AMOXIL) 875 MG Tablet Take 875 mg by mouth 2 times daily. 025 Discontinued(M ed List Clean Up) zolpidem (AMBIEN) 10 MG TabletIndicat ions:Primary insomnia Take 1 Tablet by mouth nightly as needed for Sleep. 30 Tablet 01/10/20 25 025 Discontinued(R eorder) ipratropium-a lbuterol (DUO-NEB) 0.5-2.5 (3) MG/3ML Solution INHALE 3 ML BY NEBULIZATION ROUTE 4 TIMES DAILY 360 mL 01/18/20 025 Discontinued(M ed List Clean Up) Active Problems Problem Noted Date Diagnosed Date COPD (chronic obstructive pu lmonary disease) with acute bronchitis 02/06/2025 Hyperglycemia 09/22/2024 Hematuria 09/13/2024 Humeral head fracture, [...] myeloid leukemia in remission 07/04/2016 Fibromyalgia 05/08/2015 Overview (02/06/2025): Patient states she has never been diagnosed with this. 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 07/22/2017 Diverticula of colon 05/08/2015 018 Mastitis 05/08/2015 07/22/2017 Encounters Date Type Department Care Team Description 02/07/2025 Telephone [facility] [address] [place] [phone] Joni Ortega MD Referral; Follow-up 02/06/2025 11:40 AM CDT Office Visit [facility] [address] [place] [address] Marlee Moe, PATTERN ATTENDANT, MUD ANALYSIS SUPERVISOR Anxiety (Primary Dx); Primary insomnia; Diet-controlled diabetes mellitus (HCC); Chronic pain syndrome; Arthritis; Chronic midline low back pain without sciatica; Other constipation; COPD (chronic obstructive pulmonary disease) with acute bronchitis (HCC) Discharge Disposition: Discharged to home or Selfcare 02/06/2025 Results Follow-Up [facility] [address] [place] [address] Marlee Moe, PATTERN ATTENDANT, MUD ANALYSIS SUPERVISOR POCT GLYCOSYLATED HEMOGLOBIN 02/06/2025 Travel 02/04/2025 Telephone [facility] [address] [place] [phone] Joni Ortega MD Appointment 01/24/2025 Telephone [facility] [address] [place] [phone] Joni Ortega MD Appointment 01/23/2025 [facility] [place] [address] Joni Ortega MD 01/23/2025 Telephone [facility] [address] [place] [address] Joni Orteag MD Follow-up 01/18/2025 Telephone [facility] [address] [place] [phone] Joni Ortega MD Referral 01/17/2025 Refill [facility] [address] [place] [address] Joni Ortega MD Medication Refill 01/14/2025 Telephone [facility] [address] [place] [phone] Joni Ortega MD Medication Management 01/11/2025 Telephone [facility] [address] [place] [phone] Joni Ortega MD Need Order 01/09/2025 Nurse Triage [facility] [address] [place] [phone] Joni Ortega MD Medication Problem 01/08/2025 10:30 AM CDT - 01/08/2025 1:05 PM CDT Emergency [facility] Emergency [address] [place] [address] Gavin Sims PAC Chronic low back pain Discharge Disposition: Discharged to home or Selfcare 01/08/2025 Travel 01/08/2025 Nurse Triage [facility] [address] [place] [phone] Joni Ortega MD Back Pain; Need Order 01/07/2025 Refill [facility] [address] [place] [address] Joni Ortega MD Medication Refill 01/03/2025 Nurse Triage [facility] [address] [place] [phone] Joni Ortega MD Advice Only; Nasal Congestion 01/02/2025 Telephone [facility] [address] [place] [phone] Joni Ortega MD Referral; Follow-up 01/01/2025 Nurse Triage [facility] [address] [place] [address] [phone] Joni Ortega MD Yeast Infection; Follow-up 12/31/2024 Refill [facility] [address] [place] [phone] Joni Ortega MD Medication Refill 12/25/2024 Telephone [facility] [address] [place] [phone] Joni Ortega MD Referral (ortho) 12/24/2024 [facility] Triage [facility] [address] [place] [address] [phone] Joni Ortega MD Yeast Infection 12/24/2024 Telephone [facility] [address] [place] [address] [phone] Joni Ortega MD Advice Only 12/20/2024 Telephone [facility] [address] [place] [address] [phone] Joni Ortega MD Post-Hospital Follow-up 12/13/2024 Nurse Triage [facility] [address] [place] [phone] Joni Ortega MD Advice Only 12/11/2024 1:15 PM CDT Office Visit [facility] [address] [place] [address] Joni Ortega MD Uncomplicated opioid dependence (HCC) (Primary Dx); Chronic cough; Chronic midline thoracic back pain; Mild intermittent asthma without complication Discharge Disposition: Discharged to home or Selfcare 12/11/2024 Travel 12/10/2024 Telephone [facility] [address] [place] [phone] Joni Ortega MD Advice Only 12/10/2024 Telephone [facility] [address] [place] [address] [phone] Joni Ortega MD Care Management; Appointment 2024 Refill [facility] [address] [place] [address] [phone] Joni Ortega MD Medication Refill 11/27/2024 Refill [facility] [address] [place] [phone] Joni Ortega MD Medication Refill 11/27/2024 Telephone [facility] [address] [place] [address] [phone] Joni Ortega MD Discuss Test Result 11/27/2024 Telephone [facility] [address] [place] [address] [phone] Joni Ortega MD Follow-up 11/23/2024 Telephone [facility] [address] [place] [address] [phone] Joni Ortega MD Follow-up; Referral 11/22/2024 Telephone [facility] [address] [place] [phone] Joni Ortega MD Advice Only 11/16/2024 Telephone [facility] [address] [place] [address] Joni Ortega MD 11/16/2024 Results Follow-Up [facility] [address] [place] [phone] Joni Ortega MD CMP (COMPREHENSIVE METABOLIC PANEL), THYROID STIMULATING HORMONE (TSH), ELECTROPHORESIS W/ TOTAL PROTEIN SERUM, Additional followed-up results: 2 11/15/2024 Telephone [facility] [address] [place] [phone] Joni Ortega MD Results 11/15/2024 Telephone [facility] [address] [place] [address] [phone] Joni Ortega MD Results 11/14/2024 Nurse Triage [facility] [address] [place] [address] Joni Ortega MD Abdominal Pain 11/14/2024 Telephone [facility] [address] [place] [address] [phone] Joni Ortega MD Medication Management from Last [...] Job Start Date Job End Date retired [employer] Not on file Not on file Not on file Last Filed Vital Signs Vital Sign Reading Time Taken Comments Blood Pressure 120/76 02/06/2025 11:00 AM CDT Pulse 70 02/06/2025 11:00 AM CDT Temperature 35.9 C (96.7 F) 02/06/2025 11:00 AM CDT Respiratory Rate 12 02/06/2025 11:00 AM CDT Oxygen Saturation 97% 02/06/2025 11:00 AM CDT Inhaled Oxygen Concentration - - Weight 72.2 kg (159 lb 1.6 oz) 02/06/2025 11:00 AM CDT Height 162.6 cm (5' 4) 02/06/2025 11:00 AM CDT Body Mass Index 27.31 02/06/2025 11:00 AM CDT Plan of Treatment Upcoming Encounters Date Type Department Care Team (Late st Contact Info) Description 05/15/2025 11:00 AM WOOD TURNING LATHE OPERATOR Office Visit [facility] [address] [place] [address] Joni Ortega MD [address] [address] Health Maintenance Due Date Last Done Comments [...] 11/29/2018 (Patient Temporarily Declines) Diabetes: Hemoglobin A1c 08/09/2025 025, 12/15/2024, 09/13/2024 Diabetes: Nephropathy Screening 11/13/2025 11/13/2024, 09/13/2024, 12/01/2022, [...] Procedure Name Priority Date/Time Associated Diagnosis Comments POCT GLYCOSYLATED HEMOGLOBIN Routine 02/06/2025 12:05 PM CDT Diet-controlled diabetes mellitus (HCC) XR - LOWER EXTREMITY 02/01/2025 12:00 AM CDT URINALYSIS (UA) RANDOM 01/24/2025 12:00 AM CDT URINALYSIS REFLEX IF INDICATED BY ABNORMAL RESULTS STAT 01/08/2025 11:[address] LUMBAR SPINE WO CONTRAST Stat with Interpretation 01/08/2025 11:13 AM CDT CMP (COMPREHENSIVE METABOLIC PANEL) Today 11/13/2024 3:59 PM CDT Chronic cough Weight loss HEPATITIS PANEL ACUTE (AHP) Routine 02/23/2022 2:36 PM CDT Sweating profusely POCT STOOL, OCCULT BLOOD, DIAGNOSTIC Routine 10/04/2018 8:50 AM CDT Diarrhea in adult patient Bright red stool LIZZETH DIAG BILATERAL DIGITAL W CAD W ARTIS Routine 11/29/2017 10:24 AM CDT Bilateral nipple discharge Breast pain, left from Last 3 Months or Most Recently Relevant to Health Maintenance Results * (ABNORMAL) POCT GLYCOSYLATED HEMOGLOBIN (02/06/2025 12:05 PM CDT) HGB-A1C 6.5(A) 4 - 6 % 02/06/2025 12:0 5 PM CDT us Marlee Moe APRN, MUD ANALYSIS SUPERVISOR POINT OF CARE TESTING (MANUAL) Final Result * XR - LOWER EXTREMITY (02/01/2025 12:00 AM CDT) 02/01/2025 us Provider Scan IMG DIAGNOSTIC ORDERABLES Final Result SCAN * URINALYSIS (UA) RANDOM (01/24/2025 12:00 AM CDT) 01/24/2025 us Provider Scan URINE ORDERABLES Final Result SCAN * (ABNORMAL) Urinalysis w/ Reflex (01/08/2025 11:50 AM CDT) SPECIFIC GRAVITY 1.015 1.003 - 1.030 01/08/2025 12:54 PM CDT [facility] URINE PH 6.0 5.0 - 9.0 01/08/2025 12:54 PM CDT [facility] WBC ESTERASE 100 /uL(A) Negative 01/08/2025 12:54 PM CDT [facility] NITRITE Negative Negative 01/08/2025 12:54 PM CDT [facility] PROTEIN, RANDOM URINE 30 mg/dL(A) Negative 01/08/2025 12:54 PM CDT [facility] URINE GLUCOSE, QUAL Negative Negative 01/08/2025 12:54 PM CDT [facility] URINE KETONES Negative Negative 01/08/2025 12:54 PM CDT [facility] UROBILINOGEN Normal Normal mg/dL 01/08/2025 12:54 PM CDT [facility] URINE BLOOD 25 /uL(A) Negative steve/ul 01/08/2025 12:54 PM CDT [facility] URINALYSIS COLOR Yellow 01/09/20 25 12:54 PM CDT [facility] URINALYSIS CLARITY Slightly Cloudy 01/08/2025 12:54 PM CDT [facility] WBC (Urine) 0-5 Negative, 0-5 /hpf 01/08/2025 12:54 PM CDT [facility] URINE RBC'S 0-2 Negative, 0-2 /hpf 01/08/2025 12:54 PM CDT [facility] EPITHELIAL CELLS Large amount squamous /lpf 01/08/2025 12:54 PM CDT [facility] BACTERIA, URINE Moderate(A) Negative /hpf 01/08/2025 12:54 PM CDT [facility] Urine URINE SPECIMEN / Unknown Non-Phlebotomy Collection / Unknown 01/08/2025 11:50 AM CDT 01/08/2025 12:12 PM CDT us Gavin Sims PAC URINE ORDERABLES Fin al Result [facility] [address] [place] [address] * CT LUMBAR SPINE WO CONTRAST (01/08/2025 [...] flavum hypertrophy. There is facet arthropathy with wsbh-fl-bssqbvac right neural foraminal narrowing and moderate to [...] canal stenosis. There is facet arthropathy with ywqa-lf-amyderox bilateral neural foraminal narrowing. L3-L4: There is [...] Daniel Bowen D.O. PS: MAGDI Report ID: [id number] Reading Location: [id number] Procedure Note Daniel Bowen, DO - 01/08/2025 EXAM DESCRIPTION: CT LUMBAR [...] flavum hypertrophy. There is facet arthropathy with auvp-ny-rmlmjcav right neural foraminal narrowing and moderate to [...] canal stenosis. There is facet arthropathy with asbv-my-zqoagbtz bilateral neural foraminal narrowing. L3-L4: There is [...] Daniel Bowen D.O. PS: PS Report ID: [id number] Reading Location: [place] [address] IMPRESSION: 1. Mild osteopenia with minimal to [...] Punctate bilateral nonobstructing renal calculi. Gavin Sims [facility] IMG CT ORDERABLES Fi nal Result * (ABNORMAL) CMP (COMPREHENSIVE METABOLIC PANEL) (11/13/2024 3:59 PM CDT) SODIUM 136 136 - 145 mmol/L 11/13/2024 4:35 PM CDT [facility] POTASSIUM 4.1 3.5 - 5.1 mmol/L 11/13/2024 4:35 PM CDT [facility] CHLORIDE 103 98 - 107 mmol/L 11/13/2024 4:35 PM CDT [facility] CO2, VENOUS 24 22 - 30 mmol/L 11/13/2024 4:35 PM CDT [facility] ANION GAP 13.1 <18.0 mmol/L 11/13/2024 4:35 PM CDT [facility] GLUCOSE 121(H) 70 - 99 mg/dL 11/13/2024 4:35 PM CDT [facility] BUN 9(L) 10 - 20 mg/dL 11/13/2024 4:35 PM CDT [facility] CREATININE, BLOOD 1.00 0.60 - 1.00 mg/dL 11/13/2024 4:35 PM CDT [facility] BUN/CREATININE RATIO 9(L) 12 - 20 ratio 11/13/2024 4:35 PM CDT [facility] TOTAL PROTEIN 7.3 6.0 - 8.0 g/dL 11/13/2024 4:35 PM CDT [facility] ALBUMIN 4.6 3.5 - 5.0 g/dL 11/13/2024 4:35 PM CDT [facility] A/G RATIO 1.7 1.0 - 2.2 11/13/2024 4:35 PM CDT [facility] CALCIUM 9.9 8.7 - 10.5 mg/dL 11/13/2024 4:35 PM CDT [facility] T BILI 0.3 0.2 - 1.2 mg/dL 11/13/2024 4:35 PM CDT [facility] SGOT (AST) 22 <43 U/L 11/13/2024 4:35 PM CDT [facility] SGPT (ALT) 24 <56 U/L 11/13/2024 4:35 PM CDT [facility] ALKALINE PHOSPHATASE 99 40 - 150 U/L 11/13/2024 4:35 PM CDT [facility] IS THE PATIENT REQUIRED TO BE FASTING? No 11/13/2024 4:35 PM CDT [facility] GFR, ESTIMATED 59(L) >=60 11/13/2024 4:35 PM CDT [facility] Comment: Creatinine Clearance is the preferred criteria for selecting drug dose adjustments in renally impaired patients. The GFR is provided as additional pertinent clinical information. GFR is reported in mL/min/1.73 sq m. Calculation based on the Chronic Kidney Disease Epidemiology Collaboration (CKD- EPI) equation refit without adjustment for race. GFR, EST. >60 >=60 025 4:35 PM CDT [facility] GFR, EST. NONAFRICAN 54(L) >=60 11/13/2024 4:35 PM CDT [facility] Blood Venipuncture / Unknown 11/13/2024 3:59 PM CDT 11/13/2024 4:15 PM CDT us Joni Ortega MD CHEMISTRY ORDERABLES Final Re sult [facility] [address] [place] [address] * HEPATITIS PANEL ACUTE (AHP) (02/23/2022 2:36 PM CDT) HEPATITIS A IGM ANTIBODY NON DETECTED NON DETECTED [facility] ARCH [id number] 02/23/2022 10:26 PM CDT [facility] Comment: IGM Antibodies to HAV not detected. Does not exclude early acute or recovered HAV infection. HEP B CORE AB (IGM) NON DETECTED NON DETECTED [facility] ARCH [id number] B 02/23/2022 10:26 PM CDT [facility] Comment:IGM anti-HBC not det ected. Does not exclude the possibility of exposure to or infection with HBV. HEPATITIS B SURFACE ANTIGEN NON DETECTED NON DETECTED [facility] ARCH [id number] B 02/23/2022 10:26 PM CDT [facility] Comment:A nonreactive test r esult does not exclude the possibility of exposure to or infection with Hepatitis B virus. A nonreactive test result in individuals with prior exposure to hepatitis B may be due to antigen levels below the detection limit of this assay or lack of antigen reactivity to the antibodies in this assay. hepatitis C antibody 0.08 <1 S/[facility] [id number] B 02/23/2022 10:26 PM CDT [facility] Comment: Signal/Cutoff ratio < 0.79 is Nondetected Signal/Cutoff ratio 0.80-0.99 is Grayzone Signal/Cutoff ratio > 0.99 is Detected Supplemental assays are recommended if signal/cutoff ratio is >/=1.00. Signal/cutoff ratio result >/= 5.00 is 97% predictive of positivity for recombinant immunoblot assay (RIBA) and will be reported to the [place] Department of Public Health as required. Blood Venipuncture / Unknown 02/23/2022 2:36 PM CDT 02/23/2022 2:36 PM CDT us Joni Ortega MD HEMATOLOGY ORDERABLES Final R esult [facility] [address] [place] [address], [place] * POCT STOOL, OCCULT BLOOD, DIAGNOSTIC (10/04/2018 8:50 AM CDT) OCCULT BLOOD, STOOL Negative Negative, Other POC HEMOCULT CONTROL Envelope Adjuster Pass 10/04/2018 8:50 AM CDT Chantal Case APRN, MUD ANALYSIS SUPERVISOR POINT OF CARE TESTIN G (MANUAL) Final [...] to exams dated: 12/25/2008, 05/29/2013, and 05/01/2008 [facility]. BREAST TISSUE: The tissue of both breasts [...] signed by: Chrissy Carter M.D. pw/:11/29/2017 10:52:53 Assistant Passenger Locomotive Engineer: Padma Rodriguez(Gil), [facility] Reading location: [facility] BI-RADS: 0 Additional Imaging Evaluation Needed [...] to exams dated: 12/25/2008, 05/29/2013, and 05/01/2008 [facility]. BREAST TISSUE: The tissue of both breasts [...] signed by: Chrissy Carter M.D. pw/:11/29/2017 10:52:53 Assistant Passenger Locomotive Engineer: Padma Rodriguez(R), [facility] Reading location: [facility] BI-RADS: 0 Additional Imaging Evaluation Needed us Hill Montano MD IMG MAMMO ORDERABLES Amalia l Result from Last 3 Months or Most Recently Relevant to Health Maintenance Insurance MEDICAID [place] MEDICARE C [employer] Advance Directives * Full Code (Latest Code Status on File) Date Activated Date Inactivated Comments 07/04/2016 4:32 PM 07/04/2016 11:21 PM CPR-Full Moriah tment: FULL ARREST: Attempt Resuscitation/CPR wit intubation and mechanical ventilation. PRE-ARREST: Use entire range of life support measures to stabilize the patient. Care Teams [employer] Anchor Relationship Specialty Start Date End Date Joni Ortega MD [address] [facility] [address] [place] [address] PCP - General Family Medicine 12/26/20 Marvin Shaikh MD [address] [place] [address] Consulting Physician Oncology 07/22/17 John Paul Sharif MD [address] [facility] [address] [place] [address] Consulting Physician Orthopaedic Surgery 07/22/17 Joni Manning MD [address] [facility] [address] [place] [address] Consulting Physician Neurology 02/15/18 Mark Bettencourt DO [address] [place] [address] [address] [place] [address] Gastroenterology 06/07/18 Gabrielle Jones MD [address] [facility] [address] [place] [address] Consulting Physician Orthopaedic Surgery 09/17/24 Toni Wood MD [address] [facility] [address] [place] [address] Consulting Physician General Surgery 01/25/25
--- OUTSIDE RECORDS SUMMARY | 2025-02-14 10:43 | XMS_ITS | Encounter Summary ---
Author Organization [facility] Address [address] [place] [address] Phone Care Team Providers Care Principal Developer Name Role Phone Marvin Shaikh MD Unavailable [phone] John Paul Sharif MD Unavailable Joni Manning MD Unavailable [phone] Joni Ortega MD Primary Care Provider [phone] Mark Bettencourt DO Unavailable [phone] Garrison Martinez MD Primary Care Provider [phone] Joni Ortega MD Primary Care Provider Gabrielle Jones MD Unavailable Toni Wood MD Unavailable Reason for Visit * Reason Onset Date Comments Other 07/10/2020 Encounter Details Date Type Department Care Team (Late st Contact Info) Description 07/10/2020 Telephone [facility] [address] [place] [address] Joni Ortega MD #[address] [address] Other Social History Tobacco Use Types Packs/Day [...] Anna Andres RN - 07/10/2020 11:21 AM HALAL BUTCHER Patient calling stating that she has sinus infections every year and wants to know what medication she normally gets. Per review of chart last year she received Amoxicillin. Gave patient this information. Patient did not want to be triaged just wanted the information. She ended call. L BUTCHER documented in this encounter Plan of Treatment Upcoming Encounters Date Type Department Care Team (Late st Contact Info) Description 05/15/2025 11:00 AM HALAL BUTCHER Office Visit [facility] #2 [place] [address] Joni Ortega MD #[address] [address] documented as of this encounter Visit Diagnoses Not on filedocumented in this encounter Additional Health Concerns Assessment Noted Time PHQ-9 Depression Total Score: 0 05/02/20 20 10:00 AM HALAL BUTCHER documented as of this encounter Care Teams Principal Developer Relationship Specialty Start Date End Date Joni Ortega MD #[address] [address] PCP - General Family Medicine 03/07/18 12/23/20 Garrison Martinez MD #[address] [address] PCP - General Family Medicine 12/24/20 12/25/20 Joni Ortega MD #[address] [facility] [address] [place] [address] PCP - General Family Medicine 12/26/20 Marvin Shaikh MD [address] [place] [address] Consulting Physician Oncology 07/22/17 John Paul Sharif MD 1 [facility] [address] [place] [address] Consulting Physician Orthopaedic Surgery 07/22/17 Joni Manning MD 4 [facility] # [address] [place] [address] Consulting Physician Neurology 02/15/18 Mark Bettencourt DO #2 [address] [address] Gastroenterology 06/07/18 Gabrielle Jones MD #2 [address] [facility] [address] [place] [address] Consulting Physician Orthopaedic Surgery 09/17/24 Toni Wood MD #2 [address] [facility] [address] [place] [address] Consulting Physician General Surgery 01/25/25 documented as of this encounter
--- OUTSIDE RECORDS SUMMARY | 2025-02-14 10:43 | XMS_ITS | Encounter Summary ---
Author Organization [facility] Address [address] [place] [address] Phone Care Team Providers Care Desktop Analyst Name Role Phone Marvin Shaikh MD Unavailable John Paul Sharif MD Unavailable [phone] Joni Manning MD Unavailable [phone] Mark Bettencourt DO Unavailable [phone] Joni Ortega MD Primary Care Provider Gabrielle Jones MD Unavailable Toni Wood MD Unavailable Encounter Details Date Type Department Care Team (Late st Contact Info) Description 02/06/2025 Results Follow-Up [facility] Medical Group - Family Medicine [facility] #2 [place] [address] Marlee Moe, STEAM PLANT CONTROL ROOM OPERATOR, DIRECTOR OF CARDIOPULMONARY SERVICES 2 [place] [address] POCT GLYCOSYLATED HEMOGLOBIN Social History Tobacco Use Types Packs/Day Years Used Date Smoking Tobacco: Never Smokeless Tobacco: Never Alcohol Use Standard Drinks/Week Comments No 0 (1 standard drink = 0.6 oz pur e alcohol) PHQ-2 Answer Date Recorded Total Score - Questions 1-9 0 05/2 Sexually Active Control Partners Comments Never Comments [...] st Contact Info) Description 05/15/2025 11:00 AM ACCOUNTS RECEIVABLE BOOKKEEPER Office Visit [facility] - Family Medicine - [place] #[address] [place] [address] Joni Ortega MD #[address] [address] documented as of this encounter Visit Diagnoses Not on filedocumented in this encounter Additional Health Concerns Assessment Noted Time PHQ-9 Depression Total Score: 0 11/14/19 25 6:12 PM CDT documented as of this encounter Care Teams Desktop Analyst Relationship Specialty Start Date End Date Joni Ortega MD #[address] [address] PCP - General Family Medicine 12/26/20 Marvin Shaikh MD [address] [place] [address] Consulting Physician Oncology 07/22/17 John Paul Sharif MD [address] [place] [address] Consulting Physician Orthopaedic Surgery 07/22/17 Joni Manning MD 4 [facility] # [address] [place] [address] Consulting Physician Neurology 02/15/18 Mark Bettencourt DO 4 [facility] # [address] [place] [address] Gastroenterology 06/07/18 Gabrielle Jones MD #[address] [address] Consulting Physician Orthopaedic Surgery 09/17/24 Toni Wood MD #[address] [address] Consulting Physician General Surgery 01/25/25 documented as of this encounter
--- OUTSIDE RECORDS SUMMARY | 2025-02-14 10:43 | XMS_ITS | Patient Health Record ---
Author Organization [facility] Address [address] [place] [address] Care Team Providers Care Tub Tender Name Role Phone Vel Parra Primary Care Provider Reason For Referral No Information Encounters Encounter Location Date Provider Diagnosis [address] [place] [address] 12/13/2024 Vel Parra Plan Of Treatment No Information
--- OUTSIDE RECORDS SUMMARY | 2025-02-14 10:43 | XMS_ITS | Encounter Summary ---
Author Organization [facility] Address [address] [place] [address] Phone Care Team Providers Care Principal Technical Writer Name Role Phone Marvin Shaikh MD Unavailable John Paul Sharif MD Unavailable [phone] Joni Manning MD Unavailable Mark Bettencourt DO Unavailable [phone] Joni Ortega MD Primary Care Provider Gabrielle Jones MD Unavailable Toni Wood MD Unavailable [phone] Reason for Visit * Reason Onset Date Comments Referral 01/12/2023 External Orthope dic Referral Encounter Details Date Type Department Care Team (Late st Contact Info) Description 01/12/2023 Telephone [facility] [address] [place] [address] Joni Ortega MD #[address] [address] Referral (External Orthopedic Referral) Social History Tobacco [...] st Contact Info) Description 05/15/2025 11:00 AM TANK CARPENTER Office Visit [facility] Medical Group - Family Medicine [facility] #2 [place] [address] Joni Ortega MD #[address] [address] documented as of this encounter Visit Diagnoses Not on filedocumented in this encounter Additional Health Concerns Assessment Noted Time PHQ-9 Depression Total Score: 14 023 10:00 AM CDT documented as of this encounter Care Teams Principal Technical Writer Relationship Specialty Start Date End Date Joni Ortega MD #[address] [address] PCP - General Family Medicine 12/26/20 Marvin Shaikh MD [address] [place] [address] Consulting Physician Oncology 07/22/17 John Paul Sharif MD [address] [place] [address] Consulting Physician Orthopaedic Surgery 07/22/17 Joni Manning MD 4 [facility] [address] [place] [address] Consulting Physician Neurology 02/15/18 Mark Bettencourt DO 4 [facility] [address] [place] [address] Gastroenterology 06/07/18 Gabrielle Jones MD #2 [address] [facility] [address] [place] [address] Consulting Physician Orthopaedic Surgery 09/17/24 Toni Wood MD #[address] [facility] [address] [place] [address] Consulting Physician General Surgery 01/25/25 documented as of this encounter
--- OUTSIDE RECORDS SUMMARY | 2025-02-14 10:43 | XMS_ITS | Encounter Summary ---
Author Organization [facility] Address [address] [place] [address] Phone Care Team Providers Care Division Service Manager Name Role Phone Marvin Shaikh MD Unavailable John Paul Sharif MD Unavailable [phone] Joni Manning MD Unavailable Mark Bettencourt DO Unavailable [phone] Joni Ortega MD Primary Care Provider Gabrielle Jones MD Unavailable Toni Wood MD Unavailable [phone] Reason for Visit * Reason Comments Medication Refill Encounter Details Date Type Department Care Team (Late st Contact Info) Description 2021 Refill [facility] #[address] [place] [address] Joni Ortega MD #[address] [address] Medication Refill Social History Tobacco Use Types [...] st Contact Info) Description 05/15/2025 11:00 AM FORMULATION TECHNICIAN Office Visit [facility] - Family [facility] #2 [place] [address] Joni Ortega MD #[address] [address] documented as of this encounter Visit Diagnoses Diagnosis Anxiety Anxiety state, unspecified documented in this encounter Additional Health Concerns Assessment Noted Time PHQ-9 Depression Total Score: 0 11/12/19 22 12:00 PM CDT documented as of this encounter Care Teams Division Service Manager Relationship Specialty Start Date End Date Joni Ortega MD #[address] [address] PCP - General Family Medicine 12/26/20 Marvin Shaikh MD [address] [place] [address] Consulting Physician Oncology 07/22/17 John Paul Sharif MD [address] [place] [address] Consulting Physician Orthopaedic Surgery 07/22/17 Joni Manning MD [address] [facility] [address] [place] [address] Consulting Physician Neurology 02/15/18 Mark Bettencourt DO [address] [facility] [address] [place] [address] Gastroenterology 06/07/18 Gabrielle Jones MD #[address] [facility] [address] [place] [address] Consulting Physician Orthopaedic Surgery 09/17/24 Toni Wood MD #[address] [facility] [address] [place] [address] Consulting Physician General Surgery 01/25/25 documented as of this encounter
--- OUTSIDE RECORDS SUMMARY | 2025-02-14 10:43 | XMS_ITS | Encounter Summary ---
Author Organization [facility] Address [address] [place] [address] Phone Care Team Providers Care Burr Bench Hand Name Role Phone Marvin Shaikh MD Unavailable John Paul Sharif MD Unavailable Joni Manning MD Unavailable [phone] Joni Ortega MD Primary Care Provider Mark Bettencourt DO Unavailable [phone] Garrison Martinez MD Primary Care Provider Joni Ortega MD Primary Care Provider Gabrielle Jones MD Unavailable Toni Wood MD Unavailable Reason for Visit * Reason Onset Date Comments ED Follow-up 11/03/2020 [place] for right knee pain Results 11/03/2020 knee xray Encounter Details Date Type Department Care Team (Late st Contact Info) Description 11/03/2020 Telephone [facility] #[address] [address] Joni Ortega MD #[address] [address] ED Follow-up ([place] 11/01/20 for right knee pain); Results (knee [...] 1:54 PM CDT Patient calling. Was at [facility] ER on 11/01/20 for right [...] st Contact Info) Description 05/15/2025 11:00 AM SOLDERING MACHINE OPERATOR HELPER Office Visit [facility] - Family Medicine - [place] #[address] [place] [address] Joni Ortega MD #[address] [address] documented as of this encounter Visit Diagnoses Not on filedocumented in this encounter Additional Health Concerns Assessment Noted Time PHQ-9 Depression Total Score: 0 05/02/20 20 10:00 AM SOLDERING MACHINE OPERATOR HELPER documented as of this encounter Care Teams Burr Bench Hand Relationship Specialty Start Date End Date Joni Ortega MD #[address] [address] PCP - General Family Medicine 03/07/18 12/23/20 Garrison Martinez MD #[address] [address] PCP - General Family Medicine 12/24/20 12/25/20 Joni Ortega MD #[address] [address] PCP - General Family Medicine 12/26/20 Marvin Shaikh MD [address] [place] [address] Consulting Physician Oncology 07/22/17 John Paul Sharif MD 1 PROFESSIONAL [email or web address] [address] [place] [address] Consulting Physician Orthopaedic Surgery 07/22/17 Joni Manning MD 4 [facility] # [address] [place] [address] Consulting Physician Neurology 02/15/18 Mark Bettencourt DO #[address] [address] Gastroenterology 06/07/18 Gabrielle Jones MD #[address] [address] Consulting Physician Orthopaedic Surgery 09/17/24 Toni Wood MD #[address] [address] Consulting Physician General Surgery 01/25/25 documented as of this encounter
[2025-02-14] MEDS: LORATADINE 10 MG TABLET PO (10:53)
--- NOTE | 2025-02-14 10:55 | PC.NURSE ---
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 States she does not want the epi and does not want to stay here any longer MD made aware.
--- OUTSIDE RECORDS SUMMARY | 2025-02-14 11:46 | XMS_ITS | Encounter Summary ---
Author Organization [facility] Address [address] [place] [address] Phone Care Team Providers Care General Education Professor Name Role Phone Marvin Shaikh MD Unavailable [phone] John Paul Sharif MD Unavailable Joni Manning MD Unavailable [phone] Mark Bettencourt DO Unavailable [phone] Joni Ortega MD Primary Care Provider Gabrielle Jones MD Unavailable Toni Wood MD Unavailable Encounter Details Date Type Department Care Team (Late st Contact Info) Description 02/06/2025 Results Follow-Up [facility] Medical Group - Family Medicine [facility] #2 [place] [address] Marlee Moe, BILLING COORDINATOR, LEI SELLER 2 [place] [address] POCT GLYCOSYLATED HEMOGLOBIN Social History Tobacco Use [...] st Contact Info) Description 05/15/2025 11:00 AM CENTRIFUGAL DRIER OPERATOR Office Visit [facility] - Family Medicine - [place] #[address] [place] [address] Joni Ortega MD #[address] [address] documented as of this encounter Visit Diagnoses Not on filedocumented in this encounter Additional Health Concerns Assessment Noted Time PHQ-9 Depression Total Score: 0 11/14/19 25 6:12 PM CDT documented as of this encounter Care Teams General Education Professor Relationship Specialty Start Date End Date Joni Ortega MD #[address] [address] PCP - General Family Medicine 12/26/20 Marvin Shaikh MD [address] [place] [address] Consulting Physician Oncology 07/22/17 John Paul Sharif MD [address] [place] [address] Consulting Physician Orthopaedic Surgery 07/22/17 Joni Manning MD 4 [facility] # [address] [place] [address] Consulting Physician Neurology 02/15/18 Mark Bettencourt DO 4 [facility] # [address] [place] [address] Gastroenterology 06/07/18 Gabrielle Jones MD #[address] [address] Consulting Physician Orthopaedic Surgery 09/17/24 Toni Wood MD #[address] [address] Consulting Physician General Surgery 01/25/25 documented as of this encounter
--- OUTSIDE RECORDS SUMMARY | 2025-02-14 11:46 | XMS_ITS | Encounter Summary ---
Author Organization [facility] Address [address] [place] [address] Phone Care Team Providers Care Qa Architect Name Role Phone Marvin Shaikh MD Unavailable [phone] John Paul Sharif MD Unavailable Joni Manning MD Unavailable [phone] Joni Ortega MD Primary Care Provider Mark Bettencourt DO Unavailable [phone] Garrison Martinez MD Primary Care Provider Joni Ortega MD Primary Care Provider Gabrielle Jones MD Unavailable Toni Wood MD Unavailable [phone] Reason for Visit * Reason Onset Date Comments Other 07/10/2020 Encounter Details Date Type Department Care Team (Late st Contact Info) Description 07/10/2020 Telephone [facility] [address] [place] [address] Joni Ortega MD #[address] [address] Other Social History Tobacco Use Types Packs/Day [...] Anna Andres RN - 07/10/2020 11:21 AM INTERPRETIVE NATURALIST Patient calling stating that she has sinus infections every year and wants to know what medication she normally gets. Per review of chart last year she received Amoxicillin. Gave patient this information. Patient did not want to be triaged just wanted the information. She ended call. RPRETIVE NATURALIST documented in this encounter Plan of Treatment Upcoming Encounters Date Type Department Care Team (Late st Contact Info) Description 05/15/2025 11:00 AM INTERPRETIVE NATURALIST Office Visit [facility] #2 [place] [address] Joni Ortega MD #[address] [address] documented as of this encounter Visit Diagnoses Not on filedocumented in this encounter Additional Health Concerns Assessment Noted Time PHQ-9 Depression Total Score: 0 05/02/20 20 10:00 AM INTERPRETIVE NATURALIST documented as of this encounter Care Teams Qa Architect Relationship Specialty Start Date End Date Joni Ortega MD #[address] [address] PCP - General Family Medicine 03/07/18 12/23/20 Garrison Martinez MD #[address] [address] PCP - General Family Medicine 12/24/20 12/25/20 Joni Ortega MD #[address] [facility] [address] [place] [address] PCP - General Family Medicine 12/26/20 Marvin Shaikh MD [address] [place] [address] Consulting Physician Oncology 07/22/17 John Paul Sharif MD 1 [facility] [address] [place] [address] Consulting Physician Orthopaedic Surgery 07/22/17 Joni Manning MD 4 [facility] # [address] [place] [address] Consulting Physician Neurology 02/15/18 Mark Bettencourt DO #[address] [address] Gastroenterology 06/07/18 Gabrielle oJnes MD #2 [address] [facility] [address] [place] [address] Consulting Physician Orthopaedic Surgery 09/17/24 Toni Wood MD #2 [address] [facility] [address] [place] [address] Consulting Physician General Surgery 01/25/25 documented as of this encounter
--- OUTSIDE RECORDS SUMMARY | 2025-02-14 11:46 | XMS_ITS | Encounter Summary ---
Author Organization [facility] Address [address] [place] [address] Phone Care Team Providers Care All Round Logger Name Role Phone Marvin Shaikh MD Unavailable John Paul Sharif MD Unavailable Joni Manning MD Unavailable Joni Ortega MD Primary Care Provider [phone] Mark Bettencourt DO Unavailable [phone] Garrison Martinez MD Primary Care Provider [phone] Joni Ortega MD Primary Care Provider Gabrielle Jones MD Unavailable Toni Wood MD Unavailable Reason for Visit * Reason Onset Date Comments ED Follow-up 11/03/2020 [place] for right knee pain Results 11/03/2020 knee xray Encounter Details Date Type Department Care Team (Late st Contact Info) Description 11/03/2020 Telephone [facility] #[address] [address] Joni Ortega MD #[address] [address] ED Follow-up ([place] 11/01/20 for right knee pain); Results (knee [...] 1:54 PM CDT Patient calling. Was at [facility] ER on 11/01/20 for right knee [...] st Contact Info) Description 05/15/2025 11:00 AM DIE CASTING MACHINE SETTER Office Visit [facility] - Family Medicine - [place] #[address] [place] [address] Joni Ortega MD #[address] [address] documented as of this encounter Visit Diagnoses Not on filedocumented in this encounter Additional Health Concerns Assessment Noted Time PHQ-9 Depression Total Score: 0 05/02/20 20 10:00 AM DIE CASTING MACHINE SETTER documented as of this encounter Care Teams All Round Logger Relationship Specialty Start Date End Date Joni Ortega MD #[address] [address] PCP - General Family Medicine 03/07/18 12/23/20 Garrison Martinez MD #[address] [address] PCP - General Family Medicine 12/24/20 12/25/20 Joni Ortega MD #[address] [address] PCP - General Family Medicine 12/26/20 Marvin Shaikh MD [address] [place] [address] Consulting Physician Oncology 07/22/17 John Paul Sharif MD 1 [address] [facility] [address] [place] [address] Consulting Physician Orthopaedic Surgery 07/22/17 Joni Manning MD 4 [facility] # [address] [place] [address] Consulting Physician Neurology 02/15/18 Mark Bettencourt DO #[address] [address] Gastroenterology 06/07/18 Gabrielle Jones MD #[address] [address] Consulting Physician Orthopaedic Surgery 09/17/24 Toni Wood MD #[address] [address] Consulting Physician General Surgery 01/25/25 documented as of this encounter
--- OUTSIDE RECORDS SUMMARY | 2025-02-14 11:46 | XMS_ITS | Encounter Summary ---
Author Organization [facility] Address [address] [place] [address] Phone Care Team Providers Care Knit Goods Mender Name Role Phone Marvin Shaikh MD Unavailable John Paul Sharif MD Unavailable [phone] Joni Manning MD Unavailable [phone] Mark Bettencourt DO Unavailable [phone] Joni Ortega MD Primary Care Provider Gabrielle Jones MD Unavailable Toni Wood MD Unavailable [phone] Reason for Visit * Reason Onset Date Comments Referral 01/12/2023 External Orthope dic Referral Encounter Details Date Type Department Care Team (Late st Contact Info) Description 01/12/2023 Telephone [facility] [address] [place] [address] Joni Ortega MD #[address] [address] Referral (External Orthopedic Referral) Social History Tobacco [...] Ward - 01/12/2023 8:45 AM CDT SITUATION: [facility] Referral Services is requesting provider review for [...] st Contact Info) Description 05/15/2025 11:00 AM PROPERTY CLAIM REP Office Visit [facility] Medical Group - Family Medicine [facility] #2 [place] [address] Joni Ortega MD #[address] [address] documented as of this encounter Visit Diagnoses Not on filedocumented in this encounter Additional Health Concerns Assessment Noted Time PHQ-9 Depression Total Score: 14 023 10:00 AM CDT documented as of this encounter Care Teams Knit Goods Mender Relationship Specialty Start Date End Date Joni Ortega MD #[address] [address] PCP - General Family Medicine 12/26/20 Marvin Shaikh MD [address] [place] [address] Consulting Physician Oncology 07/22/17 John Paul Sharif MD [address] [place] [address] Consulting Physician Orthopaedic Surgery 07/22/17 Joni Manning MD [address] [facility] [address] [place] [address] Consulting Physician Neurology 02/15/18 Mark Bettencourt DO [address] [facility] [address] [place] [address] Gastroenterology 06/07/18 Gabrielle Jones MD #2 [address] [facility] [address] [place] [address] Consulting Physician Orthopaedic Surgery 09/17/24 Toni Wood MD #[address] [facility] [address] [place] [address] Consulting Physician General Surgery 01/25/25 documented as of this encounter
--- OUTSIDE RECORDS SUMMARY | 2025-02-14 11:46 | XMS_ITS | Encounter Summary ---
Author Organization [facility] Address [address] [place] [address] Phone Care Team Providers Care Microbiology Teacher Name Role Phone Marvin Shaikh MD Unavailable John Paul Sharif MD Unavailable [phone] Joni Manning MD Unavailable Mark Bettencourt DO Unavailable [phone] Joni Ortega MD Primary Care Provider Gabrielle Jones MD Unavailable Toni Wood MD Unavailable Reason for Visit * Reason Comments Medication Refill Encounter Details Date Type Department Care Team (Late st Contact Info) Description 05/20/2023 Refill [facility] - Family Medicine [facility] [address] [place] [address] Joni Ortega MD #[address] [address] Medication Refill Social History Tobacco Use Types [...] Saadia Lan RN - 05/20/2023 1:34 PM GIRLS SWIMMING COACH Override warning for duplicate therapy Per nursing [...] 08/24/22 Office Visit Heather Sosa APRN, [facility] Showing recent visits within past 365 days and meeting all other requirements Future Appointments No visits were found meeting these conditions. Showing future appointments within next 90 days and meeting all other requirements S SWIMMING COACH documented in this encounter Plan of Treatment Upcoming Encounters Date Type Department Care Team (Late st Contact Info) Description 05/15/2025 11:00 AM GIRLS SWIMMING COACH [facility] [place] [address] [place] [address] Joni Ortega MD [address] [address] documented as of this encounter Visit Diagnoses Not on filedocumented in this encounter Additional Health Concerns Assessment Noted Time PHQ-9 Depression Total Score: 14 023 10:00 AM CDT documented as of this encounter Care Teams Microbiology Teacher Relationship Specialty Start Date End Date Joni Ortega MD #[address] [facility] [address] [place] [address] PCP - General Family Medicine 12/26/20 Marvin Shaikh MD [address] [place] [address] Consulting Physician Oncology 07/22/17 John Paul Sharif MD 1 [facility] [address] [place] [address] Consulting Physician Orthopaedic Surgery 07/22/17 Joni Manning MD [address] [facility] [address] [place] [address] Consulting Physician Neurology 02/15/18 Mark Bettencourt DO [address] [facility] [address] [place] [address] Gastroenterology 06/07/18 Gabrielle Jones MD #[address] [facility] [address] [place] [address] Consulting Physician Orthopaedic Surgery 09/17/24 Toni Wood MD #[address] [facility] [address] [place] [phone] Consulting Physician General Surgery 01/25/25 documented as of this encounter
--- OUTSIDE RECORDS SUMMARY | 2025-02-14 11:46 | XMS_ITS | Clinical Summary ---
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 Take 1 Capsule by [...] Type Department Care Team Description 02/07/2025 [facility]phone [facility] [address] [place] [phone] Joni Ortega MD Referral; Follow-up 02/06/2025 11:40 AM CDT Office Visit [facility] [address] [place] [address] Marlee Moe, CYBER SECURITY CONSULTANT, CLOTH WORKER Anxiety (Primary Dx); Primary insomnia; Diet-controlled diabetes mellitus (HCC); Chronic pain syndrome; Arthritis; Chronic midline low back pain without sciatica; Other constipation; COPD (chronic obstructive pulmonary disease) with acute bronchitis (HCC) Discharge Disposition: Discharged to home or Selfcare 02/06/2025 Results Follow-Up [facility] [address] [place] [address] Marlee Moe, CYBER SECURITY CONSULTANT, CLOTH WORKER POCT GLYCOSYLATED HEMOGLOBIN 02/06/2025 Travel 02/04/2025 Telephone [facility] [address] [place] [phone] Joni Ortega MD Appointment 01/24/2025 Telephone [facility] [address] [place] [phone] Joni Ortega MD Appointment 01/23/2025 [facility] [place] [address] Joni Ortega MD 01/23/2025 Telephone [facility] [address] [place] [address] Joni Ortega MD Follow-up 01/18/2025 Telephone [facility] [address] [place] [phone] Joni Ortega MD Referral 01/17/2025 Refill [facility] [address] [place] [address] Joni Ortega MD Medication Refill 01/14/2025 Telephone [facility] [address] [place] [phone] Joni Ortega MD Medication Management 01/11/2025 Telephone [facility] [address] [place] [phone] Joni Ortega MD Need Order 01/09/2025 Nurse Triage [facility] [address] [place] [phone] Joni Ortega MD Medication Problem 01/08/2025 10:30 AM CDT - 01/08/2025 1:05 PM CDT Emergency [facility] Emergency [address] [place] [address] Gavin Sims PAC Chronic low back pain Discharge Disposition: Discharged to home or Selfcare 01/08/2025 Travel 01/08/2025 Nurse Triage [facility] [address] [place] [phone] Joni Ortega MD Back Pain; Need Order 01/07/2025 Refill [facility] [address] [place] [address] Joni Ortega MD Medication Refill 01/03/2025 Nurse Triage [facility] [address] [place] [phone] Joni Ortega MD Advice Only; Nasal Congestion 01/02/2025 Telephone [facility] [address] [place] [phone] Joni Ortega MD Referral; Follow-up 01/01/2025 Nurse Triage [facility] [address] [place] [phone] Joni Ortega MD Yeast Infection; Follow-up 12/31/2024 Refill [facility] [address] [place] [phone] Joni Ortega MD Medication Refill 12/25/2024 Telephone [facility] [address] [place] [phone] Joni Ortega MD Referral (ortho) 12/24/2024 Nurse Triage [facility] [address] [place] [address] [phone] Joni Ortega MD Yeast Infection 12/24/2024 Telephone [facility] [address] [place] [phone] Joni Ortega MD Advice Only 12/20/2024 Telephone [facility] [address] [place] [address] [phone] Joni Ortega MD Post-Hospital Follow-up 12/13/2024 Nurse Triage [facility] [address] [place] [phone] Joni Ortega MD Advice Only 12/11/2024 1:15 PM CDT Office Visit [facility] [address] [place] [address] Joni Ortega MD Uncomplicated opioid dependence (HCC) (Primary Dx); Chronic cough; Chronic midline thoracic back pain; Mild intermittent asthma without complication Discharge Disposition: Discharged to home or Selfcare 12/11/2024 Travel 12/10/2024 Telephone [facility] [address] [place] [phone] Joni Ortega MD Advice Only 12/10/2024 Telephone [facility] [address] [place] [address] [phone] Joni Ortgea MD Care Management; Appointment 2024 Refill [facility] [address] [place] [phone] Joni Ortega MD Medication Refill 11/27/2024 Refill [facility] [address] [place] [phone] Joni Ortega MD Medication Refill 11/27/2024 Telephone [facility] [address] [place] [phone] Joni Ortega MD Discuss Test Result 11/27/2024 Telephone [facility] [address] [place] [phone] Joni Ortega MD Follow-up 11/23/2024 Telephone [facility] [address] [place] [phone] Joni Ortega MD Follow-up; Referral 11/22/2024 Telephone [facility] [address] [place] [address] [phone] Joni Ortega MD Advice Only 11/16/2024 Telephone [facility] [address] [place] [address] Joni Ortega MD 11/16/2024 Results Follow-Up [facility] [address] [place] [phone] Joni Ortega MD CMP (COMPREHENSIVE METABOLIC PANEL), THYROID STIMULATING HORMONE (TSH), ELECTROPHORESIS W/ TOTAL PROTEIN SERUM, Additional followed-up results: 2 11/15/2024 Telephone [facility] [address] [place] [phone] Joni Ortega MD Results 11/15/2024 Telephone [facility] [address] [place] [phone] Joni Ortega MD Results 11/14/2024 Nurse Triage [facility] [address] [place] [address] Joni Ortega MD Abdominal Pain 11/14/2024 Telephone [facility] [address] [place] [address] [phone] Joni Ortega MD Medication Management from Last [...] st Contact Info) Description 05/15/2025 11:00 AM CUFF SETTER OVERLOCK Office Visit [facility] [place] [address] [place] [address] Joni Ortega MD [address] [address] Health Maintenance Due Date Last Done Comments [...] 5 PM CDT us Marlee Moe APRN, CLOTH WORKER POINT OF CARE TESTING (MANUAL) Final Result * XR - LOWER EXTREMITY (02/01/2025 12:00 AM CDT) 02/01/2025 us Provider Scan IMG DIAGNOSTIC ORDERABLES Final Result SCAN * URINALYSIS (UA) RANDOM (01/24/2025 12:00 AM CDT) 01/24/2025 us Provider Scan URINE ORDERABLES Final Result SCAN * (ABNORMAL) Urinalysis w/ Reflex (01/08/2025 11:50 AM CDT) SPECIFIC GRAVITY 1.015 1.003 - 1.030 01/08/2025 12:54 PM CDT [facility] URINE PH 6.0 5.0 - 9.0 01/08/2025 12:54 PM CDT [facility] WBC ESTERASE 100 /uL(A) Negative 01/08/2025 12:54 PM CDT [facility] NITRITE Negative Negative 01/08/2025 12:54 PM CDT [facility] PROTEIN, RANDOM URINE 30 mg/dL(A) Negative 01/08/2025 12:54 PM CDT [facility] URINE GLUCOSE, QUAL Negative Negative 01/08/2025 12:54 PM CDT [facility] URINE KETONES Negative Negative 01/08/2025 12:54 PM CDT [facility] UROBILINOGEN Normal Normal mg/dL 01/08/2025 12:54 PM CDT [facility] URINE BLOOD 25 /uL(A) Negative steve/ul 01/08/2025 12:54 PM CDT [facility] URINALYSIS COLOR Yellow 01/09/20 25 12:54 PM CDT [facility] URINALYSIS CLARITY Slightly Cloudy 01/08/2025 12:54 PM CDT [facility] WBC (Urine) 0-5 Negative, 0-5 /hpf 01/08/2025 12:54 PM CDT [facility] URINE RBC'S 0-2 Negative, 0-2 /hpf 01/08/2025 12:54 PM CDT [facility] EPITHELIAL CELLS Large amount squamous /lpf 01/08/2025 12:54 PM CDT [facility] BACTERIA, URINE Moderate(A) Negative /hpf 01/08/2025 12:54 PM CDT [facility] Urine URINE SPECIMEN / Unknown Non-Phlebotomy Collection / Unknown 01/08/2025 11:50 AM CDT 01/08/2025 12:12 PM CDT us Gavin Sims PAC URINE ORDERABLES Fin al Result [facility] [address] [place] [address] * CT LUMBAR SPINE WO CONTRAST (01/08/2025 [...] flavum hypertrophy. There is facet arthropathy with xcek-xp-chcontcf right neural foraminal narrowing and moderate to [...] canal stenosis. There is facet arthropathy with oaiq-ix-seuznftx bilateral neural foraminal narrowing. L3-L4: There is [...] Daniel Bowen D.O. PS: MAGDI Report ID: [id number] Reading Location: [id number] Procedure Note Daniel Bowen, DO - 01/08/2025 [...] flavum hypertrophy. There is facet arthropathy with mkne-hv-wwjkowel right neural foraminal narrowing and moderate to [...] canal stenosis. There is facet arthropathy with lwof-je-dhjrbjsl bilateral neural foraminal narrowing. L3-L4: There is [...] Daniel Bowen D.O. PS: PS Report ID: [id number] Reading Location: [place] [address] IMPRESSION: 1. Mild osteopenia with minimal to [...] Punctate bilateral nonobstructing renal calculi. Gavin Sims [facility] IMG CT ORDERABLES Fi nal Result * (ABNORMAL) CMP (COMPREHENSIVE METABOLIC PANEL) (11/13/2024 3:59 PM CDT) SODIUM 136 136 - 145 mmol/L 11/13/2024 4:35 PM CDT [facility] POTASSIUM 4.1 3.5 - 5.1 mmol/L 11/13/2024 4:35 PM CDT [facility] CHLORIDE 103 98 - 107 mmol/L 11/13/2024 4:35 PM CDT [facility] CO2, VENOUS 24 22 - 30 mmol/L 11/13/2024 4:35 PM CDT [facility] ANION GAP 13.1 <18.0 mmol/L 11/13/2024 4:35 PM CDT [facility] GLUCOSE 121(H) 70 - 99 mg/dL 11/13/2024 4:35 PM CDT [facility] BUN 9(L) 10 - 20 mg/dL 11/13/2024 4:35 PM CDT [facility] CREATININE, BLOOD 1.00 0.60 - 1.00 mg/dL 11/13/2024 4:35 PM CDT [facility] BUN/CREATININE RATIO 9(L) 12 - 20 ratio 11/13/2024 4:35 PM CDT [facility] TOTAL PROTEIN 7.3 6.0 - 8.0 g/dL 11/13/2024 4:35 PM CDT [facility] ALBUMIN 4.6 3.5 - 5.0 g/dL 11/13/2024 4:35 PM CDT [facility] A/G RATIO 1.7 1.0 - 2.2 11/13/2024 4:35 PM CDT [facility] CALCIUM 9.9 8.7 - 10.5 mg/dL 11/13/2024 4:35 PM CDT [facility] T BILI 0.3 0.2 - 1.2 mg/dL 11/13/2024 4:35 PM CDT [facility] SGOT (AST) 22 <43 U/L 11/13/2024 4:35 PM CDT [facility] SGPT (ALT) 24 <56 U/L 11/13/2024 4:35 PM CDT [facility] ALKALINE PHOSPHATASE 99 40 - 150 U/L 11/13/2024 4:35 PM CDT [facility] IS THE PATIENT REQUIRED TO BE FASTING? No 11/13/2024 4:35 PM CDT [facility] GFR, ESTIMATED 59(L) >=60 11/13/2024 4:35 PM CDT [facility] Comment: Creatinine Clearance is the preferred criteria for selecting drug dose adjustments in renally impaired patients. The GFR is provided as additional pertinent clinical information. GFR is reported in mL/min/1.73 sq m. Calculation based on the Chronic Kidney Disease Epidemiology Collaboration (CKD- EPI) equation refit without adjustment for race. GFR, EST. >60 >=60 025 4:35 PM CDT [facility] GFR, EST. NONAFRICAN 54(L) >=60 11/13/2024 4:35 PM CDT [facility] Blood Venipuncture / Unknown 11/13/2024 3:59 PM CDT 11/13/2024 4:15 PM CDT us Joni Ortega MD CHEMISTRY ORDERABLES Final Re sult [facility] [address] [place] [address] * HEPATITIS PANEL ACUTE (AHP) (02/23/2022 2:36 PM CDT) HEPATITIS A IGM ANTIBODY NON DETECTED NON DETECTED [facility] [id number] B 02/23/2022 10:26 PM CDT [facility] Comment: IGM Antibodies to HAV not detected. Does not exclude early acute or recovered HAV infection. HEP B CORE AB (IGM) NON DETECTED NON DETECTED [facility] [id number] B 02/23/2022 10:26 PM CDT [facility] Comment:IGM anti-HBC not det ected. Does not exclude the possibility of exposure to or infection with HBV. HEPATITIS B SURFACE ANTIGEN NON DETECTED NON DETECTED [facility] [id number] B 02/23/2022 10:26 PM CDT [facility] Comment:A nonreactive test r esult does not exclude the possibility of exposure to or infection with Hepatitis B virus. A nonreactive test result in individuals with prior exposure to hepatitis B may be due to antigen levels below the detection limit of this assay or lack of antigen reactivity to the antibodies in this assay. hepatitis C antibody 0.08 <1 S/CO [facility] [id number] B 02/23/2022 10:26 PM CDT [facility] Comment: Signal/Cutoff ratio < 0.79 is Nondetected Signal/Cutoff ratio 0.80-0.99 is Grayzone Signal/Cutoff ratio > 0.99 is Detected Supplemental assays are recommended if signal/cutoff ratio is >/=1.00. Signal/cutoff ratio result >/= 5.00 is 97% predictive of positivity for recombinant immunoblot assay (RIBA) and will be reported to the [place] Department of Public Health as required. Blood Venipuncture / Unknown 02/23/2022 2:36 PM CDT 02/23/2022 2:36 PM CDT us Joni Ortega MD HEMATOLOGY ORDERABLES Final R esult [facility] [address] [place] [address], [place] * POCT STOOL, OCCULT BLOOD, DIAGNOSTIC (10/04/2018 8:50 AM CDT) OCCULT BLOOD, STOOL Negative Negative, Other POC HEMOCULT CONTROL [place] 10/04/2018 8:50 AM CDT Chantal Case APRN, CLOTH WORKER POINT OF CARE TESTIN G (MANUAL) Final [...] to exams dated: 12/25/2008, 05/29/2013, and 05/01/2008 [facility]. BREAST TISSUE: The tissue of [...] signed by: Chrissy Carter M.D. pw/:11/29/2017 10:52:53 Manager Insurance: Padma Rodriguez(Gil), [facility] Reading location: [facility] BI-RADS: 0 Additional Imaging Evaluation Needed [...] to exams dated: 12/25/2008, 05/29/2013, and 05/01/2008 [facility]. BREAST TISSUE: The tissue of [...] signed by: Chrissy Carter M.D. pw/:11/29/2017 10:52:53 Manager Insurance: Padma Rodriguez(R), [facility] Reading location: [facility] BI-RADS: 0 Additional Imaging Evaluation Needed [...] measures to stabilize the patient. Care Teams Electric Relay Tester Relationship Specialty Start Date End Date Joni Ortega MD #[address] [facility] [address] [place] [address] PCP - General Family Medicine 12/26/20 Marvin Shaikh MD [address] [place] [address] Consulting Physician Oncology 07/22/17 John Paul Sharif MD [address] [facility] [address] [place] [address] Consulting Physician Orthopaedic Surgery 07/22/17 Joni Manning MD [address] [facility] [address] [place] [address] Consulting Physician Neurology 02/15/18 Mark Bettencourt DO [address] [place] [address] [address] [place] [address] Gastroenterology 06/07/18 Gabrielle Jones MD #[address] [facility] [address] [place] [address] Consulting Physician Orthopaedic Surgery 09/17/24 Toni Wood MD #[address] [facility] [address] [place] [address] Consulting Physician General Surgery 01/25/25
--- OUTSIDE RECORDS SUMMARY | 2025-02-14 11:46 | XMS_ITS | Encounter Summary ---
Author Organization [facility] Address [address] [place] [address] Phone Care Team Providers Care Senior Functional Analyst Name Role Phone Marvin Shaikh MD Unavailable John Paul Sharif MD Unavailable Joni Manning MD Unavailable [phone] Mark Bettencourt DO Unavailable [phone] Joni Ortega MD Primary Care Provider Gabrielle Jones MD Unavailable Toni Wood MD Unavailable [phone] Encounter Details Date Type Department Care Team (Late st Contact Info) Description 08/23/2022 Telephone [facility] [address] [place] [address] Joni Ortega MD #[address] [address] Social History Tobacco Use Types Packs/Day Years [...] Coronavirus/COVID-19? 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 documented as of this encounter Plan of Treatment Upcoming Encounters Date Type Department Care Team (Late st Contact Info) Description 05/15/2025 11:00 AM MARKET RESEARCHER [facility] [address] [place] [address] Joni Ortega MD #2 [facility] [place] [address] documented as of this encounter Visit Diagnoses Not on filedocumented in this encounter Additional Health Concerns Assessment Noted Time PHQ-9 Depression Total Score: 0 11/12/19 22 12:00 PM CDT documented as of this encounter Care Teams Senior Functional Analyst Relationship Specialty Start Date End Date Joni Ortega MD #[address] [address] PCP - General Family Medicine 12/26/20 Marvin Shaikh MD [address] [place] [address] Consulting Physician Oncology 07/22/17 John Paul Sharif MD [address] [place] [address] Consulting Physician Orthopaedic Surgery 07/22/17 Joni Manning MD 4 [facility] [address] [place] [address] Consulting Physician Neurology 02/15/18 Mark Bettencourt DO [address] [place] [address] [address] [place] [address] Gastroenterology 06/07/18 Gabrielle Jones MD [address] [address] Consulting Physician Orthopaedic Surgery 09/17/24 Toni Wood MD [address] [phone] Consulting Physician General Surgery 01/25/25 documented as of this encounter
--- OUTSIDE RECORDS SUMMARY | 2025-02-14 11:47 | XMS_ITS | Clinical Summary ---
Author Organization [facility] Address [address] [place] [address] Care Team Providers Care Cloth Wire Weaver Name Role Phone Joni Ortega MD Primary Care Provider Allergies Active Allergy Reactions Criticality Noted Date Comments Aspirin Stomach upset Low 05/09/2023 ulcers Hydromorphone Hallucinations Medium 12/22/2023 Duloxetine Hcl Diarrhea,Hives,Vomiting Medium 05/09/20 Erythromycin Nausea only,Hives Medium 05/08/2015 Pregabalin Other (See comments) Low 03/24/2018 Per patient suicidal Nitrofurantoin Unknown 08/24/2022 No Known Allergies Other (See comments) Low 019 Reaction: Other Anaphylaxis High 03/22/2017 BEE STINGS Paroxetine Vomiting Low 01/20/2023 Rosuvastatin Other (See comments) Low 06/30/2023 Leg cramping Sulfa (Sulfonamide Antibiotics) Nausea only Low 11/13/2024 Tramadol Nausea only Low 05/08/2015 Unclassified Drug Unknown 03/02/2019 Venom-Honey Bee Anaphylaxis High 03/22/2017 BEE STINGS Medications ezetimibe (ZETIA) 10 mg tabletIndication s:Cerebral atherosclerosis, High cholesterol,Athe rosclerosis of abdominal aorta Take 1 tablet (10 mg total) by mouth daily 90 tablet 4 4 Active Additional Information Patient not taking.Reported on 12/14/2024 albuterol HFA (PROVENTIL HFA,VENTOLIN HFA,PROAIR HFA) 90 mcg/actuation inhalerIndicatio ns:Pulmonary emphysema, unspecified emphysema type (HCC) Inhale 2 puffs every 6 (six) hours as needed for wheezing 3 each 4 4 Active lidocaine (LIDODERM) 5 % Place 2 patches on the skin daily for 12 hours Remove & discard patch within 12 hours or as directed by MD. [address] (PROTONIX) 40 mg EC tabletIndication s:Treatment of Non-Bleeding Gastric Disorder Take 1 tablet (40 mg total) by mouth daily 30 tablet 11 5 12/21/19 26 Active Additional Information Patient not taking.Reported on 01/23/2025 methylPREDNISolo ne (Medrol, Cristo,) 4 mg Dosepack Take as directed on package 1 packet 5 Active celecoxib (CeleBREX) 200 mg capsule Take 1 capsule (200 mg total) by mouth 2 (two) times a day 60 capsule 5 02/21/20 25 Active zolpidem (AMBIEN) 10 mg tablet Take 1 tablet (10 mg total) by mouth nightly as needed for sleep Active DULoxetine DR (CYMBALTA) 30 mg capsule Take 1 capsule (30 mg total) by mouth nightly 30 capsule 1 5 Active Active Problems Problem Noted Date Diagnosed Date Oxycodone use disorder, mild 12/14/2024 Primary osteoarthritis of left shoulder 12/22/19 24 [...] are stable, reviewed previous lipid levels in [facility]. Patient has stain intolerance. Crestor [...] imaging. Assessment & Plan (06/30/2023 7:52 PM RESERVOIR ENGINEERING ADVISOR): Chronic. Was intolerant of rosuvastatin 10 mg [...] aspirin Assessment & Plan (06/30/2023 7:52 PM RESERVOIR ENGINEERING ADVISOR): Chronic. Continue to work on risk factor modification. Intolerant of rosuvastatin 10 mg dose. Will try Zetia. Could benefit from PCSK9 inhibitor but patient is refusing. Counseled on importance of patient to stop smoking. Cerebral atherosclerosis 06/30/2023 Assessment & Plan (09/29/2023 5:35 PM CDT): Chronic. Continue with risk factor modification with Zetia and rosuvastatin. Continue aspirin. Assessment & Plan (06/30/2023 7:53 PM RESERVOIR ENGINEERING ADVISOR): Previously noted on imaging. Continue risk factor modification. Encouraged to stop smoking. Trial of Zetia given statin intolerance Fatty liver disease, nonalcoholic 06/30/2023 Assessment & Plan (09/29/2023 5:37 PM CDT): Liver ultrasound was previously ordered to assess. Still needs to be completed. Her upper abdominal symptoms have improved some. Monitor. Encouraged healthy diet and exercise Assessment & Plan (06/30/2023 7:53 PM RESERVOIR ENGINEERING ADVISOR): Patient reported diagnosis. Counseled on healthy diet, [...] smoking Assessment & Plan (06/30/2023 7:51 PM RESERVOIR ENGINEERING ADVISOR): Chronic. Breathing has improved since we started [...] interested. Assessment & Plan (06/30/2023 7:50 PM RESERVOIR ENGINEERING ADVISOR): Patient is currently smoking. This is posing [...] 11/30/2019 Thoracic spondylosis without myelopathy 11/30/19 20 Intractable pain 01/18/2018 Assessment & Plan (06/30/2023 7:51 PM RESERVOIR ENGINEERING ADVISOR): Chronic. Medication care per pain management Assessment [...] 07/04/2016 Assessment & Plan (06/30/2023 7:50 PM RESERVOIR ENGINEERING ADVISOR): Currently denies significant mental health symptoms. Patient [...] amitriptyline Assessment & Plan (06/30/2023 7:51 PM RESERVOIR ENGINEERING ADVISOR): Chronic. Continue pain meds per pain management. [...] Overview (01/21/2023): Diagnosed in 2010. Treated at [facility]. Patient had prior bone marrow transplant. Last saw her oncologist in 2015 and has been released from care. Remains in remission Assessment & Plan (09/29/2023 5:33 PM CDT): History of AML. Remains in remission. No signs of recurrence. Monitor blood counts yearly Assessment & Plan (06/30/2023 7:50 PM RESERVOIR ENGINEERING ADVISOR): Remote history of leukemia. Has been in remission for over a decade. Denies symptoms Assessment & Plan (01/21/2023 3:15 PM CDT): Tightness and 2011 status post bone marrow transplant. [place] to be in sustained remission. No longer [...] Will monitor. Lumbar facet joint pain 11/30/2019 0409/2023 Low back pain 05/24/2018 12/22/2023 Assessment & Plan (06/30/2023 7:51 PM RESERVOIR ENGINEERING ADVISOR): Care per pain management. Medications per specialist. [...] 01/18/2018 01/21/2023 Arthralgia of wrist 11/13/2013 01/22/20 Encounters Date Type Department Care Team Description 01/31/2025 Telephone [facility] Medical [facility] Orthopedics and Sports Medicine [address] [facility] [address] [place] [address] Jennifer Bolden PA Appointment 01/23/2025 11:51 AM CDT - 01/23/2025 11:59 PM CDT Hospital Encounter [facility] [address] [facility] [address] [place] [address] Karl Shore MD Chronic pain syndrome (Primary Dx); Fibromyalgia Discharge Disposition: Discharge to home or self care 01/15/2025 Telephone [facility] Orthopedics and Sports Medicine [address] [facility] [address] [place] [address] Helder Velazquez MD Right knee pain 12/17/2024 Documentation [facility] Warm [facility] Off [facility] [address] [place], [place] [phone] Jhoana Mackey 12/16/2024 Documentation [facility] [address] [place] [phone] Feli Ruiz 12/15/2024 Documentation [facility] [address] [place] [phone] Feli Ruiz 12/14/2024 1:19 PM CDT - 12/19/2024 1:01 PM CDT Hospital Encounter [facility] Medical Care [address] [place] [phone] Windy Magdaleno MD Kim, Eileen H., MD Intractable pain (Primary Dx); Fibromyalgia Discharge Disposition: Discharge to home or self care 12/14/2024 12:30 PM CDT Lab [address] [address] 12/14/2024 [facility] Enrollment [facility] [address] [place] [phone] PalmCastro duran 12/13/2024 Documentation [facility] [address] [place], [place] [phone] Palm, Castro 12/13/2024 [facility] Initial Eligibility [facility] [address] [place] [phone] Palm, Castro 12/04/2024 1:30 PM CDT Office Visit [facility] Medical Group Orthopedics and Sports Medicine [address] [facility] [address] [place] [address] Jennifer Bolden PA Primary osteoarthritis of right knee (Primary Dx) 12/04/2024 7:40 AM CDT - 12/04/2024 11:59 PM CDT Hospital Encounter [facility] Medical [facility] Orthopedics and Sports Medicine [address] [facility] [address] [place] [phone] Discharge Disposition: Discharge to home or self care 11/30/2024 2:30 PM CDT Ancillary Procedure [facility] 11/28/2024 12:47 PM CDT - 11/28/2024 11:59 PM CDT Hospital Encounter [facility] [address] [place] [address] Stress fracture, left foot, initial encounter for fracture; Stress fracture, right foot, initial encounter for fracture Discharge Disposition: Discharge to home or self care from Last 3 Months Immunizations Immunization Administration [...] - COPD (chronic obstructive pu lmonary disease) Fibromyalgia Mastoiditis of both sides 01/18/2018 Chickenpox Low back pain Joint pain Neck pain Family History Medical History Relation Name Comments [...] you have a drink containing alcohol? Never 12/14/2024 Q2: How many drinks containi ng alcohol do you have on a typical day when you are drinking? Patient does not drink Q3: How often do you have si x or more drinks on one occasion? Never 12/14/2024 PHQ-2 Answer Date Recorded PHQ-2 Total Score (If total score is 3 or more points, staff should administer the PHQ-9) 6 01/23/2025 PHQ-9 Answer Date Recorded PHQ-9 Total Score 12 01/23/2025 Personal Safety Answer Date Recorded Have you ever been in or are you currently in a harmful physical or emotional relationship or is someone making you feel afraid or unsafe? Denies 12/14/2024 Comments No Sex and Gender Information Value Date Recorded Sex Assigned at Not on file Legal Sex Female 11:53 PM RESERVOIR ENGINEERING ADVISOR Gender Identity Not on file Sexual Orientation Not on file Obstetrics History Para Term AB IAB SAB Ectopic Multiple Livin g Live Births 2 2 Date Outcome GA Total Labor Labor/2nd/3rd Weight Sex Type Anes PTL Nargis A1 A5 Name Clin Para Para Last Filed Vital Signs Vital Sign Reading Time Taken Comments Blood Pressure 160/91 01/23/2025 12:28 PM CDT Pulse 93 01/23/2025 12:28 PM CDT Temperature 36.2 C (97.2 F) 12/19/2024 8:04 AM CDT Respiratory Rate 20 01/23/2025 12:28 PM CDT Oxygen Saturation 97% 01/23/2025 12:28 PM CDT Inhaled Oxygen Concentration - - Weight 73 kg (160 lb 15 oz) 12/14/2024 2:05 PM C DT Height 162.6 cm (5' 4) 12/14/2024 2:05 PM CDT Body Mass Index 27.62 12/14/2024 2:05 PM CDT Plan of Treatment Health Maintenance Due Date Last Done Comments Albumin Creatinine Ratio, Urine 1950 Osteoporosis Screening-Bone Density Scan 1950 Dilated Eye Exam 1950 Foot Exam 1948 Hepatitis B Screening 1966 Pneumococcal vaccine 65+ (1 of 2 - PCV) 12/08/1967 Zoster Vaccine (1 of 2) 12/08/1967 Well Visit 65+ 2013 Influenza Vaccine (#1) 2025 DTaP/Tdap/Td Vaccine (2 - Td or Tdap) 03/30/2025 03/30/2015, 06/27/2010 Hemoglobin A1C 06/16/2025 12/15/2024, 12/23/2023 Lipid Panel 12/15/2025 12/15/2024, 032 , 12/23/2023, Additional history exists Fall Risk Assessment 12/19/2025 12/19/2024, 12/22/2023, 01/20/2023 eGFR 12/19/2025 12/19/2024, 11/26, 12/17/2024, Additional history exists Depression Screening 01/23/2026 01/23/2025, 01/23/2025, 12/22/2023, Additional history exists Colon Cancer Screening-Colonoscopy Discontinued 03/22/2017 Colorectal Cancer Screening Discontinued Breast Cancer Screening-Mammogram Discontinued 018, 11/29/2017 Hepatitis C Screening Completed 02/23/2022 Colon Cancer Screening-CT Colonography Discontinued Colon Cancer Screening-DNA Stool Discontinued Colon Cancer Screening-FIT Discontinued Colon Cancer Screening-FOBT Discontinued Colon Cancer Screening-Sigmoidoscopy Discontinued Procedures Procedure Name Priority Date/Time Associated Diagnosis Comments EGFR Routine 12/19/2024 4:29 AM CDT DIFFERENTIAL AUTO Routine 12/19/2024 4:2 9 AM CDT COMPREHENSIVE METABOLIC PANEL Routine 12/19/2024 4:29 AM CDT PHOSPHORUS Routine 12/19/2024 4:29 AM CDT MAGNESIUM Routine 12/19/2024 4:29 AM CDT CBC WITH AUTO DIFFERENTIAL Routine 12/19/2024 4:29 AM CDT EGFR Routine 12/18/2024 9:01 AM CDT BASIC METABOLIC PANEL Routine 12/18/2024 9:01 AM CDT CBC WITHOUT DIFFERENTIAL Routine 12/18/2024 9:01 AM CDT AEROBIC AND ANAEROBIC CULTURE AND GRAM STAIN Routine 12/17/2024 8:58 AM CDT POCT GLUCOSE DEVICE Routine 12/17/2024 7 :58 AM CDT EGFR Routine 12/17/2024 7:42 AM CDT BASIC METABOLIC PANEL Routine 12/17/2024 7:42 AM CDT CBC WITHOUT DIFFERENTIAL Routine 12/17/2024 7:42 AM CDT POCT GLUCOSE DEVICE Routine 12/17/2024 3 :03 AM CDT POCT GLUCOSE DEVICE Routine 12/16/2024 8 :34 PM CDT POCT GLUCOSE DEVICE Routine 12/16/2024 4 :50 PM CDT POCT GLUCOSE DEVICE Routine 12/16/2024 11:35 AM CDT POCT GLUCOSE DEVICE Routine 12/16/2024 7 :47 AM CDT EGFR Routine 12/16/2024 7:22 AM CDT BASIC METABOLIC PANEL Routine 12/16/2024 7:22 AM CDT CBC WITHOUT DIFFERENTIAL Routine 12/16/2024 7:22 AM CDT POCT GLUCOSE DEVICE Routine 12/16/2024 1 :50 AM CDT POCT GLUCOSE DEVICE Routine 12/15/2024 8 :13 PM CDT POCT GLUCOSE DEVICE Routine 12/15/2024 5 :02 PM CDT POCT GLUCOSE DEVICE Routine 12/15/2024 11:49 AM CDT POCT GLUCOSE DEVICE Routine 12/15/2024 8 :09 AM CDT EGFR Routine 12/15/2024 7:29 AM CDT LIPID PANEL Routine 12/15/2024 7:29 AM CDT HEMOGLOBIN A1C Routine 12/15/2024 7:29 AM CDT BASIC METABOLIC PANEL Routine 12/15/2024 7:29 AM CDT CBC WITHOUT DIFFERENTIAL Routine 12/15/2024 7:29 AM CDT XR SHOULDER LEFT 2 OR MORE VIEWS IP Routine 12/14/2024 6:36 PM CDT OXYCODONE CONFIRMATION, URINE Routine 12/14/2024 4:18 PM CDT DRUGS OF ABUSE SCREEN, URINE WITH REFLEX CONFIRMATION Routine 12/14/2024 4:18 PM CDT URINALYSIS AND REFLEX TO MICROSCOPIC AND CULTURE Routine 12/14/2024 4:18 PM CDT EGFR Routine 12/14/2024 11:54 AM CDT COMPREHENSIVE METABOLIC PANEL Routine 12/14/2024 11:54 AM CDT CBC WITHOUT DIFFERENTIAL STAT 12/14/2024 11:54 AM CDT NM ARTHROCENTESIS ASPIR&/INJ MAJOR JT/BURSA W/O US Routine 12/04/2024 1:30 PM CDT Primary osteoarthritis of right knee XR KNEE RIGHT 4 OR MORE VIEWS Schedule Routine, Read Routine (OP Routine) 12/04/2024 1:01 PM CDT Primary osteoarthritis of right knee XR TRANSFER OF OUTSIDE FILMS Routine 11/30/2024 2:29 PM CDT MRI FOOT LEFT WO CONTRAST Schedule Routine, Read Routine (OP Routine) 11/28/2024 1:36 PM CDT Stress fracture, left foot, initial encounter for fracture Stress fracture, right foot, initial encounter for fracture HEPATITIS C SCREENING Routine 02/23/2022 from Last 3 Months or Most Recently Relevant to Health Maintenance Results * eGFR (12/19/2024 4:29 AM CDT) eGFR 67 >=60 mL/min/1. 73 m2 Comment: Interpretive Data Reference Interval Normal >/= 90 mL/min/1.73m2 Mildly decreased* 60 - 89 mL/min/1.73m2 Mildly to moderately decreased 45 - 59 mL/min/1.73m2 Moderately to severely decreased 30 - 44 mL/min/1.73m2 Severely decreased 15 - 29 mL/min/1.73m2 Kidney Failure < 15 mL/min/1.73m2 *Relative to young adult level Estimated glomerular filtration rate is determined by the 2020 CKD-EPI equation recommended by the National Kidney Foundation (A Unifying Approach to GFR Estimation: Recommendations of the NKF-ASK Task Force on Reassessing the Inclusion of Race in Diagnosing Kidney Disease, JASN 2020). The CKD-EPI equation should not be used for patients with unstable renal function and has not been validated in children and those over 70. Current interpretive data was last reviewed 2021. Blood 12/19/2024 4:29 AM CDT 12/19/2024 5:36 AM CDT us Agnieszka Reid MD LAB BLOOD ORDERABLES Final Resu lt [facility] [address] [facility] [place] [address] * (ABNORMAL) Differential, auto (12/19/2024 4:29 AM CDT) Neutrophil abs 9.41(H) 1.50 - 6.50 K/cumm Imm gran abs 0.08 0.00 - 0.10 K/cumm [facility] ([facility]) Lymphocyte abs 4.02(H) 0.80 - 3.30 K/cumm [facility] ([place]) Monocyte abs 0.80 0.20 - 0.80 K/cumm [facility] ([place]) Eosinophil abs 0.13 0.00 - 0.50 K/cumm [facility] ([place]) Basophil abs 0.09 0.00 - 0.10 K/cumm [facility] ([place]) Neutrophil pct 64.7 % [facility] ([place]) Comment: Interpretive Data Percent cell count reference ranges are not reported, since discordance with absolute values may lead to misinterpretation of CBC data. Current Interpretive Data was last revised on 2017. Imm gran pct 0.6 % [facility] ([place]) Comment: Interpretive Data Percent cell count reference ranges are not reported, since discordance with absolute values may lead to misinterpretation of CBC data. Current Interpretive Data was last revised on 2017. Lymphocyte pct 27.7 % [facility] ([place]) Comment: Interpretive Data Percent cell count reference ranges are not reported, since discordance with absolute values may lead to misinterpretation of CBC data. Current Interpretive Data was last revised on 2017. Monocyte pct 5.5 % [facility] ([place]) Comment: Interpretive Data Percent cell count reference ranges are not reported, since discordance with absolute values may lead to misinterpretation of CBC data. Current Interpretive Data was last revised on 2017. Eosinophil pct 0.9 % [facility] ([place]) Comment: Interpretive Data Percent cell count reference ranges are not reported, since discordance with absolute values may lead to misinterpretation of CBC data. Current Interpretive Data was last revised on 2017. Basophil pct 0.6 % [facility] ([place]) Comment: Interpretive Data Percent cell count reference ranges are not reported, since discordance with absolute values may lead to misinterpretation of CBC data. Current Interpretive Data was last revised on 2017. Blood 12/19/2024 4:29 AM CDT 12/19/2024 5:35 AM CDT us Agnieszka Reid MD LAB BLOOD ORDERABLES Final Resu lt [facility] ([place]) [address] [place] [address] * (ABNORMAL) CBC with auto differential (12/19/2024 4:29 AM CDT) WBC 14.53(H) 3.80 - 9.90 K/cumm Hgb 15.0 11.9 - 15.5 g/dL [facility] Hct 44.0 35.6 - 45.5 % [facility] Plt 278 150 - 400 K/cumm [facility] ([place]) MPV 10.1 9.1 - 12.3 fL [facility] RBC 4.88 3.90 - 5.20 M/cumm [facility] MCV 90.2 81.3 - 96.4 fL [facility] MCH 30.7 27.1 - 33.3 pg [facility] ([place]) MCHC 34.1 32.3 - 35.7 g/dL [facility] RDW CV 13.7 11.1 - 14.9 % [facility] RDW SD 45.5 35.7 - 48.1 fL [facility] NRBC abs 0.00 0.00 - 0.01 K/cumm [facility] Blood 12/19/2024 4:29 AM CDT 12/19/2024 5:35 AM CDT Agnieszka Reid MD LAB BLOOD ORDERABLES Final Resu lt [facility] ([place]) 1 [facility] [place] [address] * Phosphorus (12/19/2024 4:29 AM CDT) Pathologist [facility] Phosphorus, pl 3.5 2.3 - 4.5 mg/dL Blood 12/19/2024 4:29 AM CDT 12/19/2024 5:36 AM CDT Agnieszka Reid MD LAB BLOOD ORDERABLES Final Resu lt [facility] ([place]) 1 [facility] [place] [address] * Magnesium (12/19/2024 4:29 AM CDT) Pathologist [facility] Magnesium 2.1 1.4 - 2.5 mg/dL Blood 12/19/2024 4:29 AM CDT 12/19/2024 5:36 AM CDT Agnieszka Reid MD LAB BLOOD ORDERABLES Final Resu lt Performing Organization Address City/[facility] Co de Phone Number [facility] ([place]) 1 [facility] [employer] [place] [address] * (ABNORMAL) Comprehensive metabolic panel (12/19/2024 4:29 AM CDT) Sodium 134(L) 135 - 145 mmol/L Potassium, pl 4.3 3.3 - 4.9 mmol/L [facility] ([place]) Chloride 96(L) 97 - 110 mmol/L [facility] ([place]) CO2 24 22 - 32 mmol/L [facility] ([place]) Anion gap 14 2 - 15 mmol/L [facility] ([place]) BUN 20 6 - 25 mg/dL [facility] ([place]) Creatinine 0.89 0.60 - 1.10 mg/dL [facility] ([place]) Glucose 103 70 - 199 mg/dL [facility] ([place]) Comment: Interpretive Data Fasting glucose >/= 126 mg/dl is diagnostic for diabetes. Fasting is defined as no caloric intake for at least 8 hours. Fasting glucose between 100 mg/dl to 125 mg/dl is diagnostic of prediabetes. In a patient with classic symptoms of hyperglycemia or hyperglycemic crisis, a random glucose >/= 200 mg/dl is diagnostic for diabetes. In the absence of unequivocal hyperglycemia, results should be confirmed by repeat testing. The classification and Diagnosis of Diabetes Diabetes Care 2021; 46: S19-S40. Current interpretive data was last revised 2022. Calcium 9.4 8.5 - 10.3 mg/dL [facility] ([place]) Bilirubin, total 0.2 0.1 - 1.2 mg/dL [facility] ([place]) Protein, pl 6.6 6.5 - 8.5 g/dL [facility] ([place]) Albumin 4.0 3.5 - 5.0 g/dL [facility] ([place]) Alk phos 102 40 - 130 Units/L [facility] ([place]) ALT 30 7 - 45 Units/L [facility] ([place]) AST 23 10 - 45 Units/L [facility] ([place]) Comment:Slightly Hemolyzed S pecimen Blood 12/19/2024 4:29 AM CDT 12/19/2024 5:36 AM CDT us Agnieszka Reid MD LAB BLOOD ORDERABLES Final Resu lt [facility] ([place]) 1 [facility] Department [place] [address] * eGFR (12/18/2024 9:01 AM CDT) eGFR 80 >=60 mL/min/1. 73 m2 Comment: Interpretive Data Reference Interval Normal >/= 90 mL/min/1.73m2 Mildly decreased* 60 - 89 mL/min/1.73m2 Mildly to moderately decreased 45 - 59 mL/min/1.73m2 Moderately to severely decreased 30 - 44 mL/min/1.73m2 Severely decreased 15 - 29 mL/min/1.73m2 Kidney Failure < 15 mL/min/1.73m2 *Relative to young adult level Estimated glomerular filtration rate is determined by the 2020 CKD-EPI equation recommended by the National Kidney Foundation (A Unifying Approach to GFR Estimation: Recommendations of the NKF-ASK Task Force on Reassessing the Inclusion of Race in Diagnosing Kidney Disease, JASN 2020). The CKD-EPI equation should not be used for patients with unstable renal function and has not been validated in children and those over 70. Current interpretive data was last reviewed 2021. Blood 12/18/2024 9:01 AM CDT 12/18/2024 9:31 AM CDT us Windy Magdaleno MD LAB BLOOD ORDERABLES Amalia mccurdy Result [facility] ([place]) 1 [facility] Department [place] [address] * (ABNORMAL) CBC without differential (12/18/2024 9:01 AM CDT) WBC 12.28(H) 3.80 - 9.90 K/cumm Hgb 15.1 11.9 - 15.5 g/dL [facility] ([place]) Hct 45.1 35.6 - 45.5 % [facility] ([place]) Plt 269 150 - 400 K/cumm [facility] ([place]) MPV 10.0 9.1 - 12.3 fL [facility] ([place]) RBC 4.95 3.90 - 5.20 M/cumm [facility] ([place]) MCV 91.1 81.3 - 96.4 fL [facility] ([place]) MCH 30.5 27.1 - 33.3 pg [facility] ([place]) MCHC 33.5 32.3 - 35.7 g/dL [facility] ([place]) RDW CV 13.8 11.1 - 14.9 % [facility] ([place]) RDW SD 46.6 35.7 - 48.1 fL [facility] ([place]) NRBC abs 0.00 0.00 - 0.01 K/cumm [facility] ([place]) Blood 12/18/2024 9:01 AM CDT 12/18/2024 9:31 AM CDT us Windy Magdaleno MD LAB BLOOD ORDERABLES Amalia mccurdy Result [facility] ([place]) 1 [facility] Department [place] [address] * (ABNORMAL) Basic metabolic panel (12/18/2024 9:01 AM CDT) Pathologist [facility] Sodium 137 135 - 145 mmol/L Potassium, pl 4.1 3.3 - 4.9 mmol/L [facility] ([place]) Chloride 96(L) 97 - 110 mmol/L [facility]) CO2 26 22 - 32 mmol/L [facility] ([place]) Anion gap 15 2 - 15 mmol/L [facility] ([place]) BUN 18 6 - 25 mg/dL [facility] ([place]) Creatinine 0.77 0.60 - 1.10 mg/dL [facility] ([place]) Glucose 134 70 - 199 mg/dL [facility] ([place]) Comment: Interpretive Data Fasting glucose >/= 126 mg/dl is diagnostic for diabetes. Fasting is defined as no caloric intake for at least 8 hours. Fasting glucose between 100 mg/dl to 125 mg/dl is diagnostic of prediabetes. In a patient with classic symptoms of hyperglycemia or hyperglycemic crisis, a random glucose >/= 200 mg/dl is diagnostic for diabetes. In the absence of unequivocal hyperglycemia, results should be confirmed by repeat testing. The classification and Diagnosis of Diabetes Diabetes Care 2021; 46: S19-S40. Current interpretive data was last revised 2022. Calcium 9.2 8.5 - 10.3 mg/dL [facility] ([place]) Blood 12/18/2024 9:01 AM CDT 12/18/2024 9:31 AM CDT Windy Magdaleno MD LAB BLOOD ORDERABLES Amalia mccurdy Result [facility] ([place]) 1 [facility] [place] [address] * (ABNORMAL) Aerobic and anaerobic culture and gram stain Wound Breast, left (12/17/2024 8:58 AM CDT) Direct Specimen Exam Stain: Few polymorphonuclear leukocytes seen. Rare Gram Positive Cocci Comment:Testing performed by : [facility], 1 [facility], [place]., [address] Report Final Report: No growth (.) [facility] ([place]) Comment:Testing performed by : [facility], 1 [facility] [place] [address] Wound (Breast, left) 12/17/2024 8:58 AM CDT 12/17/2024 12:37 PM CDT Narrative NACHO [facility] ([place]) - 12/20/2024 9:48 AM CDT Testing performed by [facility] ([phone]) Specimens submitted from normally sterile body sites will have all bacterial morphotypes identified. Specimens that contain grossly mixed yaneli and/or are from body sites that are not normally sterile will be examined for Staphylococcus aureus, Pseudomonas aeruginosa, beta-hemolytic strep, vancomycin-resistant Enterococcus, Bacteroides, Parabacteroides, Clostridium perfringens and fungus. If any of these are isolated, the organism will be reported. Current interpretive data was last revised on 2019. Windy Magdaleno MD LAB MICROBIOLOGY - GENERA L ORDERABLES Final Result Performing Organization Address City/[facility]/ZIP Co de Phone Number GRAC[facility]RINDA [facility] ([place]) 1 [facility] [place] [employer] [place] [address] * POCT glucose (12/17/2024 7:58 AM CDT) Glucose, POC 100 70 - 199 mg/dL Blood 12/17/2024 7:58 AM CDT 12/17/2024 7:58 AM CDT Windy Magdaleno MD LAB POCT ORDERABLES - DEV ICE Final Result [facility]O [facility] ([place]) 1 [facility] [place] [employer] [place] [address] * eGFR (12/17/2024 7:42 AM CDT) Pathologist [facility] eGFR 76 >=60 mL/min/1. 73 m2 Comment: Interpretive Data Reference Interval Normal >/= 90 mL/min/1.73m2 Mildly decreased* 60 - 89 mL/min/1.73m2 Mildly to moderately decreased 45 - 59 mL/min/1.73m2 Moderately to severely decreased 30 - 44 mL/min/1.73m2 Severely decreased 15 - 29 mL/min/1.73m2 Kidney Failure < 15 mL/min/1.73m2 *Relative to young adult level Estimated glomerular filtration rate is determined by the 2020 CKD-EPI equation recommended by the National Kidney Foundation (A Unifying Approach to GFR Estimation: Recommendations of the NKF-ASK Task Force on Reassessing the Inclusion of Race in Diagnosing Kidney Disease, JASN 2020). The CKD-EPI equation should not be used for patients with unstable renal function and has not been validated in children and those over 70. Current interpretive data was last reviewed 2021. Blood 12/17/2024 7:42 AM CDT 12/17/2024 8:03 AM CDT us Windy Magdaleno MD LAB BLOOD ORDERABLES Amalia mccurdy Result [facility] ([place]) 1 [facility] [place] [address] * (ABNORMAL) CBC without differential (12/17/2024 7:42 AM CDT) WBC 13.12(H) 3.80 - 9.90 K/cumm Hgb 15.0 11.9 - 15.5 g/dL [facility] ([place]) Hct 46.1(H) 35.6 - 45.5 % [facility] ([place]) Plt 233 150 - 400 K/cumm [facility] ([place]) MPV 10.1 9.1 - 12.3 fL [facility] ([place]) RBC 4.94 3.90 - 5.20 M/cumm [facility] ([place]) MCV 93.3 81.3 - 96.4 fL [facility] ([place]) MCH 30.4 27.1 - 33.3 pg [facility] ([place]) MCHC 32.5 32.3 - 35.7 g/dL [facility] ([place]) RDW CV 13.9 11.1 - 14.9 % [facility] ([place]) RDW SD 47.7 35.7 - 48.1 fL [facility] ([place]) NRBC abs 0.00 0.00 - 0.01 K/cumm [facility] ([place]) Blood 12/17/2024 7:42 AM CDT 12/17/2024 8:03 AM CDT Windy Magdaleno MD LAB BLOOD ORDERABLES Amalia l Result [facility] ([place]) 1 [facility] [place] [address] * Basic metabolic panel (12/17/2024 7:42 AM CDT) Sodium 137 135 - 145 mmol/L Potassium, pl 4.1 3.3 - 4.9 mmol/L [facility] Chloride 100 97 - 110 mmol/L [facility]) CO2 22 22 - 32 mmol/L [facility] ([place]) Anion gap 15 2 - 15 mmol/L [facility] ([place]) BUN 17 6 - 25 mg/dL [facility] ([place]) Creatinine 0.80 0.60 - 1.10 mg/dL [facility] ([place]) Glucose 107 70 - 199 mg/dL [facility] ([place]) Comment: Interpretive Data Fasting glucose >/= 126 mg/dl is diagnostic for diabetes. Fasting is defined as no caloric intake for at least 8 hours. Fasting glucose between 100 mg/dl to 125 mg/dl is diagnostic of prediabetes. In a patient with classic symptoms of hyperglycemia or hyperglycemic crisis, a random glucose >/= 200 mg/dl is diagnostic for diabetes. In the absence of unequivocal hyperglycemia, results should be confirmed by repeat testing. The classification and Diagnosis of Diabetes Diabetes Care 2021; 46: S19-S40. Current interpretive data was last revised 2022. Calcium 9.1 8.5 - 10.3 mg/dL [facility] ([place]) Blood 12/17/2024 7:42 AM CDT 12/17/2024 8:03 AM CDT us Windy Magdaleno MD LAB BLOOD ORDERABLES Amalia l Result NACHO [facility]NS[facility] ([place]) 1 [facility] [employer] [place] [address] * POCT glucose (12/17/2024 3:03 AM CDT) Glucose, POC 111 70 - 199 mg/dL Blood 12/17/2024 3:03 AM CDT 12/17/2024 3:03 AM CDT us Windy Magdaleno MD LAB POCT ORDERABLES - DEV ICE Final Result Performing Organization Address City/[facility]/ZIP Co de Phone Number NACHO [facility] ([place]) 1 [facility] [employer] [place] [address] * POCT glucose (12/16/2024 8:34 PM CDT) Glucose, POC 172 70 - 199 mg/dL Blood 12/16/2024 8:34 PM CDT 12/16/2024 8:34 PM CDT us Windy Magdaleno MD LAB POCT ORDERABLES - DEV ICE Final Result Performing Organization Address City/[facility]/ZIP Co de Phone Number NACHO J[facility]NS[facility] ([place]) 1 [facility] [place] [address] * POCT glucose (12/16/2024 4:50 PM CDT) Glucose, POC 124 70 - 199 mg/dL Blood 12/16/2024 4:50 PM CDT 12/16/2024 4:50 PM CDT us Windy Magdaleno MD LAB POCT ORDERABLES - DEV ICE Final Result [facility]O [facility] ([place]) 1 [facility] [place] [place] [address] * POCT glucose (12/16/2024 11:35 AM CDT) Glucose, POC 110 70 - 199 mg/dL Blood 12/16/2024 11:3 5 AM CDT 12/16/2024 11:35 AM CDT Windy Magdaleno MD LAB POCT ORDERABLES - DEV ICE Final Result [facility] ([place]) 1 [facility] [employer] [place] [address] * POCT glucose (12/16/2024 7:47 AM CDT) Glucose, POC 109 70 - 199 mg/dL Blood 12/16/2024 7:47 AM CDT 12/16/2024 7:47 AM CDT Windy Magdaleno MD LAB POCT ORDERABLES - DEV ICE Final Result Performing Organization Address City/[facility]/ZIP Co de Phone Number NACHO J[facility]NSON ([place]) 1 [facility] [place] [address] * eGFR (12/16/2024 7:22 AM CDT) eGFR 75 >=60 mL/min/1. 73 m2 Comment: Interpretive Data Reference Interval Normal >/= 90 mL/min/1.73m2 Mildly decreased* 60 - 89 mL/min/1.73m2 Mildly to moderately decreased 45 - 59 mL/min/1.73m2 Moderately to severely decreased 30 - 44 mL/min/1.73m2 Severely decreased 15 - 29 mL/min/1.73m2 Kidney Failure < 15 mL/min/1.73m2 *Relative to young adult level Estimated glomerular filtration rate is determined by the 2020 CKD-EPI equation recommended by the National Kidney Foundation (A Unifying Approach to GFR Estimation: Recommendations of the NKF-ASK Task Force on Reassessing the Inclusion of Race in Diagnosing Kidney Disease, JASN 2020). The CKD-EPI equation should not be used for patients with unstable renal function and has not been validated in children and those over 70. Current interpretive data was last reviewed 2021. Blood 12/16/2024 7:22 AM CDT 12/16/2024 7:27 AM CDT us Windy Magdaleno MD LAB BLOOD ORDERABLES Amalia l Result [facility] ([place]) 1 [facility] [place] [address] * (ABNORMAL) CBC without differential (12/16/2024 7:22 AM CDT) WBC 11.26(H) 3.80 - 9.90 K/cumm Hgb 14.8 11.9 - 15.5 g/dL [facility] ([place]) Hct 43.9 35.6 - 45.5 % [facility] ([place]) Plt 209 150 - 400 K/cumm [facility] ([place]) MPV 9.8 9.1 - 12.3 fL [facility] ([place]) RBC 4.81 3.90 - 5.20 M/cumm [facility] ([place]) MCV 91.3 81.3 - 96.4 fL [facility] ([place]) MCH 30.8 27.1 - 33.3 pg [facility] ([place]) MCHC 33.7 32.3 - 35.7 g/dL [facility] ([place]) RDW CV 13.9 11.1 - 14.9 % [facility] ([place]) RDW SD 47.1 35.7 - 48.1 fL [facility] ([place]) NRBC abs 0.00 0.00 - 0.01 K/cumm [facility] ([place]) Blood 12/16/2024 7:22 AM CDT 12/16/2024 7:27 AM CDT us Windy Magdaleno MD LAB BLOOD ORDERABLES Amalia l Result NACHO [place]) 1 [facility] [place] [address] * Basic metabolic panel (12/16/2024 7:22 AM CDT) Sodium 135 135 - 145 mmol/L Potassium, pl 4.1 3.3 - 4.9 mmol/L [facility] ([place]) Chloride 101 97 - 110 mmol/L [facility] ([place]) CO2 23 22 - 32 mmol/L [facility] ([place]) Anion gap 11 2 - 15 mmol/L [facility] ([place]) BUN 15 6 - 25 mg/dL [facility] ([place]) Creatinine 0.81 0.60 - 1.10 mg/dL [facility] ([place]) Glucose 121 70 - 199 mg/dL [facility] ([place]) Comment: Interpretive Data Fasting glucose >/= 126 mg/dl is diagnostic for diabetes. Fasting is defined as no caloric intake for at least 8 hours. Fasting glucose between 100 mg/dl to 125 mg/dl is diagnostic of prediabetes. In a patient with classic symptoms of hyperglycemia or hyperglycemic crisis, a random glucose >/= 200 mg/dl is diagnostic for diabetes. In the absence of unequivocal hyperglycemia, results should be confirmed by repeat testing. The classification and Diagnosis of Diabetes Diabetes Care 2021; 46: S19-S40. Current interpretive data was last revised 2022. Calcium 9.3 8.5 - 10.3 mg/dL [facility] ([place]) Blood 12/16/2024 7:22 AM CDT 12/16/2024 7:27 AM CDT us Windy Magdaleno MD LAB BLOOD ORDERABLES Amalia l Result NACHO VALDIV[place]) 1 [facility] [employer] [place] [address] * POCT glucose (12/16/2024 1:50 AM CDT) Glucose, POC 145 70 - 199 mg/dL Blood 12/16/2024 1:50 AM CDT 12/16/2024 1:50 AM CDT us Windy Magdaleno MD LAB POCT ORDERABLES - DEV ICE Final Result NACHO [facility]NSON ([place]) 1 [facility] [employer] [place] [address] * (ABNORMAL) POCT glucose (12/15/2024 8:13 PM CDT) Glucose, POC 203(H) 70 - 199 mg/dL Blood 12/15/2024 8:13 PM CDT 12/15/2024 8:13 PM CDT us Windy Magdaleno MD LAB POCT ORDERABLES - DEV ICE Final Result Performing Organization Address City/[facility]/ZIP Co de Phone Number NACHO JOHNSON ([place]) 1 [facility] [employer] [place] [address] * POCT glucose (12/15/2024 5:02 PM CDT) Glucose, POC 148 70 - 199 mg/dL Blood 12/15/2024 5:02 PM CDT 12/15/2024 5:02 PM CDT us Windy Magdaleno MD LAB POCT ORDERABLES - DEV ICE Final Result NACHO JOHNSON ([place]) 1 [facility] [employer] [place] [address] * POCT glucose (12/15/2024 11:49 AM CDT) Glucose, POC 103 70 - 199 mg/dL Blood 12/15/2024 11:4 9 AM CDT 12/15/2024 11:49 AM CDT us Windy Magdaleno MD LAB POCT ORDERABLES - DEV ICE Final Result NACHO [facility] ([place]) 1 [facility] [place] [place] [address] * POCT glucose (12/15/2024 8:09 AM CDT) Glucose, POC 120 70 - 199 mg/dL Blood 12/15/2024 8:09 AM CDT 12/15/2024 8:09 AM CDT us Windy Magdaleno MD LAB POCT ORDERABLES - DEV ICE Final Result Performing Organization Address [facility] Co de Phone Number NACHO JOHNSON ([place]) 1 [facility] [place] [place] [address] * eGFR (12/15/2024 7:29 AM CDT) eGFR 69 >=60 mL/min/1. 73 m2 Comment: Interpretive Data Reference Interval Normal >/= 90 mL/min/1.73m2 Mildly decreased* 60 - 89 mL/min/1.73m2 Mildly to moderately decreased 45 - 59 mL/min/1.73m2 Moderately to severely decreased 30 - 44 mL/min/1.73m2 Severely decreased 15 - 29 mL/min/1.73m2 Kidney Failure < 15 mL/min/1.73m2 *Relative to young adult level Estimated glomerular filtration rate is determined by the 2020 CKD-EPI equation recommended by the National Kidney Foundation (A Unifying Approach to GFR Estimation: Recommendations of the NKF-ASK Task Force on Reassessing the Inclusion of Race in Diagnosing Kidney Disease, JASN 2020). The CKD-EPI equation should not be used for patients with unstable renal function and has not been validated in children and those over 70. Current interpretive data was last reviewed 2021. Blood 12/15/2024 7:29 AM CDT 12/15/2024 7:34 AM CDT us Windy Magdaleno MD LAB BLOOD ORDERABLES Amalia l Result NACHO JOHNSON ([place]) 1 [facility] [place] [address] * CBC without differential (12/15/2024 7:29 AM CDT) WBC 7.58 3.80 - 9.90 K/cumm Hgb 15.5 11.9 - 15.5 g/dL [facility] ([place] Hct 45.3 35.6 - 45.5 % [facility] ([place]) Plt 195 150 - 400 K/cumm [facility] ([place]) MPV 9.7 9.1 - 12.3 fL [facility] ([place] RBC 4.92 3.90 - 5.20 M/cumm [facility] ([place] MCV 92.1 81.3 - 96.4 fL [facility] ([place]) MCH 31.5 27.1 - 33.3 pg [facility] ([place]) MCHC 34.2 32.3 - 35.7 g/dL [facility] ([place]) RDW CV 14.1 11.1 - 14.9 % [facility] ([place] RDW SD 47.7 35.7 - 48.1 fL [facility] ([place]) NRBC abs 0.00 0.00 - 0.01 K/cumm [facility] ([place] Blood 12/15/2024 7:29 AM CDT 12/15/2024 7:34 AM CDT us Windy Magdaleno MD LAB BLOOD ORDERABLES Amalia l Result NACHO JOHNSON ([place]) 1 [facility] [place] [address] * (ABNORMAL) Hemoglobin A1c (12/15/2024 7:29 AM CDT) Hgb A1C 6.6(H) 4.0 - 5.6 % Estimated Average Glucose 143 mg/dL [facility] ([place]) Comment: The ADA recommends reporting an estimated Average Glucose (eAG) with all Hemoglobin A1c results using the equation derived from a study of 507 normal and diabetic adults. Minority populations were underrepresented and children were not included. (Diabetes Care 31:6131-5078, 2008). The eAG is not equivalent to a fasting glucose. Blood 12/15/2024 7:29 AM CDT 12/15/2024 7:34 AM CDT us Windy Magdaleno MD LAB BLOOD ORDERABLES Amalia mccurdy Result NACHO JOHNSON ([place]) 1 [facility] [place] [address] * Lipid panel (12/15/2024 7:29 AM CDT) Cholesterol 161 30 - 199 mg/dL Comment: Interpretive Data Ages < or = 19 years Acceptable: <170 mg/dL Borderline high: 170-199 mg/dL High: >or= 200 mg/dL Ages > or = 20 years Desirable: <200 mg/dL Borderline high: 200-239 mg/dL High: >or= 240 mg/dL Literature References: 1. Expert Panel on Integrated Guidelines for Cardiovascular Health and Risk Reduction in Children and Adolescents. Pediatrics 2011;128:S213 2. NCEP Expert Panel. Circulation 2004;110:227 Current Interpretive Data was last revised on 2018. Triglycerides 82 <=149 mg/dL [facility] ([place]) Comment: Interpretive Data Ages < or = 9 years Acceptable: <75 mg/dL Borderline high: 75-99 mg/dL High: >or= 100 mg/dL Ages 10 to 20 years Acceptable: <90 mg/dL Borderline high: 90-129 mg/dL High: >or= 130 mg/dL Ages > or = 20 years Desirable: <150 mg/dL Borderline high: 150-199 mg/dL High: 200-499 mg/dL Very high: >or= 499 mg/dL Literature References: 1. Expert Panel on Integrated Guidelines for Cardiovascular Health and Risk Reduction in Children and Adolescents. Pediatrics 2011;128:S213 2. NCEP Expert Panel. Circulation 2004;110:227 Current Interpretive Data was last revised on 2018. HDL 70 >=40 mg/dL [facility] ([place]) Comment: Interpretive Data Ages < or = 19 years Acceptable: >45 mg/dL Borderline low: 40-45 mg/dL Low: <40 mg/dL Ages > or = 20 years Desirable: >or= 60 mg/dL Low: <40 mg/dL Literature References: 1. Expert Panel on Integrated Guidelines for Cardiovascular Health and Risk Reduction in Children and Adolescents. Pediatrics 2011;128:S213 2. NCEP Expert Panel. Circulation 2004;110:227 Current Interpretive Data was last revised on 2018. LDL, calculated 76 <=129 mg/dL [facility] ([place]) Comment: Interpretive Data Ages < or = 19 years Acceptable: <110 mg/dL Borderline high: 110-129 mg/dL High: >or= 130 mg/dL Ages > or = 20 years Optimal: <100 mg/dL Near optimal: 100-129 mg/dL Borderline high: 130-159 mg/dL High: >160 mg/dL Calculated using the Liban LDL-C estimating equation. This equation was implemented on 2024. Prior to this date LDL-C was estimated using the Friedewald equation. Literature References: 1. Expert Panel on Integrated Guidelines for Cardiovascular Health and Risk Reduction in Children and Adolescents. Pediatrics 2011;128:S213 2. NCEP Expert Panel. Circulation 2004;110:227 3. Liban Ferrari et al. LAVON Cardiol. 2020 October 25;5(5):540-548. doi: 10.1001/jamacardio.2020.0013 Current Interpretive Data was last revised on 2024. Non-HDL Cholesterol 91 mg/dL [facility] ([place]) Comment: Interpretive Data Ages < or = 19 years Acceptable: <120 mg/dL Borderline high: 120-144 mg/dL High: >145 mg/dL Ages > or = 20 years When triglycerides are >200 mg/dL, Non-HDL cholesterol is a secondary target of therapy with treatment goals that are 30 mg/dL greater than the LDL cholesterol target. Literature References: 1. Expert Panel on Integrated Guidelines for Cardiovascular Health and Risk Reduction in Children and Adolescents. Pediatrics 2011;128:S213 2. NCEP Expert Panel. Circulation 2004;110:227 Current Interpretive Data was last revised on 2018. Chol/HDL ratio 2 [facility] ([place]) Blood 12/15/2024 7:29 AM CDT 12/15/2024 7:34 AM CDT us Windy Magdaleno MD LAB BLOOD ORDERABLES Amalia l Result NACHO JOHNSON ([place]) 1 [facility] [place] [address] * Basic metabolic panel (12/15/2024 7:29 AM CDT) Sodium 136 135 - 145 mmol/L Potassium, pl 4.5 3.3 - 4.9 mmol/L [facility] ([place]) Chloride 100 97 - 110 mmol/L [facility] ([place]) CO2 25 22 - 32 mmol/L [facility] ([place]) Anion gap 11 2 - 15 mmol/L [facility] ([place]) BUN 8 6 - 25 mg/dL [facility] ([place]) Creatinine 0.87 0.60 - 1.10 mg/dL [facility] ([place]) Glucose 113 70 - 199 mg/dL [facility] ([place]) Comment: Interpretive Data Fasting glucose >/= 126 mg/dl is diagnostic for diabetes. Fasting is defined as no caloric intake for at least 8 hours. Fasting glucose between 100 mg/dl to 125 mg/dl is diagnostic of prediabetes. In a patient with classic symptoms of hyperglycemia or hyperglycemic crisis, a random glucose >/= 200 mg/dl is diagnostic for diabetes. In the absence of unequivocal hyperglycemia, results should be confirmed by repeat testing. The classification and Diagnosis of Diabetes Diabetes Care 2021; 46: S19-S40. Current interpretive data was last revised 2022. Calcium 9.0 8.5 - 10.3 mg/dL [facility] ([place]) Blood 12/15/2024 7:29 AM CDT 12/15/2024 7:34 AM CDT us Windy Magdaleno MD LAB BLOOD ORDERABLES Amalia l Result [facility] ([place] [place] [address] * XR Shoulder Left 2 or More Views (12/14/2024 6:36 PM CDT) Anatomical Region Laterality Modality Upper Extremities, Shoulder Left Comp uted Radiography 12/14/2024 7:32 PM CDT Narrative 12/14/2024 7:33 PM CDT EXAM DESCRIPTION: XR SHOULDER LEFT 2 OR MORE VIEWS REASON FOR STUDY: pain No Recent Injury. Fall back in JUL 2024. No Hx of Left Shoulder fxs, dislocations or surgery. TECHNIQUE: Four radiographic view(s) of the left shoulder . COMPARISON: 03/06/2024. FINDINGS: BONES/JOINTS: There is osteoarthritis of both the acromioclavicular and glenohumeral joints. There is degenerative change at the greater tuberosity. Findings are stable in appearance compared to the prior examination. No acute fracture or dislocation. The visualized ribs are intact. SOFT TISSUES: Within normal limits. IMPRESSION: Osteoarthritis, stable. No acute fracture or dislocation. THIS IS AN ELECTRONICALLY VERIFIED FINAL REPORT 12/14/2024 7:33 PM - Electronically signed by Patricia Yu M.D. TW: TW Report ID: [id number] Reading Location: [place] [address] Procedure Note Patricia Yu MD - 12/14/2024 EXAM DESCRIPTION: XR SHOULDER LEFT 2 OR MORE VIEWS REASON FOR STUDY: pain No Recent Injury. Fall back in JUL 2024. No Hx of Left Shoulder fxs, dislocations or surgery. TECHNIQUE: Four radiographic view(s) of the left shoulder . COMPARISON: 03/06/2024. FINDINGS: BONES/JOINTS: There is osteoarthritis of both the acromioclavicular and glenohumeral joints. There is degenerative change at the greatertuberosity. Findings are stable in appearance compared to the prior examination. Noacute fracture or dislocation. The visualized ribs are intact. SOFT TISSUES: Within normal limits. IMPRESSION: Osteoarthritis, stable. No acute fracture or dislocation. THIS IS AN ELECTRONICALLY VERIFIED FINAL REPORT 12/14/2024 7:33 PM - Electronically signed by Patricia Yu M.D. TW: TW Report ID: [id number] Reading Location: [id number] Windy Magdaleno MD IMG XR PROCEDURES Final R esult * (ABNORMAL) Oxycodone Confirmation, Urine (12/14/2024 4:18 PM CDT) Oxycodone Conf, Ur Confirmed Positive(A) CutOff 50 ng/mL Comment:Testing performed by : [facility], [address] [place]., [address] Oxymorphone Conf, Ur Does Not Confirm CutOff 50 ng/mL [facility] ([place]) Comment: Interpretive Data This test detects the presence or absence of drug compounds using LC Tandem mass spectrometry and is not intended to assess compliance with prescribed medications. While this test is highly specific, false positive and false negative results may occur in very rare circumstances. Contact the laboratory for consultation, if needed. Performance characteristics were determined by the [facility] in a manner consistent with CLIA requirement and has not been cleared or approved by the U.S. Food and Drug Administration. Current interpretive data was last revised 2020. Testing performed by: [facility], [address] [place]., [address] Urine 12/14/2024 4:18 PM CDT 12/15/2024 3:52 PM CDT Windy Magdaleno MD LAB URINE ORDERABLES Amalia l Result N[facility]O JOHNSON ([place]) 1 [facility] [place] [address] * (ABNORMAL) Drugs of Abuse Screen, Urine with Reflex Confirmation (12/14/2024 4:18 PM CDT) Amphetamine, ur Not Detected CutOff 500ng/mL Comment: Interpretive Data - Amphetamines: Samples containing greater than 500 ng/mL d-methamphetamine or other cross-reacting amphetamine compounds are reported as positive. Amphetamine immunoassays are subject to significant false positive rates due to cross-reactivity of non-amphetamine drugs. Confirmatory testing required for definitive results. Current Interpretive Data was last reviewed 2023. Barbiturates, ur Not Detected CutOff 200ng/mL [facility] ([place]) Comment: Interpretive Data - Barbiturates: Samples containing greater than 200 ng/mL secobarbital or other cross-reacting barbiturate compounds are reported as positive. False positive and false negative results are possible. Confirmatory testing required for definitive results. Current Interpretive Data was last reviewed 2023. Benzodiazepines, ur Not Detected CutOff 100ng/mL [facility] ([place]) Comment: Interpretive Data - Benzodiazepines: Samples containing greater than 100 ng/mL nordiazepam or other cross-reacting compounds are reported as positive. False positive and false negative results are possible. Confirmatory testing required for definitive results. Current Interpretive Data was last reviewed 2023. Cannabinoids, ur Screen Positive, presumptive (A) CutOff 50 ng/mL [facility] ([place]) Comment: Interpretive Data - Cannabinoids: Samples containing greater than 50 ng/mL delta-9 THC -COOH or other cross- reacting compounds are reported as positive. False positive and false negative results are possible. Confirmatory testing required for definitive results. Current Interpretive Data was last reviewed 2023. Cocaine, ur Not Detected CutOff 150ng/mL [facility] ([place]) Comment: Interpretive Data - Cocaine: Samples containing greater than 150 ng/mL benzoylecgonine or other cross- reacting compounds are reported as positive. False positive and false negative results are possible. Confirmatory testing required for definitive results. Current Interpretive Data was last reviewed 2023. Fentanyl, Ur Not Detected CutOff 5 ng/mL [facility] ([place]) Comment: Interpretive Data - Fentanyl: Samples containing greater than 5 ng/mL norfentanyl, fentanyl, or other cross-reacting fentanyl compounds are reported as positive. False positive and false negative results are possible. Confirmatory testing required for definitive results. Current Interpretive Data was last reviewed 2023. Methadone, ur Not Detected CutOff 300ng/mL [facility] ([place]) Comment: Interpretive Data - Methadone: Samples containing greater than 300 ng/mL d,l-methadone or other cross-reacting compounds are reported as positive. False positive and false negative results are possible. Confirmatory testing required for definitive results. Current Interpretive Data was last reviewed 2023. Opiates, ur Not Detected CutOff 300ng/mL [facility] ([place]) Comment: Interpretive Data - Opiates: Samples containing greater than 300 ng/mL morphine or other cross-reacting compounds are reported as positive. False positive and false negative results are possible. Confirmatory testing required for definitive results. Current Interpretive Data was last reviewed 2023. Oxycodone, ur Screen Positive, presumptive (A) CutOff 100ng/mL [facility] ([place]) Comment: Interpretive Data - Oxycodone: Samples containing greater than 100 ng/mL oxycodone or other cross-reacting compounds are reported as positive. False positive and false negative results are possible. Confirmatory testing required for definitive results. Current Interpretive Data was last reviewed 2023. Phencyclidine, ur Not Detected CutOff 25 ng/mL [facility] ([place]) Comment: Interpretive Data - Phencyclidine: Samples containing greater than 25 ng/mL phencyclidine or other cross-reacting compounds are reported as positive. False positive and false negative results are possible. Confirmatory testing required for definitive results. Current Interpretive Data was last reviewed 2023. Urine Creatinine 60 mg/dL [facility] ([place]) Comment: Interpretive Data Urine Creatinine: < 10 mg/dL is extremely dilute = or > 10 but < 20 mg/dL is dilute = or > 20 mg/dL is normal Current Interpretive Data was last revised on 2017. Urine 12/14/2024 4:18 PM CDT 12/14/2024 4:43 PM CDT Narrative [facility] ([place]) - 12/14/2024 5:13 PM CDT Drug of Abuse screening is performed by immunoassay for medical purposes only. This is not to be used for Pain Management purposes. If Detected, confirmation testing will be performed for Amphetamines, Cocaine, Fentanyl, Methadone, Opiates, Oxycodone or Phencyclidine. us Windy Magdaleno MD LAB URINE ORDERABLES Amalia l Result [facility] ([place]) 1 [facility] [employer] [place] [address] * Urinalysis reflex to microscopic and culture Urine (12/14/2024 4:18 PM CDT) Color, ur Straw Yellow Clarity, ur Clear Clear [facility] ([place]) Specific gravity, ur 1.008 1.003 - 1.030 [facility] ([place]) pH, urine 6.5 [facility] ([place]) Comment: Interpretive Data U rine pH is affected by diet, medications, systemic acid-base disturbances, and renal tubular function. pH may affect urinary stone formation. For example, urine pH below 6.0 may help reduce the tendency for calcium phosphate stones and pH greater than 6.0 may reduce the tendency for uric acid stone formation. Source: [facility] Current Interpretive Data was last revised on 2017 Protein, ur ql Negative Negative [facility] ([place]) Glucose, ur ql Negative Negative [facility] ([place]) Ketones, ur Negative Negative [facility] ([place]) Bilirubin, ur Negative Negative [facility] ([place]) Blood, ur Negative Negative [facility] ([place]) Urobilinogen, ur <2.0 <2.0 mg/dL [facility] ([place]) Nitrite, ur Negative Negative [facility] ([place]) Leukocyte esterase, ur Negative Negative [facility] ([place]) UA reflex comment Reflex conditions for microscopic UA and culture not met. [facility] ([place]) Urine 12/14/2024 4:18 PM CDT 12/14/2024 4:43 PM CDT Windy Magdaleno MD LAB MICROBIOLOGY - GENERA L ORDERABLES Final Result [facility] ([place]) 1 [facility] Department of [employer] [place] [address] * eGFR (12/14/2024 11:54 AM CDT) eGFR 79 >=60 mL/min/1. 73 m2 Comment: Interpretive Data Reference Interval Normal >/= 90 mL/min/1.73m2 Mildly decreased* 60 - 89 mL/min/1.73m2 Mildly to moderately decreased 45 - 59 mL/min/1.73m2 Moderately to severely decreased 30 - 44 mL/min/1.73m2 Severely decreased 15 - 29 mL/min/1.73m2 Kidney Failure < 15 mL/min/1.73m2 *Relative to young adult level Estimated glomerular filtration rate is determined by the 2020 CKD-EPI equation recommended by the National Kidney Foundation (A Unifying Approach to GFR Estimation: Recommendations of the NKF-ASK Task Force on Reassessing the Inclusion of Race in Diagnosing Kidney Disease, JASN 2020). The CKD-EPI equation should not be used for patients with unstable renal function and has not been validated in children and those over 70. Current interpretive data was last reviewed 2021. Blood 12/14/2024 11:5 4 AM CDT 12/14/2024 12:00 PM CDT us Naomi Page MD LAB BLOOD ORDERABLES Final Re sult [facility] ([place]) 1 [facility] Department of Laboratories [place], [place] [id number] * (ABNORMAL) CBC without differential (12/14/2024 11:54 AM CDT) WBC 13.99(H) 3.80 - 9.90 K/cumm Hgb 16.2(H) 11.9 - 15.5 g/dL [facility] ([place]) Hct 48.0(H) 35.6 - 45.5 % [facility] ([place]) Plt 264 150 - 400 K/cumm [facility] ([place]) MPV 9.7 9.1 - 12.3 fL [facility] ([place]) RBC 5.22(H) 3.90 - 5.20 M/cumm [facility] ([place]) MCV 92.0 81.3 - 96.4 fL [facility] ([place]) MCH 31.0 27.1 - 33.3 pg [facility] MCHC 33.8 32.3 - 35.7 g/dL [facility] RDW CV 14.0 11.1 - 14.9 % [facility] RDW SD 47.4 35.7 - 48.1 fL [facility] ([place]) NRBC abs 0.00 0.00 - 0.01 K/cumm [facility] ([place]) Blood 12/14/2024 11:5 4 AM CDT 12/14/2024 12:00 PM CDT us Naomi Page MD LAB BLOOD ORDERABLES Final Re sult [facility] ([place]) 1 [facility] Department [place] [address] * Comprehensive metabolic panel (12/14/2024 11:54 AM CDT) Sodium 137 135 - 145 mmol/L Potassium, pl 4.4 3.3 - 4.9 mmol/L [facility] ([place]) Chloride 98 97 - 110 mmol/L [facility] ([place]) CO2 25 22 - 32 mmol/L [facility] Anion gap 14 2 - 15 mmol/L [facility] BUN 10 6 - 25 mg/dL [facility] ([place]) Creatinine 0.78 0.60 - 1.10 mg/dL [facility] Glucose 108 70 - 199 mg/dL [facility] ([place]) Comment: Interpretive Data Fasting glucose >/= 126 mg/dl is diagnostic for diabetes. Fasting is defined as no caloric intake for at least 8 hours. Fasting glucose between 100 mg/dl to 125 mg/dl is diagnostic of prediabetes. In a patient with classic symptoms of hyperglycemia or hyperglycemic crisis, a random glucose >/= 200 mg/dl is diagnostic for diabetes. In the absence of unequivocal hyperglycemia, results should be confirmed by repeat testing. The classification and Diagnosis of Diabetes Diabetes Care 2021; 46: S19-S40. Current interpretive data was last revised 2022. Calcium 9.7 8.5 - 10.3 mg/dL [facility] ([place]) Bilirubin, total 0.4 0.1 - 1.2 mg/dL [facility] ([place]) Protein, pl 7.2 6.5 - 8.5 g/dL [facility] ([place]) Albumin 4.5 3.5 - 5.0 g/dL [facility] ([place]) Alk phos 106 40 - 130 Units/L [facility] ([place]) ALT 18 7 - 45 Units/L [facility] ([place]) AST 19 10 - 45 Units/L [facility] ([place]) Blood 12/14/2024 11:5 4 AM CDT 12/14/2024 12:00 PM CDT us Naomi Page MD LAB BLOOD ORDERABLES Final Re sult [facility] 1 [facility] [place] [address] * NM ARTHROCENTESIS ASPIR&/INJ MAJOR JT/BURSA W/O US (12/04/2024 1:30 PM CDT) Narrative Helder Velazquez MD - 12/04/2024 1:30 PM CDT Helder Velazquez MD 12/06/2024 11:18 AM Large Joint (Hip, Knee, Shoulder) Injection: R knee Performed by: Jennifer Bolden PA Authorized by: Jennifer Bolden PA Large Joint Injection/Aspiration: Consent Given by: Patient Site marked: the procedure site was marked Timeout: prior to procedure the correct patient, procedure, and site was verified Verbal consent obtained: Yes Supporting Documentation: Indications: Pain Procedure Details: Location: Knee Site: R knee Needle Size: 22 G Approach: Anterolateral Ultrasound guided: No Fluroscopic guidance: No Medications: 80 mg methylPREDNISolone acetate 80 mg/mL; 3 mL lidocaine 20 mg/mL (2 %) Patient tolerance: Patient tolerated the procedure well with no immediate complications us Jennifer GRIFFITH IN CLINIC/BEDSIDE ORD ERABLES Final Result * XR Knee Right 4 or More Views (12/04/2024 1:01 PM CDT) Anatomical Region Laterality Modality Lower Extremities, Knee Right Digital Radiography Narrative 12/04/2024 1:57 PM CDT Radiographs taken of the right knee today reveal moderate degenerative changes with subchondral sclerosis, osteophyte formation, and diminished joint space. us Jennifer GRIFFITH IMG XR PROCEDURES Fin al Result * XR Outside Reference (11/30/2024 2:29 PM CDT) Narrative [facility] - 11/30/2024 2:29 PM CDT This order has been auto-finalized and does not contain a result. us Not In File Miscellaneous IMG XR PROCEDURES Amalia l Result [facility] * MRI Foot Left WO Contrast (11/28/2024 1:36 PM CDT) Anatomical Region Laterality Modality Lower Extremities Left Magnetic Reson ance 11/29/2024 9:29 AM CDT Narrative 11/29/2024 9:38 AM CDT EXAM DESCRIPTION: MRI FOOT LEFT WO CONTRAST REASON FOR STUDY: M64.375A, M84.374A, CHRONIC PAIN, SUSPECT LIGAMENIOUS TEAR, PLAIN FILMS NON DIAGNOSTIC AND SUSPECTED BONE OR SOFT TISSUE NEOPLASM Patient has continued pain from fall in July, pain goes from MTP jts across top of foot and into central/lateral tarsal area, RX states SUSPECT LIGAMENIOUS TEAR, PLAIN FILMS ([facility], 09/13/24) NON DIAGNOSTIC AND SUSPECTED BONE OR SOFT TISSUE NEOPLASM Plantar plate and stress fracture second metatarsal TECHNIQUE: Multiplanar, multisequence MRI of the left foot was performed without contrast . COMPARISON: None FINDINGS: Bones and Joints: Mild polyarticular osteoarthritis in the midfoot and at the 1st metatarsophalangeal joint. There is subchondral cyst-like change in the 1st and 4th metatarsal bases. Small effusion at the 1st metatarsophalangeal joint. Soft Tissues: No mass. Fluid in the 1st intermetatarsal bursa. Extensor Tendons: Intact. Flexor Tendons: Intact. Fluid in the flexor digitorum tendon sheath at the master knot of Sajan. Lisfranc Ligament: Intact. Other: No other finding. IMPRESSION: No acute findings. Mild osteoarthritis. Fluid in the 1st intermetatarsal bursa which could be correlated for symptoms of bursitis. Flexor digitorum tenosynovitis at the master knot of Sajan, which could reflect intersection syndrome. THIS IS AN ELECTRONICALLY VERIFIED FINAL REPORT 11/29/2024 9:38 AM - Electronically signed by Eulogio Baugh M.D. JR: Report ID: [id number] Reading Location: [place] [address] Procedure Note Eulogio Baugh MD - 11/29/2024 EXAM DESCRIPTION: MRI FOOT LEFT WO CONTRAST REASON FOR STUDY: M64.375A, M84.374A, CHRONIC PAIN, SUSPECT LIGAMENIOUSTEAR, PLAIN FILMS NON DIAGNOSTIC AND SUSPECTED BONE OR SOFT TISSUE NEOPLASM Patient has continued pain from fall in July, pain goes from MTP jts across top of foot and into central/lateral tarsal area, RX statesSUSPECT LIGAMENIOUS TEAR, PLAIN FILMS ([facility], 09/13/24) NON DIAGNOSTIC AND SUSPECTEDBONE OR SOFT TISSUE NEOPLASM Plantar plate and stress fracture secondmetatarsal TECHNIQUE: Multiplanar, multisequence MRI of the left foot was performed without contrast . COMPARISON: None FINDINGS: Bones and Joints: Mild polyarticular osteoarthritis in the midfoot and atthe 1st metatarsophalangeal joint. There is subchondral cyst-like change inthe 1st and 4th metatarsal bases. Small effusion at the 1stmetatarsophalangeal joint. Soft Tissues: No mass. Fluid in the 1st intermetatarsal bursa. Extensor Tendons: Intact. Flexor Tendons: Intact. Fluid in the flexor digitorum tendon sheath atthe master knot of Sajan. Lisfranc Ligament: Intact. Other: No other finding. IMPRESSION: No acute findings. Mild osteoarthritis. Fluid in the 1st intermetatarsal bursa which could be correlated forsymptoms of bursitis. Flexor digitorum tenosynovitis at the master knot of Sajan, which could reflect intersection syndrome. THIS IS AN ELECTRONICALLY VERIFIED FINAL REPORT 11/29/2024 9:38 AM - Electronically signed by Eulogio Baugh M.D. JR: Report ID: [id number] Reading Location: [place] [address] Galilea Precious Thouvenot DPM IMG MRI PROCEDURES Amalia l Result * HEPATITIS C SCREENING (02/23/2022) SCRIBED HCV ab negative Comment:care everywhere [facility] Historical Provider MD HEALTH MAINTENANCE Final Result from Last 3 Months or Most Recently Relevant to Health Maintenance Insurance [employer] Advance Directives For more information, please contact: [phone] * Full Code (Latest Code Status on File) Date Activated Date Inactivated Comments 12/14/2024 2:17 PM 12/19/2024 5:06 PM * Full Code Date Activated Date Inactivated Comments 01/17/2018 8:25 PM 01/18/2018 6:25 PM * Full Code Date Activated Date Inactivated Comments 01/17/2018 11:55 AM 01/17/2018 8:25 PM Care Teams Cloth Wire Weaver Relationship Specialty Start Date End Date Joni Ortega MD [address] [place] [address] PCP - General Family Medicine 08/28/24
--- OUTSIDE RECORDS SUMMARY | 2025-02-14 11:47 | XMS_ITS | Encounter Summary ---
Author Organization [facility] Address [address] [place] [address] Phone Care Team Providers Care Humid System Operator Name Role Phone Marvin Shaikh MD Unavailable [phone] John Paul Sharif MD Unavailable [phone] Joni Manning MD Unavailable Mark Bettencourt DO Unavailable [phone] Joni Ortega MD Primary Care Provider [phone] Gabrielle Jones MD Unavailable Toni Wood MD Unavailable [phone] Reason for Visit * Reason Comments Medication Refill Encounter Details Date Type Department Care Team (Late st Contact Info) Description 2021 Refill [facility] [address] [place] [address] Joni Ortega MD [address] [address] Medication Refill Social History Tobacco Use Types [...] st Contact Info) Description 05/15/2025 11:00 AM MANAGER PROJECT Office Visit [facility] - Family [facility] [address] [place] [address] Joni Ortega MD [address] [address] documented as of this encounter Visit Diagnoses Diagnosis Anxiety Anxiety state, unspecified documented in this encounter Additional Health Concerns Assessment Noted Time PHQ-9 Depression Total Score: 0 11/12/19 22 12:00 PM CDT documented as of this encounter Care Teams Humid System Operator Relationship Specialty Start Date End Date Joni Ortega MD #[address] [address] PCP - General Family Medicine 12/26/20 Marvin Shaikh MD [address] [place] [address] Consulting Physician Oncology 07/22/17 John Paul Sharif MD [address] [place] [address] Consulting Physician Orthopaedic Surgery 07/22/17 Joni Manning MD [address] [facility] [address] [place] [address] Consulting Physician Neurology 02/15/18 Mark Bettencourt DO [address] [facility] [place] [address] Gastroenterology 06/07/18 Gabrielle Jones MD #[address] [facility] [address] [place] [address] Consulting Physician Orthopaedic Surgery 09/17/24 Toni Wood MD #[address] [facility] [address] [place] [address] Consulting Physician General Surgery 01/25/25 documented as of this encounter
--- OUTSIDE RECORDS SUMMARY | 2025-02-14 11:47 | XMS_ITS | Encounter Summary ---
Author Organization [facility] Address [address] [place] [address] Phone Care Team Providers Care Laborer Prestressed Concrete Name Role Phone Marvin Shaikh MD Unavailable John Paul Sharif MD Unavailable Joni Manning MD Unavailable Mark Bettencourt DO Unavailable [phone] Joni Ortega MD Primary Care Provider Gabrielle Jones MD Unavailable Toni Wood MD Unavailable Reason for Visit * Reason Onset Date Comments Referral 02/11/2021 Encounter Details Date Type Department Care Team (Late st Contact Info) Description 02/11/2021 Telephone [facility] - [facility] [place], [place] [address] [place] [address] Joni Ortega MD [address] [address] Referral Social History Tobacco Use Types Packs/Day [...] get her the referral. Please call patient. [phone] documented in this encounter Plan of Treatment Upcoming Encounters Date Type Department Care Team (Late st Contact Info) Description 05/15/2025 11:00 AM INFANT TODDLER LEAD TEACHER Office Visit [facility] - Family Medicine [facility] [address] [place] [address] Joni Ortega MD [address] [address] documented as of this encounter Visit Diagnoses Not on filedocumented in this encounter Additional Health Concerns Assessment Noted Time PHQ-9 Depression Total Score: 0 05/02/20 20 10:00 AM INFANT TODDLER LEAD TEACHER documented as of this encounter Care Teams Laborer Prestressed Concrete Relationship Specialty Start Date End Date Joni Ortega MD [address] [place] [address] PCP - General Family Medicine 12/26/20 Marvin Shaikh MD [address] [place] [address] Consulting Physician Oncology 07/22/17 John Paul Sharif MD [address] [facility] [address] [place] [address] Consulting Physician Orthopaedic Surgery 07/22/17 Joni Manning MD [address] [facility] [address] [place] [address] Consulting Physician Neurology 02/15/18 Mark Bettencourt DO 4 [facility] [address] [place] [address] Gastroenterology 06/07/18 Gabrielle Jones MD [address] [facility] [address] [place] [address] Consulting Physician Orthopaedic Surgery 09/17/24 Toni Wood MD [address] [facility] [address] [place] [address] Consulting Physician General Surgery 01/25/25 documented as of this encounter
--- OUTSIDE RECORDS SUMMARY | 2025-02-14 11:47 | XMS_ITS | Encounter Summary ---
Author Organization [facility] Address [address] [place] [address] Phone Care Team Providers Care Liner Reroll Tender Name Role Phone Marvin Shaikh MD Unavailable John Paul Sharif MD Unavailable Joni Manning MD Unavailable [phone] Mark Bettencourt DO Unavailable [phone] Joni Ortega MD Primary Care Provider Gabrielle Jones MD Unavailable Toni Wood MD Unavailable Reason for Visit * Reason Comments Medication Refill Encounter Details Date Type Department Care Team (Late st Contact Info) Description 10/09/2024 Refill [facility] [address] [place] [address] Nawaf Mancilla MD #[address] [address] Medication Refill Social History Tobacco Use Types [...] st Contact Info) Description 05/15/2025 11:00 AM CHILDCARE DIRECTOR Office Visit [facility] - Family Medicine [facility] [address] [place] [address] Joni Ortega MD [address] [facility] [place] [address] documented as of this encounter Visit Diagnoses Diagnosis Humeral head fracture, left, closed, initial encounter documented in this encounter Additional Health Concerns Assessment Noted Time PHQ-9 Depression Total Score: 0 09/14/19 25 2:00 PM CDT documented as of this encounter Care Teams Liner Reroll Tender Relationship Specialty Start Date End Date Joni Ortega MD [address] [facility] [place] [address] PCP - General Family Medicine 12/26/20 Marvin Shaikh MD [address] [place] [address] Consulting Physician Oncology 07/22/17 JohnP aul Sharif MD [address] [place] [address] Consulting Physician Orthopaedic Surgery 07/22/17 Joni Manning MD 4 [facility] [address] [place] [address] Consulting Physician Neurology 02/15/18 Mark Bettencourt DO 4 [facility] [address] [place] [address] Gastroenterology 06/07/18 Gabrielle Jones MD [address] [address] Consulting Physician Orthopaedic Surgery 09/17/24 Toni Wood MD [address] [address] Consulting Physician General Surgery 01/25/25 documented as of this encounter
== END 2025-02-14 11:10 | disposition home or self-care (01) ==
LOC: ANHED 11:03
PROVIDERS: Emergency Provider Emergency Medicine
DX: T63.451A Toxic effect of venom of hornets, accidental (unintentional), initial encounter (principal); J45.909 Unspecified asthma, uncomplicated; E78.5 Hyperlipidemia, unspecified; G89.4 Chronic pain syndrome; M79.7 Fibromyalgia; F41.9 Anxiety disorder, unspecified; F17.210 Nicotine dependence, cigarettes, uncomplicated; Z98.49 Cataract extraction status, unspecified eye; Z85.6 Personal history of leukemia; Z86.73 Personal history of transient ischemic attack (TIA), and cerebral infarction without residual deficits; Z85.3 Personal history of malignant neoplasm of breast; Z90.49 Acquired absence of other specified parts of digestive tract
CPT/HCPCS: 99283; A9270; J7512

== ENCOUNTER 2025-05-10 12:20 | Emergency (ER) | payer MEDICARE, MEDICAID, SELFPAY ==
[2025-05-10 12:29] VITALS: BP 133/81; PULSE 91; RESP 16; TEMP 36.3; O2SAT 95
--- NOTE | 2025-05-10 12:43 | ED.FEMALEGU ---
HPI - Female Genitourinary General Chief complaint: Urogenital-Female Stated complaint: Uti Symptoms Time Seen by Provider: 05/10/25 12:30 Source: patient and RN notes reviewed Mode of arrival: ambulatory Limitations: no limitations History of Present Illness HPI Narrative: 74-year-old female presents Express Care complaining of urinary symptoms for 5 days. Patient reports having hesitancy, incontinence, nocturia increased frequency, low back pain. Patient denies any fevers, dysuria, abdominal pain, body aches, chills, nausea, vomiting, diarrhea, flank pain, blood in urine, vaginal bleeding, vaginal discharge, or any other symptoms. Patient has not taken anything [id number] for symptoms. Patient denies any significant past medical history. Related Data Home Medications ?Medication ?Instructions ?Recorded ?Confirmed ?Last Taken ?Type albuterol sulfate 90 mcg/actuation 2 puff inhalation QID PRN 06/22/19 01/06/24 Unknown History aerosol inhaler (ProAir HFA) Shortness of breath oxycodone-acetaminophen 10 mg-325 1 - 2 tablet PO Q4-6H PRN Pain, 06/22/19 01/06/24 11/15/23 06:00 History mg tablet Moderate amitriptyline 75 mg tablet 75 mg PO HS 12/29/21 01/06/24 11/14/23 19:00 History Allergies Allergy/AdvReac Type Severity Reaction Status Date / Time erythromycin base Allergy Unknown Hives Verified 02/14/25 10:18 tramadol Allergy Unknown Hives Verified 02/14/25 10:18 Sulfa (Sulfonamide AdvReac Nausea Verified 02/14/25 10:18 Antibiotics) Review of Systems Review of Systems: CONSTITUTIONAL: Denies fever, chills, body aches, or sweats. EYES: Denies visual changes, redness, or discharge. ENT: Denies rhinorrhea, congestion, sore throat, or otalgia. CARDIOVASCULAR: Denies chest pain, palpitations, or edema. RESPIRATORY: Denies cough or dyspnea. GASTROINTESTINAL: Denies abdominal pain, nausea, vomiting, or diarrhea. GENITOURINARY: Positive for incontinence, hesitancy, nocturia, increased frequency. Negative for hematuria, vaginal bleeding, vaginal discharge. SKIN: Denies rash or itching. MUSCULOSKELETAL: Positive for low back pain, negative for flank pain, joint pain, or myalgia. NEUROLOGIC: Denies headache, numbness, or weakness. PSYCHIATRIC: Denies anxiety or depression. All other systems reviewed are negative, except as documented in HPI. PMFSH Past Medical History Medical History Asthma Tobacco abuse Chronic pain syndrome On long-term opioid therapy. Dyslipidemia Chronic obstructive pulmonary disease Transient ischemic attack (2020) Cancer of left breast Status post lumpectomy. Acute myeloid leukemia Fibromyalgia Anxiety Surgical History Surgical History History of incision and drainage Incision and drainage of complex left breast abscess 11/16/23 History of lumpectomy of left breast History of tonsillectomy History of cholecystectomy History of cataract extraction Family History Family History Other Unknown family medical history Social History Social History Social History: Surrogate medical decision maker: Lisa Alvarado, friend. Code status: Full code. Smoking packs per day: 0.4 Smoking cigarettes per day: 8.0 Years smoked: 10 Smoking pack-years: 4.00 Smoking status: Current every day smoker Alcohol intake: former Alcohol use details: No recent alcohol use. Substance use: current Substance use type: marijuana and painkillers Do You Feel Safe in your Home?: Yes Lack of Transportation: No Lack of Food: Never True Current Housing: I Have Housing Concerned About Future Housing: No Difficulty Paying Gas/Electric Bills: No Difficulty Paying for Meds: No Currently Unemployed: No Education: Decline to Answer Difficulty w/ Childcare or Family Care: No Living arrangements: alone Additional living arrangements comments: . Lives in her own apartment in [place] with her [place] blue cat who is aptly named Blue. Spiritual care concerns: No Comments At the time of my signature, I reviewed and agree with the nursing past medical, surgical, social, and family history. There is no relevant family history pertinent to the patient complaint. Exam Narrative: GENERAL: This is a well-nourished, well-developed adult, in no apparent distress. They are non ill-appearing, nontoxic appearing. HEAD: normocephalic, atraumatic. EYES: Sclera clear/white. Vision is grossly intact. Conjunctiva normal bilaterally. Extraocular movements intact. EARS: External ears normal,Hearing grossly intact. NOSE: External nose normal THROAT: Mucous membranes moist NECK: Normal range of motion CARDIOVASCULAR: Regular rate and rhythm. Normal S1-S2. No clicks, gallops, rubs, murmurs. RESPIRATORY: Respiratory rate normal, respiratory effort nonlabored, no respiratory distress. Lung sounds clear to auscultation throughout. Lung sounds equal bilaterally. No adventitious lung sounds. GASTROINTESTINAL: Abdomen soft, flat, mild suprapubic tenderness to palpation, nondistended. Bowel sounds are active. No hepato-splenomegaly, or palpable masses. No guarding or rigidity. No rebound tenderness. SKIN: warm, Dry, intact with no suspicious lesions or rash, good texture and turgor. NEURO: awake, alert, and oriented to person, place and time. There were no obvious focal neurologic abnormalities. EXTREMITIES: No joint tenderness, effusion, or edema noted. BACK: Nontender without deformity. No CVA tenderness. Course Course Emergency Course: Portions of this record may have been created with voice recognition software Level of Care: Express Care Visit Vital Signs Vital signs: Vital Signs Temperature 97.3 F L 05/10/25 12:29 Pulse Rate 91 05/10/25 12:29 Respiratory Rate 16 05/10/25 12:29 Blood Pressure 133/81 05/10/25 12:29 Pulse Oximetry 95 05/10/25 12:29 Oxygen Delivery Room Air 05/10/25 12:29 Temperature 97.3 F L 05/10/25 12:29 Pulse Rate 91 05/10/25 12:29 Respiratory Rate 16 05/10/25 12:29 Blood Pressure 133/81 05/10/25 12:29 Pulse Oximetry 95 05/10/25 12:29 Oxygen Delivery Room Air 05/10/25 12:29 MDM - Female Genitourinary MDM Narrative Medical decision making narrative: Urine dipstick with blood in urine. Otherwise unremarkable. Urine culture pending. Symptoms suspicious for UTI. Will treat with cephalexin. Discussed physical exam findings. Advised supportive measures and signs/symptoms to go to the ER. Pt is appropriate for outpt treatment and f/u. Differential Diagnosis Differential diagnosis: Likely urinary tract infection, cystitis and other (Pyelonephritis) Lab Data Attestation: I reviewed the patient's lab results. Discharge Plan Discharge Clinical Impression: Urinary tract infection Qualifiers: Urinary tract infection type: site unspecified Hematuria presence: with hematuria Qualified Code(s): N39.0 - Urinary tract infection, site not specified Patient Disposition: Home Condition: Stable Instructions: Antibiotic Form, Urinary Tract Infection in Older Adults (ED) Additional Instructions: Take the antibiotic as prescribed The urine will be sent of for a culture to identify what type of bacteria is causing your infection. If the culture shows that the antibiotic will not get rid of your infection, you will be notified and a new antibiotic will be called in for you. Increase water intake you will need to follow up with your PCP 3-5 days. Go to the ER for any worsening symptoms, abdominal pain, flank pain, fevers, nausea, vomiting, or any other concerns Patient Language: Tristanian Prescriptions: New cephalexin 500 mg capsule 500 mg PO BID 5 Days Qty: 10 0RF No Action oxycodone-acetaminophen 10-325 mg Tablet 1 - 2 tablet PO Q4-6H PRN (Reason: Pain, Moderate) Patient Comments: Patient states she took her oxycodone 7/4 unknown time albuterol sulfate [ProAir HFA] 90 mcg/actuation Hfa Aerosol Inhaler 2 puff INHALATION QID PRN (Reason: Shortness of breath) amitriptyline 75 mg Tablet 75 mg PO HS Patient Comments: Patient states she took it this morning. AMS. Patient has had problems with this medication in the past. Follow-up/Referrals: PHYSICIAN,E COMMERCE ANALYST [Primary Care Provider, Internal Medicine] Time of Disposition: 12:43
[2025-05-10 12:50] LABS: EDUAAPPEAR Clear; EDUABILI Negative (Negative); EDUABLOOD Trace (Negative); EDUACOLOR1 Yellow; EDUAGLUCOSE Negative (Negative); EDUAKETONE Negative (Negative); EDUALEUKO Negative (Negative); EDUANITRATE Negative (Negative); EDUAPH 5.5; EDUAPROTEIN Negative (Negative); EDUASPGRAVITY 1.025; EDUAUROBILI 0.2
== END 2025-05-10 12:49 | disposition home or self-care (01) ==
DX: N39.0 Urinary tract infection, site not specified (principal); F17.210 Nicotine dependence, cigarettes, uncomplicated; F12.90 Cannabis use, unspecified, uncomplicated; E78.5 Hyperlipidemia, unspecified; J44.9 Chronic obstructive pulmonary disease, unspecified; M79.7 Fibromyalgia; Z85.3 Personal history of malignant neoplasm of breast; Z90.12 Acquired absence of left breast and nipple
CPT/HCPCS: 81003; 87086; 99213; G0463

== ENCOUNTER 2025-05-14 10:08 | Emergency (ER) | payer MEDICARE, MEDICAID, SELFPAY ==
[2025-05-14 10:12] VITALS: BP 142/96; PULSE 88; RESP 18; TEMP 36.6; O2SAT 96
== END 2025-05-14 12:03 | disposition left against medical advice (07) ==
DX: R10.32 Left lower quadrant pain (principal)
CPT/HCPCS: 99199